=== PATIENT | female | born 1950 | race Caucasian/White ===

== ENCOUNTER 2016-10-13 14:03 | Inpatient (IN) | payer OTHER ==
[~2016-10-13] VITALS: Ht 162.6 cm; Wt 68.5 kg
[~2016-10-13 14:03] MED LIST: CLOP1TAB15 PO
[2016-10-13 15:00] VITALS: BP 175/75; PULSE 68; TEMP 36.5; O2SAT 98; Ht 162.6 cm; Wt 68.5 kg
[2016-10-13] MEDS ORDERED: ACETAMINOPHEN 325 MG TAB PO PRN (15:30)
[2016-10-13] MEDS ORDERED: MAGNESIUM HYDROXIDE SUSP 30 ML UDC PO PRN (15:30)
[2016-10-13] MEDS ORDERED: ONDANSETRON INJ 2 MG/ML 2 ML VIAL IV PRN (15:30)
[2016-10-13] MEDS ORDERED: POLYETHYLENE (MIRALAX) 17 GM PACK PO PRN (15:30)
[2016-10-13] MEDS ORDERED: ALUMINUM/MAGNESIUM/SIMETH (MAALOX MAX) 30 ML UDC PO PRN (15:30)
--- NOTE | 2016-10-13 16:20 | History and Physical ---
History & Physical Date & Time of Service: Oct 13, 2016 at 16:00 Chief Complaint: Cellulitis Of Left Heel Primary Care Physician: Rico Jeffery D.OKarina History of Present Illness Source: patient, clinic records, hospital records Patient seen and examined. 66 year old female with PMHx of PAD, HTN, HLD, and nonhealing surgical wound/skin graft site presents from wound care and infectious disease as a direct admission for wound infection. Patient has had a complicated course following a tendon transfer for dropped foot in September 2015 since then she has had a nonhealing wound with osteomyelitis as well. In July 2016 she had a skin graft placed to the area by Dr. Anderson. Since then she has been doing fairly well how ever over the last several days she has developed erythema and edema and notes a foul smelling odor. She was seen by wound care this morning and part of her skin graft is not taking well and the area appears to be possibly infected. The wound was debrided and dressed and she was instructed to return to the wound clinic in the afternoon when ID would be there. This afternoon she was seen by Dr. Timmons who suggested admission for IV antibiotics. Patient reports she has minimal feeling in her LLE. She reports feeling generally at baseline denying fevers, chills, URI symptoms, chest pain, SOB, nausea, vomiting, diarrhea, dysuria, calf pain. She will be admitted for further workup and treatment. 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 Surgical Problems: (1) S/P section Status: Chronic (2) S/p left ankle surgery Permanent Comment: 09/2015- Left Ankle Open Achilles Tendon Lengthening, Open Flexor Hallucis Longus and Flexor Digitorum Longus Lengthening, Posterior Tibial Tendon Transfer to cuboid, Posterior Ankle Capsulotomy Status: Chronic (3) S/p left hip surgery Status: Chronic (4) S/P lumbar spinal fusion Status: Chronic (5) s/p resection sarcoma left thigh Permanent Comment: [facility] 1990 Status: Chronic (6) S/P tonsillectomy and adenoidectomy Status: Chronic Family History DVT FATHER FH: CAD (coronary artery disease) MOTHER (AL age 70) FH: pulmonary embolism SISTER Social History Smoking Status: Former Smoker Alcohol Use: none Drug Use: none Marital Status: Housing status: lives with family Occupational Status: retired Immunizations History of Influenza Vaccine: Yes Influenza Vaccine Date: Apr 19, 2013 History of Tetanus Vaccine?: Unknown History of Pneumococcal: No History of Hepatitis B Vaccine: Unknown Multi-Drug Resistant Organisms History of MDRO: Yes Type of MDRO: MRSA Allergies Coded Allergies: Vancomycin (Verified Adverse Reaction, Severe, WORSENING RENAL FUNCTION, 09/01/16) Patient prescribed both vancomycin and pip/tazo therapy. Patient's vancomycin trough level for the 800mg IV q12h dosing came back subtherapeutic at 9.7mcg/ml. Vancomycin dose was changed to 1400mg IV q12h to provide an increase in trough and get a therapeutic level. However, trough level returned back on this newer dose as 19.9mcg/ml. Deemed dose to having caused a higher goal trough and determined that a lower dose of 1000mg IV q12h was needed to lower trough into goal range. However, patient's renal function had worsened on 08/02 from 0.46mg/dl for SCr on 08/01 to a SCr of 1.8mcg/ml. This could have been due to the vancomycin dosing or the combination of the patient being on vancomycin and pip/zosyn. At this point ID recommended to switch patient to daptomycin and continue on the piperacillin/tazobactam. Dr. Bagley was made aware of the situation. Renal function was to continue to be monitored as well as the vancomycin levels. Cetirizine (Verified Adverse Reaction, Unknown, BOWEL CRAMPS, 08/26/16) Home Medications Scheduled Amitriptyline Hcl (Elavil), 3 TAB PO HS Aspirin (Aspirin Ec), 81 MG PO QAM Atorvastatin (Lipitor), 20 MG PO QPM Calcium Carbonate (Calcium 600), 600 MG PO DAILY Carvedilol (Coreg), 1 TAB PO BID Citalopram Hydrobromide (Citalopram Hydrobromide), 20 MG PO DAILY Ferrous Sulfate (Ferrous Sulfate), 325 MG PO BID Fish Oil (Rome-3), 4 CAP PO DAILY Oxycodone Hcl (Oxycontin), 60 MG PO Q12 Trazodone Hcl (Trazodone), 50 MG PO HS Scheduled PRN Alprazolam (Xanax), 0.5 MG PO TID PRN for ANXIETY Oxycodone Ir (Roxicodone Ir), 5 MG PO Q4H PRN for Pain Review of Systems See above for pertinent positives & negatives. A total of 10 systems reviewed and were otherwise negative. Physical Exam Vital Signs Date Time Temp Pulse Resp B/P Pulse Ox O2 Delivery O2 Flow Rate FiO2 10/13/16 15:00 36.5 68 18 175/75 98 Room Air General Appearance: + pertinent finding (Very pleasant WD/WN 66 year old female sitting on edge of bed in NAD ) Head: normocephalic, atraumatic Eyes: PERRL, EOMI, sclerae normal ENT: hearing grossly normal, pharynx normal Neck: supple, no JVD, trachea midline Respiratory/Chest: chest non-tender, lungs clear, normal breath sounds, no respiratory distress, no accessory muscle use Cardiovascular: regular rate, rhythm, no gallop, no JVD, no murmur, normal peripheral pulses Abdomen/GI: normal bowel sounds, non tender, soft Back: normal inspection, no muscle spasm Extremities/Musculoskelatal: + pertinent finding (Left foot with dressing I/C/D , difficult to appreciate pulses, +1-2 pitting edema left foot, erythema extending up to the calf ) Neurologic/Psych: alert, oriented x 3, + pertinent finding (decreased motor and sensation LLE ) Skin: normal color, warm/dry, no rash, + pertinent finding (erythema edema to LLE with dressing I/C/D, Right thigh skin graft site well healing ) Lymphatic: no adenopathy Diagnostics Laboratory Results Results Past 24 Hours Test 10/13/16 15:34 10/13/16 15:36 Range/Units Microbiology Results 10/13/16 Blood Culture, Kathia Batch Pending 10/13/16 Blood Culture, Kathia Batch Pending Impression Assessment and Plan 66 year old female sent as direct admission from wound care for likely infection to recent skin graft NONHEALING LEFT LOWER EXTREMITY WOUND S/P SKIN GRAFT WITH SURROUNDING CELLULITIS - H/O MRSA -Admit to med/surg -Nontoxic in appears, afebrile, VS stable -CBC, PRP pending -Wound cultures, blood cultures obtain -Empirically treat with Daptomycin and Zosyn per ID -Infectious disease consult placed for further input -Wound care nurse and physician consult placed for further input -Doppler US to r/o DVT -BELINDA to obtain pedal pulses -CBC, PRP, Mg daily -contact precautions HTN -175/75 on arrival -repeat once patient has settle in -continue Coreg BID HLD -hold statin while on daptomycin PAD -continue Aspirin -Ankle brachial index pending DEPRESSION -continue Amitriptyline, Trazodone, Xanax, Celexa H/O LYMPHOSARCOMA -stable per patient CHRONIC PAIN SYNDROME -continue home pain regimen -bowel regimen ordered DVT PROPHYLAXIS: Sq Lovenox CODE STATUS: FULL CODE DISPO:In my clinical judgment this beneficiary meets acute admission criteria, established by [facility], that includes being hospitalized through two midnights. Patient seen in collaboration with Dr. Martínez Attending Note: Patient is a 66 yr old female with PMH of PAD, HTN, HLD,and left LE nonhealing surgical wound S/P skin graft, h/o osteomyelitis presents with history of redness, swelling, drainage from the wound since last few days. Patient is a direct admit on recommendations from for IV antibiotics. Physical Exam: Vital signs as noted above General; Moderately built and nourished HEENT: NC/AT, EOMI, PERRLA Neck: Supple, No JVD CVS: S1, S2, no murmur Resp: NVBS, CTA Abd: soft, non tender, BS present UI SOFTWARE DEVELOPER: AAO X3, Left LE numbness (chronic), no other gross deficits EXT: Left LE in bandage, +erythema, swelling, wound Skin: Warm Assessment and Plan: Left LE non healing wound/Cellulitis: H/O LLE dropped foot S/P fall Labs pending currently Start on IV Dapto and Zosyn per recommendations from ID Blood/Wound cultures Consult ID Check arterial and venous duplex Wound consult Agrre with assessment and plan of Megan Black PA-C as above VTE Prophylaxis VTE Risk Assessment Done? Y/N: Yes Risk Level: Moderate
[2016-10-13] MEDS ORDERED: DAPTOMYCIN CONSULT ACTIVE SCH ×2 (16:26)
[2016-10-13] MEDS ORDERED: PIPERACILL/TAZOBAC CONSULT ACTIVE PRN (16:30)
[2016-10-13] MEDS ORDERED: PATIENT'S HEIGHT AND/OR WEIGHT NEEDED SCH (16:30)
[2016-10-13 17:05] LABS: BASO % 0.6 %; BASO ABS # 0.03 K/uL (0-0.2); COMPLETE YES; EOS % 5.7 %; IG% 0.2 %; LYMPH % 41.9 %; LYMPH ABS # 2.13 K/uL (1.2-3.4); MEAN CELL VOLUME 90.2 fL (80-100); MEAN CORPUSCULAR HEMOGLOBIN 30.1 pg (25-34); MEAN CORPUSCULAR HGB CONC 33.3 g/dl (32-36); MEAN PLATELET VOLUME 9.7 fL (7.4-10.4); MONO % 6.7 %; NEUT % 44.9 %; PLATELET COUNT 182 K/uL (130-400); RED BLOOD COUNT 3.66 M/uL (4.2-5.4); WHITE BLOOD COUNT 5.08 K/uL (4.8-10.8)
[2016-10-13 17:23] LABS: INR 0.9 (0.9-1.1); PROTHROMBIN TIME (PATIENT) 10.1 SECONDS (9.0-12.0)
[2016-10-13] MEDS: DAPTOmycin IV 275 MG in SODIUM CHLORIDE 0.9% 50ML 50 ML IV SCH (17:34)
[2016-10-13 17:38] LABS: CREATININE 0.74 mg/dl (0.60-1.20)
[2016-10-13 17:39] LABS: ALB/GLOB RATIO 0.8 (0.9-2); BUN/CREATININE RATIO 23.1 (10-20); CALCIUM 9.1 mg/dl (8.5-10.1); MAGNESIUM 2.1 mg/dl (1.8-2.4); POTASSIUM 4.4 mmol/L (3.5-5.1)
[2016-10-13] MEDS ORDERED: PIPERACILL/TAZOBAC IV 3.375 GM in DEXTROSE 5% 100ML IV ONE (18:00)
[2016-10-13 18:28] VITALS: BP 157/77; PULSE 68; TEMP 36.7; O2SAT 97
--- NOTE | 2016-10-13 20:16 | DIAGNOSTIC IMAGING REPORT ---
LEFT LOWER EXTREMITY VENOUS DOPPLER CLINICAL HISTORY: Left heel cellulitis. Redness and swelling within the left lower extremity. COMPARISON STUDY: No previous studies for comparison. TECHNIQUE: Sonography of the deep venous system of the left lower extremity was performed. Compression and augmentation were evaluated. FINDINGS: The left common femoral, superficial femoral and popliteal veins were compressible. Augmentation was normal. Flow was shown within the deep calf vessels. IMPRESSION: No evidence of deep venous thrombus within the left lower extremity. Electronically signed by: Moe Mooney M.D. 10/13/2016 8:14 PM Dictated Date/Time: 10/13/2016 8:13 PM
--- NOTE | 2016-10-13 20:17 | DIAGNOSTIC IMAGING REPORT ---
BILATERAL ANKLE TO BRACHIAL INDICES CLINICAL HISTORY: Left heel cellulitis. COMPARISON STUDY: No previous studies for comparison. FINDINGS: The right ankle to brachial index measured 0.87 when using the posterior tibial artery and 0.85 when using the dorsalis pedis. The left ankle to brachial index measured 0.55 when using posterior tibial artery and dorsalis pedis. IMPRESSION: 1. Diminished left ankle to brachial index of 0.55. 2. Minimally diminished right ankle to brachial index of 0.87. Electronically signed by: Moe Mooney M.D. 10/13/2016 8:15 PM Dictated Date/Time: 10/13/2016 8:14 PM
[2016-10-13] MEDS: ENOXAPARIN 40 MG/0.4 ML SYR SQ SCH (20:33)
[2016-10-13] MEDS: FERROUS SULFATE 325 MG TAB PO SCH (20:34)
[2016-10-13] MEDS: OXYCODONE HCL 20 MG TABCR (OXYCONTIN) PO SCH (20:34)
[2016-10-13] MEDS: CARVEDILOL 6.25 MG TAB PO SCH (20:34)
[2016-10-13] MEDS: AMITRIPTYLINE HCL 25 MG TAB PO SCH (20:34)
[2016-10-13] MEDS: ALPRAZOLAM 0.5 MG TAB PO PRN (22:50)
[2016-10-13] MEDS: TRAZODONE HCL 50 MG TAB PO SCH (22:50)
[2016-10-13 23:33] VITALS: BP_SYST 174; BP_SYST 179; BP_DIAS 80; BP_DIAS 83; PULSE 75; TEMP 36.7; O2SAT 95
[2016-10-14] MEDS: PIPERACILL/TAZOBAC IV 3.375 GM in DEXTROSE 5% 100ML IV SCH ×3 (01:58→18:11)
[2016-10-14 06:09] LABS: MEAN CELL VOLUME 89.5 fL (80-100); MEAN CORPUSCULAR HEMOGLOBIN 29.2 pg (25-34); MEAN CORPUSCULAR HGB CONC 32.6 g/dl (32-36); MEAN PLATELET VOLUME 9.4 fL (7.4-10.4); PLATELET COUNT 176 K/uL (130-400); WHITE BLOOD COUNT 4.73 K/uL (4.8-10.8)
[2016-10-14 06:45] LABS: BUN/CREATININE RATIO 22.2 (10-20); CALCIUM 8.7 mg/dl (8.5-10.1); CREATININE 0.78 mg/dl (0.60-1.20); MAGNESIUM 1.9 mg/dl (1.8-2.4); POTASSIUM 4.1 mmol/L (3.5-5.1)
[2016-10-14 07:49] VITALS: BP 110/70; PULSE 65; TEMP 36.5; O2SAT 93
[2016-10-14] MEDS: ASPIRIN 81 MG ECTAB PO SCH (08:22)
[2016-10-14] MEDS: FERROUS SULFATE 325 MG TAB PO SCH ×2 (08:22→20:56)
[2016-10-14] MEDS: CITALOPRAM 20 MG TAB PO SCH (08:22)
[2016-10-14] MEDS: CARVEDILOL 6.25 MG TAB PO SCH ×2 (08:23→20:56)
[2016-10-14] MEDS: CALCIUM CARBONATE 1250MG TAB PO SCH (08:23)
[2016-10-14] MEDS: OXYCODONE HCL 20 MG TABCR (OXYCONTIN) PO SCH ×2 (08:23→20:57)
[2016-10-14] MEDS: OMEGA-3 (PURIFIED FISH OIL) 1 GM CAP PO SCH (08:23)
--- NOTE | 2016-10-14 10:19 | Medical Consult ---
Consultation Date of Consultation: Oct 14, 2016. Attending Physician: Elpidio White MD Reason for Consultation: Nonhealing wound/skin graft History of Present Illness Patient is a 66 yo female well known to myself and the ID service for nonhealing wound of the left lower extremity. She had previously required skin grafting of the left lower extremity due to nonhealing, large wound along with IV antibiotic therapy and extended PO antibiotic therapy. She has been following up at the wound care center. She states that approximately 1 week ago , she was told to start putting Santyl on her wounds which made her left medial foot wounds bleed, so she stopped putting this on. She had been continuing this on her heel wound. During her last admission, the patient also had C. Diff colitis along with her nonhealing wound. Her previous records were reviewed in detail by myself today. Patient had previous cultures growing MRSA, Enterococcus, Enterobacter, and Group B Strep. Cultures from the wound care center on 10/13 are growing Gram negative bacilli with identification and sensitivities pending. WBC count on admission was 5.08. Creatinine was 0.74. Her Hep C screen was negative. Gram stain from left foot is showing gram positive cocci and few gram negative bacilli. The patient was placed empirically on IV Zosyn and Daptomycin. Lower extremity U/S of the LLE showed no DVT. BELINDA showed diminished left BELINDA and minimally diminished right BELINDA. Past Medical/Surgical History Medical Problems: (1) Acute kidney injury Status: Acute (2) Gangrene of lower extremity Status: Acute (3) Sepsis Status: Acute Medical Problems: (1) Anxiety (2) Benign hypertension (3) Cellulitis of left lower extremity (4) Closed fracture of femur (5) Depression (6) Dyslipidemia (7) Nonhealing surgical wound (8) PAD (peripheral artery disease) (9) PFO (patent foramen ovale) (10) Sarcoma Surgical Problems: (1) S/P section (2) S/p left ankle surgery (3) S/p left hip surgery (4) S/P lumbar spinal fusion (5) s/p resection sarcoma left thigh (6) S/P tonsillectomy and adenoidectomy Family History DVT FATHER FH: CAD (coronary artery disease) MOTHER (DE age 70) FH: pulmonary embolism SISTER Noncontributory Social History Smoking Status: Former Smoker Alcohol Use: none Drug Use: none Marital Status: Housing Status: lives with family Occupation Status: retired Allergies Coded Allergies: Vancomycin (Verified Adverse Reaction, Severe, WORSENING RENAL FUNCTION, 09/01/16) Patient prescribed both vancomycin and pip/tazo therapy. Patient's vancomycin trough level for the 800mg IV q12h dosing came back subtherapeutic at 9.7mcg/ml. Vancomycin dose was changed to 1400mg IV q12h to provide an increase in trough and get a therapeutic level. However, trough level returned back on this newer dose as 19.9mcg/ml. Deemed dose to having caused a higher goal trough and determined that a lower dose of 1000mg IV q12h was needed to lower trough into goal range. However, patient's renal function had worsened on 08/02 from 0.46mg/dl for SCr on 08/01 to a SCr of 1.8mcg/ml. This could have been due to the vancomycin dosing or the combination of the patient being on vancomycin and pip/zosyn. At this point ID recommended to switch patient to daptomycin and continue on the piperacillin/tazobactam. Dr. Bagley was made aware of the situation. Renal function was to continue to be monitored as well as the vancomycin levels. Cetirizine (Verified Adverse Reaction, Unknown, BOWEL CRAMPS, 08/26/16) Home Medications Reported Home Medications Medications Dose Route/Sig Max Daily Dose Days Date Category Elavil (Amitriptyline Hcl) 25 Mg Tab 3 Tab PO HS 30 10/13/16 Reported Oxycontin (Oxycodone Hcl) 60 Mg Tab 60 Mg PO Q12 09/08/16 Reported Coreg (Carvedilol) 6.25 Mg Tab 1 Tab PO BID 90 08/20/16 Reported Roxicodone Ir (Oxycodone HCl) 5 Mg Tab 5 Mg PO Q4H PRN 07/28/16 Reported Trazodone (Trazodone HCl) 50 Mg Tab 50 Mg PO HS 05/19/16 Reported Calcium 600 (Calcium Carbonate) 600 Mg Tab 600 Mg PO DAILY 05/19/16 Reported Citalopram Hydrobromide 20 Mg Tab 20 Mg PO DAILY 03/13/15 Reported Jefferson-3 (Fish Oil) 1 Ea Cap 4 Cap PO DAILY 02/25/15 Reported Aspirin Ec (Aspirin) 81 Mg Tab 81 Mg PO QAM 02/25/15 Reported Ferrous Sulfate 325 Mg Tab 325 Mg PO BID 12/27/13 Reported Lipitor (Atorvastatin) 20 Mg Tab 20 Mg PO QPM 12/27/13 Reported Xanax (Alprazolam) 0.5 Mg Tab 0.5 Mg PO TID PRN 03/27/13 Reported Current Inpatient Medications Current Inpatient Medications Medications (Trade) Dose Ordered Sig/Ocnnor Route Start Time Stop Time Status Last Admin Dose Admin Enoxaparin Sodium (Lovenox Inj) 40 mg Q24H SQ 10/13/16 20:00 11/12/16 19:59 10/13/16 20:33 40 MG Acetaminophen (Tylenol Tab) 650 mg Q4H PRN PO 10/13/16 15:30 11/12/16 15:29 Al Hydrox/Mg Hydrox/Simethicone (Maalox Max Susp) 15 ml Q4H PRN PO 10/13/16 15:30 11/12/16 15:29 Magnesium Hydroxide (Milk Of Magnesia Susp) 30 ml Q6H PRN PO 10/13/16 15:30 11/12/16 15:29 Polyethylene (Miralax Powder Packet) 17 gm DAILY PRN PO 10/13/16 15:30 11/12/16 15:29 Ondansetron HCl (Zofran Inj) 4 mg Q6H PRN IV 10/13/16 15:30 11/12/16 15:29 Alprazolam (Xanax Tab) 0.5 mg TID PRN PO 10/13/16 15:45 11/12/16 15:44 10/13/16 22:50 0.5 MG Amitriptyline HCl (Elavil Tab) 75 mg HS PO 10/13/16 21:00 11/12/16 20:59 10/13/16 20:34 75 MG Aspirin (Ecotrin Tab) 81 mg QAM PO 10/14/16 08:00 11/13/16 07:59 10/14/16 08:22 81 MG Carvedilol (Coreg Tab) 6.25 mg BID PO 10/13/16 20:00 11/12/16 19:59 10/14/16 08:23 6.25 MG Citalopram Hydrobromide (celeXA TAB) 20 mg DAILY PO 10/14/16 08:00 11/13/16 07:59 10/14/16 08:22 20 MG Ferrous Sulfate (Feosol Tab) 325 mg BID PO 10/13/16 20:00 11/12/16 19:59 10/14/16 08:22 325 MG Fish Oil (Jefferson-3 (Purified Fish Oil) Cap) 4 gm DAILY PO 10/14/16 08:00 11/13/16 07:59 10/14/16 08:23 4 GM Oxycodone HCl (Oxycontin Tab) 60 mg Q12 PO 10/13/16 21:00 10/27/16 20:59 10/14/16 08:23 60 MG Oxycodone HCl (Roxicodone Immediate Rel Tab) 5 mg Q4H PRN PO 10/13/16 15:45 10/27/16 15:44 Trazodone HCl (Desyrel Tab) 50 mg HS PO 10/13/16 21:00 11/12/16 20:59 10/13/16 22:50 50 MG Calcium Carbonate (oS-Zi 500 TAB) 1,250 mg DAILY PO 10/14/16 08:00 11/13/16 07:59 10/14/16 08:23 1,250 MG Daptomycin (Consult) 1 ea UD N/A 10/13/16 16:26 11/12/16 16:25 Piperacillin Sod/ Tazobactam Sod 1 ea 1 ea UD PRN N/A 10/13/16 16:30 11/12/16 16:29 Daptomycin 275 mg/ Sodium Chloride 55.5 ml @ 120 mls/hr DAILY@1700 IV 10/13/16 17:00 10/23/16 16:59 10/13/16 17:34 120 MLS/HR Piperacillin Sod/ Tazobactam Sod/ Dextrose (Zosyn Iv/D5 100ml) 115 ml @ 28.75 mls/ hr Q8@0200,1000,1800 IV 10/14/16 02:00 10/23/16 13:59 10/14/16 01:58 28.75 MLS/HR Review of Systems Constitutional: No chills, No fever, No sweats Eyes: No worsening of vision ENT: No hearing loss Respiratory: No cough, No shortness of breath Cardiovascular: No chest pain, No palpitations Abdomen: No diarrhea, No nausea, No pain, No vomiting Musculoskeletal: + problem reported (left lower extremity with weeping/ bleeding wounds recently due to Santyl use) Genitourinary - Female: No dysuria, No urinary frequency Neurologic: + numbness/tingling (left lower extremity, decreased sensation) Integumentary: + new/changing skin lesions (weeping/bleeding from left lower extremity wounds), No rash Physical Exam Date Time Temp Pulse Resp B/P Pulse Ox O2 Delivery O2 Flow Rate FiO2 10/14/16 07:49 36.5 65 16 110/70 93 Room Air 10/14/16 00:20 Room Air 10/13/16 23:33 36.7 75 17 179/80 95 Room Air 174/83 10/13/16 20:15 Room Air 10/13/16 18:28 36.7 68 18 157/77 97 Room Air 10/13/16 15:00 36.5 68 18 175/75 98 Room Air General Appearance: WD/WN, no apparent distress Head: normocephalic, atraumatic Eyes: normal inspection, sclerae normal ENT: hearing grossly normal Neck: supple, trachea midline Respiratory/Chest: chest non-tender, lungs clear, normal breath sounds, no respiratory distress, no accessory muscle use Cardiovascular: regular rate, rhythm Abdomen/GI: normal bowel sounds, non tender, soft Extremities/Musculoskelatal: + pertinent finding (left lower extremity with dressing in place. c/d/i. Waffle boots on) Neurologic/Psych: alert, normal mood/affect Skin: normal color, warm/dry, no rash Laboratory Results LEFT LOWER EXTREMITY VENOUS DOPPLER CLINICAL HISTORY: Left heel cellulitis. Redness and swelling within the left lower extremity. COMPARISON STUDY: No previous studies for comparison. TECHNIQUE: Sonography of the deep venous system of the left lower extremity was performed. Compression and augmentation were evaluated. FINDINGS: The left common femoral, superficial femoral and popliteal veins were compressible. Augmentation was normal. Flow was shown within the deep calf vessels. IMPRESSION: No evidence of deep venous thrombus within the left lower extremity. BILATERAL ANKLE TO BRACHIAL INDICES CLINICAL HISTORY: Left heel cellulitis. COMPARISON STUDY: No previous studies for comparison. FINDINGS: The right ankle to brachial index measured 0.87 when using the posterior tibial artery and 0.85 when using the dorsalis pedis. The left ankle to brachial index measured 0.55 when using posterior tibial artery and dorsalis pedis. IMPRESSION: 1. Diminished left ankle to brachial index of 0.55. 2. Minimally diminished right ankle to brachial index of 0.87. RUN DATE: 10/14/16 [facility] LAB PAGE 1 RUN TIME: 09 Specimen Inquiry PATIENT: ROXANNE LOYD LOC: [facility] U # : [id number] AGE/SX: 66/F ROOM: E4 REG : 10/13/[address]: Elpidio White MD : 1950 BED: 1 DIS : STATUS: ADM IN TLOC: SPEC #: [id number] JANE: 10/13/16-JAGJITK STATUS: RES REQ #: [id number] RECD: 10/13/[address]: Megan Black PA-C SOURCE: [facility] ENTR: 10/13/16 [facility] DR: Shubham Timmons MD [facility]: FOOT LEFT Christopher, Elpidio Pena , Nando Peguero, Rico Rae D.OKarina ORDERED: SURF [facility] COMMENTS: Specimen Comment left heel Has Specimen Been Obtained/Collected? Y Procedure Result Verified Site GRAM STAIN Final 10/14/16-899 RESULT NO WBCs SEEN MODERATE GRAM POSITIVE COCCI FEW GRAM NEGATIVE BACILLI SURFACE WOUND CULTURE PENDING Item Value Date Time Blood Culture Received 10/13/16 1540 Blood Pending Blood Culture Received 10/13/16 1530 Blood Pending Gram Stain - Final Resulted 10/13/16 0000 Ulcer Foot Left Gram Stain - Final Resulted 10/13/16 0000 Ulcer Leg Lower Left Gram Stain - Final Resulted 10/13/16 0000 Skin Ankle Left Last 24 Hours Test 10/13/16 15:40 10/14/16 05:11 White Blood Count 5.08 K/uL 4.73 K/uL Red Blood Count 3.66 M/uL 3.80 M/uL Hemoglobin 11.0 g/dL 11.1 g/dL Hematocrit 33.0 % 34.0 % Mean Corpuscular Volume 90.2 fL 89.5 fL Mean Corpuscular Hemoglobin 30.1 pg 29.2 pg Mean Corpuscular Hemoglobin Concent 33.3 g/dl 32.6 g/dl Platelet Count 182 K/uL 176 K/uL Mean Platelet Volume 9.7 fL 9.4 fL Neutrophils (%) (Auto) 44.9 % Lymphocytes (%) (Auto) 41.9 % Monocytes (%) (Auto) 6.7 % Eosinophils (%) (Auto) 5.7 % Basophils (%) (Auto) 0.6 % Neutrophils # (Auto) 2.28 K/uL Lymphocytes # (Auto) 2.13 K/uL Monocytes # (Auto) 0.34 K/uL Eosinophils # (Auto) 0.29 K/uL Basophils # (Auto) 0.03 K/uL RDW Standard Deviation 47.2 fL 46.7 fL RDW Coefficient of Variation 14.3 % 14.3 % Immature Granulocyte % (Auto) 0.2 % Immature Granulocyte # (Auto) 0.01 K/uL Prothrombin Time 10.1 SECONDS Prothromb Time International Ratio 0.9 Activated Partial Thromboplast Time 26.3 SECONDS Partial Thromboplastin Ratio 1.0 Sodium Level 142 mmol/L 141 mmol/L Potassium Level 4.4 mmol/L 4.1 mmol/L Chloride Level 106 mmol/L 105 mmol/L Carbon Dioxide Level 29 mmol/L 27 mmol/L Anion Gap 7.0 mmol/L 9.0 mmol/L Blood Urea Nitrogen 17 mg/dl 17 mg/dl Creatinine 0.74 mg/dl 0.78 mg/dl Est Creatinine Clear Calc Drug Dose 65.5 ml/min 62.1 ml/min Estimated GFR () 98.5 92.5 Estimated GFR (Non- 85.0 79.8 BUN/Creatinine Ratio 23.1 22.2 Random Glucose 84 mg/dl 112 mg/dl Calcium Level 9.1 mg/dl 8.7 mg/dl Magnesium Level 2.1 mg/dl 1.9 mg/dl Total Bilirubin 0.2 mg/dl Aspartate Amino Transf (AST/SGOT) 21 U/L Alanine Aminotransferase (ALT/SGPT) 33 U/L Alkaline Phosphatase 125 U/L Total Protein 7.1 gm/dl Albumin 3.1 gm/dl Globulin 4.0 gm/dl Albumin/Globulin Ratio 0.8 Chemistry Specimen Hemolysis Hepatitis C Antibody Screen NEG Assessment & Plan Patient with infected left lower extremity nonhealing wound. She is currently on IV Daptomycin and Zosyn. Recommend continuation of broad spectrum IV antibiotic therapy pending most recent culture results. She likely will need multiple days of IV abx, and final length will be determined by improvement. We will follow. Case reviewed and agree with above assessment.
[2016-10-14] MEDS: DAPTOmycin IV 275 MG in SODIUM CHLORIDE 0.9% 50ML 50 ML IV SCH (17:02)
--- NOTE | 2016-10-14 18:03 | Progress Note ---
Internal Med Progress Note Date of Service: Oct 14, 2016. Provider Documentation: SUBJECTIVE: resting comfortable afebrile hemodynamics stable appetite ok no nausea or diarrhea OBJECTIVE: Vital Signs-as noted below Exam: General-alert and oriented ENT-normal hearing Neck-no neck masses Lungs-cta b/l no wheezing or crackles Heart-s1 and s2 heard regular rate and rhythm no murmurs Abdomen-soft bowel sounds present non tender no distension Extremities-no erythema left foot in dressing Neuro-alert and awake moves extremities Lab data as noted below. ASSESSMENT & PLAN: 66 year old female sent as direct admission from wound care for likely infection to recent skin graft NONHEALING LEFT LOWER EXTREMITY WOUND S/P SKIN GRAFT WITH SURROUNDING CELLULITIS - H/O MRSA Empirically treat with Daptomycin and Zosyn per ID appreciate ID input Wound care nurse and physician consult placed for further input -Doppler US no DVT ankle brachial index has pvd consider vascular surgery consult HTN on Coreg BID will monitor HLD holding statin while on daptomycin PAD on Aspirin DEPRESSION on Amitriptyline, Trazodone, Xanax, Celexa H/O LYMPHOSARCOMA stable per patient CHRONIC PAIN SYNDROME on home pain regimen bowel regimen ordered DVT PROPHYLAXIS: Sq Lovenox CODE STATUS: FULL CODE DISPOSITION to be determined Vital Signs: Date Time Temp Pulse Resp B/P Pulse Ox O2 Delivery O2 Flow Rate FiO2 10/14/16 08:00 Room Air 10/14/16 07:49 36.5 65 16 110/70 93 Room Air 10/14/16 00:20 Room Air 10/13/16 23:33 36.7 75 17 179/80 95 Room Air 174/83 10/13/16 20:15 Room Air 10/13/16 18:28 36.7 68 18 157/77 97 Room Air Lab Results: Results Past 24 Hours Test 10/14/16 05:11 Range/Units White Blood Count 4.73 4.8-10.8 K/uL Red Blood Count 3.80 4.2-5.4 M/uL Hemoglobin 11.1 12.0-16.0 g/dL Hematocrit 34.0 37-47 % Mean Corpuscular Volume 89.5 80-100 fL Mean Corpuscular Hemoglobin 29.2 25-34 pg Mean Corpuscular Hemoglobin Concent 32.6 32-36 g/dl RDW Standard Deviation 46.7 36.4-46.3 fL RDW Coefficient of Variation 14.3 11.5-14.5 % Platelet Count 176 130-400 K/uL Mean Platelet Volume 9.4 7.4-10.4 fL Sodium Level 141 136-145 mmol/L Potassium Level 4.1 3.5-5.1 mmol/L Chloride Level 105 98-107 mmol/L Carbon Dioxide Level 27 21-32 mmol/L Anion Gap 9.0 3-11 mmol/L Blood Urea Nitrogen 17 7-18 mg/dl Creatinine 0.78 0.60-1.20 mg/dl Est Creatinine Clear Calc Drug Dose 62.1 ml/min Estimated GFR () 92.5 Estimated GFR (Non- 79.8 BUN/Creatinine Ratio 22.2 10-20 Random Glucose 112 70-99 mg/dl Calcium Level 8.7 8.5-10.1 mg/dl Magnesium Level 1.9 1.8-2.4 mg/dl
[2016-10-14 20:55] VITALS: BP 156/72; PULSE 82
[2016-10-14] MEDS: TRAZODONE HCL 50 MG TAB PO SCH (20:58)
[2016-10-14] MEDS: ALPRAZOLAM 0.5 MG TAB PO PRN (20:59)
[2016-10-14] MEDS: AMITRIPTYLINE HCL 25 MG TAB PO SCH (20:59)
[2016-10-14] MEDS: ENOXAPARIN 40 MG/0.4 ML SYR SQ SCH (21:01)
[2016-10-15 00:13] VITALS: BP 124/71; PULSE 72; TEMP 36.9; O2SAT 92
[2016-10-15] MEDS: PIPERACILL/TAZOBAC IV 3.375 GM in DEXTROSE 5% 100ML IV SCH ×3 (02:16→18:55)
[2016-10-15] MEDS: OXYCODONE HCL IR 5 MG TAB (IMMEDIATE RELEASE) PO PRN (06:40)
[2016-10-15 07:45] VITALS: BP 147/73; PULSE 64; TEMP 36.6; O2SAT 94
[2016-10-15] MEDS: COLLAGENASE OINT 30 GM TUBE EXT SCH (09:43)
[2016-10-15] MEDS: CARVEDILOL 6.25 MG TAB PO SCH ×2 (09:47→20:10)
[2016-10-15] MEDS: CITALOPRAM 20 MG TAB PO SCH (09:47)
[2016-10-15] MEDS: ASPIRIN 81 MG ECTAB PO SCH (09:47)
[2016-10-15] MEDS: FERROUS SULFATE 325 MG TAB PO SCH ×2 (09:48→20:10)
[2016-10-15] MEDS: OMEGA-3 (PURIFIED FISH OIL) 1 GM CAP PO SCH (09:48)
[2016-10-15] MEDS: CALCIUM CARBONATE 1250MG TAB PO SCH (09:49)
[2016-10-15] MEDS: OXYCODONE HCL 20 MG TABCR (OXYCONTIN) PO SCH ×2 (09:50→21:28)
--- NOTE | 2016-10-15 15:12 | Progress Note ---
Internal Med Progress Note Date of Service: Oct 15, 2016. Provider Documentation: SUBJECTIVE: The patient was seen and examined Denies any symptoms wants to participate in Physical therapy OBJECTIVE: Vital Signs-as noted below Exam: General-No distress Eyes-Normal ENT-Normal Neck-Supple Lungs-Clear to auscultate bilaterally Heart-Regular Abdomen-Benifn,no masses,bowel sound present Extremities-No edema Neuro-AAOx3 Lab data as noted below. ASSESSMENT & PLAN: NONHEALING LEFT LOWER EXTREMITY WOUND S/P SKIN GRAFT WITH SURROUNDING CELLULITIS - H/O MRSA Wound culture is growing MRSA as well Empirically treat with Daptomycin and Zosyn per ID Appreciate ID input Wound care nurse and physician consult placed for further input Doppler US no DVT Ankle brachial index has pvd Initiate PT/OT HTN On Coreg BID Monitor HLD holding statin while on daptomycin PAD on Aspirin DEPRESSION on Amitriptyline, Trazodone, Xanax, Celexa No acue issue H/O LYMPHOSARCOMA stable per patient CHRONIC PAIN SYNDROME On home pain regimen Bowel regimen ordered DVT PROPHYLAXIS: Sq Lovenox CODE STATUS: FULL CODE DISPOSITION to be determined Vital Signs: Date Time Temp Pulse Resp B/P Pulse Ox O2 Delivery O2 Flow Rate FiO2 10/15/16 07:45 36.6 64 16 147/73 94 Room Air 10/15/16 00:13 36.9 72 20 124/71 92 Room Air 10/15/16 00:05 Room Air 10/14/16 20:55 82 156/72 10/14/16 20:00 Room Air 10/14/16 16:00 Room Air
[2016-10-15 15:50] VITALS: BP 147/78; PULSE 74; TEMP 37; O2SAT 92
[2016-10-15] MEDS: DAPTOmycin IV 275 MG in SODIUM CHLORIDE 0.9% 50ML 50 ML IV SCH (18:03)
[2016-10-15] MEDS: ENOXAPARIN 40 MG/0.4 ML SYR SQ SCH (20:08)
[2016-10-15 20:10] VITALS: BP 146/66; PULSE 76
[2016-10-15] MEDS: AMITRIPTYLINE HCL 25 MG TAB PO SCH (21:27)
[2016-10-15] MEDS: TRAZODONE HCL 50 MG TAB PO SCH (21:27)
[2016-10-15] MEDS: ALPRAZOLAM 0.5 MG TAB PO PRN (21:28)
[2016-10-15 23:58] VITALS: BP 157/77; PULSE 76; TEMP 37.2; O2SAT 94
[2016-10-16] MEDS: PIPERACILL/TAZOBAC IV 3.375 GM in DEXTROSE 5% 100ML IV SCH ×3 (02:28→19:05)
[2016-10-16 06:15] LABS: HEMATOCRIT 31.8 % (37-47); MEAN CELL VOLUME 91.1 fL (80-100); MEAN CORPUSCULAR HEMOGLOBIN 30.4 pg (25-34); MEAN CORPUSCULAR HGB CONC 33.3 g/dl (32-36); MEAN PLATELET VOLUME 9.5 fL (7.4-10.4); PLATELET COUNT 197 K/uL (130-400); RED BLOOD COUNT 3.49 M/uL (4.2-5.4); WHITE BLOOD COUNT 4.52 K/uL (4.8-10.8)
[2016-10-16 06:49] LABS: CREATININE 0.74 mg/dl (0.60-1.20)
[2016-10-16 07:31] VITALS: BP 126/75; PULSE 65; TEMP 36.6; O2SAT 91
[2016-10-16] MEDS: CARVEDILOL 6.25 MG TAB PO SCH ×2 (09:02→21:01)
[2016-10-16] MEDS: ASPIRIN 81 MG ECTAB PO SCH (09:02)
[2016-10-16] MEDS: CITALOPRAM 20 MG TAB PO SCH (09:02)
[2016-10-16] MEDS: OMEGA-3 (PURIFIED FISH OIL) 1 GM CAP PO SCH (09:03)
[2016-10-16] MEDS: OXYCODONE HCL 20 MG TABCR (OXYCONTIN) PO SCH ×2 (09:03→20:59)
[2016-10-16] MEDS: CALCIUM CARBONATE 1250MG TAB PO SCH (09:03)
[2016-10-16] MEDS: FERROUS SULFATE 325 MG TAB PO SCH ×2 (09:03→21:01)
[2016-10-16] MEDS: COLLAGENASE OINT 30 GM TUBE EXT SCH (09:51)
[2016-10-16 15:41] VITALS: BP 115/68; PULSE 71; TEMP 36.8; O2SAT 92
[2016-10-16 15:45] VITALS: O2SAT 92
--- NOTE | 2016-10-16 15:51 | Progress Note ---
Internal Med Progress Note Date of Service: Oct 16, 2016. Provider Documentation: SUBJECTIVE: The patient was seen and examined Denies any symptoms Brighter today Waiting for PT OBJECTIVE: Vital Signs-as noted below Exam: General-No distress at rets Eyes-Normal ENT-Normal Neck-Supple Lungs-Clear to auscultate bilaterally Heart-Regular Abdomen-Benign,no masses,bowel sound present Extremities-No edema Neuro-AAOx3 Lab data as noted below. ASSESSMENT & PLAN: NONHEALING LEFT LOWER EXTREMITY WOUND S/P SKIN GRAFT WITH SURROUNDING CELLULITIS - H/O MRSA Wound culture is growing MRSA as well Empirically treat with Daptomycin and Zosyn per ID Appreciate ID input Wound care nurse and physician consult placed for further input Doppler US no DVT Ankle brachial index has pvd Initiate PT/OT HTN On Coreg BID Well controlled HLD Holding statin while on daptomycin PAD On Aspirin DEPRESSION On Amitriptyline, Trazodone, Xanax, Celexa No acue issue H/O LYMPHOSARCOMA Stable per patient CHRONIC PAIN SYNDROME On home pain regimen Bowel regimen ordered DVT PROPHYLAXIS: Sq Lovenox CODE STATUS: FULL CODE DISPOSITION To be determined Vital Signs: Date Time Temp Pulse Resp B/P Pulse Ox O2 Delivery O2 Flow Rate FiO2 10/16/16 15:41 36.8 71 18 115/68 92 Room Air 10/16/16 09:24 Room Air 10/16/16 07:31 36.6 65 18 126/75 91 Room Air 10/16/16 00:30 Room Air 10/15/16 23:58 37.2 76 20 157/77 94 Room Air 10/15/16 20:10 76 146/66 10/15/16 20:00 Room Air 10/15/16 16:00 Room Air 10/15/16 15:50 37.0 74 18 147/78 92 Room Air Lab Results: Results Past 24 Hours Test 10/16/16 05:13 Range/Units White Blood Count 4.52 4.8-10.8 K/uL Red Blood Count 3.49 4.2-5.4 M/uL Hemoglobin 10.6 12.0-16.0 g/dL Hematocrit 31.8 37-47 % Mean Corpuscular Volume 91.1 80-100 fL Mean Corpuscular Hemoglobin 30.4 25-34 pg Mean Corpuscular Hemoglobin Concent 33.3 32-36 g/dl RDW Standard Deviation 46.3 36.4-46.3 fL RDW Coefficient of Variation 14.1 11.5-14.5 % Platelet Count 197 130-400 K/uL Mean Platelet Volume 9.5 7.4-10.4 fL Creatinine 0.74 0.60-1.20 mg/dl Est Creatinine Clear Calc Drug Dose 65.5 ml/min Estimated GFR () 98.5 Estimated GFR (Non- 85.0
[2016-10-16] MEDS: DAPTOmycin IV 275 MG in SODIUM CHLORIDE 0.9% 50ML 50 ML IV SCH (16:56)
[2016-10-16] MEDS: ALPRAZOLAM 0.5 MG TAB PO PRN (20:58)
[2016-10-16 21:00] VITALS: BP 174/91; PULSE 75
[2016-10-16] MEDS: TRAZODONE HCL 50 MG TAB PO SCH (21:02)
[2016-10-16] MEDS: AMITRIPTYLINE HCL 25 MG TAB PO SCH (21:02)
[2016-10-16] MEDS: ENOXAPARIN 40 MG/0.4 ML SYR SQ SCH (21:02)
[2016-10-17] VITALS (7 sets, daily range): BP systolic 110–171; BP diastolic 63–78; PULSE 68–78; TEMP 36.5–36.7; O2SAT 92–94
[2016-10-17] MEDS: PIPERACILL/TAZOBAC IV 3.375 GM in DEXTROSE 5% 100ML IV SCH ×2 (01:44→10:33)
[2016-10-17] MEDS: CITALOPRAM 20 MG TAB PO SCH (08:52)
[2016-10-17] MEDS: CALCIUM CARBONATE 1250MG TAB PO SCH (08:53)
[2016-10-17] MEDS: CARVEDILOL 6.25 MG TAB PO SCH ×2 (08:53→19:44)
[2016-10-17] MEDS: FERROUS SULFATE 325 MG TAB PO SCH ×2 (08:53→19:44)
[2016-10-17] MEDS: OMEGA-3 (PURIFIED FISH OIL) 1 GM CAP PO SCH (08:54)
[2016-10-17] MEDS: OXYCODONE HCL 20 MG TABCR (OXYCONTIN) PO SCH ×2 (08:54→21:12)
[2016-10-17] MEDS: ASPIRIN 81 MG ECTAB PO SCH (08:54)
[2016-10-17] MEDS: COLLAGENASE OINT 30 GM TUBE EXT SCH (08:54)
--- NOTE | 2016-10-17 12:43 | Infectious Disease Progress Nt ---
Progress Note Date of Service Oct 17, 2016. Subjective Pt evaluation today including: conversation w/ patient, physical exam, chart review, lab review, review of studies, conversation w/ community health consultant (Pharmacy), review of inpatient medication list WBC count yesterday was 4.52. Creatinine is stable at 0.74. She continued on IV Daptomycin and Zosyn. I spoke with pharmacy- recommended deescalation since the patient's cultures are back. Her wound cultures are growing MRSA and Pasteurella Multocida. Blood cultures have shown no growth to date. She is feeling better. She states that she does not have pain in the left lower extremity currently. She has not had as much drainage either. She denies nausea , diarrhea, or abdominal pain. All Other Systems: Reviewed and Negative Medications Current Inpatient Medications Medications (Trade) Dose Ordered Sig/Connor Route Start Time Stop Time Status Last Admin Dose Admin Enoxaparin Sodium (Lovenox Inj) 40 mg Q24H SQ 10/13/16 20:00 11/12/16 19:59 10/16/16 21:02 40 MG Acetaminophen (Tylenol Tab) 650 mg Q4H PRN PO 10/13/16 15:30 11/12/16 15:29 Al Hydrox/Mg Hydrox/Simethicone (Maalox Max Susp) 15 ml Q4H PRN PO 10/13/16 15:30 11/12/16 15:29 Magnesium Hydroxide (Milk Of Magnesia Susp) 30 ml Q6H PRN PO 10/13/16 15:30 11/12/16 15:29 Polyethylene (Miralax Powder Packet) 17 gm DAILY PRN PO 10/13/16 15:30 11/12/16 15:29 Ondansetron HCl (Zofran Inj) 4 mg Q6H PRN IV 10/13/16 15:30 11/12/16 15:29 Alprazolam (Xanax Tab) 0.5 mg TID PRN PO 10/13/16 15:45 11/12/16 15:44 10/16/16 20:58 0.5 MG Amitriptyline HCl (Elavil Tab) 75 mg HS PO 10/13/16 21:00 11/12/16 20:59 10/16/16 21:02 75 MG Aspirin (Ecotrin Tab) 81 mg QAM PO 10/14/16 08:00 11/13/16 07:59 10/17/16 08:54 81 MG Carvedilol (Coreg Tab) 6.25 mg BID PO 10/13/16 20:00 11/12/16 19:59 10/17/16 08:53 6.25 MG Citalopram Hydrobromide (celeXA TAB) 20 mg DAILY PO 10/14/16 08:00 11/13/16 07:59 10/17/16 08:52 20 MG Ferrous Sulfate (Feosol Tab) 325 mg BID PO 10/13/16 20:00 11/12/16 19:59 10/17/16 08:53 325 MG Fish Oil ([place]-3 (Purified Fish Oil) Cap) 4 gm DAILY PO 10/14/16 08:00 11/13/16 07:59 10/17/16 08:54 4 GM Oxycodone HCl (Oxycontin Tab) 60 mg Q12 PO 10/13/16 21:00 10/27/16 20:59 10/17/16 08:54 60 MG Oxycodone HCl (Roxicodone Immediate Rel Tab) 5 mg Q4H PRN PO 10/13/16 15:45 10/27/16 15:44 10/15/16 06:40 5 MG Trazodone HCl (Desyrel Tab) 50 mg HS PO 10/13/16 21:00 11/12/16 20:59 10/16/16 21:02 50 MG Calcium Carbonate (oS-Zi 500 TAB) 1,250 mg DAILY PO 10/14/16 08:00 11/13/16 07:59 10/17/16 08:53 1,250 MG Daptomycin 1 ea 1 ea UD N/A 10/13/16 16:26 11/12/16 16:25 Daptomycin/Sodium Chloride (Cubicin IV/Nss 50ml) 55.5 ml @ 120 mls/hr DAILY@1700 IV 10/13/16 17:00 10/23/16 16:59 10/16/16 16:56 120 MLS/HR Collagenase 1 appln 1 appln DAILY EXT 10/15/16 08:00 11/14/16 07:59 Ampicillin Sodium/ Sulbactam Sodium/ Sodium Chloride (Unasyn Inj/Nss 100ml) 104 ml @ 200 mls/hr Q6H IV 10/17/16 16:00 10/27/16 15:59 Objective Vital Signs Date Time Temp Pulse Resp B/P Pulse Ox O2 Delivery O2 Flow Rate FiO2 10/17/16 11:00 Room Air 10/17/16 07:51 36.7 68 18 110/71 92 Room Air 10/17/16 04:00 70 127/66 10/17/16 00:30 Room Air 10/16/16 21:00 75 174/91 10/16/16 15:45 92 Room Air 10/16/16 15:41 36.8 71 18 115/68 92 Room Air Physical Exam General Appearance: WD/WN, no apparent distress Eyes: normal inspection, sclerae normal ENT: hearing grossly normal Neck: supple, trachea midline Respiratory/Chest: chest non-tender, lungs clear, normal breath sounds, no respiratory distress, no accessory muscle use Cardiovascular: regular rate, rhythm Abdomen: normal bowel sounds, non tender, soft Extremities: + pertinent finding (left lower extremity with wound on the left heel and also 2 small wounds on the medial left lower extremity. Minimal drainage today. Mild erythema of the mid-anterior tibial surface of the LLE) Neurologic/Psychiatric: alert, normal mood/affect Skin: warm/dry, no rash Laboratory Results RUN DATE: 10/15/16 [facility] PAGE 1 RUN TIME: 5095 Specimen Inquiry PATIENT: ROXANNE LOYD LOC: Jerry Tripp # : [id number] AGE/SX: 66/F ROOM: E404 REG : 10/13/[address]: Berna Gloria M.D. : 1950 BED: 1 DIS : STATUS: ADM IN TLOC: SPEC #: [id number] JANE: 10/13/16-UNK STATUS: COMP REQ #: [id number] RECD: 10/13/[address]: Megan Black PA-C SOURCE: ULCER ENTR: 10/13/[address]: Shubham Timmons MD SPDESC: LEG Elpidio Argueta , Nando Peguero, Rico Rae, D.OKarina ORDERED: SURF WND CU/SMR COMMENTS: Has Specimen Been Obtained/Collected? Y Procedure Result Verified Site GRAM STAIN Final 10/14/16-906 RESULT NO WBCs SEEN FEW GRAM POSITIVE COCCI SURFACE WOUND CULTURE Final 10/15/16-1334 Organism 1 STAPHYLOCOCCUS AUREUS QUANITY MODERATE SENS SENSITIVITY TO FOLLOW Organism 2 PASTEURELLA MULTOCIDA QUANITY MODERATE SENS NO SENSITIVITY TO FOLLOW SENSITIVITY RESULT INDICATES A METHICILLIN RESISTANT STAPH. AUREUS. PHONED TO ENRRIQUE RAMEZ ON 10/15/16 AT 1150 BY Valentin Jim. Results were verbalized back to AUSTEN. RESULTS WERE ALSO CALLED TO [facility] INFECTION CONTROL ANSWERING MACHINE ON 10/15/16 BY AUSTEN. 1. STAPHYLOCOCCUS AUREUS Target Route Dose RX AB Cost M.I.C. IQ ------ ----- ------ -- ------ -------- - ------ TRIMET/SULFA S <=0.5/ 9.5 * OXACILLIN R * >2 VANCOMYCIN S 2 ERYTHROMYCIN R >4 TETRACYCLINE S <=4 CLINDAMYCIN R >4 DAPTOMYCIN S <=0.5 RIFAMPIN S <=1 S = SENSITIVE I = INTERMEDIATE R = RESISTANT Item Value Date Time Blood Culture - Preliminary Resulted 10/13/16 1540 Blood NO GROWTH TO DATE. Blood Culture - Preliminary Resulted 10/13/16 1530 Blood NO GROWTH TO DATE. Gram Stain - Final Complete 10/13/16 0000 Ulcer Foot Left Gram Stain - Final Complete 10/13/16 0000 Ulcer Leg Lower Left Gram Stain - Final Complete 10/13/16 0000 Skin Ankle Left Assessment and Plan Patient with infected left lower extremity nonhealing wound. She is currently on IV Daptomycin and Zosyn. Will change to IV Unasyn and continue IV Daptomycin for now. Pending further improvement, the patient will continue IV abx therapy. Likely will attempt transition to PO therapy if she continues to improve. We will follow. Plan: 1. Continue IV Daptomycin 2. D/C Zosyn- change to IV Unasyn Case reviewed and agree with above assessment
[2016-10-17] MEDS: AMPICILLIN/SULBACTAM SOD INJ 1,500 MG in SODIUM CHLORIDE 0.9% 100ML 100 ML IV SCH ×2 (15:58→21:51)
[2016-10-17] MEDS: DAPTOmycin IV 275 MG in SODIUM CHLORIDE 0.9% 50ML 50 ML IV SCH (17:00)
--- NOTE | 2016-10-17 17:21 | Progress Note ---
Internal Med Progress Note Date of Service: Oct 17, 2016. Provider Documentation: SUBJECTIVE: The patient was seen and examined Denies any symptoms Brighter today Waiting for PT Leg wound is getting better OBJECTIVE: Vital Signs-as noted below Exam: General-No distress at rest Eyes-Normal ENT-Normal Neck-Supple Lungs-Clear to auscultate bilaterally Heart-Regular Abdomen-Benign,no masses,bowel sound present Extremities-No edema Left heel wound is seen today About 4-5 cm sq and 1 cm deep Nice granulation tissue No Pus Neuro-AAOx3 Lab data as noted below. ASSESSMENT & PLAN: NONHEALING LEFT LOWER EXTREMITY WOUND S/P SKIN GRAFT WITH SURROUNDING CELLULITIS - H/O MRSA Wound culture is growing MRSA as well Empirically treat with Daptomycin and Zosyn per ID Appreciate ID input Wound care nurse and physician consult placed for further input Doppler US no DVT Ankle brachial index has pvd Left heel wound is seen today About 4-5 cm sq and 1 cm deep Nice granulation tissue No drainage Initiate PT/OT-tolerating well Continue IV Dapto and IV Unasyn for now May be transition to oral on discharge HTN On Coreg BID Well controlled HLD Holding statin while on daptomycin PAD On Aspirin DEPRESSION On Amitriptyline, Trazodone, Xanax, Celexa No acue issue H/O LYMPHOSARCOMA Stable per patient CHRONIC PAIN SYNDROME On home pain regimen Bowel regimen ordered DVT PROPHYLAXIS: Sq Lovenox CODE STATUS: FULL CODE DISPOSITION To be determined Vital Signs: Date Time Temp Pulse Resp B/P Pulse Ox O2 Delivery O2 Flow Rate FiO2 10/17/16 17:04 68 134/63 10/17/16 16:00 94 Room Air 10/17/16 15:18 36.7 74 22 171/78 94 Room Air 10/17/16 11:00 Room Air 10/17/16 07:51 36.7 68 18 110/71 92 Room Air 10/17/16 04:00 70 127/66 10/17/16 00:30 Room Air 10/16/16 21:00 75 174/91
[2016-10-17] MEDS: ENOXAPARIN 40 MG/0.4 ML SYR SQ SCH (19:44)
[2016-10-17] MEDS: AMITRIPTYLINE HCL 25 MG TAB PO SCH (21:11)
[2016-10-17] MEDS: TRAZODONE HCL 50 MG TAB PO SCH (21:11)
[2016-10-17] MEDS: ALPRAZOLAM 0.5 MG TAB PO PRN (21:12)
[2016-10-18] MEDS: AMPICILLIN/SULBACTAM SOD INJ 1,500 MG in SODIUM CHLORIDE 0.9% 100ML 100 ML IV SCH ×4 (03:52→22:07)
[2016-10-18 07:34] VITALS: BP 153/81; PULSE 70; TEMP 36.6; O2SAT 95
[2016-10-18] MEDS: COLLAGENASE OINT 30 GM TUBE EXT SCH (08:45)
[2016-10-18] MEDS: CALCIUM CARBONATE 1250MG TAB PO SCH (08:46)
[2016-10-18] MEDS: CARVEDILOL 6.25 MG TAB PO SCH ×2 (08:46→20:40)
[2016-10-18] MEDS: OXYCODONE HCL 20 MG TABCR (OXYCONTIN) PO SCH ×2 (08:46→20:42)
[2016-10-18] MEDS: FERROUS SULFATE 325 MG TAB PO SCH ×2 (08:46→20:41)
[2016-10-18] MEDS: ASPIRIN 81 MG ECTAB PO SCH (08:46)
[2016-10-18] MEDS: OMEGA-3 (PURIFIED FISH OIL) 1 GM CAP PO SCH (08:46)
[2016-10-18] MEDS: CITALOPRAM 20 MG TAB PO SCH (08:47)
--- NOTE | 2016-10-18 09:31 | PROGRESS NOTE ---
DATE: 10/14/2016 SUBJECTIVE: The patient is seen today for followup following admission to [facility] yesterday for the management of cellulitis to the left lower extremity in the face of a recent split thickness grafting. The patient denies any specific systemic complaints today. OBJECTIVE: The patient's vital signs were reviewed and found to be unremarkable. The patient is afebrile. The patient is currently receiving intravenous antibiotic therapy. Review of the patient's wound sites are essentially unchanged from yesterday's visit in the outpatient wound clinic. There is no increased erythema or active drainage from either the postoperative ulcerations or from the stage II pressure ulcer of the left heel. Odor that was present yesterday seems to have dissipated. ASSESSMENT: 1. Stage II pressure ulcer left heel, stable. 2. Postoperative ulcerations of the incision site left lower extremity. PLAN: At this time, the left heel will be managed with any irrigating wound VAC, 2 hours off and 10 minutes on, irrigation with normal saline. It is anticipated upon discharge that this may be converted to an outpatient wound VAC. The incision ulcerations will be managed with Silvercel and gauze, changed daily. The patient will continue to be monitored on the inpatient side and be followed up upon discharge.
--- NOTE | 2016-10-18 13:41 | Infectious Disease Progress Nt ---
Progress Note Date of Service Oct 18, 2016. Subjective Pt evaluation today including: conversation w/ patient, physical exam, chart review, lab review, review of studies, review of inpatient medication list Patient is emotional this morning because she states that her is in the ED after passing out at home. She states that otherwise she is feeling well. She is tolerating he abx well. She continue to have an irrigating wound vac in place. No new labs or imaging studies. Blood cultures continue show no growth. All Other Systems: Reviewed and Negative Medications Current Inpatient Medications Medications (Trade) Dose Ordered Sig/Connor Route Start Time Stop Time Status Last Admin Dose Admin Enoxaparin Sodium (Lovenox Inj) 40 mg Q24H SQ 10/13/16 20:00 11/12/16 19:59 10/17/16 19:44 40 MG Acetaminophen (Tylenol Tab) 650 mg Q4H PRN PO 10/13/16 15:30 11/12/16 15:29 Al Hydrox/Mg Hydrox/Simethicone (Maalox Max Susp) 15 ml Q4H PRN PO 10/13/16 15:30 11/12/16 15:29 Magnesium Hydroxide (Milk Of Magnesia Susp) 30 ml Q6H PRN PO 10/13/16 15:30 11/12/16 15:29 Polyethylene (Miralax Powder Packet) 17 gm DAILY PRN PO 10/13/16 15:30 11/12/16 15:29 Ondansetron HCl (Zofran Inj) 4 mg Q6H PRN IV 10/13/16 15:30 11/12/16 15:29 Alprazolam (Xanax Tab) 0.5 mg TID PRN PO 10/13/16 15:45 11/12/16 15:44 10/17/16 21:12 0.5 MG Amitriptyline HCl (Elavil Tab) 75 mg HS PO 10/13/16 21:00 11/12/16 20:59 10/17/16 21:11 75 MG Aspirin (Ecotrin Tab) 81 mg QAM PO 10/14/16 08:00 11/13/16 07:59 10/18/16 08:46 81 MG Carvedilol (Coreg Tab) 6.25 mg BID PO 10/13/16 20:00 11/12/16 19:59 10/18/16 08:46 6.25 MG Citalopram Hydrobromide (celeXA TAB) 20 mg DAILY PO 10/14/16 08:00 11/13/16 07:59 10/18/16 08:47 20 MG Ferrous Sulfate (Feosol Tab) 325 mg BID PO 10/13/16 20:00 11/12/16 19:59 10/18/16 08:46 325 MG Fish Oil ([place]-3 (Purified Fish Oil) Cap) 4 gm DAILY PO 10/14/16 08:00 11/13/16 07:59 10/18/16 08:46 4 GM Oxycodone HCl (Oxycontin Tab) 60 mg Q12 PO 10/13/16 21:00 10/27/16 20:59 10/18/16 08:46 60 MG Oxycodone HCl (Roxicodone Immediate Rel Tab) 5 mg Q4H PRN PO 10/13/16 15:45 10/27/16 15:44 10/15/16 06:40 5 MG Trazodone HCl (Desyrel Tab) 50 mg HS PO 10/13/16 21:00 11/12/16 20:59 10/17/16 21:11 50 MG Calcium Carbonate (oS-Zi 500 TAB) 1,250 mg DAILY PO 10/14/16 08:00 11/13/16 07:59 10/18/16 08:46 1,250 MG Daptomycin 1 ea 1 ea UD N/A 10/13/16 16:26 11/12/16 16:25 Daptomycin/Sodium Chloride (Cubicin IV/Nss 50ml) 55.5 ml @ 120 mls/hr DAILY@1700 IV 10/13/16 17:00 10/23/16 16:59 10/17/16 17:00 120 MLS/HR Collagenase 1 appln 1 appln DAILY EXT 10/15/16 08:00 11/14/16 07:59 Ampicillin Sodium/ Sulbactam Sodium/ Sodium Chloride (Unasyn Inj/Nss 100ml) 104 ml @ 200 mls/hr Q6H IV 10/17/16 16:00 10/27/16 15:59 10/18/16 10:24 200 MLS/HR Objective Vital Signs Date Time Temp Pulse Resp B/P Pulse Ox O2 Delivery O2 Flow Rate FiO2 10/18/16 08:00 Room Air 10/18/16 07:34 36.6 70 20 153/81 95 Room Air 10/18/16 00:00 Room Air 10/17/16 23:46 36.5 70 16 147/76 93 Room Air 10/17/16 20:02 78 147/78 10/17/16 17:04 68 134/63 10/17/16 16:00 94 Room Air 10/17/16 15:18 36.7 74 22 171/78 94 Room Air Physical Exam General Appearance: WD/WN, + mild distress (emotional) Eyes: normal inspection, sclerae normal ENT: hearing grossly normal Neck: supple, trachea midline Respiratory/Chest: no respiratory distress, no accessory muscle use Cardiovascular: regular rate, rhythm Extremities: + pertinent finding (dressing intact left LE. Irrigating wound vac in place on heel) Neurologic/Psychiatric: alert, + depressed affect Skin: warm/dry, no rash, + pertinent finding (very mild erythema of the upper left lower extremity.) Laboratory Results Item Value Date Time Blood Culture - Preliminary Resulted 10/13/16 1540 Blood NO GROWTH TO DATE. Blood Culture - Preliminary Resulted 10/13/16 1530 Blood NO GROWTH TO DATE. Gram Stain - Final Complete 10/13/16 0000 Ulcer Foot Left Gram Stain - Final Complete 10/13/16 0000 Ulcer Leg Lower Left Gram Stain - Final Complete 10/13/16 0000 Skin Ankle Left Assessment and Plan Patient with infected left lower extremity nonhealing wound. She is currently on IV Daptomycin and Unasyn. Pending further improvement, the patient will continue IV abx therapy. Likely will attempt transition to PO therapy in 1-2 days if she continues to improve. We will follow. Plan: 1. Continue IV Daptomycin and IV Unasyn
[2016-10-18 15:27] VITALS: BP 154/75; PULSE 75; TEMP 36.8; O2SAT 93
--- NOTE | 2016-10-18 15:39 | Progress Note ---
Internal Med Progress Note Date of Service: Oct 18, 2016. Provider Documentation: SUBJECTIVE: The patient was seen and examined Denies any symptoms Sad as her is in ER with syncope Denies any complaints OBJECTIVE: Vital Signs-as noted below Exam: General-No distress at rest Eyes-Normal ENT-Normal Neck-Supple Lungs-Clear to auscultate bilaterally Heart-Regular Abdomen-Benign,no masses,bowel sound present Extremities-No edema Left heel wound is seen today About 4-5 cm sq and 1 cm deep Nice granulation tissue No Pus Neuro-AAOx3 Lab data as noted below. ASSESSMENT & PLAN: NONHEALING LEFT LOWER EXTREMITY WOUND S/P SKIN GRAFT WITH SURROUNDING CELLULITIS - H/O MRSA Wound culture is growing MRSA as well Empirically treat with Daptomycin and Zosyn per ID Appreciate ID input Wound care nurse and physician consult placed for further input Doppler US no DVT Ankle brachial index has pvd Left heel wound is seen today About 4-5 cm sq and 1 cm deep Nice granulation tissue No drainage Initiate PT/OT-tolerating well Continue IV Dapto and IV Unasyn for now May be transition to oral on discharge Appreciate Wound care provider input HTN On Coreg BID Slightly on the upper side today HLD Holding statin while on daptomycin PAD On Aspirin DEPRESSION On Amitriptyline, Trazodone, Xanax, Celexa No acute issue H/O LYMPHOSARCOMA Stable per patient CHRONIC PAIN SYNDROME On home pain regimen Bowel regimen ordered DVT PROPHYLAXIS: Sq Lovenox CODE STATUS: FULL CODE DISPOSITION To be determined Vital Signs: Date Time Temp Pulse Resp B/P Pulse Ox O2 Delivery O2 Flow Rate FiO2 10/18/16 15:27 36.8 75 16 154/75 93 Room Air 10/18/16 08:00 Room Air 10/18/16 07:34 36.6 70 20 153/81 95 Room Air 10/18/16 00:00 Room Air 10/17/16 23:46 36.5 70 16 147/76 93 Room Air 10/17/16 20:02 78 147/78 10/17/16 17:04 68 134/63 10/17/16 16:00 94 Room Air
[2016-10-18] MEDS: DAPTOmycin IV 275 MG in SODIUM CHLORIDE 0.9% 50ML 50 ML IV SCH (16:37)
[2016-10-18 20:00] VITALS: BP 165/79; PULSE 73; TEMP 36.7; O2SAT 93
[2016-10-18] MEDS: ENOXAPARIN 40 MG/0.4 ML SYR SQ SCH (20:00)
[2016-10-18] MEDS: TRAZODONE HCL 50 MG TAB PO SCH (20:38)
[2016-10-18] MEDS: AMITRIPTYLINE HCL 25 MG TAB PO SCH (20:39)
[2016-10-18] MEDS: OXYCODONE HCL IR 5 MG TAB (IMMEDIATE RELEASE) PO PRN (22:07)
[2016-10-18 23:39] VITALS: BP 150/74; PULSE 69; TEMP 37; O2SAT 93
[2016-10-19] MEDS: AMPICILLIN/SULBACTAM SOD INJ 1,500 MG in SODIUM CHLORIDE 0.9% 100ML 100 ML IV SCH ×4 (04:10→21:46)
[2016-10-19 06:23] LABS: HEMATOCRIT 33.9 % (37-47); MEAN CELL VOLUME 90.9 fL (80-100); MEAN PLATELET VOLUME 9.5 fL (7.4-10.4); PLATELET COUNT 192 K/uL (130-400); RED BLOOD COUNT 3.73 M/uL (4.2-5.4)
[2016-10-19 06:49] LABS: CREATININE 0.69 mg/dl (0.60-1.20)
[2016-10-19 07:49] VITALS: BP 158/80; PULSE 66; TEMP 36.6; O2SAT 93
[2016-10-19] MEDS: COLLAGENASE OINT 30 GM TUBE EXT SCH (08:00)
[2016-10-19] MEDS: CARVEDILOL 6.25 MG TAB PO SCH ×2 (08:26→21:50)
[2016-10-19] MEDS: ASPIRIN 81 MG ECTAB PO SCH (08:26)
[2016-10-19] MEDS: OMEGA-3 (PURIFIED FISH OIL) 1 GM CAP PO SCH (08:26)
[2016-10-19] MEDS: FERROUS SULFATE 325 MG TAB PO SCH ×2 (08:26→21:45)
[2016-10-19] MEDS: CITALOPRAM 20 MG TAB PO SCH (08:26)
[2016-10-19] MEDS: CALCIUM CARBONATE 1250MG TAB PO SCH (08:27)
[2016-10-19 08:30] VITALS: O2SAT 93
[2016-10-19] MEDS: OXYCODONE HCL 20 MG TABCR (OXYCONTIN) PO SCH ×2 (08:32→21:46)
[2016-10-19 15:57] VITALS: BP 145/77; PULSE 68; TEMP 36.9; O2SAT 95
[2016-10-19] MEDS: OXYCODONE HCL IR 5 MG TAB (IMMEDIATE RELEASE) PO PRN (16:13)
--- NOTE | 2016-10-19 16:19 | Infectious Disease Progress Nt ---
Progress Note Date of Service Oct 19, 2016. Subjective Pt evaluation today including: conversation w/ patient, physical exam, chart review, lab review, review of studies, review of inpatient medication list WBC count this morning was 4.90. Her creatinine remained stable at 0.69. Her blood cultures were finalized with no growth. Patient is feeling well today. She is experiencing some pain in the left lower extremity especially on the medial side today. I spoke to Tatiana with wound care and she will be changing the patient's irrigating vac tomorrow. All Other Systems: Reviewed and Negative Medications Current Inpatient Medications Medications (Trade) Dose Ordered Sig/Connor Route Start Time Stop Time Status Last Admin Dose Admin Enoxaparin Sodium (Lovenox Inj) 40 mg Q24H SQ 10/13/16 20:00 11/12/16 19:59 10/18/16 20:00 40 MG Acetaminophen (Tylenol Tab) 650 mg Q4H PRN PO 10/13/16 15:30 11/12/16 15:29 Al Hydrox/Mg Hydrox/Simethicone (Maalox Max Susp) 15 ml Q4H PRN PO 10/13/16 15:30 11/12/16 15:29 Magnesium Hydroxide (Milk Of Magnesia Susp) 30 ml Q6H PRN PO 10/13/16 15:30 11/12/16 15:29 Polyethylene (Miralax Powder Packet) 17 gm DAILY PRN PO 10/13/16 15:30 11/12/16 15:29 Ondansetron HCl (Zofran Inj) 4 mg Q6H PRN IV 10/13/16 15:30 11/12/16 15:29 Alprazolam (Xanax Tab) 0.5 mg TID PRN PO 10/13/16 15:45 11/12/16 15:44 10/17/16 21:12 0.5 MG Amitriptyline HCl (Elavil Tab) 75 mg HS PO 10/13/16 21:00 11/12/16 20:59 10/18/16 20:39 75 MG Aspirin (Ecotrin Tab) 81 mg QAM PO 10/14/16 08:00 11/13/16 07:59 10/19/16 08:26 81 MG Carvedilol (Coreg Tab) 6.25 mg BID PO 10/13/16 20:00 11/12/16 19:59 10/19/16 08:26 6.25 MG Citalopram Hydrobromide (celeXA TAB) 20 mg DAILY PO 10/14/16 08:00 11/13/16 07:59 10/19/16 08:26 20 MG Ferrous Sulfate (Feosol Tab) 325 mg BID PO 10/13/16 20:00 11/12/16 19:59 10/19/16 08:26 325 MG Fish Oil ([place]-3 (Purified Fish Oil) Cap) 4 gm DAILY PO 10/14/16 08:00 11/13/16 07:59 10/19/16 08:26 4 GM Oxycodone HCl (Oxycontin Tab) 60 mg Q12 PO 10/13/16 21:00 10/27/16 20:59 10/19/16 08:32 60 MG Oxycodone HCl (Roxicodone Immediate Rel Tab) 5 mg Q4H PRN PO 10/13/16 15:45 10/27/16 15:44 10/18/16 22:07 5 MG Trazodone HCl (Desyrel Tab) 50 mg HS PO 10/13/16 21:00 11/12/16 20:59 10/18/16 20:38 50 MG Calcium Carbonate (oS-Zi 500 TAB) 1,250 mg DAILY PO 10/14/16 08:00 11/13/16 07:59 10/19/16 08:27 1,250 MG Daptomycin 1 ea 1 ea UD N/A 10/13/16 16:26 11/12/16 16:25 Daptomycin/Sodium Chloride (Cubicin IV/Nss 50ml) 55.5 ml @ 120 mls/hr DAILY@1700 IV 10/13/16 17:00 10/23/16 16:59 10/18/16 16:37 120 MLS/HR Collagenase 1 appln 1 appln DAILY EXT 10/15/16 08:00 11/14/16 07:59 Ampicillin Sodium/ Sulbactam Sodium/ Sodium Chloride (Unasyn Inj/Nss 100ml) 104 ml @ 200 mls/hr Q6H IV 10/17/16 16:00 10/27/16 15:59 10/19/16 10:38 200 MLS/HR Objective Vital Signs Date Time Temp Pulse Resp B/P Pulse Ox O2 Delivery O2 Flow Rate FiO2 10/19/16 08:30 93 Room Air 10/19/16 07:49 36.6 66 16 158/80 93 Room Air 10/19/16 00:00 Room Air 10/18/16 23:39 37.0 69 16 150/74 93 Room Air 10/18/16 20:00 Room Air 10/18/16 20:00 36.7 73 19 165/79 93 Room Air 10/18/16 16:00 Room Air 10/18/16 15:27 36.8 75 16 154/75 93 Room Air Physical Exam General Appearance: WD/WN, no apparent distress Eyes: normal inspection, sclerae normal ENT: hearing grossly normal Neck: supple, trachea midline Respiratory/Chest: no respiratory distress, no accessory muscle use Cardiovascular: regular rate, rhythm Extremities: + pertinent finding (irrigating wound vac on left heel) Neurologic/Psychiatric: alert, normal mood/affect Skin: warm/dry, no rash, + pertinent finding (mild drainage from the medial proximal left lower extremity ) Laboratory Results Item Value Date Time Blood Culture - Final Complete 10/13/16 1540 Blood NO GROWTH Blood Culture - Final Complete 10/13/16 1530 Blood NO GROWTH Gram Stain - Final Complete 10/13/16 0000 Ulcer Foot Left Gram Stain - Final Complete 10/13/16 0000 Ulcer Leg Lower Left Gram Stain - Final Complete 10/13/16 0000 Skin Ankle Left Last 24 Hours Test 10/19/16 05:21 White Blood Count 4.90 K/uL Red Blood Count 3.73 M/uL Hemoglobin 11.2 g/dL Hematocrit 33.9 % Mean Corpuscular Volume 90.9 fL Mean Corpuscular Hemoglobin 30.0 pg Mean Corpuscular Hemoglobin Concent 33.0 g/dl RDW Standard Deviation 46.9 fL RDW Coefficient of Variation 14.3 % Platelet Count 192 K/uL Mean Platelet Volume 9.5 fL Creatinine 0.69 mg/dl Est Creatinine Clear Calc Drug Dose 77.3 ml/min Estimated GFR () 105.9 Estimated GFR (Non- 91.4 Total Creatine Kinase 38 U/L Assessment and Plan Patient with infected left lower extremity nonhealing wound. She is currently on IV Daptomycin and Unasyn. Pending further improvement, the patient will continue IV abx therapy. Will re-evaluate the patient's wound tomorrow when the irrigating wound vac is taken off and replaced. Likely will consider transition to PO abx if much improvement is seen. Plan: 1. Continue IV Daptomycin and IV Unasyn Case reviewed and agree with above assessment.
--- NOTE | 2016-10-19 17:19 | Progress Note ---
Internal Med Progress Note Date of Service: Oct 19, 2016. Provider Documentation: SUBJECTIVE: The patient was seen and examined Sad as her is in ER with syncope Denies any complaints Getting PHYSICAL THERAPY OBJECTIVE: Vital Signs-as noted below Exam: General-No distress at rest Eyes-Normal ENT-Normal Neck-Supple Lungs-Clear to auscultate bilaterally Heart-Regular Abdomen-Benign,no masses,bowel sound present Extremities-No edema Left heel wound is seen today About 4-5 cm sq and 1 cm deep Nice granulation tissue No Pus Neuro-AAOx3 Lab data as noted below. ASSESSMENT & PLAN: NONHEALING LEFT LOWER EXTREMITY WOUND S/P SKIN GRAFT WITH SURROUNDING CELLULITIS - H/O MRSA Wound culture is growing MRSA as well Empirically treat with Daptomycin and Zosyn per ID Appreciate ID input Wound care nurse and physician consult placed for further input Doppler US no DVT Ankle brachial index has pvd Left heel wound is seen today About 4-5 cm sq and 1 cm deep Nice granulation tissue Likely to satrt Oral antibiotic from tomorrow and discharge HTN On Coreg BID Slightly on the upper side today HLD Holding statin while on daptomycin PAD On Aspirin DEPRESSION On Amitriptyline, Trazodone, Xanax, Celexa No acute issue H/O LYMPHOSARCOMA Stable per patient CHRONIC PAIN SYNDROME On home pain regimen Bowel regimen ordered DVT PROPHYLAXIS: Sq Lovenox CODE STATUS: FULL CODE DISPOSITION To be determined Vital Signs: Date Time Temp Pulse Resp B/P Pulse Ox O2 Delivery O2 Flow Rate FiO2 10/19/16 15:57 36.9 68 18 145/77 95 Room Air 10/19/16 15:28 Room Air 10/19/16 08:30 93 Room Air 10/19/16 07:49 36.6 66 16 158/80 93 Room Air 10/19/16 00:00 Room Air 10/18/16 23:39 37.0 69 16 150/74 93 Room Air 10/18/16 20:00 Room Air 10/18/16 20:00 36.7 73 19 165/79 93 Room Air Lab Results: Results Past 24 Hours Test 10/19/16 05:21 Range/Units White Blood Count 4.90 4.8-10.8 K/uL Red Blood Count 3.73 4.2-5.4 M/uL Hemoglobin 11.2 12.0-16.0 g/dL Hematocrit 33.9 37-47 % Mean Corpuscular Volume 90.9 80-100 fL Mean Corpuscular Hemoglobin 30.0 25-34 pg Mean Corpuscular Hemoglobin Concent 33.0 32-36 g/dl RDW Standard Deviation 46.9 36.4-46.3 fL RDW Coefficient of Variation 14.3 11.5-14.5 % Platelet Count 192 130-400 K/uL Mean Platelet Volume 9.5 7.4-10.4 fL Creatinine 0.69 0.60-1.20 mg/dl Est Creatinine Clear Calc Drug Dose 77.3 ml/min Estimated GFR () 105.9 Estimated GFR (Non- 91.4 Total Creatine Kinase 38 26-192 U/L
[2016-10-19] MEDS: DAPTOmycin IV 275 MG in SODIUM CHLORIDE 0.9% 50ML 50 ML IV SCH (17:20)
[2016-10-19] MEDS: TRAZODONE HCL 50 MG TAB PO SCH (21:45)
[2016-10-19] MEDS: AMITRIPTYLINE HCL 25 MG TAB PO SCH (21:46)
[2016-10-19] MEDS: ENOXAPARIN 40 MG/0.4 ML SYR SQ SCH (21:46)
[2016-10-19] MEDS: ALPRAZOLAM 0.5 MG TAB PO PRN (21:47)
[2016-10-20 00:32] VITALS: BP 158/82; PULSE 71; TEMP 36.9; O2SAT 93
[2016-10-20] MEDS: AMPICILLIN/SULBACTAM SOD INJ 1,500 MG in SODIUM CHLORIDE 0.9% 100ML 100 ML IV SCH ×2 (04:59→10:14)
[2016-10-20 07:24] VITALS: BP 159/76; PULSE 67; TEMP 36.6; O2SAT 92
[2016-10-20 07:45] VITALS: O2SAT 92
[2016-10-20] MEDS: COLLAGENASE OINT 30 GM TUBE EXT SCH (08:42)
[2016-10-20] MEDS: CITALOPRAM 20 MG TAB PO SCH (08:43)
[2016-10-20] MEDS: CARVEDILOL 6.25 MG TAB PO SCH (08:44)
[2016-10-20] MEDS: ASPIRIN 81 MG ECTAB PO SCH (08:45)
[2016-10-20] MEDS: FERROUS SULFATE 325 MG TAB PO SCH (08:46)
[2016-10-20] MEDS: CALCIUM CARBONATE 1250MG TAB PO SCH (08:47)
[2016-10-20] MEDS: OXYCODONE HCL 20 MG TABCR (OXYCONTIN) PO SCH (08:48)
[2016-10-20] MEDS: OMEGA-3 (PURIFIED FISH OIL) 1 GM CAP PO SCH (09:38)
[2016-10-20 11:04] VITALS: BP 164/79; PULSE 71; TEMP 36.5; O2SAT 94
--- NOTE | 2016-10-20 11:46 | Infectious Disease Progress Nt ---
Progress Note Date of Service Oct 20, 2016. Subjective Pt evaluation today including: conversation w/ patient, physical exam, chart review, lab review, review of studies, review of inpatient medication list No new labs this morning. No new micro or imaging. Patient is feeling well today. No N/V/D. She has not had continued pain in the left lower extremity today. I spoke to Tatiana, the wound care nurse and viewed the patient's wounds today with her. She stated that the patient may no longer require wound vac pending evaluation by Dr. Sutton this morning. She continues on IV Unasyn and Daptomycin. All Other Systems: Reviewed and Negative Medications Current Inpatient Medications Medications (Trade) Dose Ordered Sig/Connor Route Start Time Stop Time Status Last Admin Dose Admin Enoxaparin Sodium (Lovenox Inj) 40 mg Q24H SQ 10/13/16 20:00 11/12/16 19:59 10/19/16 21:46 40 MG Acetaminophen (Tylenol Tab) 650 mg Q4H PRN PO 10/13/16 15:30 11/12/16 15:29 Al Hydrox/Mg Hydrox/Simethicone (Maalox Max Susp) 15 ml Q4H PRN PO 10/13/16 15:30 11/12/16 15:29 Magnesium Hydroxide (Milk Of Magnesia Susp) 30 ml Q6H PRN PO 10/13/16 15:30 11/12/16 15:29 Polyethylene (Miralax Powder Packet) 17 gm DAILY PRN PO 10/13/16 15:30 11/12/16 15:29 Ondansetron HCl (Zofran Inj) 4 mg Q6H PRN IV 10/13/16 15:30 11/12/16 15:29 Alprazolam (Xanax Tab) 0.5 mg TID PRN PO 10/13/16 15:45 11/12/16 15:44 10/19/16 21:47 0.5 MG Amitriptyline HCl (Elavil Tab) 75 mg HS PO 10/13/16 21:00 11/12/16 20:59 10/19/16 21:46 75 MG Aspirin (Ecotrin Tab) 81 mg QAM PO 10/14/16 08:00 11/13/16 07:59 10/20/16 08:45 81 MG Carvedilol (Coreg Tab) 6.25 mg BID PO 10/13/16 20:00 11/12/16 19:59 10/20/16 08:44 6.25 MG Citalopram Hydrobromide (celeXA TAB) 20 mg DAILY PO 10/14/16 08:00 11/13/16 07:59 10/20/16 08:43 20 MG Ferrous Sulfate (Feosol Tab) 325 mg BID PO 10/13/16 20:00 11/12/16 19:59 10/20/16 08:46 325 MG Fish Oil ([place]-3 (Purified Fish Oil) Cap) 4 gm DAILY PO 10/14/16 08:00 11/13/16 07:59 10/20/16 09:38 4 GM Oxycodone HCl (Oxycontin Tab) 60 mg Q12 PO 10/13/16 21:00 10/27/16 20:59 10/20/16 08:48 60 MG Oxycodone HCl (Roxicodone Immediate Rel Tab) 5 mg Q4H PRN PO 10/13/16 15:45 10/27/16 15:44 10/19/16 16:13 5 MG Trazodone HCl (Desyrel Tab) 50 mg HS PO 10/13/16 21:00 11/12/16 20:59 10/19/16 21:45 50 MG Calcium Carbonate (oS-Zi 500 TAB) 1,250 mg DAILY PO 10/14/16 08:00 11/13/16 07:59 10/20/16 08:47 1,250 MG Daptomycin 1 ea 1 ea UD N/A 10/13/16 16:26 11/12/16 16:25 Daptomycin/Sodium Chloride (Cubicin IV/Nss 50ml) 55.5 ml @ 120 mls/hr DAILY@1700 IV 10/13/16 17:00 10/23/16 16:59 10/19/16 17:20 120 MLS/HR Collagenase 1 appln 1 appln DAILY EXT 10/15/16 08:00 11/14/16 07:59 Ampicillin Sodium/ Sulbactam Sodium/ Sodium Chloride (Unasyn Inj/Nss 100ml) 104 ml @ 200 mls/hr Q6H IV 10/17/16 16:00 10/27/16 15:59 10/20/16 10:14 200 MLS/HR Objective Vital Signs Date Time Temp Pulse Resp B/P Pulse Ox O2 Delivery O2 Flow Rate FiO2 10/20/16 11:04 36.5 71 16 164/79 94 Room Air 10/20/16 09:50 Room Air 10/20/16 07:45 92 Room Air 10/20/16 07:24 36.6 67 18 159/76 92 Room Air 10/20/16 00:32 36.9 71 16 158/82 93 10/20/16 00:18 Room Air 10/19/16 21:18 Room Air 10/19/16 15:57 36.9 68 18 145/77 95 Room Air 10/19/16 15:28 Room Air Physical Exam General Appearance: WD/WN, no apparent distress Eyes: normal inspection, sclerae normal ENT: hearing grossly normal Neck: supple, trachea midline Respiratory/Chest: no respiratory distress, no accessory muscle use Cardiovascular: regular rate, rhythm Extremities: + pertinent finding (Trace edema of the left lower extremity) Neurologic/Psychiatric: alert, normal mood/affect Skin: warm/dry, no rash, + pertinent finding (Very mild erythema of the left anterior tibial surface. Continued macerated appearance of the left heel, but much improved from admission. Mild drainage noted from wounds on left medial lower extremity.) Assessment and Plan Patient with infected left lower extremity nonhealing wound. She is currently on IV Daptomycin and Unasyn. Will transition to PO Bactrim and Augmentin. She likely will need at least 2 more weeks of antibiotic therapy, but with her history of slow heeling may need extension pending improvement. She will need wound care follow up and ID follow up, ideally during her wound care visits. Thank you. Plan: 1. D/C IV abx 2. Transition to PO Augmentin and Bactrim 3. Wound care follow up and ID follow up (ideally at [facility]) Case reviewed and agree with above assessment.
[2016-10-20 12:36] VITALS: BP 164/79; PULSE 71; TEMP 36.5; O2SAT 94
[2016-10-20] MEDS ORDERED: SULFAMETHOXAZOLE/TRIMETHOPRIM DS 800/160MG TAB PO SCH (13:00)
--- NOTE | 2016-10-20 14:11 | Progress Note ---
Internal Med Progress Note Date of Service: Oct 20, 2016. Provider Documentation: SUBJECTIVE: The patient was seen and examined Denies any complaints Getting PHYSICAL THERAPY Wants to go home today OBJECTIVE: Vital Signs-as noted below Exam: General-No distress at rest Eyes-Normal ENT-Normal Neck-Supple Lungs-Clear to auscultate bilaterally Heart-Regular Abdomen-Benign,no masses,bowel sound present Extremities-No edema Left heel wound is seen today About 4-5 cm sq and 1 cm deep Nice granulation tissue No Pus-much improved Neuro-AAOx3 Lab data as noted below. ASSESSMENT & PLAN: NONHEALING LEFT LOWER EXTREMITY WOUND S/P SKIN GRAFT WITH SURROUNDING CELLULITIS - H/O MRSA Wound culture is growing MRSA as well Empirically treat with Daptomycin and Zosyn per ID Appreciate ID input Wound care nurse and physician consult placed for further input Doppler US no DVT Ankle brachial index has pvd Left heel wound is seen today About 4-5 cm sq and 1 cm deep Nice granulation tissue Likely to start Oral antibiotic from tomorrow and discharge Final Wound Culture::SURFACE WOUND CULTURE Final 10/15/16-1243 Organism 1 STAPHYLOCOCCUS AUREUS QUANITY MODERATE SENS NO SENSITIVITY TO FOLLOW Organism 2 PASTEURELLA MULTOCIDA QUANITY MANY SENS NO SENSITIVITY TO FOLLOW Organism 3 COAG NEG STAPHYLOCOCCUS QUANITY MODERATE SENS NO SENSITIVITY TO FOLLOW Started on :: Oral Augmentin and Bactrim HTN On Coreg BID Slightly on the upper side today HLD Holding statin while on daptomycin PAD On Aspirin DEPRESSION On Amitriptyline, Trazodone, Xanax, Celexa No acute issue H/O LYMPHOSARCOMA Stable per patient CHRONIC PAIN SYNDROME On home pain regimen Bowel regimen ordered DVT PROPHYLAXIS: Sq Lovenox CODE STATUS: FULL CODE DISPOSITION Discharge home today Vital Signs: Date Time Temp Pulse Resp B/P Pulse Ox O2 Delivery O2 Flow Rate FiO2 10/20/16 12:36 36.5 71 16 94 Room Air 10/20/16 11:04 36.5 71 16 164/79 94 Room Air 10/20/16 09:50 Room Air 10/20/16 07:45 92 Room Air 10/20/16 07:24 36.6 67 18 159/76 92 Room Air 10/20/16 00:32 36.9 71 16 158/82 93 10/20/16 00:18 Room Air 10/19/16 21:18 Room Air
[2016-10-20] MEDS ORDERED: LCTX PO (14:14)
[2016-10-20] MEDS ORDERED: SULF-183 PO (14:14)
[2016-10-20] MEDS ORDERED: AMOX1TAB43 PO (14:14)
--- NOTE | 2016-10-20 14:16 | Discharge Instructions ---
Discharge Instructions Admission Reason for Admission: Cellulitis Of Left Heel Discharge Discharge Diagnosis / Problem: Left leg cellulitis/wound Discharge Goals Goal(s): Prevent Disease Progression Activity Recommendations Activity Limitations: resume your previous activity . Instructions / Follow-Up Instructions / Follow-Up Dr Jeffery on 10/28/2016 at 1:30PM Current Hospital Diet Patient's current hospital diet: Regular Diet Discharge Diet Recommended Diet: Regular Diet Pending Studies Studies pending at discharge: no Medical Emergencies . Who to Call and When: Medical Emergencies: If at any time you feel your situation is an emergency, please call 911 immediately. . Non-Emergent Contact Non-Emergency issues call your: Primary Care Provider . Past History Medical & Surgical History: (1) Sarcoma (2) Dyslipidemia (3) Depression (4) Closed fracture of femur (5) infected leg ulcers (6) PAD (peripheral artery disease) (7) Cellulitis of left lower extremity (8) S/P lumbar spinal fusion (9) S/P tonsillectomy and adenoidectomy (10) S/P section (11) S/p left ankle surgery (12) S/p left hip surgery . "Provider Documentation" section prepared by Berna Gloria. VTE Core Measure Inpt VTE Proph given/why not?: Enoxaparin (Lovenox)SQ
[2016-10-20] MEDS ORDERED: AMOXICILLIN/CLAVULANATE TAB 875 MG TAB PO SCH (17:00)
--- NOTE | 2016-10-21 11:40 | Discharge Summary ---
Discharge Summary Admission Date: Oct 13, 2016 at 14:50 Discharge Date: Oct 20, 2016 Discharge Disposition: Home with services Principal Diagnosis: Left foot wound Secondary Diagnoses/Problems: Please see H&P Consultations: ID and Wound care provider Medication Reconciliation New Medications: Lactobacillus Acidophilus (Lactinex) Tab 2 TAB PO BID, #40 TAB Amoxicillin & Pot Clavulanate (Amoxicillin/Clavulanate P) 1 Tab Tab 875 MG PO BIDM for 10 Days, #20 TAB Sulfamethoxazole-Trimethoprim (Smz-Tmp Ds) 1 Tab Tab 1 TAB PO Q12 for 10 Days, #20 TAB Continued Medications: Alprazolam (Xanax) 0.5 Mg Tab 0.5 MG PO TID PRN for ANXIETY, TAB Amitriptyline Hcl (Elavil) 25 Mg Tab 3 TAB PO HS for 30 Days, #30 TAB 5 Refills Aspirin (Aspirin Ec) 81 Mg Tab 81 MG PO QAM Atorvastatin (Lipitor) 20 Mg Tab 20 MG PO QPM, TAB Calcium Carbonate (Calcium 600) 600 Mg Tab 600 MG PO DAILY Carvedilol (Coreg) 6.25 Mg Tab 1 TAB PO BID for 90 Days, #180 TAB 1 Refill Citalopram Hydrobromide (Citalopram Hydrobromide) 20 Mg Tab 20 MG PO DAILY Ferrous Sulfate (Ferrous Sulfate) 325 Mg Tab 325 MG PO BID Fish Oil ([place]-3) 1 Ea Cap 4 CAP PO DAILY, CAP Oxycodone Hcl (Oxycontin) 60 Mg Tab 60 MG PO Q12, TAB Oxycodone Ir (Roxicodone Ir) 5 Mg Tab 5 MG PO Q4H PRN for Pain, TAB Trazodone Hcl (Trazodone) 50 Mg Tab 50 MG PO HS, TAB Admission Information HPI (per Admitting provider): Patient seen and examined. 66 year old female with PMHx of PAD, HTN, HLD, and nonhealing surgical wound/skin graft site presents from wound care and infectious disease as a direct admission for wound infection. Patient has had a complicated course following a tendon transfer for dropped foot in September 2015 since then she has had a nonhealing wound with osteomyelitis as well. In July 2016 she had a skin graft placed to the area by Dr. Anderson. Since then she has been doing fairly well how ever over the last several days she has developed erythema and edema and notes a foul smelling odor. She was seen by wound care this morning and part of her skin graft is not taking well and the area appears to be possibly infected. The wound was debrided and dressed and she was instructed to return to the wound clinic in the afternoon when ID would be there. This afternoon she was seen by Dr. Timmons who suggested admission for IV antibiotics. Patient reports she has minimal feeling in her LLE. She reports feeling generally at baseline denying fevers, chills, URI symptoms, chest pain, SOB, nausea, vomiting, diarrhea, dysuria, calf pain. She will be admitted for further workup and treatment. 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 Surgical Problems: (1) S/P section Status: Chronic (2) S/p left ankle surgery Permanent Comment: 09/2015- Left Ankle Open Achilles Tendon Lengthening, Open Flexor Hallucis Longus and Flexor Digitorum Longus Lengthening, Posterior Tibial Tendon Transfer to cuboid, Posterior Ankle Capsulotomy Status: Chronic (3) S/p left hip surgery Status: Chronic (4) S/P lumbar spinal fusion Status: Chronic (5) s/p resection sarcoma left thigh Permanent Comment: [facility] 1990 Status: Chronic (6) S/P tonsillectomy and adenoidectomy Status: Chronic Family History DVT FATHER FH: CAD (coronary artery disease) MOTHER ([place] age 70) FH: pulmonary embolism SISTER Social History Smoking Status: Former Smoker Alcohol Use: none Drug Use: none Marital Status: Housing status: lives with family Occupational Status: retired Immunizations History of Influenza Vaccine: Yes Influenza Vaccine Date: Apr 19, 2013 History of Tetanus Vaccine?: Unknown History of Pneumococcal: No History of Hepatitis B Vaccine: Unknown Multi-Drug Resistant Organisms History of MDRO: Yes Type of MDRO: MRSA Allergies Coded Allergies: Vancomycin (Verified Adverse Reaction, Severe, WORSENING RENAL FUNCTION, 09/01/16) Patient prescribed both vancomycin and pip/tazo therapy. Patient's vancomycin trough level for the 800mg IV q12h dosing came back subtherapeutic at 9.7mcg/ml. Vancomycin dose was changed to 1400mg IV q12h to provide an increase in trough and get a therapeutic level. However, trough level returned back on this newer dose as 19.9mcg/ml. Deemed dose to having caused a higher goal trough and determined that a lower dose of 1000mg IV q12h was needed to lower trough into goal range. However, patient's renal function had worsened on 08/02 from 0.46mg/dl for SCr on 08/01 to a SCr of 1.8mcg/ml. This could have been due to the vancomycin dosing or the combination of the patient being on vancomycin and pip/zosyn. At this point ID recommended to switch patient to daptomycin and continue on the piperacillin/tazobactam. Dr. Bagley was made aware of the situation. Renal function was to continue to be monitored as well as the vancomycin levels. Cetirizine (Verified Adverse Reaction, Unknown, BOWEL CRAMPS, 08/26/16) Home Medications Scheduled Amitriptyline Hcl (Elavil), 3 TAB PO HS Aspirin (Aspirin Ec), 81 MG PO QAM Atorvastatin (Lipitor), 20 MG PO QPM Calcium Carbonate (Calcium 600), 600 MG PO DAILY Carvedilol (Coreg), 1 TAB PO BID Citalopram Hydrobromide (Citalopram Hydrobromide), 20 MG PO DAILY Ferrous Sulfate (Ferrous Sulfate), 325 MG PO BID Fish Oil ([place]-3), 4 CAP PO DAILY Oxycodone Hcl (Oxycontin), 60 MG PO Q12 Trazodone Hcl (Trazodone), 50 MG PO HS Scheduled PRN Alprazolam (Xanax), 0.5 MG PO TID PRN for ANXIETY Oxycodone Ir (Roxicodone Ir), 5 MG PO Q4H PRN for Pain Review of Systems See above for pertinent positives & negatives. A total of 10 systems reviewed and were otherwise negative. Physical Ex - H&P Physical Exam Vital Signs Date Time Temp Pulse Resp B/P Pulse Ox O2 Delivery O2 Flow Rate FiO2 10/13/16 15:00 36.5 68 18 175/75 98 Room Air General Appearance: + pertinent finding (Very pleasant WD/WN 66 year old female sitting on edge of bed in NAD ) Head: normocephalic, atraumatic Eyes: PERRL, EOMI, sclerae normal ENT: hearing grossly normal, pharynx normal Neck: supple, no JVD, trachea midline Respiratory/Chest: chest non-tender, lungs clear, normal breath sounds, no respiratory distress, no accessory muscle use Cardiovascular: regular rate, rhythm, no gallop, no JVD, no murmur, normal peripheral pulses Abdomen/GI: normal bowel sounds, non tender, soft Back: normal inspection, no muscle spasm Extremities/Musculoskelatal: + pertinent finding (Left foot with dressing I/C/D , difficult to appreciate pulses, +1-2 pitting edema left foot, erythema extending up to the calf ) Neurologic/Psych: alert, oriented x 3, + pertinent finding (decreased motor and sensation LLE ) Skin: normal color, warm/dry, no rash, + pertinent finding (erythema edema to LLE with dressing I/C/D, Right thigh skin graft site well healing ) Lymphatic: no adenopathy Diagnostics - H&P Diagnostics Laboratory Results Results Past 24 Hours Test 10/13/16 15:34 10/13/16 15:36 Range/Units Microbiology Results 10/13/16 Blood Culture, Kathia Batch Pending 10/13/16 Blood Culture, Kathia Batch Pending Impression - H&P Impression Assessment and Plan 66 year old female sent as direct admission from wound care for likely infection to recent skin graft NONHEALING LEFT LOWER EXTREMITY WOUND S/P SKIN GRAFT WITH SURROUNDING CELLULITIS - H/O MRSA -Admit to med/surg -Nontoxic in appears, afebrile, VS stable -CBC, PRP pending -Wound cultures, blood cultures obtain -Empirically treat with Daptomycin and Zosyn per ID -Infectious disease consult placed for further input -Wound care nurse and physician consult placed for further input -Doppler US to r/o DVT -BELINDA to obtain pedal pulses -CBC, PRP, Mg daily -contact precautions HTN -175/75 on arrival -repeat once patient has settle in -continue Coreg BID HLD -hold statin while on daptomycin PAD -continue Aspirin -Ankle brachial index pending DEPRESSION -continue Amitriptyline, Trazodone, Xanax, Celexa H/O LYMPHOSARCOMA -stable per patient CHRONIC PAIN SYNDROME -continue home pain regimen -bowel regimen ordered DVT PROPHYLAXIS: Sq Lovenox CODE STATUS: FULL CODE DISPO:In my clinical judgment this beneficiary meets acute admission criteria, established by [facility], that includes being hospitalized through two midnights. Patient seen in collaboration with Dr. Martínez Attending Note: Patient is a 66 yr old female with PMH of PAD, HTN, HLD,and left LE nonhealing surgical wound S/P skin graft, h/o osteomyelitis presents with history of redness, swelling, drainage from the wound since last few days. Patient is a direct admit on recommendations from for IV antibiotics. Physical Exam: Vital signs as noted above General; Moderately built and nourished HEENT: NC/AT, EOMI, PERRLA Neck: Supple, No JVD CVS: S1, S2, no murmur Resp: NVBS, CTA Abd: soft, non tender, BS present DIRECTOR OF ARCHITECTURE: AAO X3, Left LE numbness (chronic), no other gross deficits EXT: Left LE in bandage, +erythema, swelling, wound Skin: Warm Assessment and Plan: Left LE non healing wound/Cellulitis: H/O LLE dropped foot S/P fall Labs pending currently Start on IV Dapto and Zosyn per recommendations from ID Blood/Wound cultures Consult ID Check arterial and venous duplex Wound consult Agrre with assessment and plan of Megan Black PA-C as above VTE Prophylaxis VTE Risk Assessment Done? Y/N: Yes Risk Level: Moderate Physical Exam (per Admitting): General Appearance: + pertinent finding (Very pleasant WD/WN 66 year old female sitting on edge of bed in NAD ) Head: normocephalic, atraumatic Eyes: PERRL, EOMI, sclerae normal ENT: hearing grossly normal, pharynx normal Neck: supple, no JVD, trachea midline Respiratory/Chest: chest non-tender, lungs clear, normal breath sounds, no respiratory distress, no accessory muscle use Cardiovascular: regular rate, rhythm, no gallop, no JVD, no murmur, normal peripheral pulses Abdomen/GI: normal bowel sounds, non tender, soft Back: normal inspection, no muscle spasm Extremities/Musculoskelatal: + pertinent finding (Left foot with dressing I/ C/D, difficult to appreciate pulses, +1-2 pitting edema left foot, erythema extending up to the calf ) Neurologic/Psych: alert, oriented x 3, + pertinent finding (decreased motor and sensation LLE ) Skin: normal color, warm/dry, no rash, + pertinent finding (erythema edema to LLE with dressing I/C/D, Right thigh skin graft site well healing ) Lymphatic: no adenopathy Hospital Course NONHEALING LEFT LOWER EXTREMITY WOUND S/P SKIN GRAFT WITH SURROUNDING CELLULITIS - H/O MRSA Wound culture is growing MRSA as well Empirically treat with Daptomycin and Zosyn per ID Appreciate ID input Wound care nurse and physician consult placed for further input Doppler US no DVT Ankle brachial index has pvd Left heel wound is seen today About 4-5 cm sq and 1 cm deep Nice granulation tissue Likely to start Oral antibiotic from tomorrow and discharge Final Wound Culture::SURFACE WOUND CULTURE Final 10/15/16-1243 Organism 1 STAPHYLOCOCCUS AUREUS QUANITY MODERATE SENS NO SENSITIVITY TO FOLLOW Organism 2 PASTEURELLA MULTOCIDA QUANITY MANY SENS NO SENSITIVITY TO FOLLOW Organism 3 COAG NEG STAPHYLOCOCCUS QUANITY MODERATE SENS NO SENSITIVITY TO FOLLOW Started on :: Oral Augmentin and Bactrim HTN On Coreg BID Slightly on the upper side today HLD Holding statin while on daptomycin PAD On Aspirin DEPRESSION On Amitriptyline, Trazodone, Xanax, Celexa No acute issue H/O LYMPHOSARCOMA Stable per patient CHRONIC PAIN SYNDROME On home pain regimen Bowel regimen ordered DVT PROPHYLAXIS: Sq Lovenox CODE STATUS: FULL CODE DISPOSITION Discharge home today Total time spent on discharge = 35 minutes This includes examination of the patient, discharge planning, medication reconciliation, and communication with other providers. Discharge Instructions Admission Reason for Admission: Cellulitis Of Left Heel Discharge Discharge Diagnosis / Problem: Left leg cellulitis/wound Discharge Goals Goal(s): Prevent Disease Progression Activity Recommendations Activity Limitations: resume your previous activity . Instructions / Follow-Up Instructions / Follow-Up Dr Jeffery on 10/28/2016 at 1:30PM Current Hospital Diet Patient's current hospital diet: Regular Diet Discharge Diet Recommended Diet: Regular Diet Pending Studies Studies pending at discharge: no Medical Emergencies . Who to Call and When: Medical Emergencies: If at any time you feel your situation is an emergency, please call 911 immediately. . Non-Emergent Contact Non-Emergency issues call your: Primary Care Provider . Past History Medical & Surgical History: (1) Sarcoma (2) Dyslipidemia (3) Depression (4) Closed fracture of femur (5) infected leg ulcers (6) PAD (peripheral artery disease) (7) Cellulitis of left lower extremity (8) S/P lumbar spinal fusion (9) S/P tonsillectomy and adenoidectomy (10) S/P section (11) S/p left ankle surgery (12) S/p left hip surgery . "Provider Documentation" section prepared by Berna Gloria. VTE Core Measure Inpt VTE Proph given/why not?: Enoxaparin (Lovenox)SQ <Electronically signed by Berna Gloria M.D.> Additional Copies To Rico Jeffery D.O.
[2016-11-10] MEDS ORDERED: AMOX875T PO (14:17)
[2016-11-10] MEDS ORDERED: SULF800T23 PO (14:17)
[2017-01-23] MEDS ORDERED: CARV6.252 PO (08:52)
[2017-01-23] MEDS ORDERED: OXYC60TA8 PO (10:52)
[2017-01-23] MEDS ORDERED: CITA20TA4 PO (11:44)
[2017-01-23] MEDS ORDERED: OMEG10007 PO (13:54)
[2017-01-23] MEDS ORDERED: ASPI81TA28 PO (13:54)
[2017-01-23] MEDS ORDERED: ATOR-54 PO (14:05)
[2017-01-23] MEDS ORDERED: FRRS300 PO (14:05)
[2017-01-23] MEDS ORDERED: AMIT25TA9 PO (15:44)
[2017-01-23] MEDS ORDERED: ALPR-411 PO (16:37)
[2017-01-23] MEDS ORDERED: OXYC1TAB3 PO (16:59)
[2017-01-23] MEDS ORDERED: CALC600T PO (18:37)
[2017-01-23] MEDS ORDERED: TRAZ50TA35 PO (18:37)
[2017-02-09] MEDS ORDERED: SULF-183 PO (10:24)
[2017-02-09] MEDS ORDERED: OXYC1TAB3 PO (11:16)
[2017-02-09] MEDS ORDERED: OXYC60TA8 PO (11:16)
[2017-02-09] MEDS ORDERED: ALPR-411 PO (11:16)
[2017-02-09] MEDS ORDERED: TOBRAMYCIN IV (14:05)
[2017-02-13] MEDS ORDERED: MULT-506 PO (18:34)
[2017-02-13] MEDS ORDERED: zinc (18:34)
== END 2016-10-20 15:53 | disposition home health service (06) | DRG 580 ==
LOC: C.4E 14:50
PROVIDERS: ADMIT Internal Medicine; ATTEND Internal Medicine
PROC: 0JBP3ZZ Excision of Left Lower Leg Subcutaneous Tissue and Fascia, Percutaneous Approach (ICD-10-PCS; principal; 2016-10-13)
PROC: 0JBR3ZZ Excision of Left Foot Subcutaneous Tissue and Fascia, Percutaneous Approach (ICD-10-PCS; 2016-10-13)
DX: L03.116 Cellulitis of left lower limb (principal); L89.622 Pressure ulcer of left heel, stage 2; L97.929 Non-pressure chronic ulcer of unspecified part of left lower leg with unspecified severity; B95.62 Methicillin resistant Staphylococcus aureus infection as the cause of diseases classified elsewhere; I10 Essential (primary) hypertension; E78.5 Hyperlipidemia, unspecified; F32.9 Major depressive disorder, single episode, unspecified; G89.4 Chronic pain syndrome; I73.9 Peripheral vascular disease, unspecified; Z82.49 Family history of ischemic heart disease and other diseases of the circulatory system; Z84.89 Family history of other specified conditions; Z87.891 Personal history of nicotine dependence; Z79.82 Long term (current) use of aspirin; Z79.899 Other long term (current) drug therapy; S81.802A Unspecified open wound, left lower leg, initial encounter; X58.XXXA Exposure to other specified factors, initial encounter

== ENCOUNTER 2016-12-16 21:00 | Emergency (ER) | payer OTHER ==
[~2016-12-16] VITALS: Ht 162.6 cm; Wt 67.0 kg
[~2016-12-16 21:00] MED LIST changes: -CLOP1TAB15 PO; +LCTX PO
[2016-12-16 21:11] VITALS: Ht 162.6 cm; Wt 67.0 kg
[2016-12-16 22:15] LABS: BASO % 0.5 %; BASO ABS # 0.04 K/uL (0-0.2); COMPLETE YES; EOS % 5.4 %; HEMATOCRIT 36.6 % (37-47); IG% 0.3 %; LYMPH % 35.1 %; LYMPH ABS # 2.75 K/uL (1.2-3.4); MEAN CELL VOLUME 89.5 fL (80-100); MEAN CORPUSCULAR HEMOGLOBIN 30.3 pg (25-34); MEAN CORPUSCULAR HGB CONC 33.9 g/dl (32-36); MEAN PLATELET VOLUME 9.7 fL (7.4-10.4); MONO % 8.5 %; NEUT % 50.2 %; PLATELET COUNT 217 K/uL (130-400); RED BLOOD COUNT 4.09 M/uL (4.2-5.4); WHITE BLOOD COUNT 7.84 K/uL (4.8-10.8)
[2016-12-16 22:18] LABS: MANUAL MICROSCOPIC REQUIRED? NO; REVIEW REQ? NO; URINE APPEARANCE CLOUDY (CLEAR); URINE BILIRUBIN NEG (NEG); URINE COLOR DK YELLOW; URINE NITRITE NEG (NEG); URINE PH 5.5 (4.5-7.5); URINE SPECIFIC GRAVITY 1.019 (1.000-1.030); UROBILINOGEN NEG (NEG); ZZUR CULT IF INDIC CLEAN CATCH NO
[2016-12-16 22:25] LABS: PARTIAL THROMBOPLASTIN RATIO 1.1; PROTHROMBIN TIME (PATIENT) 10.2 SECONDS (9.0-12.0)
[2016-12-16 22:33] LABS: ALT/SGPT 23 U/L (12-78); BLOOD UREA NITROGEN 34 mg/dl (7-18); BUN/CREATININE RATIO 33.8 (10-20); CALCIUM 9.2 mg/dl (8.5-10.1); CARBON DIOXIDE 31 mmol/L (21-32); CHLORIDE 100 mmol/L (98-107); GLUCOSE 87 mg/dl (70-99); POTASSIUM 4.4 mmol/L (3.5-5.1); SODIUM 136 mmol/L (136-145)
[2016-12-16 22:36] LABS: ALKALINE PHOSPHATASE 123 U/L (45-117); AST/SGOT 19 U/L (15-37)
[2016-12-16] MEDS ORDERED: BACITRACIN OINT 15 GM TUBE EXT ONE (23:15)
[2016-12-17 00:37] VITALS: BP 130/52; PULSE 94; TEMP 37.3; O2SAT 95
--- NOTE | 2016-12-17 02:35 | EMERGENCY ROOM VISIT NOTE ---
History First contact with patient: 21:40 Chief Complaint: HEMATURIA Stated Complaint: BLEEDING FROM BLADDER Nursing Triage Summary: Patient had prolapsed bladder and noted blood blisters on outside of bladder. Unsure if urine bloody or just blood from little blood blisters on bladder History of Present Illness The patient is a 66 year old female who presents to the Emergency Room with complaints of blisters and bleeding from her bladder prolapse. No associated symptoms. This started today and is staying the same. The patient has found no relieving factors. She has not been seen for the prolapse yet. Appt is pending with Dr. Agarwal on 12/22. Pt denies LOC, headache, fevers, chills, diaphoresis, visual changes, neck pain, chest pain, breathing difficulties, nausea, vomiting, abdominal pain, back pain, melena, hematochezia, urinary symptoms, numbness, weakness, lymphadenopathy, rash, or other complaints. Review of Systems See HPI for pertinent positives and negatives. A total of ten systems were reviewed and were otherwise negative. Past Medical/Surgical History Medical Problems: (1) Anxiety (2) Benign hypertension (3) Cellulitis of left lower extremity (4) Closed fracture of femur (5) Depression (6) Dyslipidemia (7) Nonhealing surgical wound (8) PAD (peripheral artery disease) (9) PFO (patent foramen ovale) (10) Sarcoma Surgical Problems: (1) S/P section (2) S/p left ankle surgery (3) S/p left hip surgery (4) S/P lumbar spinal fusion (5) s/p resection sarcoma left thigh (6) S/P tonsillectomy and adenoidectomy Family History DVT FATHER FH: CAD (coronary artery disease) MOTHER ([place] age 70) FH: pulmonary embolism SISTER Social History Smoking Status: Former Smoker Alcohol Use: none Drug Use: none Marital Status: Housing Status: lives with family Occupation Status: retired Current/Historical Medications Scheduled Amitriptyline Hcl (Elavil), 3 TAB PO HS Amoxicillin & Pot Clavulanate (Augmentin 875-125 mg), 1 TAB PO BID Aspirin (Aspirin Ec), 81 MG PO QAM Atorvastatin (Lipitor), 20 MG PO QPM Calcium Carbonate (Calcium 600), 600 MG PO DAILY Carvedilol (Coreg), 1 TAB PO BID Citalopram Hydrobromide (Citalopram Hydrobromide), 20 MG PO DAILY Ferrous Sulfate (Ferrous Sulfate), 325 MG PO BID Fish Oil ([place]-3), 4 CAP PO DAILY Oxycodone Hcl (Oxycontin), 60 MG PO Q12 Sulfa/Trimethoprim (Bactrim Ds 800MG/160MG), 1 TAB PO BID Trazodone Hcl (Trazodone), 50 MG PO HS Scheduled PRN Alprazolam (Xanax), 0.5 MG PO TID PRN for ANXIETY Oxycodone Ir (Roxicodone Ir), 5 MG PO Q4H PRN for Pain Allergies Coded Allergies: Vancomycin (Verified Adverse Reaction, Severe, WORSENING RENAL FUNCTION, 09/01/16) Patient prescribed both vancomycin and pip/tazo therapy. Patient's vancomycin trough level for the 800mg IV q12h dosing came back subtherapeutic at 9.7mcg/ml. Vancomycin dose was changed to 1400mg IV q12h to provide an increase in trough and get a therapeutic level. However, trough level returned back on this newer dose as 19.9mcg/ml. Deemed dose to having caused a higher goal trough and determined that a lower dose of 1000mg IV q12h was needed to lower trough into goal range. However, patient's renal function had worsened on 08/02 from 0.46mg/dl for SCr on 08/01 to a SCr of 1.8mcg/ml. This could have been due to the vancomycin dosing or the combination of the patient being on vancomycin and pip/zosyn. At this point ID recommended to switch patient to daptomycin and continue on the piperacillin/tazobactam. Dr. Bagley was made aware of the situation. Renal function was to continue to be monitored as well as the vancomycin levels. Cetirizine (Verified Adverse Reaction, Unknown, BOWEL CRAMPS, 08/26/16) Physical Exam Vital Signs Date Time Temp Pulse Resp B/P Pulse Ox O2 Delivery O2 Flow Rate FiO2 12/17/16 00:37 37.3 94 16 130/52 95 12/17/16 00:20 94 16 130/52 95 Room Air 12/16/16 22:42 87 16 125/64 95 Room Air 12/16/16 22:28 85 12/16/16 21:11 37.3 92 18 128/75 92 Room Air Physical Exam GENERAL: Awake, alert, tired appearing, in no distress HENT: Normocephalic, atraumatic. Oropharynx unremarkable. EYES: Normal conjunctiva. Sclera non-icteric. NECK: Supple. No nuchal rigidity. FROM. No JVD. RESPIRATORY: Clear to auscultation. CARDIAC: Regular rate, normal rhythm. Extremities warm and well perfused. Pulses equal. ABDOMEN: Soft, non-distended. No tenderness to palpation. No rebound or guarding. No masses. : Normal labia. There is a moderate bladder prolapse with mucosal irritation and sloughing. Easily reducible. Non-tender. MUSCULOSKELETAL: Chest examination reveals no tenderness. The back is symmetrical on inspection without obvious abnormality. There is no CVA tenderness to palpation. No joint edema. LOWER EXTREMITIES: Calves are equal size bilaterally and non-tender. No edema. No discoloration. NEURO: Normal sensorium. No sensory or motor deficits noted. SKIN: No rash or jaundice noted. Medical Decision & Procedures Laboratory Results 12/16/16 22:00 Red Blood Count 4.09, Mean Corpuscular Volume 89.5, Mean Corpuscular Hemoglobin 30.3, Mean Corpuscular Hemoglobin Concent 33.9, Mean Platelet Volume 9.7, Neutrophils (%) (Auto) 50.2, Lymphocytes (%) (Auto) 35.1, Monocytes (%) (Auto) 8.5, Eosinophils (%) (Auto) 5.4, Basophils (%) (Auto) 0.5, Neutrophils # (Auto) 3.94, Lymphocytes # (Auto) 2.75, Monocytes # (Auto) 0.67, Eosinophils # (Auto) 0.42, Basophils # (Auto) 0.04 12/16/16 22:00 Test 12/16/16 22:00 White Blood Count 7.84 K/uL (4.8-10.8) Red Blood Count 4.09 M/uL (4.2-5.4) Hemoglobin 12.4 g/dL (12.0-16.0) Hematocrit 36.6 % (37-47) Mean Corpuscular Volume 89.5 fL (80-100) Mean Corpuscular Hemoglobin 30.3 pg (25-34) Mean Corpuscular Hemoglobin Concent 33.9 g/dl (32-36) Platelet Count 217 K/uL (130-400) Mean Platelet Volume 9.7 fL (7.4-10.4) Neutrophils (%) (Auto) 50.2 % Lymphocytes (%) (Auto) 35.1 % Monocytes (%) (Auto) 8.5 % Eosinophils (%) (Auto) 5.4 % Basophils (%) (Auto) 0.5 % Neutrophils # (Auto) 3.94 K/uL (1.4-6.5) Lymphocytes # (Auto) 2.75 K/uL (1.2-3.4) Monocytes # (Auto) 0.67 K/uL (0.11-0.59) Eosinophils # (Auto) 0.42 K/uL (0-0.5) Basophils # (Auto) 0.04 K/uL (0-0.2) RDW Standard Deviation 43.0 fL (36.4-46.3) RDW Coefficient of Variation 13.3 % (11.5-14.5) Immature Granulocyte % (Auto) 0.3 % Immature Granulocyte # (Auto) 0.02 K/uL (0.00-0.02) Prothrombin Time 10.2 SECONDS (9.0-12.0) Prothromb Time International Ratio 1.0 (0.9-1.1) Activated Partial Thromboplast Time 28.7 SECONDS (21.0-31.0) Partial Thromboplastin Ratio 1.1 Urine Color DK YELLOW Urine Appearance CLOUDY (CLEAR) Urine pH 5.5 (4.5-7.5) Urine Specific [place] 1.019 (1.000-1.030) Urine Protein TRACE (NEG) Urine Glucose (UA) NEG (NEG) Urine Ketones NEG (NEG) Urine Occult Blood 3+ (NEG) Urine Nitrite NEG (NEG) Urine Bilirubin NEG (NEG) Urine Urobilinogen NEG (NEG) Urine Leukocyte Esterase SMALL (NEG) Urine WBC (Auto) 1-5 /hpf (0-5) Urine RBC (Auto) >30 /hpf (0-4) Urine Hyaline Casts (Auto) 1-5 /lpf (0-5) Urine Epithelial Cells (Auto) 5-10 /lpf (0-5) Urine Bacteria (Auto) NEG (NEG) Anion Gap 5.0 mmol/L (3-11) Est Creatinine Clear Calc Drug Dose 52.8 ml/min Estimated GFR () 68.5 Estimated GFR (Non- 59.1 BUN/Creatinine Ratio 33.8 (10-20) Calcium Level 9.2 mg/dl (8.5-10.1) Total Bilirubin 0.2 mg/dl (0.2-1) Direct Bilirubin < 0.1 mg/dl (0-0.2) Aspartate Amino Transf (AST/SGOT) 19 U/L (15-37) Alanine Aminotransferase (ALT/SGPT) 23 U/L (12-78) Alkaline Phosphatase 123 U/L (45-117) Total Protein 8.1 gm/dl (6.4-8.2) Albumin 3.6 gm/dl (3.4-5.0) Lipase 108 U/L (73-393) Medications Administered Medications (Trade) Dose Ordered Sig/Connor Route Start Time Stop Time Status Last Admin Dose Admin Bacitracin (Bacitracin Oint) 1 appln NOW ONCE EXT 12/16/16 23:15 12/16/16 23:16 DC 12/16/16 23:44 1 APPLN Medical Decision Triage Nursing notes reviewed. The patient's presentation and history were concerning for bladder prolapse issues. Etiologies such as excoriation, cellulitis, abscess, dermatitis, as well as others were entertained. The patient was evaluated. She has a prolapse of the anterior wall of the vagina . I believe that the glucose had dried somewhat, cracked, and blood. This also was sticking to her undergarments and cause some excoriation. Her urinalysis was unremarkable. Blood work was unremarkable. I did consult with Dr. Squires of [facility]. She recommended Vaseline-based ointment or estrogen cream to assist in healing and moisturizing the area. As she has ulcerations a pessary would not be an option at the moment. The patient has a pending appointment in [address] Agarwal. The patient had her prolapse easily reduced. She was able to urinate here without difficulty. Bacitracin was applied to the area. The patient was instructed on care. She will maintain a Vaseline or bacitracin ointment to this area and will follow-up. If she has any urinary issues, signs of infection, or other problems she will come back to the emergency department. By the evaluation outlined above other emergent etiologies such as those listed in the differential, as well as others, were deemed relatively unlikely. The patient and were informed about the findings as listed above. All questions were answered and they were pleased with the treatment. Return instructions were outlined and the patient was discharged in stable condition. The patient was referred to [facility] for follow-up this week for a recheck of the current condition. The chart was completed utilizing [employer] Speech voice recognition software. Grammatical errors, random word insertions, pronoun errors, and incomplete sentences are an occasional consequence of this system due to software limitations, ambient noise, and hardware issues. Any formal questions or concerns about the content, text, or information contained within the body of this dictation should be directly addressed to the physician for clarification. Impression Primary Impression: Prolapse of vaginal wall with midline cystocele Departure Information Dispostion Home / Self-Care Referrals iRco Jeffery D.O. (PCP) Patient Instructions [facility]
[2017-01-23] MEDS ORDERED: CARV6.252 PO (08:52)
[2017-01-23] MEDS ORDERED: OXYC60TA8 PO (10:52)
[2017-01-23] MEDS ORDERED: CITA20TA4 PO (11:44)
[2017-01-23] MEDS ORDERED: ASPI81TA28 PO (13:54)
[2017-01-23] MEDS ORDERED: OMEG10007 PO (13:54)
[2017-01-23] MEDS ORDERED: ATOR-54 PO (14:05)
[2017-01-23] MEDS ORDERED: FRRS300 PO (14:05)
[2017-01-23] MEDS ORDERED: AMIT25TA9 PO (15:44)
[2017-01-23] MEDS ORDERED: ALPR-411 PO (16:37)
[2017-01-23] MEDS ORDERED: OXYC1TAB3 PO (16:59)
[2017-01-23] MEDS ORDERED: CALC600T PO (18:37)
[2017-01-23] MEDS ORDERED: TRAZ50TA35 PO (18:37)
[2017-02-09] MEDS ORDERED: SULF-183 PO (10:24)
[2017-02-09] MEDS ORDERED: OXYC1TAB3 PO (11:16)
[2017-02-09] MEDS ORDERED: OXYC60TA8 PO (11:16)
[2017-02-09] MEDS ORDERED: ALPR-411 PO (11:16)
[2017-02-09] MEDS ORDERED: TOBRAMYCIN IV (14:05)
[2017-02-13] MEDS ORDERED: zinc (18:34)
[2017-02-13] MEDS ORDERED: MULT-506 PO (18:34)
== END 2016-12-17 00:39 | disposition home or self-care (01) ==
LOC: C.EDB 21:02 → C.EDC 12-17 00:39
DX: N81.11 Cystocele, midline (principal); I10 Essential (primary) hypertension; F41.9 Anxiety disorder, unspecified; F32.9 Major depressive disorder, single episode, unspecified; E78.5 Hyperlipidemia, unspecified; Z87.891 Personal history of nicotine dependence; Z79.82 Long term (current) use of aspirin

== ENCOUNTER 2017-01-23 18:49 | Inpatient (IN) | payer OTHER ==
[~2017-01-23] VITALS: Ht 162.6 cm; Wt 67.4 kg
[~2017-01-23 18:49] MED LIST changes: +ALPR-411 PO; +AMIT25TA9 PO; +ASPI81TA28 PO; +ATOR-54 PO; +CALC600T PO; +CARV6.252 PO; +CITA20TA4 PO; +FRRS300 PO; -LCTX PO; +OMEG10007 PO; +OXYC1TAB3 PO; +OXYC60TA8 PO; +TRAZ50TA35 PO
[2017-01-23] MEDS ORDERED: ONDANSETRON INJ 2 MG/ML 2 ML VIAL IV STA (19:57)
[2017-01-23] MEDS ORDERED: HYDROmorphone INJ 2 MG/ML SYR/VIAL IV PRN (20:00)
--- NOTE | 2017-01-23 20:13 | EMERGENCY ROOM VISIT NOTE ---
History Report prepared by Jaguar: Aorldo Hilliard Under the Supervision of: Dr. Elian Sampson M.D. First contact with patient: 19:48 Chief Complaint: LEG PAIN,LEG INJURY Stated Complaint: PAIN IN LEG -LEFT History of Present Illness The patient is a 67 year old female who presents to the Emergency Room with complaints of sudden blockage in her artery of the left lower leg beginning one week prior to arrival. She currently rates her discomfort as a 9/10 in severity. The patient states she has an open wound that has been trying to heal since her surgery for drop foot in September 2015. She notes she was referred to the ED after receiving results from a Doppler scan that found her artery was 95 % blocked. The patient states she had the artery unblocked in July [address] Leal. She notes she had some improvement for a while following the procedure, but the pain has worsened. The patient states she has a history of MRSA in the wound. She notes she is currently on Augmentin and Bactrim. She notes the infection has not cleared since the surgery in September 2015. The patient associates a fever and left lower leg pain with today's symptoms. She states she has been seen multiple times for similar symptoms. 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 Review of Systems See HPI for pertinent positives & negatives. A total of 10 systems reviewed and were otherwise negative. Past Medical & Surgical Medical Problems: (1) Anxiety (2) Benign hypertension (3) Cellulitis of left lower extremity (4) Closed fracture of femur (5) Depression (6) Dyslipidemia (7) MRSA (methicillin resistant Staphylococcus aureus) (8) Nonhealing surgical wound (9) PAD (peripheral artery disease) (10) PFO (patent foramen ovale) (11) [place] Surgical Problems: (1) S/P section (2) S/p left ankle surgery (3) S/p left hip surgery (4) S/P lumbar spinal fusion (5) s/p resection sarcoma left thigh (6) S/P tonsillectomy and adenoidectomy Family History DVT FATHER FH: CAD (coronary artery disease) MOTHER (SD age 70) FH: pulmonary embolism SISTER Social History Smoking Status: Never Smoker Alcohol Use: none Drug Use: none Marital Status: Housing Status: lives with family Occupation Status: retired Current/Historical Medications Scheduled Amitriptyline Hcl (Elavil), 3 TAB PO HS Amoxicillin & Pot Clavulanate (Augmentin 875-125 mg), 1 TAB PO BID Aspirin (Aspirin Ec), 81 MG PO QAM Atorvastatin (Lipitor), 20 MG PO QPM Calcium Carbonate (Calcium 600), 600 MG PO DAILY Carvedilol (Coreg), 1 TAB PO BID Citalopram Hydrobromide (Citalopram Hydrobromide), 20 MG PO DAILY Ferrous Sulfate (Ferrous Sulfate), 325 MG PO BID Fish Oil ([place]-3), 4 CAP PO DAILY Lactobacillus Acidophilus (Lactinex), 2 TAB PO BID Oxycodone Hcl (Oxycontin), 60 MG PO Q12 Sulfa/Trimethoprim (Bactrim Ds 800MG/160MG), 1 TAB PO BID Trazodone Hcl (Trazodone), 50 MG PO HS Scheduled PRN Alprazolam (Xanax), 0.5 MG PO TID PRN for ANXIETY Oxycodone Ir (Roxicodone Ir), 5 MG PO Q4H PRN for Pain Allergies Coded Allergies: Vancomycin (Verified Adverse Reaction, Severe, WORSENING RENAL FUNCTION, ) Patient prescribed both vancomycin and pip/tazo therapy. Patient's vancomycin trough level for the 800mg IV q12h dosing came back subtherapeutic at 9.7mcg/ml. Vancomycin dose was changed to 1400mg IV q12h to provide an increase in trough and get a therapeutic level. However, trough level returned back on this newer dose as 19.9mcg/ml. Deemed dose to having caused a higher goal trough and determined that a lower dose of 1000mg IV q12h was needed to lower trough into goal range. However, patient's renal function had worsened on 08/02 from 0.46mg/dl for SCr on 08/01 to a SCr of 1.8mcg/ml. This could have been due to the vancomycin dosing or the combination of the patient being on vancomycin and pip/zosyn. At this point ID recommended to switch patient to daptomycin and continue on the piperacillin/tazobactam. Dr. Bagley was made aware of the situation. Renal function was to continue to be monitored as well as the vancomycin levels. Cetirizine (Verified Adverse Reaction, Unknown, BOWEL CRAMPS, 12/20/16) Physical Exam Vital Signs Date Time Temp Pulse Resp B/P Pulse Ox O2 Delivery O2 Flow Rate FiO2 01/23/17 22:24 67 18 90/46 94 Room Air 01/23/17 19:31 36.3 85 18 124/60 96 Room Air Physical Exam GENERAL: Patient is in no acute distress. HEENT: No acute trauma, normocephalic atraumatic, mucous membranes moist, no nasal congestion, no scleral icterus. NECK: No stridor, no adenopathy, no meningismus, trachea is midline. LUNGS: Clear to auscultation bilaterally, no wheeze, no rhonchi, breath sounds equal. HEART: Without murmurs gallops or rubs, regular rate and rhythm. ABDOMEN: Soft, nontender, bowel sounds positive, no hernias, no peritonitis. RECTAL: Brown stool. Heme negative EXTREMITIES: Left lower extremity has a healing open area to the distal leg and ankle on the medial and posterior aspect. Some swelling of the left leg in relation to the right. Capillary refill in the left foot and toes is extremely poor. NEUROLOGIC: Oriented x 3, no acute motor or sensory deficits, no focal weakness. SKIN: No rash, no jaundice, no diaphoresis. Medical Decision & Procedures ER Provider Diagnostic Interpretation: CT results as stated below per my review and radiologist interpretation: ULTRASOUND LEFT LOWER EXTREMITY ARTERIAL CLINICAL HISTORY: Left leg pain. COMPARISON STUDY: No priors. TECHNIQUE: Real-time, grayscale, and color Doppler sonography of the arteries of the left lower extremity is performed from the inguinal crease to the foot. Ankle-brachial indices were not assessed due to a lower extremity wound. FINDINGS: There is moderate echogenic shadowing atherosclerotic plaque and irregularity seen throughout the arteries of the left lower extremity. There are biphasic arterial waveforms in the common femoral artery with velocities measuring up to 73 cm/s. The left profunda femoris artery is patent with velocities measuring up to 26 cm/s. There are biphasic waveforms seen throughout the left superficial femoral artery with velocities measuring up to 120 cm/s. There are monophasic to biphasic waveforms in the left popliteal artery with velocities measuring up to 60 cm/s. There is three-vessel runoff to the left foot. Monophasic waveforms are seen in the calf, and velocities within the calf arteries measure up to 22 cm/s. The dorsalis pedis artery is patent with velocities measuring up to 27 cm/s. IMPRESSION: 1. Peripheral vascular disease, atherosclerotic plaque, and abnormal arterial waveforms as above. 2. There is no sonographic evidence of high-grade stenosis or focal vessel cut off seen throughout the arteries of the left lower extremity. Electronically signed by: Elian Barber M.D. 01/23/2017 11:07 PM ULTRASOUND LEFT LOWER EXTREMITY VENOUS CLINICAL HISTORY: Left leg swelling. COMPARISON STUDY: Left lower extremity venous ultrasound dated 10/13/2016. TECHNIQUE: Real-time, grayscale, and color Doppler sonography of the deep veins of the left lower extremity was performed from the inguinal crease to the calf. Compression and augmentation were utilized. FINDINGS: There is no sonographic evidence of deep venous thrombosis identified in the left lower extremity. The common femoral, superficial femoral, and popliteal veins are patent and normally compressible. The greater saphenous vein and the profunda femoris vein at the junction with the common femoral vein are clear. The visualized calf veins are patent. Prominent benign-appearing left inguinal lymph nodes are incidentally noted and likely on a reactive basis. IMPRESSION: There is no sonographic evidence of deep venous thrombosis identified in the left lower extremity. Electronically signed by: Elian Barber M.D. 01/23/2017 10:02 PM Laboratory Results 01/23/17 20:31 Red Blood Count 3.14, Mean Corpuscular Volume 88.5, Mean Corpuscular Hemoglobin 28.0, Mean Corpuscular Hemoglobin Concent 31.7, Mean Platelet Volume 8.4, Neutrophils (%) (Auto) 63.3, Lymphocytes (%) (Auto) 25.9, Monocytes (%) (Auto) 8.0, Eosinophils (%) (Auto) 2.3, Basophils (%) (Auto) 0.1, Neutrophils # (Auto) 5.26, Lymphocytes # (Auto) 2.15, Monocytes # (Auto) 0.66, Eosinophils # (Auto) 0.19, Basophils # (Auto) 0.01 01/23/17 20:31 Test 01/23/17 20:31 White Blood Count 8.30 K/uL (4.8-10.8) Red Blood Count 3.14 M/uL (4.2-5.4) Hemoglobin 8.8 g/dL (12.0-16.0) Hematocrit 27.8 % (37-47) Mean Corpuscular Volume 88.5 fL (80-100) Mean Corpuscular Hemoglobin 28.0 pg (25-34) Mean Corpuscular Hemoglobin Concent 31.7 g/dl (32-36) Platelet Count 346 K/uL (130-400) Mean Platelet Volume 8.4 fL (7.4-10.4) Neutrophils (%) (Auto) 63.3 % Lymphocytes (%) (Auto) 25.9 % Monocytes (%) (Auto) 8.0 % Eosinophils (%) (Auto) 2.3 % Basophils (%) (Auto) 0.1 % Neutrophils # (Auto) 5.26 K/uL (1.4-6.5) Lymphocytes # (Auto) 2.15 K/uL (1.2-3.4) Monocytes # (Auto) 0.66 K/uL (0.11-0.59) Eosinophils # (Auto) 0.19 K/uL (0-0.5) Basophils # (Auto) 0.01 K/uL (0-0.2) RDW Standard Deviation 46.2 fL (36.4-46.3) RDW Coefficient of Variation 14.2 % (11.5-14.5) Immature Granulocyte % (Auto) 0.4 % Immature Granulocyte # (Auto) 0.03 K/uL (0.00-0.02) Red Blood Cell Morphology Unremarkable Prothrombin Time 11.8 SECONDS (9.0-12.0) Prothromb Time International Ratio 1.1 (0.9-1.1) Activated Partial Thromboplast Time 33.1 SECONDS (21.0-31.0) Partial Thromboplastin Ratio 1.3 Anion Gap 9.0 mmol/L (3-11) Est Creatinine Clear Calc Drug Dose 47.0 ml/min Estimated GFR () 60.6 Estimated GFR (Non- 52.3 BUN/Creatinine Ratio 14.7 (10-20) Calcium Level 9.4 mg/dl (8.5-10.1) Total Bilirubin 0.3 mg/dl (0.2-1) Aspartate Amino Transf (AST/SGOT) 30 U/L (15-37) Alanine Aminotransferase (ALT/SGPT) 35 U/L (12-78) Alkaline Phosphatase 180 U/L (45-117) Total Protein 7.4 gm/dl (6.4-8.2) Albumin 2.4 gm/dl (3.4-5.0) Globulin 5.0 gm/dl (2.5-4.0) Albumin/Globulin Ratio 0.5 (0.9-2) Laboratory results reviewed by me. Medications Administered Medications (Trade) Dose Ordered Sig/Connor Route Start Time Stop Time Status Last Admin Dose Admin Hydromorphone HCl (Dilaudid Inj) 1 mg Q30M PRN IV 01/23/17 20:00 01/24/17 01:15 DC 01/23/17 20:52 1 MG Ondansetron HCl 4 mg 4 mg NOW STAT IV 01/23/17 19:57 01/23/17 20:02 DC 01/23/17 20:52 4 MG Sodium Chloride 500 ml @ 999 mls/hr Q31M STAT IV 01/23/17 23:11 01/23/17 23:41 DC 01/23/17 23:25 999 MLS/HR Sodium Chloride (Nss 1000ml) 1,000 ml @ 125 mls/hr Q8H STAT IV 01/23/17 23:11 01/24/17 01:15 DC 01/23/17 23:25 125 MLS/HR Heparin Sodium/ Dextrose (Heparin 25,000 Unit/500ml D5W) 25,000 unit STK-MED ONCE .ROUTE 01/23/17 23:41 01/23/17 23:42 DC 01/23/17 23:50 25,000 UNIT ED Course 1951: The patient was evaluated in room A2. A complete history and physical exam was performed. 1956: Ordered Zofran Inj 4 mg IV. 1999: Ordered Dilaudid Inj 1 mg IV. 0: Reevaluated and updated the patient at this time. 2310: Ordered Sodium Chloride 1,000 ml @ 125 mls/hr IV, Sodium Chloride 500 ml @ 999 mls/hr IV. 0: I spoke to Gely Dickerson (Hospitalist) about the patient's case, and he will follow the patient for further evaluation. He would like the patient started on Heparin. 2330: Ordered Heparin Sodium/ Dextrose 1 ea N/A. Medical Decision The differential diagnoses include but are not limited to: arterial occlusion, venous occlusion, cellulitis, failed outpatient treatment. There is no leukocytosis. The patient is anemic. Of note, stool is brown and heme testing is negative. There was no significant electrolyte abnormality, kidney failure or hepatitis. There was no coagulopathy. Venous left leg ultrasound does not show DVT. Arterial left leg ultrasound shows a lower flow state but there was no acute arterial occlusion. The patient received IV Dilaudid for pain, IV Zofran for nausea, she received IV saline. She is failing outpatient treatment for this leg wound. She has uncontrolled pain despite medications at home. She likely is having difficulty healing because of poor arterial circulation. At this point, admission/ observation is warranted. I did speak to case management, I talked to the patient. The on-call hospitalist was consulted. IV Heparin was started at the request of the on- call hospitalist. Consults Time Called: 2318 Consulting Physician: Gely Dickerson (Hospitalist) Returned Call: 2320 I spoke to Gely Dickerson (Hospitalist) about the patient's case, and he will follow the patient for further evaluation. He would like the patient started on Heparin. Impression Primary Impression: Leg pain, left Additional Impressions: Left leg cellulitis Occlusion of artery of leg Failure of outpatient treatment Anemia Scribe Attestation The scribe's documentation has been prepared under my direction and personally reviewed by me in its entirety. I confirm that the note above accurately reflects all work, treatment, procedures, and medical decision making performed by me. Departure Information Dispostion Being Evaluated By Hospitalist Referrals Shubham Timmons MD (PCP) Problem Qualifiers
[2017-01-23 20:43] LABS: BASO % 0.1 %; BASO ABS # 0.01 K/uL (0-0.2); EOS % 2.3 %; HEMATOCRIT 27.8 % (37-47); IG% 0.4 %; LYMPH % 25.9 %; LYMPH ABS # 2.15 K/uL (1.2-3.4); MEAN CELL VOLUME 88.5 fL (80-100); MEAN CORPUSCULAR HGB CONC 31.7 g/dl (32-36); MEAN PLATELET VOLUME 8.4 fL (7.4-10.4); NEUT % 63.3 %; PLATELET COUNT 346 K/uL (130-400); RED BLOOD COUNT 3.14 M/uL (4.2-5.4)
[2017-01-23 20:54] LABS: INR 1.1 (0.9-1.1); PARTIAL THROMBOPLASTIN RATIO 1.3; PROTHROMBIN TIME (PATIENT) 11.8 SECONDS (9.0-12.0)
[2017-01-23 21:03] LABS: BUN/CREATININE RATIO 14.7 (10-20); CALCIUM 9.4 mg/dl (8.5-10.1); CREATININE 1.1 mg/dl (0.60-1.20); POTASSIUM 4.2 mmol/L (3.5-5.1)
[2017-01-23 21:06] LABS: ALB/GLOB RATIO 0.5 (0.9-2)
[2017-01-23] MEDS ORDERED: LCTX PO (21:27)
[2017-01-23] MEDS ORDERED: AMOX875T PO (21:35)
[2017-01-23] MEDS ORDERED: SULF800T23 PO (21:35)
[2017-01-23 21:51] LABS: COMPLETE YES
--- NOTE | 2017-01-23 22:03 | DIAGNOSTIC IMAGING REPORT ---
ULTRASOUND LEFT LOWER EXTREMITY VENOUS CLINICAL HISTORY: Left leg swelling. COMPARISON STUDY: Left lower extremity venous ultrasound dated 10/13/2016. TECHNIQUE: Real-time, grayscale, and color Doppler sonography of the deep veins of the left lower extremity was performed from the inguinal crease to the calf. Compression and augmentation were utilized. FINDINGS: There is no sonographic evidence of deep venous thrombosis identified in the left lower extremity. The common femoral, superficial femoral, and popliteal veins are patent and normally compressible. The greater saphenous vein and the profunda femoris vein at the junction with the common femoral vein are clear. The visualized calf veins are patent. Prominent benign-appearing left inguinal lymph nodes are incidentally noted and likely on a reactive basis. IMPRESSION: There is no sonographic evidence of deep venous thrombosis identified in the left lower extremity. Electronically signed by: Elian Barber M.D. 01/23/2017 10:02 PM Dictated Date/Time: 01/23/2017 10:01 PM
--- NOTE | 2017-01-23 23:08 | DIAGNOSTIC IMAGING REPORT ---
ULTRASOUND LEFT LOWER EXTREMITY ARTERIAL CLINICAL HISTORY: Left leg pain. COMPARISON STUDY: No priors. TECHNIQUE: Real-time, grayscale, and color Doppler sonography of the arteries of the left lower extremity is performed from the inguinal crease to the foot. Ankle-brachial indices were not assessed due to a lower extremity wound. FINDINGS: There is moderate echogenic shadowing atherosclerotic plaque and irregularity seen throughout the arteries of the left lower extremity. There are biphasic arterial waveforms in the common femoral artery with velocities measuring up to 73 cm/s. The left profunda femoris artery is patent with velocities measuring up to 26 cm/s. There are biphasic waveforms seen throughout the left superficial femoral artery with velocities measuring up to 120 cm/s. There are monophasic to biphasic waveforms in the left popliteal artery with velocities measuring up to 60 cm/s. There is three-vessel runoff to the left foot. Monophasic waveforms are seen in the calf, and velocities within the calf arteries measure up to 22 cm/s. The dorsalis pedis artery is patent with velocities measuring up to 27 cm/s. IMPRESSION: 1. Peripheral vascular disease, atherosclerotic plaque, and abnormal arterial waveforms as above. 2. There is no sonographic evidence of high-grade stenosis or focal vessel cut off seen throughout the arteries of the left lower extremity. Electronically signed by: Elian Barber M.D. 01/23/2017 11:07 PM Dictated Date/Time: 01/23/2017 10:03 PM
[2017-01-23] MEDS ORDERED: SODIUM CHLORIDE 0.9% 500ML 500 ML IV STA (23:11)
[2017-01-23] MEDS ORDERED: SODIUM CHLORIDE 0.9% 1000ML 1,000 ML IV STA (23:11)
--- NOTE | 2017-01-23 23:24 | History and Physical ---
History & Physical Date & Time of Service: January 23, 2017 at 23:24 Chief Complaint: Pain In Leg -Left Primary Care Physician: Shubham Timmons MD History of Present Illness Source: patient, family Patient is a 66 year old female with PMHx of PAD, HTN, HLD, and nonhealing surgical wound and skin graft site of left leg presents with history of worsening left leg pain and non healing wound. Patient had a complicated course following a tendon transfer for dropped foot in September 2015 and since then had nonhealing wound with osteomyelitis and has H/O MRSA as well. She had multiple admissions for similar complaints. She states she has been on Oral antibiotics ( Augmentin and Bactrim) since 2 months and also has been following with Dr. Timmons. She complains of worsening leg pain even at rest and reports the left leg wound is draining and increased left leg erythema and more swollen. " I leg looks like raw meat". Her home health nurse recommended her to go to hospital today. She denies any fevers, chills, chest pain, SOB, nausea, vomiting, diarrhea, dysuria, calf pain. 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 Status: Resolved Surgical Problems: (1) S/P section Status: Chronic (2) S/p left ankle surgery Permanent Comment: 09/2015- Left Ankle Open Achilles Tendon Lengthening, Open Flexor Hallucis Longus and Flexor Digitorum Longus Lengthening, Posterior Tibial Tendon Transfer to cuboid, Posterior Ankle Capsulotomy Status: Chronic (3) S/p left hip surgery Status: Chronic (4) S/P lumbar spinal fusion Status: Chronic (5) s/p resection sarcoma left thigh Permanent Comment: [facility] 1990 Status: Chronic (6) S/P tonsillectomy and adenoidectomy Status: Chronic Family History DVT FATHER FH: CAD (coronary artery disease) MOTHER (DE age 70) FH: pulmonary embolism SISTER Social History Smoking Status: Former Smoker Alcohol Use: none Drug Use: none Marital Status: Housing status: lives with family Occupational Status: retired Immunizations History of Influenza Vaccine: Yes Influenza Vaccine Date: Apr 19, 2013 History of Tetanus Vaccine?: Unknown History of Pneumococcal: No History of Hepatitis B Vaccine: Unknown Multi-Drug Resistant Organisms History of MDRO: Yes Type of MDRO: MRSA Allergies Coded Allergies: Vancomycin (Verified Adverse Reaction, Severe, WORSENING RENAL FUNCTION, ) Patient prescribed both vancomycin and pip/tazo therapy. Patient's vancomycin trough level for the 800mg IV q12h dosing came back subtherapeutic at 9.7mcg/ml. Vancomycin dose was changed to 1400mg IV q12h to provide an increase in trough and get a therapeutic level. However, trough level returned back on this newer dose as 19.9mcg/ml. Deemed dose to having caused a higher goal trough and determined that a lower dose of 1000mg IV q12h was needed to lower trough into goal range. However, patient's renal function had worsened on 08/02 from 0.46mg/dl for SCr on 08/01 to a SCr of 1.8mcg/ml. This could have been due to the vancomycin dosing or the combination of the patient being on vancomycin and pip/zosyn. At this point ID recommended to switch patient to daptomycin and continue on the piperacillin/tazobactam. Dr. Bagley was made aware of the situation. Renal function was to continue to be monitored as well as the vancomycin levels. Cetirizine (Verified Adverse Reaction, Unknown, BOWEL CRAMPS, 12/20/16) Home Medications Scheduled Amitriptyline Hcl (Elavil), 3 TAB PO HS Amoxicillin & Pot Clavulanate (Augmentin 875-125 mg), 1 TAB PO BID Aspirin (Aspirin Ec), 81 MG PO QAM Atorvastatin (Lipitor), 20 MG PO QPM Calcium Carbonate (Calcium 600), 600 MG PO DAILY Carvedilol (Coreg), 1 TAB PO BID Citalopram Hydrobromide (Citalopram Hydrobromide), 20 MG PO DAILY Ferrous Sulfate (Ferrous Sulfate), 325 MG PO BID Fish Oil ([place]-3), 4 CAP PO DAILY Lactobacillus Acidophilus (Lactinex), 2 TAB PO BID Oxycodone Hcl (Oxycontin), 60 MG PO Q12 Sulfa/Trimethoprim (Bactrim Ds 800MG/160MG), 1 TAB PO BID Trazodone Hcl (Trazodone), 50 MG PO HS Scheduled PRN Alprazolam (Xanax), 0.5 MG PO TID PRN for ANXIETY Oxycodone Ir (Roxicodone Ir), 5 MG PO Q4H PRN for Pain Review of Systems See HPI for pertinent positives & negatives. A total of 10 systems reviewed and were otherwise negative. Physical Exam Vital Signs Date Time Temp Pulse Resp B/P Pulse Ox O2 Delivery O2 Flow Rate FiO2 01/23/17 22:24 67 18 90/46 94 Room Air 01/23/17 19:31 36.3 85 18 124/60 96 Room Air General Appearance: WD/WN, no apparent distress Head: normocephalic, atraumatic Eyes: normal inspection, PERRL, EOMI, sclerae normal ENT: normal ENT inspection, hearing grossly normal Neck: supple, trachea midline Respiratory/Chest: chest non-tender, lungs clear, normal breath sounds, no respiratory distress, no accessory muscle use Cardiovascular: regular rate, rhythm, no murmur, + pertinent finding (Left leg edema) Abdomen/GI: normal bowel sounds, non tender, soft Back: normal inspection Extremities/Musculoskelatal: no calf tenderness, + swelling, + pertinent finding (Left leg erythematous, swollen. 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, no motor/sensory deficits, alert, normal mood/affect, oriented x 3 Skin: normal color, warm/dry Diagnostics Laboratory Results Results Past 24 Hours Test 01/23/17 20:31 Range/Units White Blood Count 8.30 4.8-10.8 K/uL Red Blood Count 3.14 4.2-5.4 M/uL Hemoglobin 8.8 12.0-16.0 g/dL Hematocrit 27.8 37-47 % Mean Corpuscular Volume 88.5 80-100 fL Mean Corpuscular Hemoglobin 28.0 25-34 pg Mean Corpuscular Hemoglobin Concent 31.7 32-36 g/dl Platelet Count 346 130-400 K/uL Mean Platelet Volume 8.4 7.4-10.4 fL Neutrophils (%) (Auto) 63.3 % Lymphocytes (%) (Auto) 25.9 % Monocytes (%) (Auto) 8.0 % Eosinophils (%) (Auto) 2.3 % Basophils (%) (Auto) 0.1 % Neutrophils # (Auto) 5.26 1.4-6.5 K/uL Lymphocytes # (Auto) 2.15 1.2-3.4 K/uL Monocytes # (Auto) 0.66 0.11-0.59 K/uL Eosinophils # (Auto) 0.19 0-0.5 K/uL Basophils # (Auto) 0.01 0-0.2 K/uL RDW Standard Deviation 46.2 36.4-46.3 fL RDW Coefficient of Variation 14.2 11.5-14.5 % Immature Granulocyte % (Auto) 0.4 % Immature Granulocyte # (Auto) 0.03 0.00-0.02 K/uL Red Blood Cell Morphology Unremarkable Prothrombin Time 11.8 9.0-12.0 SECONDS Prothromb Time International Ratio 1.1 0.9-1.1 Activated Partial Thromboplast Time 33.1 21.0-31.0 SECONDS Partial Thromboplastin Ratio 1.3 Sodium Level 134 136-145 mmol/L Potassium Level 4.2 3.5-5.1 mmol/L Chloride Level 97 98-107 mmol/L Carbon Dioxide Level 28 21-32 mmol/L Anion Gap 9.0 3-11 mmol/L Blood Urea Nitrogen 16 7-18 mg/dl Creatinine 1.10 0.60-1.20 mg/dl Est Creatinine Clear Calc Drug Dose 47.0 ml/min Estimated GFR () 60.6 Estimated GFR (Non- 52.3 BUN/Creatinine Ratio 14.7 10-20 Random Glucose 104 70-99 mg/dl Calcium Level 9.4 8.5-10.1 mg/dl Total Bilirubin 0.3 0.2-1 mg/dl Aspartate Amino Transf (AST/SGOT) 30 15-37 U/L Alanine Aminotransferase (ALT/SGPT) 35 12-78 U/L Alkaline Phosphatase 180 45-117 U/L Total Protein 7.4 6.4-8.2 gm/dl Albumin 2.4 3.4-5.0 gm/dl Globulin 5.0 2.5-4.0 gm/dl Albumin/Globulin Ratio 0.5 0.9-2 Diagnostic Radiology Left Lower Ext arterial Doppler: 1. Peripheral vascular disease, atherosclerotic plaque, and abnormal arterial waveforms as above. 2. There is no sonographic evidence of high-grade stenosis or focal vessel cut off seen throughout the arteries of the left lower extremity. Left LE venous Doppler: There is no sonographic evidence of deep venous thrombosis identified in the left lower extremity. Impression Assessment and Plan LEFT LOWER EXTREMITY CELLULITIS - H/O MRSA No signs of sepsis Blood/Wound cultures Empirically start Daptomycin and Zosyn Consult ID Wound care Doppler US: No DVT PAD Presented with rest pain continue Aspirin Arterial Doppler:no sonographic evidence of high-grade stenosis or focal vessel cut off Start IV Heparin ggt Consult Vascular surgery NPO after midnight Pain control HTN Stable continue Coreg BID HLD hold statin while on daptomycin DEPRESSION Stable Continue home meds H/O LYMPHOSARCOMA stable DVT PX: On Heparin CODE STATUS: FULL CODE
[2017-01-23] MEDS ORDERED: ACETAMINOPHEN 325 MG TAB PO PRN (23:30)
[2017-01-23] MEDS ORDERED: ONDANSETRON INJ 2 MG/ML 2 ML VIAL IV PRN (23:30)
[2017-01-23] MEDS ORDERED: HEPARIN 25000 UNIT/500 ML D5W ONE (23:41)
[2017-01-24] VITALS (12 sets, daily range): BP systolic 105–125; BP diastolic 45–67; PULSE 68–99; TEMP 36.6–37.9; O2SAT 94–100; Ht 162.6 cm; Wt 67.4 kg
[2017-01-24] MEDS ORDERED: DAPTOMYCIN CONSULT ACTIVE PRN ×2 (00:08)
[2017-01-24] MEDS ORDERED: PIPERACILL/TAZOBAC IV 3.375 GM in DEXTROSE 5% 100ML IV STA (00:15)
[2017-01-24] MEDS ORDERED: SODIUM CHLORIDE 0.9% 1000ML 1,000 ML IV SCH ×2 (01:15→16:06)
[2017-01-24] MEDS ORDERED: PIPERACILL/TAZOBAC CONSULT ACTIVE PRN (01:30)
[2017-01-24] MEDS ORDERED: OXYCODONE HCL 20 MG TABCR (OXYCONTIN) PO STA (01:59)
[2017-01-24] MEDS: AMITRIPTYLINE HCL 25 MG TAB PO SCH ×2 (02:21→20:41)
[2017-01-24] MEDS: TRAZODONE HCL 50 MG TAB PO SCH ×2 (02:21→20:40)
[2017-01-24] MEDS: DAPTOmycin IV 275 MG in SODIUM CHLORIDE 0.9% 50ML 50 ML IV SCH (02:22)
[2017-01-24] MEDS: HEPARIN 25,000 UNIT/500ML D5W 500 ML IV PRN ×3 (02:36→10:50)
[2017-01-24] MEDS: PIPERACILL/TAZOBAC IV 3.375 GM in DEXTROSE 5% 100ML IV SCH ×2 (05:55→18:14)
[2017-01-24] MEDS: OXYCODONE HCL 20 MG TABCR (OXYCONTIN) PO SCH ×2 (08:47→20:40)
[2017-01-24] MEDS: LACTOBACILLUS ACIDOPHILUS (FLORANEX) TAB PO SCH ×2 (08:47→20:39)
[2017-01-24] MEDS: FERROUS SULFATE 325 MG TAB PO SCH ×2 (08:47→20:40)
[2017-01-24] MEDS: CARVEDILOL 6.25 MG TAB PO SCH ×2 (09:07→20:41)
[2017-01-24] MEDS: ASPIRIN 81 MG ECTAB PO SCH (09:07)
[2017-01-24] MEDS: CITALOPRAM 20 MG TAB PO SCH (09:07)
[2017-01-24 09:33] LABS: PARTIAL THROMBOPLASTIN RATIO 1.5
[2017-01-24] MEDS ORDERED: HEPARIN IV BOLUS 5,000 UNIT in SYRINGE 0 ML IV SCH (10:30)
--- NOTE | 2017-01-24 10:30 | Medical Consult ---
Consultation Date of Consultation: January 24, 2017. Attending Physician: Berna Gloria M.D. Reason for Consultation: Left leg cellulitis History of Present Illness Patient is a 67-year-old female well known to the Infectious Disease service for prior left lower extremity wounds with infection who presented to the emergency department with complaints of severe pain the lower extremity. The patient overall has had problems with healing her left lower extremity following skin grafting, PAD and multiple infections which were polymicrobial in nature. The patient has been following [facility], and these records were reviewed today. Her wound images were reviewed from her most recent visits. The patient does have history of MRSA, pasteurella, coag- negative staph, Enterobacter, and stenotrophomonas maltophilia from her wound. She is currently on IV Zosyn and daptomycin since admission. Her white blood cell count on admission was 8.30, and her creatinine was 1.10. She did have a venous Doppler of the left lower extremity which showed no evidence of DVT, and an arterial Doppler showed peripheral vascular disease, atherosclerotic plaque, and abnormal arterial waveforms, but no sonographic evidence of high-grade stenosis. Past Medical/Surgical History Medical Problems: (1) Acute kidney injury Status: Acute (2) Anemia Status: Acute (3) Failure of outpatient treatment Status: Acute (4) Gangrene of lower extremity Status: Acute (5) Left leg cellulitis Status: Acute (6) Leg pain, left Status: Acute (7) Occlusion of artery of leg Status: Acute (8) Sepsis Status: Acute Medical Problems: (1) Anxiety (2) Benign hypertension (3) Cellulitis of left lower extremity (4) Closed fracture of femur (5) Depression (6) Dyslipidemia (7) History of methicillin resistant staphylococcus aureus (MRSA) (8) History of osteomyelitis (9) MRSA (methicillin resistant Staphylococcus aureus) (10) Nonhealing surgical wound (11) PAD (peripheral artery disease) (12) PFO (patent foramen ovale) (13) Sarcoma Surgical Problems: (1) S/P section (2) S/p left ankle surgery (3) S/p left hip surgery (4) S/P lumbar spinal fusion (5) s/p resection sarcoma left thigh (6) S/P tonsillectomy and adenoidectomy Family History DVT FATHER FH: CAD (coronary artery disease) MOTHER ([place] age 70) FH: pulmonary embolism SISTER Noncontributory Social History Smoking Status: Former Smoker Alcohol Use: none Drug Use: none Marital Status: Housing Status: lives with family Occupation Status: retired Allergies Coded Allergies: Vancomycin (Verified Adverse Reaction, Severe, WORSENING RENAL FUNCTION, ) Patient prescribed both vancomycin and pip/tazo therapy. Patient's vancomycin trough level for the 800mg IV q12h dosing came back subtherapeutic at 9.7mcg/ml. Vancomycin dose was changed to 1400mg IV q12h to provide an increase in trough and get a therapeutic level. However, trough level returned back on this newer dose as 19.9mcg/ml. Deemed dose to having caused a higher goal trough and determined that a lower dose of 1000mg IV q12h was needed to lower trough into goal range. However, patient's renal function had worsened on 08/02 from 0.46mg/dl for SCr on 08/01 to a SCr of 1.8mcg/ml. This could have been due to the vancomycin dosing or the combination of the patient being on vancomycin and pip/zosyn. At this point ID recommended to switch patient to daptomycin and continue on the piperacillin/tazobactam. Dr. Bagley was made aware of the situation. Renal function was to continue to be monitored as well as the vancomycin levels. Cetirizine (Verified Adverse Reaction, Unknown, BOWEL CRAMPS, 12/20/16) Home Medications Reported Home Medications Medications Dose Route/Sig Max Daily Dose Days Date Category Lactinex (Lactobacillus Acidophilus) Tab 2 Tab PO BID 01/23/17 Reported Augmentin 875-125 mg (Amoxicillin & Pot Clavulanate) Unknown Strength Tab 1 Tab PO BID 12/16/16 Reported Bactrim Ds 800MG/160MG (Trimethoprim/Sulfamethoxazole) Tab 1 Tab PO BID 12/16/16 Reported Elavil (Amitriptyline Hcl) 25 Mg Tab 3 Tab PO HS 30 10/13/16 Reported Oxycontin (Oxycodone Hcl) 60 Mg Tab 60 Mg PO Q12 09/08/16 Reported Coreg (Carvedilol) 6.25 Mg Tab 1 Tab PO BID 90 08/20/16 Reported Roxicodone Ir (Oxycodone HCl) 5 Mg Tab 5 Mg PO Q4H PRN 07/28/16 Reported Trazodone (Trazodone HCl) 50 Mg Tab 50 Mg PO HS 05/19/16 Reported Calcium 600 (Calcium Carbonate) 600 Mg Tab 600 Mg PO DAILY 05/19/16 Reported Citalopram Hydrobromide 20 Mg Tab 20 Mg PO DAILY 03/13/15 Reported [place]-3 (Fish Oil) 1 Ea Cap 4 Cap PO DAILY 02/25/15 Reported Aspirin Ec (Aspirin) 81 Mg Tab 81 Mg PO QAM 02/25/15 Reported Ferrous Sulfate 325 Mg Tab 325 Mg PO BID 12/27/13 Reported Lipitor (Atorvastatin) 20 Mg Tab 20 Mg PO QPM 12/27/13 Reported Xanax (Alprazolam) 0.5 Mg Tab 0.5 Mg PO TID PRN 03/27/13 Reported Current Inpatient Medications Current Inpatient Medications Medications (Trade) Dose Ordered Sig/Connor Route Start Time Stop Time Status Last Admin Dose Admin Acetaminophen (Tylenol Tab) 650 mg Q4H PRN PO 01/23/17 23:30 02/22/17 23:29 Ondansetron HCl 4 mg 4 mg Q6H PRN IV 01/23/17 23:30 02/22/17 23:29 Sodium Chloride (Nss 1000ml) 1,000 ml @ 80 mls/hr [id number] IV 01/24/17 01:15 02/23/17 01:14 01/24/17 02:22 80 MLS/HR Daptomycin (Consult) 1 ea DAILY PRN N/A 01/24/17 00:08 02/23/17 00:07 Alprazolam (Xanax Tab) 0.5 mg TID PRN PO 01/24/17 00:15 02/23/17 00:14 Amitriptyline HCl (Elavil Tab) 75 mg HS PO 01/24/17 21:00 02/23/17 20:59 01/24/17 02:21 75 MG Aspirin (Ecotrin Tab) 81 mg QAM PO 01/24/17 09:00 02/23/17 08:59 01/24/17 09:07 81 MG Carvedilol (Coreg Tab) 6.25 mg BID PO 01/24/17 09:00 02/23/17 08:59 01/24/17 09:07 6.25 MG Citalopram Hydrobromide (celeXA TAB) 20 mg DAILY PO 01/24/17 09:00 02/23/17 08:59 01/24/17 09:07 20 MG Ferrous Sulfate (Feosol Tab) 325 mg BID PO 01/24/17 09:00 02/23/17 08:59 Lactobacillus Acidophilus (Floranex Tab) 2 tab BID PO 01/24/17 09:00 02/23/17 08:59 Oxycodone HCl (Oxycontin Tab) 60 mg Q12 PO 01/24/17 09:00 02/07/17 08:59 Oxycodone HCl (Roxicodone Immediate Rel Tab) 5 mg Q4H PRN PO 01/24/17 00:15 02/07/17 00:14 Trazodone HCl 50 mg 50 mg HS PO 01/24/17 21:00 02/23/17 20:59 01/24/17 02:21 50 MG Daptomycin 275 mg/ Sodium Chloride 55.5 ml @ 120 mls/hr DAILY@0200 IV 01/24/17 02:00 02/03/17 01:59 01/24/17 02:22 120 MLS/HR Piperacillin Sod/ Tazobactam Sod/ Dextrose (Zosyn Iv/D5 100ml) 115 ml @ 28.75 mls/ hr Q8H IV 01/24/17 06:00 02/03/17 05:59 01/24/17 05:55 28.75 MLS/HR Piperacillin Sod/ Tazobactam Sod 1 ea 1 ea UD PRN N/A 01/24/17 01:30 02/23/17 01:29 Heparin Sodium/ Dextrose (Heparin 25,000 Unit/500ml D5W) 500 ml @ 21 mls/hr [id number] PRN IV 01/24/17 02:30 02/23/17 02:29 01/24/17 07:25 21 MLS/HR Miscellaneous Information (Nursing Heparin Iv Rate Change) 1 ea ONE ONCE N/A 01/24/17 10:00 01/24/17 10:01 UNV Review of Systems Constitutional: + fever (low grade at home (via home nurse)) Eyes: No worsening of vision ENT: No hearing loss, No sore throat Respiratory: No cough, No shortness of breath Cardiovascular: No chest pain Abdomen: No diarrhea, No pain, No vomiting Musculoskeletal: + problem reported (left lower leg with increasing pain and "raw meat" appearance), + swelling Genitourinary - Female: No dysuria, No urinary frequency Integumentary: + new/changing skin lesions (leg ulceration with increasing erythema/drainage), No rash Physical Exam Date Time Temp Pulse Resp B/P Pulse Ox O2 Delivery O2 Flow Rate FiO2 01/24/17 07:08 36.8 70 16 116/66 94 Room Air 01/24/17 01:20 Room Air 01/24/17 01:20 36.6 68 16 110/67 97 Room Air 01/24/17 01:09 36.6 68 16 110/67 97 Room Air 01/24/17 00:18 68 16 112/55 93 Room Air 01/23/17 22:24 67 18 90/46 94 Room Air 01/23/17 19:31 36.3 85 18 124/60 96 Room Air General Appearance: WD/WN, no apparent distress Head: normocephalic, atraumatic Eyes: normal inspection, sclerae normal ENT: hearing grossly normal Neck: supple, trachea midline Respiratory/Chest: chest non-tender, lungs clear, normal breath sounds, no respiratory distress, no accessory muscle use Cardiovascular: regular rate, rhythm Abdomen/GI: normal bowel sounds, non tender, soft Extremities/Musculoskelatal: + pertinent finding (left leg noted to have edema and dressing in place. ) Neurologic/Psych: + pertinent finding (lethargic) Skin: + pertinent finding (Note macerated left lower extremity wound with dark/ black areas, serous appearing drainage, and surrounding erythema) Laboratory Results ULTRASOUND LEFT LOWER EXTREMITY VENOUS CLINICAL HISTORY: Left leg swelling. COMPARISON STUDY: Left lower extremity venous ultrasound dated 10/13/2016. TECHNIQUE: Real-time, grayscale, and color Doppler sonography of the deep veins of the left lower extremity was performed from the inguinal crease to the calf. Compression and augmentation were utilized. FINDINGS: There is no sonographic evidence of deep venous thrombosis identified in the left lower extremity. The common femoral, superficial femoral, and popliteal veins are patent and normally compressible. The greater saphenous vein and the profunda femoris vein at the junction with the common femoral vein are clear. The visualized calf veins are patent. Prominent benign-appearing left inguinal lymph nodes are incidentally noted and likely on a reactive basis. IMPRESSION: There is no sonographic evidence of deep venous thrombosis identified in the left lower extremity. Item Value Date Time Gram Stain - Final Resulted 01/24/17 0135 Ulcer Leg Lower Left Blood Culture Received 01/24/1733 Blood Pending Blood Culture Received 01/24/1729 Blood Pending Last 24 Hours Test 01/23/17 20:31 01/24/17 09:01 White Blood Count 8.30 K/uL Red Blood Count 3.14 M/uL Hemoglobin 8.8 g/dL Hematocrit 27.8 % Mean Corpuscular Volume 88.5 fL Mean Corpuscular Hemoglobin 28.0 pg Mean Corpuscular Hemoglobin Concent 31.7 g/dl Platelet Count 346 K/uL Mean Platelet Volume 8.4 fL Neutrophils (%) (Auto) 63.3 % Lymphocytes (%) (Auto) 25.9 % Monocytes (%) (Auto) 8.0 % Eosinophils (%) (Auto) 2.3 % Basophils (%) (Auto) 0.1 % Neutrophils # (Auto) 5.26 K/uL Lymphocytes # (Auto) 2.15 K/uL Monocytes # (Auto) 0.66 K/uL Eosinophils # (Auto) 0.19 K/uL Basophils # (Auto) 0.01 K/uL RDW Standard Deviation 46.2 fL RDW Coefficient of Variation 14.2 % Immature Granulocyte % (Auto) 0.4 % Immature Granulocyte # (Auto) 0.03 K/uL Red Blood Cell Morphology Unremarkable Prothrombin Time 11.8 SECONDS Prothromb Time International Ratio 1.1 Activated Partial Thromboplast Time 33.1 SECONDS 38.0 SECONDS Partial Thromboplastin Ratio 1.3 1.5 Sodium Level 134 mmol/L Potassium Level 4.2 mmol/L Chloride Level 97 mmol/L Carbon Dioxide Level 28 mmol/L Anion Gap 9.0 mmol/L Blood Urea Nitrogen 16 mg/dl Creatinine 1.10 mg/dl Est Creatinine Clear Calc Drug Dose 47.0 ml/min Estimated GFR () 60.6 Estimated GFR (Non- 52.3 BUN/Creatinine Ratio 14.7 Random Glucose 104 mg/dl Calcium Level 9.4 mg/dl Total Bilirubin 0.3 mg/dl Aspartate Amino Transf (AST/SGOT) 30 U/L Alanine Aminotransferase (ALT/SGPT) 35 U/L Alkaline Phosphatase 180 U/L Total Protein 7.4 gm/dl Albumin 2.4 gm/dl Globulin 5.0 gm/dl Albumin/Globulin Ratio 0.5 Assessment & Plan Patient with worsening of chronic left lower extremity ulceration in the setting of PAD and history of polymicrobial infection of the wound. Venous Doppler showed no DVT of the LLE. She is currently on IV Zosyn and Daptomycin which is appropriate pending further workup. She likely will need multiple days or more of IV therapy and wound debridement. Wound culture and blood cultures currently pending. We will follow. PROVIDER ADDENDUM: Pt. examined and reviewed with Ms. Arndt. Agree with above assessment.
[2017-01-24] MEDS ORDERED: NURSING VERBAL MED ORDER ONE ×2 (11:30→14:00)
--- NOTE | 2017-01-24 12:55 | Procedure Note ---
Pre-Mod Sedation Assessment General Date of Moderate Sedation: January 24, 2017. Vital Signs: Vital Signs Past 12 Hours Date Time Temp Pulse Resp B/P Pulse Ox O2 Delivery O2 Flow Rate FiO2 01/24/17 07:31 Room Air 01/24/17 07:08 36.8 70 16 116/66 94 Room Air 01/24/17 01:20 Room Air 01/24/17 01:20 36.6 68 16 110/67 97 Room Air 01/24/17 01:09 36.6 68 16 110/67 97 Room Air Review Cardiovascular: regular rate, rhythm, no edema Abdomen: normal bowel sounds, non tender Lungs: chest non-tender, lungs clear Airway Class: II Pre-Sedation Airway Assessment Oral Cavity: Dentures Able to Visualize Vocal Cords: No Short Thick Neck: No Hx of Sleep Apnea: No Smoking Status: Former Smoker Mallampati Classification: Class III ASA Classification: Class II Procedure Planning Contraindications-for Mod Sed: None Yes Notes The planned sedation has been discussed with the patient and consent obtained. I have identified the patient, determined the appropriateness of sedation and have assessed the patient immediately prior to the procedure. All medicine(s) and interventions are by my order.
[2017-01-24] MEDS ORDERED: MIDAZOLAM HCL 1 MG/ML 2ML VIAL ONE ×3 (13:17→14:56)
[2017-01-24] MEDS ORDERED: FENTANYL CITRATE INJ 50 MCG/1 ML 2 ML VIAL ONE ×2 (13:17→14:49)
[2017-01-24] MEDS ORDERED: MIDAZOLAM HCL 1 MG/ML 2ML VIAL IV ONE ×5 (13:40→15:05)
[2017-01-24] MEDS ORDERED: FENTANYL CITRATE INJ 50 MCG/1 ML 2 ML VIAL IV ONE ×6 (13:40→15:43)
[2017-01-24] MEDS ORDERED: LIDOCAINE HCL 1% 20 ML VIAL INFIL ONE ×2 (13:44→15:35)
--- NOTE | 2017-01-24 13:52 | Progress Note ---
Internal Med Progress Note Date of Service: January 24, 2017. Provider Documentation: SUBJECTIVE: The patient was seen and examined A little drowsy today Complains of some pain in left leg No CP,Palpitation,SOB OBJECTIVE: Vital Signs-as noted below Exam: General-No distress at rest Eyes-normal ENT-normal Neck-supple Lungs-clear to ausucltate bilaterally Heart-Regular,no murmur Abdomen-Benign,no masses,bowel sound present Extremities-Right leg -minimal edema Left Leg is bandaged,no sensation and no movement of the left foot/leg Neuro-AAOx3 Lab data as noted below. ASSESSMENT & PLAN: Chronic Wound Left Lower Extremity with Cellulitis H/O MRSA and chronic use of antibiotic No signs of sepsis Blood/Wound cultures-pending Empirically started on Daptomycin and Zosyn Consult ID-appreciate input Wound care consulted Plastic Surgery consulted Doppler US: No DVT PAD Presented with rest pain Arterial Doppler:no sonographic evidence of high-grade stenosis or focal vessel cut off Start IV Heparin ggt Consult Vascular surgery -appreciate input Will go for arterial procedure today Continue Aspirin Plastic surgery consulted for possible debridement and graft HTN Stable continue Coreg BID HLD Hold statin while on daptomycin DEPRESSION Stable Continue home meds H/O LYMPHOSARCOMA stable DVT PX: On Heparin CODE STATUS: FULL CODE DISPOSITION Awaited Vital Signs: Date Time Temp Pulse Resp B/P Pulse Ox O2 Delivery O2 Flow Rate FiO2 01/24/17 07:31 Room Air 01/24/17 07:08 36.8 70 16 116/66 94 Room Air 01/24/17 01:20 Room Air 01/24/17 01:20 36.6 68 16 110/67 97 Room Air 01/24/17 01:09 36.6 68 16 110/67 97 Room Air 01/24/17 00:18 68 16 112/55 93 Room Air 01/23/17 22:24 67 18 90/46 94 Room Air 01/23/17 19:31 36.3 85 18 124/60 96 Room Air Lab Results: Results Past 24 Hours Test 01/23/17 20:31 01/24/17 09:01 Range/Units White Blood Count 8.30 4.8-10.8 K/uL Red Blood Count 3.14 4.2-5.4 M/uL Hemoglobin 8.8 12.0-16.0 g/dL Hematocrit 27.8 37-47 % Mean Corpuscular Volume 88.5 80-100 fL Mean Corpuscular Hemoglobin 28.0 25-34 pg Mean Corpuscular Hemoglobin Concent 31.7 32-36 g/dl Platelet Count 346 130-400 K/uL Mean Platelet Volume 8.4 7.4-10.4 fL Neutrophils (%) (Auto) 63.3 % Lymphocytes (%) (Auto) 25.9 % Monocytes (%) (Auto) 8.0 % Eosinophils (%) (Auto) 2.3 % Basophils (%) (Auto) 0.1 % Neutrophils # (Auto) 5.26 1.4-6.5 K/uL Lymphocytes # (Auto) 2.15 1.2-3.4 K/uL Monocytes # (Auto) 0.66 0.11-0.59 K/uL Eosinophils # (Auto) 0.19 0-0.5 K/uL Basophils # (Auto) 0.01 0-0.2 K/uL RDW Standard Deviation 46.2 36.4-46.3 fL RDW Coefficient of Variation 14.2 11.5-14.5 % Immature Granulocyte % (Auto) 0.4 % Immature Granulocyte # (Auto) 0.03 0.00-0.02 K/uL Red Blood Cell Morphology Unremarkable Prothrombin Time 11.8 9.0-12.0 SECONDS Prothromb Time International Ratio 1.1 0.9-1.1 Activated Partial Thromboplast Time 33.1 38.0 21.0-31.0 SECONDS Partial Thromboplastin Ratio 1.3 1.5 Sodium Level 134 136-145 mmol/L Potassium Level 4.2 3.5-5.1 mmol/L Chloride Level 97 98-107 mmol/L Carbon Dioxide Level 28 21-32 mmol/L Anion Gap 9.0 3-11 mmol/L Blood Urea Nitrogen 16 7-18 mg/dl Creatinine 1.10 0.60-1.20 mg/dl Est Creatinine Clear Calc Drug Dose 47.0 ml/min Estimated GFR () 60.6 Estimated GFR (Non- 52.3 BUN/Creatinine Ratio 14.7 10-20 Random Glucose 104 70-99 mg/dl Calcium Level 9.4 8.5-10.1 mg/dl Total Bilirubin 0.3 0.2-1 mg/dl Aspartate Amino Transf (AST/SGOT) 30 15-37 U/L Alanine Aminotransferase (ALT/SGPT) 35 12-78 U/L Alkaline Phosphatase 180 45-117 U/L Total Protein 7.4 6.4-8.2 gm/dl Albumin 2.4 3.4-5.0 gm/dl Globulin 5.0 2.5-4.0 gm/dl Albumin/Globulin Ratio 0.5 0.9-2 Microbiology Results 01/24/17 Blood Culture, Received Pending 01/24/17 Blood Culture, Received Pending 01/24/17 Gram Stain - Final, Resulted 01/24/17 Wound Culture, Resulted Pending
[2017-01-24] MEDS ORDERED: HEPARIN SOD (PORCINE) 1000 UNIT/ML 10 ML VIAL ONE (13:57)
[2017-01-24] MEDS ORDERED: HEPARIN SOD (PORCINE) 1000 UNIT/ML 10 ML VIAL IV ONE ×3 (14:04→14:30)
[2017-01-24] MEDS ORDERED: NITROGLYCERIN/D5W 100MCG/ML 20ML SYR ONE (14:44)
[2017-01-24] MEDS ORDERED: NITROGLYCERIN 5 MG/ML 10 ML VIAL IART ONE ×4 (14:58→15:24)
--- NOTE | 2017-01-24 15:00 | CARDIOLOGY CONSULTATION ---
DATE OF CONSULTATION: 01/23/2017 REASON FOR CONSULTATION: Peripheral artery disease. PRIMARY SONAR TECHNICIAN: Dr. Do HISTORY OF PRESENT ILLNESS: Mrs. 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 Left lower extremity wound initially began following a traumatic injury which required Achilles tendon reconstruction and tendon transfer in September 2015. Postprocedure course was complicated by wound infection and poor healing for which he has been followed by wound care team intermittently. She has also been followed by Dr. Anderson and underwent surgical skin grafting back in July. Prior to skin grafting patient underwent endovascular intervention to her left SFA in April of 2016. At that time underwent atherectomy with a jet stream device followed by balloon angioplasty with good angiographic result. Initially post skin grafting patient was doing well but more recently has had wound irrigation with infection, questionable osteomyelitis, and has been on p.o. intermittent IV antibiotics . More recently, she underwent a repeat vascular ultrasound as an outpatient which showed 75-99% stenosis in the left proximal PFA, 75-99% stenosis in the left mid SFA and 50-74% stenosis in the left distal SFA. Tibials were monophasic and diminished in both legs, left worse than the right. Yesterday, the patient noted that the wound seemed to be progressing and was noting more pain and so presented to the Emergency Department. PAST MEDICAL HISTORY: 1. 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 2. Chronic non-healing left lower extremity ulceration status post skin grafting, extended wound care. 3. Liposarcoma of the left hip status post radiation. 4. Hypertension. 5. Hyperlipidemia. 6. PFO without stroke. 7. Depression. ALLERGIES: CETIRIZINE AND VANCOMYCIN. SOCIAL HISTORY: Negative for tobacco, alcohol or drug use. She has a remote smoking history. HOME MEDICATIONS: Include; Xanax, amitriptyline, Augmentin, aspirin, atorvastatin, calcium carbonate, carvedilol 6.25 b.i.d., citalopram, ferrous sulfate, fish oil, lactobacillus, oxycodone, Bactrim and trazodone. REVIEW OF SYSTEMS: Ten point review of systems completed and otherwise negative as listed in HPI. There were no fevers, chills, or constitutional symptoms. PHYSICAL EXAMINATION: VITAL SIGNS: Temperature 36.8, pulse 70, blood pressure 116/66 and satting 94% on room air. GENERAL: The patient appears sleepy, comfortable and in no acute distress. HEENT: Her sclerae are anicteric. Oropharynx is clear. Mucous membranes are moist. NECK: Supple with no lymphadenopathy, no jugular venous distention. LUNGS: Clear to auscultation bilaterally. CARDIAC: She has a regular rate and rhythm with no appreciable murmurs, rubs or gallops. ABDOMEN: Soft, nontender, nondistended with positive bowel sounds. EXTREMITIES: She has a dressing in place over a large ulceration involving the posterior aspect of her leg. She has a large pressure heel ulceration with black eschar centrally and surrounding pink tissue. No significant surrounding induration or warmth. Nonpalpable DP pulse. She has mildly reduced capillary refill distally. Otherwise has diminished DP, PT pulses on the right and has intact radial pulses bilaterally. DATA: White blood cell count 8.3, hemoglobin 8.8, platelets of 346. INR 1.1. Sodium 134, potassium 4.2, BUN 16, creatinine of 1.1. LFTs were within normal limits. Therefore, a mildly elevated alkaline phosphatase at 180 and albumin of 2.4. Blood cultures and wound culture are pending. Lower extremity arterial duplex from yesterday showed bilateral atherosclerotic plaque and abnormal arterial waveforms. No clear high-grade stenosis was noted on that study. Lower extremity venous ultrasound showed no evidence of DVT in the left lower extremity. IMPRESSION AND PLAN: 1. Nonhealing left lower extremity ulceration. 2. Severe peripheral artery disease. 3. Hypertension. 4. Hyperlipidemia. 5. Anemia. Mrs. Estrada is here with progressive left lower extremity ulceration in the setting of likely recurrent superficial femoral artery disease as suggested by a recent lower extremity arterial duplex. Ulceration is significant and am concerned about potential for limb salvage. Recommend further involvement by Dr. Anderson who knows the patient well. For wound healing of possible future surgical procedures current tissue perfusion is likely in inadequate and recommend proceeding with repeat left lower extremity angiogram with likely revascularization. We discussed risks, benefits, alternatives to procedure and she is willing to proceed. We will plan on doing procedure later today via the right common femoral artery. In the short term, can hold heparin. Please keep n.p.o. No other changes to her cardiac regimen at this time. Further recommendations pending findings of angiography and possible intervention. Thank you for allowing us to participate in the care of this patient. Please contact with any questions. CHERI
--- NOTE | 2017-01-24 15:18 | Progress Note ---
Progress Note Date of Service January 24, 2017. Progress Note Received consult this afternoon re lower extremity wound. Patient is known to me from prior grafting, which initially was successful, broke down due to multiple factors. Presently managed by [facility]. Patient currently having angiogram. I will be away tomorrow but will try to see the wound on . Continue Santyl per wound center.
[2017-01-24] MEDS ORDERED: IODIXANOL (VISIPAQUE) 270 MG/ML 150ML IV ONE (15:35)
--- NOTE | 2017-01-24 16:06 | Procedure Note ---
Post-Mod Sedation Assessment General Date of Moderate Sedation January 24, 2017. Vital Signs: Vital Signs Past 12 Hours Date Time Temp Pulse Resp B/P Pulse Ox O2 Delivery O2 Flow Rate FiO2 01/24/17 16:02 77 18 105/45 98 Room Air 01/24/17 07:31 Room Air 01/24/17 07:08 36.8 70 16 116/66 94 Room Air Review - Discharge Criteria Vital Signs Stable: Yes Alert/Oriented/Conversant: Yes Returned to Baseline Mental St: Yes Nausea Absent/Minimal: Yes Pain/Discomfort/Absent/Minimal: Yes Normal/Baseline Respirations: Yes Active Bleeding?: No Pt Received D/C Instructions: N/A Prescriptions Given: None Specific Proced. D/C Criteria Distal Pulses Present (Cardiac: No Groin site assessed-Card Cath: Yes Voided Prior To Discharge: N/A Discharged Patients Adult Escort/Transportation: Yes
--- NOTE | 2017-01-24 16:33 | [facility] Operative Report ---
Operative Report Operative Date January 24, 2017. Pre-Operative Diagnosis Peripheral Artery Disease Non Healing Ulcer Post-Operative Diagnosis Peripheral Artery Disease Procedure(s) Performed - Bilateral lower extremity angiogram. - BALL POINT SPLITTER left SFA - Jetstream Atherectomy left SFA - BALL POINT SPLITTER with drug-coated (Lutonix) balloon. - Manual closure Right ASSEMBLER MOLDED FRAMES Surgeon Elvis Director Of Occupational Therapy Surgeon(s) Cook Estimated Blood Loss 22 Findings Angiography Findings: - left common iliac - luminal irregularities - left internal iliac artery - 70% proximal stenosis - left external iliac - luminal irregularities - left ASSEMBLER MOLDED FRAMES - luminal irregularities - left profunda femoris - 95% ostial stenosis - left SFA - tortuous proximally, calcified, diffuse disease with sequential lesions up to 95% stenosis - left popliteal - 40% proximal disease - left AT - minimal disease - left TP trunk - minimal disease - left peroneal - mild diffuse disease - left PT - occluded proximally. - right common iliac, external, internal iliac and ASSEMBLER MOLDED FRAMES without significant disease - right SFA with 60% mid segment stenosis Specimens None Drains None Anesthesia Moderate Complication(s) None Disposition PCU Indications Recurrent SFA disease. Non-healing lower extremity ulcer Description of Procedure Procedure: - Heparin to ACT > 200 - 7Fr 45cm Destination Sheath placed up and over to L ASSEMBLER MOLDED FRAMES - 0.35 glideadvantage placed in peroneal artery - BALL POINT SPLITTER of Left SFA with 4.0 x 80 mm balloon - 0.14 BareWire exchanged for glideadvantage - NAV6 embolic protection device placed in popliteal artery - Atherectomy of mid-distal SFA with 2.1 mm Jetstream XC. 2 passes with blades down, 1 pass with blades up. Post atherectomy nitroglycerin administered for spasm. - BALL POINT SPLITTER of SFA with 5.0 x 150 mm Lutonix balloon. - Post BALL POINT SPLITTER of SFA good angiographic result with brisk flow and minimal residual dissection - Filter removed with distal 2 vessel run-off. Summary: - Severe 95% restenosis of left SFA disease - Patent distal 2 vessel run-off (occluded posterior tibial) - Successful Jetstream Atherectomy and BALL POINT SPLITTER of left SFA with drug-eluting balloon (Lutonix) Recomendations: - Transfer to PCU for continued monitoring - DAPT with aspirin/plavix for 1 month - Continued wound management with wound care/plastic surgery - Non-invasive surveillance imaging/ABIs in 1 month I attest to the content of the Intraoperative Record and any orders documented therein. Any exceptions are noted below.
[2017-01-24] MEDS: OXYCODONE HCL IR 5 MG TAB (IMMEDIATE RELEASE) PO PRN (18:24)
[2017-01-24] MEDS: COLLAGENASE OINT 30 GM TUBE EXT SCH (19:09)
[2017-01-24] MEDS: CLOPIDOGREL BISULFATE 75 MG TAB PO SCH (19:24)
[2017-01-24] MEDS ORDERED: ATORVASTATIN 20 MG TAB PO SCH (21:00)
[2017-01-25] VITALS (8 sets, daily range): BP systolic 90–105; BP diastolic 51–65; PULSE 62–75; TEMP 36.7–37.5; O2SAT 96–98
[2017-01-25] MEDS: DAPTOmycin IV 275 MG in SODIUM CHLORIDE 0.9% 50ML 50 ML IV SCH (01:36)
[2017-01-25] MEDS: PIPERACILL/TAZOBAC IV 3.375 GM in DEXTROSE 5% 100ML IV SCH ×3 (02:16→17:46)
[2017-01-25] MEDS: CARVEDILOL 6.25 MG TAB PO SCH ×2 (07:54→20:56)
[2017-01-25] MEDS: LACTOBACILLUS ACIDOPHILUS (FLORANEX) TAB PO SCH ×2 (07:54→20:56)
[2017-01-25] MEDS: CITALOPRAM 20 MG TAB PO SCH (07:55)
[2017-01-25] MEDS: ASPIRIN 81 MG ECTAB PO SCH (07:55)
[2017-01-25] MEDS: FERROUS SULFATE 325 MG TAB PO SCH ×2 (07:55→20:56)
[2017-01-25 08:05] LABS: PARTIAL THROMBOPLASTIN RATIO 1.2
[2017-01-25] MEDS: OXYCODONE HCL 20 MG TABCR (OXYCONTIN) PO SCH ×2 (08:27→20:55)
[2017-01-25] MEDS: CLOPIDOGREL BISULFATE 75 MG TAB PO SCH (08:27)
[2017-01-25 08:44] LABS: HEMATOCRIT 24.2 % (37-47); MEAN CELL VOLUME 90.3 fL (80-100); MEAN CORPUSCULAR HEMOGLOBIN 28.7 pg (25-34); MEAN CORPUSCULAR HGB CONC 31.8 g/dl (32-36); MEAN PLATELET VOLUME 8.8 fL (7.4-10.4); PLATELET COUNT 278 K/uL (130-400); RED BLOOD COUNT 2.68 M/uL (4.2-5.4); WHITE BLOOD COUNT 5.98 K/uL (4.8-10.8)
[2017-01-25 09:14] LABS: BASO % 0.2 %; BASO ABS # 0.01 K/uL (0-0.2); COMPLETE YES; EOS % 2.8 %; IG% 0.7 %; LYMPH % 16.1 %; LYMPH ABS # 0.96 K/uL (1.2-3.4); MONO % 8.2 %
[2017-01-25 09:28] LABS: BUN/CREATININE RATIO 15.6 (10-20); CALCIUM 8.3 mg/dl (8.5-10.1); CREATININE 0.46 mg/dl (0.60-1.20); POTASSIUM 3.9 mmol/L (3.5-5.1)
--- NOTE | 2017-01-25 11:30 | Infectious Disease Progress Nt ---
Progress Note Date of Service January 25, 2017. Subjective Pt evaluation today including: conversation w/ patient, physical exam, chart review, lab review, review of studies, review of inpatient medication list Patients WBC count this morning was 5.98. Hgb was 7.7. Creatinine was 0.46. Wound culture now growing Probable Pseudomonas species. Blood cultures showing no growth. She is very lethargic this morning. She continues on Daptomycin and Zosyn and is tolerating these well. She continues to complain of pain in the left lower extremity. No N/V/D. All Other Systems: Reviewed and Negative Medications Current Inpatient Medications Medications (Trade) Dose Ordered Sig/Connor Route Start Time Stop Time Status Last Admin Dose Admin Acetaminophen (Tylenol Tab) 650 mg Q4H PRN PO 01/23/17 23:30 02/22/17 23:29 Ondansetron HCl (Zofran Inj) 4 mg Q6H PRN IV 01/23/17 23:30 02/22/17 23:29 Daptomycin (Consult) 1 ea DAILY PRN N/A 01/24/17 00:08 02/23/17 00:07 Alprazolam (Xanax Tab) 0.5 mg TID PRN PO 01/24/17 00:15 02/23/17 00:14 Amitriptyline HCl (Elavil Tab) 75 mg HS PO 01/24/17 21:00 02/23/17 20:59 01/24/17 20:41 75 MG Aspirin (Ecotrin Tab) 81 mg QAM PO 01/24/17 09:00 02/23/17 08:59 01/25/17 07:55 81 MG Carvedilol (Coreg Tab) 6.25 mg BID PO 01/24/17 09:00 02/23/17 08:59 01/25/17 07:54 6.25 MG Citalopram Hydrobromide (celeXA TAB) 20 mg DAILY PO 01/24/17 09:00 02/23/17 08:59 01/25/17 07:55 20 MG Ferrous Sulfate (Feosol Tab) 325 mg BID PO 01/24/17 09:00 02/23/17 08:59 01/25/17 07:55 325 MG Lactobacillus Acidophilus (Floranex Tab) 2 tab BID PO 01/24/17 09:00 02/23/17 08:59 01/25/17 07:54 2 TAB Oxycodone HCl (Oxycontin Tab) 60 mg Q12 PO 01/24/17 09:00 02/07/17 08:59 01/25/17 08:27 60 MG Oxycodone HCl (Roxicodone Immediate Rel Tab) 5 mg Q4H PRN PO 01/24/17 00:15 02/07/17 00:14 01/24/17 18:24 5 MG Trazodone HCl 50 mg 50 mg HS PO 01/24/17 21:00 02/23/17 20:59 01/24/17 20:40 50 MG Daptomycin 275 mg/ Sodium Chloride 55.5 ml @ 120 mls/hr DAILY@0200 IV 01/24/17 02:00 02/03/17 01:59 01/25/17 01:36 120 MLS/HR Piperacillin Sod/ Tazobactam Sod/ Dextrose (Zosyn Iv/D5 100ml) 115 ml @ 28.75 mls/ hr Q8H IV 01/24/17 06:00 02/03/17 05:59 01/25/17 09:35 28.75 MLS/HR Piperacillin Sod/ Tazobactam Sod (Consult) 1 ea UD PRN N/A 01/24/17 01:30 02/23/17 01:29 Collagenase (Santyl Oint) 1 appln DAILY EXT 01/25/17 09:00 02/24/17 08:59 01/24/17 19:09 1 APPLN Clopidogrel Bisulfate (plAVix TAB) 75 mg QAM PO 01/24/17 16:30 02/23/17 16:29 01/25/17 08:27 75 MG Objective Vital Signs Date Time Temp Pulse Resp B/P Pulse Ox O2 Delivery O2 Flow Rate FiO2 01/25/17 08:00 Nasal Cannula 2.0 01/25/17 07:52 37.0 65 16 100/63 97 Room Air 01/25/17 04:26 36.7 70 15 95/58 97 Nasal Cannula 2.0 01/25/17 04:02 Nasal Cannula 2.0 01/25/17 00:02 Nasal Cannula 2.0 01/24/17 23:51 37.1 75 16 106/55 96 Nasal Cannula 2.0 01/24/17 20:38 37.9 84 125/61 01/24/17 20:00 98 Nasal Cannula 2.0 01/24/17 19:02 81 18 117/66 100 Nasal Cannula 2.0 01/24/17 18:57 37.7 82 18 115/53 98 Room Air 01/24/17 18:02 86 16 117/65 98 Nasal Cannula 2.0 01/24/17 17:02 88 18 109/64 99 Nasal Cannula 2.0 01/24/17 16:50 36.8 77 18 98 01/24/17 16:32 37.3 99 18 112/62 96 Nasal Cannula 2.0 01/24/17 16:02 77 18 105/45 98 Room Air Physical Exam General Appearance: WD/WN, no apparent distress Eyes: normal inspection, sclerae normal ENT: hearing grossly normal Neck: supple, trachea midline Respiratory/Chest: no respiratory distress, no accessory muscle use Cardiovascular: + pertinent finding (regular rate) Abdomen: non tender, soft Extremities: + pertinent finding (left lower extremity with dressing in place. ) Neurologic/Psychiatric: + disoriented Skin: warm/dry, no rash, + pertinent finding (Large left lower extremity wound with surround erythema and drainage) Laboratory Results RUN DATE: 01/25/17 [facility] LAB PAGE 1 RUN TIME: 0835 Specimen Inquiry PATIENT: CLINTASHISHROXANNE Sousa LOC: [place] # : [id number] AGE/SX: 67/F ROOM: [facility] REG : 01/23/[address]: Berna Gloria M.D. : 1950 BED: 1 DIS : STATUS: ADM IN TLOC: SPEC #: [id number] JANE: 01/24/17 STATUS: RES REQ #: [id number] RECD: 01/24/[address]: Braden Martínez MD SOURCE: ULCER ENTR: 01/24/[address]: Shubham Timmons MD SPDC: LEG LL Berna Gloria M.D. Jones, Christopher R., MD ORDERED: SURF WNChris CU/SMR COMMENTS: Has Specimen Been Obtained/Collected? Y Procedure Result Verified Site GRAM STAIN Final 01/24/17 RESULT MODERATE GRAM NEGATIVE BACILLI RARE GRAM POSITIVE COCCI FEW EPITHELIAL CELLS NO WBCs SEEN SURFACE WOUND CULTURE Preliminary 01/25/17 Organism 1 PROBABLE PSEUDOMONAS SPECIES QUANITY MANY SENS SENSITIVITY TO FOLLOW Item Value Date Time Gram Stain - Final Resulted 01/24/17 0135 Ulcer Leg Lower Left Blood Culture - Preliminary Resulted 01/24/17 0034 Blood NO GROWTH TO DATE. Blood Culture - Preliminary Resulted 01/24/17 003 Blood NO GROWTH TO DATE. Last 24 Hours Test 01/24/17 14:23 01/25/17 07:45 Kaolin Activated Coagulation Time 188 SECONDS White Blood Count 5.98 K/uL Red Blood Count 2.68 M/uL Hemoglobin 7.7 g/dL Hematocrit 24.2 % Mean Corpuscular Volume 90.3 fL Mean Corpuscular Hemoglobin 28.7 pg Mean Corpuscular Hemoglobin Concent 31.8 g/dl Platelet Count 278 K/uL Mean Platelet Volume 8.8 fL Neutrophils (%) (Auto) 72.0 % Lymphocytes (%) (Auto) 16.1 % Monocytes (%) (Auto) 8.2 % Eosinophils (%) (Auto) 2.8 % Basophils (%) (Auto) 0.2 % Neutrophils # (Auto) 4.31 K/uL Lymphocytes # (Auto) 0.96 K/uL Monocytes # (Auto) 0.49 K/uL Eosinophils # (Auto) 0.17 K/uL Basophils # (Auto) 0.01 K/uL RDW Standard Deviation 47.9 fL RDW Coefficient of Variation 14.3 % Immature Granulocyte % (Auto) 0.7 % Immature Granulocyte # (Auto) 0.04 K/uL Activated Partial Thromboplast Time 31.9 SECONDS Partial Thromboplastin Ratio 1.2 Sodium Level 138 mmol/L Potassium Level 3.9 mmol/L Chloride Level 105 mmol/L Carbon Dioxide Level 25 mmol/L Anion Gap 8.0 mmol/L Blood Urea Nitrogen 7 mg/dl Creatinine 0.46 mg/dl Est Creatinine Clear Calc Drug Dose 114.3 ml/min Estimated GFR () 120.1 Estimated GFR (Non- 103.7 BUN/Creatinine Ratio 15.6 Random Glucose 84 mg/dl Calcium Level 8.3 mg/dl Assessment and Plan Patient with worsening of chronic left lower extremity ulceration in the setting of PAD and history of polymicrobial infection of the wound now growing Pseudomonas species from wound culture. She is currently on IV Zosyn and Daptomycin which is appropriate pending final cultures and with history of polymicrobial infection. She likely will need multiple days or more of IV therapy and wound debridement. We will continue to follow. PROVIDER ADDENDUM: Pt. reviewed with Ms. Arndt. Agree with above assessment.
--- NOTE | 2017-01-25 11:47 | Progress Note ---
Internal Med Progress Note Date of Service: January 25, 2017. Provider Documentation: SUBJECTIVE: The patient was seen and examined A little drowsy today Complains of some pain in left leg No CP,Palpitation,SOB S/P::Successful Jetstream Atherectomy and RISK CONTROL SPECIALIST of left SFA with drug-eluting balloon (Lutonix) OBJECTIVE: Vital Signs-as noted below Exam: General-No distress at rest Eyes-normal ENT-normal Neck-supple Lungs-clear to ausucltate bilaterally Heart-Regular,no murmur Abdomen-Benign,no masses,bowel sound present Extremities-Right leg -minimal edema Left Leg is bandaged,no sensation and no movement of the left foot/leg Neuro-AAOx3 Lab data as noted below. ASSESSMENT & PLAN: Chronic Wound Left Lower Extremity with Cellulitis H/O MRSA and chronic use of antibiotic No signs of sepsis Blood/Wound cultures-pending Empirically started on Daptomycin and Zosyn Consult ID-appreciate input Wound care consulted -appreciate Input.Continue Santyl dressing Plastic Surgery consulted Doppler US: No DVT Continue current antibiotics PAD Presented with rest pain Arterial Doppler:no sonographic evidence of high-grade stenosis or focal vessel cut off Start IV Heparin ggt Consult Vascular surgery -appreciate input Will go for arterial procedure today Continue Aspirin S/P Successful Jetstream Atherectomy and RISK CONTROL SPECIALIST of left SFA with drug-eluting balloon (Lutonix) Continue Aspirin and Plavix for 1 month HTN Stable continue Coreg BID HLD Hold statin while on daptomycin DEPRESSION Stable Continue home meds H/O LYMPHOSARCOMA stable DVT PX: On Heparin CODE STATUS: FULL CODE DISPOSITION Awaited Vital Signs: Date Time Temp Pulse Resp B/P Pulse Ox O2 Delivery O2 Flow Rate FiO2 01/25/17 08:00 Nasal Cannula 2.0 01/25/17 07:52 37.0 65 16 100/63 97 Room Air 01/25/17 04:26 36.7 70 15 95/58 97 Nasal Cannula 2.0 01/25/17 04:02 Nasal Cannula 2.0 01/25/17 00:02 Nasal Cannula 2.0 01/24/17 23:51 37.1 75 16 106/55 96 Nasal Cannula 2.0 01/24/17 20:38 37.9 84 125/61 01/24/17 20:00 98 Nasal Cannula 2.0 01/24/17 19:02 81 18 117/66 100 Nasal Cannula 2.0 01/24/17 18:57 37.7 82 18 115/53 98 Room Air 01/24/17 18:02 86 16 117/65 98 Nasal Cannula 2.0 01/24/17 17:02 88 18 109/64 99 Nasal Cannula 2.0 01/24/17 16:50 36.8 77 18 98 01/24/17 16:32 37.3 99 18 112/62 96 Nasal Cannula 2.0 01/24/17 16:02 77 18 105/45 98 Room Air Lab Results: Results Past 24 Hours Test 01/24/17 14:23 01/25/17 07:45 Range/Units Kaolin Activated Coagulation Time 188 94-140 SECONDS White Blood Count 5.98 4.8-10.8 K/uL Red Blood Count 2.68 4.2-5.4 M/uL Hemoglobin 7.7 12.0-16.0 g/dL Hematocrit 24.2 37-47 % Mean Corpuscular Volume 90.3 80-100 fL Mean Corpuscular Hemoglobin 28.7 25-34 pg Mean Corpuscular Hemoglobin Concent 31.8 32-36 g/dl Platelet Count 278 130-400 K/uL Mean Platelet Volume 8.8 7.4-10.4 fL Neutrophils (%) (Auto) 72.0 % Lymphocytes (%) (Auto) 16.1 % Monocytes (%) (Auto) 8.2 % Eosinophils (%) (Auto) 2.8 % Basophils (%) (Auto) 0.2 % Neutrophils # (Auto) 4.31 1.4-6.5 K/uL Lymphocytes # (Auto) 0.96 1.2-3.4 K/uL Monocytes # (Auto) 0.49 0.11-0.59 K/uL Eosinophils # (Auto) 0.17 0-0.5 K/uL Basophils # (Auto) 0.01 0-0.2 K/uL RDW Standard Deviation 47.9 36.4-46.3 fL RDW Coefficient of Variation 14.3 11.5-14.5 % Immature Granulocyte % (Auto) 0.7 % Immature Granulocyte # (Auto) 0.04 0.00-0.02 K/uL Activated Partial Thromboplast Time 31.9 21.0-31.0 SECONDS Partial Thromboplastin Ratio 1.2 Sodium Level 138 136-145 mmol/L Potassium Level 3.9 3.5-5.1 mmol/L Chloride Level 105 98-107 mmol/L Carbon Dioxide Level 25 21-32 mmol/L Anion Gap 8.0 3-11 mmol/L Blood Urea Nitrogen 7 7-18 mg/dl Creatinine 0.46 0.60-1.20 mg/dl Est Creatinine Clear Calc Drug Dose 114.3 ml/min Estimated GFR () 120.1 Estimated GFR (Non- 103.7 BUN/Creatinine Ratio 15.6 10-20 Random Glucose 84 70-99 mg/dl Calcium Level 8.3 8.5-10.1 mg/dl
[2017-01-25] MEDS: TRAZODONE HCL 50 MG TAB PO SCH (22:27)
[2017-01-25] MEDS: AMITRIPTYLINE HCL 25 MG TAB PO SCH (22:29)
[2017-01-26] VITALS (11 sets, daily range): BP systolic 90–108; BP diastolic 47–61; PULSE 66–80; TEMP 36.6–37.4; O2SAT 92–98
[2017-01-26] MEDS: DAPTOmycin IV 275 MG in SODIUM CHLORIDE 0.9% 50ML 50 ML IV SCH (01:36)
[2017-01-26] MEDS: PIPERACILL/TAZOBAC IV 3.375 GM in DEXTROSE 5% 100ML IV SCH ×3 (02:10→17:58)
[2017-01-26 06:45] LABS: PARTIAL THROMBOPLASTIN RATIO 1.3
[2017-01-26 07:10] LABS: CREATININE 0.44 mg/dl (0.60-1.20)
[2017-01-26] MEDS: COLLAGENASE OINT 30 GM TUBE EXT SCH ×2 (09:00→09:09)
[2017-01-26] MEDS ORDERED: NURSING VERBAL MED ORDER ONE (09:00)
[2017-01-26] MEDS: ASPIRIN 81 MG ECTAB PO SCH (09:05)
[2017-01-26] MEDS: CLOPIDOGREL BISULFATE 75 MG TAB PO SCH (09:05)
[2017-01-26] MEDS: CARVEDILOL 6.25 MG TAB PO SCH ×2 (09:05→21:34)
[2017-01-26] MEDS: LACTOBACILLUS ACIDOPHILUS (FLORANEX) TAB PO SCH ×2 (09:06→21:34)
[2017-01-26] MEDS: CITALOPRAM 20 MG TAB PO SCH (09:06)
[2017-01-26] MEDS: FERROUS SULFATE 325 MG TAB PO SCH ×2 (09:06→21:35)
[2017-01-26] MEDS: OXYCODONE HCL 20 MG TABCR (OXYCONTIN) PO SCH ×2 (09:19→21:33)
--- NOTE | 2017-01-26 10:03 | Cardiology Follow-Up ---
Subjective Subjective Date of Service: January 26, 2017. Pt evaluation today including: conversation w/ patient, physical exam, chart review, lab review, review of studies, review of inpatient medication list Additional Details: Report improved pain in left lower extremity and right groin. Still very tired. No chest pain, palpitations. Tele reviewed - there was concern for possible AF but appears to sinus with PACs Problem List Medical Problems: (1) Acute kidney injury Status: Acute (2) Anemia Status: Acute (3) Failure of outpatient treatment Status: Acute (4) Gangrene of lower extremity Status: Acute (5) Left leg cellulitis Status: Acute (6) Leg pain, left Status: Acute (7) Occlusion of artery of leg Status: Acute (8) Sepsis Status: Acute Review of Systems Constitutional: + fatigue ENT: No hearing loss Respiratory: No cough, No sputum Cardiac: No chest pain Abdomen: No nausea, No pain Neurologic: + problem reported Heme: No abnormal bleeding/bruising Endo: + fatigue Skin: + color change, + new/changing skin lesions Objective Vital Signs Last Vital Signs Documentation Date Time Temp Pulse Resp B/P Pulse Ox O2 Delivery O2 Flow Rate FiO2 01/26/17 04:00 Nasal Cannula 2.0 01/26/17 03:32 37.1 72 21 108/59 97 Physical Exam: General Appearance: no apparent distress ENT: hearing grossly normal Neck: supple, trachea midline Respiratory/Chest: no respiratory distress, no accessory muscle use Cardiovascular: + systolic murmur, + pertinent finding (right groin access site , minimally tender, no ecchymosis/hematoma or bruit) Abdomen: non tender, soft Extremities: + pertinent finding (left lower extremity with dressing in place. ) Skin: warm/dry, no rash, + pertinent finding (Large left lower extremity wound with surround erythema and drainage) Lymphatic: no adenopathy Assessment and Plan 1. Nonhealing lower extremity wound 2. PAD with severe recurrent SFA disease s/p atherectomy and MARKETING SENIOR RECRUITER with YANI 5/2 3. Wound infection on IV antibiotics 4. Anemia 5. Frequent PACs -- no evidence of AF Stable post procedure. No access site complications. Renal function stable. -- continue ASA/Plavix for 1 month as blood counts allow -- continue current antihypertensives. -- resume statin when able -- Repeat surveillance LE arterial imaging in 1 month. Medications: Current Inpatient Medications Medications (Trade) Dose Ordered Sig/Connor Route Start Time Stop Time Status Last Admin Dose Admin Acetaminophen (Tylenol Tab) 650 mg Q4H PRN PO 01/23/17 23:30 02/22/17 23:29 Ondansetron HCl (Zofran Inj) 4 mg Q6H PRN IV 01/23/17 23:30 02/22/17 23:29 Daptomycin (Consult) 1 ea DAILY PRN N/A 01/24/17 00:08 02/23/17 00:07 Alprazolam (Xanax Tab) 0.5 mg TID PRN PO 01/24/17 00:15 02/23/17 00:14 Amitriptyline HCl (Elavil Tab) 75 mg HS PO 01/24/17 21:00 02/23/17 20:59 01/25/17 22:29 75 MG Aspirin (Ecotrin Tab) 81 mg QAM PO 01/24/17 09:00 02/23/17 08:59 01/26/17 09:05 81 MG Carvedilol (Coreg Tab) 6.25 mg BID PO 01/24/17 09:00 02/23/17 08:59 01/26/17 09:05 6.25 MG Citalopram Hydrobromide (celeXA TAB) 20 mg DAILY PO 01/24/17 09:00 02/23/17 08:59 01/26/17 09:06 20 MG Ferrous Sulfate (Feosol Tab) 325 mg BID PO 01/24/17 09:00 02/23/17 08:59 01/26/17 09:06 325 MG Lactobacillus Acidophilus (Floranex Tab) 2 tab BID PO 01/24/17 09:00 02/23/17 08:59 01/26/17 09:06 2 TAB Oxycodone HCl (Oxycontin Tab) 60 mg Q12 PO 01/24/17 09:00 02/07/17 08:59 01/26/17 09:19 60 MG Oxycodone HCl (Roxicodone Immediate Rel Tab) 5 mg Q4H PRN PO 01/24/17 00:15 02/07/17 00:14 01/24/17 18:24 5 MG Trazodone HCl 50 mg 50 mg HS PO 01/24/17 21:00 02/23/17 20:59 01/25/17 22:27 50 MG Daptomycin 275 mg/ Sodium Chloride 55.5 ml @ 120 mls/hr DAILY@0200 IV 01/24/17 02:00 02/03/17 01:59 01/26/17 01:36 120 MLS/HR Piperacillin Sod/ Tazobactam Sod/ Dextrose (Zosyn Iv/D5 100ml) 115 ml @ 28.75 mls/ hr Q8H IV 01/24/17 06:00 02/03/17 05:59 01/26/17 09:19 28.75 MLS/HR Piperacillin Sod/ Tazobactam Sod (Consult) 1 ea UD PRN N/A 01/24/17 01:30 02/23/17 01:29 Collagenase (Santyl Oint) 1 appln DAILY EXT 01/25/17 09:00 02/24/17 08:59 01/26/17 09:09 1 APPLN Clopidogrel Bisulfate (plAVix TAB) 75 mg QAM PO 01/24/17 16:30 02/23/17 16:29 01/26/17 09:05 75 MG Acetic Acid (Acetic Acid 0.25% Irrig Soln) 1 appln Q8 IR 01/26/17 14:00 02/25/17 13:59 Lab Results: 01/26/17 06:28 Test 01/26/17 06:28 Activated Partial Thromboplast Time 33.5 SECONDS (21.0-31.0) Partial Thromboplastin Ratio 1.3 Est Creatinine Clear Calc Drug Dose 119.8 ml/min Estimated GFR () 121.9 Estimated GFR (Non- 105.2
--- NOTE | 2017-01-26 12:48 | Pre-Operative Consultation ---
History General Date of Service: January 26, 2017. (Andreina Gilbert PA-C) HPI HPI: The patient is a 67 year old female being seen in consultation for non-healing wound left lower extremity. She is known to our service since April 2016 when she was first seen for this problem. 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 She developed foot drop as a consequence and later had trauma causing rupture of her Achilles tendon. In Sep she underwent Achilles tendon reconstruction with tendon transfer. She developed post-operative pressure ulcer and wound in her medial and posterior LLE. She was treated with wound care for 7 months and then had revascularization in April [address] Leal. She was inpatient with a veroflo vac which gave great response. In May of 2016, she was treated as an outpatient with HBO and wound vac. We were seeing the patient regularly for consideration of skin graft. Due to patient's chronic anemia, she underwent transfusion. In July her wound was looking worse and culture taken revealed staph and corynebacterium. She was admitted to [facility] and treated with IV antibiotics and irrigating wound vac. She was found to have MRSA, so continued to stay inpatient for treatment with IV antibiotics and irrigating wound vac in preparation for skin graft. On 08/11/16 she underwent irrigation and debridement of LLE wound with placement of split thickness skin graft with Dr. Anderson. The surgery went well and there was evidence of the graft taking. In September, we saw her again for left heel ulcer and new medial LLE wound. She was admitted again for IV antibiotics. She has been following with wound care and infectious disease. She returned to [facility] on 01/23 with concerns of her wound. She underwent another revascularization procedure with Dr. Leal on 01/24. She is also now found to have pseudomonas growing in her wound. (Andreina Gilbert PA-C) Risk Assessment Daily beta wendi use?: No (Andreina Gilbert PA-C) Problem List Medical Problems: (1) Acute kidney injury Status: Acute (2) Anemia Status: Acute (3) Failure of outpatient treatment Status: Acute (4) Gangrene of lower extremity Status: Acute (5) Left leg cellulitis Status: Acute (6) Leg pain, left Status: Acute (7) Occlusion of artery of leg Status: Acute (8) Sepsis Status: Acute (Andreina Gilbert PA-C) Medical & Surgical History Past Medical History: anxiety, depression, high cholesterol, hypertension, other Past Surgical History: , orthopedic surgery (achilles tendon reconstruction with tendon transder- Sep 2015), tonsillectomy (Andreina Gilbert PA-C) Family History Family History: heart disease, PE (Andreina Gilbert PA-C) Social History Hx Tobacco Use In Past Year?: No Smoking Status: Former Smoker Alcohol: none Drug Use: none Marital status: Housing status: lives with family Occupation status: retired (Andreina Gilbert PA-C) Immunizations Have You Had Influenza Vaccine: Yes Date Of Influenza Vaccine: Apr 19, 2013 Have You Had Tetanus Vaccine: Unknown History of Pneumococcal: No History Hepatitis B Vaccine: Unknown (Andreina Gilbert PA-C) History of MDRO History of MDRO?: MRSA (Andreina Gilbert PA-C) Allergies Allergies: Coded Allergies: Vancomycin (Verified Adverse Reaction, Severe, WORSENING RENAL FUNCTION, ) Patient prescribed both vancomycin and pip/tazo therapy. Patient's vancomycin trough level for the 800mg IV q12h dosing came back subtherapeutic at 9.7mcg/ml. Vancomycin dose was changed to 1400mg IV q12h to provide an increase in trough and get a therapeutic level. However, trough level returned back on this newer dose as 19.9mcg/ml. Deemed dose to having caused a higher goal trough and determined that a lower dose of 1000mg IV q12h was needed to lower trough into goal range. However, patient's renal function had worsened on 08/02 from 0.46mg/dl for SCr on 08/01 to a SCr of 1.8mcg/ml. This could have been due to the vancomycin dosing or the combination of the patient being on vancomycin and pip/zosyn. At this point ID recommended to switch patient to daptomycin and continue on the piperacillin/tazobactam. Dr. Bagley was made aware of the situation. Renal function was to continue to be monitored as well as the vancomycin levels. Cetirizine (Verified Adverse Reaction, Unknown, BOWEL CRAMPS, 12/20/16) Medications Current Inpatient Medications Current Inpatient Medications Medications (Trade) Dose Ordered Sig/Connor Route Start Time Stop Time Status Last Admin Dose Admin Acetaminophen (Tylenol Tab) 650 mg Q4H PRN PO 01/23/17 23:30 02/22/17 23:29 Ondansetron HCl (Zofran Inj) 4 mg Q6H PRN IV 01/23/17 23:30 02/22/17 23:29 Daptomycin (Consult) 1 ea DAILY PRN N/A 01/24/17 00:08 02/23/17 00:07 Alprazolam (Xanax Tab) 0.5 mg TID PRN PO 01/24/17 00:15 02/23/17 00:14 Amitriptyline HCl (Elavil Tab) 75 mg HS PO 01/24/17 21:00 02/23/17 20:59 01/25/17 22:29 75 MG Aspirin (Ecotrin Tab) 81 mg QAM PO 01/24/17 09:00 02/23/17 08:59 01/26/17 09:05 81 MG Carvedilol (Coreg Tab) 6.25 mg BID PO 01/24/17 09:00 02/23/17 08:59 01/26/17 09:05 6.25 MG Citalopram Hydrobromide (celeXA TAB) 20 mg DAILY PO 01/24/17 09:00 02/23/17 08:59 01/26/17 09:06 20 MG Ferrous Sulfate (Feosol Tab) 325 mg BID PO 01/24/17 09:00 02/23/17 08:59 01/26/17 09:06 325 MG Lactobacillus Acidophilus (Floranex Tab) 2 tab BID PO 01/24/17 09:00 02/23/17 08:59 01/26/17 09:06 2 TAB Oxycodone HCl (Oxycontin Tab) 60 mg Q12 PO 01/24/17 09:00 02/07/17 08:59 01/26/17 09:19 60 MG Oxycodone HCl (Roxicodone Immediate Rel Tab) 5 mg Q4H PRN PO 01/24/17 00:15 02/07/17 00:14 01/24/17 18:24 5 MG Trazodone HCl 50 mg 50 mg HS PO 01/24/17 21:00 6/1/17 20:59 01/25/17 22:27 50 MG Daptomycin 275 mg/ Sodium Chloride 55.5 ml @ 120 mls/hr DAILY@0200 IV 01/24/17 02:00 02/03/17 01:59 01/26/17 01:36 120 MLS/HR Piperacillin Sod/ Tazobactam Sod/ Dextrose (Zosyn Iv/D5 100ml) 115 ml @ 28.75 mls/ hr Q8H IV 01/24/17 06:00 02/03/17 05:59 01/26/17 09:19 28.75 MLS/HR Piperacillin Sod/ Tazobactam Sod (Consult) 1 ea UD PRN N/A 01/24/17 01:30 02/23/17 01:29 Collagenase (Santyl Oint) 1 appln DAILY EXT 01/25/17 09:00 02/24/17 08:59 01/26/17 09:09 1 APPLN Clopidogrel Bisulfate (plAVix TAB) 75 mg QAM PO 01/24/17 16:30 02/23/17 16:29 01/26/17 09:05 75 MG Acetic Acid (Acetic Acid 0.25% Irrig Soln) 1 appln Q8 IR 01/26/17 14:00 02/25/17 13:59 (Andreina Gilbert PA-C) Review of Systems Review of Systems Constitutional: no symptoms reported Eyes: reports: no symptoms ENT: reports: no symptoms reported Cardiovascular: reports: no symptoms reported Respiratory: reports: no symptoms reported Gastrointestinal: no symptoms reported Integumentary: see HPI (Andreina Gilbert PA-C) Physical Exam Physical Exam General Appearance: + WD/WN, No distress Respiratory: No accessory muscle use, No respiratory distress Extremities: + other (LLE wound with sweet-smelling odor consistent with pseudomonas, mutliple areas of black, necrotic tissue) (Andreina Gilbert PA-C) Diagnostics Labs Labs Results Past 24 Hours Test 01/26/17 06:28 Range/Units Activated Partial Thromboplast Time 33.5 21.0-31.0 SECONDS Partial Thromboplastin Ratio 1.3 Creatinine 0.44 0.60-1.20 mg/dl Est Creatinine Clear Calc Drug Dose 119.8 ml/min Estimated GFR () 121.9 Estimated GFR (Non- 105.2 (Andreina Gilbert PA-C) Lab Interpretation Lab Interpretation: labs were reviewed (Andreina Gilbert PA-C) Impression Assessment and Plan Assessment and Plan Non-healing LLE wound, chronic anemia 1. Split-thickness skin graft placed Jul 2016 now with diffuse non-healed and infected areas. 2. chronic anemia Patient was seen and examined with Dr. Anderson, and she will make recommendations for further wound care. Due to recent diagnosis of pseudomonas infection, will start with acetic acid wet-dry dressings for at least 72 hours. May consider irrigating wound vac after this. (Andreina Gilbert PA-C) Assessment and Plan I personally saw and examined this patient with Ms. Gilbert; agree with exam, assessment and plan. I first became involved with this patient in 04/2016, but wound had been present for several months prior. Wound was treated with irrigating VAC and local wound care. She was admitted prior to undergoing LLE STSG in September, which had near complete take immediately following surgery. Unfortunately, when she is at home she seems to repeatedly break down the area due to pressure, neuropathy, and PAD. Today she has LLE with large posterior calf wound, with odor associated with pseudomonas, peripheral erythema, most of the graft has been lost. No role for operative debridement or grafting at this point in time due to active pseudomonal infection. Recommend acetic acid dressings and IV abx for now. When discharged, she may follow up at the wound care center with Dr. Sutton. (Norma Anderson MD)
[2017-01-26] MEDS: ACETIC ACID 0.25% IRRIG SOLN 1000 ML PLCT IR SCH ×2 (14:54→22:15)
--- NOTE | 2017-01-26 14:55 | Progress Note ---
Internal Med Progress Note Date of Service: January 26, 2017. Provider Documentation: SUBJECTIVE: The patient was seen and examined Remains drowsy but no distress Complains of some pain in left leg No CP,Palpitation,SOB S/P::Successful Jetstream Atherectomy and MEDICAL OFFICE REPRESENTATIVE of left SFA with drug-eluting balloon (Lutonix) on 01/24/17 OBJECTIVE: Vital Signs-as noted below Exam: General-No distress at rest Eyes-normal ENT-normal Neck-supple Lungs-clear to ausucltate bilaterally Heart-Regular,no murmur Abdomen-Benign,no masses,bowel sound present Extremities-Right leg -minimal edema Left Leg is bandaged,no sensation and no movement of the left foot/leg Neuro-[id number] Lab data as noted below. ASSESSMENT & PLAN: Chronic Wound Left Lower Extremity with Cellulitis H/O MRSA and chronic use of antibiotic No signs of sepsis Blood/Wound cultures-pending Empirically started on Daptomycin and Zosyn Consult ID-appreciate input Wound care consulted -appreciate Input.Continue Santyl dressing Plastic Surgery consulted -appreciate input.No surgery planned Doppler US: No DVT Continue current antibiotics and dressing PAD Presented with rest pain Arterial Doppler:no sonographic evidence of high-grade stenosis or focal vessel cut off Start IV Heparin ggt Consult Vascular surgery -appreciate input Will go for arterial procedure today Continue Aspirin S/P Successful Jetstream Atherectomy and MEDICAL OFFICE REPRESENTATIVE of left SFA with drug-eluting balloon (Lutonix) on 01/24/17 Continue Aspirin and Plavix for 1 month Clinically better Denies any increase in pain HTN Stable continue Coreg BID HLD Hold statin while on daptomycin DEPRESSION Stable Continue home meds H/O LYMPHOSARCOMA stable DVT PX: On Heparin CODE STATUS: FULL CODE DISPOSITION Awaited Vital Signs: Date Time Temp Pulse Resp B/P Pulse Ox O2 Delivery O2 Flow Rate FiO2 01/26/17 12:00 98 Nasal Cannula 3.0 01/26/17 11:36 36.9 69 20 92/50 96 Nasal Cannula 3.0 01/26/17 08:00 98 Nasal Cannula 3.0 01/26/17 07:07 36.6 66 22 91/50 97 Nasal Cannula 2.0 01/26/17 04:00 Nasal Cannula 2.0 01/26/17 03:32 37.1 72 21 108/59 97 Nasal Cannula 2.0 01/26/17 00:00 97 Nasal Cannula 2.0 01/25/17 23:42 37.5 75 17 101/56 96 Nasal Cannula 2.0 01/25/17 20:00 97 Nasal Cannula 2.0 01/25/17 19:46 36.8 70 16 105/65 97 Nasal Cannula 01/25/17 16:00 98 Nasal Cannula 2.0 01/25/17 15:19 37.0 66 16 90/54 98 Nasal Cannula 2.0 Lab Results: Results Past 24 Hours Test 01/26/17 06:28 Range/Units Activated Partial Thromboplast Time 33.5 21.0-31.0 SECONDS Partial Thromboplastin Ratio 1.3 Creatinine 0.44 0.60-1.20 mg/dl Est Creatinine Clear Calc Drug Dose 119.8 ml/min Estimated GFR () 121.9 Estimated GFR (Non- 105.2
[2017-01-26] MEDS: OXYCODONE HCL IR 5 MG TAB (IMMEDIATE RELEASE) PO PRN (14:58)
--- NOTE | 2017-01-26 15:32 | Infectious Disease Progress Nt ---
Progress Note Date of Service January 26, 2017. Subjective Pt evaluation today including: conversation w/ patient, physical exam, chart review, lab review, review of studies, review of inpatient medication list Patient is feeling slightly improved today. Her white blood cell count yesterday was 5.98. Hemoglobin was 7.7, and this was not repeated this morning. Her creatinine today was stable at 0.44. Her wound culture is growing Pseudomonas which is intermediately resistant to aztreonam and imipenem but is otherwise sensitive. She is currently on IV Zosyn and daptomycin and tolerating these medications well. She denies nausea, vomiting, or diarrhea. Dr. Anderson and the wound care nurse did evaluate this patient yesterday, and are doing ascetic acid wet-to-dry dressings due to the presence of infection. Wound images were reviewed by me today. Patient is also more alert today. All Other Systems: Reviewed and Negative Medications Current Inpatient Medications Medications (Trade) Dose Ordered Sig/Connor Route Start Time Stop Time Status Last Admin Dose Admin Acetaminophen (Tylenol Tab) 650 mg Q4H PRN PO 01/23/17 23:30 02/22/17 23:29 Ondansetron HCl (Zofran Inj) 4 mg Q6H PRN IV 01/23/17 23:30 02/22/17 23:29 Daptomycin (Consult) 1 ea DAILY PRN N/A 01/24/17 00:08 02/23/17 00:07 Alprazolam (Xanax Tab) 0.5 mg TID PRN PO 01/24/17 00:15 02/23/17 00:14 Amitriptyline HCl (Elavil Tab) 75 mg HS PO 01/24/17 21:00 02/23/17 20:59 01/25/17 22:29 75 MG Aspirin (Ecotrin Tab) 81 mg QAM PO 01/24/17 09:00 02/23/17 08:59 01/26/17 09:05 81 MG Carvedilol (Coreg Tab) 6.25 mg BID PO 01/24/17 09:00 02/23/17 08:59 01/26/17 09:05 6.25 MG Citalopram Hydrobromide (celeXA TAB) 20 mg DAILY PO 01/24/17 09:00 02/23/17 08:59 01/26/17 09:06 20 MG Ferrous Sulfate (Feosol Tab) 325 mg BID PO 01/24/17 09:00 02/23/17 08:59 01/26/17 09:06 325 MG Lactobacillus Acidophilus (Floranex Tab) 2 tab BID PO 01/24/17 09:00 02/23/17 08:59 01/26/17 09:06 2 TAB Oxycodone HCl (Oxycontin Tab) 60 mg Q12 PO 01/24/17 09:00 02/07/17 08:59 01/26/17 09:19 60 MG Oxycodone HCl (Roxicodone Immediate Rel Tab) 5 mg Q4H PRN PO 01/24/17 00:15 02/07/17 00:14 01/26/17 14:58 5 MG Trazodone HCl 50 mg 50 mg HS PO 01/24/17 21:00 02/23/17 20:59 01/25/17 22:27 50 MG Daptomycin 275 mg/ Sodium Chloride 55.5 ml @ 120 mls/hr DAILY@0200 IV 01/24/17 02:00 02/03/17 01:59 01/26/17 01:36 120 MLS/HR Piperacillin Sod/ Tazobactam Sod/ Dextrose (Zosyn Iv/D5 100ml) 115 ml @ 28.75 mls/ hr Q8H IV 01/24/17 06:00 02/03/17 05:59 01/26/17 09:19 28.75 MLS/HR Piperacillin Sod/ Tazobactam Sod (Consult) 1 ea UD PRN N/A 01/24/17 01:30 02/23/17 01:29 Collagenase (Santyl Oint) 1 appln DAILY EXT 01/25/17 09:00 02/24/17 08:59 01/26/17 09:09 1 APPLN Clopidogrel Bisulfate (plAVix TAB) 75 mg QAM PO 01/24/17 16:30 02/23/17 16:29 01/26/17 09:05 75 MG Acetic Acid (Acetic Acid 0.25% Irrig Soln) 1 appln Q8 IR 01/26/17 14:00 02/25/17 13:59 01/26/17 14:54 1 APPLN Objective Vital Signs Date Time Temp Pulse Resp B/P Pulse Ox O2 Delivery O2 Flow Rate FiO2 5/4/17 15:20 37.4 66 18 95/59 97 3.0 94/47 01/26/17 12:00 98 Nasal Cannula 3.0 01/26/17 11:36 36.9 69 20 92/50 96 Nasal Cannula 3.0 01/26/17 08:00 98 Nasal Cannula 3.0 01/26/17 07:07 36.6 66 22 91/50 97 Nasal Cannula 2.0 01/26/17 04:00 Nasal Cannula 2.0 01/26/17 03:32 37.1 72 21 108/59 97 Nasal Cannula 2.0 01/26/17 00:00 97 Nasal Cannula 2.0 01/25/17 23:42 37.5 75 17 101/56 96 Nasal Cannula 2.0 01/25/17 20:00 97 Nasal Cannula 2.0 01/25/17 19:46 36.8 70 16 105/65 97 Nasal Cannula 01/25/17 16:00 98 Nasal Cannula 2.0 Physical Exam General Appearance: WD/WN, no apparent distress Eyes: normal inspection, sclerae normal ENT: hearing grossly normal Neck: supple, trachea midline Respiratory/Chest: chest non-tender, lungs clear, normal breath sounds, no respiratory distress, no accessory muscle use Cardiovascular: regular rate, rhythm Abdomen: normal bowel sounds, non tender, soft Extremities: + pertinent finding (Dressing on left lower extremity which is C/D /I) Neurologic/Psychiatric: alert, normal mood/affect Skin: normal color, warm/dry, no rash Laboratory Results RUN DATE: 01/26/17 [facility] LAB PAGE 1 RUN TIME: 818 Specimen Inquiry PATIENT: ROXANNE LOYD LOC: [facility] U # : [id number] AGE/SX: 67/F ROOM: [facility] REG : 01/23/[address]: Berna Gloria M.D. : 1950 BED: 1 DIS : STATUS: ADM IN TLOC: SPEC #: [id number] JANE: 01/24/17 STATUS: COMP REQ #: [id number] RECD: 01/24/[address]: Braden Martínez MD SOURCE: ULCER ENTR: 01/24/[address]: Shubham Timmons MD SPDESC: LEG Berna Qiu M.D. Jones, Christopher R., MD ORDERED: SURF MADELYN CU/PACHECO COMMENTS: Has Specimen Been Obtained/Collected? Y Procedure Result Verified Site GRAM STAIN Final 01/24/17 RESULT MODERATE GRAM NEGATIVE BACILLI RARE GRAM POSITIVE COCCI FEW EPITHELIAL CELLS NO WBCs SEEN SURFACE WOUND CULTURE Final 01/26/17 Organism 1 PSEUDOMONAS AERUGINOSA QUANITY MANY SENS SENSITIVITY TO FOLLOW 1. PSEUDOMONAS AERUGINOSA Target Route Dose RX AB Cost M.I.C. IQ ------ ----- ------ -- ------ -------- - ------ CEFTAZIDIME S 4 CEFEPIME S <=4 IMIPENEM I 4 AZTREONAM I 16 GENTAMICIN S <=4 TOBRAMYCIN S <=4 AMIKACIN S <=16 CIPROFLOXACIN S <=1 LEVOFLOXACIN S <=2 PIP/TAZO S <=16 S = SENSITIVE I = INTERMEDIATE R = RESISTANT Item Value Date Time Gram Stain - Final Complete 01/24/17134 Ulcer Leg Lower Left Blood Culture - Preliminary Resulted 01/24/1733 Blood NO GROWTH TO DATE. Blood Culture - Preliminary Resulted 01/24/1729 Blood NO GROWTH TO DATE. Last 24 Hours Test 01/26/17 06:28 Activated Partial Thromboplast Time 33.5 SECONDS Partial Thromboplastin Ratio 1.3 Creatinine 0.44 mg/dl Est Creatinine Clear Calc Drug Dose 119.8 ml/min Estimated GFR () 121.9 Estimated GFR (Non- 105.2 Assessment and Plan Patient with worsening of chronic left lower extremity ulceration in the setting of PAD and history of polymicrobial infection of the wound now growing Pseudomonas from wound culture. She is currently on IV Zosyn and Daptomycin. Recommend continuation of broad-spectrum antibiotic therapy for now due to the patient's recent history of polymicrobial infection with MRSA among other pathogens. We will continue to follow this patient and her response to treatment. PROVIDER ADDENDUM: Patient reviewed with Ms. Arndt. Agree with above assessment.
[2017-01-26] MEDS: TRAZODONE HCL 50 MG TAB PO SCH (21:34)
[2017-01-26] MEDS: AMITRIPTYLINE HCL 25 MG TAB PO SCH (21:35)
[2017-01-27] VITALS (13 sets, daily range): BP systolic 99–130; BP diastolic 58–73; PULSE 65–73; TEMP 36.8–37.9; O2SAT 89–97
[2017-01-27] MEDS: DAPTOmycin IV 275 MG in SODIUM CHLORIDE 0.9% 50ML 50 ML IV SCH (01:30)
[2017-01-27] MEDS: PIPERACILL/TAZOBAC IV 3.375 GM in DEXTROSE 5% 100ML IV SCH ×3 (01:31→18:36)
[2017-01-27] MEDS: ACETIC ACID 0.25% IRRIG SOLN 1000 ML PLCT IR SCH ×3 (05:30→22:01)
[2017-01-27 05:46] LABS: HEMATOCRIT 22.4 % (37-47); MEAN CELL VOLUME 90.3 fL (80-100); MEAN CORPUSCULAR HEMOGLOBIN 28.2 pg (25-34); MEAN CORPUSCULAR HGB CONC 31.3 g/dl (32-36); MEAN PLATELET VOLUME 8.3 fL (7.4-10.4); PLATELET COUNT 292 K/uL (130-400); RED BLOOD COUNT 2.48 M/uL (4.2-5.4); WHITE BLOOD COUNT 5.35 K/uL (4.8-10.8)
[2017-01-27 05:58] LABS: PARTIAL THROMBOPLASTIN RATIO 1.3
[2017-01-27 06:13] LABS: CREATININE 0.41 mg/dl (0.60-1.20)
[2017-01-27] MEDS: CARVEDILOL 6.25 MG TAB PO SCH ×2 (08:39→22:00)
[2017-01-27] MEDS: ASPIRIN 81 MG ECTAB PO SCH (08:39)
[2017-01-27] MEDS: CLOPIDOGREL BISULFATE 75 MG TAB PO SCH (08:39)
[2017-01-27] MEDS: LACTOBACILLUS ACIDOPHILUS (FLORANEX) TAB PO SCH ×2 (08:39→21:59)
[2017-01-27] MEDS: CITALOPRAM 20 MG TAB PO SCH (08:39)
[2017-01-27] MEDS: COLLAGENASE OINT 30 GM TUBE EXT SCH (08:39)
[2017-01-27] MEDS: FERROUS SULFATE 325 MG TAB PO SCH ×2 (08:39→22:00)
[2017-01-27] MEDS: OXYCODONE HCL 20 MG TABCR (OXYCONTIN) PO SCH ×2 (08:52→22:00)
--- NOTE | 2017-01-27 16:00 | Infectious Disease Progress Nt ---
Progress Note Date of Service January 27, 2017. Subjective Pt evaluation today including: conversation w/ patient, physical exam, chart review, lab review, review of studies, review of inpatient medication list Patient states that her pain in the left lower extremity is slightly improved today. Her hemoglobin however continued to trend down to 7. She is anticipating blood transfusion this morning/afternoon. Her creatinine is stable at 0.41. She continues to tolerate IV daptomycin and Zosyn well. Her culture was finalized with Pseudomonas aeruginosa, and her blood cultures continue to show no growth. All Other Systems: Reviewed and Negative Medications Current Inpatient Medications Medications (Trade) Dose Ordered Sig/Connor Route Start Time Stop Time Status Last Admin Dose Admin Acetaminophen (Tylenol Tab) 650 mg Q4H PRN PO 01/23/17 23:30 02/22/17 23:29 Ondansetron HCl (Zofran Inj) 4 mg Q6H PRN IV 01/23/17 23:30 02/22/17 23:29 Daptomycin (Consult) 1 ea DAILY PRN N/A 01/24/17 00:08 02/23/17 00:07 Alprazolam (Xanax Tab) 0.5 mg TID PRN PO 01/24/17 00:15 02/23/17 00:14 Amitriptyline HCl (Elavil Tab) 75 mg HS PO 01/24/17 21:00 02/23/17 20:59 01/26/17 21:35 75 MG Aspirin (Ecotrin Tab) 81 mg QAM PO 01/24/17 09:00 02/23/17 08:59 01/27/17 08:39 81 MG Carvedilol (Coreg Tab) 6.25 mg BID PO 01/24/17 09:00 02/23/17 08:59 01/27/17 08:39 6.25 MG Citalopram Hydrobromide (celeXA TAB) 20 mg DAILY PO 01/24/17 09:00 02/23/17 08:59 01/27/17 08:39 20 MG Ferrous Sulfate (Feosol Tab) 325 mg BID PO 01/24/17 09:00 02/23/17 08:59 01/27/17 08:39 325 MG Lactobacillus Acidophilus (Floranex Tab) 2 tab BID PO 01/24/17 09:00 02/23/17 08:59 01/27/17 08:39 2 TAB Oxycodone HCl (Oxycontin Tab) 60 mg Q12 PO 01/24/17 09:00 02/07/17 08:59 01/27/17 08:52 60 MG Oxycodone HCl (Roxicodone Immediate Rel Tab) 5 mg Q4H PRN PO 01/24/17 00:15 02/07/17 00:14 01/26/17 14:58 5 MG Trazodone HCl 50 mg 50 mg HS PO 01/24/17 21:00 02/23/17 20:59 01/26/17 21:34 50 MG Daptomycin 275 mg/ Sodium Chloride 55.5 ml @ 120 mls/hr DAILY@0200 IV 01/24/17 02:00 02/03/17 01:59 01/27/17 01:30 120 MLS/HR Piperacillin Sod/ Tazobactam Sod/ Dextrose (Zosyn Iv/D5 100ml) 115 ml @ 28.75 mls/ hr Q8H IV 01/24/17 06:00 02/03/17 05:59 01/27/17 11:13 28.75 MLS/HR Piperacillin Sod/ Tazobactam Sod (Consult) 1 ea UD PRN N/A 01/24/17 01:30 02/23/17 01:29 Collagenase (Santyl Oint) 1 appln DAILY EXT 01/25/17 09:00 02/24/17 08:59 01/24/17 19:09 1 APPLN Clopidogrel Bisulfate (plAVix TAB) 75 mg QAM PO 01/24/17 16:30 02/23/17 16:29 01/27/17 08:39 75 MG Acetic Acid (Acetic Acid 0.25% Irrig Soln) 1 appln Q8 IR 01/26/17 14:00 02/25/17 13:59 01/27/17 15:10 1 APPLN Objective Vital Signs Date Time Temp Pulse Resp B/P Pulse Ox O2 Delivery O2 Flow Rate FiO2 01/27/17 15:26 37.8 71 16 100/61 91 Room Air 01/27/17 12:00 Nasal Cannula 2.0 01/27/17 11:32 37.2 71 20 103/62 91 Room Air 01/27/17 08:00 Nasal Cannula 2.0 01/27/17 07:35 36.8 65 22 107/67 97 Ambu-Bag 2.0 01/27/17 04:28 37.0 70 18 99/65 96 Nasal Cannula 2.0 01/27/17 04:00 Nasal Cannula 2.0 01/27/17 00:00 96 Nasal Cannula 2.0 01/26/17 23:56 37.2 80 18 102/61 92 Room Air 01/26/17 20:00 98 Nasal Cannula 2.0 01/26/17 19:29 37.1 67 18 93/54 97 Room Air 90/50 Physical Exam General Appearance: WD/WN, no apparent distress Eyes: normal inspection, sclerae normal ENT: hearing grossly normal Neck: supple, trachea midline Respiratory/Chest: chest non-tender, lungs clear, no respiratory distress, no accessory muscle use Cardiovascular: regular rate, rhythm Abdomen: normal bowel sounds, non tender, soft Extremities: + pertinent finding (Left lower extremity with dressing in place.) Neurologic/Psychiatric: alert, normal mood/affect Skin: normal color, warm/dry, no rash Laboratory Results Item Value Date Time Gram Stain - Final Complete 01/24/17 0135 Ulcer Leg Lower Left Blood Culture - Preliminary Resulted 01/24/17 0034 Blood NO GROWTH TO DATE. Blood Culture - Preliminary Resulted 01/24/17 0030 Blood NO GROWTH TO DATE. Last 24 Hours Test 01/27/17 05:12 White Blood Count 5.35 K/uL Red Blood Count 2.48 M/uL Hemoglobin 7.0 g/dL Hematocrit 22.4 % Mean Corpuscular Volume 90.3 fL Mean Corpuscular Hemoglobin 28.2 pg Mean Corpuscular Hemoglobin Concent 31.3 g/dl RDW Standard Deviation 47.2 fL RDW Coefficient of Variation 14.3 % Platelet Count 292 K/uL Mean Platelet Volume 8.3 fL Activated Partial Thromboplast Time 33.4 SECONDS Partial Thromboplastin Ratio 1.3 Creatinine 0.41 mg/dl Est Creatinine Clear Calc Drug Dose 128.6 ml/min Estimated GFR () 124.8 Estimated GFR (Non- 107.7 Assessment and Plan Patient with worsening of chronic left lower extremity ulceration in the setting of PAD and history of polymicrobial infection of the wound now growing Pseudomonas from wound culture. She is currently on IV Zosyn and Daptomycin. Recommend continuation of current antibiotic therapy for now due to the patient' s recent history of polymicrobial infection with MRSA among other pathogens. We will continue to follow this patient and her response to treatment- she likely will need multiple days of IV therapy still. PROVIDER ADDENDUM: Patient reviewed with Ms. Arndt. Agree with above assessment.
--- NOTE | 2017-01-27 16:28 | Progress Note ---
Internal Med Progress Note Date of Service: January 27, 2017. Provider Documentation: SUBJECTIVE: The patient was seen and examined Remains drowsy but no distress S/P::Successful Jetstream Atherectomy and HANDBAG FRAMER of left SFA with drug-eluting balloon (Lutonix) on 01/24/17 Remains weak and lethargic Denies any complaints OBJECTIVE: Vital Signs-as noted below Exam: General-No distress at rest Eyes-normal ENT-normal Neck-supple Lungs-clear to ausucltate bilaterally with decreased breath sound Heart-Regular,no murmur Abdomen-Benign,no masses,bowel sound present Extremities-Right leg -minimal edema Left Leg is bandaged,no sensation and no movement of the left foot/leg Neuro-AAOx3 Lab data as noted below. ASSESSMENT & PLAN: Anemia Likely anemia of Chronic disease complicated by recurrent infection will check stool for occult blood Give 2 units of PRBC Chronic Wound Left Lower Extremity with Cellulitis H/O MRSA and chronic use of antibiotic No signs of sepsis Blood/Wound cultures-pending Empirically started on Daptomycin and Zosyn Consult ID-appreciate input Wound care consulted -appreciate Input.Continue Santyl dressing Plastic Surgery consulted -appreciate input.No surgery planned Doppler US: No DVT Continue current antibiotics and dressing as per ID and Wound care recommendation PAD Presented with rest pain Arterial Doppler:no sonographic evidence of high-grade stenosis or focal vessel cut off Start IV Heparin ggt Consult Vascular surgery -appreciate input Will go for arterial procedure today Continue Aspirin S/P Successful Jetstream Atherectomy and HANDBAG FRAMER of left SFA with drug-eluting balloon (Lutonix) on 01/24/17 Continue Aspirin and Plavix for 1 month Denies any increase in pain Remains stable HTN Stable continue Coreg BID HLD Hold statin while on daptomycin DEPRESSION Stable Continue home meds H/O LYMPHOSARCOMA stable DVT PX: On Heparin CODE STATUS: FULL CODE DISPOSITION Awaited Vital Signs: Date Time Temp Pulse Resp B/P Pulse Ox O2 Delivery O2 Flow Rate FiO2 01/27/17 16:00 Nasal Cannula 2.0 01/27/17 15:26 37.8 71 16 100/61 91 Room Air 01/27/17 12:00 Nasal Cannula 2.0 01/27/17 11:32 37.2 71 20 103/62 91 Room Air 01/27/17 08:00 Nasal Cannula 2.0 01/27/17 07:35 36.8 65 22 107/67 97 Ambu-Bag 2.0 01/27/17 04:28 37.0 70 18 99/65 96 Nasal Cannula 2.0 01/27/17 04:00 Nasal Cannula 2.0 01/27/17 00:00 96 Nasal Cannula 2.0 01/26/17 23:56 37.2 80 18 102/61 92 Room Air 01/26/17 20:00 98 Nasal Cannula 2.0 01/26/17 19:29 37.1 67 18 93/54 97 Room Air 90/50 Lab Results: Results Past 24 Hours Test 01/27/17 05:12 Range/Units White Blood Count 5.35 4.8-10.8 K/uL Red Blood Count 2.48 4.2-5.4 M/uL Hemoglobin 7.0 12.0-16.0 g/dL Hematocrit 22.4 37-47 % Mean Corpuscular Volume 90.3 80-100 fL Mean Corpuscular Hemoglobin 28.2 25-34 pg Mean Corpuscular Hemoglobin Concent 31.3 32-36 g/dl RDW Standard Deviation 47.2 36.4-46.3 fL RDW Coefficient of Variation 14.3 11.5-14.5 % Platelet Count 292 130-400 K/uL Mean Platelet Volume 8.3 7.4-10.4 fL Activated Partial Thromboplast Time 33.4 21.0-31.0 SECONDS Partial Thromboplastin Ratio 1.3 Creatinine 0.41 0.60-1.20 mg/dl Est Creatinine Clear Calc Drug Dose 128.6 ml/min Estimated GFR () 124.8 Estimated GFR (Non- 107.7
[2017-01-27] MEDS: TRAZODONE HCL 50 MG TAB PO SCH (22:00)
[2017-01-27] MEDS: AMITRIPTYLINE HCL 25 MG TAB PO SCH (22:00)
[2017-01-28] VITALS (7 sets, daily range): BP systolic 104–124; BP diastolic 56–68; PULSE 64–72; TEMP 36.9–37.2; O2SAT 90–96
[2017-01-28] MEDS: DAPTOmycin IV 275 MG in SODIUM CHLORIDE 0.9% 50ML 50 ML IV SCH (02:27)
[2017-01-28] MEDS: PIPERACILL/TAZOBAC IV 3.375 GM in DEXTROSE 5% 100ML IV SCH ×2 (02:52→09:50)
[2017-01-28] MEDS: ACETIC ACID 0.25% IRRIG SOLN 1000 ML PLCT IR SCH ×3 (06:07→23:56)
[2017-01-28 08:04] LABS: PARTIAL THROMBOPLASTIN RATIO 1.4
[2017-01-28] MEDS: COLLAGENASE OINT 30 GM TUBE EXT SCH (09:00)
[2017-01-28 09:05] LABS: HEMATOCRIT 29.5 % (37-47); MEAN CELL VOLUME 88.9 fL (80-100); MEAN CORPUSCULAR HEMOGLOBIN 28.6 pg (25-34); MEAN CORPUSCULAR HGB CONC 32.2 g/dl (32-36); MEAN PLATELET VOLUME 8.8 fL (7.4-10.4); PLATELET COUNT 308 K/uL (130-400); RED BLOOD COUNT 3.32 M/uL (4.2-5.4); WHITE BLOOD COUNT 4.81 K/uL (4.8-10.8)
[2017-01-28] MEDS: CARVEDILOL 6.25 MG TAB PO SCH ×2 (09:49→21:25)
[2017-01-28] MEDS: LACTOBACILLUS ACIDOPHILUS (FLORANEX) TAB PO SCH ×2 (09:49→21:26)
[2017-01-28] MEDS: FERROUS SULFATE 325 MG TAB PO SCH ×2 (09:49→21:26)
[2017-01-28] MEDS: ASPIRIN 81 MG ECTAB PO SCH (09:49)
[2017-01-28] MEDS: CLOPIDOGREL BISULFATE 75 MG TAB PO SCH (09:49)
[2017-01-28] MEDS: CITALOPRAM 20 MG TAB PO SCH (09:50)
[2017-01-28] MEDS: OXYCODONE HCL 20 MG TABCR (OXYCONTIN) PO SCH ×2 (09:54→21:26)
[2017-01-28 11:30] LABS: BUN/CREATININE RATIO 14.3 (10-20); CALCIUM 8.7 mg/dl (8.5-10.1); CREATININE 0.4 mg/dl (0.60-1.20); MAGNESIUM 1.8 mg/dl (1.8-2.4); POTASSIUM 3.8 mmol/L (3.5-5.1)
--- NOTE | 2017-01-28 14:32 | Progress Note ---
Internal Med Progress Note Date of Service: January 28, 2017. Provider Documentation: SUBJECTIVE: The patient was seen and examined S/P::Successful Jet-stream Atherectomy and FULL TIME of left SFA with drug-eluting balloon (Lutonix) on 01/24/17 Remains weak and lethargic Denies any complaints except weakness OBJECTIVE: Vital Signs-as noted below Exam: General-No distress at rest Eyes-normal ENT-normal Neck-supple Lungs-clear to ausucltate bilaterally with decreased breath sound Heart-Regular,no murmur Abdomen-Benign,no masses,bowel sound present Extremities-Right leg -minimal edema Left Leg is bandaged,no sensation and no movement of the left foot/leg Neuro-AAOx3 Lab data as noted below. ASSESSMENT & PLAN: Anemia Likely anemia of Chronic disease complicated by recurrent infection will check stool for occult blood Give 2 units of PRBC Hb went up to 9.5 Feels a little better Chronic Wound Left Lower Extremity with Cellulitis H/O MRSA and chronic use of antibiotic No signs of sepsis Blood/Wound cultures-Blood culture-negative ,Wound culture-Pseudomonas , sensitive to current Antibiotic Empirically started on Daptomycin and Zosyn Consult ID-appreciate input Wound care consulted -appreciate Input.Continue Santyl dressing Plastic Surgery consulted -appreciate input.No surgery planned Doppler US: No DVT Continue current antibiotics and dressing as per ID and Wound care recommendation PAD Presented with rest pain Arterial Doppler:no sonographic evidence of high-grade stenosis or focal vessel cut off Start IV Heparin ggt Consult Vascular surgery -appreciate input Will go for arterial procedure today Continue Aspirin S/P Successful Jetstream Atherectomy and FULL TIME of left SFA with drug-eluting balloon (Lutonix) on 01/24/17 Continue Aspirin and Plavix for 1 month Denies any increase in pain Remains stable HTN Stable continue Coreg BID HLD Hold statin while on daptomycin DEPRESSION Stable Continue home meds H/O LYMPHOSARCOMA stable DVT PX: On Heparin CODE STATUS: FULL CODE DISPOSITION Awaited Vital Signs: Date Time Temp Pulse Resp B/P Pulse Ox O2 Delivery O2 Flow Rate FiO2 01/28/17 12:00 Room Air 01/28/17 11:44 37.0 69 18 120/68 94 Room Air 01/28/17 08:07 36.9 68 18 105/62 92 Room Air 01/28/17 08:00 Room Air 01/28/17 04:00 Room Air 01/28/17 03:53 36.9 64 15 112/62 96 Nasal Cannula 2.0 01/28/17 00:32 37.0 67 16 123/63 96 Nasal Cannula 2.0 01/28/17 00:00 Room Air 01/27/17 20:00 Room Air 01/27/17 19:33 37.5 73 16 130/73 93 Room Air 01/27/17 17:05 37.7 68 18 112/68 91 01/27/17 17:04 37.7 68 18 112/68 91 01/27/17 16:15 71 18 112/65 91 01/27/17 16:00 Nasal Cannula 2.0 01/27/17 15:30 68 18 110/66 91 01/27/17 15:26 37.8 71 16 100/61 91 Room Air 01/27/17 15:15 37.7 67 18 101/63 90 01/27/17 15:00 37.7 70 109/63 89 01/27/17 14:48 37.9 68 18 103/58 93 Lab Results: Results Past 24 Hours Test 01/28/17 07:33 01/28/17 10:35 Range/Units White Blood Count 4.81 4.8-10.8 K/uL Red Blood Count 3.32 4.2-5.4 M/uL Hemoglobin 9.5 12.0-16.0 g/dL Hematocrit 29.5 37-47 % Mean Corpuscular Volume 88.9 80-100 fL Mean Corpuscular Hemoglobin 28.6 25-34 pg Mean Corpuscular Hemoglobin Concent 32.2 32-36 g/dl RDW Standard Deviation 48.4 36.4-46.3 fL RDW Coefficient of Variation 14.9 11.5-14.5 % Platelet Count 308 130-400 K/uL Mean Platelet Volume 8.8 7.4-10.4 fL Activated Partial Thromboplast Time 35.5 21.0-31.0 SECONDS Partial Thromboplastin Ratio 1.4 Sodium Level 140 136-145 mmol/L Potassium Level 3.8 3.5-5.1 mmol/L Chloride Level 103 98-107 mmol/L Carbon Dioxide Level 32 21-32 mmol/L Anion Gap 5.0 3-11 mmol/L Blood Urea Nitrogen 6 7-18 mg/dl Creatinine 0.40 0.60-1.20 mg/dl Est Creatinine Clear Calc Drug Dose 130.6 ml/min Estimated GFR () 125.8 Estimated GFR (Non- 108.5 BUN/Creatinine Ratio 14.3 10-20 Random Glucose 118 70-99 mg/dl Calcium Level 8.7 8.5-10.1 mg/dl Magnesium Level 1.8 1.8-2.4 mg/dl
[2017-01-28] MEDS: LEVOFLOXACIN 750MG / D5W IV SCH (17:47)
[2017-01-28] MEDS: TRAZODONE HCL 50 MG TAB PO SCH (21:25)
[2017-01-28] MEDS: AMITRIPTYLINE HCL 25 MG TAB PO SCH (21:26)
[2017-01-29] VITALS (14 sets, daily range): BP systolic 95–119; BP diastolic 52–70; PULSE 59–73; TEMP 36.3–37.6; O2SAT 91–98
[2017-01-29] MEDS: OXYCODONE HCL IR 5 MG TAB (IMMEDIATE RELEASE) PO PRN ×3 (00:01→15:38)
[2017-01-29] MEDS: DAPTOmycin IV 275 MG in SODIUM CHLORIDE 0.9% 50ML 50 ML IV SCH (02:03)
[2017-01-29] MEDS: ACETIC ACID 0.25% IRRIG SOLN 1000 ML PLCT IR SCH ×3 (06:00→21:42)
[2017-01-29 06:53] LABS: HEMATOCRIT 29.6 % (37-47); MEAN CELL VOLUME 88.9 fL (80-100); MEAN CORPUSCULAR HEMOGLOBIN 29.1 pg (25-34); MEAN CORPUSCULAR HGB CONC 32.8 g/dl (32-36); MEAN PLATELET VOLUME 8.5 fL (7.4-10.4); PLATELET COUNT 301 K/uL (130-400); RED BLOOD COUNT 3.33 M/uL (4.2-5.4)
[2017-01-29 07:18] LABS: PARTIAL THROMBOPLASTIN RATIO 1.4
[2017-01-29 07:24] LABS: CREATININE 0.43 mg/dl (0.60-1.20)
[2017-01-29] MEDS: COLLAGENASE OINT 30 GM TUBE EXT SCH (09:00)
[2017-01-29] MEDS: CITALOPRAM 20 MG TAB PO SCH (09:28)
[2017-01-29] MEDS: LACTOBACILLUS ACIDOPHILUS (FLORANEX) TAB PO SCH ×2 (09:29→21:23)
[2017-01-29] MEDS: FERROUS SULFATE 325 MG TAB PO SCH ×2 (09:29→21:23)
[2017-01-29] MEDS: ASPIRIN 81 MG ECTAB PO SCH (09:29)
[2017-01-29] MEDS: OXYCODONE HCL 20 MG TABCR (OXYCONTIN) PO SCH ×2 (09:30→21:23)
[2017-01-29] MEDS: CLOPIDOGREL BISULFATE 75 MG TAB PO SCH (09:30)
[2017-01-29] MEDS: CARVEDILOL 6.25 MG TAB PO SCH ×2 (09:33→21:23)
[2017-01-29 10:49] LABS: HEMATOCRIT 30.9 % (37-47); MEAN CELL VOLUME 89.6 fL (80-100); MEAN CORPUSCULAR HEMOGLOBIN 28.7 pg (25-34); MEAN PLATELET VOLUME 8.8 fL (7.4-10.4); PLATELET COUNT 358 K/uL (130-400); RED BLOOD COUNT 3.45 M/uL (4.2-5.4); WHITE BLOOD COUNT 4.92 K/uL (4.8-10.8)
--- NOTE | 2017-01-29 10:55 | Progress Note ---
Internal Med Progress Note Date of Service: January 29, 2017. Provider Documentation: SUBJECTIVE: The patient was seen and examined S/P::Successful Jet-stream Atherectomy and SCRAPER TENDER of left SFA with drug-eluting balloon (Lutonix) on 01/24/17 Saw her this morning -without any complaints Went to Bathroom and following that noted to have profuse bleeding from left leg bandaged area Code goodman was called OBJECTIVE: Vital Signs-as noted below Exam: General-Anxious but not in any pain /distress Eyes-normal ENT-normal Neck-supple Lungs-clear to ausucltate bilaterally with decreased breath sound Heart-Regular,no murmur Abdomen-Benign,no masses,bowel sound present Extremities-Right leg -minimal edema Huge clot noted under left foot with soaking of the bandage with blood Bandage was removed and the raw area of the wound noted with scab overlying No sprouting of blood Tourniquet applied and released afterwards-bleeding seems to be stopped Neuro-AAOx3 Lab data as noted below. ASSESSMENT & PLAN: Profuse Bleeding from the left leg wound S/P Successful Jetstream Atherectomy and SCRAPER TENDER of left SFA with drug-eluting balloon (Lutonix) on 01/24/17 On Aspirin and Plavix.Not been on Heparin since 01/24-due to the procedure and anemia Bleeding noted from the lower part of the wound-did not look like arterial bleeding Tourniquet applied and released afterwards-bleeding seems to be stopped IV fluid started and stat CBC ordered Discussed with Dr Lamb -advised to stop Aspirin Dr Hinojosa will evaluate and may need Vascular surgery in bleeds again Patient reassured Anemia Likely anemia of Chronic disease complicated by recurrent infection will check stool for occult blood Give 2 units of PRBC Hb went up to 9.5 Chronic Wound Left Lower Extremity with Cellulitis H/O MRSA and chronic use of antibiotic No signs of sepsis Blood/Wound cultures-Blood culture-negative ,Wound culture-Pseudomonas , sensitive to current Antibiotic Empirically started on Daptomycin and Zosyn Consult ID-appreciate input Wound care consulted -appreciate Input.Continue Santyl dressing Plastic Surgery consulted -appreciate input.No surgery planned Doppler US: No DVT Continue current antibiotics and dressing as per ID and Wound care recommendation Zosyn was stopped and Levaquin started PAD Presented with rest pain Arterial Doppler:no sonographic evidence of high-grade stenosis or focal vessel cut off Start IV Heparin ggt Consult Vascular surgery -appreciate input Will go for arterial procedure today Continue Aspirin S/P Successful Jetstream Atherectomy and SCRAPER TENDER of left SFA with drug-eluting balloon (Lutonix) on 01/24/17 Continue Aspirin and Plavix for 1 month Bleeding from the Left leg wound Will hold Aspirin Check CBC HTN Stable continue Coreg BID HLD Hold statin while on daptomycin DEPRESSION Stable Continue home meds H/O LYMPHOSARCOMA stable DVT PX: On Heparin CODE STATUS: FULL CODE DISPOSITION Awaited Vital Signs: Date Time Temp Pulse Resp B/P Pulse Ox O2 Delivery O2 Flow Rate FiO2 01/29/17 09:32 67 112/52 01/29/17 07:17 36.7 64 16 105/53 93 Room Air 01/29/17 00:05 Room Air 01/28/17 22:48 37.2 72 15 124/65 90 Room Air 01/28/17 16:34 37.2 67 16 104/56 94 Room Air 01/28/17 16:10 Room Air 01/28/17 15:42 37.0 69 18 94 2.0 01/28/17 12:00 Room Air 01/28/17 11:44 37.0 69 18 120/68 94 Room Air Lab Results: Results Past 24 Hours Test 01/29/17 06:26 01/29/17 10:14 Range/Units White Blood Count 4.70 4.8-10.8 K/uL Red Blood Count 3.33 4.2-5.4 M/uL Hemoglobin 9.7 12.0-16.0 g/dL Hematocrit 29.6 37-47 % Mean Corpuscular Volume 88.9 80-100 fL Mean Corpuscular Hemoglobin 29.1 25-34 pg Mean Corpuscular Hemoglobin Concent 32.8 32-36 g/dl RDW Standard Deviation 47.9 36.4-46.3 fL RDW Coefficient of Variation 14.6 11.5-14.5 % Platelet Count 301 130-400 K/uL Mean Platelet Volume 8.5 7.4-10.4 fL Activated Partial Thromboplast Time 35.5 21.0-31.0 SECONDS Partial Thromboplastin Ratio 1.4 Creatinine 0.43 0.60-1.20 mg/dl Est Creatinine Clear Calc Drug Dose 121.5 ml/min Estimated GFR () 122.8 Estimated GFR (Non- 106.0 Total Creatine Kinase 15 26-192 U/L
[2017-01-29] MEDS: NSS + 20MEQ KCL 1000ML 1,000 ML IV SCH (13:06)
[2017-01-29] MEDS: LEVOFLOXACIN 750MG / D5W IV SCH (16:40)
[2017-01-29] MEDS: AMITRIPTYLINE HCL 25 MG TAB PO SCH (21:23)
[2017-01-29] MEDS: TRAZODONE HCL 50 MG TAB PO SCH (21:24)
[2017-01-30] MEDS: DAPTOmycin IV 275 MG in SODIUM CHLORIDE 0.9% 50ML 50 ML IV SCH (01:58)
[2017-01-30] MEDS: NSS + 20MEQ KCL 1000ML 1,000 ML IV SCH ×2 (02:03→13:53)
[2017-01-30] MEDS: ACETIC ACID 0.25% IRRIG SOLN 1000 ML PLCT IR SCH ×3 (06:00→21:55)
[2017-01-30] MEDS: OXYCODONE HCL IR 5 MG TAB (IMMEDIATE RELEASE) PO PRN ×2 (06:17→19:45)
[2017-01-30 07:10] LABS: HEMATOCRIT 26.5 % (37-47); MEAN CELL VOLUME 89.8 fL (80-100); MEAN CORPUSCULAR HEMOGLOBIN 27.1 pg (25-34); MEAN CORPUSCULAR HGB CONC 30.2 g/dl (32-36); MEAN PLATELET VOLUME 8.4 fL (7.4-10.4); PLATELET COUNT 328 K/uL (130-400); RED BLOOD COUNT 2.95 M/uL (4.2-5.4)
[2017-01-30 07:21] LABS: PARTIAL THROMBOPLASTIN RATIO 1.4
[2017-01-30 07:23] VITALS: BP 98/60; PULSE 66; TEMP 36.7; O2SAT 92
[2017-01-30 07:36] LABS: BUN/CREATININE RATIO 17.7 (10-20); CALCIUM 8.5 mg/dl (8.5-10.1); CREATININE 0.46 mg/dl (0.60-1.20); POTASSIUM 4.2 mmol/L (3.5-5.1)
[2017-01-30 09:00] VITALS: BP 98/53; PULSE 66
[2017-01-30] MEDS: COLLAGENASE OINT 30 GM TUBE EXT SCH (09:00)
[2017-01-30] MEDS: CARVEDILOL 6.25 MG TAB PO SCH ×2 (09:00→21:52)
[2017-01-30] MEDS: ASPIRIN 81 MG ECTAB PO SCH (09:13)
[2017-01-30] MEDS: OXYCODONE HCL 20 MG TABCR (OXYCONTIN) PO SCH ×2 (09:13→21:52)
[2017-01-30] MEDS: LACTOBACILLUS ACIDOPHILUS (FLORANEX) TAB PO SCH ×2 (09:14→21:54)
[2017-01-30] MEDS: FERROUS SULFATE 325 MG TAB PO SCH ×2 (09:14→21:54)
[2017-01-30] MEDS: CLOPIDOGREL BISULFATE 75 MG TAB PO SCH (09:14)
[2017-01-30] MEDS: CITALOPRAM 20 MG TAB PO SCH (09:14)
--- NOTE | 2017-01-30 11:17 | Progress Note ---
Progress Note Date of Service January 30, 2017. Progress Note Eda is seen in follow up today with WOCNs. Weekend events noted. Acetic acid dressings were discontinued due to bleeding and adaptic initiated. afebrile VSS LLE with extensive posterior calf ulcer. No associated odor today, however there is extension of the pressure necrosis and ulceration since she was seen last week. Black eschar, yellow slough present with exposed tendon. Plan: Recommended initiating irrigating VAC for now. Dr. Sutton, managing wound care physician, is away but should evaluate when he returns. I do not plan to offer further grafting at this point-prior graft took initially but she has lost the graft due to persistent pressure and poor compliance, now with multiple prior infections and multiple attempts at revascularization. Will reassess at VAC change on Monday.
[2017-01-30 15:19] VITALS: BP 115/65; PULSE 77; TEMP 37.2; O2SAT 93
--- NOTE | 2017-01-30 15:21 | Progress Note ---
Internal Med Progress Note Date of Service: January 30, 2017. Provider Documentation: SUBJECTIVE: The patient was seen and examined S/P::Successful Jet-stream Atherectomy and BUSH HOG OPERATOR of left SFA with drug-eluting balloon (Lutonix) on 01/24/17 Saw her this morning -without any complaints Went to Bathroom and following that noted to have profuse bleeding from left leg bandaged area Code rex was called 01/29/17 Bleeding stopped and no recurrence OBJECTIVE: Vital Signs-as noted below Exam: General-Anxious but not in any pain /distress Eyes-normal ENT-normal Neck-supple Lungs-clear to ausucltate bilaterally with decreased breath sound Heart-Regular,no murmur Abdomen-Benign,no masses,bowel sound present Extremities-Right leg -minimal edema Huge clot noted under left foot with soaking of the bandage with blood Bandage was removed and the raw area of the wound noted with scab overlying No sprouting of blood Tourniquet applied and released afterwards-bleeding seems to be stopped Neuro-AAOx3 Lab data as noted below. ASSESSMENT & PLAN: Profuse Bleeding from the left leg wound S/P Successful Jetstream Atherectomy and BUSH HOG OPERATOR of left SFA with drug-eluting balloon (Lutonix) on 01/24/17 On Aspirin and Plavix.Not been on Heparin since 01/24-due to the procedure and anemia Bleeding noted from the lower part of the wound-did not look like arterial bleeding Tourniquet applied and released afterwards-bleeding seems to be stopped IV fluid started and stat CBC ordered Discussed with Dr Lamb -advised to stop Aspirin Dr Hinojosa will evaluate and may need Vascular surgery in bleeds again Patient reassured No more bleeding Plavix was on hold,Aspirin continued Discussed with Dr Leal -will try to continue Plavix for ~1 month if possible , can be stopped if rebleeding Anemia Likely anemia of Chronic disease complicated by recurrent infection will check stool for occult blood Give 2 units of PRBC Hb went up to 9.5 on 01/29/17 Hb dropped to 8.0 today 01/30/17 Monitor Chronic Wound Left Lower Extremity with Cellulitis H/O MRSA and chronic use of antibiotic No signs of sepsis Blood/Wound cultures-Blood culture-negative ,Wound culture-Pseudomonas , sensitive to current Antibiotic Empirically started on Daptomycin and Zosyn Consult ID-appreciate input Wound care consulted -appreciate Input.Continue Santyl dressing Plastic Surgery consulted -appreciate input.No surgery planned Doppler US: No DVT Continue current antibiotics and dressing as per ID and Wound care recommendation Zosyn was stopped and Levaquin started Wound Vac started PAD Presented with rest pain Arterial Doppler:no sonographic evidence of high-grade stenosis or focal vessel cut off Start IV Heparin ggt Consult Vascular surgery -joesph input Will go for arterial procedure today Continue Aspirin S/P Successful Jetstream Atherectomy and BUSH HOG OPERATOR of left SFA with drug-eluting balloon (Lutonix) on 01/24/17 Continue Aspirin and Plavix for 1 month Bleeding from the Left leg wound Will continue Plavix and Aspirin for ~1 month HTN Stable continue Coreg BID HLD Hold statin while on daptomycin DEPRESSION Stable Continue home meds H/O LYMPHOSARCOMA stable DVT PX: On Heparin CODE STATUS: FULL CODE DISPOSITION Awaited Vital Signs: Date Time Temp Pulse Resp B/P Pulse Ox O2 Delivery O2 Flow Rate FiO2 01/30/17 09:00 66 98/53 01/30/17 07:45 Room Air 01/30/17 07:23 36.7 66 16 98/60 92 Room Air 01/30/17 00:00 Room Air 01/29/17 23:15 37.6 73 16 112/57 94 Room Air 01/29/17 21:20 72 16 119/70 93 Room Air 01/29/17 16:15 94 Room Air 01/29/17 15:19 37.0 67 16 107/69 94 Room Air Lab Results: Results Past 24 Hours Test 01/30/17 06:27 Range/Units White Blood Count 4.90 4.8-10.8 K/uL Red Blood Count 2.95 4.2-5.4 M/uL Hemoglobin 8.0 12.0-16.0 g/dL Hematocrit 26.5 37-47 % Mean Corpuscular Volume 89.8 80-100 fL Mean Corpuscular Hemoglobin 27.1 25-34 pg Mean Corpuscular Hemoglobin Concent 30.2 32-36 g/dl RDW Standard Deviation 48.3 36.4-46.3 fL RDW Coefficient of Variation 14.6 11.5-14.5 % Platelet Count 328 130-400 K/uL Mean Platelet Volume 8.4 7.4-10.4 fL Activated Partial Thromboplast Time 36.8 21.0-31.0 SECONDS Partial Thromboplastin Ratio 1.4 Sodium Level 140 136-145 mmol/L Potassium Level 4.2 3.5-5.1 mmol/L Chloride Level 104 98-107 mmol/L Carbon Dioxide Level 30 21-32 mmol/L Anion Gap 6.0 3-11 mmol/L Blood Urea Nitrogen 8 7-18 mg/dl Creatinine 0.46 0.60-1.20 mg/dl Est Creatinine Clear Calc Drug Dose 113.6 ml/min Estimated GFR () 120.1 Estimated GFR (Non- 103.7 BUN/Creatinine Ratio 17.7 10-20 Random Glucose 83 70-99 mg/dl Calcium Level 8.5 8.5-10.1 mg/dl
[2017-01-30] MEDS: CIPROFLOXACIN 500 MG TAB PO SCH (15:53)
--- NOTE | 2017-01-30 16:42 | Infectious Disease Progress Nt ---
Progress Note Date of Service January 30, 2017. Subjective Pt evaluation today including: conversation w/ patient, physical exam, chart review, lab review, review of studies, conversation w/ assessment consultant (pharmacy), review of inpatient medication list Patient is feeling better this morning. She did have an irrigating wound vac placed on the LLE. She has been afebrile. WBC count this morning was 4.90. Hgb was 8. Creatinine stable at 0.46. Patient changed to IV Levaquin and continued on IV Daptomycin. She denies N/V/D or pain of the LLE. All Other Systems: Reviewed and Negative Medications Current Inpatient Medications Medications (Trade) Dose Ordered Sig/Connor Route Start Time Stop Time Status Last Admin Dose Admin Acetaminophen (Tylenol Tab) 650 mg Q4H PRN PO 01/23/17 23:30 02/22/17 23:29 Ondansetron HCl (Zofran Inj) 4 mg Q6H PRN IV 01/23/17 23:30 02/22/17 23:29 Daptomycin (Consult) 1 ea DAILY PRN N/A 01/24/17 00:08 02/23/17 00:07 Alprazolam (Xanax Tab) 0.5 mg TID PRN PO 01/24/17 00:15 02/23/17 00:14 Amitriptyline HCl (Elavil Tab) 75 mg HS PO 01/24/17 21:00 02/23/17 20:59 01/29/17 21:23 75 MG Aspirin (Ecotrin Tab) 81 mg QAM PO 01/24/17 09:00 02/23/17 08:59 01/30/17 09:13 81 MG Carvedilol (Coreg Tab) 6.25 mg BID PO 01/24/17 09:00 02/23/17 08:59 01/29/17 21:23 6.25 MG Citalopram Hydrobromide (celeXA TAB) 20 mg DAILY PO 01/24/17 09:00 02/23/17 08:59 01/30/17 09:14 20 MG Ferrous Sulfate (Feosol Tab) 325 mg BID PO 01/24/17 09:00 02/23/17 08:59 01/30/17 09:14 325 MG Lactobacillus Acidophilus (Floranex Tab) 2 tab BID PO 01/24/17 09:00 02/23/17 08:59 01/30/17 09:14 2 TAB Oxycodone HCl (Oxycontin Tab) 60 mg Q12 PO 01/24/17 09:00 02/07/17 08:59 01/30/17 09:13 60 MG Oxycodone HCl (Roxicodone Immediate Rel Tab) 5 mg Q4H PRN PO 01/24/17 00:15 02/07/17 00:14 01/30/17 06:17 5 MG Trazodone HCl 50 mg 50 mg HS PO 01/24/17 21:00 02/23/17 20:59 01/29/17 21:24 50 MG Daptomycin/Sodium Chloride (Cubicin IV/Nss 50ml) 55.5 ml @ 120 mls/hr DAILY@0200 IV 01/24/17 02:00 02/03/17 01:59 01/30/17 01:58 120 MLS/HR Collagenase (Santyl Oint) 1 appln DAILY EXT 01/25/17 09:00 02/24/17 08:59 01/24/17 19:09 1 APPLN Acetic Acid 1 appln 1 appln Q8 IR 01/26/17 14:00 02/25/17 13:59 01/29/17 06:00 1 APPLN Potassium Chloride/Sodium Chloride (Nss + 20meq KCl 1000ml) 1,000 ml @ 75 mls/hr [id number] IV 01/29/17 12:30 02/28/17 12:29 01/30/17 13:53 75 MLS/HR Ciprofloxacin (Cipro Tab) 500 mg BID PO 01/30/17 16:00 02/09/17 15:59 01/30/17 15:53 500 MG Objective Vital Signs Date Time Temp Pulse Resp B/P Pulse Ox O2 Delivery O2 Flow Rate FiO2 01/30/17 15:19 37.2 77 18 115/65 93 Room Air 01/30/17 09:00 66 98/53 01/30/17 07:45 Room Air 01/30/17 07:23 36.7 66 16 98/60 92 Room Air 01/30/17 00:00 Room Air 01/29/17 23:15 37.6 73 16 112/57 94 Room Air 01/29/17 21:20 72 16 119/70 93 Room Air Physical Exam General Appearance: WD/WN, no apparent distress Eyes: normal inspection, sclerae normal ENT: hearing grossly normal Neck: supple, trachea midline Respiratory/Chest: no respiratory distress, no accessory muscle use Cardiovascular: + pertinent finding (regular rate) Extremities: + pertinent finding (left lower extremity with irrigating wound vac in place. Moderate edema of the left lower extremity noted. ) Neurologic/Psychiatric: alert, normal mood/affect Skin: warm/dry, no rash, + pertinent finding (mild erythema of the left lower extremity surrounding wound vac) Laboratory Results Last 24 Hours Test 01/30/17 06:27 White Blood Count 4.90 K/uL Red Blood Count 2.95 M/uL Hemoglobin 8.0 g/dL Hematocrit 26.5 % Mean Corpuscular Volume 89.8 fL Mean Corpuscular Hemoglobin 27.1 pg Mean Corpuscular Hemoglobin Concent 30.2 g/dl RDW Standard Deviation 48.3 fL RDW Coefficient of Variation 14.6 % Platelet Count 328 K/uL Mean Platelet Volume 8.4 fL Activated Partial Thromboplast Time 36.8 SECONDS Partial Thromboplastin Ratio 1.4 Sodium Level 140 mmol/L Potassium Level 4.2 mmol/L Chloride Level 104 mmol/L Carbon Dioxide Level 30 mmol/L Anion Gap 6.0 mmol/L Blood Urea Nitrogen 8 mg/dl Creatinine 0.46 mg/dl Est Creatinine Clear Calc Drug Dose 113.6 ml/min Estimated GFR () 120.1 Estimated GFR (Non- 103.7 BUN/Creatinine Ratio 17.7 Random Glucose 83 mg/dl Calcium Level 8.5 mg/dl Assessment and Plan Patient with worsening of chronic left lower extremity ulceration in the setting of PAD and history of polymicrobial infection of the wound now growing Pseudomonas from wound culture. She is currently on IV Levaquin and Daptomycin. Will change to PO Cipro and continue IV Daptomycin pending further wound care/ plastics recommendations. She may be able to transition to PO Bactrim again in the near future along with PO Cipro. We will continue to follow. PROVIDER ADDENDUM: Patient reviewed with Ms. Arndt. Agree with above assessment.
[2017-01-30] MEDS: AMITRIPTYLINE HCL 25 MG TAB PO SCH (21:52)
[2017-01-30] MEDS: TRAZODONE HCL 50 MG TAB PO SCH (21:52)
[2017-01-30] MEDS: ALPRAZOLAM 0.5 MG TAB PO PRN (22:02)
[2017-01-30 23:10] VITALS: BP 107/62; PULSE 71; TEMP 36.9; O2SAT 93
[2017-01-31] VITALS (11 sets, daily range): BP systolic 110–159; BP diastolic 56–77; PULSE 64–75; TEMP 36.7–37.2; O2SAT 92–96
[2017-01-31] MEDS: DAPTOmycin IV 275 MG in SODIUM CHLORIDE 0.9% 50ML 50 ML IV SCH (02:08)
[2017-01-31] MEDS: NSS + 20MEQ KCL 1000ML 1,000 ML IV SCH (02:15)
[2017-01-31] MEDS: ACETIC ACID 0.25% IRRIG SOLN 1000 ML PLCT IR SCH ×3 (05:51→22:00)
[2017-01-31 07:59] LABS: HEMATOCRIT 24.7 % (37-47); MEAN CELL VOLUME 89.5 fL (80-100); MEAN CORPUSCULAR HEMOGLOBIN 27.9 pg (25-34); MEAN CORPUSCULAR HGB CONC 31.2 g/dl (32-36); MEAN PLATELET VOLUME 8.2 fL (7.4-10.4); PLATELET COUNT 271 K/uL (130-400); RED BLOOD COUNT 2.76 M/uL (4.2-5.4)
[2017-01-31 08:07] LABS: PARTIAL THROMBOPLASTIN RATIO 1.4
[2017-01-31] MEDS: OXYCODONE HCL 20 MG TABCR (OXYCONTIN) PO SCH ×2 (08:24→20:42)
[2017-01-31] MEDS: LACTOBACILLUS ACIDOPHILUS (FLORANEX) TAB PO SCH ×2 (08:24→20:41)
[2017-01-31 08:25] LABS: CREATININE 0.45 mg/dl (0.60-1.20)
[2017-01-31] MEDS: CITALOPRAM 20 MG TAB PO SCH (08:25)
[2017-01-31] MEDS: ASPIRIN 81 MG ECTAB PO SCH (08:25)
[2017-01-31] MEDS: CIPROFLOXACIN 500 MG TAB PO SCH ×2 (08:26→20:41)
[2017-01-31] MEDS: CARVEDILOL 6.25 MG TAB PO SCH ×2 (08:26→20:41)
[2017-01-31] MEDS: FERROUS SULFATE 325 MG TAB PO SCH ×2 (08:26→20:41)
[2017-01-31] MEDS: COLLAGENASE OINT 30 GM TUBE EXT SCH (09:00)
--- NOTE | 2017-01-31 13:18 | Progress Note ---
Medicine Progress Note Date & Time of Visit: January 31, 2017 at 13:04. Subjective patient seen resting in bed, comfortable no bleeding on the leg noted today denies dyspnea, chest pain, dizziness, nausea, palpitations no other symptoms Objective Last 8 Hrs Date Time Temp Pulse Resp B/P Pulse Ox O2 Delivery O2 Flow Rate FiO2 01/31/17 10:08 94 Room Air 01/31/17 09:00 Room Air 01/31/17 07:54 36.9 64 15 110/65 94 Room Air Physical Exam: General- oriented x 3, not in distress, speaks in sentences with no effort Head- atraumatic Eyes- EOMI, anicteric ENT- oropharynx clear Neck- supple, no JVD Lungs- clear breath sounds bilaterally, no rales/wheezes Heart- normal rate, regular rhythm; no murmur Abdomen- normal bowel sounds, soft, nontender Extremities- left lower leg with mild pedal edema, no bleeding/discharge no calf tenderness; peripheral pulses intact Neuro- alert, oriented x 3; no gross focal deficits except for decreased motor strength and sensation on the left leg Skin- warm & dry Laboratory Results: Last 24 Hours Test 01/31/17 07:39 White Blood Count 4.70 K/uL Red Blood Count 2.76 M/uL Hemoglobin 7.7 g/dL Hematocrit 24.7 % Mean Corpuscular Volume 89.5 fL Mean Corpuscular Hemoglobin 27.9 pg Mean Corpuscular Hemoglobin Concent 31.2 g/dl RDW Standard Deviation 47.8 fL RDW Coefficient of Variation 14.7 % Platelet Count 271 K/uL Mean Platelet Volume 8.2 fL Activated Partial Thromboplast Time 35.1 SECONDS Partial Thromboplastin Ratio 1.4 Creatinine 0.45 mg/dl Est Creatinine Clear Calc Drug Dose 116.1 ml/min Estimated GFR () 121.0 Estimated GFR (Non- 104.4 Assessment & Plan NON HEALING WOUND LEFT LOWER LEG PAD WITH SEVERE SFA DISEASE S/P ATHERECTOMY AND BASE REMOVER 01/24/17 - S/P Successful Jetstream Atherectomy and BASE REMOVER of left SFA with drug-eluting balloon (Lutonix) on 01/24/17 - bleeding noted 01/30/17 resolved Plavix on hold, continue ASA per Cardiology Hg 7.7 1 unit of pRBC ordered today - rpt Hg tomorrow Chronic Wound Left Lower Extremity with Cellulitis H/O MRSA and chronic use of antibiotic Blood/Wound cultures-Blood culture-negative Wound culture-Pseudomonas ,sensitive to current Antibiotic Doppler US: No DVT - ID on board currently on Dapto + Cipro possible transition to oral Abx on discharge - Wound Care SVC on board may need wound vac on discharge - Dr. Anderson also on board, no plans of repeating graft at this time Anemia Likely anemia of Chronic disease complicated by recurrent infection possible Acute blood loss secondary to wound side bleeding - given 2 units Hg 7.7 1 unit of pRBC ordered today PAD Presented with rest pain Arterial Doppler:no sonographic evidence of high-grade stenosis or focal vessel cut off - was placed on heparin drip - Consult Vascular surgery S/P Successful Jetstream Atherectomy and BASE REMOVER of left SFA with drug-eluting balloon (Lutonix) on 01/24/17 Continue Aspirin and Plavix for 1 month recommended Plavix on hold secondary to wound side bleeding on Aspirin HTN Stable continue Coreg BID HLD Hold statin while on daptomycin DEPRESSION Stable Continue home meds H/O LYMPHOSARCOMA stable DVT PX Heparin held due to bleeding 01/30/17 CODE STATUS: FULL CODE DISPOSITION management of anemia in progress will need to verify with ID re: IV abx and with wound care re: wound vac patient prefers to go home with home health, IV abx and wound vac if necessary Current Inpatient Medications: Current Inpatient Medications Medications (Trade) Dose Ordered Sig/Connor Route Start Time Stop Time Status Last Admin Dose Admin Acetaminophen (Tylenol Tab) 650 mg Q4H PRN PO 01/23/17 23:30 02/22/17 23:29 Ondansetron HCl (Zofran Inj) 4 mg Q6H PRN IV 01/23/17 23:30 02/22/17 23:29 Daptomycin (Consult) 1 ea DAILY PRN N/A 01/24/17 00:08 02/23/17 00:07 Alprazolam (Xanax Tab) 0.5 mg TID PRN PO 01/24/17 00:15 02/23/17 00:14 01/30/17 22:02 0.5 MG Amitriptyline HCl (Elavil Tab) 75 mg HS PO 01/24/17 21:00 02/23/17 20:59 01/30/17 21:52 75 MG Aspirin (Ecotrin Tab) 81 mg QAM PO 01/24/17 09:00 02/23/17 08:59 01/31/17 08:25 81 MG Carvedilol (Coreg Tab) 6.25 mg BID PO 01/24/17 09:00 02/23/17 08:59 01/31/17 08:26 6.25 MG Citalopram Hydrobromide (celeXA TAB) 20 mg DAILY PO 01/24/17 09:00 02/23/17 08:59 01/31/17 08:25 20 MG Ferrous Sulfate (Feosol Tab) 325 mg BID PO 01/24/17 09:00 02/23/17 08:59 01/31/17 08:26 325 MG Lactobacillus Acidophilus (Floranex Tab) 2 tab BID PO 01/24/17 09:00 02/23/17 08:59 01/31/17 08:24 2 TAB Oxycodone HCl (Oxycontin Tab) 60 mg Q12 PO 01/24/17 09:00 02/07/17 08:59 01/31/17 08:24 60 MG Oxycodone HCl (Roxicodone Immediate Rel Tab) 5 mg Q4H PRN PO 01/24/17 00:15 02/07/17 00:14 01/30/17 19:45 5 MG Trazodone HCl 50 mg 50 mg HS PO 01/24/17 21:00 02/23/17 20:59 01/30/17 21:52 50 MG Daptomycin/Sodium Chloride (Cubicin IV/Nss 50ml) 55.5 ml @ 120 mls/hr DAILY@0200 IV 01/24/17 02:00 02/03/17 01:59 01/31/17 02:08 120 MLS/HR Collagenase (Santyl Oint) 1 appln DAILY EXT 01/25/17 09:00 02/24/17 08:59 01/24/17 19:09 1 APPLN Acetic Acid 1 appln 1 appln Q8 IR 01/26/17 14:00 02/25/17 13:59 01/29/17 06:00 1 APPLN Potassium Chloride/Sodium Chloride (Nss + 20meq KCl 1000ml) 1,000 ml @ 75 mls/hr [id number] IV 01/29/17 12:30 02/28/17 12:29 01/31/17 02:15 75 MLS/HR Ciprofloxacin (Cipro Tab) 500 mg BID PO 01/30/17 16:00 02/09/17 15:59 01/31/17 08:26 500 MG
[2017-01-31] MEDS: OXYCODONE HCL IR 5 MG TAB (IMMEDIATE RELEASE) PO PRN (13:52)
--- NOTE | 2017-01-31 17:00 | Infectious Disease Progress Nt ---
Progress Note Date of Service January 31, 2017. Subjective Pt evaluation today including: conversation w/ patient, physical exam, chart review, lab review, review of studies, review of inpatient medication list Patient's white blood cell was 4.70 today. Hemoglobin slightly lower today at 7.7. Her creatinine was stable. She continues to tolerate her antibiotic therapy well. I discussed this patient's case with Dr. Beltran. All Other Systems: Reviewed and Negative Medications Current Inpatient Medications Medications (Trade) Dose Ordered Sig/Connor Route Start Time Stop Time Status Last Admin Dose Admin Acetaminophen (Tylenol Tab) 650 mg Q4H PRN PO 01/23/17 23:30 02/22/17 23:29 Ondansetron HCl (Zofran Inj) 4 mg Q6H PRN IV 01/23/17 23:30 02/22/17 23:29 Daptomycin (Consult) 1 ea DAILY PRN N/A 01/24/17 00:08 02/23/17 00:07 Alprazolam (Xanax Tab) 0.5 mg TID PRN PO 01/24/17 00:15 02/23/17 00:14 01/30/17 22:02 0.5 MG Amitriptyline HCl (Elavil Tab) 75 mg HS PO 01/24/17 21:00 02/23/17 20:59 01/30/17 21:52 75 MG Aspirin (Ecotrin Tab) 81 mg QAM PO 01/24/17 09:00 02/23/17 08:59 01/31/17 08:25 81 MG Carvedilol (Coreg Tab) 6.25 mg BID PO 01/24/17 09:00 02/23/17 08:59 01/31/17 08:26 6.25 MG Citalopram Hydrobromide (celeXA TAB) 20 mg DAILY PO 01/24/17 09:00 02/23/17 08:59 01/31/17 08:25 20 MG Ferrous Sulfate (Feosol Tab) 325 mg BID PO 01/24/17 09:00 02/23/17 08:59 01/31/17 08:26 325 MG Lactobacillus Acidophilus (Floranex Tab) 2 tab BID PO 01/24/17 09:00 02/23/17 08:59 01/31/17 08:24 2 TAB Oxycodone HCl (Oxycontin Tab) 60 mg Q12 PO 01/24/17 09:00 02/07/17 08:59 01/31/17 08:24 60 MG Oxycodone HCl (Roxicodone Immediate Rel Tab) 5 mg Q4H PRN PO 01/24/17 00:15 02/07/17 00:14 01/31/17 13:52 5 MG Trazodone HCl 50 mg 50 mg HS PO 01/24/17 21:00 02/23/17 20:59 01/30/17 21:52 50 MG Daptomycin/Sodium Chloride (Cubicin IV/Nss 50ml) 55.5 ml @ 120 mls/hr DAILY@0200 IV 01/24/17 02:00 02/03/17 01:59 01/31/17 02:08 120 MLS/HR Collagenase (Santyl Oint) 1 appln DAILY EXT 01/25/17 09:00 02/24/17 08:59 01/24/17 19:09 1 APPLN Acetic Acid (Acetic Acid 0.25% Irrig Soln) 1 appln Q8 IR 01/26/17 14:00 02/25/17 13:59 01/29/17 06:00 1 APPLN Ciprofloxacin (Cipro Tab) 500 mg BID PO 01/30/17 16:00 02/09/17 15:59 01/31/17 08:26 500 MG Objective Vital Signs Date Time Temp Pulse Resp B/P Pulse Ox O2 Delivery O2 Flow Rate FiO2 01/31/17 15:25 37.1 68 18 115/66 96 01/31/17 15:14 37.0 68 16 113/60 92 01/31/17 10:08 94 Room Air 01/31/17 09:00 Room Air 01/31/17 07:54 36.9 64 15 110/65 94 Room Air 01/31/17 00:00 Room Air 01/30/17 23:10 36.9 71 16 107/62 93 Room Air Physical Exam General Appearance: WD/WN, no apparent distress Eyes: normal inspection, sclerae normal ENT: hearing grossly normal Neck: supple, trachea midline Respiratory/Chest: chest non-tender, lungs clear, normal breath sounds, no respiratory distress, no accessory muscle use Cardiovascular: regular rate, rhythm, no murmur Abdomen: normal bowel sounds, non tender, soft Neurologic/Psychiatric: alert, normal mood/affect Skin: warm/dry, no rash, + pertinent finding (Bandage in place on LLE- saturated at the heel) Laboratory Results Last 24 Hours Test 01/31/17 07:39 White Blood Count 4.70 K/uL Red Blood Count 2.76 M/uL Hemoglobin 7.7 g/dL Hematocrit 24.7 % Mean Corpuscular Volume 89.5 fL Mean Corpuscular Hemoglobin 27.9 pg Mean Corpuscular Hemoglobin Concent 31.2 g/dl RDW Standard Deviation 47.8 fL RDW Coefficient of Variation 14.7 % Platelet Count 271 K/uL Mean Platelet Volume 8.2 fL Activated Partial Thromboplast Time 35.1 SECONDS Partial Thromboplastin Ratio 1.4 Creatinine 0.45 mg/dl Est Creatinine Clear Calc Drug Dose 116.1 ml/min Estimated GFR () 121.0 Estimated GFR (Non- 104.4 Assessment and Plan Patient with worsening of chronic left lower extremity ulceration in the setting of PAD and history of polymicrobial infection of the wound now growing Pseudomonas from wound culture. She is currently on PO Cipro and Daptomycin. She may be able to transition to PO Bactrim again in the next 1-2 days. We will continue to follow. PROVIDER ADDENDUM: Patient reviewed with Ms. Arndt. Agree with above assessment.
[2017-01-31] MEDS: AMITRIPTYLINE HCL 25 MG TAB PO SCH (20:41)
[2017-01-31] MEDS: TRAZODONE HCL 50 MG TAB PO SCH (20:41)
[2017-01-31] MEDS: ALPRAZOLAM 0.5 MG TAB PO PRN (20:41)
[2017-02-01] MEDS: DAPTOmycin IV 275 MG in SODIUM CHLORIDE 0.9% 50ML 50 ML IV SCH (01:55)
[2017-02-01] MEDS: ACETIC ACID 0.25% IRRIG SOLN 1000 ML PLCT IR SCH ×3 (06:00→21:17)
[2017-02-01 07:26] VITALS: BP 113/69; PULSE 65; TEMP 36.7; O2SAT 92
[2017-02-01] MEDS: CARVEDILOL 6.25 MG TAB PO SCH ×2 (08:13→21:14)
[2017-02-01] MEDS: FERROUS SULFATE 325 MG TAB PO SCH ×2 (08:13→21:14)
[2017-02-01] MEDS: CITALOPRAM 20 MG TAB PO SCH (08:13)
[2017-02-01] MEDS: OXYCODONE HCL 20 MG TABCR (OXYCONTIN) PO SCH ×2 (08:13→21:14)
[2017-02-01] MEDS: LACTOBACILLUS ACIDOPHILUS (FLORANEX) TAB PO SCH ×2 (08:13→21:14)
[2017-02-01] MEDS: ASPIRIN 81 MG ECTAB PO SCH (08:14)
[2017-02-01] MEDS: CIPROFLOXACIN 500 MG TAB PO SCH ×2 (08:14→21:14)
[2017-02-01 08:29] LABS: BUN/CREATININE RATIO 20.2 (10-20); CREATININE 0.43 mg/dl (0.60-1.20); POTASSIUM 3.9 mmol/L (3.5-5.1)
[2017-02-01 08:41] LABS: CALCIUM 9.1 mg/dl (8.5-10.1)
[2017-02-01 08:42] LABS: BASO % 0.2 %; BASO ABS # 0.01 K/uL (0-0.2); COMPLETE YES; IG% 0.5 %; LYMPH % 40.9 %; LYMPH ABS # 1.76 K/uL (1.2-3.4); MEAN CELL VOLUME 88.6 fL (80-100); MEAN CORPUSCULAR HEMOGLOBIN 28.8 pg (25-34); MEAN CORPUSCULAR HGB CONC 32.5 g/dl (32-36); MEAN PLATELET VOLUME 8.6 fL (7.4-10.4); MONO % 8.4 %; PLATELET COUNT 289 K/uL (130-400); RED BLOOD COUNT 3.16 M/uL (4.2-5.4)
[2017-02-01] MEDS ORDERED: NURSING VERBAL MED ORDER ONE (12:00)
--- NOTE | 2017-02-01 13:54 | DIAGNOSTIC IMAGING REPORT ---
LEFT LOWER EXTREMITY VENOUS DOPPLER HISTORY: Left calf pain COMPARISON STUDY: None. FINDINGS: There is normal compressibility, flow, and augmentation within the left lower extremity deep venous system. Mildly enlarged left inguinal lymph nodes. IMPRESSION: No DVT within the left lower extremity. Mild left inguinal lymphadenopathy. Electronically signed by: Akash Gross M.D. 02/01/2017 1:53 PM Dictated Date/Time: 02/01/2017 1:52 PM
--- NOTE | 2017-02-01 15:29 | Progress Note ---
Progress Note Date of Service February 01, 2017. Progress Note Seen at bedside with YINs. Patient complaining of left calf/LE pain where she is usually insensate. Irrigating VAC was discontinued due to bleeding afebrile VSS LLE with black, wet eschar, yellow slough, peripheral erythema, minimal pink tissue, heel completely necrotic A/P Chronic non healing LLE wound in the setting of PAD, peripheral neuropathy, poor compliance with offloading U/S ordered to eval for DVT Continue IV ABX Repeat culture obtained resume acetic acid dressings for now will ask Dr. Sutton (managing wound care MD) to see patient when he returns Due to above factors, limb salvage seems less likely over time
[2017-02-01 15:33] VITALS: BP 114/67; PULSE 60; TEMP 36.9; O2SAT 95
--- NOTE | 2017-02-01 17:46 | Progress Note ---
Medicine Progress Note Date & Time of Visit: February 01, 2017 at 17:43. Subjective patient seen resting in bed, comfortable denies leg pain no fever/chills no bleeding recurrence denies chest pain, dyspnea, palpitations, dizziness no other symptoms Objective Last 8 Hrs Date Time Temp Pulse Resp B/P Pulse Ox O2 Delivery O2 Flow Rate FiO2 02/01/17 15:33 36.9 60 16 114/67 95 Room Air Physical Exam: General- oriented x 3, not in distress, speaks in sentences with no effort Eyes- anicteric Neck- no JVD Lungs- clear breath sounds no rales/wheezes b/l Heart- normal rate, regular rhythm; no murmur Abdomen- normal bowel sounds, non distended, soft, nontender Extremities- left lower leg with mild pedal edema, no bleeding/discharge right leg essentially normal Neuro- alert, oriented x 3; no gross focal deficits except for decreased motor strength and sensation on the left leg Skin- warm & dry Laboratory Results: Last 24 Hours Test 02/01/17 07:30 02/01/17 08:25 Sodium Level 140 mmol/L Potassium Level 3.9 mmol/L Chloride Level 106 mmol/L Carbon Dioxide Level 25 mmol/L Anion Gap 9.0 mmol/L Blood Urea Nitrogen 9 mg/dl Creatinine 0.43 mg/dl Est Creatinine Clear Calc Drug Dose 121.5 ml/min Estimated GFR () 122.8 Estimated GFR (Non- 106.0 BUN/Creatinine Ratio 20.2 Random Glucose 76 mg/dl Calcium Level 9.1 mg/dl White Blood Count 4.30 K/uL Red Blood Count 3.16 M/uL Hemoglobin 9.1 g/dL Hematocrit 28.0 % Mean Corpuscular Volume 88.6 fL Mean Corpuscular Hemoglobin 28.8 pg Mean Corpuscular Hemoglobin Concent 32.5 g/dl Platelet Count 289 K/uL Mean Platelet Volume 8.6 fL Neutrophils (%) (Auto) 44.0 % Lymphocytes (%) (Auto) 40.9 % Monocytes (%) (Auto) 8.4 % Eosinophils (%) (Auto) 6.0 % Basophils (%) (Auto) 0.2 % Neutrophils # (Auto) 1.89 K/uL Lymphocytes # (Auto) 1.76 K/uL Monocytes # (Auto) 0.36 K/uL Eosinophils # (Auto) 0.26 K/uL Basophils # (Auto) 0.01 K/uL RDW Standard Deviation 48.6 fL RDW Coefficient of Variation 14.9 % Immature Granulocyte % (Auto) 0.5 % Immature Granulocyte # (Auto) 0.02 K/uL Date/Time Source Procedure Growth Status 02/01/17 11:30 Drainage-Deep Leg Lower Left Gram Stain - Final Resulted 02/01/17 11:30 Drainage-Deep Leg Lower Left Wound Culture Pending Resulted Assessment & Plan NON HEALING WOUND LEFT LOWER LEG PAD WITH SEVERE SFA DISEASE S/P ATHERECTOMY AND SUPERVISOR DECORATING 01/24/17 - S/P Successful Jetstream Atherectomy and SUPERVISOR DECORATING of left SFA with drug-eluting balloon (Lutonix) on 01/24/17 - bleeding noted 01/30/17 resolved Plavix on hold, continue ASA per Cardiology Hg 7.7 1 unit of pRBC ordered Hg improved to 9 - monitor Hg Chronic Wound Left Lower Extremity with Cellulitis H/O MRSA and chronic use of antibiotic Blood/Wound cultures-Blood culture-negative Wound culture-Pseudomonas ,sensitive to current Antibiotic Doppler US: No DVT - ID on board currently on Dapto + Cipro possible transition to oral Abx on discharge- Bactrim - Wound Care SVC on board may need wound vac on discharge - Dr. Anderson also on board, no plans of repeating graft at this time - awaiting evaluation by Dr. Sutton Anemia Likely anemia of Chronic disease complicated by recurrent infection possible Acute blood loss secondary to wound side bleeding - given 2 units Hg 7.7 1 unit of pRBC ordered Hg improved to 9 - monitor Hg PAD Presented with rest pain Arterial Doppler:no sonographic evidence of high-grade stenosis or focal vessel cut off - was placed on heparin drip - Consult Vascular surgery S/P Successful Jetstream Atherectomy and SUPERVISOR DECORATING of left SFA with drug-eluting balloon (Lutonix) on 01/24/17 Continue Aspirin and Plavix for 1 month recommended Plavix on hold secondary to wound side bleeding on Aspirin HTN Stable continue Coreg BID HLD Hold statin while on daptomycin DEPRESSION Stable Continue home meds H/O LYMPHOSARCOMA stable DVT PX Heparin held due to bleeding 01/30/17 ambulation encouraged SCDs avoided as patient has PAD CODE STATUS: FULL CODE DISPOSITION will need to verify with ID re: IV abx and with wound care re: wound vac patient prefers to go home with home health, IV abx and wound vac if necessary Current Inpatient Medications: Current Inpatient Medications Medications (Trade) Dose Ordered Sig/Connor Route Start Time Stop Time Status Last Admin Dose Admin Acetaminophen (Tylenol Tab) 650 mg Q4H PRN PO 01/23/17 23:30 02/22/17 23:29 Ondansetron HCl (Zofran Inj) 4 mg Q6H PRN IV 01/23/17 23:30 02/22/17 23:29 Daptomycin (Consult) 1 ea DAILY PRN N/A 01/24/17 00:08 02/23/17 00:07 Alprazolam (Xanax Tab) 0.5 mg TID PRN PO 01/24/17 00:15 02/23/17 00:14 01/31/17 20:41 0.5 MG Amitriptyline HCl (Elavil Tab) 75 mg HS PO 01/24/17 21:00 02/23/17 20:59 01/31/17 20:41 75 MG Aspirin (Ecotrin Tab) 81 mg QAM PO 01/24/17 09:00 02/23/17 08:59 02/01/17 08:14 81 MG Carvedilol (Coreg Tab) 6.25 mg BID PO 01/24/17 09:00 02/23/17 08:59 02/01/17 08:13 6.25 MG Citalopram Hydrobromide (celeXA TAB) 20 mg DAILY PO 01/24/17 09:00 02/23/17 08:59 02/01/17 08:13 20 MG Ferrous Sulfate (Feosol Tab) 325 mg BID PO 01/24/17 09:00 02/23/17 08:59 02/01/17 08:13 325 MG Lactobacillus Acidophilus (Floranex Tab) 2 tab BID PO 01/24/17 09:00 02/23/17 08:59 02/01/17 08:13 2 TAB Oxycodone HCl (Oxycontin Tab) 60 mg Q12 PO 01/24/17 09:00 02/07/17 08:59 02/01/17 08:13 60 MG Oxycodone HCl (Roxicodone Immediate Rel Tab) 5 mg Q4H PRN PO 01/24/17 00:15 02/07/17 00:14 01/31/17 13:52 5 MG Trazodone HCl 50 mg 50 mg HS PO 01/24/17 21:00 02/23/17 20:59 01/31/17 20:41 50 MG Daptomycin/Sodium Chloride (Cubicin IV/Nss 50ml) 55.5 ml @ 120 mls/hr DAILY@0200 IV 01/24/17 02:00 02/03/17 01:59 02/01/17 01:55 120 MLS/HR Acetic Acid (Acetic Acid 0.25% Irrig Soln) 1 appln Q8 IR 01/26/17 14:00 02/25/17 13:59 01/29/17 06:00 1 APPLN Ciprofloxacin (Cipro Tab) 500 mg BID PO 01/30/17 16:00 02/09/17 15:59 02/01/17 08:14 500 MG
[2017-02-01] MEDS: ALPRAZOLAM 0.5 MG TAB PO PRN (18:03)
[2017-02-01] MEDS: OXYCODONE HCL IR 5 MG TAB (IMMEDIATE RELEASE) PO PRN (18:03)
[2017-02-01 21:09] VITALS: BP 149/78; PULSE 71
[2017-02-01] MEDS: AMITRIPTYLINE HCL 25 MG TAB PO SCH (21:14)
[2017-02-01] MEDS: TRAZODONE HCL 50 MG TAB PO SCH (21:14)
[2017-02-01 23:05] VITALS: BP 157/75; PULSE 74; TEMP 37; O2SAT 94
[2017-02-02] MEDS: DAPTOmycin IV 275 MG in SODIUM CHLORIDE 0.9% 50ML 50 ML IV SCH (02:02)
[2017-02-02] MEDS: OXYCODONE HCL IR 5 MG TAB (IMMEDIATE RELEASE) PO PRN ×3 (03:03→17:15)
[2017-02-02] MEDS: ACETIC ACID 0.25% IRRIG SOLN 1000 ML PLCT IR SCH ×3 (05:50→21:39)
[2017-02-02 07:19] LABS: BASO % 0.6 %; BASO ABS # 0.03 K/uL (0-0.2); COMPLETE YES; EOS % 6.5 %; HEMATOCRIT 29.5 % (37-47); IG% 0.4 %; LYMPH % 40.4 %; LYMPH ABS # 1.99 K/uL (1.2-3.4); MEAN CELL VOLUME 88.3 fL (80-100); MEAN CORPUSCULAR HEMOGLOBIN 27.8 pg (25-34); MEAN CORPUSCULAR HGB CONC 31.5 g/dl (32-36); MEAN PLATELET VOLUME 8.7 fL (7.4-10.4); MONO % 8.9 %; NEUT % 43.2 %; PLATELET COUNT 321 K/uL (130-400); RED BLOOD COUNT 3.34 M/uL (4.2-5.4); WHITE BLOOD COUNT 4.92 K/uL (4.8-10.8)
[2017-02-02 07:47] LABS: BUN/CREATININE RATIO 21.7 (10-20); CALCIUM 8.6 mg/dl (8.5-10.1); CREATININE 0.51 mg/dl (0.60-1.20)
[2017-02-02 07:48] VITALS: BP 111/63; PULSE 62; TEMP 36.3; O2SAT 91
[2017-02-02 08:21] VITALS: O2SAT 91
[2017-02-02] MEDS: OXYCODONE HCL 20 MG TABCR (OXYCONTIN) PO SCH ×2 (09:19→21:08)
[2017-02-02] MEDS: ASPIRIN 81 MG ECTAB PO SCH (09:19)
[2017-02-02] MEDS: LACTOBACILLUS ACIDOPHILUS (FLORANEX) TAB PO SCH ×2 (09:20→21:08)
[2017-02-02] MEDS: CARVEDILOL 6.25 MG TAB PO SCH ×2 (09:21→21:07)
[2017-02-02] MEDS: CITALOPRAM 20 MG TAB PO SCH (09:21)
[2017-02-02] MEDS: CIPROFLOXACIN 500 MG TAB PO SCH (09:21)
[2017-02-02] MEDS: FERROUS SULFATE 325 MG TAB PO SCH ×2 (09:21→22:02)
[2017-02-02 15:05] VITALS: BP 117/74; PULSE 53; TEMP 36.9; O2SAT 93
--- NOTE | 2017-02-02 16:14 | Infectious Disease Progress Nt ---
Progress Note Date of Service February 02, 2017. Subjective Pt evaluation today including: conversation w/ patient, physical exam, chart review, lab review, review of studies, conversation w/ [facility] consultant (Dr. Beltran) , review of inpatient medication list Patient is feeling well today. She states that she is fatigued today. Awaiting opinion of wound care and plastics. She did have repeat wound culture taken which is growing gram-negative bacilli. She continues on p.o. Cipro and IV daptomycin. Her white blood cell count today was 4.92. Her hemoglobin was 9.3. Her creatinine was stable at 0.5. She did have repeat lower extremity ultrasound which showed no evidence of DVT, but did show mild left inguinal lymphadenopathy. The patient did have repeat inpatient wound images taken as well which were reviewed by me. All Other Systems: Reviewed and Negative Medications Current Inpatient Medications Medications (Trade) Dose Ordered Sig/Connor Route Start Time Stop Time Status Last Admin Dose Admin Acetaminophen (Tylenol Tab) 650 mg Q4H PRN PO 01/23/17 23:30 02/22/17 23:29 Ondansetron HCl (Zofran Inj) 4 mg Q6H PRN IV 01/23/17 23:30 02/22/17 23:29 Daptomycin (Consult) 1 ea DAILY PRN N/A 01/24/17 00:08 02/23/17 00:07 Alprazolam (Xanax Tab) 0.5 mg TID PRN PO 01/24/17 00:15 02/23/17 00:14 02/01/17 18:03 0.5 MG Amitriptyline HCl (Elavil Tab) 75 mg HS PO 01/24/17 21:00 02/23/17 20:59 02/01/17 21:14 75 MG Aspirin (Ecotrin Tab) 81 mg QAM PO 01/24/17 09:00 02/23/17 08:59 02/02/17 09:19 81 MG Carvedilol (Coreg Tab) 6.25 mg BID PO 01/24/17 09:00 02/23/17 08:59 02/02/17 09:21 6.25 MG Citalopram Hydrobromide (celeXA TAB) 20 mg DAILY PO 01/24/17 09:00 02/23/17 08:59 02/02/17 09:21 20 MG Ferrous Sulfate (Feosol Tab) 325 mg BID PO 01/24/17 09:00 02/23/17 08:59 02/02/17 09:21 325 MG Lactobacillus Acidophilus (Floranex Tab) 2 tab BID PO 01/24/17 09:00 02/23/17 08:59 02/02/17 09:20 2 TAB Oxycodone HCl (Oxycontin Tab) 60 mg Q12 PO 01/24/17 09:00 02/07/17 08:59 02/02/17 09:19 60 MG Oxycodone HCl (Roxicodone Immediate Rel Tab) 5 mg Q4H PRN PO 01/24/17 00:15 02/07/17 00:14 02/02/17 09:19 5 MG Trazodone HCl 50 mg 50 mg HS PO 01/24/17 21:00 02/23/17 20:59 02/01/17 21:14 50 MG Daptomycin/Sodium Chloride (Cubicin IV/Nss 50ml) 55.5 ml @ 120 mls/hr DAILY@0200 IV 01/24/17 02:00 02/06/17 01:59 02/02/17 02:02 120 MLS/HR Acetic Acid (Acetic Acid 0.25% Irrig Soln) 1 appln Q8 IR 01/26/17 14:00 02/25/17 13:59 02/02/17 14:00 1 APPLN Ciprofloxacin (Cipro Tab) 500 mg BID PO 01/30/17 16:00 02/09/17 15:59 02/02/17 09:21 500 MG Objective Vital Signs Date Time Temp Pulse Resp B/P Pulse Ox O2 Delivery O2 Flow Rate FiO2 02/02/17 15:05 36.9 53 16 117/74 93 Room Air 02/02/17 08:21 91 Room Air 02/02/17 07:48 36.3 62 16 111/63 91 Room Air 02/02/17 07:30 Room Air 02/01/17 23:05 37.0 74 16 157/75 94 Room Air 02/01/17 21:09 71 149/78 02/01/17 19:45 Room Air Physical Exam General Appearance: WD/WN, no apparent distress Eyes: normal inspection, sclerae normal ENT: hearing grossly normal Neck: supple, trachea midline Respiratory/Chest: no respiratory distress, no accessory muscle use Cardiovascular: regular rate, rhythm Extremities: + pertinent finding (Left lower extremity with dressing in place. Mild to moderate edema noted.) Neurologic/Psychiatric: alert, normal mood/affect Skin: normal color, warm/dry, no rash Laboratory Results RUN DATE: 02/02/17 [facility] LAB PAGE 1 RUN TIME: 1126 Specimen Inquiry PATIENT: ROXANNE LOYD LOC: [facility] U # : [id number] AGE/SX: 67/F ROOM: [facility] REG : 01/23/[address]: Garret Beltran MD : 1950 BED: 2 DIS : STATUS: ADM IN TLOC: SPEC #: [id number] JANE: 02/01/17-1130 STATUS: RES REQ #: [id number] RECD: 02/01/17-[address]: Norma Anderson MD SOURCE: DRAIN-DEEP ENTR: 02/01/17-[address]: Shubham Timmons MD [facility]: LEG MAGUE Leal, Zay Deleon, Garret Patel , Braden Melendez MD ORDERED: DEP AURELIA CUL/SMR COMMENTS: Has Specimen Been Obtained/Collected? Y Procedure Result Verified Site GRAM STAIN Final 02/01/17-1448 RESULT MANY POLYS NO ORGANISMS SEEN DEEP WOUND CULTURE Preliminary 02/02/17-1126 Organism 1 GRAM NEGATIVE BACILLI QUANITY RARE SENS SENSITIVITY TO FOLLOW Item Value Date Time Gram Stain - Final Resulted 02/01/17 1130 Drainage-Deep Leg Lower Left Gram Stain - Final Complete 01/24/17 0135 Ulcer Leg Lower Left Blood Culture - Final Complete 01/24/17 003 Blood NO GROWTH Blood Culture - Final Complete 01/24/1729 Blood NO GROWTH Last 24 Hours Test 02/02/17 06:43 White Blood Count 4.92 K/uL Red Blood Count 3.34 M/uL Hemoglobin 9.3 g/dL Hematocrit 29.5 % Mean Corpuscular Volume 88.3 fL Mean Corpuscular Hemoglobin 27.8 pg Mean Corpuscular Hemoglobin Concent 31.5 g/dl Platelet Count 321 K/uL Mean Platelet Volume 8.7 fL Neutrophils (%) (Auto) 43.2 % Lymphocytes (%) (Auto) 40.4 % Monocytes (%) (Auto) 8.9 % Eosinophils (%) (Auto) 6.5 % Basophils (%) (Auto) 0.6 % Neutrophils # (Auto) 2.12 K/uL Lymphocytes # (Auto) 1.99 K/uL Monocytes # (Auto) 0.44 K/uL Eosinophils # (Auto) 0.32 K/uL Basophils # (Auto) 0.03 K/uL RDW Standard Deviation 46.5 fL RDW Coefficient of Variation 14.4 % Immature Granulocyte % (Auto) 0.4 % Immature Granulocyte # (Auto) 0.02 K/uL Sodium Level 140 mmol/L Potassium Level 4.0 mmol/L Chloride Level 106 mmol/L Carbon Dioxide Level 30 mmol/L Anion Gap 4.0 mmol/L Blood Urea Nitrogen 11 mg/dl Creatinine 0.51 mg/dl Est Creatinine Clear Calc Drug Dose 102.4 ml/min Estimated GFR () 116.1 Estimated GFR (Non- 100.2 BUN/Creatinine Ratio 21.7 Random Glucose 75 mg/dl Calcium Level 8.6 mg/dl Assessment and Plan Patient with severe chronic left lower extremity ulceration in the setting of PAD and history of polymicrobial infection of the wound since admission growing Pseudomonas. She is currently on p.o. Cipro and daptomycin. Newest culture is growing Gram-negative bacilli, therefore will discontinue Cipro and start IV Zosyn pending culture results. Continue IV therapy pending wound care and plastics decisions on further intervention. Ultimately hope to transition this patient back to oral therapy, but will continue IV therapy pending further improvement. PROVIDER ADDENDUM: Patient reviewed with Ms. Arndt. Agree with above assessment.
[2017-02-02] MEDS ORDERED: PIPERACILL/TAZOBAC IV 3.375 GM in DEXTROSE 5% 100ML 100 ML IV ONE (16:30)
[2017-02-02] MEDS ORDERED: PIPERACILL/TAZOBAC CONSULT ACTIVE PRN (16:30)
--- NOTE | 2017-02-02 18:46 | Progress Note ---
Medicine Progress Note Date & Time of Visit: February 02, 2017 at 18:43. Subjective resting in bed, comfortable denies dyspnea, chest pain, dizziness not much leg pain no fever/chills no other symptoms Objective Last 8 Hrs Date Time Temp Pulse Resp B/P Pulse Ox O2 Delivery O2 Flow Rate FiO2 02/02/17 16:30 Room Air 02/02/17 15:05 36.9 53 16 117/74 93 Room Air Physical Exam: General- oriented x 3, not in distress, speaks in sentences with no effort Eyes- anicteric Neck- no JVD Lungs- clear BS BL, no rales/wheezes Heart- normal rate, regular rhythm; no murmur Abdomen- normal bowel sounds, non distended, soft, nontender Extremities- left lower leg with mild pedal edema, no bleeding/discharge, dressing clean right leg essentially normal Neuro- alert, oriented x 3;no gross focal deficits except for decreased motor strength and sensation on the left leg Skin- warm & dry Laboratory Results: Last 24 Hours Test 02/02/17 06:43 White Blood Count 4.92 K/uL Red Blood Count 3.34 M/uL Hemoglobin 9.3 g/dL Hematocrit 29.5 % Mean Corpuscular Volume 88.3 fL Mean Corpuscular Hemoglobin 27.8 pg Mean Corpuscular Hemoglobin Concent 31.5 g/dl Platelet Count 321 K/uL Mean Platelet Volume 8.7 fL Neutrophils (%) (Auto) 43.2 % Lymphocytes (%) (Auto) 40.4 % Monocytes (%) (Auto) 8.9 % Eosinophils (%) (Auto) 6.5 % Basophils (%) (Auto) 0.6 % Neutrophils # (Auto) 2.12 K/uL Lymphocytes # (Auto) 1.99 K/uL Monocytes # (Auto) 0.44 K/uL Eosinophils # (Auto) 0.32 K/uL Basophils # (Auto) 0.03 K/uL RDW Standard Deviation 46.5 fL RDW Coefficient of Variation 14.4 % Immature Granulocyte % (Auto) 0.4 % Immature Granulocyte # (Auto) 0.02 K/uL Sodium Level 140 mmol/L Potassium Level 4.0 mmol/L Chloride Level 106 mmol/L Carbon Dioxide Level 30 mmol/L Anion Gap 4.0 mmol/L Blood Urea Nitrogen 11 mg/dl Creatinine 0.51 mg/dl Est Creatinine Clear Calc Drug Dose 102.4 ml/min Estimated GFR () 116.1 Estimated GFR (Non- 100.2 BUN/Creatinine Ratio 21.7 Random Glucose 75 mg/dl Calcium Level 8.6 mg/dl Assessment & Plan NON HEALING WOUND LEFT LOWER LEG PAD WITH SEVERE SFA DISEASE S/P ATHERECTOMY AND BOARDER HAND 01/24/17 - S/P Successful Jetstream Atherectomy and BOARDER HAND of left SFA with drug-eluting balloon (Lutonix) on 01/24/17 - bleeding noted 01/30/17 resolved Plavix on hold, continue ASA per Cardiology Hg 7.7 1 unit of pRBC ordered Hg improved to 9 Hg stable so far - monitor Hg Chronic Wound Left Lower Extremity with Cellulitis H/O MRSA and chronic use of antibiotic Blood/Wound cultures-Blood culture-negative Wound culture-Pseudomonas ,sensitive to current Antibiotic Doppler US: No DVT - ID on board repeat wound culture: (+) gram neg bacilli Cipro changed to Zosyn IV day 1 on Dapto IV - Wound Care SVC on board may need wound vac on discharge - Dr. Anderson also on board, no plans of repeating graft at this time - awaiting evaluation by Dr. Sutton Anemia Likely anemia of Chronic disease complicated by recurrent infection possible Acute blood loss secondary to wound side bleeding - given 2 units Hg 7.7 1 unit of pRBC ordered Hg improved to 9 Hg stable - monitor Hg PAD Presented with rest pain Arterial Doppler:no sonographic evidence of high-grade stenosis or focal vessel cut off - was placed on heparin drip - Consult Vascular surgery S/P Successful Jetstream Atherectomy and BOARDER HAND of left SFA with drug-eluting balloon (Lutonix) on 01/24/17 Continue Aspirin and Plavix for 1 month recommended Plavix on hold secondary to wound side bleeding on Aspirin HTN Stable continue Coreg BID HLD Hold statin while on daptomycin DEPRESSION Stable Continue home meds H/O LYMPHOSARCOMA stable DVT PX Heparin held due to bleeding 01/30/17 ambulation encouraged SCDs avoided as patient has PAD CODE STATUS: FULL CODE DISPOSITION will need to verify with ID re: IV abx and with wound care re: wound vac patient prefers to go home with home health, IV abx and wound vac if necessary Current Inpatient Medications: Current Inpatient Medications Medications (Trade) Dose Ordered Sig/Connor Route Start Time Stop Time Status Last Admin Dose Admin Acetaminophen (Tylenol Tab) 650 mg Q4H PRN PO 01/23/17 23:30 02/22/17 23:29 Ondansetron HCl (Zofran Inj) 4 mg Q6H PRN IV 01/23/17 23:30 02/22/17 23:29 Daptomycin (Consult) 1 ea DAILY PRN N/A 01/24/17 00:08 02/23/17 00:07 Alprazolam (Xanax Tab) 0.5 mg TID PRN PO 01/24/17 00:15 02/23/17 00:14 02/01/17 18:03 0.5 MG Amitriptyline HCl (Elavil Tab) 75 mg HS PO 01/24/17 21:00 02/23/17 20:59 02/01/17 21:14 75 MG Aspirin (Ecotrin Tab) 81 mg QAM PO 01/24/17 09:00 02/23/17 08:59 02/02/17 09:19 81 MG Carvedilol (Coreg Tab) 6.25 mg BID PO 01/24/17 09:00 02/23/17 08:59 02/02/17 09:21 6.25 MG Citalopram Hydrobromide (celeXA TAB) 20 mg DAILY PO 01/24/17 09:00 02/23/17 08:59 02/02/17 09:21 20 MG Ferrous Sulfate (Feosol Tab) 325 mg BID PO 01/24/17 09:00 02/23/17 08:59 02/02/17 09:21 325 MG Lactobacillus Acidophilus (Floranex Tab) 2 tab BID PO 01/24/17 09:00 02/23/17 08:59 02/02/17 09:20 2 TAB Oxycodone HCl (Oxycontin Tab) 60 mg Q12 PO 01/24/17 09:00 02/07/17 08:59 02/02/17 09:19 60 MG Oxycodone HCl (Roxicodone Immediate Rel Tab) 5 mg Q4H PRN PO 01/24/17 00:15 02/07/17 00:14 02/02/17 17:15 5 MG Trazodone HCl 50 mg 50 mg HS PO 01/24/17 21:00 02/23/17 20:59 02/01/17 21:14 50 MG Daptomycin/Sodium Chloride (Cubicin IV/Nss 50ml) 55.5 ml @ 120 mls/hr DAILY@0200 IV 01/24/17 02:00 02/06/17 01:59 02/02/17 02:02 120 MLS/HR Acetic Acid (Acetic Acid 0.25% Irrig Soln) 1 appln Q8 IR 01/26/17 14:00 02/25/17 13:59 02/02/17 14:00 1 APPLN Piperacillin Sod/ Tazobactam Sod 1 ea 1 ea UD PRN N/A 02/02/17 16:30 03/04/17 16:29 Piperacillin Sod/ Tazobactam Sod/ Dextrose (Zosyn Iv/D5 100ml) 115 ml @ 28.75 mls/ hr Q8H IV 02/02/17 22:00 02/12/17 16:29
[2017-02-02 21:04] VITALS: BP 133/65; PULSE 63
[2017-02-02] MEDS: AMITRIPTYLINE HCL 25 MG TAB PO SCH (21:06)
[2017-02-02] MEDS: TRAZODONE HCL 50 MG TAB PO SCH (21:08)
[2017-02-02] MEDS: ALPRAZOLAM 0.5 MG TAB PO PRN (21:08)
[2017-02-02] MEDS: PIPERACILL/TAZOBAC IV 3.375 GM in DEXTROSE 5% 100ML IV SCH (21:39)
[2017-02-02 23:25] VITALS: BP 155/72; PULSE 65; TEMP 36.8; O2SAT 95
[2017-02-03] MEDS: OXYCODONE HCL IR 5 MG TAB (IMMEDIATE RELEASE) PO PRN ×3 (02:21→20:09)
[2017-02-03] MEDS: DAPTOmycin IV 275 MG in SODIUM CHLORIDE 0.9% 50ML 50 ML IV SCH (02:34)
[2017-02-03] MEDS: ACETIC ACID 0.25% IRRIG SOLN 1000 ML PLCT IR SCH ×3 (05:58→21:38)
[2017-02-03] MEDS: PIPERACILL/TAZOBAC IV 3.375 GM in DEXTROSE 5% 100ML IV SCH ×3 (05:58→21:37)
[2017-02-03 07:05] VITALS: BP 101/53; PULSE 59; TEMP 36.4; O2SAT 91
[2017-02-03 08:50] LABS: BASO % 0.5 %; BASO ABS # 0.02 K/uL (0-0.2); COMPLETE YES; HEMATOCRIT 28.6 % (37-47); IG% 0.7 %; LYMPH % 41.2 %; LYMPH ABS # 1.82 K/uL (1.2-3.4); MEAN CELL VOLUME 89.7 fL (80-100); MEAN CORPUSCULAR HEMOGLOBIN 28.8 pg (25-34); MEAN CORPUSCULAR HGB CONC 32.2 g/dl (32-36); MEAN PLATELET VOLUME 8.7 fL (7.4-10.4); MONO % 9.3 %; NEUT % 41.3 %; PLATELET COUNT 301 K/uL (130-400); RED BLOOD COUNT 3.19 M/uL (4.2-5.4); WHITE BLOOD COUNT 4.42 K/uL (4.8-10.8)
[2017-02-03 08:53] VITALS: BP 125/75; PULSE 57
[2017-02-03] MEDS: CARVEDILOL 6.25 MG TAB PO SCH ×2 (08:53→21:35)
[2017-02-03] MEDS: ASPIRIN 81 MG ECTAB PO SCH (08:55)
[2017-02-03] MEDS: LACTOBACILLUS ACIDOPHILUS (FLORANEX) TAB PO SCH ×2 (08:55→21:36)
[2017-02-03] MEDS: FERROUS SULFATE 325 MG TAB PO SCH ×2 (08:55→21:35)
[2017-02-03] MEDS: CITALOPRAM 20 MG TAB PO SCH (08:55)
[2017-02-03] MEDS: OXYCODONE HCL 20 MG TABCR (OXYCONTIN) PO SCH ×2 (08:56→21:34)
[2017-02-03 09:11] LABS: BUN/CREATININE RATIO 27.1 (10-20); CREATININE 0.49 mg/dl (0.60-1.20); POTASSIUM 3.9 mmol/L (3.5-5.1)
[2017-02-03 09:59] LABS: CALCIUM 8.6 mg/dl (8.5-10.1)
[2017-02-03 15:43] VITALS: BP 130/72; PULSE 66; TEMP 36.8; O2SAT 93
[2017-02-03] MEDS: ALPRAZOLAM 0.5 MG TAB PO PRN ×2 (16:51→21:33)
--- NOTE | 2017-02-03 21:02 | Progress Note ---
Medicine Progress Note Date & Time of Visit: February 03, 2017 at 21:01. Subjective delayed entry date of service as noted above patient comfortable but became emotional as she was informed she may need leg amputation patient reassured denies significant leg pain still notices bleeding with dressing of wound denies other symptoms Objective Last 8 Hrs Date Time Temp Pulse Resp B/P Pulse Ox O2 Delivery O2 Flow Rate FiO2 02/03/17 15:43 36.8 66 16 130/72 93 Room Air 02/03/17 13:45 Room Air Physical Exam: General- oriented x 3, not in distress, speaks in sentences with no effort Eyes- anicteric Neck- no JVD Lungs- clear breath sounds bilaterally Heart- normal rate, regular rhythm; no murmur Abdomen- normal bowel sounds, non distended, soft, nontender Extremities- left lower leg with mild pedal edema, no bleeding/discharge, dressing clean right leg essentially normal Neuro- alert, oriented x 3; no gross focal deficits except for decreased motor strength and sensation on the left leg s Skin- warm & dry Laboratory Results: Last 24 Hours Test 02/03/17 08:20 White Blood Count 4.42 K/uL Red Blood Count 3.19 M/uL Hemoglobin 9.2 g/dL Hematocrit 28.6 % Mean Corpuscular Volume 89.7 fL Mean Corpuscular Hemoglobin 28.8 pg Mean Corpuscular Hemoglobin Concent 32.2 g/dl Platelet Count 301 K/uL Mean Platelet Volume 8.7 fL Neutrophils (%) (Auto) 41.3 % Lymphocytes (%) (Auto) 41.2 % Monocytes (%) (Auto) 9.3 % Eosinophils (%) (Auto) 7.0 % Basophils (%) (Auto) 0.5 % Neutrophils # (Auto) 1.83 K/uL Lymphocytes # (Auto) 1.82 K/uL Monocytes # (Auto) 0.41 K/uL Eosinophils # (Auto) 0.31 K/uL Basophils # (Auto) 0.02 K/uL RDW Standard Deviation 47.8 fL RDW Coefficient of Variation 14.5 % Immature Granulocyte % (Auto) 0.7 % Immature Granulocyte # (Auto) 0.03 K/uL Sodium Level 141 mmol/L Potassium Level 3.9 mmol/L Chloride Level 105 mmol/L Carbon Dioxide Level 29 mmol/L Anion Gap 7.0 mmol/L Blood Urea Nitrogen 13 mg/dl Creatinine 0.49 mg/dl Est Creatinine Clear Calc Drug Dose 106.6 ml/min Estimated GFR () 117.7 Estimated GFR (Non- 101.5 BUN/Creatinine Ratio 27.1 Random Glucose 80 mg/dl Calcium Level 8.6 mg/dl Assessment & Plan NON HEALING WOUND LEFT LOWER LEG PAD WITH SEVERE SFA DISEASE S/P ATHERECTOMY AND ROLL OPERATOR 01/24/17 - S/P Successful Jetstream Atherectomy and ROLL OPERATOR of left SFA with drug-eluting balloon (Lutonix) on 01/24/17 - profuse bleeding noted 01/30/17 resolved Plavix on hold, continue ASA per Cardiology Hg dropped to 7.7, 1 unit of pRBC ordered Hg improved to 9, and remains stable Chronic Wound Left Lower Extremity with Cellulitis H/O MRSA and chronic use of antibiotic Blood/Wound cultures-Blood culture-negative Wound culture-Pseudomonas ,sensitive to current Antibiotic Doppler US: No DVT - ID on board repeat wound culture: (+) gram neg bacilli Cipro changed to Zosyn IV on Dapto IV - Wound Care SVC on board may need wound vac on discharge - Dr. Anderson also on board, no plans of repeating graft at this time - awaiting evaluation by Dr. Sutton Anemia Likely anemia of Chronic disease complicated by recurrent infection possible Acute blood loss secondary to wound side bleeding -management per #1 PAD Presented with rest pain Arterial Doppler:no sonographic evidence of high-grade stenosis or focal vessel cut off - was placed on heparin drip - Consult Vascular surgery S/P Successful Jetstream Atherectomy and ROLL OPERATOR of left SFA with drug-eluting balloon (Lutonix) on 01/24/17 Continue Aspirin and Plavix for 1 month recommended Plavix on hold secondary to wound side bleeding on Aspirin HTN Stable continue Coreg BID HLD Hold statin while on daptomycin DEPRESSION Stable Continue home meds H/O LYMPHOSARCOMA stable DVT PX Heparin held due to profuse bleeding 01/30/17 requiring pRBC transfusion ambulation encouraged, which she is doing SCDs avoided as patient has PAD CODE STATUS: FULL CODE DISPOSITION will need to verify with ID re: IV abx and with wound care re: wound vac patient prefers to go home with home health, IV abx and wound vac if necessary Current Inpatient Medications: Current Inpatient Medications Medications (Trade) Dose Ordered Sig/Connor Route Start Time Stop Time Status Last Admin Dose Admin Acetaminophen (Tylenol Tab) 650 mg Q4H PRN PO 01/23/17 23:30 02/22/17 23:29 Ondansetron HCl (Zofran Inj) 4 mg Q6H PRN IV 01/23/17 23:30 02/22/17 23:29 Daptomycin (Consult) 1 ea DAILY PRN N/A 01/24/17 00:08 02/23/17 00:07 Alprazolam (Xanax Tab) 0.5 mg TID PRN PO 01/24/17 00:15 02/23/17 00:14 02/03/17 16:51 0.5 MG Amitriptyline HCl (Elavil Tab) 75 mg HS PO 01/24/17 21:00 02/23/17 20:59 02/02/17 21:06 75 MG Aspirin (Ecotrin Tab) 81 mg QAM PO 01/24/17 09:00 02/23/17 08:59 02/03/17 08:55 81 MG Carvedilol (Coreg Tab) 6.25 mg BID PO 01/24/17 09:00 02/23/17 08:59 02/02/17 21:07 6.25 MG Citalopram Hydrobromide (celeXA TAB) 20 mg DAILY PO 01/24/17 09:00 02/23/17 08:59 02/03/17 08:55 20 MG Ferrous Sulfate (Feosol Tab) 325 mg BID PO 01/24/17 09:00 02/23/17 08:59 02/03/17 08:55 325 MG Lactobacillus Acidophilus (Floranex Tab) 2 tab BID PO 01/24/17 09:00 02/23/17 08:59 02/03/17 08:55 2 TAB Oxycodone HCl (Oxycontin Tab) 60 mg Q12 PO 01/24/17 09:00 02/07/17 08:59 02/03/17 08:56 60 MG Oxycodone HCl (Roxicodone Immediate Rel Tab) 5 mg Q4H PRN PO 01/24/17 00:15 02/07/17 00:14 02/03/17 20:09 5 MG Trazodone HCl 50 mg 50 mg HS PO 01/24/17 21:00 02/23/17 20:59 02/02/17 21:08 50 MG Daptomycin/Sodium Chloride (Cubicin IV/Nss 50ml) 55.5 ml @ 120 mls/hr DAILY@0200 IV 01/24/17 02:00 02/06/17 01:59 02/03/17 02:34 120 MLS/HR Acetic Acid (Acetic Acid 0.25% Irrig Soln) 1 appln Q8 IR 01/26/17 14:00 02/25/17 13:59 02/03/17 14:59 1 APPLN Piperacillin Sod/ Tazobactam Sod 1 ea 1 ea UD PRN N/A 02/02/17 16:30 03/04/17 16:29 Piperacillin Sod/ Tazobactam Sod/ Dextrose (Zosyn Iv/D5 100ml) 115 ml @ 28.75 mls/ hr Q8H IV 02/02/17 22:00 02/12/17 16:29 02/03/17 14:57 28.75 MLS/HR
[2017-02-03] MEDS: TRAZODONE HCL 50 MG TAB PO SCH (21:34)
[2017-02-03] MEDS: AMITRIPTYLINE HCL 25 MG TAB PO SCH (21:35)
[2017-02-03 23:33] VITALS: BP 152/72; PULSE 71; TEMP 36.9; O2SAT 92
[2017-02-04] MEDS: DAPTOmycin IV 275 MG in SODIUM CHLORIDE 0.9% 50ML 50 ML IV SCH (02:16)
[2017-02-04] MEDS: ACETIC ACID 0.25% IRRIG SOLN 1000 ML PLCT IR SCH ×3 (06:20→22:26)
[2017-02-04] MEDS: OXYCODONE HCL IR 5 MG TAB (IMMEDIATE RELEASE) PO PRN ×2 (06:20→14:10)
[2017-02-04] MEDS: PIPERACILL/TAZOBAC IV 3.375 GM in DEXTROSE 5% 100ML IV SCH ×3 (06:51→22:17)
[2017-02-04 07:25] VITALS: BP 130/70; PULSE 68; TEMP 37; O2SAT 92
[2017-02-04 08:30] VITALS: O2SAT 92
[2017-02-04 09:55] VITALS: BP 97/61; PULSE 70
[2017-02-04] MEDS: CARVEDILOL 6.25 MG TAB PO SCH ×2 (09:56→22:23)
[2017-02-04] MEDS: OXYCODONE HCL 20 MG TABCR (OXYCONTIN) PO SCH ×2 (09:57→20:19)
[2017-02-04] MEDS: LACTOBACILLUS ACIDOPHILUS (FLORANEX) TAB PO SCH ×2 (09:57→22:24)
[2017-02-04] MEDS: FERROUS SULFATE 325 MG TAB PO SCH ×2 (09:58→22:23)
[2017-02-04] MEDS: CITALOPRAM 20 MG TAB PO SCH (09:58)
[2017-02-04] MEDS: ASPIRIN 81 MG ECTAB PO SCH (09:58)
[2017-02-04 15:51] VITALS: BP 109/68; PULSE 71; TEMP 37.1; O2SAT 93
[2017-02-04 22:22] VITALS: BP 149/73; PULSE 71; TEMP 37.1
[2017-02-04] MEDS: ALPRAZOLAM 0.5 MG TAB PO PRN (22:22)
[2017-02-04] MEDS: AMITRIPTYLINE HCL 25 MG TAB PO SCH (22:23)
[2017-02-04] MEDS: TRAZODONE HCL 50 MG TAB PO SCH (22:24)
[2017-02-04 23:16] VITALS: BP 134/75; PULSE 72; TEMP 37.2; O2SAT 94
[2017-02-05] MEDS: DAPTOmycin IV 275 MG in SODIUM CHLORIDE 0.9% 50ML 50 ML IV SCH (02:23)
[2017-02-05] MEDS: PIPERACILL/TAZOBAC IV 3.375 GM in DEXTROSE 5% 100ML IV SCH ×3 (03:08→18:39)
[2017-02-05] MEDS: ACETIC ACID 0.25% IRRIG SOLN 1000 ML PLCT IR SCH ×3 (06:17→21:25)
[2017-02-05 07:29] VITALS: BP 103/65; PULSE 64; TEMP 36.9; O2SAT 92
[2017-02-05 08:30] VITALS: O2SAT 92
[2017-02-05 09:34] VITALS: BP 128/72; PULSE 70
[2017-02-05] MEDS: ASPIRIN 81 MG ECTAB PO SCH (09:36)
[2017-02-05] MEDS: FERROUS SULFATE 325 MG TAB PO SCH ×2 (09:36→21:24)
[2017-02-05] MEDS: LACTOBACILLUS ACIDOPHILUS (FLORANEX) TAB PO SCH ×2 (09:36→21:24)
[2017-02-05] MEDS: CARVEDILOL 6.25 MG TAB PO SCH ×2 (09:36→21:24)
[2017-02-05] MEDS: CITALOPRAM 20 MG TAB PO SCH (09:37)
[2017-02-05] MEDS: OXYCODONE HCL 20 MG TABCR (OXYCONTIN) PO SCH ×2 (09:37→21:25)
--- NOTE | 2017-02-05 10:05 | Progress Note ---
Medicine Progress Note Date & Time of Visit: February 05, 2017 at 10:01. Subjective delayed entry date of service 02/04/17 patient seen resting comfortably mood is better no leg pain states bleeding when wound is dressed seems to be decreasing denies chest pain, dyspnea, nausea no problems ambulating no other symptoms Objective Last 8 Hrs Date Time Temp Pulse Resp B/P Pulse Ox O2 Delivery O2 Flow Rate FiO2 02/05/17 09:34 70 128/72 02/05/17 07:29 36.9 64 16 103/65 92 Room Air Physical Exam: General- oriented x 3, not in distress, speaks in sentences with no effort Neck- no JVD Lungs- clear breath sounds bilaterally, no rales Heart- normal rate, regular rhythm; no murmur Abdomen- normal bowel sounds, non distended, soft, nontender Extremities- left lower leg with mild pedal edema, dressing clean right leg essentially normal Neuro- alert, oriented x 3; no gross focal deficits except for decreased motor strength and sensation on the left leg Skin- warm & dry Assessment & Plan 67 year old female with history of Severe PAD, Lymphosarcoma, HTN, Dyslipidemia presenting with non healing left lower leg wound. NON HEALING WOUND LEFT LOWER LEG PAD WITH SEVERE SFA DISEASE S/P ATHERECTOMY AND CARDIOLOGY MANAGER 01/24/17 - S/P Successful Jetstream Atherectomy and CARDIOLOGY MANAGER of left SFA with drug-eluting balloon (Lutonix) on 01/24/17 - profuse bleeding noted 01/30/17 Plavix on hold, continue ASA per Cardiology Hg dropped to 7.7, 1 unit of pRBC ordered Hg improved to 9, and remains stable Chronic Wound Left Lower Extremity with Cellulitis H/O MRSA and chronic use of antibiotic Blood/Wound cultures-Blood culture-negative Wound culture-Pseudomonas ,sensitive to current Antibiotic Doppler US: No DVT - ID on board repeat wound culture: (+) Pseudomonas Cipro changed to Zosyn IV on Dapto IV - for re-evaluation by Dr. Sutton tomorrow re: definite treatment - Wound Care SVC on board may need wound vac on discharge - Dr. Anderson also on board, no plans of repeating graft at this time Anemia Likely anemia of Chronic disease complicated by recurrent infection possible Acute blood loss secondary to wound side bleeding -management per #1 PAD Presented with rest pain Arterial Doppler:no sonographic evidence of high-grade stenosis or focal vessel cut off - was placed on heparin drip - Consult Vascular surgery S/P Successful Jetstream Atherectomy and CARDIOLOGY MANAGER of left SFA with drug-eluting balloon (Lutonix) on 01/24/17 - Continue Aspirin and Plavix for 1 month recommended Plavix on hold secondary to wound side bleeding on Aspirin HTN Stable continue Coreg BID HLD Hold statin while on daptomycin DEPRESSION Stable Continue home meds H/O LYMPHOSARCOMA stable DVT PX Heparin held due to profuse bleeding 01/30/17 requiring pRBC transfusion ambulation encouraged, which she is doing SCDs avoided as patient has PAD CODE STATUS: FULL CODE DISPOSITION will need to verify with ID re: IV abx and with wound care re: wound vac patient prefers to go home with home health, IV abx and wound vac if necessary Current Inpatient Medications: Current Inpatient Medications Medications (Trade) Dose Ordered Sig/Connor Route Start Time Stop Time Status Last Admin Dose Admin Acetaminophen (Tylenol Tab) 650 mg Q4H PRN PO 01/23/17 23:30 02/22/17 23:29 Ondansetron HCl (Zofran Inj) 4 mg Q6H PRN IV 01/23/17 23:30 02/22/17 23:29 Daptomycin (Consult) 1 ea DAILY PRN N/A 01/24/17 00:08 02/23/17 00:07 Alprazolam (Xanax Tab) 0.5 mg TID PRN PO 01/24/17 00:15 02/23/17 00:14 02/04/17 22:22 0.5 MG Amitriptyline HCl (Elavil Tab) 75 mg HS PO 01/24/17 21:00 02/23/17 20:59 02/04/17 22:23 75 MG Aspirin (Ecotrin Tab) 81 mg QAM PO 01/24/17 09:00 02/23/17 08:59 02/05/17 09:36 81 MG Carvedilol (Coreg Tab) 6.25 mg BID PO 01/24/17 09:00 02/23/17 08:59 02/05/17 09:36 6.25 MG Citalopram Hydrobromide (celeXA TAB) 20 mg DAILY PO 01/24/17 09:00 02/23/17 08:59 02/05/17 09:37 20 MG Ferrous Sulfate (Feosol Tab) 325 mg BID PO 01/24/17 09:00 02/23/17 08:59 02/05/17 09:36 325 MG Lactobacillus Acidophilus (Floranex Tab) 2 tab BID PO 01/24/17 09:00 02/23/17 08:59 02/05/17 09:36 2 TAB Oxycodone HCl (Oxycontin Tab) 60 mg Q12 PO 01/24/17 09:00 02/07/17 08:59 02/05/17 09:37 60 MG Oxycodone HCl (Roxicodone Immediate Rel Tab) 5 mg Q4H PRN PO 01/24/17 00:15 02/07/17 00:14 02/04/17 14:10 5 MG Trazodone HCl 50 mg 50 mg HS PO 01/24/17 21:00 02/23/17 20:59 02/04/17 22:24 50 MG Daptomycin/Sodium Chloride (Cubicin IV/Nss 50ml) 55.5 ml @ 120 mls/hr DAILY@0200 IV 01/24/17 02:00 02/06/17 01:59 02/05/17 02:23 120 MLS/HR Acetic Acid (Acetic Acid 0.25% Irrig Soln) 1 appln Q8 IR 01/26/17 14:00 02/25/17 13:59 02/05/17 06:17 1 APPLN Piperacillin Sod/ Tazobactam Sod 1 ea 1 ea UD PRN N/A 02/02/17 16:30 03/04/17 16:29 Piperacillin Sod/ Tazobactam Sod/ Dextrose (Zosyn Iv/D5 100ml) 115 ml @ 28.75 mls/ hr Q8H IV 02/02/17 22:00 02/12/17 16:29 02/05/17 03:08 28.75 MLS/HR
--- NOTE | 2017-02-05 10:23 | Progress Note ---
Medicine Progress Note Date & Time of Visit: February 05, 2017 at 10:16. Subjective patient states she feels ok today leg pain controlled adequately no dyspnea, chest pain, dizziness no other symptoms Objective Last 8 Hrs Date Time Temp Pulse Resp B/P Pulse Ox O2 Delivery O2 Flow Rate FiO2 02/05/17 09:34 70 128/72 02/05/17 07:29 36.9 64 16 103/65 92 Room Air Physical Exam: General- oriented x 3, not in distress, speaks in sentences with no effort Lungs- clear breath sounds bilaterally, no rales/wheezes bilaterally Heart- normal rate, regular rhythm; no murmur Abdomen- normal bowel sounds, non distended, soft, nontender Extremities- left lower leg with mild pedal edema, dressing clean right leg essentially normal Neuro- alert, oriented x 3; no gross focal deficits except for decreased motor strength and sensation on the left leg Skin- warm & dry Assessment & Plan 67 year old female with history of Severe PAD, Lymphosarcoma, HTN, Dyslipidemia presenting with non healing left lower leg wound. NON HEALING WOUND LEFT LOWER LEG PAD WITH SEVERE SFA DISEASE S/P ATHERECTOMY AND PARKING ATTENDANT 01/24/17 - S/P Successful Jetstream Atherectomy and PARKING ATTENDANT of left SFA with drug-eluting balloon (Lutonix) on 01/24/17 - profuse bleeding noted 01/30/17 Plavix on hold, continue ASA per Cardiology Hg dropped to 7.7, 1 unit of pRBC ordered Hg improved to 9, and remains stable - on Dapto and ZOsyn Wound care Chronic Wound Left Lower Extremity with Cellulitis H/O MRSA and chronic use of antibiotic Blood/Wound cultures-Blood culture-negative Wound culture-Pseudomonas ,sensitive to current Antibiotic Doppler US: No DVT - ID on board repeat wound culture: (+) Pseudomonas Cipro changed to Zosyn IV also on Dapto IV - for re-evaluation by Dr. Sutton tomorrow re: definite treatment - Wound Care SVC on board may need wound vac on discharge - Dr. Anderson also on board, no plans of repeating graft at this time Anemia Likely anemia of Chronic disease complicated by recurrent infection possible Acute blood loss secondary to wound side bleeding -management per #1 PAD Presented with rest pain Arterial Doppler:no sonographic evidence of high-grade stenosis or focal vessel cut off - was placed on heparin drip - Consult Vascular surgery S/P Successful Jetstream Atherectomy and PARKING ATTENDANT of left SFA with drug-eluting balloon (Lutonix) on 01/24/17 - Continue Aspirin and Plavix for 1 month recommended Plavix on hold secondary to wound side bleeding on Aspirin HTN Stable continue Coreg BID HLD Hold statin while on daptomycin DEPRESSION Stable Continue home meds H/O LYMPHOSARCOMA stable DVT PX Heparin held due to profuse bleeding 01/30/17 requiring pRBC transfusion ambulation encouraged, which she is doing SCDs avoided as patient has PAD CODE STATUS: FULL CODE DISPOSITION will need to verify with ID re: IV abx and with wound care re: wound vac patient prefers to go home with home health, IV abx and wound vac if necessary Current Inpatient Medications: Current Inpatient Medications Medications (Trade) Dose Ordered Sig/Connor Route Start Time Stop Time Status Last Admin Dose Admin Acetaminophen (Tylenol Tab) 650 mg Q4H PRN PO 01/23/17 23:30 02/22/17 23:29 Ondansetron HCl (Zofran Inj) 4 mg Q6H PRN IV 01/23/17 23:30 02/22/17 23:29 Daptomycin (Consult) 1 ea DAILY PRN N/A 01/24/17 00:08 02/23/17 00:07 Alprazolam (Xanax Tab) 0.5 mg TID PRN PO 01/24/17 00:15 02/23/17 00:14 02/04/17 22:22 0.5 MG Amitriptyline HCl (Elavil Tab) 75 mg HS PO 01/24/17 21:00 02/23/17 20:59 02/04/17 22:23 75 MG Aspirin (Ecotrin Tab) 81 mg QAM PO 01/24/17 09:00 02/23/17 08:59 02/05/17 09:36 81 MG Carvedilol (Coreg Tab) 6.25 mg BID PO 01/24/17 09:00 02/23/17 08:59 02/05/17 09:36 6.25 MG Citalopram Hydrobromide (celeXA TAB) 20 mg DAILY PO 01/24/17 09:00 02/23/17 08:59 02/05/17 09:37 20 MG Ferrous Sulfate (Feosol Tab) 325 mg BID PO 01/24/17 09:00 02/23/17 08:59 02/05/17 09:36 325 MG Lactobacillus Acidophilus (Floranex Tab) 2 tab BID PO 01/24/17 09:00 02/23/17 08:59 02/05/17 09:36 2 TAB Oxycodone HCl (Oxycontin Tab) 60 mg Q12 PO 01/24/17 09:00 02/07/17 08:59 02/05/17 09:37 60 MG Oxycodone HCl (Roxicodone Immediate Rel Tab) 5 mg Q4H PRN PO 01/24/17 00:15 02/07/17 00:14 02/04/17 14:10 5 MG Trazodone HCl 50 mg 50 mg HS PO 01/24/17 21:00 02/23/17 20:59 02/04/17 22:24 50 MG Daptomycin/Sodium Chloride (Cubicin IV/Nss 50ml) 55.5 ml @ 120 mls/hr DAILY@0200 IV 01/24/17 02:00 02/06/17 01:59 02/05/17 02:23 120 MLS/HR Acetic Acid (Acetic Acid 0.25% Irrig Soln) 1 appln Q8 IR 01/26/17 14:00 02/25/17 13:59 02/05/17 06:17 1 APPLN Piperacillin Sod/ Tazobactam Sod 1 ea 1 ea UD PRN N/A 02/02/17 16:30 03/04/17 16:29 Piperacillin Sod/ Tazobactam Sod/ Dextrose (Zosyn Iv/D5 100ml) 115 ml @ 28.75 mls/ hr Q8H IV 02/02/17 22:00 02/12/17 16:29 02/05/17 03:08 28.75 MLS/HR
[2017-02-05] MEDS: OXYCODONE HCL IR 5 MG TAB (IMMEDIATE RELEASE) PO PRN ×2 (12:39→19:38)
[2017-02-05 16:00] VITALS: BP 101/56; PULSE 69; TEMP 36.4; O2SAT 92
[2017-02-05 21:16] VITALS: BP 138/64; PULSE 69
[2017-02-05] MEDS: TRAZODONE HCL 50 MG TAB PO SCH (21:24)
[2017-02-05] MEDS: AMITRIPTYLINE HCL 25 MG TAB PO SCH (21:24)
[2017-02-05] MEDS: ALPRAZOLAM 0.5 MG TAB PO PRN (21:25)
[2017-02-05 23:00] VITALS: BP 108/56; PULSE 75; TEMP 37.1; O2SAT 92
[2017-02-06] MEDS: DAPTOmycin IV 275 MG in SODIUM CHLORIDE 0.9% 50ML 50 ML IV SCH (02:09)
[2017-02-06] MEDS: PIPERACILL/TAZOBAC IV 3.375 GM in DEXTROSE 5% 100ML IV SCH ×3 (03:01→19:10)
[2017-02-06] MEDS: ACETIC ACID 0.25% IRRIG SOLN 1000 ML PLCT IR SCH ×3 (06:18→22:21)
[2017-02-06] MEDS: ASPIRIN 81 MG ECTAB PO SCH (07:34)
[2017-02-06] MEDS: LACTOBACILLUS ACIDOPHILUS (FLORANEX) TAB PO SCH ×2 (07:34→22:20)
[2017-02-06] MEDS: FERROUS SULFATE 325 MG TAB PO SCH ×2 (07:34→22:21)
[2017-02-06] MEDS: OXYCODONE HCL 20 MG TABCR (OXYCONTIN) PO SCH ×2 (07:35→22:19)
[2017-02-06] MEDS: CITALOPRAM 20 MG TAB PO SCH (07:35)
[2017-02-06 07:36] VITALS: BP 92/49; PULSE 67
[2017-02-06] MEDS: CARVEDILOL 6.25 MG TAB PO SCH ×2 (07:36→22:20)
[2017-02-06 07:39] VITALS: BP 105/66; PULSE 67; TEMP 36.9; O2SAT 96
--- NOTE | 2017-02-06 15:07 | PROGRESS NOTE ---
DATE: 02/03/2017 INPATIENT PROGRESS NOTE SUBJECTIVE: The patient is seen today for reevaluation of a traumatic wound sustained to her left lower extremity with significant postoperative ulcerations as well as a stage II pressure ulcer to the left heel. The patient was recently admitted for ongoing care and antibiotic therapy. The patient at the current time denies any significant pain. The patient denies any fever, chills or night sweats. The patient denies any other systemic complaints. OBJECTIVE: The patient's vital signs were reviewed and found to be unremarkable. The patient is afebrile. The wounds present on the left lower extremity today are approximately the same size and dimension as prior visit 3 weeks ago. There is, however, significant increased necrosis and breakdown of the posterior element of the wound site. There is no active drainage present. There is scattered slough throughout the base of the bulk of the wound sites. The heel shows a significant deterioration of the ulcerative site with now complete exposure of the posterior calcaneus to be noted. ASSESSMENT: 1. Traumatic wound, left lower extremity with secondary postoperative ulcerations with significant deterioration. 2. Stage IV pressure ulcer of the left heel. PLAN: At this time, a lengthy discussion ensued with the patient regarding the need for probable BK amputation. Following aggressive and intermittent conservative therapy throughout the course of the past 18 months with periodic closure and then reopening with increased pressure to the wound sites have resulted in continued deterioration. The patient would like to have the weekend to talk this over with her family and I recommended that I will meet with her again on Monday to discuss further conclusion to her care. These sites will be dressed with Aquacel AG and gauze, changed on a daily basis or as needed.
[2017-02-06 15:15] VITALS: BP 107/55; PULSE 88; TEMP 37; O2SAT 93
--- NOTE | 2017-02-06 16:36 | Infectious Disease Progress Nt ---
Progress Note Date of Service February 06, 2017. Subjective Pt evaluation today including: conversation w/ patient, physical exam, chart review, lab review, review of studies, conversation w/ organizational consultant (Pharmacy), review of inpatient medication list Patient is feeling well this afternoon. She is anticipating left BKA in the near future. Dr. Sutton feels this is the best treatment course, and the patient agrees now as well. She is considering going to [facility] for her BKA, but she wants to discuss this with her family. Repeat wound culture growing Pseudomonas that is resistant to PO Cipro and Levaquin. Patient continues on IV Daptomycin and Zosyn. Anticipating possible D/C to home prior to BKA. All Other Systems: Reviewed and Negative Medications Current Inpatient Medications Medications (Trade) Dose Ordered Sig/Connor Route Start Time Stop Time Status Last Admin Dose Admin Acetaminophen (Tylenol Tab) 650 mg Q4H PRN PO 01/23/17 23:30 02/22/17 23:29 Ondansetron HCl (Zofran Inj) 4 mg Q6H PRN IV 01/23/17 23:30 02/22/17 23:29 Daptomycin (Consult) 1 ea DAILY PRN N/A 01/24/17 00:08 02/23/17 00:07 Alprazolam (Xanax Tab) 0.5 mg TID PRN PO 01/24/17 00:15 02/23/17 00:14 02/05/17 21:25 0.5 MG Amitriptyline HCl (Elavil Tab) 75 mg HS PO 01/24/17 21:00 02/23/17 20:59 02/05/17 21:24 75 MG Aspirin (Ecotrin Tab) 81 mg QAM PO 01/24/17 09:00 02/23/17 08:59 02/06/17 07:34 81 MG Carvedilol (Coreg Tab) 6.25 mg BID PO 01/24/17 09:00 02/23/17 08:59 02/05/17 21:24 6.25 MG Citalopram Hydrobromide (celeXA TAB) 20 mg DAILY PO 01/24/17 09:00 02/23/17 08:59 02/06/17 07:35 20 MG Ferrous Sulfate (Feosol Tab) 325 mg BID PO 01/24/17 09:00 02/23/17 08:59 02/06/17 07:34 325 MG Lactobacillus Acidophilus (Floranex Tab) 2 tab BID PO 01/24/17 09:00 02/23/17 08:59 02/06/17 07:34 2 TAB Oxycodone HCl (Oxycontin Tab) 60 mg Q12 PO 01/24/17 09:00 02/20/17 08:59 02/06/17 07:35 60 MG Oxycodone HCl (Roxicodone Immediate Rel Tab) 5 mg Q4H PRN PO 01/24/17 00:15 02/20/17 00:14 02/05/17 19:38 5 MG Trazodone HCl 50 mg 50 mg HS PO 01/24/17 21:00 02/23/17 20:59 02/05/17 21:24 50 MG Daptomycin/Sodium Chloride (Cubicin IV/Nss 50ml) 55.5 ml @ 120 mls/hr DAILY@0200 IV 01/24/17 02:00 02/06/17 23:59 02/06/17 02:09 120 MLS/HR Acetic Acid (Acetic Acid 0.25% Irrig Soln) 1 appln Q8 IR 01/26/17 14:00 02/25/17 13:59 02/06/17 13:46 1 APPLN Piperacillin Sod/ Tazobactam Sod 1 ea 1 ea UD PRN N/A 02/02/17 16:30 03/04/17 16:29 Piperacillin Sod/ Tazobactam Sod/ Dextrose (Zosyn Iv/D5 100ml) 115 ml @ 28.75 mls/ hr Q8H IV 02/02/17 22:00 02/12/17 16:29 02/06/17 11:44 28.75 MLS/HR Objective Vital Signs Date Time Temp Pulse Resp B/P Pulse Ox O2 Delivery O2 Flow Rate FiO2 02/06/17 15:15 37.0 88 18 107/55 93 Room Air 02/06/17 07:39 Room Air 02/06/17 07:39 36.9 67 16 105/66 96 Room Air 02/06/17 07:36 67 92/49 02/05/17 23:00 37.1 75 16 108/56 92 Room Air 02/05/17 21:16 69 138/64 02/05/17 19:40 Room Air Physical Exam General Appearance: WD/WN, no apparent distress Eyes: normal inspection, sclerae normal ENT: hearing grossly normal Neck: supple, trachea midline Respiratory/Chest: no respiratory distress, no accessory muscle use Cardiovascular: regular rate, rhythm Abdomen: normal bowel sounds Extremities: + pertinent finding (left leg with dressing in place- posterior portion saturated) Neurologic/Psychiatric: alert, normal mood/affect Skin: warm/dry, no rash Laboratory Results RUN DATE: 02/03/17 [facility] LAB PAGE 1 RUN TIME: 1503 Specimen Inquiry PATIENT: ROXANNE LOYD LOC: [facility] U # : [id number] AGE/SX: 67/F ROOM: N384 REG : 01/23/[address]: Garret Beltran MD : [id number] BED: 2 DIS : STATUS: ADM IN TLOC: SPEC #: [id number] JANE: 02/01/170 STATUS: COMP REQ #: [id number] RECD: 02/01/17-[address]: Norma Anderson MD SOURCE: DRAIN-DEEP ENTR: 02/01/17-[address]: Shubham Timmons MD [facility]: Zay Rojas, Garret Patel , Braden Melendez MD ORDERED: JOANNE MOSES CUL/SMR COMMENTS: Has Specimen Been Obtained/Collected? Y Procedure Result Verified Site GRAM STAIN Final 02/01/17-1448 RESULT MANY POLYS NO ORGANISMS SEEN DEEP WOUND CULTURE Final 02/03/17-1503 Organism 1 PSEUDOMONAS AERUGINOSA QUANITY RARE SENS SENSITIVITY TO FOLLOW 1. PSEUDOMONAS AERUGINOSA Target Route Dose RX AB Cost M.I.C. IQ ------ ----- ------ -- ------ -------- - ------ CEFTAZIDIME S 4 CEFEPIME S <=4 IMIPENEM I 4 AZTREONAM S <=4 GENTAMICIN S <=4 TOBRAMYCIN S <=4 AMIKACIN S <=16 CIPROFLOXACIN R >2 LEVOFLOXACIN R >4 PIP/TAZO S <=16 S = SENSITIVE I = INTERMEDIATE R = RESISTANT Assessment and Plan Patient with severe chronic left lower extremity ulceration in the setting of PAD and history of polymicrobial infection of the wound since admission growing Pseudomonas- now resistant to quinolones. She is currently on IV Daptomycin and Zosyn. Feel that this patient can transition back to PO Bactrim DS BID, but she will also need continued coverage for Pseudomonas. Pending plans for home, could continue IV Zosyn via continuous infusion at home if covered of IV Cefepime BID. Otherwise, if IV abx are not covered at home, would recommend IV Tobramycin once daily along with PO Bactrim until BKA is performed. Will discuss with involved and follow. PROVIDER ADDENDUM: patient reviewed with Ms. Arndt. Agree with above assessment.
[2017-02-06] MEDS: OXYCODONE HCL IR 5 MG TAB (IMMEDIATE RELEASE) PO PRN (16:52)
--- NOTE | 2017-02-06 17:23 | Medical Consult ---
Consultation Date of Consultation: February 06, 2017. Attending Physician: Garret Beltran MD Reason for Consultation: Left lower extremity traumatic wound/ulceration History of Present Illness 67 year old female with a prior history of femur fracture secondary to liposarcoma of the left lower extremity, ultimately caused a left foot drop. Subsequent Achilles lengthening performed 1 year ago resulting in delayed wound healing and significant ulceration. [facility] and Dr. Renner consulted accordingly. Patient reports no feeling from below the knee and an inability to perform any type of motor function of the toes, foot, or ankle. Reports a history of MRSA. Past Medical/Surgical History Medical Problems: (1) Acute kidney injury Status: Acute (2) Anemia Status: Acute (3) Failure of outpatient treatment Status: Acute (4) Gangrene of lower extremity Status: Acute (5) Left leg cellulitis Status: Acute (6) Leg pain, left Status: Acute (7) Occlusion of artery of leg Status: Acute (8) Sepsis Status: Acute (9) History of MRSA Family History DVT FATHER FH: CAD (coronary artery disease) MOTHER ([place] age 70) FH: pulmonary embolism SISTER Social History Smoking Status: Former Smoker Alcohol Use: none Drug Use: none Marital Status: Housing Status: lives with family Occupation Status: retired Allergies Coded Allergies: Vancomycin (Verified Adverse Reaction, Severe, WORSENING RENAL FUNCTION, ) Patient prescribed both vancomycin and pip/tazo therapy. Patient's vancomycin trough level for the 800mg IV q12h dosing came back subtherapeutic at 9.7mcg/ml. Vancomycin dose was changed to 1400mg IV q12h to provide an increase in trough and get a therapeutic level. However, trough level returned back on this newer dose as 19.9mcg/ml. Deemed dose to having caused a higher goal trough and determined that a lower dose of 1000mg IV q12h was needed to lower trough into goal range. However, patient's renal function had worsened on 08/02 from 0.46mg/dl for SCr on 08/01 to a SCr of 1.8mcg/ml. This could have been due to the vancomycin dosing or the combination of the patient being on vancomycin and pip/zosyn. At this point ID recommended to switch patient to daptomycin and continue on the piperacillin/tazobactam. Dr. Monona was made aware of the situation. Renal function was to continue to be monitored as well as the vancomycin levels. Cetirizine (Verified Adverse Reaction, Unknown, BOWEL CRAMPS, 12/20/16) Current Inpatient Medications Current Inpatient Medications Medications (Trade) Dose Ordered Sig/Connor Route Start Time Stop Time Status Last Admin Dose Admin Acetaminophen (Tylenol Tab) 650 mg Q4H PRN PO 01/23/17 23:30 02/22/17 23:29 Ondansetron HCl (Zofran Inj) 4 mg Q6H PRN IV 01/23/17 23:30 02/22/17 23:29 Daptomycin (Consult) 1 ea DAILY PRN N/A 01/24/17 00:08 02/23/17 00:07 Alprazolam (Xanax Tab) 0.5 mg TID PRN PO 01/24/17 00:15 02/23/17 00:14 02/05/17 21:25 0.5 MG Amitriptyline HCl (Elavil Tab) 75 mg HS PO 01/24/17 21:00 02/23/17 20:59 02/05/17 21:24 75 MG Aspirin (Ecotrin Tab) 81 mg QAM PO 01/24/17 09:00 02/23/17 08:59 02/06/17 07:34 81 MG Carvedilol (Coreg Tab) 6.25 mg BID PO 01/24/17 09:00 02/23/17 08:59 02/05/17 21:24 6.25 MG Citalopram Hydrobromide (celeXA TAB) 20 mg DAILY PO 01/24/17 09:00 02/23/17 08:59 02/06/17 07:35 20 MG Ferrous Sulfate (Feosol Tab) 325 mg BID PO 01/24/17 09:00 02/23/17 08:59 02/06/17 07:34 325 MG Lactobacillus Acidophilus (Floranex Tab) 2 tab BID PO 01/24/17 09:00 02/23/17 08:59 02/06/17 07:34 2 TAB Oxycodone HCl (Oxycontin Tab) 60 mg Q12 PO 01/24/17 09:00 02/20/17 08:59 02/06/17 07:35 60 MG Oxycodone HCl (Roxicodone Immediate Rel Tab) 5 mg Q4H PRN PO 01/24/17 00:15 02/20/17 00:14 02/06/17 16:52 5 MG Trazodone HCl 50 mg 50 mg HS PO 01/24/17 21:00 02/23/17 20:59 02/05/17 21:24 50 MG Daptomycin/Sodium Chloride (Cubicin IV/Nss 50ml) 55.5 ml @ 120 mls/hr DAILY@0200 IV 01/24/17 02:00 02/06/17 23:59 02/06/17 02:09 120 MLS/HR Acetic Acid (Acetic Acid 0.25% Irrig Soln) 1 appln Q8 IR 01/26/17 14:00 02/25/17 13:59 02/06/17 13:46 1 APPLN Piperacillin Sod/ Tazobactam Sod 1 ea 1 ea UD PRN N/A 02/02/17 16:30 03/04/17 16:29 Piperacillin Sod/ Tazobactam Sod/ Dextrose (Zosyn Iv/D5 100ml) 115 ml @ 28.75 mls/ hr Q8H IV 02/02/17 22:00 02/12/17 16:29 02/06/17 11:44 28.75 MLS/HR Review of Systems Constitutional: No chills, No fatigue, No fever, No problem reported, No sweats , No weakness, No weight loss Respiratory: No cough, No dyspnea at rest, No dyspnea on exertion, No hemoptysis, No problem reported, No shortness of breath, No sputum, No wheezing Cardiovascular: No PND, No chest pain, No claudication, No edema, No orthopnea , No palpitations, No problem reported Abdomen: No GI bleeding, No constipation, No diarrhea, No nausea, No pain, No problem reported, No vomiting Musculoskeletal: + problem reported (ulceration of the left lower extremity, starting at the area of the achilles initially and currently notable spreading through the posterior ankle and leg) Neurologic: + numbness/tingling (reports no feeling below the knee left lower extremity ) Integumentary: + problem reported (ulcerations of left lower extremity over the past year ) Physical Exam Date Time Temp Pulse Resp B/P Pulse Ox O2 Delivery O2 Flow Rate FiO2 02/06/17 16:30 Room Air 02/06/17 15:15 37.0 88 18 107/55 93 Room Air 02/06/17 07:39 Room Air 02/06/17 07:39 36.9 67 16 105/66 96 Room Air 02/06/17 07:36 67 92/49 02/05/17 23:00 37.1 75 16 108/56 92 Room Air 02/05/17 21:16 69 138/64 02/05/17 19:40 Room Air resting comfortably in bed General Appearance: no apparent distress Head: normocephalic, atraumatic Eyes: normal inspection ENT: hearing grossly normal Extremities/Musculoskelatal: + pertinent finding (posterior aspect of left calcaneous appears to be full thickness and bone palpable ) Neurologic/Psych: + motor weakness (inability to actively move left foot, ankle , toes), + sensory deficit (no sensation with touch throughout the left lower extremity below the knee) Skin: + pertinent finding (significant full thickness ulceration, eschar throughout the left calcaneous, achilles, and posterior leg/calf) Laboratory Results Labs and Microbiology reviewed, unable to list due to electronics. Assessment & Plan IMPRESSION: -Severe chronic left lower extremity ulceration PLAN: -After lengthy discussion with the patient, today's findings were discussed in detail. Dr. Sutton has reqeusted surgical intervention in the form of a BKA and the patient is accepting of this. Ultimately, Dr. Renner will need to agree if this is appropriate in order to proceed accordingly. If surgery is suggested , the patient is requesting a 1 week leave from the hospital to go home prior having any type of orthopedic procedure. I will discuss findings further with Dr. Renner and we will follow accordingly. After today's consultation, I re- wrapped the patient's left lower extremity with acidic acid soaked gauze wrap, covered with ABDs, and wrapped in Kerlix held in place with silk tape. This has been the recommended form of dressing. The patient had no other questions or concerns. If so, please notify [facility] at [phone], thank you.
--- NOTE | 2017-02-06 17:46 | Progress Note ---
Progress Note Date of Service February 06, 2017. Progress Note Patient seen at bedside with left leg dressed afebrile VSS dressings intact Spent 20 minutes at bedside with Eda discussing her course over the past year. She has decided to proceed with amputation, and I agree this is her best option given the multiple setbacks in the past year. She expressed concern over cost related to surgical procedure, prosthesis and rehab. Encouraged her to discuss this with case management. At this point, I will sign off but would be glad to see her again if the need should arise.
--- NOTE | 2017-02-06 20:04 | DIAGNOSTIC IMAGING REPORT ---
LEFT TIBIA AND FIBULA 2 VIEWS CLINICAL HISTORY: Left lower extremity wound/ulceration. FINDINGS: AP and lateral views of the left tibia and fibula are obtained. No prior studies are available for comparison at the time of dictation. The skeletal structures are osteopenic. There is deformity of the proximal tibial metaphysis, likely related to age indeterminant fracture. There is mild depression of the medial tibial plateau. Nonspecific periostitis is seen involving the distal tibial and fibular shafts, likely resent chronic venous stasis. No bony erosion/destruction is identified. The knee and ankle joints are grossly maintained. Diffuse soft tissue edema is present throughout the left lower extremity. A cutaneous defect is seen posteriorly just above the ankle, possible representing a wound/ulcer. A large plantar calcaneal enthesophyte is observed. IMPRESSION: 1. There is deformity from an age indeterminant tibial plateau fracture. Clinical correlation will be required. 2. There is nonspecific periostitis involving the distal tibial and fibular shafts. This is likely related to chronic venous stasis. There is no underlying bony destruction and no convincing radiographic evidence of osteomyelitis. 3. Diffuse soft tissue edema is present throughout the left lower extremity. A cutaneous defect posteriorly just above the ankle joint may represent a wound/ulcer. Clinical correlation will be required. Electronically signed by: Elian Barber M.D. 02/06/2017 8:03 PM Dictated Date/Time: 02/06/2017 7:59 PM
--- NOTE | 2017-02-06 20:35 | Progress Note ---
Medicine Progress Note Date & Time of Visit: February 06, 2017 at 20:36. Subjective delayed entry date of service as noted above states she feels fine overall denies leg pain no dyspnea, chest pain, palpitations, dizziness no other symptoms Objective Last 8 Hrs Date Time Temp Pulse Resp B/P Pulse Ox O2 Delivery O2 Flow Rate FiO2 02/06/17 16:30 Room Air 02/06/17 15:15 37.0 88 18 107/55 93 Room Air Physical Exam: General- oriented x 3, not in distress, speaks in sentences with no effort Lungs- clear breath sounds, no rales/wheezes bilaterally Heart- normal rate, regular rhythm; no murmur Abdomen- normal bowel sounds, non distended, soft, nontender Extremities- left lower leg with mild pedal edema, dressing clear right leg essentially normal Neuro- alert, oriented x 3; no gross focal deficits except for decreased motor strength and sensation on the left leg Skin- warm & dry Assessment & Plan 67 year old female with history of Severe PAD, Lymphosarcoma, HTN, Dyslipidemia presenting with non healing left lower leg wound. NON HEALING WOUND LEFT LOWER LEG PAD WITH SEVERE SFA DISEASE S/P ATHERECTOMY AND TOOL AND DIE SUPERVISOR 01/24/17 - S/P Successful Jetstream Atherectomy and TOOL AND DIE SUPERVISOR of left SFA with drug-eluting balloon (Lutonix) on 01/24/17 - profuse bleeding noted 01/30/17 Plavix on hold, continue ASA per Cardiology Hg dropped to 7.7, 1 unit of pRBC ordered Hg improved to 9, and remains stable - on Dapto and ZOsyn transition to PO and IV antibiotics per ID on discharge Wound care Chronic Wound Left Lower Extremity with Cellulitis H/O MRSA and chronic use of antibiotic Blood/Wound cultures-Blood culture-negative Wound culture-Pseudomonas ,sensitive to current Antibiotic Doppler US: No DVT - ID on board repeat wound culture: (+) Pseudomonas Cipro changed to Zosyn IV also on Dapto IV - Dr. Sutton recommending possible BKA awaiting Ortho eval - Wound Care SVC on board Dr. Anderson also on board, no plans of repeating graft at this time Anemia Likely anemia of Chronic disease complicated by recurrent infection possible Acute blood loss secondary to wound side bleeding -management per #1 PAD Presented with rest pain Arterial Doppler:no sonographic evidence of high-grade stenosis or focal vessel cut off - was placed on heparin drip - Consult Vascular surgery S/P Successful Jetstream Atherectomy and TOOL AND DIE SUPERVISOR of left SFA with drug-eluting balloon (Lutonix) on 01/24/17 - Continue Aspirin and Plavix for 1 month recommended Plavix on hold secondary to wound side bleeding on Aspirin HTN Stable continue Coreg BID HLD Hold statin while on daptomycin DEPRESSION Stable Continue home meds H/O LYMPHOSARCOMA stable DVT PX Heparin held due to profuse bleeding 01/30/17 requiring pRBC transfusion ambulation encouraged, which she is doing SCDs avoided as patient has PAD CODE STATUS: FULL CODE DISPOSITION will need to verify with ID re: IV abx and with wound care re: wound vac patient prefers to go home with home health, IV abx and wound vac if necessary Current Inpatient Medications: Current Inpatient Medications Medications (Trade) Dose Ordered Sig/Connor Route Start Time Stop Time Status Last Admin Dose Admin Acetaminophen (Tylenol Tab) 650 mg Q4H PRN PO 01/23/17 23:30 02/22/17 23:29 Ondansetron HCl (Zofran Inj) 4 mg Q6H PRN IV 01/23/17 23:30 02/22/17 23:29 Alprazolam (Xanax Tab) 0.5 mg TID PRN PO 01/24/17 00:15 02/23/17 00:14 02/05/17 21:25 0.5 MG Amitriptyline HCl (Elavil Tab) 75 mg HS PO 01/24/17 21:00 02/23/17 20:59 02/05/17 21:24 75 MG Aspirin (Ecotrin Tab) 81 mg QAM PO 01/24/17 09:00 02/23/17 08:59 02/06/17 07:34 81 MG Carvedilol (Coreg Tab) 6.25 mg BID PO 01/24/17 09:00 02/23/17 08:59 02/05/17 21:24 6.25 MG Citalopram Hydrobromide (celeXA TAB) 20 mg DAILY PO 01/24/17 09:00 02/23/17 08:59 02/06/17 07:35 20 MG Ferrous Sulfate (Feosol Tab) 325 mg BID PO 01/24/17 09:00 02/23/17 08:59 02/06/17 07:34 325 MG Lactobacillus Acidophilus (Floranex Tab) 2 tab BID PO 01/24/17 09:00 02/23/17 08:59 02/06/17 07:34 2 TAB Oxycodone HCl (Oxycontin Tab) 60 mg Q12 PO 01/24/17 09:00 02/20/17 08:59 02/06/17 07:35 60 MG Oxycodone HCl (Roxicodone Immediate Rel Tab) 5 mg Q4H PRN PO 01/24/17 00:15 02/20/17 00:14 02/06/17 16:52 5 MG Trazodone HCl (Desyrel Tab) 50 mg HS PO 01/24/17 21:00 02/23/17 20:59 02/05/17 21:24 50 MG Acetic Acid (Acetic Acid 0.25% Irrig Soln) 1 appln Q8 IR 01/26/17 14:00 02/25/17 13:59 02/06/17 13:46 1 APPLN Piperacillin Sod/ Tazobactam Sod 1 ea 1 ea UD PRN N/A 02/02/17 16:30 03/04/17 16:29 Piperacillin Sod/ Tazobactam Sod/ Dextrose (Zosyn Iv/D5 100ml) 115 ml @ 28.75 mls/ hr Q8H IV 02/02/17 22:00 02/12/17 16:29 02/06/17 19:10 28.75 MLS/HR Trimethoprim/ Sulfamethoxazole (Septra Ds 800/ 160MG Tab) 1 tab Q12 PO 02/06/17 21:00 02/16/17 20:59
[2017-02-06] MEDS: TRAZODONE HCL 50 MG TAB PO SCH (22:18)
[2017-02-06] MEDS: AMITRIPTYLINE HCL 25 MG TAB PO SCH (22:19)
[2017-02-06] MEDS: ALPRAZOLAM 0.5 MG TAB PO PRN (22:19)
[2017-02-06 22:20] VITALS: BP 182/81
[2017-02-06] MEDS: SULFAMETHOXAZOLE/TRIMETHOPRIM DS 800/160MG TAB PO SCH (22:21)
[2017-02-06 23:10] VITALS: BP 152/72; PULSE 75; TEMP 37.1; O2SAT 97
[2017-02-07] MEDS: PIPERACILL/TAZOBAC IV 3.375 GM in DEXTROSE 5% 100ML IV SCH ×2 (03:19→11:09)
[2017-02-07] MEDS: ACETIC ACID 0.25% IRRIG SOLN 1000 ML PLCT IR SCH ×3 (05:53→19:34)
[2017-02-07 07:24] VITALS: BP 103/60; PULSE 64; TEMP 36.7; O2SAT 92
[2017-02-07] MEDS: CARVEDILOL 6.25 MG TAB PO SCH (08:11)
[2017-02-07] MEDS: SULFAMETHOXAZOLE/TRIMETHOPRIM DS 800/160MG TAB PO SCH (08:12)
[2017-02-07] MEDS: OXYCODONE HCL 20 MG TABCR (OXYCONTIN) PO SCH (08:12)
[2017-02-07] MEDS: LACTOBACILLUS ACIDOPHILUS (FLORANEX) TAB PO SCH (08:12)
[2017-02-07] MEDS: CITALOPRAM 20 MG TAB PO SCH (08:13)
[2017-02-07] MEDS: ASPIRIN 81 MG ECTAB PO SCH (08:13)
[2017-02-07] MEDS: FERROUS SULFATE 325 MG TAB PO SCH (08:13)
[2017-02-07 14:58] VITALS: BP 115/62; PULSE 66; TEMP 36.9; O2SAT 94
[2017-02-07] MEDS: OXYCODONE HCL IR 5 MG TAB (IMMEDIATE RELEASE) PO PRN (15:50)
--- NOTE | 2017-02-07 18:55 | Progress Note ---
Medicine Progress Note Date & Time of Visit: February 07, 2017 at 18:53. Subjective patient seen resting in bed, comfortable denies dyspnea, chest pain, dizziness no leg pain no other symptoms Objective Last 8 Hrs Date Time Temp Pulse Resp B/P Pulse Ox O2 Delivery O2 Flow Rate FiO2 02/07/17 14:58 36.9 66 16 115/62 94 Room Air Physical Exam: General- oriented x 3, not in distress, speaks in sentences with no effort Lungs- clear breath sounds, no rales/wheezes bilaterally Heart- normal rate, regular rhythm; no murmur Abdomen- normal bowel sounds, non distended, soft, nontender Extremities- left lower leg with mild pedal edema dressing opened: wound with some areas of granulation tissue, some pinpoint bleeding right leg essentially normal Neuro- alert, oriented x 3; no gross focal deficits except for decreased motor strength and sensation on the left leg Skin- warm & dry Assessment & Plan 67 year old female with history of Severe PAD, Lymphosarcoma, HTN, Dyslipidemia presenting with non healing left lower leg wound. NON HEALING WOUND LEFT LOWER LEG PAD WITH SEVERE SFA DISEASE S/P ATHERECTOMY AND WELCOME DESK AGENT 01/24/17 - S/P Successful Jetstream Atherectomy and WELCOME DESK AGENT of left SFA with drug-eluting balloon (Lutonix) on 01/24/17 - profuse bleeding noted 01/30/17 Plavix on hold, continue ASA per Cardiology Hg dropped to 7.7, 1 unit of pRBC ordered Hg improved to 9, and remains stable - was on Dapto--> changed to Bactrim today continued on ZOsyn Chronic Wound Left Lower Extremity with Cellulitis H/O MRSA and chronic use of antibiotic Blood/Wound cultures-Blood culture-negative Wound culture-Pseudomonas ,sensitive to current Antibiotic Doppler US: No DVT - ID on board repeat wound culture: (+) Pseudomonas Cipro changed to Zosyn IV - was on Dapto--> changed to Bactrim today continued on ZOsyn - Dr. Sutton recommending possible BKA Dr. Renner evaluating patient, awaiting recommendations re: BKA - Wound Care SVC on board Dr. Anderson also on board, no plans of repeating graft at this time Anemia Likely anemia of Chronic disease complicated by recurrent infection possible Acute blood loss secondary to wound side bleeding -management per #1 PAD Presented with rest pain Arterial Doppler:no sonographic evidence of high-grade stenosis or focal vessel cut off - was placed on heparin drip - Consult Vascular surgery S/P Successful Jetstream Atherectomy and WELCOME DESK AGENT of left SFA with drug-eluting balloon (Lutonix) on 01/24/17 - Continue Aspirin and Plavix for 1 month recommended Plavix on hold secondary to wound side bleeding on Aspirin HTN Stable continue Coreg BID HLD Hold statin while on daptomycin DEPRESSION Stable Continue home meds H/O LYMPHOSARCOMA stable DVT PX Heparin held due to profuse bleeding 01/30/17 requiring pRBC transfusion ambulation encouraged, which she is doing SCDs avoided as patient has PAD CODE STATUS: FULL CODE DISPOSITION will need to verify with ID re: IV abx and with wound care re: wound vac patient prefers to go home with home health, IV abx and wound vac if necessary Current Inpatient Medications: Current Inpatient Medications Medications (Trade) Dose Ordered Sig/Connor Route Start Time Stop Time Status Last Admin Dose Admin Acetaminophen (Tylenol Tab) 650 mg Q4H PRN PO 01/23/17 23:30 02/22/17 23:29 Ondansetron HCl (Zofran Inj) 4 mg Q6H PRN IV 01/23/17 23:30 02/22/17 23:29 Alprazolam (Xanax Tab) 0.5 mg TID PRN PO 01/24/17 00:15 02/23/17 00:14 02/06/17 22:19 0.5 MG Amitriptyline HCl (Elavil Tab) 75 mg HS PO 01/24/17 21:00 02/23/17 20:59 02/06/17 22:19 75 MG Aspirin (Ecotrin Tab) 81 mg QAM PO 01/24/17 09:00 02/23/17 08:59 02/07/17 08:13 81 MG Carvedilol (Coreg Tab) 6.25 mg BID PO 01/24/17 09:00 02/23/17 08:59 02/06/17 22:20 6.25 MG Citalopram Hydrobromide (celeXA TAB) 20 mg DAILY PO 01/24/17 09:00 02/23/17 08:59 02/07/17 08:13 20 MG Ferrous Sulfate (Feosol Tab) 325 mg BID PO 01/24/17 09:00 02/23/17 08:59 02/07/17 08:13 325 MG Lactobacillus Acidophilus (Floranex Tab) 2 tab BID PO 01/24/17 09:00 02/23/17 08:59 02/07/17 08:12 2 TAB Oxycodone HCl (Oxycontin Tab) 60 mg Q12 PO 01/24/17 09:00 02/20/17 08:59 02/07/17 08:12 60 MG Oxycodone HCl (Roxicodone Immediate Rel Tab) 5 mg Q4H PRN PO 01/24/17 00:15 02/20/17 00:14 02/07/17 15:50 5 MG Trazodone HCl (Desyrel Tab) 50 mg HS PO 01/24/17 21:00 02/23/17 20:59 02/06/17 22:18 50 MG Acetic Acid (Acetic Acid 0.25% Irrig Soln) 1 appln Q8 IR 01/26/17 14:00 02/25/17 13:59 02/07/17 13:38 1 APPLN Piperacillin Sod/ Tazobactam Sod 1 ea 1 ea UD PRN N/A 02/02/17 16:30 03/04/17 16:29 Piperacillin Sod/ Tazobactam Sod/ Dextrose (Zosyn Iv/D5 100ml) 115 ml @ 28.75 mls/ hr Q8H IV 02/02/17 22:00 02/12/17 16:29 02/07/17 11:09 28.75 MLS/HR Trimethoprim/ Sulfamethoxazole (Septra Ds 800/ 160MG Tab) 1 tab Q12 PO 02/06/17 21:00 02/16/17 20:59 02/07/17 08:12 1 TAB
--- NOTE | 2017-02-07 20:13 | DIAGNOSTIC IMAGING REPORT ---
LEFT HIP UNILATERAL 2 VIEWS CLINICAL HISTORY: Left hip pain. COMPARISON: 03/13/2015 DISCUSSION: There is an intertrochanteric left hip fracture which has been internally fixated with a trochanteric nail and intramedullary adalid. There is nonunion of the fracture. There is an abnormal trabecular pattern of the bone within the left femur and iliac bone. Soft tissue calcifications are visualized within the lateral soft tissues superior to the intramedullary adalid. There are extensive vascular calcifications present. There is a lucency surrounding the intramedullary adalid raise the possibility of abnormal motion. IMPRESSION: 1. 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 Abnormal trabecular pattern of the left proximal femur and left iliac bone. Electronically signed by: Klaus Briscoe M.D. 02/07/2017 8:12 PM Dictated Date/Time: 02/07/2017 8:08 PM
--- NOTE | 2017-02-07 20:15 | DIAGNOSTIC IMAGING REPORT ---
LEFT FEMUR 2 VIEWS ROUTINE CLINICAL HISTORY: Left thigh pain COMPARISON: None. DISCUSSION: There is an internally fixated intertrochanteric left hip fracture. Trochanteric canal and interlocking intramedullary adalid. There is nonunion of the fracture. There is an abnormal trabecular pattern of the femur. There are extensive vascular calcifications. There is lucency surrounding the proximal aspect of the adalid raise the possibility of abnormal motion. 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 Abnormal trabecular pattern with cortical thickening and sclerosis involving the proximal femur. Electronically signed by: Klaus Briscoe M.D. 02/07/2017 8:13 PM Dictated Date/Time: 02/07/2017 8:12 PM
[2017-02-07 23:09] VITALS: BP 129/73; PULSE 77; TEMP 37.1; O2SAT 92
[2017-02-08] MEDS: OXYCODONE HCL IR 5 MG TAB (IMMEDIATE RELEASE) PO PRN ×2 (02:17→14:05)
[2017-02-08] MEDS: PIPERACILL/TAZOBAC IV 3.375 GM in DEXTROSE 5% 100ML IV SCH ×3 (02:33→19:22)
[2017-02-08] MEDS: ACETIC ACID 0.25% IRRIG SOLN 1000 ML PLCT IR SCH ×3 (06:08→21:28)
[2017-02-08 07:28] VITALS: BP 100/52; PULSE 72; TEMP 37.1; O2SAT 95
[2017-02-08 07:36] LABS: BASO % 0.9 %; BASO ABS # 0.05 K/uL (0-0.2); COMPLETE YES; EOS % 7.5 %; IG% 0.5 %; LYMPH % 30.6 %; LYMPH ABS # 1.71 K/uL (1.2-3.4); MEAN CELL VOLUME 89.6 fL (80-100); MEAN CORPUSCULAR HEMOGLOBIN 27.5 pg (25-34); MEAN CORPUSCULAR HGB CONC 30.7 g/dl (32-36); MONO % 10.4 %; NEUT % 50.1 %; PLATELET COUNT 311 K/uL (130-400); RED BLOOD COUNT 3.35 M/uL (4.2-5.4); WHITE BLOOD COUNT 5.59 K/uL (4.8-10.8)
[2017-02-08] MEDS: OXYCODONE HCL 20 MG TABCR (OXYCONTIN) PO SCH ×2 (07:54→21:23)
[2017-02-08] MEDS: ASPIRIN 81 MG ECTAB PO SCH (07:55)
[2017-02-08] MEDS: FERROUS SULFATE 325 MG TAB PO SCH ×2 (07:56→21:25)
[2017-02-08] MEDS: LACTOBACILLUS ACIDOPHILUS (FLORANEX) TAB PO SCH ×2 (07:56→21:26)
[2017-02-08] MEDS: SULFAMETHOXAZOLE/TRIMETHOPRIM DS 800/160MG TAB PO SCH ×2 (07:56→22:20)
[2017-02-08] MEDS: CITALOPRAM 20 MG TAB PO SCH (07:57)
[2017-02-08] MEDS: CARVEDILOL 6.25 MG TAB PO SCH ×2 (07:58→21:24)
[2017-02-08 07:59] VITALS: BP 96/55
[2017-02-08 08:04] LABS: BUN/CREATININE RATIO 21.4 (10-20); CREATININE 0.59 mg/dl (0.60-1.20); POTASSIUM 4.4 mmol/L (3.5-5.1)
[2017-02-08 08:29] LABS: CALCIUM 8.7 mg/dl (8.5-10.1)
--- NOTE | 2017-02-08 11:05 | Infectious Disease Progress Nt ---
Progress Note Date of Service February 08, 2017. Subjective Pt evaluation today including: conversation w/ patient, physical exam, chart review, lab review, review of studies, review of inpatient medication list Patient is very fatigued today. She states that she is now being evaluated for possible AKA, but is unsure of who will be making this decision. I have reviewed orthopedic evaluation and Dr. Beltran's notes. It is noted that the patient may transition to home and then have amputation as an outpatient. She continues on IV Zosyn and Bactrim. WBC count today was 5.59. Hgb stable at 9.2. Left hip X-Ray showed nonunion of an internally fixated intertrochanteric left hip fracture. All Other Systems: Reviewed and Negative Medications Current Inpatient Medications Medications (Trade) Dose Ordered Sig/Connor Route Start Time Stop Time Status Last Admin Dose Admin Acetaminophen (Tylenol Tab) 650 mg Q4H PRN PO 01/23/17 23:30 02/22/17 23:29 Ondansetron HCl (Zofran Inj) 4 mg Q6H PRN IV 01/23/17 23:30 02/22/17 23:29 Alprazolam (Xanax Tab) 0.5 mg TID PRN PO 01/24/17 00:15 02/23/17 00:14 02/06/17 22:19 0.5 MG Amitriptyline HCl (Elavil Tab) 75 mg HS PO 01/24/17 21:00 02/23/17 20:59 02/06/17 22:19 75 MG Aspirin (Ecotrin Tab) 81 mg QAM PO 01/24/17 09:00 02/23/17 08:59 02/08/17 07:55 81 MG Carvedilol (Coreg Tab) 6.25 mg BID PO 01/24/17 09:00 02/23/17 08:59 02/06/17 22:20 6.25 MG Citalopram Hydrobromide (celeXA TAB) 20 mg DAILY PO 01/24/17 09:00 02/23/17 08:59 02/08/17 07:57 20 MG Ferrous Sulfate (Feosol Tab) 325 mg BID PO 01/24/17 09:00 02/23/17 08:59 02/08/17 07:56 325 MG Lactobacillus Acidophilus (Floranex Tab) 2 tab BID PO 01/24/17 09:00 02/23/17 08:59 02/08/17 07:56 2 TAB Oxycodone HCl (Oxycontin Tab) 60 mg Q12 PO 01/24/17 09:00 02/20/17 08:59 02/08/17 07:54 60 MG Oxycodone HCl (Roxicodone Immediate Rel Tab) 5 mg Q4H PRN PO 01/24/17 00:15 02/20/17 00:14 02/08/17 02:17 5 MG Trazodone HCl (Desyrel Tab) 50 mg HS PO 01/24/17 21:00 02/23/17 20:59 02/06/17 22:18 50 MG Acetic Acid (Acetic Acid 0.25% Irrig Soln) 1 appln Q8 IR 01/26/17 14:00 02/25/17 13:59 02/08/17 06:08 1 APPLN Piperacillin Sod/ Tazobactam Sod 1 ea 1 ea UD PRN N/A 02/02/17 16:30 03/04/17 16:29 Piperacillin Sod/ Tazobactam Sod/ Dextrose (Zosyn Iv/D5 100ml) 115 ml @ 28.75 mls/ hr Q8H IV 02/02/17 22:00 02/12/17 16:29 02/08/17 10:42 28.75 MLS/HR Trimethoprim/ Sulfamethoxazole (Septra Ds 800/ 160MG Tab) 1 tab Q12 PO 02/06/17 21:00 02/16/17 20:59 02/08/17 07:56 1 TAB Objective Vital Signs Date Time Temp Pulse Resp B/P Pulse Ox O2 Delivery O2 Flow Rate FiO2 02/08/17 07:59 96/55 02/08/17 07:28 37.1 72 16 100/52 95 Room Air 02/07/17 23:45 Room Air 02/07/17 23:09 37.1 77 14 129/73 92 Room Air 02/07/17 15:30 Room Air 02/07/17 14:58 36.9 66 16 115/62 94 Room Air Physical Exam General Appearance: WD/WN, no apparent distress, + pertinent finding (lethargic , falls asleep on and off during exam) Eyes: normal inspection, sclerae normal ENT: hearing grossly normal Neck: supple, trachea midline Respiratory/Chest: no respiratory distress, no accessory muscle use Cardiovascular: regular rate, rhythm Extremities: + pertinent finding (left lower extremity with large dressing in place. C/D/I. Note moderate left lower extremity edema and mild left knee edema. ) Neurologic/Psychiatric: + pertinent finding (lethargic) Skin: warm/dry, no rash Laboratory Results LEFT HIP UNILATERAL 2 VIEWS CLINICAL HISTORY: Left hip pain. COMPARISON: 03/13/2015 DISCUSSION: There is an intertrochanteric left hip fracture which has been internally fixated with a trochanteric nail and intramedullary adalid. There is nonunion of the fracture. There is an abnormal trabecular pattern of the bone within the left femur and iliac bone. Soft tissue calcifications are visualized within the lateral soft tissues superior to the intramedullary adalid. There are extensive vascular calcifications present. There is a lucency surrounding the intramedullary adalid raise the possibility of abnormal motion. IMPRESSION: 1. 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 Abnormal trabecular pattern of the left proximal femur and left iliac bone. Last 24 Hours Test 02/08/17 07:11 White Blood Count 5.59 K/uL Red Blood Count 3.35 M/uL Hemoglobin 9.2 g/dL Hematocrit 30.0 % Mean Corpuscular Volume 89.6 fL Mean Corpuscular Hemoglobin 27.5 pg Mean Corpuscular Hemoglobin Concent 30.7 g/dl Platelet Count 311 K/uL Mean Platelet Volume 9.0 fL Neutrophils (%) (Auto) 50.1 % Lymphocytes (%) (Auto) 30.6 % Monocytes (%) (Auto) 10.4 % Eosinophils (%) (Auto) 7.5 % Basophils (%) (Auto) 0.9 % Neutrophils # (Auto) 2.80 K/uL Lymphocytes # (Auto) 1.71 K/uL Monocytes # (Auto) 0.58 K/uL Eosinophils # (Auto) 0.42 K/uL Basophils # (Auto) 0.05 K/uL RDW Standard Deviation 48.0 fL RDW Coefficient of Variation 14.8 % Immature Granulocyte % (Auto) 0.5 % Immature Granulocyte # (Auto) 0.03 K/uL Sodium Level 138 mmol/L Potassium Level 4.4 mmol/L Chloride Level 102 mmol/L Carbon Dioxide Level 29 mmol/L Anion Gap 7.0 mmol/L Blood Urea Nitrogen 13 mg/dl Creatinine 0.59 mg/dl Est Creatinine Clear Calc Drug Dose 88.5 ml/min Estimated GFR () 110.7 Estimated GFR (Non- 95.5 BUN/Creatinine Ratio 21.4 Random Glucose 84 mg/dl Calcium Level 8.7 mg/dl Assessment and Plan Patient with severe chronic left lower extremity ulceration in the setting of PAD and history of polymicrobial infection of the wound since admission growing Pseudomonas- now resistant to quinolones. She is currently on PO Bactrim and IV Zosyn. If patient is anticipating D/C to home prior to amputation, could continue IV Zosyn via continuous infusion at home if this is covered for the patient along with PO Bactrim. We will follow. PROVIDER ADDENDUM: Patient reviewed with Ms. Arndt. Agree with above assessment.
--- NOTE | 2017-02-08 11:44 | DIAGNOSTIC IMAGING REPORT ---
LEFT KNEE 4 OR MORE VIEWS CLINICAL HISTORY: Left knee pain COMPARISON: None. DISCUSSION: There is a lateral tibial plateau fracture. The bones are osteopenic. There are postsurgical changes of femoral rodding. There is a small joint effusion. There is no evidence for soft tissue swelling. IMPRESSION: Depressed lateral tibial plateau fracture. Osteopenia. Small joint effusion. Electronically signed by: Klaus Briscoe M.D. 02/08/2017 11:43 AM Dictated Date/Time: 02/08/2017 11:40 AM
--- NOTE | 2017-02-08 13:38 | ORTHOPEDIC CONSULTATION ---
DATE OF CONSULTATION: 02/07/2017 CHIEF COMPLAINT: Left leg wound. HISTORY OF PRESENT ILLNESS: Eda is an unfortunate 67-year-old female with a long and complicated history involving her left lower extremity. She is currently admitted to the hospital on intravenous antibiotics due to a large wound on the posterior aspect of her left leg, ankle and foot. 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 She developed a left femoral fracture in approximately 2011, treated with an intramedullary adalid by Dr. Wynne. She subsequently developed a nonunion and had a revision of this fixation in approximately 2012. Somewhere around that time while she was at [facility], it was noted that she had a drop foot. She does not recall having this previously. She was given an ankle brace, which sounds like an AFO. The AFO appears to have worked temporarily, but she developed some apparent skin breakdown because of it. She then subsequently underwent a procedure in approximately September 2015 for a lengthening of her Achilles tendon and a tendon transfer, again done by Dr. Wynne. Subsequent to that, she developed skin breakdown on her left leg area. This has progressed to varying degrees over the past year and a half. She has had 2 vascular interventions done, one in July and one approximately 2 weeks ago to improve her blood flow. She also had a skin graft done with Dr. Anderson. The circulation surgeries were initially done with Dr. Gutierrez and then with Dr. Leal. She reported having a bleeding episode recently, related to her most recent vascular procedure. She had to receive a blood transfusion. The skin graft with Dr. Anderson initially had some success, but she has subsequently developed further skin breakdown. Eda ambulates with a walker. She cannot walk without the walker. She has had episodes where her knee gives away. She notes the inability to move large portions of her left leg and she additionally has markedly diminished sensation in her left lower extremity. PAST MEDICAL HISTORY: Significant for anxiety, hypertension, femur fracture, and depression. She has had MRSA, peripheral artery disease, a patent foramen ovale, and liposarcoma. She has had the skin graft surgery, the ankle reconstructive surgery as well as 2 hip surgeries for the fracture and one surgery for the sarcoma. She has also had a spinal fusion, tonsillectomy and adenoidectomy. SOCIAL HISTORY: She does not currently smoke or drink. ALLERGIES: VANCOMYCIN AND CETIRIZINE. CURRENT MEDICATIONS: Include Bactrim, piperacillin tazobactam, acetic acid dressings, Elavil, trazodone, aspirin, Coreg, Celexa, iron, lactobacillus, oxycodone, Xanax, Tylenol, and Zofran. PHYSICAL EXAMINATION: EXTREMITIES: Examination of her left lower extremity reveals no sensation of the calf or foot. She has no ability to move the toes or ankle. Pedal pulses are not palpable. Her foot is warm with capillary refill less than 2 seconds. She has a small abrasion on the dorsal aspect of her 3rd toe. There is a resolving area of skin breakdown several centimeters in diameter over the dorsum of her foot. There is a large area of full thickness skin breakdown including down to the level of the calcaneus into the Achilles tendon and the posterior soft tissue musculature. This extends from the plantar aspect of the foot up to just above the mid portion of the posterior calf. It extends almost to the midline both medially and laterally. She does not have any anterior breakdown. She cannot move her toes or her ankle. She cannot do a straight leg raise. She does not have any ability to extend her left leg. Her knee flexor strength is graded 4/5. She can flex and extend, abduct and adduct her hip with strength, which is graded 4+ to 5-/5. She has full knee extension and flexion to about 120, but cannot lift her leg off the bed nor can she extend her left knee. The left knee is not swollen. She has at least a 1+ positive posterior drawer and she has 1+ varus and valgus laxity of the knee in mid position. The knee is stable in full extension. Her Nahun is intact. There is no knee effusion or tenderness. The skin around the knee appears to be normal. There were several scars about the left upper leg. There is marked induration of the proximal half of the thigh and hip soft tissues consistent with radiation fibrosis. There were no open wounds present. Her hip can easily be flexed to 90. She has minimal internal and external rotatory movements of her left hip. She does have some palpably enlarged left inguinal nodes. She did report approximately 3 or 4 weeks ago that her knee gave out on her and she fell and hit her knee. LABORATORY DATA: Her white count is normal. Hematocrit is 30 and platelet counts are 311. Her INR is 1.4. Her PTT is 35. PRP shows a low creatinine, otherwise within normal limits. DIAGNOSTIC IMAGING: Radiographs of the left hip, femur and tibia are obtained and reviewed. There is an incomplete healing of left subtrochanteric femur fracture. There is a long trochanteric femoral nail in place. There is increased radiodensity of the bony structures of the hip and hemipelvis, atherosclerotic vascular disease is noted. There is no hip arthritis. The spiral blade is located within the superior and anterior portion of the femoral head. There may be some lucency around the tip of the spiral blade. There are not very good prior films for comparison. Femoral films demonstrate the vascular calcification, patchy bony porosis and sclerosis in the proximal half of the femur, perhaps related to radiation changes. There are 2 screws distally. The adalid is intact. Her tib-fib films show an age indeterminate tibial plateau fracture of the medial tibial plateau. There is bony reaction over the lower quarter of the tib and fib. There is no evidence of osteomyelitis. There is evidence of soft tissue damage present. IMPRESSION: 1. History of liposarcoma, status post surgical excision and radiation involving the left hip. 2. 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 3. 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 4. Age indeterminate tibial plateau fracture with ligamentous laxity. 5. Left lower extremity neuropathy. 6. Weakness of the calf and foot muscles and absence of knee extension strength secondary to above. 7. Large posterior soft tissue wound involving the left lower leg and foot area with exposed bone and tendon with necrosis. PLAN: This is a very complicated situation involving this unfortunate patient's leg. I agree that the leg wound is not salvageable and that an amputation is likely necessary. The level of this amputation is uncertain at this point based upon some of the other issues. In particular, the deficient posterior soft tissue envelope I think would make a standard below-knee amputation with a residual tibial length of sufficient length to be functional a more challenging prospect. There may not be enough viable soft tissue to ensure coverage over a below-knee amputation. Additionally, she does not have the ability to extend her knee and therefore, the functionality of below-knee prosthesis would be in question. Her ability to heal because of her vascular problems, neuropathy as well as postradiation changes is concerning. It appears that she has a tibial plateau fracture, age indeterminate, but this may be recent due to her fall. She also has a potential nonunion of a left subtrochanteric femur fracture. There is a concern for hardware failure and in particular cut out due to the failure of healing as well as the positioning of the implants. At this time, I would continue with her present treatment. I think that a potential amputation is in order. I have asked one of my colleagues to help assess the patient. The complexity of her care may be such that she would be better off at a tertiary care center like [place].
[2017-02-08 15:03] VITALS: BP 108/56; PULSE 72; TEMP 37; O2SAT 95
--- NOTE | 2017-02-08 18:46 | PROGRESS NOTE ---
DATE: 02/08/2017 SUBJECTIVE: X-rays of the knee show an acute appearing medial tibial plateau fracture. The hip and femur x-rays show evidence of a postradiation changes likely necrosis involving the femur. The implants are intact. The subtrochanteric femur fracture does not appear to be united. The lag screw was positioned superior and anterior within the head. There are postradiation changes involving the hemipelvis as well. She cannot actively extend her knee. Her knee range of motion is from 0-90 degrees. She does have intact but slightly diminished sensation in the soft tissue around the knee and upper tibia. She has normal-appearing skin around the knee area. There is radiation changes beginning in the mid portion of the femur proximally. There is possibility that the femoral nonunion could cause further problems, the implant could fail, the implant may cut out. A weightbearing prosthesis may be an issue due to radiation fibrosis. The situation with her femoral fracture and neuropathy, perhaps affecting sensation of the residual limb stump. Given the lack of knee extension as well as the level of the skin disease posteriorly on the calf, I would recommend a through knee amputation and she is amenable to this. We discussed the treatment options, risks and benefits. She does not have any issues with metal sensitivity or bleeding, she has had MRSA. She may or may not be able to be fitted with a prosthesis for ambulation. Ambulation may or may not be possible after the procedure. She may need to use crutches or a walker. A mixer attendant will be helpful afterwards. She would also likely need to go to a halfway facility or rehab facility post-surgical. She would like to go home, which I think is fine. She has inquired about root and duration of antibiotics. I will leave this up to infectious diseases and her hospitalist. I think that continuing antibiotics in some form would be appropriate. We are tentatively planning on having her readmitted Monday or Monday of next week for through knee amputation. She can be discharged at any time. I will follow up with her Monday in my office to do further paperwork. DVT prophylaxis per the primary service; however, she would need to have her any anticoagulation stopped the day preceding her surgery. which we will arrange. I would not recommend Coumadin at this time but an injectable anticoagulant like Lovenox or heparin would be appropriate, if DVT prophylaxis is necessary. Risks of infection, bleeding, pain, scarring, nerve and blood vessel damage, blood clot, embolism, heart attack, stroke, discussed. There are risks of skin healing problems and breakdown problems related to neuropathy and radiation changes and amputation at a higher level may be necessary, use of a prosthesis in ambulation may or may not be a possibility.
[2017-02-08] MEDS: TRAZODONE HCL 50 MG TAB PO SCH ×2 (21:00→21:25)
[2017-02-08] MEDS: AMITRIPTYLINE HCL 25 MG TAB PO SCH ×2 (21:00→21:24)
--- NOTE | 2017-02-08 22:33 | Progress Note ---
Internal Med Progress Note Date of Service: February 08, 2017. Provider Documentation: SUBJECTIVE: no fever or chills , no complain of pain or discomfort hoping to go home for a week , prior to re admission for surgery -Above knee amputation of left lower ext OBJECTIVE: Vital Signs-as noted below Exam: General- no sign of distress, comfortable Lungs- clear breath sounds, no rales/wheezes bilaterally Heart- normal rate, regular rhythm; no murmur Abdomen- normal bowel sounds, non distended, soft, nontender Extremities- left lower leg with mild pedal edema dressing present, no bleeding or drainage noted , left knee mild swelling, non tender , no overlying erythema noted , limited movement /extension of left knee due to pain and discomfort right leg essentially normal Neuro- alert , awake , oriented X3 , no focal neurological deficit Lab data as noted below. ASSESSMENT & PLAN: 67 year old female with history of Severe PAD, Lymphosarcoma, HTN, Dyslipidemia presented with non healing left lower leg wound. NON HEALING WOUND LEFT LOWER LEG/CELLULITIS PERIPHERAL VASCULAR DISEASE WITH SEVERE SFA DISEASE S/P ATHERECTOMY AND PHARMACY DATA ANALYST 01/24/17 - S/P Successful Jet stream Atherectomy and PHARMACY DATA ANALYST of left SFA with drug-eluting balloon (Lutonix) on 01/24/17 - developed complication post procedure -profuse bleeding on left lower ext on 01/30/17 Plavix kept on hold, ASA continued as per Cardiology Wound culture-Pseudomonas , on Zosyn Doppler US: No DVT - ID on board-appreciate input - Dr. Sutton recommending possible BKA given extensive wound and non healing of ulcer orthopedics recommend AKA of left lower ext , pt is in agreement scheduled to have surgical procedure next week ACUTE BLOOD LOSS ANEMIA : due to surgery /post op state Hg dropped to 7.7, s/p total 3 units of PRBC transfusion ( 2 units on 01/27/17 ; 1 units on 01/31/17 ) Hg improved to 9, and remains stable PAD Presented with rest pain Arterial Doppler:no sonographic evidence of high-grade stenosis or focal vessel cut off - was placed on heparin drip - Consult Vascular surgery S/P Successful Jetstream Atherectomy and PHARMACY DATA ANALYST of left SFA with drug-eluting balloon (Lutonix) on 01/24/17 - Continue Aspirin and Plavix for 1 month recommended Plavix on hold secondary to wound side bleeding on Aspirin HTN Stable continue Coreg BID DEPRESSION Stable Continue home meds H/O LYMPHOSARCOMA stable DVT PX Heparin held due to profuse bleeding 01/30/17 requiring pRBC transfusion ambulation encouraged, which she is doing SCDs avoided as patient has PAD CODE STATUS: FULL CODE DISPOSITION pt wants to go home and return next week for Above knee amputation wants to come to [facility] for daily IV infusion will D/w ID for possible once daily IV abx regimen pt will continue with PO Bactrim Vital Signs: Date Time Temp Pulse Resp B/P Pulse Ox O2 Delivery O2 Flow Rate FiO2 02/09/17 08:01 Room Air 02/09/17 07:26 36.5 69 16 102/57 94 Room Air 02/08/17 23:45 Room Air 02/08/17 23:30 37.4 81 18 115/57 94 Room Air 02/08/17 16:00 Room Air 02/08/17 15:03 37.0 72 16 108/56 95 Room Air Lab Results:
[2017-02-08 23:30] VITALS: BP 115/57; PULSE 81; TEMP 37.4; O2SAT 94
[2017-02-09] MEDS: PIPERACILL/TAZOBAC IV 3.375 GM in DEXTROSE 5% 100ML IV SCH ×2 (03:25→10:42)
[2017-02-09] MEDS: OXYCODONE HCL IR 5 MG TAB (IMMEDIATE RELEASE) PO PRN ×2 (06:04→16:21)
[2017-02-09] MEDS: ACETIC ACID 0.25% IRRIG SOLN 1000 ML PLCT IR SCH ×2 (06:04→14:17)
[2017-02-09 07:26] VITALS: BP 102/57; PULSE 69; TEMP 36.5; O2SAT 94
[2017-02-09] MEDS: OXYCODONE HCL 20 MG TABCR (OXYCONTIN) PO SCH (07:46)
[2017-02-09] MEDS: CARVEDILOL 6.25 MG TAB PO SCH (07:47)
[2017-02-09] MEDS: FERROUS SULFATE 325 MG TAB PO SCH (07:47)
[2017-02-09] MEDS: ASPIRIN 81 MG ECTAB PO SCH (07:47)
[2017-02-09] MEDS: LACTOBACILLUS ACIDOPHILUS (FLORANEX) TAB PO SCH (07:48)
[2017-02-09] MEDS: SULFAMETHOXAZOLE/TRIMETHOPRIM DS 800/160MG TAB PO SCH (07:48)
[2017-02-09] MEDS: CITALOPRAM 20 MG TAB PO SCH (07:49)
--- NOTE | 2017-02-09 08:41 | PROGRESS NOTE ---
DATE: 02/06/2017 SUBJECTIVE: The patient was seen again this morning for further discussion on the potential for amputation of the left lower extremity. The patient states she has discussed this with her and at this time is in agreement with the process. The patient states that she has no particular preference in any orthopedic surgeon at this time. The patient denies any other systemic complaints. OBJECTIVE: The patient's vital signs were reviewed and found to be unremarkable. The patient is afebrile. There is no appreciable change in the appearance of the extremity at this time. No increased drainage or swelling. ASSESSMENT: Traumatic wound left lower extremity with secondary postoperative ulcerations and a stage IV pressure ulcer of the left heel. PLAN: At this time, it is recommended that the patient have an orthopedic consultation, I will contact Dr. Bolivar Renner for this and the patient is in agreement. The patient understands that amputation is an appropriate level of treatment for her current condition. She also requested that she be able to go home for a week prior to this and this will be discussed with infectious disease to continue to manage her current antibiotic therapy. The patient will continue to be monitored during her hospital course and following her amputation.
--- NOTE | 2017-02-09 09:32 | Progress Note ---
Orthopedic SOAP Note Subjective Date of Service: February 09, 2017. 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 Renner patient pleased with plan cardiac: RRR, S1 > S2, no murmurs rubs or gallops respiratory: lungs clear to auscultation, no wheezing rales or rhonchi GI: abdomen soft nontender nondistended, normoactive bowels sounds all 4 quadrants N/V and Musculoskeletal exam: see previous ortho note Date Time Temp Pulse Resp B/P Pulse Ox O2 Delivery O2 Flow Rate FiO2 02/09/17 08:01 Room Air 02/09/17 07:26 36.5 69 16 102/57 94 Room Air 02/08/17 23:45 Room Air 02/08/17 23:30 37.4 81 18 115/57 94 Room Air 02/08/17 16:00 Room Air 02/08/17 15:03 37.0 72 16 108/56 95 Room Air Assessment Severe chronic left lower extremity wound and ulceration Plan continue to monitor medications as ordered per medicine and I&D per Dr. Renner, patient can be discharged today medicine to place DC order and I&D to advise regarding home ABX surgery scheduled with Dr. Renner Monday at the [facility] for Through the knee amputation of left lower extremity will be NPO after Midnight on Monday will call the day before surgery to confirm arrival time consents completed and signed accordingly health questionnaire pre anesthesia form completed by patient any further questions or concerns please notify [facility] accordingly, thank you
[2017-02-09] MEDS ORDERED: SULF-183 PO (10:24)
[2017-02-09] MEDS ORDERED: TOBRAMYCIN CONSULT ACTIVE PRN (11:00)
[2017-02-09] MEDS ORDERED: GENTAMICIN CONSULT ACTIVE PRN (11:00)
--- NOTE | 2017-02-09 11:11 | Infectious Disease Progress Nt ---
Progress Note Date of Service February 09, 2017. Subjective Pt evaluation today including: conversation w/ patient, physical exam, chart review, lab review, review of studies, conversation w/ client care consultant, review of inpatient medication list Patient is feeling well today and is anxious to go home. She will be returning to the hospital on Monday morning for AKA. Her creatinine has been stable at 0.59. She has some pain in her left lower extremity on and off. I did discuss this patient in detail with Dr. Diaz as well and also spoke with pharmacy. All Other Systems: Reviewed and Negative Medications Current Inpatient Medications Medications (Trade) Dose Ordered Sig/Connor Route Start Time Stop Time Status Last Admin Dose Admin Acetaminophen (Tylenol Tab) 650 mg Q4H PRN PO 01/23/17 23:30 02/22/17 23:29 Ondansetron HCl (Zofran Inj) 4 mg Q6H PRN IV 01/23/17 23:30 02/22/17 23:29 Alprazolam (Xanax Tab) 0.5 mg TID PRN PO 01/24/17 00:15 02/23/17 00:14 02/06/17 22:19 0.5 MG Amitriptyline HCl (Elavil Tab) 75 mg HS PO 01/24/17 21:00 02/23/17 20:59 02/08/17 21:00 75 MG Aspirin (Ecotrin Tab) 81 mg QAM PO 01/24/17 09:00 02/23/17 08:59 02/09/17 07:47 81 MG Carvedilol (Coreg Tab) 6.25 mg BID PO 01/24/17 09:00 02/23/17 08:59 02/09/17 07:47 6.25 MG Citalopram Hydrobromide (celeXA TAB) 20 mg DAILY PO 01/24/17 09:00 02/23/17 08:59 02/09/17 07:49 20 MG Ferrous Sulfate (Feosol Tab) 325 mg BID PO 01/24/17 09:00 02/23/17 08:59 02/09/17 07:47 325 MG Lactobacillus Acidophilus (Floranex Tab) 2 tab BID PO 01/24/17 09:00 02/23/17 08:59 02/09/17 07:48 2 TAB Oxycodone HCl (Oxycontin Tab) 60 mg Q12 PO 01/24/17 09:00 02/20/17 08:59 02/09/17 07:46 60 MG Oxycodone HCl (Roxicodone Immediate Rel Tab) 5 mg Q4H PRN PO 01/24/17 00:15 02/20/17 00:14 02/09/17 06:04 5 MG Trazodone HCl (Desyrel Tab) 50 mg HS PO 01/24/17 21:00 02/23/17 20:59 02/08/17 21:00 50 MG Acetic Acid (Acetic Acid 0.25% Irrig Soln) 1 appln Q8 IR 01/26/17 14:00 02/25/17 13:59 02/09/17 06:04 1 APPLN Trimethoprim/ Sulfamethoxazole 1 tab 1 tab Q12 PO 02/06/17 21:00 02/16/17 20:59 02/09/17 07:48 1 TAB Tobramycin Sulfate/Dextrose (Nebcin Inj/D5 100ml) 111.25 ml @ 100 mls/ hr DAILY IV 02/10/17 09:00 02/20/17 08:59 UNV Tobramycin Sulfate (Consult) 1 ea UD PRN N/A 02/09/17 11:00 03/11/17 10:59 Objective Vital Signs Date Time Temp Pulse Resp B/P Pulse Ox O2 Delivery O2 Flow Rate FiO2 02/09/17 08:01 Room Air 02/09/17 07:26 36.5 69 16 102/57 94 Room Air 02/08/17 23:45 Room Air 02/08/17 23:30 37.4 81 18 115/57 94 Room Air 02/08/17 16:00 Room Air 02/08/17 15:03 37.0 72 16 108/56 95 Room Air Physical Exam General Appearance: WD/WN, no apparent distress Eyes: normal inspection, sclerae normal ENT: hearing grossly normal Neck: supple, trachea midline Respiratory/Chest: no respiratory distress, no accessory muscle use Cardiovascular: regular rate, rhythm Extremities: + pertinent finding (left lower extremity with large dressing in place) Neurologic/Psychiatric: alert, normal mood/affect Skin: normal color, warm/dry, no rash Assessment and Plan Patient with severe chronic left lower extremity ulceration in the setting of PAD and history of polymicrobial infection of the wound since admission growing Pseudomonas- now resistant to quinolones. She is currently on PO Bactrim and IV Zosyn. Will transition to IV Tobramycin for once daily dosing as an outpatient. Patient is very anxious to go home, so will send her home after her random level is drawn this evening. She will then need a dose adjustment for tomorrow's dose pending level. She will continue on PO Bactrim and IV Tobramycin until her AKA next week. We will follow her labs/IV abx therapy. Thanks PROVIDER ADDENDUM: Patient reviewed with Ms. Arndt. Agree with above assessment.
[2017-02-09] MEDS ORDERED: ALPR-411 PO (11:16)
[2017-02-09] MEDS ORDERED: OXYC60TA8 PO (11:16)
[2017-02-09] MEDS ORDERED: OXYC1TAB3 PO (11:16)
--- NOTE | 2017-02-09 11:17 | Discharge Instructions ---
Discharge Instructions Date of Service February 09, 2017. Admission Reason for Admission: Leg Pain, Left Discharge Discharge Diagnosis / Problem: LEFT LOWER EXTREMITY CELLULIITS Discharge Goals Goal(s): Decrease discomfort, Diagnostic testing, Therapeutic intervention Activity Recommendations Activity Limitations: resume your previous activity . Instructions / Follow-Up Instructions / Follow-Up HOSPITAL FOLLOW UP DR GRAY OFFICE WILL CALL WITH APPOINTMENT LAB WORK: TOBRAMYCIN LEVEL -TO BE DRAWN PRIOR TO NEXT DOSE ON Monday02/13/17 BASIC METABOLIC PANEL ON Monday02/13/17 YOU ARE SCHEDULED TO HAVE YOUR NEXT SURGERY -ABOVE KNEE AMPUTATION OF LEFT LEG ON Monday02/14/17 AT [facility] BY DR RED PLEASE CALL ORTHOPEDICS SERVICE ON Monday02/13/17 NOTHING BY MOUTH AFTER MIDNIGHT ON Monday02/13/17 DO NOT TAKE ASPIRIN ON MONDAY Current Hospital Diet Patient's current hospital diet: Regular Diet Discharge Diet Recommended Diet: Regular Diet Procedures Procedures Performed: Bilateral Lower Extremity Angiogram Percutaneous Transluminal Angioplasty Left Superficial Femoral Artery Atherectomy of Left Superficial Femoral Artery Moderate Sedation [id number] Pending Studies Studies pending at discharge: yes List of pending studies: LAB WORK: TOBRAMYCIN LEVEL -TO BE DRAWN PRIOR TO NEXT DOSE ON Monday02/13/17 BASIC METABOLIC PANEL ON Monday02/13/17 Medical Emergencies . Who to Call and When: Medical Emergencies: If at any time you feel your situation is an emergency, please call 911 immediately. . Non-Emergent Contact Non-Emergency issues call your: Primary Care Provider . . "Provider Documentation" section prepared by Radha Diaz. . VTE Core Measure Inpt VTE Proph given/why not?: Enoxaparin (Lovenox)SQ
[2017-02-09] MEDS ORDERED: TOBRAMYCIN SULF INJ 420 MG in DEXTROSE 5% 100ML 100 ML IV SCH (11:30)
[2017-02-09] MEDS ORDERED: TOBRAMYCIN IV (14:05)
--- NOTE | 2017-02-09 14:27 | Progress Note ---
Internal Med Progress Note Date of Service: February 09, 2017. Provider Documentation: SUBJECTIVE: feels fine , no fever or chills no bleeding form the left lower ext wound eager to be discharged home today -hoping to spend some time with family members before coming back to [facility] on next Monday02/14/17 for orthopedics surgery AKA of left lower ext OBJECTIVE: Vital Signs-as noted below Exam: General- no sign of distress, comfortable Lungs- clear breath sounds, no rales/wheezes bilaterally Heart- normal rate, regular rhythm; no murmur Abdomen- normal bowel sounds, non distended, soft, nontender Extremities- left lower leg with mild pedal edema dressing present, no bleeding or drainage noted , left knee mild swelling, non tender , no overlying erythema noted , limited movement /extension of left knee due to pain and discomfort right leg essentially normal Neuro- alert , awake , oriented X3 , no focal neurological deficit Lab data as noted below. ASSESSMENT & PLAN: 67 year old female with history of Severe PAD, Lymphosarcoma, HTN, Dyslipidemia presented with non healing left lower leg wound. NON HEALING WOUND LEFT LOWER LEG/CELLULITIS PERIPHERAL VASCULAR DISEASE WITH SEVERE SFA DISEASE S/P ATHERECTOMY AND DIRECTOR OF PHYSIOTHERAPY SERVICES 01/24/17 - S/P Successful Jet stream Atherectomy and DIRECTOR OF PHYSIOTHERAPY SERVICES of left SFA with drug-eluting balloon (Lutonix) on 01/24/17 - developed complication post procedure -profuse bleeding on left lower ext on 01/30/17 Plavix kept on hold, ASA continued as per Cardiology - severe chronic left lower extremity ulceration in the setting of PAD and history of polymicrobial infection of the wound wound culture growing Pseudomonas- resistant to quinolones. pt is currently on PO Bactrim and IV Zosyn. appreciate input and help for ID -Abx is transition to IV Tobramycin for once daily dosing as an outpatient. -pt started on 4 mg /kg /day -420 mg IV daily , ist dose given today @11: 30 am , random level will be drawn at approx 8 hrs later at 19: 30 -Patient is very anxious to go home, will be discharged home random level is drawn this evening. -pt is arranged for out pt IV Tobramycin daily infusion at [facility] She will then need a dose adjustment for tomorrow's dose pending level. -ID team -Gwen Serna PA-C will contract [facility] tomorrow for Tobramycin dose after lab reviewed in AM -pt continue on PO Bactrim and IV Tobramycin until her AKA next week on Monday02/14/17 .-repeat Tobramycin level , Basic metabolic panel level ordered on Monday , lab result will be faxed to ID office for Kristi Hills PA-C ( Fax no # [phone]) home health vising nurse arranged through [facility] for daily dressing change and Lab draw given extensive wound and non healing of ulcer orthopedics recommend AKA of left lower ext , pt is in agreement scheduled to have surgical procedure next week on Monday02/14/17 at [facility] ACUTE BLOOD LOSS ANEMIA : due to surgery /post op state Hg dropped to 7.7, s/p total 3 units of PRBC transfusion ( 2 units on 01/27/17 ; 1 units on 01/31/17 ) Hg improved to 9, and remains stable PAD Presented with rest pain Arterial Doppler:no sonographic evidence of high-grade stenosis or focal vessel cut off - was placed on heparin drip - Consulted Vascular surgery S/P Successful Jetstream Atherectomy and DIRECTOR OF PHYSIOTHERAPY SERVICES of left SFA with drug-eluting balloon (Lutonix) on 01/24/17 - Continue Aspirin and Plavix for 1 month recommended Plavix on hold secondary to wound side bleeding on Aspirin HTN Stable continue Coreg BID DEPRESSION Stable Continue home meds H/O LYMPHOSARCOMA stable DVT PX Heparin held due to profuse bleeding 01/30/17 requiring pRBC transfusion ambulation encouraged, which she is doing SCDs avoided as patient has PAD CODE STATUS: FULL CODE DISPOSITION pt is discharged home with home Health through [facility] continued daily IV antibiotic Tobramycin at [facility] pt is to return to [facility] on Monday02/14/17 for Above knee amputation of left lower ext by Dr Renner Vital Signs: Date Time Temp Pulse Resp B/P Pulse Ox O2 Delivery O2 Flow Rate FiO2 02/09/17 08:01 Room Air 02/09/17 07:26 36.5 69 16 102/57 94 Room Air 02/08/17 23:45 Room Air 02/08/17 23:30 37.4 81 18 115/57 94 Room Air 02/08/17 16:00 Room Air 5/17/17 15:03 37.0 72 16 108/56 95 Room Air
--- NOTE | 2017-02-09 14:49 | Discharge Summary ---
Discharge Summary Date of Service February 09, 2017. Discharge Summary Admission Date: January 23, 2017 at 23:59 Discharge Date: February 09, 2017 Discharge Disposition: Home with services Principal Diagnosis: LEFT LOWER EXTREMITY CELLULITIS/PERIPHERAL VASCULAR DISEASE Procedures: Procedure(s) Performed ON Jan [address] Leal - Bilateral lower extremity angiogram. - STEAM PLANT CONTROL ROOM OPERATOR left SFA - Jetstream Atherectomy left SFA - STEAM PLANT CONTROL ROOM OPERATOR with drug-coated (Lutonix) balloon. - Manual closure Right BAR WAITER/WAITRESS BILATERAL LOWER EXT USG : negative for DVT XRAY OF LEFT KNEE; IMPRESSION: Depressed lateral tibial plateau fracture. Osteopenia. Small joint effusion. XRAY LEFT FEMUR : IMPRESSION: Nonunion of an internally fixated intertrochanteric left hip fracture. Abnormal trabecular pattern with cortical thickening and sclerosis involving the proximal femur. Consultations: INFECTIOUS DISEASE ORTHOPEDICS VASCULAR SURGERY Medication Reconciliation New Medications: [Tobramycin] () 420 MG IV DAILY for 4 Days Sulfamethoxazole-Trimethoprim (Smz-Tmp Ds) 1 Tab Tab 1 TAB PO Q12 for 10 Days, #20 TAB Continued Medications: Alprazolam (Xanax) 0.5 Mg Tab 0.5 MG PO TID PRN for ANXIETY, #60 TAB (This prescription has been renewed) Amitriptyline Hcl (Elavil) 25 Mg Tab 3 TAB PO HS for 30 Days, #30 TAB 5 Refills Aspirin (Aspirin Ec) 81 Mg Tab 81 MG PO QAM Atorvastatin (Lipitor) 20 Mg Tab 20 MG PO QPM, TAB Calcium Carbonate (Calcium 600) 600 Mg Tab 600 MG PO DAILY Carvedilol (Coreg) 6.25 Mg Tab 1 TAB PO BID for 90 Days, #180 TAB 1 Refill Citalopram Hydrobromide (Citalopram Hydrobromide) 20 Mg Tab 20 MG PO DAILY Ferrous Sulfate (Ferrous Sulfate) 325 Mg Tab 325 MG PO BID Fish Oil (Jarrell-3) 1 Ea Cap 4 CAP PO DAILY, CAP Lactobacillus Acidophilus (Lactinex) Tab 2 TAB PO BID, TAB Oxycodone Hcl (Oxycontin) 60 Mg Tab 60 MG PO Q12, #60 TAB (This prescription has been renewed) Oxycodone Ir (Roxicodone Ir) 5 Mg Tab 5 MG PO Q4H PRN for Pain, #60 TAB (This prescription has been renewed) Trazodone Hcl (Trazodone) 50 Mg Tab 50 MG PO HS, TAB Discontinued Medications: Amoxicillin & Pot Clavulanate (Augmentin 875-125 mg) Unknown Strength Tab 1 TAB PO BID, #14 TAB Sulfa/Trimethoprim (Bactrim Ds 800MG/160MG) Tab 1 TAB PO BID, #6 TAB Referrals At Discharge Follow up Referrals: Orthopedics Referral - 02/14/17 with Bolivar Red M.D. Admission Information HPI (per Admitting provider): Patient is a 66 year old female with PMHx of PAD, HTN, HLD, and nonhealing surgical wound and skin graft site of left leg presents with history of worsening left leg pain and non healing wound. Patient had a complicated course following a tendon transfer for dropped foot in September 2015 and since then had nonhealing wound with osteomyelitis and has H/O MRSA as well. She had multiple admissions for similar complaints. She states she has been on Oral antibiotics ( Augmentin and Bactrim) since 2 months and also has been following with Dr. Timmons. She complains of worsening leg pain even at rest and reports the left leg wound is draining and increased left leg erythema and more swollen. " I leg looks like raw meat". Her home health nurse recommended her to go to hospital today. She denies any fevers, chills, chest pain, SOB, nausea, vomiting, diarrhea, dysuria, calf pain. Physical Exam (per Admitting): General Appearance: WD/WN, no apparent distress Head: normocephalic, atraumatic Eyes: normal inspection, PERRL, EOMI, sclerae normal ENT: normal ENT inspection, hearing grossly normal Neck: supple, trachea midline Respiratory/Chest: chest non-tender, lungs clear, normal breath sounds, no respiratory distress, no accessory muscle use Cardiovascular: regular rate, rhythm, no murmur, + pertinent finding (Left leg edema) Abdomen/GI: normal bowel sounds, non tender, soft Back: normal inspection Extremities/Musculoskelatal: no calf tenderness, + swelling, + pertinent finding (Left leg erythematous, swollen. Large open wound with bandage) Neurologic/Psych: pool coordinator II-XII nml as tested, no motor/sensory deficits, alert , normal mood/affect, oriented x 3 Skin: normal color, warm/dry Hospital Course 67 year old female with history of Severe PAD, Lymphosarcoma, HTN, Dyslipidemia presented with non healing left lower leg wound. NON HEALING WOUND LEFT LOWER LEG/CELLULITIS PERIPHERAL VASCULAR DISEASE WITH SEVERE SFA DISEASE S/P ATHERECTOMY AND STEAM PLANT CONTROL ROOM OPERATOR 01/24/17 - S/P Successful Jet stream Atherectomy and STEAM PLANT CONTROL ROOM OPERATOR of left SFA with drug-eluting balloon (Lutonix) on 01/24/17 - developed complication post procedure -profuse bleeding on left lower ext on 01/30/17 Plavix kept on hold, ASA continued as per Cardiology - severe chronic left lower extremity ulceration in the setting of PAD and history of polymicrobial infection of the wound wound culture growing Pseudomonas- resistant to quinolones. pt is currently on PO Bactrim and IV Zosyn. appreciate input and help for ID -Abx is transition to IV Tobramycin for once daily dosing as an outpatient. -pt started on 4 mg /kg /day -420 mg IV daily , ist dose given today @11: 30 am , random level will be drawn at approx 8 hrs later at 19: 30 -Patient is very anxious to go home, will be discharged home random level is drawn this evening. -pt is arranged for out pt IV Tobramycin daily infusion at [facility] She will then need a dose adjustment for tomorrow's dose pending level. -ID team -Gwen Serna PA-C will contract [facility] tomorrow for Tobramycin dose after lab reviewed in AM -pt continue on PO Bactrim and IV Tobramycin until her AKA next week on Monday02/14/17 .-repeat Tobramycin level , Basic metabolic panel level ordered on Monday , lab result will be faxed to ID office for Kristi Hills PA-C ( Fax no # [phone]) home health vising nurse arranged through [facility] for daily dressing change and Lab draw Xray of left knee shows : depressed tibial plateau fracture -chronic given extensive wound and non healing of ulcer orthopedics recommend AKA of left lower ext , pt is in agreement scheduled to have surgical procedure next week on Monday02/14/17 at [facility] ACUTE BLOOD LOSS ANEMIA : due to surgery /post op state Hg dropped to 7.7, s/p total 3 units of PRBC transfusion ( 2 units on 01/27/17 ; 1 units on 01/31/17 ) Hg improved to 9, and remains stable PAD Presented with rest pain Arterial Doppler:no sonographic evidence of high-grade stenosis or focal vessel cut off - was placed on heparin drip - Consulted Vascular surgery S/P Successful Jetstream Atherectomy and STEAM PLANT CONTROL ROOM OPERATOR of left SFA with drug-eluting balloon (Lutonix) on 01/24/17 - Continue Aspirin and Plavix for 1 month recommended Plavix on hold secondary to wound side bleeding on Aspirin HTN Stable continue Coreg BID DEPRESSION Stable Continue home meds H/O LYMPHOSARCOMA stable DVT PX Heparin held due to profuse bleeding 01/30/17 requiring pRBC transfusion ambulation encouraged, which she is doing SCDs avoided as patient has PAD CODE STATUS: FULL CODE DISPOSITION pt is discharged home with home Health through [facility] continued daily IV antibiotic Tobramycin at [facility] pt is to return to [facility] on Monday02/14/17 for Above knee amputation of left lower ext by Dr Red Total time spent on discharge = 55 mins This includes examination of the patient, discharge planning, medication reconciliation, and communication with other providers. Discharge Instructions Discharge Instructions Date of Service February 09, 2017. Admission Reason for Admission: Leg Pain, Left Discharge Discharge Diagnosis / Problem: LEFT LOWER EXTREMITY CELLULITIS Discharge Goals Goal(s): Decrease discomfort, Diagnostic testing, Therapeutic intervention Activity Recommendations Activity Limitations: resume your previous activity . Instructions / Follow-Up Instructions / Follow-Up HOSPITAL FOLLOW UP DR JEFFERY OFFICE WILL CALL WITH APPOINTMENT LAB WORK: TOBRAMYCIN LEVEL -TO BE DRAWN PRIOR TO NEXT DOSE ON Monday02/13/17 BASIC METABOLIC PANEL ON Monday02/13/17 YOU ARE SCHEDULED TO HAVE YOUR NEXT SURGERY -ABOVE KNEE AMPUTATION OF LEFT LEG ON Monday02/14/17 AT [facility] BY DR RED PLEASE CALL ORTHOPEDICS SERVICE ON Monday02/13/17 NOTHING BY MOUTH AFTER MIDNIGHT ON Monday02/13/17 DO NOT TAKE ASPIRIN ON MONDAY Current Hospital Diet Patient's current hospital diet: Regular Diet Discharge Diet Recommended Diet: Regular Diet Procedures Procedures Performed: Bilateral Lower Extremity Angiogram Percutaneous Transluminal Angioplasty Left Superficial Femoral Artery Atherectomy of Left Superficial Femoral Artery Moderate Sedation [id number] Pending Studies Studies pending at discharge: yes List of pending studies: LAB WORK: TOBRAMYCIN LEVEL -TO BE DRAWN PRIOR TO NEXT DOSE ON Monday02/13/17 BASIC METABOLIC PANEL ON Monday02/13/17 Medical Emergencies . Who to Call and When: Medical Emergencies: If at any time you feel your situation is an emergency, please call 911 immediately. . Non-Emergent Contact Non-Emergency issues call your: Primary Care Provider . . "Provider Documentation" section prepared by Radha Diaz. . VTE Core Measure Inpt VTE Proph given/why not?: Enoxaparin (Lovenox)SQ Additional Copies To Rico Jeffery D.O. Sherbondy, Paul S., M.D.
--- NOTE | 2017-02-09 14:51 | Pharmacy Progress Note ---
Pharmacy Abx Initial Consult Date of Service February 09, 2017. Pharmacy Dosing Scope Date of Consult: 01/24/17 Consultation requested by: Dr. Martínez Pharmacy is consulted to stop Zosyn and transition to Tobramycin IV dosing therapy, order appropriate labs and adjust drug dose/frequency. Subjective The patient is a 67 year old female admitted on January 23, 2017 at 23:59. Objective Height (Feet): 5 Height (Inches): 4.00 Weight (Kilograms): 67.400 Vital Signs (Past 12Hrs) Vital Signs Past 12 Hours Date Time Temp Pulse Resp B/P Pulse Ox O2 Delivery O2 Flow Rate FiO2 02/09/17 08:01 Room Air 02/09/17 07:26 36.5 69 16 102/57 94 Room Air Micro Results Date/Time Source Procedure Growth Status 01/24/17 00:34 Blood Blood Culture - Final NO GROWTH Complete 01/24/17 00:30 Blood Blood Culture - Final NO GROWTH Complete 02/01/17 11:30 Drainage-Deep Leg Lower Left Gram Stain - Final Complete 02/01/17 11:30 Wound Culture - Final Pseudomonas Aeruginosa Complete 01/24/17 01:35 Ulcer Leg Lower Left Gram Stain - Final Complete 01/24/17 01:35 Wound Culture - Final Pseudomonas Aeruginosa Complete Risk Factors for Resistance * Current hospitalization > 5 days * History of infection with a multidrug-resistant organism: MRSA * Antimicrobial use within the last 90 days: Zosyn 01/24/17-02/08/17 Assessment & Plan Assessment 67 year old female with recurrent, severe cellulitis with Pseudomonas as the causative organism. Plan Transition to Tobramycin for treatment of cellulitis for ease of outpatient dosing Tobramycin: * Patient meets criteria for extended-interval aminoglycoside dosing per the [place] nomogram * Dose: 420 mg (7 mg/kg) IV every 24 hours * Dosage based on adjusted body weight for patients weighing > 120% of ideal body weight * Random level ordered for 6-14 hours after the start of the infusion to ensure dosing interval is appropriate. Pharmacy will continue to follow and will adjust dose/frequency as necessary. Thank you.
[2017-02-09 15:46] VITALS: BP 124/64; PULSE 82; TEMP 36.4; O2SAT 94
[2017-02-09 20:12] VITALS: BP 124/64; PULSE 82; TEMP 36.4; O2SAT 94
[2017-02-10] MEDS ORDERED: TOBRAMYCIN SULF IV SCH (09:00)
[2017-02-10] MEDS ORDERED: DEXTROSE 5% IV SCH (09:00)
[2017-02-13] MEDS ORDERED: zinc (18:34)
[2017-02-13] MEDS ORDERED: MULT-506 PO (18:34)
[2017-06-12] MEDS ORDERED: OXYC-739 PO (17:30)
== END 2017-02-09 20:53 | disposition home health service (06) | DRG 270 ==
LOC: ENRESERVDT → ENRESERVTM → C.EDB 18:51 → C.MSW 23:59 → C.2T 01-24 17:59 → EDBEDREQ 01-28 14:44 → C.MSN 01-28 16:05
PROVIDERS: ADMIT Internal Medicine; ATTEND Hospitalist
PROC: 047L341 Dilation of Left Femoral Artery with Drug-eluting Intraluminal Device, using Drug-Coated Balloon, Percutaneous Approach (ICD-10-PCS; principal; 2017-01-24 12:30)
PROC: 04CL3ZZ Extirpation of Matter from Left Femoral Artery, Percutaneous Approach (ICD-10-PCS; principal; 2017-01-24 12:30)
DX: I77.1 Stricture of artery (principal); L89.624 Pressure ulcer of left heel, stage 4; L03.116 Cellulitis of left lower limb; D62 Acute posthemorrhagic anemia; I73.9 Peripheral vascular disease, unspecified; D63.8 Anemia in other chronic diseases classified elsewhere; I10 Essential (primary) hypertension; E78.5 Hyperlipidemia, unspecified; F32.9 Major depressive disorder, single episode, unspecified; B96.5 Pseudomonas (aeruginosa) (mallei) (pseudomallei) as the cause of diseases classified elsewhere; Z79.2 Long term (current) use of antibiotics; Z79.82 Long term (current) use of aspirin; Z79.899 Other long term (current) drug therapy; Z86.14 Personal history of Methicillin resistant Staphylococcus aureus infection; Z92.3 Personal history of irradiation; Z98.890 Other specified postprocedural states

== ENCOUNTER 2017-02-14 10:09 | Inpatient (IN) | payer OTHER ==
--- NOTE | 2017-02-09 13:58 | HISTORY & PHYSICAL EXAMINATION ---
DATE OF ADMISSION: 02/14/2017 CHIEF COMPLAINT: Left leg wound. HISTORY OF PRESENT ILLNESS: Eda is a 67-year-old female patient with a long complicated history involving her left lower extremity. She is dealing with a nonhealing surgical wound and skin graft site on the posterior aspect of her left leg, ankle and foot. These complications ultimately arose in the setting of PAD. 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 Ultimately, developed a femoral fracture in 2011, treated with an IM adalid by Dr. Wynne. Developed a nonunion and revision performed in 2012. She developed a foot drop, which required an Achilles lengthening and a tendon transfer in September of 2015, performed by Dr. Wynne. Eda then subsequently developed skin breakdown near the surgical sites. Progression of skin breakdown has progressed over the past year and a half. She has had 2 vascular interventions performed, most recent being 2 weeks ago to improve blood flow. Dr. Anderson performed a skin graft and Dr. Gutierrez and Dr. Leal performed the initial circulation surgeries to improve blood flow. The patient has had multiple admissions previously for similar complaints. She has been on oral antibiotics, Augmentin, and Bactrim over the past 2 months, being followed by Dr. Timmons. PAST MEDICAL HISTORY: 1. Anxiety. 2. Hypertension. 3. Peripheral artery disease. 4. History of MRSA, resolved. 5. Depression. 6. History of closed femur fracture. 7. Patent foramen ovale. 8. History of liposarcoma, left lower extremity, proximal. PAST SURGICAL HISTORY: Reveals, 1. . 2. Left ankle surgery, Achilles tendon lengthening and tendon transfer. 3. Left hip surgery x2. 4. Lumbar spinal fusion. 5. Tonsillectomy and adenoidectomy. FAMILY HISTORY: Positive for DVT, pulmonary embolism and coronary artery disease. SOCIAL HISTORY: The patient is a former smoker. Denies any alcohol or illegal drug use. She is and lives with her family. She is retired. She requires the use of a walker for ambulation purposes. ALLERGIES: INCLUDE VANCOMYCIN AND CETIRIZINE. HOME MEDICATIONS: 1. Amitriptyline 3 tabs p.o. at bedtime. 2. Augmentin 875/125 b.i.d. 3. Aspirin 81 mg daily. 4. Atorvastatin 20 mg at bedtime. 5. Calcium 600 daily. 6. Coreg 1 tablet b.i.d. 7. Citalopram 20 mg tab daily. 8. Ferrous sulfate 325 mg tab b.i.d. 9. Fish oil 4 caps daily. 10. Lactobacillus acidophilus 2 tabs b.i.d. 11. OxyContin 60 mg p.o. q. 12 hours. 12. Bactrim-DS 800/160 b.i.d. 13. Trazodone 50 mg tab at bedtime. 14. Xanax 0.5 mg tabs 3 times daily as needed for anxiety. 15. Roxicodone 5 mg p.o. q. 4 hours p.r.n. pain. REVIEW OF SYSTEMS: The patient currently denies any headache, chest pain, shortness of breath, fevers, chills or night sweats. Overall, did not have some neurologic sensation below the knee. Therefore, denies any current calf pain. She does admit to obviously having numbness again below the knee. Denies any current nausea, vomiting or diarrhea. PHYSICAL EXAMINATION: GENERAL: The patient is alert and oriented x3 female in no acute distress, pleasant, appears her currently stated age, in no acute distress. HEENT: Head is atraumatic and normocephalic. Eyes are equal and round. She is wearing prescription glasses. Oral and nasal cavities are patent and without exudates or erythema. The patient has an upper dental plate and we will remove accordingly. Trachea appears midline. CARDIAC: Regular rate and rhythm. S1 greater than S2. No murmurs, rubs or gallops appreciated. RESPIRATORY: Lungs are clear to auscultation bilaterally in all lung thorpe. No rales, rhonchi or wheezing. GASTROINTESTINAL: Abdomen is soft, nontender, and nondistended. Normoactive bowel sounds in all 4 quadrants. EXTREMITIES: Examination of the left lower extremity reveals no sensation of the calf or foot. She has no ability to move her toes or ankle. Pedal pulses are not palpable. Her foot is warm with capillary refill less than 2 seconds. There is a large area of full thickness skin breakdown including down to the level of the cutaneous into the Achilles tendon and posterior soft tissue musculature. This extends from the plantar aspect of the foot up to just above the mid portion of the posterior calf. It extends almost to midline both medially and laterally. She did not have any anterior skin breakdown. She cannot move her toes or ankle. She cannot do a straight leg raise. Does not have the ability to extend her left leg. Her knee flexor strength is graded at 4/5. She can flex, extend, abduct and adduct her hip with strength, which is 4-5/5. She has full knee extension and flexion to about 120 degrees, but cannot lift her leg off the bed nor can she extend her left knee. The left knee is not swollen. She has at least 1 positive posterior drawer and has a 1+ varus and valgus laxity of the knee in mid position. The knee is stable in full extension. Nahun is intact. There is no knee effusion or tenderness. The skin around the knee appears to be normal. Several scars are noted of the left upper leg secondary to her prior liposarcoma and subsequent surgical intervention. There is marked induration of proximal half of the thigh and hip soft tissues consistent with radiation fibrosis. There are no open wounds present in this area of the lower extremity. Her hips are to be easily flexed at 90 degrees. She has minimal internal and external rotation of the left hip. She does have some mild palpably enlarged left inguinal lymph nodes. IMPRESSION: Large posterior soft tissue wound involving the left lower leg and foot area with exposed bone and tendon with necrosis. PLAN: Eda will undergo a through knee amputation, left lower extremity on 02/14/[address] Bolivar Renner from [facility] at the [facility]. During the patient's most recent admission to [facility], Dr. Sutton from the wound clinic, Dr. Timmons from infectious disease, Dr. Gloria and Dr. Diaz along with Dr. Renner have all been involved with Eda's care. During her recent admission, her wound did grow pseudomonas that was noted to be resistant to quinolones. Upon recent discharge from [facility], the patient was transitioned regarding antibiotics, which at that time were p.o. Bactrim and IV Zosyn to outpatient IV tobramycin with p.o. Bactrim. Eda reports that her postoperative pain is best controlled with OxyContin, which she currently utilizes for pain control. The patient has signed her consent form. Relevant laboratory data has been obtained at the [facility] and will be relevant for her upcoming schedule surgery including EKG appropriate and hematologic lab work. The patient will be admitted postoperatively for continued observation and antibiotic application. We will require continued input from infectious disease and medicine. She will require a followup evaluation with Dr. Renner at [facility] for postoperative evaluation of the wound and ultimate staple and/or suture removal. The patient will be n.p.o. prior to surgery except a sip of water with meds with appropriate medications. At this point, the patient has no other questions or concerns, pleased with today's care. Please forward questions to [facility] at [phone].
[2017-02-13 18:09] VITALS: BMI 22.0; BMI 25.0
[~2017-02-14] VITALS: Ht 162.6 cm; Wt 67.2 kg
[~2017-02-14 10:09] MED LIST changes: +DAPTOmycin IV 275 MG in SODIUM CHLORIDE 0.9% 50ML 50 ML IV SCH; +LACTATED RINGER'S 1000ML 1,000 ML IV SCH; +LCTX PO; +MULT-506 PO; +PATIENT'S HEIGHT AND/OR WEIGHT NEEDED SCH; +SULF-183 PO; +TOBRAMYCIN IV; +TOBRAMYCIN SULF INJ 420 MG in DEXTROSE 5% 100ML 100 ML IV SCH; +zinc
[2017-02-14 10:48] VITALS: BP 160/77; PULSE 83; TEMP 36.7; O2SAT 98; Ht 162.6 cm; Wt 67.2 kg
[2017-02-14] MEDS ORDERED: BUPIVACAINE/EPINEPHRINE 0.25% 1:200,000 30 ML VIAL ONE (11:19)
[2017-02-14] MEDS ORDERED: ROPIVACAINE 0.5% 5 MG/ML 30 ML VIAL ONE (11:19)
[2017-02-14] MEDS ORDERED: DEXAMETHASONE SOD INJ 4 MG/ML VIAL ONE (12:33)
[2017-02-14] MEDS ORDERED: ONDANSETRON INJ 2 MG/ML 2 ML VIAL ONE (12:33)
[2017-02-14] MEDS ORDERED: LIDOCAINE HCL 2% 2 ML VIAL (20MG/ML) ONE (12:33)
[2017-02-14] MEDS ORDERED: PROPOFOL IV EMULSION 10 MG/ML 20 ML VIAL IV ONE (12:33)
[2017-02-14] MEDS ORDERED: FENTANYL CITRATE INJ 50 MCG/1 ML 2 ML VIAL ONE (12:34)
[2017-02-14] MEDS ORDERED: MIDAZOLAM HCL 1 MG/ML 2ML VIAL ONE (12:34)
[2017-02-14] MEDS ORDERED: HYDROmorphone INJ 1 MG/ML SYR IV PRN (13:00)
[2017-02-14] MEDS ORDERED: LABETALOL HCL IV 5 MG/ML 20ML IV PRN (13:00)
[2017-02-14] MEDS ORDERED: ATROPINE SULFATE 0.1 MG/ML 5ML SYR IV PRN (13:00)
[2017-02-14] MEDS ORDERED: MoRPHine SULFATE 10 MG/ML CARP/VIAL IV PRN (13:00)
[2017-02-14] MEDS ORDERED: ONDANSETRON INJ 2 MG/ML 2 ML VIAL IV PRN ×2 (13:00→16:45)
[2017-02-14] MEDS ORDERED: FLUMAZENIL 0.1 MG/1 ML 10 ML VIAL IV PRN (13:00)
[2017-02-14] MEDS ORDERED: MEPERIDINE HCL 25 MG/ML CARP IV PRN (13:00)
[2017-02-14] MEDS ORDERED: EpHEDrine SULFATE INJ 50 MG/ML AMP IV PRN (13:00)
[2017-02-14] MEDS ORDERED: PHENYLEPHRINE 100MCG/ML 5ML SYR IV PRN (13:00)
[2017-02-14] MEDS ORDERED: NALOXONE HCL 0.4 MG/1 ML VIAL/CARP IV PRN (13:00)
--- NOTE | 2017-02-14 13:34 | History & Physical Bridge Note ---
H&P Re-Evaluation Bridge Note: I have examined the patient, reviewed the History & Physical and in the interval since the performance of the History & Physical I have noted the following changes of clinical significance: No changes noted
[2017-02-14] MEDS ORDERED: KETAMINE HCL INJ 50 MG/ML 10 ML VIAL ONE (14:48)
[2017-02-14] MEDS ORDERED: POVIDONE-IODINE OP SOLN 30 ML BTL ONE (14:53)
[2017-02-14] MEDS ORDERED: PHENYLEPHRINE HCL INJ 10 MG/ML VIAL ONE (15:52)
--- NOTE | 2017-02-14 16:42 | [facility] Post Operative Brief Note ---
Immediate Operative Summary Operative Date February 14, 2017. Pre-Operative Diagnosis Large posterior soft tissue wound involving the left lower leg and foot area with exposed bone and tendon with necrosis. Post-Operative Diagnosis Large posterior soft tissue wound involving the left lower leg and foot area with exposed bone and tendon with necrosis. Procedure(s) Performed Left through the knee lower leg amputation Surgeon Dr. Renner Taxi Proprietor Surgeon(s) Mariama Henderson PA-C Estimated Blood Loss 450ml Findings nonhealing wound left leg Specimens A: left lower leg Drains 0 Anesthesia general/block Complication(s) None Disposition Recovery Room / PACU
[2017-02-14] MEDS ORDERED: MAGNESIUM HYDROXIDE SUSP 30 ML UDC PO PRN (16:45)
[2017-02-14] MEDS ORDERED: BISACODYL 10 MG SUPP PR PRN (16:45)
[2017-02-14] MEDS ORDERED: MoRPHine SULFATE 2 MG/ML CARP IV PRN (16:45)
[2017-02-14] MEDS ORDERED: SOD PHOSPHATE/SOD BIPHOSPHATE ENEMA 132 ML BTL PR PRN (16:45)
[2017-02-14] MEDS ORDERED: ACETAMINOPHEN 325 MG TAB PO PRN (16:45)
--- NOTE | 2017-02-14 16:51 | [facility] Operative Report ---
Operative Report Operative Date February 14, 2017. Pre-Operative Diagnosis Large posterior soft tissue wound involving the left lower leg and foot area with exposed bone and tendon with necrosis. Post-Operative Diagnosis Same as pre-op Procedure(s) Performed Left lower extremity through knee amputation Surgeon Dr. Bolivar Renner Tunnel Miner Surgeon(s) Mariama Henderson PA-C Estimated Blood Loss 450ml Findings left lower extremity nonhealing wound Specimens A: left lower leg Drains 0 Anesthesia general/block Complication(s) None Disposition Recovery Room / PACU (stable) Indications Patient was seen as an inpatient last week for nonhealing wound of her left leg. She is s/p sarcoma treated with excision and radiation and secondary to that has developed neuropathy and PAD. She has been seen [facility] with no improvements of her wound. She is s/p multiple surgeries of her left lower extremity with failure to heal. She has failed to improve with all conservative and invasive procedures. A through knee amputation was discussed and she agreed to proceed. Risks/complications discussed, informed consent obtained. Description of Procedure Patient was taken to the operating room, given IV tobramycin, IV daptomycin per ID recommendations preoperatively prior to incision. She was placed under general anesthesia. Time out performed, she was prepped and draped in routine sterile fashion. I was present the entire case, please see Dr. Renner's operative report for further detail. Patient was awakened and taken to the recovery room in stable condition. I attest to the content of the Intraoperative Record and any orders documented therein. Any exceptions are noted below.
--- NOTE | 2017-02-14 17:13 | Anesthesiology Progress Note ---
Anesthesia Post Op Note Date & Time February 14, 2017 at 17:10 Vital Signs Pain Intensity: 8 Vital Signs Past 12 Hours Date Time Temp Pulse Resp B/P Pulse Ox O2 Delivery O2 Flow Rate FiO2 02/14/17 10:48 36.7 83 18 160/77 98 Room Air Notes Mental Status: alert / awake / arousable, participated in evaluation Pt Amnestic to Procedure: Yes Nausea / Vomiting: adequately controlled Pain: adequately controlled Airway Patency, RR, SpO2: stable & adequate BP & HR: stable & adequate Hydration State: stable & adequate Anesthetic Complications: no major complications apparent Anesthetic Complications: Patient c/o L eye pain after surgery and foreign body sensation in eye. She says this happened after her last surgery as well and resolved in about a day. No difficulty was noted on induction or placement of LMA by the outgoing anesthesiologist, and the eyes were taped throughout. On exam, the eye had mild increase in tear production, but no conjunctival injection, and no visible abrasion. I offered to the patient that while this may be a mild corneal abrasion, definitive diagnosis would require expert consultation and a florescein stain, and would not likely change her management. She agrees to pain control measures and emycin ointment with observation.
[2017-02-14] MEDS: ERYTHROMYCIN OP OINT 5 MG/GM 3.5 GM TUBE OPL SCH (17:43)
[2017-02-14 17:55] VITALS: BP 136/75; TEMP 37.2; O2SAT 99
[2017-02-14 18:25] VITALS: BP 144/80; PULSE 78; TEMP 37; O2SAT 98
[2017-02-14] MEDS: D5W AND 1/2NSS + 20MEQ KCL 1,000 ML IV SCH (19:34)
[2017-02-14 19:39] VITALS: BP 136/69; PULSE 88; TEMP 37.3; O2SAT 99
--- NOTE | 2017-02-14 19:50 | Medical Consult ---
Consultation Date of Consultation: February 14, 2017.~ 19:45 . Attending Physician: Bolivar Renner M.D. Reason for Consultation: medical management . History of Present Illness 67 YO female with history of hypertension, peripheral vascular disease, leg ulcers with chronic / recurrent infections, and other problems noted below. Left through the knee amputation of LLE performed today by Dr. Renner under general anesthesia + regional block. EBL was 450 ml. Doing well postoperatively. No chest pain. No cough or dyspnea. No nausea or vomiting. She has some suprapubic discomfort and feels that she needs to void, but is unable to use bedpan. Postop pain well-controlled. . 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 Status: Chronic (15) 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 Family History DVT FATHER FH: CAD (coronary artery disease) MOTHER (AR age 70) FH: pulmonary embolism SISTER Social History Smoking Status: Former Smoker Alcohol Use: none Drug Use: none Marital Status: Housing Status: lives with family Occupation Status: retired Allergies Coded Allergies: Vancomycin (Verified Adverse Reaction, Severe, WORSENING RENAL FUNCTION, ) Patient prescribed both vancomycin and pip/tazo therapy. Patient's vancomycin trough level for the 800mg IV q12h dosing came back subtherapeutic at 9.7mcg/ml. Vancomycin dose was changed to 1400mg IV q12h to provide an increase in trough and get a therapeutic level. However, trough level returned back on this newer dose as 19.9mcg/ml. Deemed dose to having caused a higher goal trough and determined that a lower dose of 1000mg IV q12h was needed to lower trough into goal range. However, patient's renal function had worsened on 08/02 from 0.46mg/dl for SCr on 08/01 to a SCr of 1.8mcg/ml. This could have been due to the vancomycin dosing or the combination of the patient being on vancomycin and pip/zosyn. At this point ID recommended to switch patient to daptomycin and continue on the piperacillin/tazobactam. Dr. Bagley was made aware of the situation. Renal function was to continue to be monitored as well as the vancomycin levels. Cetirizine (Verified Adverse Reaction, Unknown, BOWEL CRAMPS, 02/14/17) Home Medications Reported Home Medications Medications Dose Route/Sig Max Daily Dose Days Date Category Multivitamin (Multivitamins) Tab 1 Tab PO DAILY 02/13/17 Reported [zinc] 50 DAILY 02/13/17 Reported [Tobramycin] 420 Mg IV DAILY 4 02/09/17 Rx Oxycontin (Oxycodone Hcl) 60 Mg Tab 60 Mg PO Q12 02/09/17 Rx Roxicodone Ir (Oxycodone HCl) 5 Mg Tab 5 Mg PO Q4H PRN 02/09/17 Rx Xanax (Alprazolam) 0.5 Mg Tab 0.5 Mg PO TID PRN 02/09/17 Rx Smz-Tmp Ds (Sulfamethoxazole-Trimethoprim) 1 Tab Tab 1 Tab PO Q12 10 02/09/17 Rx Lactinex (Lactobacillus Acidophilus) Tab 2 Tab PO BID 01/23/17 Reported Elavil (Amitriptyline Hcl) 25 Mg Tab 3 Tab PO HS 30 10/13/16 Reported Coreg (Carvedilol) 6.25 Mg Tab 1 Tab PO BID 90 08/20/16 Reported Trazodone (Trazodone HCl) 50 Mg Tab 50 Mg PO HS 05/19/16 Reported Calcium 600 (Calcium Carbonate) 600 Mg Tab 600 Mg PO DAILY 05/19/16 Reported Citalopram Hydrobromide 20 Mg Tab 20 Mg PO DAILY 03/13/15 Reported [place]-3 (Fish Oil) 1 Ea Cap 4 Cap PO DAILY 02/25/15 Reported Aspirin Ec (Aspirin) 81 Mg Tab 81 Mg PO QAM 02/25/15 Reported Ferrous Sulfate 325 Mg Tab 325 Mg PO BID 12/27/13 Reported Lipitor (Atorvastatin) 20 Mg Tab 20 Mg PO QPM 12/27/13 Reported Current Inpatient Medications Current Inpatient Medications Medications (Trade) Dose Ordered Sig/Connor Route Start Time Stop Time Status Last Admin Dose Admin Tobramycin Sulfate/Dextrose (Nebcin Inj/D5 100ml) 110.5 ml @ 100 mls/hr PREOP IV 02/14/17 06:00 02/15/17 05:59 02/14/17 11:32 100 MLS/HR Ondansetron HCl (Zofran Inj) 4 mg ONE PRN IV 02/14/17 13:00 Labetalol HCl 5 mg 5 mg Q5M PRN IV 02/14/17 13:00 Potassium Chloride/Dextrose/ Sod Cl (D5W And 1/2nss + 20meq KCl) 1,000 ml @ 100 mls/hr Q10H IV 02/14/17 18:45 03/16/17 16:33 02/14/17 19:34 100 MLS/HR Oxycodone HCl (Roxicodone Immediate Rel Tab) 1-2 TABS FOR PAIN 1 TABLET ... Q4H PRN PO 02/14/17 16:45 02/28/17 16:44 Morphine Sulfate (MoRPHine SULFATE INJ) If PO analgesic is order... Q2H PRN IV 02/14/17 16:45 02/28/17 16:44 Acetaminophen (Tylenol Tab) 650 mg Q6H PRN PO 02/14/17 16:45 03/16/17 16:44 Magnesium Hydroxide (Milk Of Magnesia Susp) 30 ml Q6H PRN PO 02/14/17 16:45 03/16/17 16:44 Bisacodyl (Dulcolax Supp) 10 mg DAILY PRN OK 02/14/17 16:45 03/16/17 16:44 Sodium Biphosphate/ Sodium Phosphate (Fleet Enema) 132 ml DAILY PRN OK 02/14/17 16:45 03/16/17 16:44 Docusate Sodium (coLACE CAP) 100 mg BID PO 02/14/17 21:00 03/16/17 20:59 Ondansetron HCl (Zofran Inj) 4 mg Q6H PRN IV 02/14/17 16:45 03/16/17 16:44 Enoxaparin Sodium (Lovenox Inj) 30 mg Q12H SQ 02/15/17 09:00 03/15/17 08:59 Alprazolam (Xanax Tab) 0.5 mg TID PRN PO 02/14/17 16:45 03/16/17 16:44 Amitriptyline HCl (Elavil Tab) 75 mg HS PO 02/14/17 21:00 03/16/17 20:59 Aspirin (Ecotrin Tab) 81 mg QAM PO 02/15/17 09:00 03/17/17 08:59 Atorvastatin Calcium (Lipitor Tab) 20 mg QPM PO 02/14/17 21:00 03/16/17 20:59 Carvedilol (Coreg Tab) 6.25 mg BID PO 02/14/17 21:00 03/16/17 20:59 Citalopram Hydrobromide (celeXA TAB) 20 mg DAILY PO 02/15/17 09:00 03/17/17 08:59 Ferrous Sulfate (Feosol Tab) 325 mg BID PO 02/14/17 21:00 03/16/17 20:59 Lactobacillus Acidophilus (Floranex Tab) 2 tab BID PO 02/14/17 21:00 03/16/17 20:59 Multivitamins (Multivitamin Tab) 1 tab DAILY PO 02/15/17 09:00 03/17/17 08:59 Oxycodone HCl (Oxycontin Tab) 60 mg Q12 PO 02/14/17 21:00 02/28/17 20:59 Trazodone HCl (Desyrel Tab) 50 mg HS PO 02/14/17 21:00 03/16/17 20:59 Calcium Carbonate (oS-Zi 500 TAB) 1,250 mg DAILY PO 02/15/17 09:00 03/17/17 08:59 Miscellaneous Information (Order Awaiting Action) 1 ea QS N/A 02/15/17 00:00 03/17/17 00:00 Erythromycin (Erythromycin Oph Oint) 1 appln BID OPL 02/14/17 21:00 02/16/17 20:59 02/14/17 17:43 1 APPLN Review of Systems Constitutional: No fever Respiratory: No cough, No shortness of breath Cardiovascular: No chest pain Abdomen: No GI bleeding, No diarrhea, No nausea, No pain, No vomiting Genitourinary - Female: + urinary retention Physical Exam Date Time Temp Pulse Resp B/P Pulse Ox O2 Delivery O2 Flow Rate FiO2 02/14/17 19:39 37.3 88 16 136/69 99 Nasal Cannula 2.0 02/14/17 18:25 37.0 78 18 144/80 98 Nasal Cannula 2.0 98 02/14/17 18:20 99 Nasal Cannula 02/14/17 17:55 37.2 18 136/75 99 Nasal Cannula 2.0 02/14/17 17:45 79 14 143/74 99 Nasal Cannula 2 02/14/17 17:30 78 12 149/73 99 Nasal Cannula 2 02/14/17 17:15 76 13 149/73 99 Nasal Cannula 2 02/14/17 17:05 36.6 74 14 143/69 99 Nasal Cannula 2 02/14/17 16:55 73 12 150/76 100 Mask 10 02/14/17 16:45 75 21 153/70 100 Mask 10 02/14/17 16:37 37.7 79 10 160/67 100 Mask 10 02/14/17 10:48 36.7 83 18 160/77 98 Room Air General Appearance: WD/WN, no apparent distress Head: normocephalic, atraumatic Eyes: normal inspection, PERRL, EOMI, sclerae normal ENT: hearing grossly normal, + pertinent finding (edentulous, upper dentures) Neck: supple, no adenopathy, thyroid normal, no JVD, trachea midline Respiratory/Chest: lungs clear, no respiratory distress, no accessory muscle use Cardiovascular: regular rate, rhythm, no edema (RLE), no gallop, no JVD, no murmur Abdomen/GI: normal bowel sounds, non tender, soft, no organomegaly Extremities/Musculoskelatal: + pertinent finding (s/p amputation LLE @ knee with surgical dressing applied; impulse boot applied to rigth foot) 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 URINARY RETENTION Straight cath PRN. HYPERTENSION BP 136/69 postop. Continue carvedilol. Follow and titrate Rx. DYSLIPIDEMIA Continue atorvastatin. ANEMIA Chronic, probably multifactorial. Follow H/H. VTE PROPHYLAXIS Impulse boot for RLE and enoxaparin ordered postop. Thank you for this consultation. We will follow the patient with you during their hospital stay. Dr. Galo will be rounding day shift starting 02/15. You can reach a member of the [facility] Hospitalist Team 17/04 via pager @ . You can reach me via cell @ [phone]. .
[2017-02-14 20:25] VITALS: BP 130/67; PULSE 86; TEMP 37.1; O2SAT 98
--- NOTE | 2017-02-14 20:54 | OPERATIVE REPORT ---
DATE OF OPERATION: 02/14/2017 PREOPERATIVE DIAGNOSES: 1. Chronic nonhealing wound of the left lower extremity status post revascularization and prior skin graft surgery. 2. Left lower extremity vascular disease status post revascularization. 3. 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 4. 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 PROCEDURE: Through knee amputation of the left lower extremity. SURGEON: Dr. Renner. COMMERCIAL REAL ESTATE UNDERWRITER: Mariama Henderson PA-C. No resident or fellow available. ANESTHESIA: General with block. 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 She was treated with excision and radiation. She has developed some chronic changes in her soft tissue and bone secondary to that. She likely also has developed some neuropathy. She has vascular disease. She had a fracture of her left hip which was revised x1 and at this point does not look like it is healed. She underwent an Achilles tendon lengthening and tendon transfer 1-1/2 years ago and developed a chronic nonhealing wound which has been refractory to skin grafting and other alternatives for wound healing. She has a large open wound on the left leg extending from about the mid posterior calf around the posterior half of the leg. There is exposed and necrotic Achilles tendon and exposed calcaneus. She does not have any motor or sensory function in her foot. She does not have the ability to extend her knee. Due to her absence of extensor function as well as the high level of posterior soft tissue compromise a through knee amputation has been discussed and accepted. She has also had a recent fall and has a medial tibial plateau fracture. This is likely secondary to her loss of sensation. OPERATION AND FINDINGS: PROCEDURE IN DETAIL: Informed consent was obtained. The patient identified as Eda Estrada. She identified the operative site as the left knee. I marked with my initials. A preop surgical time out was performed. A preop dose of IV antibiotics was given. She was taken to the operating room, positioned supine on the operating room table, tourniquet was applied to the left thigh but not inflated as she has had recent vascular surgery. The left leg was prescrubbed and then prepped and draped in usual sterile fashion using Betadine. The leg was prepped down to the ankle. An occlusive dressing was utilized to exclude the soft tissue breakdown on the leg from the operative field. She received a preop dose of IV antibiotics. A preop surgical time out was performed. The examination showed full extension of the knee, flexion to about 95. She had a mild flexion contracture of her hip. There was significant induration of the skin around the hip. She had minimal hip rotatory movements. The hip could not be fully extended to about -10. She had the aforementioned large wound on the posterior calf, ankle and foot with exposed calcaneus and exposed necrotic Achilles tendon. DVT prophylaxis intraoperatively with foot pumps, postoperatively with early mobility and Lovenox. The incisions were marked out. The diameter of the knee was 12 cm and generous skin flaps, 1 anterior which was 14 cm, and 1 posterior which was 10 cm were marked out. The posterior skin flap was marked out from the popliteal crease and the anterior skin flap from the distal pole of the patella. The skin was sharply incised in a fish mouth type fashion. Electrocautery was utilized to achieve hemostasis throughout. There was fairly brisk bleeding throughout the leg. The subcutaneous tissues were elevated in a full thickness fashion up off of the fascia anteriorly and the patellar tendon was transected at its insertion and this was all resected proximally. The capsule was entered anteriorly to the level of the joint line and the medial and meniscofemoral ligaments were resected and the menisci were sent with the tibia. There was a marginal fracture of the medial tibial plateau which appeared to be subacute in nature and a fragment of this was excised. The saphenous neurovascular structures were identified. The vein was doubly ligated. The nerve was transected proximally and allowed to retract. On the lateral side the IT band was divided followed by the lateral collateral ligament, the biceps femoris, the peroneal nerve was identified, pulled distally and cut and allowed to retract proximally. The posterior skin was incised down to the level of the fascia. The lesser saphenous vein was not distinctly identified. The cruciate ligaments were resected from the tibia and the posterior capsule was carefully released. At that time the tibial nerve was identified, pulled distally, cut and allowed to retract proximally. The tibial vein and artery were identified. Some of their branches were also identified and singly ligated with 2-0 silk ties. The main vein and artery were triply ligated and cut at the level of the amputation. The gastrocnemius was then resected at the level of the posterior skin flap and the amputation was completed. The amputated limb was sent for specimen. The field of operation and the remaining tissue appeared to be healthy. Meticulous hemostasis was performed using electrocautery, pressure and 2-0 silk ties as necessary. Irrigation with Betadine lavage and sterile saline was then performed. I then tied the patellar tendon down to the cruciate ligaments using a modified Lundberg stitch of #1 Vicryl. The gastrocnemius was then loosely approximated to the anterior joint capsule fascia in a loose fashion with #1 Vicryl. A drain was placed within the joint and brought out medially. This was a large Hemovac drain. The skin was then sized and trimmed as necessary. Some dog ears on the medial and lateral aspects the posterior flap were excised. About 30% of the anterior skin flap was resected as there was extra skin available. A closure was then performed with 2-0 Vicryls and then 2-0 nylon sutures using simple and [id number] type stitches. The residual limb was cleaned with wet and dry sponges and a soft sterile dressing was applied consisting of Xeroform, 4 x 4's, ABD and an Rajat wrap. The patient was then awakened from anesthesia without difficulty, taken to recovery room in stable condition. The resected bone was sent for specimen. There were no complications. Counts were correct at the end of case. Blood loss was approximately 450 mL. She did have an intraoperative H\T\H which showed that she was approximately hemoglobin of 9 and she was given 1 unit of blood in the operating room. She will have medicine and ID consult postoperatively and plan to transfer her to a snf facility or acute care to rehab when her condition allows. There are some pros and cons to fitting her with the prosthesis, which will need to be weight out during her period of recovery. At the conclusion of the operation, I spoke to patient's family and informed them of my findings. I attest to the content of the Intraoperative Record and any orders documented therein. Any exceptio ns are noted below.
[2017-02-14] MEDS: FERROUS SULFATE 325 MG TAB PO SCH (21:00)
[2017-02-14] MEDS: OXYCODONE HCL 20 MG TABCR (OXYCONTIN) PO SCH (21:02)
[2017-02-14] MEDS: ALPRAZOLAM 0.5 MG TAB PO PRN (21:02)
[2017-02-14] MEDS: TRAZODONE HCL 50 MG TAB PO SCH (21:04)
[2017-02-14] MEDS: AMITRIPTYLINE HCL 25 MG TAB PO SCH (21:04)
[2017-02-14] MEDS: CARVEDILOL 6.25 MG TAB PO SCH (21:05)
[2017-02-14] MEDS: DOCUSATE SODIUM 100 MG CAP PO SCH (21:05)
[2017-02-14] MEDS: ATORVASTATIN 20 MG TAB PO SCH (21:05)
[2017-02-14] MEDS: LACTOBACILLUS ACIDOPHILUS (FLORANEX) TAB PO SCH (21:05)
[2017-02-14 23:55] VITALS: BP 144/80; PULSE 72; TEMP 36.8; O2SAT 99
[2017-02-15] VITALS (8 sets, daily range): BP systolic 91–118; BP diastolic 49–70; PULSE 67–84; TEMP 36.4–37; O2SAT 93–96
[2017-02-15] MEDS: D5W AND 1/2NSS + 20MEQ KCL 1,000 ML IV SCH ×2 (05:21→14:30)
[2017-02-15] MEDS: OXYCODONE HCL IR 5 MG TAB (IMMEDIATE RELEASE) PO PRN ×3 (06:35→16:02)
[2017-02-15 07:00] LABS: HEMATOCRIT 25.1 % (37-47); MEAN CELL VOLUME 87.5 fL (80-100); MEAN CORPUSCULAR HEMOGLOBIN 27.2 pg (25-34); MEAN CORPUSCULAR HGB CONC 31.1 g/dl (32-36); MEAN PLATELET VOLUME 8.8 fL (7.4-10.4); PLATELET COUNT 337 K/uL (130-400); RED BLOOD COUNT 2.87 M/uL (4.2-5.4); WHITE BLOOD COUNT 7.07 K/uL (4.8-10.8)
[2017-02-15 07:43] LABS: BUN/CREATININE RATIO 20.6 (10-20); CALCIUM 7.6 mg/dl (8.5-10.1); CREATININE 0.59 mg/dl (0.60-1.20); POTASSIUM 4.3 mmol/L (3.5-5.1)
--- NOTE | 2017-02-15 07:54 | Anesthesiology Progress Note ---
Anesthesia Post Op Note Date & Time February 15, 2017 at 07:53 Vital Signs Pain Intensity: 5.0 Vital Signs Past 12 Hours Date Time Temp Pulse Resp B/P Pulse Ox O2 Delivery O2 Flow Rate FiO2 02/15/17 03:09 36.5 69 16 91/49 94 Room Air 02/15/17 02:00 95 Room Air 02/14/17 23:55 36.8 72 16 144/80 99 Nasal Cannula 2.0 02/14/17 23:53 Nasal Cannula 2.0 02/14/17 20:25 37.1 86 18 130/67 98 Nasal Cannula Notes Mental Status: alert / awake / arousable, participated in evaluation Pt Amnestic to Procedure: Yes Nausea / Vomiting: adequately controlled Pain: adequately controlled Airway Patency, RR, SpO2: stable & adequate BP & HR: stable & adequate Hydration State: stable & adequate Anesthetic Complications: no major complications apparent
--- NOTE | 2017-02-15 08:29 | Clinical Documentation Query ---
ZHEN Delgado : CLINICAL DOCUMENTATION QUERIES QUERY 1 OF 2 Patient is a 67-year-old female admitted to undergo left through the knee lower leg amputation in the setting of large posterior soft tissue wound involving the left lower leg and foot area with exposed bone and tendon with necrosis status post prior revascularization. To avoid uncertainty at time of discharge, please explicitly clarify the etiology of the wound so as to aid in assignment of the correct principal and procedural diagnosis and thus DRG. In your clinical opinion is this patient being managed for: ( ) Chronic nonhealing wound of the left lower extremity status post revascularization and prior skin graft surgery, a complication of care ( ) Chronic nonhealing wound of the left lower extremity status post revascularization and prior skin graft surgery in the setting of PAD ( ) Other explanation of clinical findings (Please Explain) ( ) Unable to determine (Please Define) ( ) Need to Discuss ( ) Not Agree The medical record reflects the following clinical findings, treatment, and risk factors. Clinical Indicators: As above Treatment:left through the knee lower leg amputation Risk Factors: PAD, prior left lower extremity procedures, former smoking history QUERY 2 OF 2 EMR documentation from wound clinic notes from 02/06/17 include "stage IV pressure ulcer of the left heel". As appropriate, please include this documentation in daily progress notes and discharge summary as this represents a major co-morbid condition and significantly impacts DRG assignment. In your clinical opinion is this patient being managed for: ( ) Pressure ulcer of left heel, stage 4, present on admission ( ) Other explanation of clinical findings (Please Explain) ( ) Unable to determine (Please Define) ( ) Need to Discuss ( ) Not Agree The medical record reflects the following clinical findings, treatment, and risk factors. Please clarify and document your clinical opinion in the progress notes and discharge summary. Terms such as "probable", "suspected", "likely", "questionable", "possible", or "still to be ruled out" are acceptable. IF IN AGREEMENT, YOU MUST DOCUMENT ABOVE DIAGNOSTIC STATEMENT IN DAILY PROGRESS NOTES AND DISCHARGE SUMMARY. This document is not part of the patient's record. Thank You, Srinivasa Sterling, ULISES [phone]
--- NOTE | 2017-02-15 08:32 | Progress Note ---
Orthopedic SOAP Note Subjective Date of Service: February 15, 2017. Post OP Day: 1 Reports: feeling well, pain controlled w PO medications (reports pain 2/10, tolerable and pleased with her care and results thus far), Denies: SOB, calf pain, chest pain, complaints, light headedness, nausea / vomiting, using HOG SCRAPER Problem List Medical Problems: (1) Acute kidney injury Status: Acute (2) Anemia Status: Acute (3) Failure of outpatient treatment Status: Acute (4) Gangrene of lower extremity Status: Acute (5) Left leg cellulitis Status: Acute (6) Leg pain, left Status: Acute (7) Occlusion of artery of leg Status: Acute (8) Sepsis Status: Acute Objective dressing C/D/I, A&O x3 Date Time Temp Pulse Resp B/P Pulse Ox O2 Delivery O2 Flow Rate FiO2 02/15/17 08:05 36.4 67 16 110/65 93 Room Air 02/15/17 03:09 36.5 69 16 91/49 94 Room Air 02/15/17 02:00 95 Room Air 02/14/17 23:55 36.8 72 16 144/80 99 Nasal Cannula 2.0 02/14/17 23:53 Nasal Cannula 2.0 02/14/17 20:25 37.1 86 18 130/67 98 Nasal Cannula 02/14/17 19:39 37.3 88 16 136/69 99 Nasal Cannula 2.0 02/14/17 18:25 37.0 78 18 144/80 98 Nasal Cannula 2.0 98 02/14/17 18:20 99 Nasal Cannula 02/14/17 18:15 Nasal Cannula 2.0 02/14/17 17:55 37.2 18 136/75 99 Nasal Cannula 2.0 02/14/17 17:45 79 14 143/74 99 Nasal Cannula 2 02/14/17 17:30 78 12 149/73 99 Nasal Cannula 2 02/14/17 17:15 76 13 149/73 99 Nasal Cannula 2 02/14/17 17:05 36.6 74 14 143/69 99 Nasal Cannula 2 02/14/17 16:55 73 12 150/76 100 Mask 10 02/14/17 16:45 75 21 153/70 100 Mask 10 02/14/17 16:37 37.7 79 10 160/67 100 Mask 10 02/14/17 10:48 36.7 83 18 160/77 98 Room Air Laboratory Results 24 Hours: Test 02/14/17 15:15 02/15/17 06:21 Hematocrit 28.0 % 25.1 % Hemoglobin 8.9 g/dL 7.8 g/dL Assessment Post op day 1 Through knee amputation Left lower extremity Plan Continue post op care Pain control with prescribed medications DVT prophylaxis with Lovenox 30mg BID Infectious disease and medicine consulted resume diet elevate accordingly Dressing change post op day 2 Will continue to monitor hemovac, appears 25ml output thus far, will leave in for now Will discuss further with Dr. Renner Any other questions or concerns notify our office accordingly, thank you
[2017-02-15] MEDS ORDERED: MULTIVITAMIN TAB PO SCH (09:00)
[2017-02-15] MEDS: CARVEDILOL 6.25 MG TAB PO SCH ×2 (09:15→21:12)
[2017-02-15] MEDS: DOCUSATE SODIUM 100 MG CAP PO SCH ×2 (09:15→21:12)
[2017-02-15] MEDS: ERYTHROMYCIN OP OINT 5 MG/GM 3.5 GM TUBE OPL SCH ×2 (09:15→21:00)
[2017-02-15] MEDS: FERROUS SULFATE 325 MG TAB PO SCH ×2 (09:16→21:12)
[2017-02-15] MEDS: CALCIUM CARBONATE 1250MG TAB PO SCH (09:16)
[2017-02-15] MEDS: LACTOBACILLUS ACIDOPHILUS (FLORANEX) TAB PO SCH ×2 (09:16→21:12)
[2017-02-15] MEDS: MULTIVITAMIN TAB PO SCH (09:17)
[2017-02-15] MEDS: ENOXAPARIN 30 MG/0.3 ML SYR SQ SCH ×2 (09:18→21:13)
[2017-02-15] MEDS: CITALOPRAM 20 MG TAB PO SCH (09:18)
[2017-02-15] MEDS: ASPIRIN 81 MG ECTAB PO SCH (09:18)
[2017-02-15] MEDS: OXYCODONE HCL 20 MG TABCR (OXYCONTIN) PO SCH ×2 (09:28→21:13)
--- NOTE | 2017-02-15 11:49 | Medical Consult ---
Consultation Date of Consultation: February 15, 2017. Attending Physician: Bolivar Renner M.D. Reason for Consultation: Post op antibiotic management History of Present Illness The patient is a 67-year-old female with history of left lower extremity chronic ulceration, probable osteomyelitis of the left lower extremity, and severe PAD. She is well known to the Infectious Disease service from previous consultation. She was admitted to the hospital last week with concerns of worsening left lower extremity ulceration, and it was ultimately decided that she would benefit from left AKA. Therefore, she was discharged home a with IV tobramycin and PO Bactrim pending her surgical date. The patient was readmitted on 02/14/2017 for left lower extremity amputation. The patient was given a dose of IV tobramycin and daptomycin prior to surgery. She then underwent through the knee amputation of the left lower extremity. Operative record was reviewed. Her white blood cell count was 7.07 on admission. Her creatinine has been stable, and was 0.59 on admission. She it was not placed on any postoperative antibiotic therapy at this time. The patient continues to have severe pain of the left amputation site. She states that her current pain medications are not controlling her pain well. She has not moved her bowels. She denies fever, sweats, chills, vomiting, diarrhea, or urinary symptoms. Past Medical/Surgical History Medical Problems: (1) Acute kidney injury Status: Acute (2) Anemia Status: Acute (3) Failure of outpatient treatment Status: Acute (4) Gangrene of lower extremity Status: Acute (5) Left leg cellulitis Status: Acute (6) Leg pain, left Status: Acute (7) Occlusion of artery of leg Status: Acute (8) Sepsis Status: Acute Family History DVT FATHER FH: CAD (coronary artery disease) MOTHER (GA age 70) FH: pulmonary embolism SISTER Noncontributory Social History Smoking Status: Former Smoker Alcohol Use: none Drug Use: none Marital Status: Housing Status: lives with family Occupation Status: retired Allergies Coded Allergies: Vancomycin (Verified Adverse Reaction, Severe, WORSENING RENAL FUNCTION, ) Patient prescribed both vancomycin and pip/tazo therapy. Patient's vancomycin trough level for the 800mg IV q12h dosing came back subtherapeutic at 9.7mcg/ml. Vancomycin dose was changed to 1400mg IV q12h to provide an increase in trough and get a therapeutic level. However, trough level returned back on this newer dose as 19.9mcg/ml. Deemed dose to having caused a higher goal trough and determined that a lower dose of 1000mg IV q12h was needed to lower trough into goal range. However, patient's renal function had worsened on 08/02 from 0.46mg/dl for SCr on 08/01 to a SCr of 1.8mcg/ml. This could have been due to the vancomycin dosing or the combination of the patient being on vancomycin and pip/zosyn. At this point ID recommended to switch patient to daptomycin and continue on the piperacillin/tazobactam. Dr. Bagley was made aware of the situation. Renal function was to continue to be monitored as well as the vancomycin levels. Cetirizine (Verified Adverse Reaction, Unknown, BOWEL CRAMPS, 02/14/17) Home Medications Reported Home Medications Medications Dose Route/Sig Max Daily Dose Days Date Category Multivitamin (Multivitamins) Tab 1 Tab PO DAILY 02/13/17 Reported [zinc] 50 DAILY 02/13/17 Reported [Tobramycin] 420 Mg IV DAILY 4 02/09/17 Rx Oxycontin (Oxycodone Hcl) 60 Mg Tab 60 Mg PO Q12 02/09/17 Rx Roxicodone Ir (Oxycodone HCl) 5 Mg Tab 5 Mg PO Q4H PRN 02/09/17 Rx Xanax (Alprazolam) 0.5 Mg Tab 0.5 Mg PO TID PRN 02/09/17 Rx Smz-Tmp Ds (Sulfamethoxazole-Trimethoprim) 1 Tab Tab 1 Tab PO Q12 10 02/09/17 Rx Lactinex (Lactobacillus Acidophilus) Tab 2 Tab PO BID 01/23/17 Reported Elavil (Amitriptyline Hcl) 25 Mg Tab 3 Tab PO HS 30 10/13/16 Reported Coreg (Carvedilol) 6.25 Mg Tab 1 Tab PO BID 90 08/20/16 Reported Trazodone (Trazodone HCl) 50 Mg Tab 50 Mg PO HS 05/19/16 Reported Calcium 600 (Calcium Carbonate) 600 Mg Tab 600 Mg PO DAILY 05/19/16 Reported Citalopram Hydrobromide 20 Mg Tab 20 Mg PO DAILY 03/13/15 Reported Greer-3 (Fish Oil) 1 Ea Cap 4 Cap PO DAILY 02/25/15 Reported Aspirin Ec (Aspirin) 81 Mg Tab 81 Mg PO QAM 02/25/15 Reported Ferrous Sulfate 325 Mg Tab 325 Mg PO BID 12/27/13 Reported Lipitor (Atorvastatin) 20 Mg Tab 20 Mg PO QPM 12/27/13 Reported Current Inpatient Medications Current Inpatient Medications Medications (Trade) Dose Ordered Sig/Connor Route Start Time Stop Time Status Last Admin Dose Admin Ondansetron HCl (Zofran Inj) 4 mg ONE PRN IV 02/14/17 13:00 Labetalol HCl 5 mg 5 mg Q5M PRN IV 02/14/17 13:00 Potassium Chloride/Dextrose/ Sod Cl (D5W And 1/2nss + 20meq KCl) 1,000 ml @ 100 mls/hr Q10H IV 02/14/17 18:45 03/16/17 16:33 02/15/17 05:21 100 MLS/HR Oxycodone HCl (Roxicodone Immediate Rel Tab) 1-2 TABS FOR PAIN 1 TABLET ... Q4H PRN PO 02/14/17 16:45 02/28/17 16:44 02/15/17 11:15 10 MG Morphine Sulfate (MoRPHine SULFATE INJ) If PO analgesic is order... Q2H PRN IV 02/14/17 16:45 02/28/17 16:44 Acetaminophen (Tylenol Tab) 650 mg Q6H PRN PO 02/14/17 16:45 03/16/17 16:44 Magnesium Hydroxide (Milk Of Magnesia Susp) 30 ml Q6H PRN PO 02/14/17 16:45 03/16/17 16:44 Bisacodyl (Dulcolax Supp) 10 mg DAILY PRN VT 02/14/17 16:45 03/16/17 16:44 Sodium Biphosphate/ Sodium Phosphate (Fleet Enema) 132 ml DAILY PRN VT 02/14/17 16:45 03/16/17 16:44 Docusate Sodium (coLACE CAP) 100 mg BID PO 02/14/17 21:00 03/16/17 20:59 02/15/17 09:15 100 MG Ondansetron HCl (Zofran Inj) 4 mg Q6H PRN IV 02/14/17 16:45 03/16/17 16:44 Enoxaparin Sodium (Lovenox Inj) 30 mg Q12H SQ 02/15/17 09:00 03/15/17 08:59 02/15/17 09:18 30 MG Alprazolam (Xanax Tab) 0.5 mg TID PRN PO 02/14/17 16:45 03/16/17 16:44 02/14/17 21:02 0.5 MG Amitriptyline HCl (Elavil Tab) 75 mg HS PO 02/14/17 21:00 03/16/17 20:59 02/14/17 21:04 75 MG Aspirin (Ecotrin Tab) 81 mg QAM PO 02/15/17 09:00 03/17/17 08:59 02/15/17 09:18 81 MG Atorvastatin Calcium (Lipitor Tab) 20 mg QPM PO 02/14/17 21:00 03/16/17 20:59 02/14/17 21:05 20 MG Carvedilol (Coreg Tab) 6.25 mg BID PO 02/14/17 21:00 03/16/17 20:59 02/15/17 09:15 6.25 MG Citalopram Hydrobromide (celeXA TAB) 20 mg DAILY PO 02/15/17 09:00 03/17/17 08:59 02/15/17 09:18 20 MG Ferrous Sulfate (Feosol Tab) 325 mg BID PO 02/14/17 21:00 03/16/17 20:59 02/15/17 09:16 325 MG Lactobacillus Acidophilus (Floranex Tab) 2 tab BID PO 02/14/17 21:00 03/16/17 20:59 02/15/17 09:16 2 TAB Multivitamins (Multivitamin Tab) 1 tab DAILY PO 02/15/17 09:00 03/17/17 08:59 02/15/17 09:17 1 TAB Oxycodone HCl (Oxycontin Tab) 60 mg Q12 PO 02/14/17 21:00 02/28/17 20:59 02/15/17 09:28 60 MG Trazodone HCl (Desyrel Tab) 50 mg HS PO 02/14/17 21:00 03/16/17 20:59 02/14/17 21:04 50 MG Calcium Carbonate (oS-Zi 500 TAB) 1,250 mg DAILY PO 02/15/17 09:00 03/17/17 08:59 02/15/17 09:16 1,250 MG Miscellaneous Information (Order Awaiting Action) 1 ea QS N/A 02/15/17 00:00 03/17/17 00:00 Erythromycin (Erythromycin Oph Oint) 1 appln BID OPL 02/14/17 21:00 02/16/17 20:59 02/15/17 09:15 1 APPLN Review of Systems Constitutional: No chills, No fever, No sweats Eyes: No worsening of vision ENT: No hearing loss Respiratory: No cough, No shortness of breath Cardiovascular: No chest pain Abdomen: No diarrhea, No nausea, No pain, No vomiting Musculoskeletal: + problem reported (left lower extremity ulceration/pain) Genitourinary - Female: No dysuria, No urinary frequency, No urinary urgency Integumentary: No itch, No rash Physical Exam Date Time Temp Pulse Resp B/P Pulse Ox O2 Delivery O2 Flow Rate FiO2 02/15/17 11:17 Room Air 02/15/17 08:05 36.4 67 16 110/65 93 Room Air 02/15/17 07:50 Room Air 02/15/17 03:09 36.5 69 16 91/49 94 Room Air 02/15/17 02:00 95 Room Air 02/14/17 23:55 36.8 72 16 144/80 99 Nasal Cannula 2.0 02/14/17 23:53 Nasal Cannula 2.0 02/14/17 20:25 37.1 86 18 130/67 98 Nasal Cannula 02/14/17 19:39 37.3 88 16 136/69 99 Nasal Cannula 2.0 02/14/17 18:25 37.0 78 18 144/80 98 Nasal Cannula 2.0 98 02/14/17 18:20 99 Nasal Cannula 02/14/17 18:15 Nasal Cannula 2.0 02/14/17 17:55 37.2 18 136/75 99 Nasal Cannula 2.0 02/14/17 17:45 79 14 143/74 99 Nasal Cannula 2 02/14/17 17:30 78 12 149/73 99 Nasal Cannula 2 02/14/17 17:15 76 13 149/73 99 Nasal Cannula 2 02/14/17 17:05 36.6 74 14 143/69 99 Nasal Cannula 2 02/14/17 16:55 73 12 150/76 100 Mask 10 02/14/17 16:45 75 21 153/70 100 Mask 10 02/14/17 16:37 37.7 79 10 160/67 100 Mask 10 General Appearance: WD/WN, no apparent distress Head: normocephalic, atraumatic Eyes: normal inspection, sclerae normal ENT: hearing grossly normal Neck: supple, trachea midline Respiratory/Chest: chest non-tender, lungs clear, normal breath sounds, no respiratory distress, no accessory muscle use Cardiovascular: regular rate, rhythm, no murmur Abdomen/GI: normal bowel sounds, non tender, soft Back: normal inspection Extremities/Musculoskelatal: + pertinent finding (left lower extremity amputation) Neurologic/Psych: alert, normal mood/affect Skin: normal color, warm/dry, no rash Laboratory Results Last 24 Hours Test 02/14/17 15:15 02/15/17 06:21 Hemoglobin 8.9 g/dL 7.8 g/dL Hematocrit 28.0 % 25.1 % Hepatitis C Antibody Screen NEG White Blood Count 7.07 K/uL Red Blood Count 2.87 M/uL Mean Corpuscular Volume 87.5 fL Mean Corpuscular Hemoglobin 27.2 pg Mean Corpuscular Hemoglobin Concent 31.1 g/dl RDW Standard Deviation 51.3 fL RDW Coefficient of Variation 15.9 % Platelet Count 337 K/uL Mean Platelet Volume 8.8 fL Sodium Level 141 mmol/L Potassium Level 4.3 mmol/L Chloride Level 107 mmol/L Carbon Dioxide Level 27 mmol/L Anion Gap 7.0 mmol/L Blood Urea Nitrogen 12 mg/dl Creatinine 0.59 mg/dl Est Creatinine Clear Calc Drug Dose 88.4 ml/min Estimated GFR () 110.7 Estimated GFR (Non- 95.5 BUN/Creatinine Ratio 20.6 Random Glucose 138 mg/dl Calcium Level 7.6 mg/dl Assessment & Plan Patient with left lower extremity chronic ulceration, Pseudomonas infection, and PAD now s/p left through knee amputation. She continues to have severe pain. Due to history of polymicrobial infection, will restart and continue IV Daptomycin and IV Zosyn for at least 2-3 days depending on healing. We will follow. PROVIDER ADDENDUM: Patient examined and reviewed with Ms. Arndt. Agree with above assessment.
[2017-02-15] MEDS ORDERED: PIPERACILL/TAZOBAC CONSULT ACTIVE PRN (12:45)
[2017-02-15] MEDS ORDERED: PIPERACILL/TAZOBAC IV 3.375 GM in DEXTROSE 5% 100ML IV ONE (12:45)
[2017-02-15] MEDS: DAPTOmycin IV 300 MG in SODIUM CHLORIDE 0.9% 50ML 50 ML IV SCH (14:04)
--- NOTE | 2017-02-15 16:30 | Progress Note ---
Subjective Date of Service: February 15, 2017. Subjective Pt evaluation today including: conversation w/ patient, physical exam, lab review, review of studies, review of inpatient medication list Saw/examined the patient in room 352 She is doing well today; no pain at the site of surgery Good PO intake no fevers/chills Problem List Medical Problems: (1) Acute kidney injury Status: Acute (2) Anemia Status: Acute (3) Failure of outpatient treatment Status: Acute (4) Gangrene of lower extremity Status: Acute (5) Left leg cellulitis Status: Acute (6) Leg pain, left Status: Acute (7) Occlusion of artery of leg Status: Acute (8) Sepsis Status: Acute Review of Systems Constitutional: No chills, No fever Respiratory: No shortness of breath Cardiac: No chest pain Abdomen: No diarrhea, No nausea, No pain, No vomiting Musculoskeletal: No joint pain Medications Current Inpatient Medications Medications (Trade) Dose Ordered Sig/Connor Route Start Time Stop Time Status Last Admin Dose Admin Ondansetron HCl (Zofran Inj) 4 mg ONE PRN IV 02/14/17 13:00 Labetalol HCl 5 mg 5 mg Q5M PRN IV 02/14/17 13:00 Potassium Chloride/Dextrose/ Sod Cl (D5W And 1/2nss + 20meq KCl) 1,000 ml @ 100 mls/hr Q10H IV 02/14/17 18:45 03/16/17 16:33 02/15/17 14:30 100 MLS/HR Oxycodone HCl (Roxicodone Immediate Rel Tab) 1-2 TABS FOR PAIN 1 TABLET ... Q4H PRN PO 02/14/17 16:45 02/28/17 16:44 02/15/17 16:02 10 MG Morphine Sulfate (MoRPHine SULFATE INJ) If PO analgesic is order... Q2H PRN IV 02/14/17 16:45 02/28/17 16:44 Acetaminophen (Tylenol Tab) 650 mg Q6H PRN PO 02/14/17 16:45 03/16/17 16:44 Magnesium Hydroxide (Milk Of Magnesia Susp) 30 ml Q6H PRN PO 02/14/17 16:45 03/16/17 16:44 Bisacodyl (Dulcolax Supp) 10 mg DAILY PRN LA 02/14/17 16:45 03/16/17 16:44 Sodium Biphosphate/ Sodium Phosphate (Fleet Enema) 132 ml DAILY PRN LA 02/14/17 16:45 03/16/17 16:44 Docusate Sodium (coLACE CAP) 100 mg BID PO 02/14/17 21:00 03/16/17 20:59 02/15/17 09:15 100 MG Ondansetron HCl (Zofran Inj) 4 mg Q6H PRN IV 02/14/17 16:45 03/16/17 16:44 Enoxaparin Sodium (Lovenox Inj) 30 mg Q12H SQ 02/15/17 09:00 03/15/17 08:59 02/15/17 09:18 30 MG Alprazolam (Xanax Tab) 0.5 mg TID PRN PO 02/14/17 16:45 03/16/17 16:44 02/14/17 21:02 0.5 MG Amitriptyline HCl (Elavil Tab) 75 mg HS PO 02/14/17 21:00 03/16/17 20:59 02/14/17 21:04 75 MG Aspirin (Ecotrin Tab) 81 mg QAM PO 02/15/17 09:00 03/17/17 08:59 02/15/17 09:18 81 MG Atorvastatin Calcium (Lipitor Tab) 20 mg QPM PO 02/14/17 21:00 03/16/17 20:59 02/14/17 21:05 20 MG Carvedilol (Coreg Tab) 6.25 mg BID PO 02/14/17 21:00 03/16/17 20:59 02/15/17 09:15 6.25 MG Citalopram Hydrobromide (celeXA TAB) 20 mg DAILY PO 02/15/17 09:00 03/17/17 08:59 02/15/17 09:18 20 MG Ferrous Sulfate (Feosol Tab) 325 mg BID PO 02/14/17 21:00 03/16/17 20:59 02/15/17 09:16 325 MG Lactobacillus Acidophilus (Floranex Tab) 2 tab BID PO 02/14/17 21:00 03/16/17 20:59 02/15/17 09:16 2 TAB Multivitamins (Multivitamin Tab) 1 tab DAILY PO 02/15/17 09:00 03/17/17 08:59 02/15/17 09:17 1 TAB Oxycodone HCl (Oxycontin Tab) 60 mg Q12 PO 02/14/17 21:00 02/28/17 20:59 02/15/17 09:28 60 MG Trazodone HCl (Desyrel Tab) 50 mg HS PO 02/14/17 21:00 03/16/17 20:59 02/14/17 21:04 50 MG Calcium Carbonate (oS-Zi 500 TAB) 1,250 mg DAILY PO 02/15/17 09:00 03/17/17 08:59 02/15/17 09:16 1,250 MG Miscellaneous Information (Order Awaiting Action) 1 ea QS N/A 02/15/17 00:00 03/17/17 00:00 Erythromycin 1 appln 1 appln BID OPL 02/14/17 21:00 02/16/17 20:59 02/15/17 09:15 1 APPLN Daptomycin 300 mg/ Sodium Chloride 56 ml @ 100 mls/hr DAILY@1200 IV 02/15/17 12:30 02/25/17 12:29 02/15/17 14:04 100 MLS/HR Piperacillin Sod/ Tazobactam Sod/ Dextrose (Zosyn Iv/D5 100ml) 115 ml @ 28.75 mls/ hr Q8H IV 02/15/17 18:00 02/25/17 17:59 Piperacillin Sod/ Tazobactam Sod (Consult) 1 ea UD PRN N/A 02/15/17 12:45 03/17/17 12:44 Objective Vital Signs Date Time Temp Pulse Resp B/P Pulse Ox O2 Delivery O2 Flow Rate FiO2 02/15/17 12:24 36.7 72 14 107/64 96 Room Air 02/15/17 11:17 Room Air 02/15/17 08:05 36.4 67 16 110/65 93 Room Air 02/15/17 07:50 Room Air 02/15/17 03:09 36.5 69 16 91/49 94 Room Air 02/15/17 02:00 95 Room Air 02/14/17 23:55 36.8 72 16 144/80 99 Nasal Cannula 2.0 02/14/17 23:53 Nasal Cannula 2.0 02/14/17 20:25 37.1 86 18 130/67 98 Nasal Cannula 02/14/17 19:39 37.3 88 16 136/69 99 Nasal Cannula 2.0 02/14/17 18:25 37.0 78 18 144/80 98 Nasal Cannula 2.0 98 02/14/17 18:20 99 Nasal Cannula 02/14/17 18:15 Nasal Cannula 2.0 02/14/17 17:55 37.2 18 136/75 99 Nasal Cannula 2.0 02/14/17 17:45 79 14 143/74 99 Nasal Cannula 2 02/14/17 17:30 78 12 149/73 99 Nasal Cannula 2 02/14/17 17:15 76 13 149/73 99 Nasal Cannula 2 02/14/17 17:05 36.6 74 14 143/69 99 Nasal Cannula 2 02/14/17 16:55 73 12 150/76 100 Mask 10 02/14/17 16:45 75 21 153/70 100 Mask 10 02/14/17 16:37 37.7 79 10 160/67 100 Mask 10 Physical Exam General Appearance: no apparent distress Eyes: normal inspection ENT: hearing grossly normal Respiratory/Chest: no respiratory distress, no accessory muscle use Extremities: + pertinent finding (L through knee amputation; dressed, wound vac in place) Neurologic/Psychiatric: no motor/sensory deficits, alert, normal mood/affect Laboratory Results Last 24 Hours Test 02/15/17 06:21 White Blood Count 7.07 K/uL Red Blood Count 2.87 M/uL Hemoglobin 7.8 g/dL Hematocrit 25.1 % Mean Corpuscular Volume 87.5 fL Mean Corpuscular Hemoglobin 27.2 pg Mean Corpuscular Hemoglobin Concent 31.1 g/dl RDW Standard Deviation 51.3 fL RDW Coefficient of Variation 15.9 % Platelet Count 337 K/uL Mean Platelet Volume 8.8 fL Sodium Level 141 mmol/L Potassium Level 4.3 mmol/L Chloride Level 107 mmol/L Carbon Dioxide Level 27 mmol/L Anion Gap 7.0 mmol/L Blood Urea Nitrogen 12 mg/dl Creatinine 0.59 mg/dl Est Creatinine Clear Calc Drug Dose 88.4 ml/min Estimated GFR () 110.7 Estimated GFR (Non- 95.5 BUN/Creatinine Ratio 20.6 Random Glucose 138 mg/dl Calcium Level 7.6 mg/dl Assessment and Plan This is a 67 year old female with a PMH of HTN, HLD, depression/anxiety, hx. of lymphosarcoma of the L leg; multiple infections of the L LE; presents for a L through knee amputation L Through Knee Amputation POD #1 doing well post-operatively pain controlled good PO intake further management as per ortho Anemia multifactorial: iron deficiency, acute blood loss, etc. Hgb dropped from 8.9 to 7.8, expected post-operatively no need for transfusion, keep Hgb > 7, will monitor HTN blood pressure stable continue Coreg HLD continue statin DVT ppx as per ortho FULL CODE d/c as per ortho
[2017-02-15] MEDS: PIPERACILL/TAZOBAC IV 3.375 GM in DEXTROSE 5% 100ML 100 ML IV SCH (17:34)
--- NOTE | 2017-02-15 19:32 | PROGRESS NOTE ---
DATE: 02/15/2017 SUBJECTIVE: She is resting comfortably in bed. She appears quite upbeat. Her pain is well-managed. She is afebrile. Her vital signs are stable. Her urine output is adequate. Labs show a hemoglobin of 8. PRP is noted. She received physical therapy today and was able to ambulate with a walker. Her Hemovac drainage was approximately 70 mL today. Her dressing is clean and dry without any drainage. IMPRESSION: Pressure ulcer of the left heel stage 4, present on admission and a chronic nonhealing wound of the left lower extremity status post revascularization and prior skin graft surgery in the setting of peripheral arterial disease and peripheral neuropathy. She is status post a through-knee amputation. PLAN: 1. She is doing well; medical and ID consults are appreciated. Her dressing will be changed in the morning and the drain will be pulled. She will continue with physical therapy and her antibiotics. 2. Disposition; to a intermediate or acute care rehab is pending. She will eventually need evaluation for prosthesis. 3. We will check a CBC in the morning.
[2017-02-15] MEDS: AMITRIPTYLINE HCL 25 MG TAB PO SCH (21:12)
[2017-02-15] MEDS: ATORVASTATIN 20 MG TAB PO SCH (21:12)
[2017-02-15] MEDS: TRAZODONE HCL 50 MG TAB PO SCH (21:12)
[2017-02-15] MEDS: ALPRAZOLAM 0.5 MG TAB PO PRN (21:15)
[2017-02-16] VITALS (7 sets, daily range): BP systolic 82–115; BP diastolic 45–68; PULSE 73–81; TEMP 36.5–37; O2SAT 92–95
[2017-02-16] MEDS: D5W AND 1/2NSS + 20MEQ KCL 1,000 ML IV SCH ×2 (00:53→10:46)
[2017-02-16] MEDS: PIPERACILL/TAZOBAC IV 3.375 GM in DEXTROSE 5% 100ML 100 ML IV SCH ×3 (01:55→17:34)
[2017-02-16] MEDS: OXYCODONE HCL IR 5 MG TAB (IMMEDIATE RELEASE) PO PRN ×2 (06:02→16:05)
[2017-02-16 07:22] LABS: HEMATOCRIT 24.4 % (37-47); MEAN CELL VOLUME 89.4 fL (80-100); MEAN CORPUSCULAR HEMOGLOBIN 27.1 pg (25-34); MEAN CORPUSCULAR HGB CONC 30.3 g/dl (32-36); MEAN PLATELET VOLUME 8.9 fL (7.4-10.4); PLATELET COUNT 292 K/uL (130-400); RED BLOOD COUNT 2.73 M/uL (4.2-5.4); WHITE BLOOD COUNT 6.16 K/uL (4.8-10.8)
[2017-02-16 07:49] LABS: CALCIUM 7.8 mg/dl (8.5-10.1); CREATININE 0.68 mg/dl (0.60-1.20); POTASSIUM 4.2 mmol/L (3.5-5.1)
--- NOTE | 2017-02-16 07:52 | Discharge Instructions ---
Discharge Instructions Date of Service February 16, 2017. Admission Reason for Admission: Non-Healing Left Lower Extremity Wound Discharge Discharge Diagnosis / Problem: Non healing left lower extremity wound - s/p LLE amputation Discharge Goals Goal(s): Decrease discomfort, Improve function, Increase independence Activity Recommendations Activity Level: OOB In Chair, Assistance Required Therapies: Physical Therapy, Weight Bearing Status (NWB LLE), Occupational Therapy Weightbearing Status: Left non-weightbearing, Right weightbearing (as tolerated ) Lifting Limitations: none Exercise/Sports Limitations: none Shower/Bathe: may shower/bathe in 3 days . Additional Information Patient informed of condition: Yes Advance Directives: No DNR: No Level of Care: Acute Rehab Communicable Disease: Yes (H/O MRSA) Prognosis: Stable Kevin Catheter: No Instructions / Follow-Up Instructions / Follow-Up DIET: * Resume previous diet. MEDICATIONS: * Please take your prescriptions as instructed at your pre-op appointment and/ or see medication discharge instructions listed above. * If concerns develop, call your physician's office at . SPECIAL CARE INSTRUCTIONS: * Ice to left lower extremity to relieve pain/swelling * Elevate left lower extremity above heart to relieve pain/swelling * Keep dressing clean, dry, intact. May change dressing daily. May start to shower on post operative day 4. Pat incision dry. Do not scrub or soak incision. Redress incision. * Okay to be out of bed to chair. No weight on left lower extremity * Your surgical extremity may be discolored due to prepping agents used on the skin. A bluish-green tint is a normal variant and should not cause alarm. Call your doctor at [phone] if: * Temperature above 101 degrees * Pain not relieved by pain medicine ordered * There is increased drainage or redness from any incision * You have any unanswered questions, problems or concerns. FOLLOW UP VISIT: * If not already scheduled, please call the office at to schedule a follow-up appointment. Please call with questions or concerns. * You have a follow up appointment with Dr. Renner on 03/03/17 at 9:00 a.m. * You have a follow up appointment at [facility] on 02/22/17 at 12: 15 p.m. Current Hospital Diet Patient's current hospital diet: Regular Diet Discharge Diet Recommended Diet: Regular Diet Procedures Procedures Performed: Left through the knee lower leg amputation Pending Studies Studies pending at discharge: no Physician Orders On Transfer Dressing Changes: Dressing changes daily and PRN to Left lower extremity. Keep compression wrap on left leg with ASHLYN bandages to help with swelling. Vital Signs: per routine Medical Emergencies . Who to Call and When: Medical Emergencies: If at any time you feel your situation is an emergency, please call 911 immediately. . Non-Emergent Contact Non-Emergency issues call your: Surgeon Call Non-Emergent contact if: temperature is above 101, your pain is not controlled, your pain is concerning you, wound has increased drainage, you have any medication questions . . "Provider Documentation" section prepared by Mariama Henderson. . Core Measure Problem Core Measures: VTE VTE Core Measures Date of VTE Diagnosis: February 14, 2017 Time of VTE Diagnosis: 07:53 Reason no anticoag overlap I/P: Treatment provided - N/A Reason no anticoag overlap @DC: Treatment provided - N/A
[2017-02-16 07:58] LABS: PARTIAL THROMBOPLASTIN RATIO 1.1
[2017-02-16] MEDS: OXYCODONE HCL 20 MG TABCR (OXYCONTIN) PO SCH ×2 (08:44→20:41)
[2017-02-16] MEDS: CALCIUM CARBONATE 1250MG TAB PO SCH (08:44)
[2017-02-16] MEDS: ERYTHROMYCIN OP OINT 5 MG/GM 3.5 GM TUBE OPL SCH (08:44)
[2017-02-16] MEDS: CITALOPRAM 20 MG TAB PO SCH (08:45)
[2017-02-16] MEDS: MULTIVITAMIN TAB PO SCH (08:45)
[2017-02-16] MEDS: DOCUSATE SODIUM 100 MG CAP PO SCH ×2 (08:45→20:44)
[2017-02-16] MEDS: ASPIRIN 81 MG ECTAB PO SCH (08:45)
[2017-02-16] MEDS: FERROUS SULFATE 325 MG TAB PO SCH ×2 (08:45→20:44)
[2017-02-16] MEDS: LACTOBACILLUS ACIDOPHILUS (FLORANEX) TAB PO SCH ×2 (08:45→20:46)
[2017-02-16] MEDS: ENOXAPARIN 30 MG/0.3 ML SYR SQ SCH ×2 (08:46→20:43)
[2017-02-16] MEDS: CARVEDILOL 6.25 MG TAB PO SCH ×2 (08:46→20:45)
--- NOTE | 2017-02-16 11:00 | Infectious Disease Progress Nt ---
Progress Note Date of Service February 16, 2017. Subjective Pt evaluation today including: conversation w/ patient, physical exam, chart review, lab review, review of studies, conversation w/ dairy feed sales consultant (Mike Stovall), review of inpatient medication list Patient's WBC count was 6.16 today. Hgb is slightly lower today at 7.4. She is feeling improved this morning. She states that her pain is about a 1-2 on a scale of 10 and is not radiating. She denies sweats, chills, nausea, vomiting, diarrhea. She continues on IV Zosyn and Daptomycin. She has been afebrile. She is requesting that she stay another day prior to transfer to [facility] All Other Systems: Reviewed and Negative Medications Current Inpatient Medications Medications (Trade) Dose Ordered Sig/Connor Route Start Time Stop Time Status Last Admin Dose Admin Ondansetron HCl (Zofran Inj) 4 mg ONE PRN IV 02/14/17 13:00 Labetalol HCl 5 mg 5 mg Q5M PRN IV 02/14/17 13:00 Potassium Chloride/Dextrose/ Sod Cl (D5W And 1/2nss + 20meq KCl) 1,000 ml @ 100 mls/hr Q10H IV 02/14/17 18:45 03/16/17 16:33 02/16/17 10:46 100 MLS/HR Oxycodone HCl (Roxicodone Immediate Rel Tab) 1-2 TABS FOR PAIN 1 TABLET ... Q4H PRN PO 02/14/17 16:45 02/28/17 16:44 02/16/17 06:02 10 MG Morphine Sulfate (MoRPHine SULFATE INJ) If PO analgesic is order... Q2H PRN IV 02/14/17 16:45 02/28/17 16:44 02/15/17 17:34 2 MG Acetaminophen (Tylenol Tab) 650 mg Q6H PRN PO 02/14/17 16:45 03/16/17 16:44 Magnesium Hydroxide (Milk Of Magnesia Susp) 30 ml Q6H PRN PO 02/14/17 16:45 03/16/17 16:44 Bisacodyl (Dulcolax Supp) 10 mg DAILY PRN MN 02/14/17 16:45 03/16/17 16:44 Sodium Biphosphate/ Sodium Phosphate (Fleet Enema) 132 ml DAILY PRN MN 02/14/17 16:45 03/16/17 16:44 Docusate Sodium (coLACE CAP) 100 mg BID PO 02/14/17 21:00 03/16/17 20:59 02/16/17 08:45 100 MG Ondansetron HCl (Zofran Inj) 4 mg Q6H PRN IV 02/14/17 16:45 03/16/17 16:44 Enoxaparin Sodium (Lovenox Inj) 30 mg Q12H SQ 02/15/17 09:00 03/15/17 08:59 02/16/17 08:46 30 MG Alprazolam (Xanax Tab) 0.5 mg TID PRN PO 02/14/17 16:45 03/16/17 16:44 02/15/17 21:15 0.5 MG Amitriptyline HCl (Elavil Tab) 75 mg HS PO 02/14/17 21:00 03/16/17 20:59 02/15/17 21:12 75 MG Aspirin (Ecotrin Tab) 81 mg QAM PO 02/15/17 09:00 03/17/17 08:59 02/16/17 08:45 81 MG Atorvastatin Calcium (Lipitor Tab) 20 mg QPM PO 02/14/17 21:00 03/16/17 20:59 02/15/17 21:12 20 MG Carvedilol (Coreg Tab) 6.25 mg BID PO 02/14/17 21:00 03/16/17 20:59 02/16/17 08:46 6.25 MG Citalopram Hydrobromide (celeXA TAB) 20 mg DAILY PO 02/15/17 09:00 03/17/17 08:59 02/16/17 08:45 20 MG Ferrous Sulfate (Feosol Tab) 325 mg BID PO 02/14/17 21:00 03/16/17 20:59 02/16/17 08:45 325 MG Lactobacillus Acidophilus (Floranex Tab) 2 tab BID PO 02/14/17 21:00 03/16/17 20:59 02/16/17 08:45 2 TAB Multivitamins (Multivitamin Tab) 1 tab DAILY PO 02/15/17 09:00 03/17/17 08:59 02/16/17 08:45 1 TAB Oxycodone HCl (Oxycontin Tab) 60 mg Q12 PO 02/14/17 21:00 02/28/17 20:59 02/16/17 08:44 60 MG Trazodone HCl (Desyrel Tab) 50 mg HS PO 02/14/17 21:00 03/16/17 20:59 02/15/17 21:12 50 MG Calcium Carbonate (oS-Zi 500 TAB) 1,250 mg DAILY PO 02/15/17 09:00 03/17/17 08:59 02/16/17 08:44 1,250 MG Miscellaneous Information (Order Awaiting Action) 1 ea QS N/A 02/15/17 00:00 03/17/17 00:00 Erythromycin 1 appln 1 appln BID OPL 02/14/17 21:00 02/16/17 20:59 02/15/17 09:15 1 APPLN Daptomycin 300 mg/ Sodium Chloride 56 ml @ 100 mls/hr DAILY@1200 IV 02/15/17 12:30 02/25/17 12:29 02/15/17 14:04 100 MLS/HR Piperacillin Sod/ Tazobactam Sod/ Dextrose (Zosyn Iv/D5 100ml) 115 ml @ 28.75 mls/ hr Q8H IV 02/15/17 18:00 02/25/17 17:59 02/16/17 09:49 28.75 MLS/HR Piperacillin Sod/ Tazobactam Sod (Consult) 1 ea UD PRN N/A 02/15/17 12:45 03/17/17 12:44 Objective Vital Signs Date Time Temp Pulse Resp B/P Pulse Ox O2 Delivery O2 Flow Rate FiO2 02/16/17 08:29 93 Room Air 02/16/17 08:11 36.7 80 16 104/64 93 Room Air 02/16/17 08:00 Room Air 02/16/17 00:45 Room Air 02/15/17 23:35 37.0 77 16 93/56 94 Room Air 02/15/17 21:07 84 112/65 02/15/17 19:44 37.0 76 16 118/70 94 Room Air 02/15/17 16:00 Room Air 02/15/17 15:40 37.0 72 18 114/68 94 Room Air 02/15/17 12:24 36.7 72 14 107/64 96 Room Air 02/15/17 11:17 Room Air Physical Exam General Appearance: WD/WN, no apparent distress Eyes: normal inspection, sclerae normal ENT: hearing grossly normal Neck: supple, trachea midline Respiratory/Chest: no respiratory distress, no accessory muscle use Cardiovascular: regular rate, rhythm Extremities: + pertinent finding (left Through the knee amputation- Clean dressing in place.) Neurologic/Psychiatric: alert, normal mood/affect Skin: normal color, warm/dry, no rash Laboratory Results Last 24 Hours Test 02/16/17 06:13 White Blood Count 6.16 K/uL Red Blood Count 2.73 M/uL Hemoglobin 7.4 g/dL Hematocrit 24.4 % Mean Corpuscular Volume 89.4 fL Mean Corpuscular Hemoglobin 27.1 pg Mean Corpuscular Hemoglobin Concent 30.3 g/dl RDW Standard Deviation 51.2 fL RDW Coefficient of Variation 15.9 % Platelet Count 292 K/uL Mean Platelet Volume 8.9 fL Activated Partial Thromboplast Time 28.2 SECONDS Partial Thromboplastin Ratio 1.1 Sodium Level 141 mmol/L Potassium Level 4.2 mmol/L Chloride Level 108 mmol/L Carbon Dioxide Level 27 mmol/L Anion Gap 6.0 mmol/L Blood Urea Nitrogen 13 mg/dl Creatinine 0.68 mg/dl Est Creatinine Clear Calc Drug Dose 76.7 ml/min Estimated GFR () 105.6 Estimated GFR (Non- 91.2 BUN/Creatinine Ratio 19.0 Random Glucose 97 mg/dl Calcium Level 7.8 mg/dl Total Creatine Kinase 36 U/L Assessment and Plan Patient with left lower extremity chronic ulceration, Pseudomonas infection, and PAD now s/p left through knee amputation. She is currently on IV Daptomycin and Zosyn. Feel that she can continue IV therapy while in house and then transition to PO Bactrim and Cipro to complete 7 more days. She likely can discontinue therapy after that time if her wound appears to be healing well. PROVIDER ADDENDUM: Patient reviewed with Ms. Arndt. Agree with above assessment.
--- NOTE | 2017-02-16 12:44 | Progress Note ---
Subjective Date of Service: February 16, 2017. Subjective Pt evaluation today including: conversation w/ patient, physical exam, lab review, review of studies, review of inpatient medication list Saw/examined the patient in room 352 Pain controlled +BM good PO intake no other issues to note Problem List Medical Problems: (1) Acute kidney injury Status: Acute (2) Anemia Status: Acute (3) Failure of outpatient treatment Status: Acute (4) Gangrene of lower extremity Status: Acute (5) Left leg cellulitis Status: Acute (6) Leg pain, left Status: Acute (7) Occlusion of artery of leg Status: Acute (8) Sepsis Status: Acute Review of Systems Respiratory: No shortness of breath Cardiac: No chest pain Abdomen: No diarrhea, No nausea, No pain, No vomiting Musculoskeletal: No joint pain Medications Current Inpatient Medications Medications (Trade) Dose Ordered Sig/Connor Route Start Time Stop Time Status Last Admin Dose Admin Ondansetron HCl (Zofran Inj) 4 mg ONE PRN IV 02/14/17 13:00 Labetalol HCl 5 mg 5 mg Q5M PRN IV 02/14/17 13:00 Potassium Chloride/Dextrose/ Sod Cl (D5W And 1/2nss + 20meq KCl) 1,000 ml @ 100 mls/hr Q10H IV 02/14/17 18:45 03/16/17 16:33 02/16/17 10:46 100 MLS/HR Oxycodone HCl (Roxicodone Immediate Rel Tab) 1-2 TABS FOR PAIN 1 TABLET ... Q4H PRN PO 02/14/17 16:45 02/28/17 16:44 02/16/17 06:02 10 MG Morphine Sulfate (MoRPHine SULFATE INJ) If PO analgesic is order... Q2H PRN IV 02/14/17 16:45 02/28/17 16:44 02/15/17 17:34 2 MG Acetaminophen (Tylenol Tab) 650 mg Q6H PRN PO 02/14/17 16:45 03/16/17 16:44 Magnesium Hydroxide (Milk Of Magnesia Susp) 30 ml Q6H PRN PO 02/14/17 16:45 03/16/17 16:44 Bisacodyl (Dulcolax Supp) 10 mg DAILY PRN HI 02/14/17 16:45 03/16/17 16:44 Sodium Biphosphate/ Sodium Phosphate (Fleet Enema) 132 ml DAILY PRN HI 02/14/17 16:45 03/16/17 16:44 Docusate Sodium (coLACE CAP) 100 mg BID PO 02/14/17 21:00 03/16/17 20:59 02/16/17 08:45 100 MG Ondansetron HCl (Zofran Inj) 4 mg Q6H PRN IV 02/14/17 16:45 03/16/17 16:44 Enoxaparin Sodium (Lovenox Inj) 30 mg Q12H SQ 02/15/17 09:00 03/15/17 08:59 02/16/17 08:46 30 MG Alprazolam (Xanax Tab) 0.5 mg TID PRN PO 02/14/17 16:45 03/16/17 16:44 02/15/17 21:15 0.5 MG Amitriptyline HCl (Elavil Tab) 75 mg HS PO 02/14/17 21:00 03/16/17 20:59 02/15/17 21:12 75 MG Aspirin (Ecotrin Tab) 81 mg QAM PO 02/15/17 09:00 03/17/17 08:59 02/16/17 08:45 81 MG Atorvastatin Calcium (Lipitor Tab) 20 mg QPM PO 02/14/17 21:00 03/16/17 20:59 02/15/17 21:12 20 MG Carvedilol (Coreg Tab) 6.25 mg BID PO 02/14/17 21:00 03/16/17 20:59 02/16/17 08:46 6.25 MG Citalopram Hydrobromide (celeXA TAB) 20 mg DAILY PO 02/15/17 09:00 03/17/17 08:59 02/16/17 08:45 20 MG Ferrous Sulfate (Feosol Tab) 325 mg BID PO 02/14/17 21:00 03/16/17 20:59 02/16/17 08:45 325 MG Lactobacillus Acidophilus (Floranex Tab) 2 tab BID PO 02/14/17 21:00 03/16/17 20:59 02/16/17 08:45 2 TAB Multivitamins (Multivitamin Tab) 1 tab DAILY PO 02/15/17 09:00 03/17/17 08:59 02/16/17 08:45 1 TAB Oxycodone HCl (Oxycontin Tab) 60 mg Q12 PO 02/14/17 21:00 02/28/17 20:59 02/16/17 08:44 60 MG Trazodone HCl (Desyrel Tab) 50 mg HS PO 02/14/17 21:00 03/16/17 20:59 02/15/17 21:12 50 MG Calcium Carbonate (oS-Zi 500 TAB) 1,250 mg DAILY PO 02/15/17 09:00 03/17/17 08:59 02/16/17 08:44 1,250 MG Miscellaneous Information (Order Awaiting Action) 1 ea QS N/A 02/15/17 00:00 03/17/17 00:00 Erythromycin 1 appln 1 appln BID OPL 02/14/17 21:00 02/16/17 20:59 02/15/17 09:15 1 APPLN Daptomycin 300 mg/ Sodium Chloride 56 ml @ 100 mls/hr DAILY@1200 IV 02/15/17 12:30 02/25/17 12:29 02/15/17 14:04 100 MLS/HR Piperacillin Sod/ Tazobactam Sod/ Dextrose (Zosyn Iv/D5 100ml) 115 ml @ 28.75 mls/ hr Q8H IV 02/15/17 18:00 02/25/17 17:59 02/16/17 09:49 28.75 MLS/HR Piperacillin Sod/ Tazobactam Sod (Consult) 1 ea UD PRN N/A 02/15/17 12:45 03/17/17 12:44 Objective Vital Signs Date Time Temp Pulse Resp B/P Pulse Ox O2 Delivery O2 Flow Rate FiO2 02/16/17 08:29 93 Room Air 02/16/17 08:11 36.7 80 16 104/64 93 Room Air 02/16/17 08:00 Room Air 02/16/17 00:45 Room Air 02/15/17 23:35 37.0 77 16 93/56 94 Room Air 02/15/17 21:07 84 112/65 02/15/17 19:44 37.0 76 16 118/70 94 Room Air 02/15/17 16:00 Room Air 02/15/17 15:40 37.0 72 18 114/68 94 Room Air Physical Exam General Appearance: no apparent distress Respiratory/Chest: no respiratory distress, no accessory muscle use Extremities: + pertinent finding (L through knee amputation; drain removed, dressing in place, changed) Laboratory Results Last 24 Hours Test 02/16/17 06:13 White Blood Count 6.16 K/uL Red Blood Count 2.73 M/uL Hemoglobin 7.4 g/dL Hematocrit 24.4 % Mean Corpuscular Volume 89.4 fL Mean Corpuscular Hemoglobin 27.1 pg Mean Corpuscular Hemoglobin Concent 30.3 g/dl RDW Standard Deviation 51.2 fL RDW Coefficient of Variation 15.9 % Platelet Count 292 K/uL Mean Platelet Volume 8.9 fL Activated Partial Thromboplast Time 28.2 SECONDS Partial Thromboplastin Ratio 1.1 Sodium Level 141 mmol/L Potassium Level 4.2 mmol/L Chloride Level 108 mmol/L Carbon Dioxide Level 27 mmol/L Anion Gap 6.0 mmol/L Blood Urea Nitrogen 13 mg/dl Creatinine 0.68 mg/dl Est Creatinine Clear Calc Drug Dose 76.7 ml/min Estimated GFR () 105.6 Estimated GFR (Non- 91.2 BUN/Creatinine Ratio 19.0 Random Glucose 97 mg/dl Calcium Level 7.8 mg/dl Total Creatine Kinase 36 U/L Assessment and Plan This is a 67 year old female with a PMH of HTN, HLD, depression/anxiety, hx. of lymphosarcoma of the L leg; multiple infections of the L LE; presents for a L through knee amputation L Through Knee Amputation 02/16 POD #2 doing well plan for discharge to rehab, she wants to stay one extra day and be discharged on 02/17; will leave it up to orthopedics 02/15 POD #1 doing well post-operatively pain controlled good PO intake further management as per ortho Anemia 02/16 Hgb drop to 7.4 will monitor, transfuse PRN for symptoms or < 7 02/15 multifactorial: iron deficiency, acute blood loss, etc. Hgb dropped from 8.9 to 7.8, expected post-operatively no need for transfusion, keep Hgb > 7, will monitor HTN blood pressure stable continue Coreg HLD continue statin DVT ppx as per ortho FULL CODE d/c as per ortho
[2017-02-16] MEDS: DAPTOmycin IV 300 MG in SODIUM CHLORIDE 0.9% 50ML 50 ML IV SCH (13:08)
--- NOTE | 2017-02-16 15:47 | Orthopedic Progress Note ---
Orthopedic Progress Note Date of Service February 16, 2017. Subjective Post OP Day: 2 Reports: feeling well, Denies: SOB, calf pain, chest pain, complaints, light headedness, nausea / vomiting Objective N/V intact, capillary refill less than 2 sec., dressing C/D/I, incision C/D/I, A &O x3 Pt is ambulatory using her walker, moving well. Drain is not putting out any drainage. Date Time Temp Pulse Resp B/P Pulse Ox O2 Delivery O2 Flow Rate FiO2 02/16/17 15:15 37.0 78 18 115/68 95 Room Air 02/16/17 12:54 36.5 81 16 106/62 93 02/16/17 08:29 93 Room Air 02/16/17 08:11 36.7 80 16 104/64 93 Room Air 02/16/17 08:00 Room Air 02/16/17 00:45 Room Air 02/15/17 23:35 37.0 77 16 93/56 94 Room Air 02/15/17 21:07 84 112/65 02/15/17 19:44 37.0 76 16 118/70 94 Room Air 02/15/17 16:00 Room Air Laboratory Results 24 Hours: Test 02/16/17 06:13 Hematocrit 24.4 % Hemoglobin 7.4 g/dL Assessment & Plan Assessment: Post op day 2 Through knee amputation Left lower extremity Plan: Continue post op care Pain control with prescribed medications DVT prophylaxis with Lovenox 30mg BID Infectious disease and medicine involved elevate accordingly Dressing changed today after removal of drain. Wound has minor oozing. Will discuss further with Dr. Renner Anticipate D/C to SNF or Critical access hospital tomorrow. Continue IV abx per ID Discharge Planning Discharge Planning: rehab hospital, prison facility
[2017-02-16] MEDS: ALPRAZOLAM 0.5 MG TAB PO PRN (20:39)
[2017-02-16] MEDS: AMITRIPTYLINE HCL 25 MG TAB PO SCH (20:43)
[2017-02-16] MEDS: ATORVASTATIN 20 MG TAB PO SCH (20:44)
[2017-02-16] MEDS: TRAZODONE HCL 50 MG TAB PO SCH (20:45)
--- NOTE | 2017-02-16 23:28 | PROGRESS NOTE ---
DATE: 02/16/2017 She is resting comfortably in bed. Her pain is well controlled, and overall she is very upbeat. She has been getting around well with her crutches. She is afebrile. Her vital signs are stable. Her labs are noted. Hematocrit 24, hemoglobin 7, platelet count 292. Her dressing is clean and dry. IMPRESSION: Through-knee amputation on the left side for a pressure ulcer of the left heel, stage IV, present on admission and a chronic nonhealing wound of the left lower extremity status post revascularization of prior skin graft surgery in the setting of peripheral arterial disease and peripheral neuropathy. PLAN: She will finish out a 72-hour course of IV antibiotics and will be switched over to oral antibiotics per ID. She will be transferred to acute care rehab when a bed is available. We discussed that given the problems with the remainder of her limb, specifically the probable nonunion of her subtrochanteric femoral fracture as well as the radiation changes of the bone and soft tissues, a full weightbearing in prosthesis may not be realistic. We will try to get her fitted for a prosthesis which may aid her for partial weightbearing using a walker. It is possible, although I think that it is going to be unlikely that she ambulates without any assisted device using a prosthesis. We will check CBC in the morning. Continue Lovenox. Continue PT.
[2017-02-17] MEDS: PIPERACILL/TAZOBAC IV 3.375 GM in DEXTROSE 5% 100ML 100 ML IV SCH ×2 (01:45→09:48)
[2017-02-17 07:00] VITALS: BP 104/57; PULSE 69; TEMP 36.7; O2SAT 93
[2017-02-17 07:21] LABS: MEAN CELL VOLUME 90.2 fL (80-100); MEAN CORPUSCULAR HEMOGLOBIN 28.2 pg (25-34); MEAN CORPUSCULAR HGB CONC 31.3 g/dl (32-36); MEAN PLATELET VOLUME 8.8 fL (7.4-10.4); PLATELET COUNT 226 K/uL (130-400); RED BLOOD COUNT 2.55 M/uL (4.2-5.4); WHITE BLOOD COUNT 5.22 K/uL (4.8-10.8)
[2017-02-17 07:53] LABS: BUN/CREATININE RATIO 15.3 (10-20); CALCIUM 8.3 mg/dl (8.5-10.1); CREATININE 0.64 mg/dl (0.60-1.20); POTASSIUM 4.1 mmol/L (3.5-5.1)
[2017-02-17] MEDS: FERROUS SULFATE 325 MG TAB PO SCH (08:45)
[2017-02-17] MEDS: ASPIRIN 81 MG ECTAB PO SCH (08:45)
[2017-02-17] MEDS: CALCIUM CARBONATE 1250MG TAB PO SCH (08:45)
[2017-02-17] MEDS: MULTIVITAMIN TAB PO SCH (08:45)
[2017-02-17] MEDS: DOCUSATE SODIUM 100 MG CAP PO SCH (08:45)
[2017-02-17] MEDS: CARVEDILOL 6.25 MG TAB PO SCH (08:45)
[2017-02-17] MEDS: LACTOBACILLUS ACIDOPHILUS (FLORANEX) TAB PO SCH (08:45)
[2017-02-17] MEDS: OXYCODONE HCL 20 MG TABCR (OXYCONTIN) PO SCH (08:45)
[2017-02-17] MEDS: CITALOPRAM 20 MG TAB PO SCH (08:46)
[2017-02-17] MEDS: ENOXAPARIN 30 MG/0.3 ML SYR SQ SCH (08:46)
[2017-02-17] MEDS ORDERED: CLC100 PO (08:49)
[2017-02-17] MEDS ORDERED: LVNIS30 SQ ×2 (08:49→16:30)
--- NOTE | 2017-02-17 08:53 | Orthopedic Progress Note ---
Orthopedic Progress Note Date of Service February 17, 2017. Subjective Post OP Day: 3 Reports: feeling well, pain controlled w PO medications, Denies: SOB, calf pain , chest pain, complaints, light headedness, nausea / vomiting Objective calves soft nontender (RLE), N/V intact, capillary refill less than 2 sec., dressing C/D/I, incision C/D/I, A&O x3, toes mobile Sutures retained, no active drainage. no erythema, minimal swelling left lower extremity Date Time Temp Pulse Resp B/P Pulse Ox O2 Delivery O2 Flow Rate FiO2 02/17/17 07:43 Room Air 02/17/17 07:00 36.7 69 16 104/57 93 Room Air 02/17/17 00:06 Room Air 02/16/17 23:53 73 93/54 02/16/17 23:35 36.7 73 18 82/45 92 Room Air 02/16/17 21:00 Room Air 02/16/17 20:38 81 113/66 02/16/17 15:15 37.0 78 18 115/68 95 Room Air 02/16/17 12:54 36.5 81 16 106/62 93 Laboratory Results 24 Hours: Test 02/17/17 06:54 Hematocrit 23.0 % Hemoglobin 7.2 g/dL Assessment & Plan Assessment: POD 3 Through knee amputation Left lower extremity by Dr. Renner Plan: Continue post op care Pain control with prescribed medications DVT prophylaxis with Lovenox 30mg BID x 4 weeks Appreciate medicine and ID assistance Elevate/ice to left leg as needed for pain/swelling Dressing changes daily and PRN Will discuss further with Dr. Renner Antibiotics as per ID. Most likely will switch to oral Bactrim or Cipro today. [facility] or [facility] Monday if no bed at [facility]. Follow up as outpatient as scheduled. Discharge Planning Discharge Planning: rehab hospital, snf facility
[2017-02-17] MEDS: DAPTOmycin IV 300 MG in SODIUM CHLORIDE 0.9% 50ML 50 ML IV SCH (11:51)
[2017-02-17 15:46] VITALS: BP 100/61; PULSE 73; TEMP 37.1; O2SAT 92
[2017-02-17 16:00] VITALS: BP 100/61; PULSE 73; TEMP 37.1; O2SAT 92
[2017-02-17] MEDS: OXYCODONE HCL IR 5 MG TAB (IMMEDIATE RELEASE) PO PRN (16:27)
[2017-02-17] MEDS ORDERED: CPR500 PO ×2 (16:28→16:57)
[2017-02-17] MEDS ORDERED: SULF800T23 PO ×2 (16:28→16:57)
--- NOTE | 2017-02-17 16:34 | Progress Note ---
Subjective Date of Service: February 17, 2017. Subjective Pt evaluation today including: conversation w/ patient, physical exam, lab review, review of studies, review of inpatient medication list Saw/examined the patient in room 352 No problems/issues, pain controlled, ready to get to [facility] Problem List Medical Problems: (1) Acute kidney injury Status: Acute (2) Anemia Status: Acute (3) Failure of outpatient treatment Status: Acute (4) Gangrene of lower extremity Status: Acute (5) Left leg cellulitis Status: Acute (6) Leg pain, left Status: Acute (7) Occlusion of artery of leg Status: Acute (8) Sepsis Status: Acute Review of Systems Constitutional: No chills, No fever Respiratory: No shortness of breath Cardiac: No chest pain Abdomen: No constipation, No diarrhea, No nausea, No pain, No vomiting Musculoskeletal: No joint pain Medications Current Inpatient Medications Medications (Trade) Dose Ordered Sig/Connor Route Start Time Stop Time Status Last Admin Dose Admin Ondansetron HCl (Zofran Inj) 4 mg ONE PRN IV 02/14/17 13:00 Labetalol HCl (Normodyne IV) 5 mg Q5M PRN IV 02/14/17 13:00 Oxycodone HCl (Roxicodone Immediate Rel Tab) 1-2 TABS FOR PAIN 1 TABLET ... Q4H PRN PO 02/14/17 16:45 02/28/17 16:44 02/17/17 16:27 10 MG Morphine Sulfate (MoRPHine SULFATE INJ) If PO analgesic is order... Q2H PRN IV 02/14/17 16:45 02/28/17 16:44 02/15/17 17:34 2 MG Acetaminophen (Tylenol Tab) 650 mg Q6H PRN PO 02/14/17 16:45 03/16/17 16:44 Magnesium Hydroxide (Milk Of Magnesia Susp) 30 ml Q6H PRN PO 02/14/17 16:45 03/16/17 16:44 Bisacodyl (Dulcolax Supp) 10 mg DAILY PRN IN 02/14/17 16:45 03/16/17 16:44 Sodium Biphosphate/ Sodium Phosphate (Fleet Enema) 132 ml DAILY PRN IN 02/14/17 16:45 03/16/17 16:44 Docusate Sodium (coLACE CAP) 100 mg BID PO 02/14/17 21:00 03/16/17 20:59 02/17/17 08:45 100 MG Ondansetron HCl (Zofran Inj) 4 mg Q6H PRN IV 02/14/17 16:45 03/16/17 16:44 Enoxaparin Sodium (Lovenox Inj) 30 mg Q12H SQ 02/15/17 09:00 03/15/17 08:59 02/17/17 08:46 30 MG Alprazolam (Xanax Tab) 0.5 mg TID PRN PO 02/14/17 16:45 03/16/17 16:44 02/16/17 20:39 0.5 MG Amitriptyline HCl (Elavil Tab) 75 mg HS PO 02/14/17 21:00 03/16/17 20:59 02/16/17 20:43 75 MG Aspirin (Ecotrin Tab) 81 mg QAM PO 02/15/17 09:00 03/17/17 08:59 02/17/17 08:45 81 MG Atorvastatin Calcium (Lipitor Tab) 20 mg QPM PO 02/14/17 21:00 03/16/17 20:59 02/16/17 20:44 20 MG Carvedilol (Coreg Tab) 6.25 mg BID PO 02/14/17 21:00 03/16/17 20:59 02/17/17 08:45 6.25 MG Citalopram Hydrobromide (celeXA TAB) 20 mg DAILY PO 02/15/17 09:00 03/17/17 08:59 02/17/17 08:46 20 MG Ferrous Sulfate (Feosol Tab) 325 mg BID PO 02/14/17 21:00 03/16/17 20:59 02/17/17 08:45 325 MG Lactobacillus Acidophilus (Floranex Tab) 2 tab BID PO 02/14/17 21:00 03/16/17 20:59 02/17/17 08:45 2 TAB Multivitamins (Multivitamin Tab) 1 tab DAILY PO 02/15/17 09:00 03/17/17 08:59 02/17/17 08:45 1 TAB Oxycodone HCl (Oxycontin Tab) 60 mg Q12 PO 02/14/17 21:00 02/28/17 20:59 02/17/17 08:45 60 MG Trazodone HCl (Desyrel Tab) 50 mg HS PO 02/14/17 21:00 03/16/17 20:59 02/16/17 20:45 50 MG Calcium Carbonate (oS-Zi 500 TAB) 1,250 mg DAILY PO 02/15/17 09:00 03/17/17 08:59 02/17/17 08:45 1,250 MG Miscellaneous Information 1 ea 1 ea QS N/A 02/15/17 00:00 03/17/17 00:00 Daptomycin 300 mg/ Sodium Chloride 56 ml @ 100 mls/hr DAILY@1200 IV 02/15/17 12:30 02/25/17 12:29 02/17/17 11:51 100 MLS/HR Piperacillin Sod/ Tazobactam Sod/ Dextrose (Zosyn Iv/D5 100ml) 115 ml @ 28.75 mls/ hr Q8H IV 02/15/17 18:00 02/25/17 17:59 02/17/17 09:48 28.75 MLS/HR Piperacillin Sod/ Tazobactam Sod (Consult) 1 ea UD PRN N/A 02/15/17 12:45 03/17/17 12:44 Objective Vital Signs Date Time Temp Pulse Resp B/P Pulse Ox O2 Delivery O2 Flow Rate FiO2 02/17/17 16:00 37.1 73 18 92 Room Air 02/17/17 15:46 37.1 73 18 100/61 92 Room Air 02/17/17 07:43 Room Air 02/17/17 07:00 36.7 69 16 104/57 93 Room Air 02/17/17 00:06 Room Air 02/16/17 23:53 73 93/54 02/16/17 23:35 36.7 73 18 82/45 92 Room Air 02/16/17 21:00 Room Air 02/16/17 20:38 81 113/66 Physical Exam General Appearance: no apparent distress Respiratory/Chest: no respiratory distress, no accessory muscle use Cardiovascular: regular rate, rhythm, no edema Extremities: + pertinent finding (L through knee amputation) Laboratory Results Last 24 Hours Test 02/17/17 06:54 02/17/17 13:53 White Blood Count 5.22 K/uL Red Blood Count 2.55 M/uL Hemoglobin 7.2 g/dL 8.1 g/dL Hematocrit 23.0 % 25.0 % Mean Corpuscular Volume 90.2 fL Mean Corpuscular Hemoglobin 28.2 pg Mean Corpuscular Hemoglobin Concent 31.3 g/dl RDW Standard Deviation 50.9 fL RDW Coefficient of Variation 15.4 % Platelet Count 226 K/uL Mean Platelet Volume 8.8 fL Sodium Level 141 mmol/L Potassium Level 4.1 mmol/L Chloride Level 106 mmol/L Carbon Dioxide Level 30 mmol/L Anion Gap 5.0 mmol/L Blood Urea Nitrogen 10 mg/dl Creatinine 0.64 mg/dl Est Creatinine Clear Calc Drug Dose 81.5 ml/min Estimated GFR () 107.8 Estimated GFR (Non- 93.0 BUN/Creatinine Ratio 15.3 Random Glucose 85 mg/dl Calcium Level 8.3 mg/dl Assessment and Plan This is a 67 year old female with a PMH of HTN, HLD, depression/anxiety, hx. of lymphosarcoma of the L leg; multiple infections of the L LE; presents for a L through knee amputation L Through Knee Amputation 02/17 POD #3 pain controlled Hgb up to 8.1 this afternoon no other issues to note plan for d/c to [facility] later today 02/16 POD #2 doing well plan for discharge to rehab, she wants to stay one extra day and be discharged on 02/17; will leave it up to orthopedics 02/15 POD #1 doing well post-operatively pain controlled good PO intake further management as per ortho Anemia 02/16 Hgb drop to 7.4 will monitor, transfuse PRN for symptoms or < 7 02/15 multifactorial: iron deficiency, acute blood loss, etc. Hgb dropped from 8.9 to 7.8, expected post-operatively no need for transfusion, keep Hgb > 7, will monitor HTN blood pressure stable continue Coreg HLD continue statin DVT ppx as per ortho FULL CODE d/c as per ortho
--- NOTE | 2017-02-17 18:34 | DISCHARGE SUMMARY ---
ADMISSION DIAGNOSES: 1. Nonhealing wound of her left lower extremity. 2. Pressure ulcer of the left heel, stage 4 present on admission and a chronic nonhealing wound to the left lower extremity, status post revascularization and prior skin graft surgery in the setting of peripheral artery disease and peripheral neuropathy. 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 ATTENDING PHYSICIAN: Dr. Bolivar Renner, orthopedic surgery. 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 HOSPITAL COURSE: The patient was admitted on 02/14/2017 after undergoing through knee amputation of the left lower extremity with Dr. Renner, assisted by Mariama Henderson PA-C. She was given IV tobramycin and daptomycin prior to surgery for antibiotic prophylaxis. Her surgery was performed with general anesthesia and peripheral nerve block. She tolerated that procedure well without any intraoperative complications. She did have 450 mL of blood loss intraoperatively and transfusion of 1 unit packed red blood cells was started in the operating room. She tolerated the transfusion without any complications. She was awakened and transferred to the recovery room without any difficulty. She was given IV morphine, Percocet, tramadol, and Tylenol as needed for pain. Instructions were provided for ice and elevation. She was allowed out of bed and nonweightbearing the left lower extremity with the assistance of a walker. She was provided a regular diet. Consults for medicine and infectious disease were placed. She was seen by medicine on postoperative day 0. Her current in-home medications were continued. She had some mild urinary retention on postoperative day 0 and a straight cath p.r.n. was ordered. She was placed on Lovenox 30 mg p.o. b.i.d. for postoperative DVT prophylaxis. She was also placed in a LOR stocking with AV foot pumps on her Right lower extremity. A consult was placed for physical therapy and occupational therapy. She did well out of bed. She was also followed by case management and social welfare research worker for disposition. It was determined that she would need inpatient rehab. She requested [facility] and insurance authorization and bed availability were obtained. On postoperative day #2, dressings were changed. Her incision was clean, dry and intact with minimal drainage. New dressings were applied. She tolerated the dressing change well. Her postoperative pain management was managed well on oral pain medication. She was pleased with how little pain she was having. She was also continued on IV tobramycin and daptomycin postoperatively for 3 days as per infectious disease. She did develop acute blood loss anemia, which was monitored and no further transfusions were needed during her hospital stay. Her dressings were also changed on postoperative day #3 with no drainage on the dressings. Her incision was clean, dry and intact. New dressings were applied. She was cleared for [facility]. There was a bed available for Monday. She was safe for discharge and her son transported her to [facility]. DISCHARGE CONDITION: Stable. DISPOSITION: Discharge to [facility]. DISCHARGE MEDICATIONS: Include, 1. Cipro 500 mg 1 tab p.o. b.i.d. x7 days. 2. Colace 100 mg p.o. b.i.d. 3. Lovenox 30 mg subQ b.i.d. x14 days. 4. Bactrim 1 tab p.o. b.i.d. x7 days. DISCHARGE INSTRUCTIONS: Discharge instructions were provided and they are in her electronic health record. Instructions included nonweightbearing, left lower extremity with the assistance of walker for ambulation. She can be out of bed as tolerated. Dressing changes daily and p.r.n. She can shower on postoperative day #4 and redress the incision. Recommended ice and elevation as needed for pain and swelling. Regular diet. Antibiotics as recommended by infectious disease and as ordered. Lovenox for DVT prophylaxis. Follow up with Dr. Renner and [facility] as scheduled. Otherwise, please see electronic health record for further instructions. FOLLOWUP APPOINTMENTS: Follow up on 02/22/2017 at 12:15 p.m. and follow up with Dr. Renner on 03/03/2017 at 09:00 a.m. [facility]Chris
[2017-06-12] MEDS ORDERED: OXYC-739 PO (17:30)
== END 2017-02-17 17:49 | DRG 579 ==
LOC: ENRESERVDT → ENRESERVTM → C.ACU 10:09 → C.MSW 13:00
PROVIDERS: ADMIT Physical Medicine & Rehabilitation Sports Medicine; ATTEND Physical Medicine & Rehabilitation Sports Medicine
PROC: 0Y6G0ZZ Detachment at Left Knee Region, Open Approach (ICD-10-PCS; principal; 2017-02-14 12:00)
DX: S81.802A Unspecified open wound, left lower leg, initial encounter (principal); L89.624 Pressure ulcer of left heel, stage 4; T86.828 Other complications of skin graft (allograft) (autograft); I73.9 Peripheral vascular disease, unspecified; I10 Essential (primary) hypertension; F41.9 Anxiety disorder, unspecified; F32.9 Major depressive disorder, single episode, unspecified; Z79.82 Long term (current) use of aspirin; Y83.8 Other surgical procedures as the cause of abnormal reaction of the patient, or of later complication, without mention of misadventure at the time of the procedure; X58.XXXA Exposure to other specified factors, initial encounter

== ENCOUNTER → 2017-04-12 | Outpatient (CLI) | payer OTHER ==
[~2017-04-12] MED LIST changes: +CLC100 PO; +CPR500 PO; -DAPTOmycin IV 275 MG in SODIUM CHLORIDE 0.9% 50ML 50 ML IV SCH; -LACTATED RINGER'S 1000ML 1,000 ML IV SCH; +LVNIS30 SQ; +MELO7.5T5 PO; +OXYC-653 PO; -PATIENT'S HEIGHT AND/OR WEIGHT NEEDED SCH; -SULF-183 PO; +SULF800T23 PO; -TOBRAMYCIN IV; -TOBRAMYCIN SULF INJ 420 MG in DEXTROSE 5% 100ML 100 ML IV SCH
== END | disposition home or self-care (01) ==
LOC: C.RDSM 14:27
PROVIDERS: ATTEND Physical Medicine & Rehabilitation Sports Medicine
DX: Z89.522 Acquired absence of left knee (principal)

== ENCOUNTER 2017-06-12 15:03 | Emergency (ER) | payer OTHER ==
[~2017-06-12] VITALS: Ht 162.6 cm; Wt 67.0 kg
[~2017-06-12 15:03] MED LIST changes: -MELO7.5T5 PO; -OXYC-653 PO
[2017-06-12 15:06] VITALS: TEMP 36.9; Ht 162.6 cm; Wt 67.0 kg
[2017-06-12] MEDS ORDERED: HYDROmorphone INJ 1 MG/ML SYR IM STA (15:29)
--- NOTE | 2017-06-12 16:04 | DIAGNOSTIC IMAGING REPORT ---
CERVICAL SPINE W/O CLINICAL HISTORY: 67 years-old Female presenting with neck pain, radiation into right arm. TECHNIQUE: Multidetector CT of the cervical spine was performed without the use of intravenous contrast. IV contrast: None. A dose lowering technique was used consistent with the principles of ALARA (as low as reasonably achievable). COMPARISON: None. CT DOSE (mGy.cm): The estimated cumulative dose is 275.39 mGy.cm. FINDINGS: [employer] topogram: Unremarkable. Normal cervical lordosis. No acute fracture or subluxation. Mild degenerative changes focally at C5-6 and C6-7 with small disc osteophyte complexes. Vertebral bodies maintain normal height and alignment. Mild intervertebral disc height loss at the C5-6 and C6-7 levels. Mild osseous neural foraminal narrowing also suggested at C5-6 and C6-7, primarily due to uncovertebral hypertrophy. Regional soft tissues within normal limits. Lung apices clear. IMPRESSION: 1. No acute osseous injury of the cervical spine. 2. Mild degenerative changes at C5-6 and C6-7 with mild osseous neural foraminal narrowing. Electronically signed by: Bolivar Correia M.D. 06/12/2017 4:02 PM Dictated Date/Time: 06/12/2017 4:00 PM
--- NOTE | 2017-06-12 17:09 | EMERGENCY ROOM VISIT NOTE ---
ED Visit Note First contact with patient: 15:14 Patient seen and examined at bedside. Repeat bedside blood pressure 185/83. Discussed with patient her elevated blood pressure as well as her increased neck and arm pain recently. Patient scheduled for outpatient MRI next week. Pt with chronic neck and back pain, worsening sx recently despite meds. Doubt cva, dissection, occult infectious etiology. Has previously seen pain management as well. Patient does take chronic narcotics daily.
[2017-06-12 17:16] VITALS: BP 183/85; PULSE 65; O2SAT 97
--- NOTE | 2017-06-12 17:27 | EMERGENCY ROOM VISIT NOTE ---
History First contact with patient: 15:14 Chief Complaint: NECK PAIN Stated Complaint: PAIN IN NECK, BACK AND RIGHT ARM History of Present Illness The patient is a 67 year old female who presents to the Emergency Room with complaints of right sided neck, shoulder and arm pain which has been ongoing for 3-4 weeks. The patient states that she has had similar symptoms in the past which resolved after a course of prednisone. She was seen by a PA in her orthopedist office on May 24 and prescribed prednisone. She states she has had no relief with this. She saw her primary care provider and was prescribed meloxicam and states this has also not helped her pain. The pain radiates from the right side of her neck into her right shoulder and arm. She states it is a constant pain. She has difficulty sleeping due to the pain. She rates the discomfort a 10/10. She states that the pain has not worsened since it started , but it has not improved. She denies any chest pain or shortness of breath. The patient denies any numbness or weakness in her right arm. Review of Systems A complete 10 point review of systems was reviewed with the patient with pertinent positives and negatives as per history of present illness. All else were negative. 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 Surgical Problems: (1) S/P section (2) S/p left ankle surgery (3) S/p left hip surgery (4) S/P lumbar spinal fusion (5) s/p resection sarcoma left thigh (6) S/P tonsillectomy and adenoidectomy Family History DVT FATHER FH: CAD (coronary artery disease) MOTHER ([place] age 70) FH: pulmonary embolism SISTER Social History Smoking Status: Former Smoker Alcohol Use: none Drug Use: none Marital Status: Housing Status: lives with family Occupation Status: retired Current/Historical Medications Scheduled Alprazolam (Alprazolam), 0.5 MG PO TID Amitriptyline Hcl (Elavil), 3 TAB PO HS Aspirin (Aspirin Ec), 81 MG PO QAM Atorvastatin (Lipitor), 20 MG PO QPM Calcium Carbonate (Calcium 600), 600 MG PO DAILY Carvedilol (Coreg), 1 TAB PO BID Citalopram Hydrobromide (Citalopram Hydrobromide), 20 MG PO DAILY Ferrous Sulfate (Ferrous Sulfate), 325 MG PO BID Fish Oil ([place]-3), 4 CAP PO DAILY Meloxicam (Mobic), 7.5 MG PO DAILY Multivitamin (Multivitamin), 1 TAB PO DAILY Oxycodone HCl (Oxycodone HCl ER), 20 MG PO BID Physical Exam Vital Signs Date Time Temp Pulse Resp B/P (MAP) Pulse Ox O2 Delivery O2 Flow Rate FiO2 06/12/17 17:16 65 16 183/85 97 Room Air 06/12/17 16:23 68 18 208/89 98 Room Air 06/12/17 15:06 36.9 76 16 211/97 97 Room Air Physical Exam VITALS: Vitals are noted on the nurse's note and reviewed by myself. Vital signs stable. GENERAL: This is a 67-year-old female, in no acute distress, nondiaphoretic, well-developed well-nourished. SKIN: The skin was without rashes, erythema, edema, or bruising. EARS: External auditory canals clear, tympanic membranes pearly goodman without erythema or effusion bilaterally. EYES: Pupils equal round and reactive to light and accommodation. NECK: Supple without nuchal rigidity. No lymphadenopathy. Cervical spine is nontender. HEART: Regular rate and rhythm without murmurs gallops or rubs. LUNGS: Clear to auscultation bilaterally without wheezes, rales or rhonchi. MUSCULOSKELETAL: There is no tenderness to palpation of the neck. There is mild tenderness over the trapezius muscle. Full range of motion of bilateral upper extremities. Strength 5/5 in upper extremities. Reflexes 2+. NEURO: Patient was alert and oriented to person place and time. Normal sensation to light and sharp touch. Deep tendon reflexes 2+ throughout. No focal neurological deficits. Medical Decision & Procedures ER Provider Diagnostic Interpretation: CERVICAL SPINE W/O CLINICAL HISTORY: 67 years-old Female presenting with neck pain, radiation into right arm. TECHNIQUE: Multidetector CT of the cervical spine was performed without the use of intravenous contrast. IV contrast: None. A dose lowering technique was used consistent with the principles of ALARA (as low as reasonably achievable). COMPARISON: None. CT DOSE (mGy.cm): The estimated cumulative dose is 275.39 mGy.cm. FINDINGS: Rn Perioperative topogram: Unremarkable. Normal cervical lordosis. No acute fracture or subluxation. Mild degenerative changes focally at C5-6 and C6-7 with small disc osteophyte complexes. Vertebral bodies maintain normal height and alignment. Mild intervertebral disc height loss at the C5-6 and C6-7 levels. Mild osseous neural foraminal narrowing also suggested at C5-6 and C6-7, primarily due to uncovertebral hypertrophy. Regional soft tissues within normal limits. Lung apices clear. IMPRESSION: 1. No acute osseous injury of the cervical spine. 2. Mild degenerative changes at C5-6 and C6-7 with mild osseous neural foraminal narrowing. Medications Administered Medications (Trade) Dose Ordered Sig/Connor Route Start Time Stop Time Status Last Admin Dose Admin Hydromorphone HCl (Dilaudid Inj) 1 mg NOW STAT IM 06/12/17 15:29 06/12/17 15:31 DC 06/12/17 15:44 1 MG ED Course The patient was evaluated as above. Patient was medicated with [address] of the cervical spine was performed and read by radiology as above. Patient was reevaluated and findings were discussed with the patient. She stated she felt better after receiving the Dilaudid. Discharge instructions were reviewed with the patient. The patient verbalized understanding of my assessment and treatment plan and was discharged home in good condition. Medical Decision Differential diagnosis includes herniated disc, discitis, osteomyelitis, ACS, aortic dissection, muscle strain, rotator cuff injury, among others. The patient is a 67-year-old female who presents today complaining of pain radiating from the right neck into the shoulder and arm. History and exam is most consistent with cervical radiculopathy. CT of the cervical spine shows some disc space narrowing, but no concerning findings. Patient was treated with Dilaudid with some relief. She has had similar symptoms in the past secondary to cervical disc disease. The patient's blood pressure was significantly elevated on her presentation. She does take medication for her blood pressure, but states that her blood pressure has been higher than usual recently. She is planning to follow up with her primary care provider regarding this. Patient's blood pressure did improve after pain control, but was still elevated and will require follow-up with her primary care provider. I do not suspect a cardiac source of the patient's pain, as her pain has been constant for several weeks and she has no chest pain or shortness of breath. There are no neurological findings to suggest CVA or vertebral artery dissection. I had a lengthy discussion with the patient, who was requesting that she would be admitted for urgent surgery. I explained to her that this was not indicated and did have case management speak with the patient. They will contact [facility] tomorrow to make the patient an appointment in the office to discuss her neck pain. Based on the patient's presentation and work up, I feel the patient is stable for outpatient treatment. The patient was educated to return to the emergency department for any worsening of their current condition or new/concerning symptoms. She will follow up with orthopedics. The patient was independently evaluated by Dr. Smith, ED attending physician , who agreed with my assessment and treatment plan. Medication Reconcilliation Current Medication List: was personally reviewed by me Blood Pressure Screening Patient's blood pressure: Elevated blood pressure Blood pressure disposition: Referred to PCP Impression Primary Impression: Cervical radiculopathy Departure Information Dispostion Home / Self-Care Condition GOOD Referrals Rico Jeffery D.O. (PCP) Patient Instructions [facility] Additional Instructions Case management will call [facility] to arrange a follow-up appointment tomorrow. They will contact you regarding this. Continue your medications at home. You may apply heating pad to the area, which may give you some soothing relief. Follow-up with your primary care provider this week.
[2017-06-12] MEDS ORDERED: MELO7.5T5 PO (17:30)
[2017-06-12] MEDS ORDERED: ALPR-411 PO (17:30)
[2017-06-12] MEDS ORDERED: OXYC-653 PO (17:30)
== END 2017-06-12 17:46 | disposition home or self-care (01) ==
LOC: C.EDB 15:04 → C.EDC 17:46
DX: M54.12 Radiculopathy, cervical region (principal); G89.29 Other chronic pain; I10 Essential (primary) hypertension; E78.5 Hyperlipidemia, unspecified; F41.9 Anxiety disorder, unspecified; I73.9 Peripheral vascular disease, unspecified; M81.0 Age-related osteoporosis without current pathological fracture; F32.9 Major depressive disorder, single episode, unspecified; Z87.81 Personal history of (healed) traumatic fracture; Z86.14 Personal history of Methicillin resistant Staphylococcus aureus infection; Z86.19 Personal history of other infectious and parasitic diseases; Z98.1 Arthrodesis status; Z98.890 Other specified postprocedural states; Z87.891 Personal history of nicotine dependence; Z79.82 Long term (current) use of aspirin; Z79.899 Other long term (current) drug therapy; Z82.49 Family history of ischemic heart disease and other diseases of the circulatory system

== ENCOUNTER 2021-12-31 13:26 | Observation (INO) ==
[2021-12-31] MEDS ORDERED: SODIUM CHLORIDE 0.9% 1000ML 1,000 ML IV ONE (14:11)
--- NOTE | 2021-12-31 14:16 | Emergency Department Note ---
History of Present Illness General Chief complaint: Dizziness Time Seen by Provider: 12/31/21 13:59 Source: patient, family, RN notes reviewed, old records reviewed and other (I talked to her colorectal surgeon) Mode of arrival: EMS Limitations: no limitations History of Present Illness This patient is a 71-year-old female who comes in complaining of an episode of dizziness and lightheadedness. She was at Dr. Ochoa's office who is her colorectal surgeon. She has been having trouble with her ostomy for the last week and a half where she had a large amount of intestine sticking out. Their plan to do surgery. She said she felt like there is gas in her stomach while she was at the office and she got lightheaded. She also got diaphoretic. She was pale looking so they sent her over here. This episode lasted about 1/2- hour. She feels better at present. She denies any shortness of breath or urinary symptoms. She felt weak all over at the time but nonfocal she is feeling better now. She has had normal ostomy output she has a large amount of colon within her ostomy bag which has been this way for multiple weeks and thus the reason he saw Dr. Ochoa today. I did talk to Dr. Ochoa and he said there is nothing to worry about from that standpoint there is no acute issues. He is going to operate on her in the future. The patient says she occasionally has some blood in her bag after she changes her ostomy site but otherwise no blood in her stool she had no spinning she no difficulty speaking or swallowing. She is on no blood thinners besides aspirin. No urinary symptoms. No focal numbness or weakness. No change in vision no headache neck pain or stiffness no trauma or injury. Denies chest pain or shortness of breath or cough. She is up-to-date on her Covid vaccine. Home Medications Medication Instructions Recorded Confirmed Type atorvastatin 20 mg tablet 20 mg PO HS tab 05/21/19 12/31/21 History oxycodone 20 mg tablet,crush 20 mg PO Q12H 06/25/19 12/31/21 History resistant,extended release 12 hr (OxyContin) aspirin 81 mg chewable tablet 81 mg PO BID 06/18/20 12/31/21 History hydrochlorothiazide 12.5 mg tablet 12.5 mg PO QAM 06/18/20 12/31/21 History hydrocodone 5 mg-acetaminophen 325 1 tab PO Q8H PRN 06/18/20 12/31/21 History mg tablet multivitamin 1 tab PO QAM 06/18/20 12/31/21 History amlodipine 10 mg tablet (Norvasc) 10 mg PO QAM 06/19/20 12/31/21 History buspirone 10 mg tablet 10 mg PO BID 06/19/20 12/31/21 History tizanidine 4 mg tablet (Zanaflex) 4 mg PO HS PRN 06/19/20 12/31/21 History valsartan 80 mg tablet 80 mg PO QAM 08/13/20 12/31/21 History acetaminophen 650 mg 650 mg PO Q8H PRN 12/31/21 12/31/21 History tablet,extended release (Tylenol 8 Hour) amitriptyline 25 mg tablet 75 mg PO HS 12/31/21 12/31/21 History docusate sodium 100 mg capsule 100 mg PO BID 12/31/21 12/31/21 History (Colace) omega 2-ljr-grp-fish oil 1,000 mg See Rx Instructions .ROUTE .COMPLEX 12/31/21 12/31/21 History (120 mg-180 mg) capsule (Fish Oil) polysaccharide iron complex 150 mg 150 mg PO 2XWK 12/31/21 12/31/21 History iron capsule 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[employer] Past Med/Surg History Medical History Bile duct stone Hearing deficit BL FABIAN History of anxiety Hx of sarcoma of bone LLE; h/o surgery, radiation treatment 1989 Hyperlipidemia Hypertension Osteoarthritis PAD (peripheral artery disease) PFO (patent foramen ovale) Presence of pessary Surgical History History of ankle surgery Left History of cancer surgery LLE History of carpal tunnel release Right History of section X 1 History of cholecystectomy lap [place]: 07/20/20: Grade view 3, MAC#3.0, ETT 7.0 at [facility] History of colonoscopy History of elbow surgery Left History of ERCP History of hip surgery x 2 - Left History of lumbar surgery x2 History of tonsillectomy and adenoidectomy 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) Family History Mother Anxiety Cardiac disorder Father Cardiac disorder Myocardial infarction Hypertension Grandmother (Maternal) Diabetes Other No family history of adverse response to anesthesia Social History Smoking Status: Former smoker Second Hand Exposure: No; Hx Alcohol Use: No Hx Substance Use: No Preferred Language: Swedish Communication Ability: Effective 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 Beliefs That Will Affect Care: None Current Living Situation: Spouse Feels Safe at Home: Yes Assistive Devices: Denture - Upper, Glasses and Hearing Aid - Bilateral Review of Systems A total of 10 systems reviewed and were otherwise negative Physical Exam Vital Signs Vital Signs - 24 hr 12/31/21 13:20 12/31/21 15:20 Temperature 36.8 C Temperature Source Oral Pulse Rate 80 Pulse Rate [Finger] 80 84 Respiratory Rate 20 16 Blood Pressure 117/68 Blood Pressure [Left Arm] 104/47 L Blood Pressure Mean 84 Blood Pressure Mean [Left Arm] 66 Pulse Oximetry 98 96 Oxygen Delivery Method Room Air Sepsis Recent Fever Within 48 Hours No Sepsis New/Unexplained Change in Mental Status No Sepsis Action Taken by Nursing No Action Required General: Well developed well nourished ill-appearing older female who in no acute distress, breathing comfortably on room air. Normal speech HEENT: Normal cephalic atraumatic. Pupils are equal round and reactive to light. Extraocular movements are intact. Oropharynx is pink with moist mucous membranes. No swelling of the mouth lips or tongue. Neck: Supple with a midline trachea. No meningeal signs or stiffness, no JVD or bruits. No Stridor. Chest: Clear to auscultation bilaterally. No wheezes or rhonchi. No increased work of breathing. Heart: Regular rate and rhythm without murmurs or gallops. Abdomen: Soft nontender, nondistended without rebound guarding or rigidity. There is an an ostomy bag in place that has a large amount of: Within it. No active bleedind Extremities: No cyanosis clubbing or edema. No calf tenderness or assymetry Spine/Back. Non tender to palpation. No CVA tenderness Skin: Good turgor without rashes. Neurologic exam: Cranial nerves two through 12 are intact. Motor and sensation are intact and symmetrical throughout. Course Administered Medications Discontinued Medications Sodium Chloride (Nss 1000ml) 1,000 mls @ 999 mls/hr IV .Q1H1M ONE Stop: 12/31/21 15:11 Last Infusion: 12/31/21 15:26 Dose: 0 mls/hr Documented by: [id number] Admin: 12/31/21 14:26 Dose: 999 mls/hr Documented by: [id number] Sodium Chloride (Nss 1000ml) 500 mls @ 999 mls/hr IV .Q31M ONE Stop: 12/31/21 16:24 Last Admin: 12/31/21 16:41 Dose: 999 mls/hr Documented by: [id number] Ioversol (Optiray 320 100ml) 91 ml IV ONCE ONE Stop: 12/31/21 15:02 Last Admin: 12/31/21 15:02 Dose: 91 ml Documented by: [id number] Medical Decision Making Differential Diagnosis Syncope, anemia, neurologic disease, arrhythmia, acute coronary syndrome, infection, electrolyte or metabolic abnormality, bowel obstruction, ostomy complication Medical Records Attestation: I reviewed the patient's medical records. Home Medications Current Medication List: was personally reviewed by me Laboratory Data Attestation: I reviewed the patient's lab results. Result diagrams: 12/31/21 14:09 12/31/21 14:09 Lab Results 12/31/21 12/31/21 12/31/21 Range/Units 14:09 14:09 16:13 WBC 8.30 (4.8-10.8) K/uL RBC 4.05 L (4.2-5.4) M/uL Hgb 11.7 L (12.0-16.0) g/dL Hct 34.8 L (37-47) % MCV 85.9 (80-100) fL MCH 28.9 (25-34) pg MCHC 33.6 (32-36) g/dL RDW Std Deviation 42.7 (36.4-46.3) fL RDW Coeff of Leslie 13.4 (11.5-14.5) % Plt Count 337 (130-400) K/uL MPV 10.0 (7.4-10.4) fL Immature Gran % (Auto) 0.2 % Neut % (Auto) 77.0 % Lymph % (Auto) 13.3 % [place] % (Auto) 6.7 % Eos % (Auto) 2.4 % Baso % (Auto) 0.4 % Neut # (Auto) 6.39 (1.4-6.5) K/uL Lymph # (Auto) 1.10 L (1.2-3.4) K/uL [place] # (Auto) 0.56 (0.11-0.59) K/uL Eos # (Auto) 0.20 (0-0.5) K/uL Baso # (Auto) 0.03 (0-0.2) K/uL Immature Gran # (Auto) 0.02 (0.00-0.02) K/uL Sodium 136 (136-145) mmol/L Potassium 3.8 (3.5-5.1) mmol/L Chloride 99 (98-107) mmol/L Carbon Dioxide 28 (21-32) mmol/L Anion Gap 9 (3-11) BUN 26 H (6-23) mg/dl Creatinine 0.81 (0.6-1.2) mg/dl Est Cr Clr Drug Dosing 55.8 ml/min Est GFR ( Amer) 85.3 ml/min Est GFR (Non-Af Amer) 73.6 ml/min BUN/Creatinine Ratio 32.1 H (10-20) Glucose 147 H (70-99(Fasting)) mg/dl Lactate 1.0 (0.4-2.0) mmol/L Calcium 9.2 (8.5-10.1) mg/dl Total Bilirubin 0.2 (0.2-1.0) mg/dl AST 14 (13-39) U/L ALT 13 (7-52) U/L Alkaline Phosphatase 95 (34-104) U/L Troponin I < 0.03 (0-0.04) ng/ml Total Protein 7.3 (6.0-8.3) gm/dl Albumin 3.7 (3.4-5.0) gm/dl Globulin 3.6 (2.5-4.0) gm/dl Albumin/Globulin Ratio 1.0 (0.9-2) Lipase 14 (11-82) U/L SARS-CoV-2, RNA, NAAT (NEGATIVE) 12/31/21 Range/Units 16:41 WBC (4.8-10.8) K/uL RBC (4.2-5.4) M/uL Hgb (12.0-16.0) g/dL Hct (37-47) % MCV (80-100) fL MCH (25-34) pg MCHC (32-36) g/dL RDW Std Deviation (36.4-46.3) fL RDW Coeff of Leslie (11.5-14.5) % Plt Count (130-400) K/uL MPV (7.4-10.4) fL Immature Gran % (Auto) % Neut % (Auto) % Lymph % (Auto) % [place] % (Auto) % Eos % (Auto) % Baso % (Auto) % Neut # (Auto) (1.4-6.5) K/uL Lymph # (Auto) (1.2-3.4) K/uL [place] # (Auto) (0.11-0.59) K/uL Eos # (Auto) (0-0.5) K/uL Baso # (Auto) (0-0.2) K/uL Immature Gran # (Auto) (0.00-0.02) K/uL Sodium (136-145) mmol/L Potassium (3.5-5.1) mmol/L Chloride (98-107) mmol/L Carbon Dioxide (21-32) mmol/L Anion Gap (3-11) BUN (6-23) mg/dl Creatinine (0.6-1.2) mg/dl Est Cr Clr Drug Dosing ml/min Est GFR ( Amer) ml/min Est GFR (Non-Af Amer) ml/min BUN/Creatinine Ratio (10-20) Glucose (70-99(Fasting)) mg/dl Lactate (0.4-2.0) mmol/L Calcium (8.5-10.1) mg/dl Total Bilirubin (0.2-1.0) mg/dl AST (13-39) U/L ALT (7-52) U/L Alkaline Phosphatase (34-104) U/L Troponin I (0-0.04) ng/ml Total Protein (6.0-8.3) gm/dl Albumin (3.4-5.0) gm/dl Globulin (2.5-4.0) gm/dl Albumin/Globulin Ratio (0.9-2) Lipase (11-82) U/L SARS-CoV-2, RNA, NAAT NEGATIVE (NEGATIVE) Imaging Data Attestation: I personally reviewed and interpreted this imaging study as follows: My Impression: Chest xray-no acute infiltrate, failure, pneumothorax seen Radiologist's Impression: Abdomen/Pelvis CT 12/31/21 14:11 CT SCAN OF THE ABDOMEN AND PELVIS WITH IV CONTRAST CLINICAL HISTORY: Generalized abdominal pain. COMPARISON STUDY: CT scan of the left hip dated 10/29/2020. Radiographs of the left hip dated 04/12/2017. TECHNIQUE: Following the IV administration of 91 cc of Optiray 320, CT scan of the abdomen and pelvis is performed from the lung bases to the proximal femora. Images are reviewed in the axial, sagittal, and coronal planes. IV contrast was administered without complication. A dose lowering technique was utilized adhering to the principles of ALARA. The Examination is degraded by streak artifact from extensive metallic spinal hardware. CT DOSE: 515.08 mGycm FINDINGS: Lung bases: The heart is normal in size and without pericardial effusion. There are coronary artery calcifications. Fibrotic change is noted at the lung bases. No airspace consolidation or pleural effusion is identified. Liver: The contrast-enhanced liver is normal in size, contour, and attenuation. There is mild to moderate intrahepatic biliary ductal dilatation. Pneumobilia is noted. The hepatic veins and portal veins are patent. Gallbladder: Surgically absent noting clips in the gallbladder fossa. Spleen: Normal in size and attenuation. Pancreas: Unremarkable. Adrenal glands: Unremarkable. Kidneys: The contrast enhanced kidneys are normal in size and without hydronephrosis. There is heterogeneous enhancement in the upper pole of the left kidney seen on axial image #110. There is a 1.0 cm calculus in the left renal pelvis. There are at least 4 nonobstructing right renal calculi which measure up to 1.0 cm. Foci of cortical scarring are noted in both kidneys. Abdominal vasculature: The abdominal aorta is normal in course and caliber noting advanced atherosclerotic calcification. 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 Bowel: There is postoperative change from left-sided colon resection and right lower quadrant colostomy. A rectosigmoid stump is noted in the pelvis. A large parastomal hernia contains mesenteric fat and a segment of colon. The ostomy appears externally prolapsed, with associated dermal thickening and infiltration. No bowel obstruction is identified. There is moderate to severe fecal retention seen in the right colon. There is laxity of the ventral abdominal wall with protrusion of bowel loops. The appendix is not identified and reported surgically absent. Peritoneum: There is no intraperitoneal free air or abdominal ascites. Lymphadenopathy: None. Pelvic viscera: The bladder is distended but otherwise normal in appearance. The uterus and adnexa are normal as visualized. A fat-containing hernia is noted in the left groin. There is asymmetric atrophy of the left gluteal musculature. Skeletal structures: The skeletal structures are osteopenic. There is chronic posttraumatic deformity of the left proximal femur with intertrochanteric and intramedullary nails in place. Lucency around the intramedullary nail suggests loosening. Arthritic change is noted in the hips. Chronic sclerotic change in the left iliac wing is similar to previous. Overlying soft tissue thickening is noted. There is lumbosacral spondylosis with evidence of L1-S1 spinal fusion. Spinal rods are in place. No lytic or blastic lesions are seen. IMPRESSION: 1. There is postoperative change from left-sided colon resection and right lower quadrant ostomy. 2. No bowel obstruction is identified. 3. The ostomy appears prolapsed, and a parastomal hernia contains mesenteric fat and colon there is also dermal thickening seen throughout the ostomy with mild infiltration. This is of indeterminant chronicity and significance and clinical correlation be required. 4. There is a perfusion defect in the upper pole of left kidney which could BC of infection or could represent a small cortical infarct. Correlation with clinical findings and urinalysis will be essential. 5. Moderate to severe fecal retention is noted in the right colon. 6. There is chronic posttraumatic deformity and postoperative change in the left proximal femur with evidence of hardware loosening. 7. Chronic sclerotic change of the left iliac wing with overlying soft tissue has been present on multiple prior radiographs. Correlated the patient's medical/surgical history. 8. Bilateral nephrolithiasis. 9. 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 10. 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 11. Additional findings as above. ACT 112: Negative or not required by law. Electronically signed by: Elian Barber M.D. 12/31/2021 3:36 PM Chest X-Ray 12/31/21 14:11 XR chest 1V portable CLINICAL HISTORY: Syncope. COMPARISON STUDY: Chest radiograph June 10, 2016. FINDINGS: Lung volumes are normal. Linear left basilar opacity favors atelectasis. There is no pneumothorax or pleural effusion. Cardiac size is normal. Mediastinal contours are normal. There is no evidence for pulmonary edema. IMPRESSION: No acute cardiopulmonary findings. ACT 112: Negative or not required by law. Electronically signed by: Moe Mooney M.D. 12/31/2021 2:37 PM ECG Data Attestation: I personally reviewed and interpreted this ECG as follows: Indication: + weakness Rate (beats per minute): 75 Rhythm: + normal sinus ECG Intervals/blocks: + Normal QRS, + Normal QT and + Normal AL ECG ST segments: + T-wave inversions (Lateral) ECG Findings: + PVCs; no PACs Comparison ECG Date: from (06/19/20) Change: no significant change MDM Narrative Patient comes in as described above. He was placed on a quality assurance monitor body and room a 12. She is here after having an episode where she became very weak. She looks well on exam she has a normal neurologic exam. she is asymptomatic at present she has stable vital signs. IV access was established and I did give her a 1 L IV normal saline bolus. I did order multiple blood testing as well as chest x-ray, EKG, and CAT scan of the abdomen and pelvis. I did call and talk to Dr. Anne, who is the colorectal surgeon she saw today. He said he was not worried about her colon and this could be fixed electively but he was concerned that she was hypotensive and diaphoretic and had a near syncopal episode. Her work-up here does not suggest cardiac disease thus far with a nonischemic EKG compared to old normal troponin and normal electrolytes. I did do a CAT scan there is no evidence of bowel obstruction there is a subtle abnormality of the kidney which she has no kidney or urinary symptoms her urinalysis does not suggest infection. She also has a lot of vascular changes within the mesenteric artery and other arteries so I added a lactic acid it was 1 which makes this unlikely ischemic bowel. I do think she needs to be admitted for observation and further work-up given her syncopal episode. [facility] for these measures. Continuous cardiac monitoring: Orders placed in EMR for continuous cart monitor. Upon my interpretation the patient was noted to be in normal sinus rhythm rate of 70 Impression & Plan Near syncope, Abdominal wall hernia at previous stoma site, Weakness, Lab test negative for COVID-19 virus Discharge Plan Visit Data Chief Complaint: Dizziness ED Provider: Srinivasa Centeno Discharge Problem: Near syncope, Abdominal wall hernia at previous stoma site, Weakness, Lab test negative for COVID-19 virus Patient Disposition: Admitted As Inpatient Discharge Instructions Interventions: ED Discharge Assessment Last Done: 12/31/21 19:31
[2021-12-31 14:24] LABS: Basophils # (auto) 0.03 K/uL (0-0.2); Basophils % (auto) 0.4 %; Eosinophils % (auto) 2.4 %; Hematocrit (blood only) 34.8 % (37-47); Hemoglobin 11.7 g/dL (12.0-16.0); Immature Granulocytes # (auto) 0.02 K/uL (0.00-0.02); Immature Granulocytes % (auto) 0.2 %; Lymphocytes % (auto) 13.3 %; Mean Corpuscular Hemoglobin 28.9 pg (25-34); Mean Corpuscular Hgb Conc 33.6 g/dL (32-36); Mean Corpuscular Volume 85.9 fL (80-100); Monocytes # (auto) 0.56 K/uL (0.11-0.59); Monocytes % (auto) 6.7 %; Neutrophils # (auto) 6.39 K/uL (1.4-6.5); Platelet Count 337 K/uL (130-400); RDW Coefficient of Variation 13.4 % (11.5-14.5); RDW Standard Deviation 42.7 fL (36.4-46.3); Red Blood Count 4.05 M/uL (4.2-5.4)
--- NOTE | 2021-12-31 14:39 | XRay Report ---
XR chest 1V portable CLINICAL HISTORY: Syncope. COMPARISON STUDY: Chest radiograph June 10, 2016. FINDINGS: Lung volumes are normal. Linear left basilar opacity favors atelectasis. There is no pneumo thorax or pleural effusion. Cardiac size is normal. Mediastinal contours are normal. There is no evid ence for pulmonary edema. IMPRESSION: No acute cardiopulmonary findings. ACT 112: Negative or not required by law. Electronically signed by: Moe Mooney M.D. 12/31/2021 2:37 PM
[2021-12-31 14:45] LABS: Troponin I < 0.03 ng/ml (0-0.04)
[2021-12-31 14:46] LABS: Alanine Aminotransferase 13 U/L (7-52); Albumin Level 3.7 gm/dl (3.4-5.0); Alkaline Phosphatase 95 U/L (34-104); Anion Gap 9 (3-11); Aspartate Aminotransferase 14 U/L (13-39); BUN Creatinine Ratio 32.1 (10-20); Bilirubin,Total 0.2 mg/dl (0.2-1.0); Blood Urea Nitrogen 26 mg/dl (6-23); Calcium 9.2 mg/dl (8.5-10.1); Carbon Dioxide 28 mmol/L (21-32); Chloride 99 mmol/L (98-107); Creatinine Clr Calc Pharmacy 55.8 ml/min; Est GFR (African American) 85.3 ml/min; Est GFR (Non-African American) 73.6 ml/min; Globulin 3.6 gm/dl (2.5-4.0); Glucose 147 mg/dl (70-99(Fasting)); Lipase 14 U/L (11-82); Potassium 3.8 mmol/L (3.5-5.1); Sodium 136 mmol/L (136-145); Total Protein 7.3 gm/dl (6.0-8.3)
[2021-12-31] MEDS ORDERED: OPTIRAY 320 100ml IV ONE (15:01)
--- NOTE | 2021-12-31 15:38 | CT Scan Report ---
CT SCAN OF THE ABDOMEN AND PELVIS WITH IV CONTRAST CLINICAL HISTORY: Generalized abdominal pain. COMPARISON STUDY: CT scan of the left hip dated 10/29/2020. Radiographs of the left hip dated 7. TECHNIQUE: Following the IV administration of 91 cc of Optiray 320, CT scan of the abdomen and pelvi s is performed from the lung bases to the proximal femora. Images are reviewed in the axial, sagittal , and coronal planes. IV contrast was administered without complication. A dose lowering technique wa s utilized adhering to the principles of ALARA. The Examination is degraded by streak artifact from e xtensive metallic spinal hardware. CT DOSE: 515.08 mGycm FINDINGS: Lung bases: The heart is normal in size and without pericardial effusion. There are coronary artery c alcifications. Fibrotic change is noted at the lung bases. No airspace consolidation or pleural effus ion is identified. Liver: The contrast-enhanced liver is normal in size, contour, and attenuation. There is mild to mode rate intrahepatic biliary ductal dilatation. Pneumobilia is noted. The hepatic veins and portal veins are patent. Gallbladder: Surgically absent noting clips in the gallbladder fossa. Spleen: Normal in size and attenuation. Pancreas: Unremarkable. Adrenal glands: Unremarkable. Kidneys: The contrast enhanced kidneys are normal in size and without hydronephrosis. There is hetero geneous enhancement in the upper pole of the left kidney seen on axial image #110. There is a 1.0 cm calculus in the left renal pelvis. There are at least 4 nonobstructing right renal calculi which kamryn ure up to 1.0 cm. Foci of cortical scarring are noted in both kidneys. Abdominal vasculature: The abdominal aorta is normal in course and caliber noting advanced atheroscle rotic calcification. 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 Bowel: There is postoperative change from left-sided colon resection and right lower quadrant colosto my. A rectosigmoid stump is noted in the pelvis. A large parastomal hernia contains mesenteric fat an d a segment of colon. The ostomy appears externally prolapsed, with associated dermal thickening and infiltration. No bowel obstruction is identified. There is moderate to severe fecal retention seen in the right colon. There is laxity of the ventral abdominal wall with protrusion of bowel loops. The a ppendix is not identified and reported surgically absent. Peritoneum: There is no intraperitoneal free air or abdominal ascites. Lymphadenopathy: None. Pelvic viscera: The bladder is distended but otherwise normal in appearance. The uterus and adnexa ar e normal as visualized. A fat-containing hernia is noted in the left groin. There is asymmetric atrop hy of the left gluteal musculature. Skeletal structures: The skeletal structures are osteopenic. There is chronic posttraumatic deformity of the left proximal femur with intertrochanteric and intramedullary nails in place. Lucency around the intramedullary nail suggests loosening. Arthritic change is noted in the hips. Chronic sclerotic change in the left iliac wing is similar to previous. Overlying soft tissue thickening is noted. Ther e is lumbosacral spondylosis with evidence of L1-S1 spinal fusion. Spinal rods are in place. No lytic or blastic lesions are seen. IMPRESSION: 1. There is postoperative change from left-sided colon resection and right lower quadrant ostomy. 2. No bowel obstruction is identified. 3. The ostomy appears prolapsed, and a parastomal hernia contains mesenteric fat and colon there is a lso dermal thickening seen throughout the ostomy with mild infiltration. This is of indeterminant chr onicity and significance and clinical correlation be required. 4. There is a perfusion defect in the upper pole of left kidney which could BC of infection or could represent a small cortical infarct. Correlation with clinical findings and urinalysis will be tamera hutchison. 5. Moderate to severe fecal retention is noted in the right colon. 6. There is chronic posttraumatic deformity and postoperative change in the left proximal femur with evidence of hardware loosening. 7. Chronic sclerotic change of the left iliac wing with overlying soft tissue has been present on mul tiple prior radiographs. Correlated the patient's medical/surgical history. 8. Bilateral nephrolithiasis. 9. 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 10. 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 11. Additional findings as above. ACT 112: Negative or not required by law. Electronically signed by: Elian Barber M.D. 12/31/2021 3:36 PM
[2021-12-31] MEDS ORDERED: SODIUM CHLORIDE 0.9% 1000ML 500 ML IV ONE (15:54)
--- NOTE | 2021-12-31 17:02 | History & Physical Report ---
Date of Service December 31, 2021 Assessment & Plan (1) Pre-syncope: (2) PAD (peripheral artery disease): (3) Hypertension: Plan: This is a 71-year-old female who has a significant past medical history of severe PAD with prior left [employer] and arthrectomy in 04/2016 and eventual left BKA in 01/2017, history of left colon resection secondary to bowel ischemia June 2021 with end right lower quadrant colostomy and current parastomal hernia, HTN, HLD, PFO, neuropathy, anxiety who presents to ED after sustaining a near syncopal episode at colorectal appointment today. Pt experienced abdominal "gas," and pain while in GI clinic today. She then developed diaphoresis, lightheaded and hypotension. Sx resolved after ~ 30 minutes. Pt was sent to ED for further eval. Pre Syncope EKG changes - t wave inversions inferolateral admit under obs to [employer] obtain echo, cycle trops she is w/o cp, first trop negative US carotid doppler orthostatics gentle IVF 80cc/hr x 2 L PAD hx of L Angioplasty and arthrectomy with eventual L BKA High grade superior mesenteric artery stenosis ? L renal cortical infarct on asa/statin will consult vascular for vascular abnormalities, she will need follow up as OP consult urology due to abd CT, UA ordered Hx of bowel ischemia 06/2021 s/p L colon resection and end colostomy Known parastomal hernia with protrusion Fecal retention Follows Dr. Ochoa of [facility] [place] [facility] - to have revision in near future add bowel regimen HTN given bp on softer side will hold home bp meds resume when able Hyperglycemia admitting glucose 147, no hx of dm check a1c DVT ppx: Sq Lovenox Dispo: [facility] tele PCP: Mariam wolf FULL CODE Pt was seen and examined in collaboration with Dr. White, please see addendum History of Present Illness Chief Complaint: Near syncope at colorectal appt today. Primary Care Provider: Sara Wolf MD This is a 71-year-old female who has a significant past medical history of severe PAD with prior left [employer] and arthrectomy in 04/2016 and eventual left BKA in 01/2017, history of left colon resection secondary to bowel ischemia June 2021 with end right lower quadrant colostomy and current parastomal hernia, HTN, HLD, PFO, neuropathy, anxiety who presents to ED after sustaining a near syncopal episode at colorectal appointment today. She was seen colorectal surgeon Dr. Ochoa today secondary to significant parastomal hernia. While in clinic patient developed abdominal pain, "gas," that was in the area of the epigastrium, was nonradiating, lasted about an hour and a half, described as a dull ache, 6 out of 10, nothing made better or worse. When pain came on she became diaphoretic, lightheaded and hypotensive. Due to this patient was sent to ER for further evaluation. She has experienced gas pain in the past, but denies further presyncopal symptoms. During symptom onset she denied any chest pain, shortness of breath, palpitations, change in vision or hearing, seizure-like activity, extremity weakness or mariam loss of consciousness. at bedside also denies any seizure-like activity or facial droop. She denies any recent illness. Due to her left BKA she is wheelchair-bound. She has right knee pain and arthritis which limits her mobility. She currently is in process of getting left lower extremity prosthesis. She denies any fever, chills, sweats, lightheadedness, dizziness, chest pain, shortness of breath, cough, nausea, vomiting, abdominal pain. She has normal stool output. She denies any melena or hematochezia. She denies any change in urinary symptoms including hematuria, dysuria, increased urgency or frequency with urination. She states she has to change her ostomy bag approximately 10 times a day secondary to hernia taking it most of the bag. In ED patient remained hemodynamically stable. She was normotensive for us here. Lab work significant for H&H 11.7 and 34.8, BUN 26, creatinine 0.81, glucose 147, lactic acid 1.0. CT abdomen pelvis reveals prolapsed ostomy and para stomal hernia containing mesenteric fat and colon, perfusion defect in upper pole of left kidney with questionable small cortical infarct, moderate to severe fecal retention in right colon, bilateral lithiasis, occlusion of left femoral arteries, high-grade stenosis of superior mesenteric artery. ED provider spoke with colorectal surgeon who states that personal hernia is currently not an acute issue and plan for revision is in place. 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[employer] Home Medications Medication Instructions Recorded Confirmed Type atorvastatin 20 mg tablet 20 mg PO HS tab 05/21/19 12/31/21 History oxycodone 20 mg tablet,crush 20 mg PO Q12H 06/25/19 12/31/21 History resistant,extended release 12 hr (OxyContin) aspirin 81 mg chewable tablet 81 mg PO BID 06/18/20 12/31/21 History hydrochlorothiazide 12.5 mg tablet 12.5 mg PO QAM 06/18/20 12/31/21 History hydrocodone 5 mg-acetaminophen 325 1 tab PO Q8H PRN 06/18/20 12/31/21 History mg tablet multivitamin 1 tab PO QAM 06/18/20 12/31/21 History amlodipine 10 mg tablet (Norvasc) 10 mg PO QAM 06/19/20 12/31/21 History buspirone 10 mg tablet 10 mg PO BID 06/19/20 12/31/21 History tizanidine 4 mg tablet (Zanaflex) 4 mg PO HS PRN 06/19/20 12/31/21 History valsartan 80 mg tablet 80 mg PO QAM 08/13/20 12/31/21 History acetaminophen 650 mg 650 mg PO Q8H PRN 12/31/21 12/31/21 History tablet,extended release (Tylenol 8 Hour) amitriptyline 25 mg tablet 75 mg PO HS 12/31/21 12/31/21 History docusate sodium 100 mg capsule 100 mg PO BID 12/31/21 12/31/21 History (Colace) omega 1-gho-rmc-fish oil 1,000 mg See Rx Instructions .ROUTE .COMPLEX 12/31/21 12/31/21 History (120 mg-180 mg) capsule (Fish Oil) polysaccharide iron complex 150 mg 150 mg PO 2XWK 12/31/21 12/31/21 History iron capsule Past Med/Surg History Medical History Bile duct stone Hearing deficit BL FABIAN History of anxiety Hx of sarcoma of bone LLE; h/o surgery, radiation treatment 1989 Hyperlipidemia Hypertension Osteoarthritis PAD (peripheral artery disease) PFO (patent foramen ovale) Presence of pessary Surgical History History of ankle surgery Left History of cancer surgery LLE History of carpal tunnel release Right History of section X 1 History of cholecystectomy lap [place]: 07/20/20: Grade view 3, MAC#3.0, ETT 7.0 at [facility] History of colonoscopy History of elbow surgery Left History of ERCP History of hip surgery x 2 - Left History of lumbar surgery x2 History of tonsillectomy and adenoidectomy 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) Family History Mother Anxiety Cardiac disorder Father Cardiac disorder Myocardial infarction Hypertension Grandmother (Maternal) Diabetes Other No family history of adverse response to anesthesia Social History Smoking Status: Former smoker Second Hand Exposure: No; Hx Alcohol Use: No Hx Substance Use: No Preferred Language: Belarusian Communication Ability: Effective Room Server Required: No Beliefs That Will Affect Care: None Current Living Situation: Spouse Feels Safe at Home: Yes Assistive Devices: Denture - Upper, Glasses and Hearing Aid - Bilateral Review of Systems Review of Systems: All systems reviewed & are unremarkable except as noted in HPI & below Physical Exam Physical Exam: Constitutional: WD/WN, chronically ill-appearing female, vitals as above, NAD, sitting up in bed, pleasant, conversing easily Head: Normocephalic, Atraumatic Eyes: PERRL, conjunctivae normal, anicteric sclerae ENMT: external ear and nose normal, oropharynx normal Neck: trachea midline, no thyromegaly normal visual inspection Respiratory: normal respiratory effort, lungs clear to auscultation, no wheeze, rales, rhonchi. Normal insp/exp effort, no accessory muscle use Cardiovascular: RRR, 1/6 KINA noted cardiac apex, left lower extremity BKA noted with scar, no surrounding erythema, edema Vessels: no JVD or carotid bruit Chest: normal inspection of chest Abdomen: normal bowel sounds, soft, ventral incision noted, right lower quadrant colostomy status noted with approximately 8 inch parastomal hernia prolapse, nontender, no hepatosplenomegaly Musculoskeletal: no cyanosis or clubbing, AROM x 4 Skin: no rashes, warm and dry normal turgor Neurologic: PERRL, EOMI, accommodation nl, no face palsy, no dysarthria CN's II-XI intact bilaterally and moves all extremities Psychiatric: A+Ox3, euthymic affect Lymphatic: no cervical or axillary lymphadenopathy : deferred Results & Data Results & Data ([facility]) Vital Signs (Past 12 Hours) Vital Signs Temp Pulse Pulse Resp BP BP Pulse Ox 12/31/21 15:20 84 16 104/47 L 96 12/31/21 13:20 36.8 C 80 80 20 117/68 98 Diagnostic Findings Abdomen/Pelvis CT 12/31/21 14:11 CT SCAN OF THE ABDOMEN AND PELVIS WITH IV CONTRAST CLINICAL HISTORY: Generalized abdominal pain. COMPARISON STUDY: CT scan of the left hip dated 10/29/2020. Radiographs of the left hip dated 04/12/2017. TECHNIQUE: Following the IV administration of 91 cc of Optiray 320, CT scan of the abdomen and pelvis is performed from the lung bases to the proximal femora. Images are reviewed in the axial, sagittal, and coronal planes. IV contrast was administered without complication. A dose lowering technique was utilized adhering to the principles of ALARA. The Examination is degraded by streak artifact from extensive metallic spinal hardware. CT DOSE: 515.08 mGycm FINDINGS: Lung bases: The heart is normal in size and without pericardial effusion. There are coronary artery calcifications. Fibrotic change is noted at the lung bases. No airspace consolidation or pleural effusion is identified. Liver: The contrast-enhanced liver is normal in size, contour, and attenuation. There is mild to moderate intrahepatic biliary ductal dilatation. Pneumobilia is noted. The hepatic veins and portal veins are patent. Gallbladder: Surgically absent noting clips in the gallbladder fossa. Spleen: Normal in size and attenuation. Pancreas: Unremarkable. Adrenal glands: Unremarkable. Kidneys: The contrast enhanced kidneys are normal in size and without hyd ronephrosis. There is heterogeneous enhancement in the upper pole of the left kidney seen on axial image #110. There is a 1.0 cm calculus in the left renal pelvis. There are at least 4 nonobstructing right renal calculi which measure up to 1.0 cm. Foci of cortical scarring are noted in both kidneys. Abdominal vasculature: The abdominal aorta is normal in course and caliber noting advanced atherosclerotic calcification. 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 Bowel: There is postoperative change from left-sided colon resection and right lower quadrant colostomy. A rectosigmoid stump is noted in the pelvis. A large parastomal hernia contains mesenteric fat and a segment of colon. The ostomy appears externally prolapsed, with associated dermal thickening and infiltration. No bowel obstruction is identified. There is moderate to severe fecal retention seen in the right colon. There is laxity of the ventral abdominal wall with protrusion of bowel loops. The appendix is not identified and reported surgically absent. Peritoneum: There is no intraperitoneal free air or abdominal ascites. Lymphadenopathy: None. Pelvic viscera: The bladder is distended but otherwise normal in appearance. The uterus and adnexa are normal as visualized. A fat-containing hernia is noted in the left groin. There is asymmetric atrophy of the left gluteal musculature. Skeletal structures: The skeletal structures are osteopenic. There is chronic posttraumatic deformity of the left proximal femur with intertrochanteric and intramedullary nails in place. Lucency around the intramedullary nail suggests loosening. Arthritic change is noted in the hips. Chronic sclerotic change in the left iliac wing is similar to previous. Overlying soft tissue thickening is noted. There is lumbosacral spondylosis with evidence of L1-S1 spinal fusion. Spinal rods are in place. No lytic or blastic lesions are seen. IMPRESSION: 1. There is postoperative change from left-sided colon resection and right lower quadrant ostomy. 2. No bowel obstruction is identified. 3. The ostomy appears prolapsed, and a parastomal hernia contains mesenteric fat and colon there is also dermal thickening seen throughout the ostomy with mild infiltration. This is of indeterminant chronicity and significance and clinical correlation be required. 4. There is a perfusion defect in the upper pole of left kidney which could BC of infection or could represent a small cortical infarct. Correlation with clinical findings and urinalysis will be essential. 5. Moderate to severe fecal retention is noted in the right colon. 6. There is chronic posttraumatic deformity and postoperative change in the left proximal femur with evidence of hardware loosening. 7. Chronic sclerotic change of the left iliac wing with overlying soft tissue has been present on multiple prior radiographs. Correlated the patient's medical /surgical history. 8. Bilateral nephrolithiasis. 9. 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 10. 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 11. Additional findings as above. ACT 112: Negative or not required by law. Electronically signed by: Elian Barber M.D. 12/31/2021 3:36 PM Chest X-Ray 12/31/21 14:11 XR chest 1V portable CLINICAL HISTORY: Syncope. COMPARISON STUDY: Chest radiograph June 10, 2016. FINDINGS: Lung volumes are normal. Linear left basilar opacity favors atelectasis. There is no pneumothorax or pleural effusion. Cardiac size is normal. Mediastinal contours are normal. There is no evidence for pulmonary edema. IMPRESSION: No acute cardiopulmonary findings. ACT 112: Negative or not required by law. Electronically signed by: Moe Mooney M.D. 12/31/2021 2:37 PM Medications Administered Medication List Discontinued Medications Sodium Chloride (Nss 1000ml) 1,000 mls @ 999 mls/hr IV .Q1H1M ONE Stop: 12/31/21 15:11 Last Infusion: 12/31/21 15:26 Dose: 0 mls/hr Documented by: [id number] Admin: 12/31/21 14:26 Dose: 999 mls/hr Documented by: [id number] Sodium Chloride (Nss 1000ml) 500 mls @ 999 mls/hr IV .Q31M ONE Stop: 12/31/21 16:24 Last Admin: 12/31/21 16:41 Dose: 999 mls/hr Documented by: [id number] Ioversol (Optiray 320 100ml) 91 ml IV ONCE ONE Stop: 12/31/21 15:02 Last Admin: 12/31/21 15:02 Dose: 91 ml Documented by: [id number] ECG Rate (beats per minute): 75 Rhythm: normal sinus Findings: + PVC and + T-wave inversion (inferior/lateral) COVID-19 Results Results COVID-19 Adm Lab Results: RBC 4.05 M/uL (4.2-5.4) L 12/31/21 WBC 8.30 K/uL (4.8-10.8) 12/31/21 Hgb 11.7 g/dL (12.0-16.0) L 12/31/21 Hct 34.8 % (37-47) L 12/31/21 Plt Count 337 K/uL (130-400) 12/31/21 Neutrophils (%) (Auto) 77.0 % 12/31/21 Lymphocytes (%) (Auto) 13.3 % 12/31/21 Monocytes # (Auto) 0.56 K/uL (0.11-0.59) 12/31/21 Eosinophils # (Auto) 0.20 K/uL (0-0.5) 12/31/21 Immature Granulocyte % (Auto) 0.2 % 12/31/21 Neutrophils # (Auto) 6.39 K/uL (1.4-6.5) 12/31/21 Lymphocytes # (Auto) 1.10 K/uL (1.2-3.4) L 12/31/21 Monocytes # (Auto) 0.56 K/uL (0.11-0.59) 12/31/21 Eosinophils # (Auto) 0.20 K/uL (0-0.5) 12/31/21 Basophils # (Auto) 0.03 K/uL (0-0.2) 12/31/21 Immature Granulocyte # (Auto) 0.02 K/uL (0.00-0.02) 12/31/21 Na 136 mmol/L (136-145) 12/31/21 K 3.8 mmol/L (3.5-5.1) 12/31/21 Cl 99 mmol/L (98-107) 12/31/21 CO2 28 mmol/L (21-32) 12/31/21 Anion Gap 9 (3-11) 12/31/21 BUN 26 mg/dl (6-23) H 12/31/21 Creatinine 0.81 mg/dl (0.6-1.2) 12/31/21 BUN/Creatinine Ratio 32.1 (10-20) H 12/31/21 Glucose Level 147 mg/dl (70-99(Fasting)) H 12/31/21 Ca 9.2 mg/dl (8.5-10.1) 12/31/21 Total Bilirubin 0.2 mg/dl (0.2-1.0) 12/31/21 AST/SGOT 14 U/L (13-39) 12/31/21 ALT/SGPT 13 U/L (7-52) 12/31/21 Alkaline Phosphatase 95 U/L (34-104) 12/31/21 Total Protein 7.3 gm/dl (6.0-8.3) 12/31/21 Albumin 3.7 gm/dl (3.4-5.0) 12/31/21 Globulin 3.6 gm/dl (2.5-4.0) 12/31/21 Albumin/Globulin Ratio 1.0 (0.9-2) 12/31/21 Troponin I < 0.03 ng/ml (0-0.04) 12/31/21 SARS-CoV-2, RNA, NAAT NEGATIVE (NEGATIVE) 12/31/21 Chest X-Ray 12/31/21 Code Status & VTE Plan Code Status FULL CODE VTE Prophylaxis Plan VTE Prophylaxis will be ordered: Yes Supervising Physician Co-Signing Physician Notes Care coordinated with Rebecca Larios PA-C. Agree with able note. Patient seen and examined. Please refer to her notes for full details. Vital signs reviewed. Physical exam: General exam: Alert and oriented. Not in acute distress. CVS: S1 and S2 heard, regular rate and rhythm, no murmurs. RS: Clear to auscultation, no wheezing or crackles. ABD: Soft, s/p colostomy ,bowel seen in colostomy bag. SAP TRAINER: Nonfocal. EXT: No edema, no erythema. Labs: Reviewed. Assessment and plan: 71YF with hx of severe PVD s/p left BKA in 01/2017, left colon resection secondary to bowel ischemia June 2021 with end right lower quadrant colostomy and current parastomal hernia who was at colorectal surgery office today when she was having constant burping of gas then felt diaphoretic, lightheaded and hypotensive and near syncope was sent to ER.Currently she is feeling fine.Denies any chest pain or ob, No nausea. No fevers. No cough. Says her ostomy draining lot. Near syncope hypotension questionable ekg changes -but seems same as old monitor in tele fluids'orthostatics carotid doppler CE echo if nay concern will consult cardiology. HIgh grade SMA stenosis Left renal cotical infarct consulted vascular and urology. Hx of Bowel ischemia s/p left colon resection 06/2021 end right lower quadrant colostomy and current parastomal hernia Plan for revision by colorectal surgery. Other diagnosis and plan of care as per Rebecca Larios PA-C. Elpidio calvo MD.
--- NOTE | 2021-12-31 19:47 | Ultrasound Report ---
ULTRASOUND OF THE CAROTID ARTERIES CLINICAL HISTORY: Syncope. COMPARISON STUDY: No priors. TECHNIQUE: Real-time, grayscale, and color Doppler sonography of the carotid arteries is performed. I mages are reviewed in the transverse and longitudinal planes. FINDINGS: The carotid arteries are patent bilaterally and demonstrate antegrade flow. There is mild atheroscler otic plaque seen in the left carotid bulb. Normal doppler arterial waveforms are seen throughout. Jay ocity measurements are listed below. Common carotid peak systolic velocity (cm/sec): RIGHT: 89 LEFT: 85 ICA proximal peak systolic velocity (cm/sec): RIGHT: 96 LEFT: 100 ICA mid peak systolic velocity (cm/sec): RIGHT: 94 LEFT: 96 ICA distal peak systolic velocity (cm/sec): RIGHT: 88 LEFT: 89 ICA/CC peak systolic ratio: RIGHT: 1.1 LEFT: 1.2 Antegrade flow was shown in the vertebral arteries. The external carotid arteries are patent. IMPRESSION: 1. There is no sonographic evidence of hemodynamically significant stenosis in the right or left garcia tid arterial system. 2. Antegrade flow is shown in the vertebral arteries. ACT 112: Negative or not required by law. Electronically signed by: Elian Barber M.D. 12/31/2021 7:46 PM
[2021-12-31] MEDS ORDERED: ALUMINUM/MAGNESIUM SUSP 30 ML UDC PO PRN (20:28)
[2021-12-31] MEDS ORDERED: ONDANSETRON INJ 2 MG/ML 2 ML VIAL IV PRN (20:28)
[2021-12-31] MEDS ORDERED: MAGNESIUM HYDROXIDE SUSP 30 ML UDC PO PRN (20:28)
[2021-12-31] MEDS ORDERED: ACETAMINOPHEN 325 MG TAB PO PRN (20:28)
[2021-12-31] MEDS ORDERED: HYDROCODONE/ACETAMOPHEN 5/325MG TAB PO PRN (20:28)
[2021-12-31] MEDS ORDERED: POLYETHYLENE (MIRALAX) 17 GM PACK PO PRN (20:28)
--- NOTE | 2021-12-31 21:14 | Urology Consultation ---
Date of Consultation December 31, 2021 Assessment & Plan (1) Renal infarct: Patient has been admitted by the hospitalist service for further evaluation of her presyncopal episode. Uncertain potential renal infarct we recommend proceeding as follows: Is uncertain if there is indeed a renal infarct or if this could be an infection. The patient does not have any infectious symptoms but a urinalysis has been ordered and is pending which will correlate with this finding. Patient is a known vasculopath. There is potential that she does have a renal infarct related to poor blood flow to this area of her kidney. As the patient is asymptomatic at this time no urgent urologic intervention is required this evening. 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 Will await their recommendations History of Present Illness Reason for Consultation: Renal infarct Attending Physician: Elpidio White MD History of Present Illness This is a 71-year-old female who presented to [facility] secondary to a near syncopal episode. The patient says that she was driving in a car to a doctor's appointment with her when she started to feel somewhat bloated. They stopped that she needs to get a beverage and the patient notes that after drinking some carbonated soda her bloating got worse and she developed nausea vomiting and lightheadedness. She denies any syncopal episode. She presented to the emergency department with labs and imaging that are delineated below. There is concern the patient had a renal infarct prompting urology consultation. The patient notes that she does not have any back or abdominal pain. She denies any dysuria or hematuria. She denies any urinary frequency. Thus far since her hospitalization the patient has had labs and imaging which I independently reviewed. She did have a carotid Doppler that showed no evidence of carotid stenosis bilaterally or in the vertebral arteries. A chest x-ray showed no evidence of pneumonia. A CT scan of the abdomen pelvis showed no evidence of bowel obstruction. A parastomal hernia was noted. Perfusion defect in the upper pole of left kidney was noted which could potentially represent a cortical infarct or an infection. The femoral arteries appeared occluded on the study. High-grade stenosis was noted at the superior mesenteric artery. Labs include a CBC her white blood cell count and platelet count were normal. Her hemoglobin and hematocrit were 11.7 and 34.8. Chemistry profile showed sodium, potassium, and creatinine were normal. There was a slight elevation of her BUN at 26. Lactic acid level was normal. A Covid test was noted to be negative. At the time of my interview the patient was resting comfortably in bed in no distress. 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IN Home Medications Medication Instructions Recorded Confirmed Type atorvastatin 20 mg tablet 20 mg PO HS tab 05/21/19 12/31/21 History oxycodone 20 mg tablet,crush 20 mg PO Q12H 06/25/19 12/31/21 History resistant,extended release 12 hr (OxyContin) aspirin 81 mg chewable tablet 81 mg PO BID 06/18/20 12/31/21 History hydrochlorothiazide 12.5 mg tablet 12.5 mg PO QAM 06/18/20 12/31/21 History hydrocodone 5 mg-acetaminophen 325 1 tab PO Q8H PRN 06/18/20 12/31/21 History mg tablet multivitamin 1 tab PO QAM 06/18/20 12/31/21 History amlodipine 10 mg tablet (Norvasc) 10 mg PO QAM 06/19/20 12/31/21 History buspirone 10 mg tablet 10 mg PO BID 06/19/20 12/31/21 History tizanidine 4 mg tablet (Zanaflex) 4 mg PO HS PRN 06/19/20 12/31/21 History valsartan 80 mg tablet 80 mg PO QAM 08/13/20 12/31/21 History acetaminophen 650 mg 650 mg PO Q8H PRN 12/31/21 12/31/21 History tablet,extended release (Tylenol 8 Hour) amitriptyline 25 mg tablet 75 mg PO HS 12/31/21 12/31/21 History docusate sodium 100 mg capsule 100 mg PO BID 12/31/21 12/31/21 History (Colace) omega 4-jha-bxk-fish oil 1,000 mg See Rx Instructions .ROUTE .COMPLEX 12/31/21 12/31/21 History (120 mg-180 mg) capsule (Fish Oil) polysaccharide iron complex 150 mg 150 mg PO 2XWK 12/31/21 12/31/21 History iron capsule Patient History Medical History Bile duct stone Hearing deficit BL FABIAN History of anxiety Hx of sarcoma of bone LLE; h/o surgery, radiation treatment 1990 Hyperlipidemia Hypertension Osteoarthritis PAD (peripheral artery disease) PFO (patent foramen ovale) Presence of pessary Surgical History History of ankle surgery Left History of cancer surgery LLE History of carpal tunnel release Right History of section X 1 History of cholecystectomy lap [place]: 07/20/20: Grade view 3, MAC#3.0, ETT 7.0 at [facility] History of colonoscopy History of elbow surgery Left History of ERCP History of hip surgery x 2 - Left History of lumbar surgery x2 History of tonsillectomy and adenoidectomy 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) Family History Mother Anxiety Cardiac disorder Father Cardiac disorder Myocardial infarction Hypertension Grandmother (Maternal) Diabetes Other No family history of adverse response to anesthesia Social History Smoking Status: Former smoker Second Hand Exposure: No; Hx Alcohol Use: No Hx Substance Use: No Preferred Language: Persian Communication Ability: Effective 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 Beliefs That Will Affect Care: None Current Living Situation: Spouse Feels Safe at Home: Yes Assistive Devices: Denture - Upper, Glasses and Hearing Aid - Bilateral Review of Systems Constitutional: no fever and no chills Eyes: no diplopia Ear, Nose, Mouth, Throat: no ear pain Respiratory: no cough and no dyspnea Cardiovascular: no chest pain Gastrointestinal: + nausea; no abdominal pain Genitourinary: no dysuria, no urinary frequency and no hematuria Musculoskeletal: no back pain Integumentary: no rash Neurologic: no localized weakness Physical Exam Constitutional: WD/WN, vitals as above Eyes: Wears glasses ENMT: Ears: no hearing impairment Mouth: no oropharynx abnormality Neck: trachea midline Respiratory: normal respiratory effort; no respiratory distress and no labored breathing Cardiovascular: Rate/Rhythm: regular rate and regular rhythm Gastrointestinal (Abdomen): Soft, nontender, nondistended Musculoskeletal: No calf tenderness Skin: no rashes Neurologic: moves all extremities Psychiatric: A+Ox3, euthymic affect Genitourinary: no CVA tenderness Results & Data ([facility]) Vital Signs (Past 12 Hours) Vital Signs Temp Pulse Pulse Resp BP BP Pulse Ox 12/31/21 19:19 73 18 105/51 L 97 12/31/21 15:20 84 16 104/47 L 96 12/31/21 13:20 36.8 C 80 80 20 117/68 98 PG Care Time/CCT Total # of Minutes Spent Total Time Spent with Patient: Total time spent is greater than 50% in coordination of care (as documented) at patient's floor/unit and/or counseling patient: Coding Level of Care Code 83973 Inpt Consult Level 5 Diagnoses Renal infarct N28.0
[2021-12-31 21:47] LABS: Appearance Urine Clear (Clear); Bacteria Urine Automated Negative (Negative); Bilirubin Urine Negative (Negative); Blood Urine 2+ (Negative); Color Urine Yellow; Epithelial Cell Urine Auto 20-30 /lpf (0-5); Glucose Urine UA Negative (Negative); Ketones Urine Negative (Negative); Leukocyte Esterase Urine Negative (Negative); Nitrite Urine Negative (Negative); Protein Urine Negative (Negative); Specific Gravity Urine 1.041 (1.000-1.030); Urobilinogen Urine Negative (Negative)
[2021-12-31] MEDS: POLYETHYLENE (MIRALAX) 17 GM PACK PO SCH (22:15)
[2021-12-31] MEDS: DOCUSATE SODIUM 100 MG CAP PO SCH (22:16)
[2021-12-31] MEDS: ENOXAPARIN INJ 40 MG/0.4 ML SYR SQ SCH (22:30)
[2021-12-31] MEDS: oxyCODONE HCL 20 MG TABCR (OxyCONTIN) PO SCH (22:30)
[2021-12-31] MEDS: busPIRone 5 MG TAB PO SCH (22:31)
[2021-12-31] MEDS: ASPIRIN 81 MG CHEW PO SCH (22:31)
[2021-12-31] MEDS: AMITRIPTYLINE HCL 25 MG TAB PO SCH (22:32)
[2021-12-31] MEDS: ATORVASTATIN 20 MG TAB PO SCH (22:32)
[2021-12-31] MEDS: SODIUM CHLORIDE 0.9% 1000ML 1,000 ML IV SCH (22:35)
[2022-01-01 01:57] LABS: Basophils # (auto) 0.04 K/uL (0-0.2); Basophils % (auto) 0.7 %; Eosinophils # (auto) 0.31 K/uL (0-0.5); Eosinophils % (auto) 5.6 %; Hematocrit (blood only) 28.7 % (37-47); Hemoglobin 9.8 g/dL (12.0-16.0); Immature Granulocytes # (auto) 0.01 K/uL (0.00-0.02); Immature Granulocytes % (auto) 0.2 %; Lymphocytes # (auto) 2.72 K/uL (1.2-3.4); Lymphocytes % (auto) 49.5 %; Mean Corpuscular Hemoglobin 29.4 pg (25-34); Mean Corpuscular Hgb Conc 34.1 g/dL (32-36); Mean Corpuscular Volume 86.2 fL (80-100); Mean Platelet Volume 9.6 fL (7.4-10.4); Monocytes # (auto) 0.37 K/uL (0.11-0.59); Monocytes % (auto) 6.7 %; Neutrophils # (auto) 2.05 K/uL (1.4-6.5); Neutrophils % (auto) 37.3 %; Platelet Count 274 K/uL (130-400); RDW Coefficient of Variation 13.4 % (11.5-14.5); RDW Standard Deviation 42.5 fL (36.4-46.3); Red Blood Count 3.33 M/uL (4.2-5.4)
[2022-01-01 02:15] LABS: BUN Creatinine Ratio 34.7 (10-20); Bilirubin,Total 0.2 mg/dl (0.2-1.0); Calcium 8.4 mg/dl (8.5-10.1); Chol HDL Ratio 3.5 (0-5); Creatinine Clr Calc Pharmacy 92.3 ml/min; Est GFR (African American) 114.4 ml/min; Est GFR (Non-African American) 98.7 ml/min; Globulin 2.9 gm/dl (2.5-4.0); Magnesium 1.6 mg/dl (1.7-2.4); Potassium 3.6 mmol/L (3.5-5.1); Total Protein 5.9 gm/dl (6.0-8.3)
[2022-01-01 07:43] LABS: Estimated Average Glucose 108 mg/dl; Hemoglobin A1C 5.4 % (4.5-5.6)
[2022-01-01] MEDS: ASPIRIN 81 MG CHEW PO SCH ×2 (08:37→20:35)
[2022-01-01] MEDS: busPIRone 5 MG TAB PO SCH ×2 (08:38→20:36)
[2022-01-01] MEDS: DOCUSATE SODIUM 100 MG CAP PO SCH ×2 (08:38→20:36)
[2022-01-01] MEDS: MULTIVITAMIN TAB PO SCH (08:39)
[2022-01-01] MEDS: POLYETHYLENE (MIRALAX) 17 GM PACK PO SCH ×2 (08:39→20:38)
[2022-01-01] MEDS ORDERED: MAGNESIUM SULFATE / D5W 1 GM/100 ML BAG IV ONE (08:43)
[2022-01-01] MEDS: oxyCODONE HCL 20 MG TABCR (OxyCONTIN) PO SCH ×2 (08:45→21:18)
[2022-01-01] MEDS: SODIUM CHLORIDE 0.9% 1000ML 1,000 ML IV SCH (09:36)
--- NOTE | 2022-01-01 12:58 | Electrocardiogram Report ---
Test Reason : Blood Pressure : / mmHG Vent. Rate : 075 BPM Atrial Rate : 075 BPM P-R Int : 140 ms QRS Dur : 106 ms QT Int : 356 ms P-R-T Axes : -12 001 191 degrees QTc Int : 397 ms Sinus rhythm with occasional Premature ventricular complexes T wave abnormality, consider inferior ischemia Abnormal ECG When compared with ECG of 19-JUN-2020 09:23, Premature ventricular complexes are now Present Confirmed by Gualberto Clay ([id number]) on 01/01/2022 12:58:23 PM Referred By: Calvin Ochoa Confirmed By:Gualberto Clay
--- NOTE | 2022-01-01 16:35 | Hospitalist Progress Note ---
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 Pt experienced abdominal "gas," and pain while in GI clinic. She then developed diaphoresis, lightheaded and hypotension. Sx resolved after ~ 30 minutes. Pt was sent to ED for further eval. Pre Syncope orthostatic VS ordered TTE pending PAD hx of L Angioplasty and arthrectomy with eventual L BKA High grade superior mesenteric artery stenosis Questionable L renal cortical infarct on asa/statin Incidental findings. Patient with no symptoms. Vascular surgery consult pending urology consulted, appreciate input Hx of bowel ischemia 06/2021 s/p L colon resection and end colostomy Known parastomal hernia with protrusion Fecal retention Follows Dr. Ochoa of [facility] Colorectal - to have revision in near future bowel regimen HTN home bp meds on hold Hyperglycemia admitting glucose 147, no hx of dm H a1c pending DVT ppx: Sq Lovenox Dispo: med tele PCP: Rui wolf FULL CODE Admission and Anticipated Discharge Date Admission Date: December 31, 2021 Subjective feels well denies light headedness or dizziness Physical Exam Physical Exam: no acute distress, pleasant and comfortable Respiratory: breathing comfortably on room air, no wheezing/rhochi/rales Cardiovascular: regular rate and rhythm, no murmurs/rubs/gallops Gastrointestinal (Abdomen): soft, non tender, non distended, stoma with pink herniated stoma Musculoskeletal: no edema Results & Data Results & Data ([facility]) Vital Signs (Past 12 Hours) Vital Signs Temp Pulse Pulse Resp BP BP Pulse Ox 01/01/22 15:33 36.9 C 73 20 101/61 93 01/01/22 10:42 36.6 C 85 20 109/67 95 01/01/22 08:14 36.6 C 77 20 115/74 99 01/01/22 07:23 71 Laboratory Results Short CBC 01/01/22 Range/Units 01:41 WBC 5.50 (4.8-10.8) K/uL Hgb 9.8 L (12.0-16.0) g/dL Hct 28.7 L (37-47) % Plt Count 274 (130-400) K/uL BMP 01/01/22 01:41 Sodium 135 L Potassium 3.6 Chloride 103 Carbon Dioxide 27 BUN 17 Creatinine 0.49 L D Glucose 98 Calcium 8.4 L Cardiac Enzymes 12/31/21 01/01/22 Range/Units 19:53 01:41 Troponin I < 0.03 < 0.03 (0-0.04) ng/ml Liver Function 01/01/22 Range/Units 01:41 Total Bilirubin 0.2 (0.2-1.0) mg/dl AST 12 L (13-39) U/L ALT 10 (7-52) U/L Alkaline Phosphatase 79 (34-104) U/L Albumin 3.0 L (3.4-5.0) gm/dl Urine 12/31/21 Range/Units Unknown Urine Color Yellow Urine Appearance Clear (Clear) Urine pH 5.0 (4.5-7.5) Ur Specific [place] 1.041 H (1.000-1.030) Urine Protein Negative (Negative) Urine Glucose (UA) Negative (Negative) Medications Administered Current Inpatient Medications Acetaminophen (Acetaminophen 325 Mg Tab) 650 mg PO Q4H PRN PRN Reason: Pain or Fever Stop: 01/30/22 20:27 Hydrocodone Bitart/Acetaminophen (Hydrocodone/Acetamophen 5/325mg Tab) 1 tab PO Q8H PRN PRN Reason: Pain Stop: 01/14/22 20:27 Al Hydrox/Mg Hydrox/Simethicone (Aluminum/Magnesium Susp 30 Ml Udc) 15 ml PO Q4H PRN PRN Reason: Dyspepsia Stop: 01/30/22 20:27 Amitriptyline HCl (Amitriptyline Hcl 25 Mg Tab) 75 mg PO HS ENRIQUE Stop: 01/30/22 20:59 Last Admin: 12/31/21 22:32 Dose: 75 mg Documented by: Aspirin (Aspirin 81 Mg Chew) 81 mg PO BID ENRIQUE Stop: 01/30/22 20:59 Last Admin: 01/01/22 08:37 Dose: 81 mg Documented by: Atorvastatin Calcium (Atorvastatin 20 Mg Tab) 20 mg PO HS [facility] Stop: 01/30/22 20:59 Last Admin: 12/31/21 22:32 Dose: 20 mg Documented by: Buspirone HCl (Buspirone 5 Mg Tab) 10 mg PO BID ENRIQUE Stop: 01/30/22 20:59 Last Admin: 01/01/22 08:38 Dose: 10 mg Documented by: Docusate Sodium (Docusate Sodium 100 Mg Cap) 100 mg PO BID ENRIQUE Stop: 01/30/22 20:59 Last Admin: 01/01/22 08:38 Dose: 100 mg Documented by: Enoxaparin Sodium (Enoxaparin Inj 40 Mg/0.4 Ml Syr) 40 mg SQ Q24H [facility] Stop: 01/30/22 20:59 Last Admin: 12/31/21 22:30 Dose: 40 mg Documented by: Sodium Chloride (Nss 1000ml) 1,000 mls @ 80 mls/hr IV .[id number] [facility] Stop: 01/01/22 21:27 Last Admin: 01/01/22 09:36 Dose: 80 mls/hr Documented by: Magnesium Hydroxide (Magnesium Hydroxide Susp 30 Ml Udc) 30 ml PO Q12H PRN PRN Reason: Constipation Stop: 01/30/22 20:27 Multivitamins (Multivitamin Tab) 1 tab PO QAM [facility] Stop: 01/31/22 08:59 Last Admin: 01/01/22 08:39 Dose: 1 tab Documented by: Ondansetron HCl (Ondansetron Inj 2 Mg/Ml 2 Ml Vial) 4 mg IV Q6H PRN PRN Reason: Nausea Stop: 01/30/22 20:27 Oxycodone HCl (Oxycodone Hcl 20 Mg Tabcr (Oxycontin)) 20 mg PO Q12H [facility] Stop: 01/14/22 20:59 Last Admin: 01/01/22 08:45 Dose: 20 mg Documented by: Polyethylene Glycol (Polyethylene (Miralax) 17 Gm Pack) 17 gm PO DAILY PRN PRN Reason: Constipation Stop: 01/30/22 20:27 Polyethylene Glycol (Polyethylene (Miralax) 17 Gm Pack) 17 gm PO BID ENRIQUE Stop: 01/30/22 20:59 Last Admin: 01/01/22 08:39 Dose: 17 gm Documented by:
[2022-01-01] MEDS: AMITRIPTYLINE HCL 25 MG TAB PO SCH (20:34)
[2022-01-01] MEDS: ATORVASTATIN 20 MG TAB PO SCH (20:35)
[2022-01-01] MEDS: ENOXAPARIN INJ 40 MG/0.4 ML SYR SQ SCH (20:37)
[2022-01-02] MEDS: MAGNESIUM SULFATE / D5W 1 GM/100 ML BAG IV SCH ×2 (09:47→13:13)
[2022-01-02] MEDS: ASPIRIN 81 MG CHEW PO SCH ×2 (09:50→20:54)
[2022-01-02] MEDS: busPIRone 5 MG TAB PO SCH ×2 (09:50→20:54)
[2022-01-02] MEDS: DOCUSATE SODIUM 100 MG CAP PO SCH ×2 (09:50→20:56)
[2022-01-02] MEDS: POLYETHYLENE (MIRALAX) 17 GM PACK PO SCH ×2 (09:51→20:53)
[2022-01-02] MEDS: MULTIVITAMIN TAB PO SCH (09:51)
[2022-01-02] MEDS: oxyCODONE HCL 20 MG TABCR (OxyCONTIN) PO SCH ×2 (10:06→21:02)
[2022-01-02] MEDS ORDERED: ONDANSETRON 8MG OD TAB PO PRN (13:42)
--- NOTE | 2022-01-02 16:54 | Hospitalist Progress Note ---
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 Pt experienced abdominal "gas," and pain while in GI clinic. She then developed diaphoresis, lightheaded and hypotension. Sx resolved after ~ 30 minutes. Pt was sent to ED for further eval. Pre Syncope orthostatic VS ordered TTE no change compared to prior. Mild grade 1 diastolic dysfunction, mild LVH, mod AV sclerosis but no stenosis, EF 55-60% PAD hx of L Angioplasty and arthrectomy with eventual L BKA High grade superior mesenteric artery stenosis Questionable L renal cortical infarct on asa/statin Incidental findings. Patient with no symptoms. Vascular surgery consult pending urology consulted, appreciate input Hx of bowel ischemia 06/2021 s/p L colon resection and end colostomy Known parastomal hernia with protrusion Fecal retention Follows Dr. Ochoa of [facility] Colorectal - to have revision in near future bowel regimen HTN home bp meds on hold Hyperglycemia admitting glucose 147, no hx of dm H a1c pending DVT ppx: Sq Lovenox Dispo: discharge home pending Vascular surgery evaluation. While here, will order PT/OT PCP: Rui wolf FULL CODE Admission and Anticipated Discharge Date Admission Date: December 31, 2021 Subjective Feels well Awaiting Vascular surgery eval No fever/chills No nausea/vomiting/abdominal pain Physical Exam Physical Exam: Pleasant, comfortable, no acute distress Respiratory: breathing comfortably on room air, no wheezing/rhonchi/rales Cardiovascular: regular rate and rhythm, no murmurs/rubs/gallops Gastrointestinal (Abdomen): soft, non tender, chronic stoma hernia Musculoskeletal: left AKA stump is well healed Neurologic: awake, alert, spontaneously moving extremities Results & Data Results & Data ([facility]) Vital Signs (Past 12 Hours) Vital Signs Temp Pulse Pulse Resp BP BP Pulse Ox 01/02/22 15:32 36.8 C 83 20 131/72 95 01/02/22 15:23 81 01/02/22 11:05 36.7 C 81 20 128/74 96 01/02/22 07:44 36.7 C 73 19 127/70 94 01/02/22 07:16 78 Medications Administered Current Inpatient Medications Acetaminophen (Acetaminophen 325 Mg Tab) 650 mg PO Q4H PRN PRN Reason: Pain or Fever Stop: 01/30/22 20:27 Hydrocodone Bitart/Acetaminophen (Hydrocodone/Acetamophen 5/325mg Tab) 1 tab PO Q8H PRN PRN Reason: Pain Stop: 01/14/22 20:27 Al Hydrox/Mg Hydrox/Simethicone (Aluminum/Magnesium Susp 30 Ml Udc) 15 ml PO Q4H PRN PRN Reason: Dyspepsia Stop: 01/30/22 20:27 Amitriptyline HCl (Amitriptyline Hcl 25 Mg Tab) 75 mg PO HS ENRIQUE Stop: 01/30/22 20:59 Last Admin: 01/01/22 20:34 Dose: 75 mg Documented by: Aspirin (Aspirin 81 Mg Chew) 81 mg PO BID ENRIQUE Stop: 01/30/22 20:59 Last Admin: 01/02/22 09:50 Dose: 81 mg Documented by: Atorvastatin Calcium (Atorvastatin 20 Mg Tab) 20 mg PO HS ENRIQUE Stop: 01/30/22 20:59 Last Admin: 01/01/22 20:35 Dose: 20 mg Documented by: Buspirone HCl (Buspirone 5 Mg Tab) 10 mg PO BID ENRIQUE Stop: 01/30/22 20:59 Last Admin: 01/02/22 09:50 Dose: 10 mg Documented by: Docusate Sodium (Docusate Sodium 100 Mg Cap) 100 mg PO BID ENRIQUE Stop: 01/30/22 20:59 Last Admin: 01/02/22 09:50 Dose: 100 mg Documented by: Enoxaparin Sodium (Enoxaparin Inj 40 Mg/0.4 Ml Syr) 40 mg SQ Q24H ENRIQUE Stop: 01/30/22 20:59 Last Admin: 01/01/22 20:37 Dose: 40 mg Documented by: Magnesium Hydroxide (Magnesium Hydroxide Susp 30 Ml Udc) 30 ml PO Q12H PRN PRN Reason: Constipation Stop: 01/30/22 20:27 Multivitamins (Multivitamin Tab) 1 tab PO QAM [facility] Stop: 01/31/22 08:59 Last Admin: 01/02/22 09:51 Dose: 1 tab Documented by: Ondansetron HCl (Ondansetron 8mg Od Tab) 8 mg PO Q6H PRN PRN Reason: Nausea Stop: 02/01/22 13:41 Oxycodone HCl (Oxycodone Hcl 20 Mg Tabcr (Oxycontin)) 20 mg PO Q12H [facility] Stop: 01/14/22 20:59 Last Admin: 01/02/22 10:06 Dose: 20 mg Documented by: Polyethylene Glycol (Polyethylene (Miralax) 17 Gm Pack) 17 gm PO DAILY PRN PRN Reason: Constipation Stop: 01/30/22 20:27 Polyethylene Glycol (Polyethylene (Miralax) 17 Gm Pack) 17 gm PO BID [facility] Stop: 01/30/22 20:59 Last Admin: 01/02/22 09:51 Dose: 17 gm Documented by:
[2022-01-02] MEDS: MAGNESIUM OXIDE 400 MG TAB PO SCH (20:53)
[2022-01-02] MEDS: ATORVASTATIN 20 MG TAB PO SCH (20:54)
[2022-01-02] MEDS: AMITRIPTYLINE HCL 25 MG TAB PO SCH (20:55)
[2022-01-02] MEDS: ENOXAPARIN INJ 40 MG/0.4 ML SYR SQ SCH (20:56)
[2022-01-03] MEDS ORDERED: MELATONIN 3 MG TAB PO PRN (00:47)
[2022-01-03] MEDS: POLYETHYLENE (MIRALAX) 17 GM PACK PO SCH (08:04)
[2022-01-03] MEDS: ASPIRIN 81 MG CHEW PO SCH (08:04)
[2022-01-03] MEDS: DOCUSATE SODIUM 100 MG CAP PO SCH (08:04)
[2022-01-03] MEDS: busPIRone 5 MG TAB PO SCH (08:04)
[2022-01-03] MEDS: MAGNESIUM OXIDE 400 MG TAB PO SCH (08:04)
[2022-01-03] MEDS: MULTIVITAMIN TAB PO SCH (08:04)
[2022-01-03] MEDS: oxyCODONE HCL 20 MG TABCR (OxyCONTIN) PO SCH (08:11)
[2022-01-03] MEDS ORDERED: MAGNESIUM SULFATE / D5W 1 GM/100 ML BAG IV SCH (10:00)
--- NOTE | 2022-01-03 11:43 | Consultation ---
Date of Consultation January 03, 2022 Assessment & Plan (1) Superior mesenteric artery stenosis: Pt with mild distal SMA stenosis and is asymtpomatic from this. No indications for vascular surgical intervention at this time. Small area of renal infarct does not appear to have affected renal function and may be chronic. No renal artery stenosis noted on CT scan. This was discussed with pt, she expresses understanding. Please call if needed. History of Present Illness Reason for Consultation: SMA stenosis Attending Physician: Sunil Wilson MD History of Present Illness 71 yo f with multiple medical problems, including HTN, hyperlipidemia, PFO, PAD with hx of angio of lower ext with stent placement, bowel perforation requiring partial colectomy and colostomy, and LLE amputation, admitted after a near syncopal episode, seen in consultation today for SMA stenosis and renal infarct noted on CT abd/pelvis. Pt without known hx of mesenteric stenosis in past per pt. Pt admits rare episodes of abd pain which are unpredictable. Denies post prandial pain, food fear, significant changes in eating habits, significant unintended weight loss. Denies flank pain or changes in urination. Review of labs indicate excellent renal function. Pt denies FABIAN, fever, chest pain, SOB, abd pain, N/V, rest pain, claudication, other complaints. Does not ambulate d/t LLE amputation. CT abd pelvis demonstrates mild SMA stenosis distally, and small area of renal infarct. 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IN Home Medications Medication Instructions Recorded Confirmed Type atorvastatin 20 mg tablet 20 mg PO HS tab 05/21/19 12/31/21 History oxycodone 20 mg tablet,crush 20 mg PO Q12H 06/25/19 12/31/21 History resistant,extended release 12 hr (OxyContin) aspirin 81 mg chewable tablet 81 mg PO BID 06/18/20 12/31/21 History hydrochlorothiazide 12.5 mg tablet 12.5 mg PO QAM 06/18/20 12/31/21 History hydrocodone 5 mg-acetaminophen 325 1 tab PO Q8H PRN 06/18/20 12/31/21 History mg tablet multivitamin 1 tab PO QAM 06/18/20 12/31/21 History amlodipine 10 mg tablet (Norvasc) 10 mg PO QAM 06/19/20 12/31/21 History buspirone 10 mg tablet 10 mg PO BID 06/19/20 12/31/21 History tizanidine 4 mg tablet (Zanaflex) 4 mg PO HS PRN 06/19/20 12/31/21 History valsartan 80 mg tablet 80 mg PO QAM 08/13/20 12/31/21 History acetaminophen 650 mg 650 mg PO Q8H PRN 12/31/21 12/31/21 History tablet,extended release (Tylenol 8 Hour) amitriptyline 25 mg tablet 75 mg PO HS 12/31/21 12/31/21 History docusate sodium 100 mg capsule 100 mg PO BID 12/31/21 12/31/21 History (Colace) omega 4-imh-cfd-fish oil 1,000 mg See Rx Instructions .ROUTE .COMPLEX 12/31/21 12/31/21 History (120 mg-180 mg) capsule (Fish Oil) polysaccharide iron complex 150 mg 150 mg PO 2XWK 12/31/21 12/31/21 History iron capsule Patient History Medical History (Updated 01/03/22 @ 11:40 by Lisa Bills PA-C) Bile duct stone Hearing deficit BL FABIAN History of anxiety Hx of sarcoma of bone LLE; h/o surgery, radiation treatment 1989 Hyperlipidemia Hypertension Osteoarthritis PAD (peripheral artery disease) PFO (patent foramen ovale) Presence of pessary Superior mesenteric artery stenosis Surgical History History of ankle surgery Left History of cancer surgery LLE History of carpal tunnel release Right History of section X 1 History of cholecystectomy lap [place]: 07/20/20: Grade view 3, MAC#3.0, ETT 7.0 at [facility] History of colonoscopy History of elbow surgery Left History of ERCP History of hip surgery x 2 - Left History of lumbar surgery x2 History of tonsillectomy and adenoidectomy 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) Family History Mother Anxiety Cardiac disorder Father Cardiac disorder Myocardial infarction Hypertension Grandmother (Maternal) Diabetes Other No family history of adverse response to anesthesia Social History Smoking Status: Former smoker Second Hand Exposure: No; Hx Alcohol Use: No Hx Substance Use: No Preferred Language: Frisian Communication Ability: Effective Aircraft Manager Required: No Beliefs That Will Affect Care: None Current Living Situation: Spouse and Family Current Living Situation Comment: Lives at home with , daughter, and son Feels Safe at Home: Yes Assistive Devices: Denture - Upper, Glasses, Hearing Aid - Bilateral and Wheelchair Review of Systems Review of Systems: All systems reviewed & are unremarkable except as noted in HPI & below Physical Exam Constitutional: WD/WN, vitals as above healthy appearing, cooperative and comfortable; not in distress ENMT: Ears: no hearing impairment Neck: trachea midline Respiratory: normal respiratory effort, lungs clear to auscultation Auscultation: + diminished lung sounds Cardiovascular: Rate/Rhythm: regular rate and regular rhythm Vessels: femoral pulses present and radial pulses present; + abnormal peripheral pulses Extremities: normal capillary refill; no edema Gastrointestinal (Abdomen): Inspection/Auscultation: abdomen not distended Percussion/Palpation: abdomen soft; abdomen nontender R sided ostomy notes Musculoskeletal: no cyanosis or clubbing, extremities motor strength 5/5 Extremities: + amputation noted (LLE) Skin: no rashes, warm and dry Neurologic: moves all extremities and awake; no focal motor deficits and not confused Psychiatric: A+Ox3, euthymic affect Results & Data ([facility]) Vital Signs (Past 12 Hours) Vital Signs Temp Pulse Pulse Resp BP BP Pulse Ox 01/03/22 11:21 37.0 C 75 16 118/71 95 01/03/22 09:45 82 01/03/22 07:37 36.8 C 73 16 116/71 94 01/03/22 04:25 36.8 C 73 114/66
--- NOTE | 2022-01-03 12:37 | Discharge Summary ---
Date of Service January 03, 2022 Admission HPI Per Admitting Provider This is a 71-year-old female who has a significant past medical history of severe PAD with prior left SFA [employer] and arthrectomy in 04/2016 and eventual left BKA in 01/2017, history of left colon resection secondary to bowel ischemia June 2021 with end right lower quadrant colostomy and current parastomal hernia, HTN, HLD, PFO, neuropathy, anxiety who presents to ED after sustaining a near syncopal episode at colorectal appointment today. She was seen colorectal surgeon Dr. Ochoa today secondary to significant parastomal hernia. While in clinic patient developed abdominal pain, "gas," that was in the area of the epigastrium, was nonradiating, lasted about an hour and a half, described as a dull ache, 6 out of 10, nothing made better or worse. When pain came on she became diaphoretic, lightheaded and hypotensive. Due to this patient was sent to ER for further evaluation. She has experienced gas pain in the past, but denies further presyncopal symptoms. During symptom onset she denied any chest pain, shortness of breath, palpitations, change in vision or hearing, seizure- like activity, extremity weakness or mariam loss of consciousness. at bedside also denies any seizure-like activity or facial droop. She denies any recent illness. Due to her left BKA she is wheelchair-bound. She has right knee pain and arthritis which limits her mobility. She currently is in process of getting left lower extremity prosthesis. She denies any fever, chills, sweats, lightheadedness, dizziness, chest pain, shortness of breath, cough, nausea, vomiting, abdominal pain. She has normal stool output. She denies any melena or hematochezia. She denies any change in urinary symptoms including hematuria, dysuria, increased urgency or frequency with urination. She states she has to change her ostomy bag approximately 10 times a day secondary to hernia taking it most of the bag. In ED patient remained hemodynamically stable. She was normotensive for us here. Lab work significant for H&H 11.7 and 34.8, BUN 26, creatinine 0.81, glucose 147, lactic acid 1.0. CT abdomen pelvis reveals prolapsed ostomy and para stomal hernia containing mesenteric fat and colon, perfusion defect in upper pole of left kidney with questionable small cortical infarct, moderate to severe fecal retention in right colon, bilateral lithiasis, occlusion of left femoral arteries, high-grade stenosis of superior mesenteric artery. ED provider spoke with colorectal surgeon who states that personal hernia is currently not an acute issue and plan for revision is in place. 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, likely chronic Presyncope due to hypotension At risk for polypharmacy Discharge Data 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IN Consultations 12/31/21 16:12 ED Decision to Admit Stat 12/31/21 16:51 Consult Urology Routine 12/31/21 17:07 Consult Vascular Surgery Routine Ordered Studies 12/31/21 14:11 CT abd pelvis IV con only Stat 12/31/21 16:48 US carotid doppler BI Stat Hospital Course (1) Pre-syncope: (2) PAD (peripheral artery disease): (3) Hypertension: This is a 71-year-old female who has a significant past medical history of severe PAD with prior left SFA [employer] and arthrectomy in 04/2016 and eventual left BKA in 01/2017, history of left colon resection secondary to bowel ischemia June 2021 with end right lower quadrant colostomy and current parastomal hernia, HTN, HLD, PFO, neuropathy, anxiety who presents to ED after sustaining a near syncopal episode at colorectal appointment. Pt experienced abdominal "gas," and pain while in GI clinic. She then developed diaphoresis, lightheaded and hypotension. Sx resolved after ~ 30 minutes. Pt was sent to ED for further eval. Pre Syncope Upon arrival, she was noted to have low BP (lowest 85/55). Her home antihypertensives (amlodipine, valsartan, HCTZ) were held and she received IVF. For the remainder of her hospitalization, her BP has remained normal off medications. It is likely she is receiving too much antihypertensive medications and may have suffered presyncope due to this. These medications were discontinued at discharge and she was advised to follow up with her PCP within the next 1-2 week for BP follow up. Secure message also sent to PCP's office. TTE no change compared to prior. Mild grade 1 diastolic dysfunction, mild LVH, mod AV sclerosis but no stenosis, EF 55-60% PAD hx of L Angioplasty and arthrectomy with eventual L BKA High grade superior mesenteric artery stenosis Small perfusion defect left renal cortex--abscess vs infarct Unlikely to be abscess with negative urinalysis. Most likely cortical infarct but with normal renal function, felt to be chronic. Vascular surgery consulted and evaluated imaging and felt that the SMA stenosis was mild. With no associated pain, or mesenteric ischemia symptoms, she does not need further evaluation. Already on aspirin and statin Hx of bowel ischemia 06/2021 s/p L colon resection and end colostomy Known parastomal hernia with protrusion Fecal retention Follows Dr. Ochoa of [facility] [place] Colorectal - to have revision in near future bowel regimen HTN home bp meds on hold Hyperglycemia admitting glucose 147, no hx of dm H a1c pending DVT ppx: Sq Lovenox Dispo: from home, CM contacted to arrange for home care services PCP: Mariam wolf FULL CODE Home Health Attestation I certify that this patient is under my care and that I, or a physicians hotel assistant general manager working with me, had a face to-face encounter that meets the home health [id number] encounter requirements with this patient. The encounter with the patient was in whole, or in part, for the following medical condition, which is the primary reason for home health care (list medical condition): PAD,Syncope I certify that, based on my findings, the following services are medically necessary home health services: My clinical findings support the need for the above services because: Skilled Nsg Assessment Skilled Nsg Assess Pt Illness, Disease and Sx Monitoring Vital Signs Further, I certify that my clinical findings support that this patient is homebound (i.e. absences from home require considerable and taxing effort and are for medical reasons or confucianist services or infrequently or of short duration when for other reasons) because: Supportive Aid - Wheelchair Transportation Assistance/Unable to Leave Home Unassisted Certification for Home Health Services: Based on the above findings, I certify that this patient is confined to the home and needs intermittent intermediate care, physical therapy and/or speech therapy or continues to need occupational therapy. The patient is under my care, and I have initiated the establishment of the plan of care. This patient will be followed by a physician who will periodically review the plan of care. Total Time Total Time Spent Total Time Spent (In Minutes): 35 Discharge Plan Discharge Items Patient Disposition: Home - Home Health Services Reason For Visit: NEAR SYNCOPE Discharge Diagnosis: Near syncope At risk for polypharmacy Mild distal SMA stenosis Condition on Discharge: Good Activity: Resume your previous activity Non-emergency contact: Primary Care Provider and Surgeon Call non-emergency contact if: you have any medication questions Follow-up/Referrals: Sara Schwarz MD [Primary Care Provider] - (Date & Time 01/06/2022 10:00 AM Provider Jimbo Torres MD Department Family Medicine [facility] ) Diet: Heart Healthy Addtl Attending Provider Instructions: You almost fainted at your doctor's office. Upon arrival here, your blood pressure was low. Your home blood pressure medications were held and your blood pressure has been normal Your amlodipine, hydrochlorothiazide and valsartan were discontinued here. Please follow up with your Primary care physician whether (or not) these medications should be resumed Pending Studies at Discharge: No Stand-Alone Forms: My [facility] AppMyDay, Smoking Cessation Medications and DC Order Prescriptions: Continued atorvastatin 20 mg tablet 20 mg PO HS RF: 0 oxycodone [OxyContin] 20 mg tablet,oral only,ext.rel.12 hr 20 mg PO Q12H RF: 0 multivitamin Tablet 1 tab PO QAM RF: 0 hydrocodone-acetaminophen 5-325 mg Tablet 1 tab PO Q8H PRN (Reason: Pain) RF: 0 aspirin 81 mg Tablet,Chewable 81 mg PO BID RF: 0 tizanidine [Zanaflex] 4 mg Tablet 4 mg PO HS PRN (Reason: Muscle Spasm) RF: 0 buspirone 10 mg Tablet 10 mg PO BID RF: 0 polysaccharide iron complex 150 mg iron Capsule 150 mg PO 2XWK RF: 0 acetaminophen [Tylenol 8 Hour] 650 mg Tablet Extended Release 650 mg PO Q8H PRN (Reason: Pain) RF: 0 amitriptyline 25 mg tablet 75 mg PO HS RF: 0 docusate sodium [Colace] 100 mg Capsule 100 mg PO BID RF: 0 omega 7-mff-fli-fish oil [Fish Oil] 1,000 mg (120 mg-180 mg) Capsule See Rx Instructions .ROUTE .COMPLEX RF: 0 Discontinued hydrochlorothiazide 12.5 mg Tablet 12.5 mg PO QAM RF: 0 amlodipine [Norvasc] 10 mg Tablet 10 mg PO QAM RF: 0 valsartan 80 mg Tablet 80 mg PO QAM RF: 0 Discharge Orders: Discharge Order (Routine); Ordered 01/03/22 Ordered By: Sunil Wilson Admission Data Admit Date/Time: 01/02/22 16:51 Attending Provider: Sunil Wilson Admit Provider: Elpidio White Primary Care Provider: Sara Schwarz Other Providers: Elpidio White ; Damian Pace ; Mundo Perrin ; Franklin Castrejon [facility]
== END 2022-01-03 15:48 | disposition home health service (06) ==
LOC: ED 13:26 → 2W 13:26 → SUATTDRO 16:48 → 2W 19:31

== ENCOUNTER 2023-07-20 17:06 | Inpatient (IN) ==
--- NOTE | 2023-07-20 17:55 | ED Triage Note ---
Date of Service July 20, 2023 History of Present Illness This patient was briefly evaluated while in triage. An abbreviated physical exam was performed. This patient is a 73-year-old Female who presents to the ED for evaluation of an infection of her left stump. She states she has had issues with it for a few weeks. She was started on Keflex a week ago. Physical Exam VITALS: Vitals are noted on the nurse's note and reviewed by myself. GENERAL: This is a 73-year-old female, in no acute distress, well-developed well-nourished. SKIN: Bandage over the left stump. HEART: Regular rate and rhythm without murmurs gallops or rubs. LUNGS: Clear to auscultation bilaterally without wheezes, rales or rhonchi. NEURO: Patient was alert and oriented to person place and time. Initial orders for labs and / or imaging were placed and patient was placed in the waiting area until a bed is available. Please see further documentation for the full ED course. MDM / Impression Impression Impression: Leg wound, left, History of methicillin resistant staphylococcus aureus (MRSA), History of osteomyelitis
[2023-07-20 19:29] LABS: Basophils # (auto) 0.07 K/uL (0.00-0.20); Basophils % (auto) 0.7 %; Eosinophils # (auto) 0.61 K/uL (0.00-0.50); Eosinophils % (auto) 6.2 %; Hematocrit (blood only) 37.5 % (37.0-47.0); Immature Granulocytes # (auto) 0.02 K/uL (0.01-0.20); Immature Granulocytes % (auto) 0.2 %; Lymphocytes # (auto) 2.65 K/uL (1.20-3.40); Lymphocytes % (auto) 26.8 %; Mean Corpuscular Hemoglobin 27.3 pg (25.0-34.0); Mean Corpuscular Volume 85.2 fL (80.0-100.0); Mean Platelet Volume 10.7 fL (9.4-12.4); Monocytes # (auto) 0.78 K/uL (0.11-0.59); Monocytes % (auto) 7.9 %; Neutrophils # (auto) 5.74 K/uL (1.40-6.50); Neutrophils % (auto) 58.2 %; Platelet Count 350 K/uL (130-400); RDW Coefficient of Variation 13.4 % (11.5-14.5); RDW Standard Deviation 41.9 fL (36.4-46.3); White Blood Count 9.87 K/ul (4.8-10.8)
[2023-07-20 19:41] LABS: Alanine Aminotransferase 13 U/L (7-52); Albumin Globulin Ratio 0.9 (0.9-2); Albumin Level 4.1 gm/dl (3.4-5.0); Alkaline Phosphatase 233 U/L (34-104); Anion Gap 9 (3-11); Aspartate Aminotransferase 20 U/L (13-39); BUN Creatinine Ratio 27.8 (10-20); Bilirubin,Total 0.2 mg/dl (0.2-1.0); Blood Urea Nitrogen 20 mg/dl (6-23); Carbon Dioxide 25 mmol/L (21-32); Chloride 105 mmol/L (98-107); Est GFR (Non-African American) 83.7 ml/min; Globulin 4.4 gm/dl (2.5-4.0); Glucose 110 mg/dl (70-99(Fasting)); Sodium 139 mmol/L (136-145); Total Protein 8.5 gm/dl (6.0-8.3)
--- NOTE | 2023-07-21 00:37 | Emergency Department Note ---
Impression & Plan Leg wound, left, History of methicillin resistant staphylococcus aureus (MRSA), History of osteomyelitis ED Provider Note CHIEF COMPLAINT: Left leg infection HISTORY OF PRESENT ILLNESS: This 73-year-old female patient presents to the emergency department Via private vehicle at the recommendation of sports medicine doctor for evaluation of left leg infection. The patient states she was seen by her PCP for routine follow-up a few weeks ago. She was told that there was concern for infection on her routine labs. The patient states that at this time, she noticed her left stump was red and there was some purulent drainage. She notified her PCP and they started her on Keflex and obtained a culture of the wound. They placed a referral for sports medicine and the patient was seen by the sports medicine doctor earlier today. The culture grew MRSA. The patient had a prescription for Bactrim sent to her pharmacy 2 days ago, but never picked up the prescription. An x-ray was completed and there was apparently concern for possible osteomyelitis and the patient was referred to the emergency department for IV antibiotics. Patient states she has not noticed any pain, noting the stump is generally numb. She denies any fever, chills, nausea, vomiting. Appetite has been normal. REVIEW OF SYSTEMS: A 10 system review of systems was performed with positives and pertinent negatives listed in the history of present illness. All other systems were reviewed and are negative. ALLERGIES: Vancomycin, cetirizine, gabapentin PHYSICAL EXAM: VITALS: Vitals are noted on the nurse's note and reviewed by myself. Vital signs stable. GENERAL: This is a 73-year-old female, in no acute distress, nondiaphoretic, well-developed well-nourished. SKIN: Left clsft-fkj-jtfw amputation. Erythema with purulent discharge of the left stump. The skin was otherwise without rashes, erythema, edema, or bruising. There is no tenting of the skin. Capillary refill less than 2 seconds. HEAD: Normocephalic atraumatic. EYES: Conjunctivae without injection, sclerae without icterus. NECK: Supple without nuchal rigidity. No lymphadenopathy. No JVD. HEART: Regular rate and rhythm without murmurs gallops or rubs. LUNGS: Clear to auscultation bilaterally without wheezes, rales or rhonchi. No retractions or accessory muscle use. MUSCULOSKELETAL: No muscle atrophy, erythema, or edema noted. Full range of motion without joint tenderness in all extremities. No tenderness to palpation. Normal gait. Strength 5/5 throughout. NEURO: Patient was alert and oriented to person place and time. No focal neurological deficits. EMERGENCY DEPARTMENT COURSE: The patient was seen and evaluated as above. The patient presents for cellulitis of the left lower extremity. This was known to have grown MRSA. She has been on Keflex without relief of the infection I did review outpatient medical records to include culture with sensitivities. The patient will be started on IV daptomycin while here in the emergency department. IV access was obtained, labs were drawn. Labs reviewed. No leukocytosis, anemia, thrombocytopenia. Renal, hepatic function and electrolytes without significant abnormality. C-reactive protein elevated at 6.92. [facility]. By her report, there was concern for possible osteomyelitis on outpatient x-ray completed by PCP. The patient was agreeable with the treatment plan. I discussed the case with Dr. Heather Veras. Please see hospitalist dictation regarding ongoing management care of this patient. Differential diagnosis includes Cellulitis, abscess, MRSA infection, DVT, necrotizing fasciitis, dermatitis, drug eruption, allergic reaction, as well as other pathologies. I attest that I have personally reviewed the patient's current medication list. Blood Pressure Screening: Patient was found to have a slightly elevated blood pressure due to circumstances. I do not believe that the patient requires hypertension monitoring. The chart was completed utilizing [employer] Speech voice recognition software. Grammatical errors, random word insertions, pronoun errors, and incomplete sentences are an occasional consequence of this system due to software limitations, ambient noise, and hardware issues. Any formal questions or concerns about the content, text, or information contained within the body of this dictation should be directly addressed to the provider for clarification. Past Med/Surg History Medical History Bile duct stone Hearing deficit BL FABIAN History of anxiety Hx of sarcoma of bone LLE; h/o surgery, radiation treatment 1989 Hyperlipidemia Hypertension Lab test negative for COVID-19 virus Near syncope Osteoarthritis PAD (peripheral artery disease) PFO (patent foramen ovale) Pre-syncope Presence of pessary Superior mesenteric artery stenosis Weakness Surgical History History of ankle surgery Left History of cancer surgery LLE History of carpal tunnel release Right History of section X 1 History of cholecystectomy lap [place]: 07/20/20: Grade view 3, MAC#3.0, ETT 7.0 at [facility] History of colonoscopy History of elbow surgery Left History of ERCP History of hip surgery x 2 - Left History of lumbar surgery x2 History of tonsillectomy and adenoidectomy 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) Family History Mother Anxiety Cardiac disorder Father Cardiac disorder Myocardial infarction Hypertension Grandmother (Maternal) Diabetes Other No family history of adverse response to anesthesia Social History Smoking Status: Never smoker Second Hand Exposure: No; Do You Dip or Chew Tobacco: No; Hx Alcohol Use: No Hx Substance Use: No Preferred Language: Mongolian Communication Ability: Effective Picker And Sorter Load And Unload Required: No Beliefs That Will Affect Care: None marital status: Current Living Situation: Spouse and Family Current Living Situation Comment: Lives at home with , daughter, and son Other Information That Helps Us Care for You: No Feels Safe at Home: Yes Safety Concerns: Feels Safe At This Time Assistive Devices: Denture - Upper, Denture - Lower, Glasses, Hearing Aid - Bilateral and Wheelchair Allergies Allergies Allergy/AdvReac Type Severity Reaction Status Date / Time vancomycin AdvReac Severe WORSENING Verified 07/21/23 01:03 RENAL FUNCTION cetirizine AdvReac Intermediate BOWEL Verified 07/21/23 01:03 CRAMPS gabapentin [From Neurontin] AdvReac Unknown DID NOT Verified 07/21/23 01:41 WORK FOR PAIN Home Meds Home Medications Medication Instructions Recorded Confirmed atorvastatin 20 mg tablet 20 mg PO HS 05/21/19 07/21/23 aspirin 81 mg chewable tablet 81 mg PO BID 06/18/20 07/21/23 multivitamin 1 tab PO QAM 06/18/20 07/21/23 buspirone 10 mg tablet 10 mg PO BID 06/19/20 07/21/23 tizanidine 4 mg tablet (Zanaflex) 2 mg PO HS PRN Muscle Spasm 06/19/20 07/21/23 acetaminophen 650 mg 650 mg PO Q8H PRN Pain 12/31/21 07/21/23 tablet,extended release (Tylenol 8 Hour) amitriptyline 25 mg tablet 75 mg PO HS 12/31/21 07/21/23 docusate sodium 100 mg capsule 100 mg PO BID 12/31/21 07/21/23 (Colace) omega 2-erc-hrn-fish oil 1,000 mg See Rx Instructions .Route .COMPLEX 12/31/21 07/21/23 (120 mg-180 mg) capsule (Fish Oil) polysaccharide iron complex 150 mg 150 mg PO DIRECTED 12/31/21 07/21/23 iron capsule alendronate 70 mg tablet 70 mg PO WK 07/21/23 07/21/23 amlodipine 10 mg tablet 10 mg PO QAM 07/21/23 07/21/23 cholecalciferol (vitamin D3) 25 1,000 unit PO DAILY 07/21/23 07/21/23 mcg (1,000 unit) tablet (Vitamin D3) hydrocodone 10 mg-acetaminophen 1 tab PO BID PRN .severe pain 07/21/23 07/21/23 325 mg tablet losartan 25 mg tablet 25 mg PO QAM 07/21/23 07/21/23 oxycodone 10 mg tablet,crush 10 mg PO QAM 07/21/23 07/21/23 resistant,extended release 12 hr (OxyContin) pregabalin 150 mg capsule 150 mg PO TID 07/21/23 07/21/23 sulfamethoxazole 800 1 tab PO AMHS 07/21/23 07/21/23 mg-trimethoprim 160 mg tablet (Bactrim DS) Results & Data (ED) Vital Signs Vital Signs - 24 hr 07/20/23 17:52 07/21/23 01:06 Temperature 36.9 C Temperature Source Temporal Artery Scan Pulse Rate 86 Pulse Rate [Apical] 66 Respiratory Rate 18 19 Respiratory Effort / Characteristics Non-Labored Spontaneous Respiratory Depth Normal Respiratory Pattern Regular Blood Pressure 155/79 H Blood Pressure [Left Arm] 129/61 Blood Pressure Mean 104 Blood Pressure Mean [Left Arm] 83 Blood Pressure Position Sitting Pulse Oximetry 95 96 Oxygen Delivery Method Room Air Sepsis Recent Fever Within 48 Hours No Sepsis New/Unexplained Change in Mental Status N/A Sepsis Action Taken by Nursing No Action Required Laboratory Data 07/20/23 18:27 07/20/23 18:27 Lab Results 07/20/23 07/20/23 07/20/23 Range/Units 18:27 18:27 18:27 WBC 9.87 (4.8-10.8) K/ul RBC 4.40 (4.20-5.40) M/uL Hgb 12.0 (12.0-16.0) g/dl Hct 37.5 (37.0-47.0) % MCV 85.2 (80.0-100.0) fL MCH 27.3 (25.0-34.0) pg MCHC 32.0 (32.0-36.0) g/dL RDW Std Deviation 41.9 (36.4-46.3) fL RDW Coeff of Leslie 13.4 (11.5-14.5) % Plt Count 350 (130-400) K/uL MPV 10.7 (9.4-12.4) fL Immature Gran % (Auto) 0.2 % Neut % (Auto) 58.2 % Lymph % (Auto) 26.8 % Schleicher % (Auto) 7.9 % Eos % (Auto) 6.2 % Baso % (Auto) 0.7 % Neut # (Auto) 5.74 (1.40-6.50) K/uL Lymph # (Auto) 2.65 (1.20-3.40) K/uL Schleicher # (Auto) 0.78 H (0.11-0.59) K/uL Eos # (Auto) 0.61 H (0.00-0.50) K/uL Baso # (Auto) 0.07 (0.00-0.20) K/uL Immature Gran # (Auto) 0.02 (0.01-0.20) K/uL Sodium 139 (136-145) mmol/L Potassium 4.0 (3.5-5.1) mmol/L Chloride 105 (98-107) mmol/L Carbon Dioxide 25 (21-32) mmol/L Anion Gap 9 (3-11) BUN 20 (6-23) mg/dl Creatinine 0.72 (0.6-1.2) mg/dl Est Cr Clr Drug Dosing Not Reportable Est GFR ( Amer) 97.0 ml/min Est GFR (Non-Af Amer) 83.7 ml/min BUN/Creatinine Ratio 27.8 H (10-20) Glucose 110 H (70-99(Fasting)) mg/dl Lactate 1.6 (0.4-2.0) mmol/L Calcium 10.0 (8.6-10.3) mg/dl Total Bilirubin 0.2 (0.2-1.0) mg/dl AST 20 (13-39) U/L ALT 13 (7-52) U/L Alkaline Phosphatase 233 H (34-104) U/L C-Reactive Protein 6.92 H (0-0.5) mg/dl Total Protein 8.5 H (6.0-8.3) gm/dl Albumin 4.1 (3.4-5.0) gm/dl Globulin 4.4 H (2.5-4.0) gm/dl Albumin/Globulin Ratio 0.9 (0.9-2) Administered Medications Sodium Chloride (Nss) 1,000 mls @ 80 mls/hr IV .[id number] ENRIQUE Stop: 07/22/23 07:04 Last Admin: 07/21/23 06:11 Dose: 80 mls/hr Documented By: CMK Discontinued Medications Daptomycin 300 mg/ Syringe 6 mls @ 3 mls/min IV NOW STA; Protocol Stop: 07/21/23 02:25 Last Admin: 07/21/23 03:13 Dose: 3 mls/min Documented By: DUANE Discharge Plan Visit Data Chief Complaint: Infection, Wound Stated Complaint: MERCA WOUND ON LT LEG ED Provider: Janay Koroma ED Midlevel Provider: Joanna Mckeon Discharge Problem: Leg wound, left, History of methicillin resistant staphylococcus aureus (MRSA), History of osteomyelitis Patient Disposition: Admitted As Inpatient Discharge Instructions Interventions: ED Discharge Assessment Last Done: 07/21/23 05:06
[2023-07-21 01:05] LABS: C Reactive Protein 6.92 mg/dl (0-0.5)
[2023-07-21] MEDS ORDERED: DAPTOmycin 300 MG in SYRINGE 0 ML IV STA (02:24)
--- NOTE | 2023-07-21 02:56 | History & Physical Report ---
Date of Service July 21, 2023 Assessment & Plan (1) Infection of amputation site of lower extremity: Plan: 71-year-old female with past medical history significant for dyslipidemia, superior mesenteric artery stenosis, hypertension, patent foramen ovale, history of peripheral vascular disease, rectocele, cystocele, polyneuropathy, iron deficiency anemia due to chronic blood loss, history of left above-knee amputation, colostomy status presents with infection of left above-knee amputation site. Infection of left above-knee amputation site Outpatient cultures growing MRSA X-rays done July 14, 2023 no osteomyelitis Started on IV Dapto Consult orthopedics in a.m. N.p.o. until seen by orthopedics Gentle fluids Monitor the response History of peripheral artery disease On aspirin and statin S/p colostomy Patient had history of severe abdominal pain and abdominal protrusion life flighted to [facility] and had bowel resection Was told she does not have Crohn's Hypertension On amlodipine, losartan We will monitor S/p left above-knee amputation in 2017 Continue home pain medications Hyperlipidemia On statin DVT prophylaxis SCDs. If no procedure planned can place on Lovenox Disposition Medr Full code History of Present Illness Chief Complaint: Left above-knee amputation site infection Primary Care Provider: Sara Santos MD 71-year-old female with past medical history significant for dyslipidemia, superior mesenteric artery stenosis, hypertension, patent foramen ovale, history of peripheral vascular disease, rectocele, cystocele, polyneuropathy, iron deficiency anemia due to chronic blood loss, history of left above-knee amputation, colostomy status presents with infection of left above-knee amputation site. Patient was prescribed Keflex she is currently on 7th-day of keflex but outpatient blood cultures were growing MRSA. Saw sports medicine and advised to come to the ER for any need of I&D. X-ray done as outpatient shows no osteomyelitis. Has a lot of pain in the infection site. Denies any fevers. Patient states she is wheelchair-bound. Currently resting comfortably and hemodynamic stable. Denies any headache. No blurred visions. No earache or runny nose or sore throat. No cough. Appetite is okay. No difficulty swallowing. No chest pain or shortness of breath. No nausea or vomiting. No abdominal pain. Normal bowel and bladder movements. Past medical history. As mentioned above. Past surgical history. Left above-knee amputation. Left SFA atherectomy. C- section. EGD. ERCP. Left foot surgery. Left thigh sarcoma x2 surgery. Laparoscopic cholecystectomy. Ligation of oviducts. Lumbar spine fusion surgery. Left hip bone mass removal. Radiation treatment. Left hip surgery revision. Left total hip replacement. Tonsillectomy. Social history. Former smoker quit smoking in 2013. Alcohol rarely. No drug use. Family history. Father had heart disorder. DVT. Hypertension. Mother has NE. Sister of PE. Allergies Allergy/AdvReac Type Severity Reaction Status Date / Time vancomycin AdvReac Severe WORSENING Verified 07/21/23 01:03 RENAL FUNCTION cetirizine AdvReac Intermediate BOWEL Verified 07/21/23 01:03 CRAMPS gabapentin [From Neurontin] AdvReac Unknown DID NOT Verified 07/21/23 01:41 WORK FOR PAIN Home Medications Medication Instructions Recorded Confirmed Type atorvastatin 20 mg tablet 20 mg PO HS 05/21/19 07/21/23 History aspirin 81 mg chewable tablet 81 mg PO BID 06/18/20 07/21/23 History multivitamin 1 tab PO QAM 06/18/20 07/21/23 History buspirone 10 mg tablet 10 mg PO BID 06/19/20 07/21/23 History tizanidine 4 mg tablet (Zanaflex) 2 mg PO HS PRN Muscle Spasm 06/19/20 07/21/23 History acetaminophen 650 mg 650 mg PO Q8H PRN Pain 12/31/21 07/21/23 History tablet,extended release (Tylenol 8 Hour) amitriptyline 25 mg tablet 75 mg PO HS 12/31/21 07/21/23 History docusate sodium 100 mg capsule 100 mg PO BID 12/31/21 07/21/23 History (Colace) omega 1-fbg-bmg-fish oil 1,000 mg See Rx Instructions .Route .COMPLEX 12/31/21 07/21/23 History (120 mg-180 mg) capsule (Fish Oil) polysaccharide iron complex 150 mg 150 mg PO DIRECTED 12/31/21 07/21/23 History iron capsule alendronate 70 mg tablet 70 mg PO WK 07/21/23 07/21/23 History amlodipine 10 mg tablet 10 mg PO QAM 07/21/23 07/21/23 History cholecalciferol (vitamin D3) 25 1,000 unit PO DAILY 07/21/23 07/21/23 History mcg (1,000 unit) tablet (Vitamin D3) hydrocodone 10 mg-acetaminophen 1 tab PO BID PRN .severe pain 07/21/23 07/21/23 History 325 mg tablet losartan 25 mg tablet 25 mg PO QAM 07/21/23 07/21/23 History oxycodone 10 mg tablet,crush 10 mg PO QAM 07/21/23 07/21/23 History resistant,extended release 12 hr (OxyContin) pregabalin 150 mg capsule 150 mg PO TID 07/21/23 07/21/23 History sulfamethoxazole 800 1 tab PO AMHS 07/21/23 07/21/23 History mg-trimethoprim 160 mg tablet (Bactrim DS) Past Med/Surg History Medical History Bile duct stone Hearing deficit BL FABIAN History of anxiety Hx of sarcoma of bone LLE; h/o surgery, radiation treatment 1989 Hyperlipidemia Hypertension Lab test negative for COVID-19 virus Near syncope Osteoarthritis PAD (peripheral artery disease) PFO (patent foramen ovale) Pre-syncope Presence of pessary Superior mesenteric artery stenosis Weakness Surgical History History of ankle surgery Left History of cancer surgery LLE History of carpal tunnel release Right History of section X 1 History of cholecystectomy lap [place]: 07/20/20: Grade view 3, MAC#3.0, ETT 7.0 at [facility] History of colonoscopy History of elbow surgery Left History of ERCP History of hip surgery x 2 - Left History of lumbar surgery x2 History of tonsillectomy and adenoidectomy 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) Family History Mother Anxiety Cardiac disorder Father Cardiac disorder Myocardial infarction Hypertension Grandmother (Maternal) Diabetes Other No family history of adverse response to anesthesia Social History Smoking Status: Never smoker Second Hand Exposure: No; Do You Dip or Chew Tobacco: No; Hx Alcohol Use: No Hx Substance Use: No Preferred Language: Kosovan Communication Ability: Effective Emt I/85 Required: No Beliefs That Will Affect Care: None marital status: Current Living Situation: Spouse and Family Current Living Situation Comment: Lives at home with , daughter, and son Other Information That Helps Us Care for You: No Feels Safe at Home: Yes Safety Concerns: Feels Safe At This Time Assistive Devices: Denture - Upper, Denture - Lower, Glasses, Hearing Aid - Bilateral and Wheelchair Review of Systems Review of Systems: All systems reviewed & are unremarkable except as noted in HPI & below Physical Exam Physical Exam: General- Not in distress. Head- atraumatic Eyes- PERRL. ENT- oropharynx clear Neck- supple, no JVD. Lungs- clear to auscultation , no wheezing or crackles. Heart- regular rate and rhythm; no murmur, no gallop. Abdomen- normal bowel sounds, soft, nontender, no distension Extremities- s/p left AKA. Amputation site erythematous with some drainage. Neuro- alert, oriented x 3; PERRL,; no facial palsy; no dysarthria; obeys commands Results & Data Results & Data Vital Signs (Past 12 Hours) Vital Signs Temp Pulse Pulse Resp BP BP Pulse Ox 07/21/23 01:06 66 19 129/61 96 07/20/23 17:52 36.9 C 86 18 155/79 H 95 O2 Del Method 07/21/23 01:06 07/20/23 17:52 Room Air Diagnostic Findings Laboratory Results WBC 9.87 K/ul (4.8-10.8) 07/20/23 18: RBC 4.40 M/uL (4.20-5.40) 07/20/23 18:27 Hgb 12.0 g/dl (12.0-16.0) 07/20/23 18:27 Hct 37.5 % (37.0-47.0) 07/20/23 18: MCV 85.2 fL (80.0-100.0) 07/20/23 18:27 MCH 27.3 pg (25.0-34.0) 07/20/23 18:27 MCHC 32.0 g/dL (32.0-36.0) 07/20/23 18:27 RDW Std Deviation 41.9 fL (36.4-46.3) 07/20/23 18:27 RDW Coeff of Leslie 13.4 % (11.5-14.5) 07/20/23 18: Plt Count 350 K/uL (130-400) 07/20/23 18: MPV 10.7 fL (9.4-12.4) 07/20/23 18: Immature Gran % (Auto) 0.2 % 07/20/23 18: Neut % (Auto) 58.2 % 07/20/23 18: Lymph % (Auto) 26.8 % 07/20/23 18: [place] % (Auto) 7.9 % 07/20/23 18: Eos % (Auto) 6.2 % 07/20/23 18: Baso % (Auto) 0.7 % 07/20/23 18: Neut # (Auto) 5.74 K/uL (1.40-6.50) 07/20/23 18: Lymph # (Auto) 2.65 K/uL (1.20-3.40) 07/20/23 18: [place] # (Auto) 0.78 K/uL (0.11-0.59) H 07/20/23 18: Eos # (Auto) 0.61 K/uL (0.00-0.50) H 07/20/23 18: Baso # (Auto) 0.07 K/uL (0.00-0.20) 07/20/23 18: Immature Gran # (Auto) 0.02 K/uL (0.01-0.20) 07/20/23 18: Sodium 139 mmol/L (136-145) 07/20/23 18: Potassium 4.0 mmol/L (3.5-5.1) 07/20/23 18: Chloride 105 mmol/L (98-107) 07/20/23 18: Carbon Dioxide 25 mmol/L (21-32) 07/20/23 18: Anion Gap 9 (3-11) 07/20/23 18: BUN 20 mg/dl (6-23) 07/20/23 18: Creatinine 0.72 mg/dl (0.6-1.2) 07/20/23 18: Est Cr Clr Drug Dosing Not Reportable 07/20/23 18 Est GFR ( Amer) 97.0 ml/min 07/20/23 18:27 Est GFR (Non-Af Amer) 83.7 ml/min 07/20/23 18: BUN/Creatinine Ratio 27.8 (10-20) H 07/20/23 18: Glucose 110 mg/dl (70-99(Fasting)) H 07/20/23 18: Lactate 1.6 mmol/L (0.4-2.0) 07/20/23 18: Calcium 10.0 mg/dl (8.6-10.3) 07/20/23 18: Total Bilirubin 0.2 mg/dl (0.2-1.0) 07/20/23 18: AST 20 U/L (13-39) 07/20/23 18:27 ALT 13 U/L (7-52) 07/20/23 18: Alkaline Phosphatase 233 U/L (34-104) H 07/20/23 18:27 C-Reactive Protein 6.92 mg/dl (0-0.5) H 07/20/23 18: Total Protein 8.5 gm/dl (6.0-8.3) H 07/20/23 18: Albumin 4.1 gm/dl (3.4-5.0) 07/20/23 18: Globulin 4.4 gm/dl (2.5-4.0) H 07/20/23 18:27 Albumin/Globulin Ratio 0.9 (0.9-2) 07/20/23 18:27 Code Status & VTE Plan VTE Prophylaxis Plan VTE Prophylaxis will be ordered: Yes
[2023-07-21] MEDS ORDERED: tiZANidine HCL 4 MG TABLET PO PRN (06:05)
[2023-07-21] MEDS ORDERED: POLYETHYLENE (MIRALAX) 17 GM PACK PO PRN (06:05)
[2023-07-21] MEDS: SODIUM CHLORIDE 0.9% 1,000 ML IV SCH ×3 (06:11→19:44)
[2023-07-21] MEDS: oxyCODONE HCL 10 MG TABCR (OxyCONTIN) PO SCH (09:15)
[2023-07-21] MEDS: busPIRone 5 MG TAB PO SCH ×2 (09:15→22:01)
[2023-07-21] MEDS: DOCUSATE SODIUM 100 MG CAP PO SCH ×2 (09:16→21:06)
[2023-07-21] MEDS: IRON POLYSACCHARIDE COMPLEX 150 MG CAPSULE PO SCH (09:16)
[2023-07-21] MEDS: MULTIVITAMIN TAB PO SCH (09:17)
[2023-07-21] MEDS: CHOLECALCIFEROL 1,000 UNITS 25 MCG TAB PO SCH (09:17)
[2023-07-21] MEDS: PREGABALIN 150 MG CAP PO SCH ×3 (09:22→21:06)
[2023-07-21] MEDS: amLODIPine BESYLATE 5 MG TAB PO SCH (10:05)
[2023-07-21] MEDS: ASPIRIN 81 MG CHEW PO SCH ×2 (10:05→21:06)
[2023-07-21] MEDS: LOSARTAN POTASSIUM 25 MG TAB PO SCH (10:05)
--- NOTE | 2023-07-21 11:16 | XRay Report ---
XR femur LT 2V routine CLINICAL HISTORY: history of AKA left knee MRSA TECHNIQUE: 2 radiographic views of the left femur were obtained. Comparison: Comparison is made to left femur radiographs 03/03/2021 FINDINGS: Left femoral nail is seen. No evidence of acute fracture or loosening. No evidence of erosions to sug gest osteomyelitis. The visualized portion of the hip and knee joints are unremarkable. Vascular calc ifications are noted. IMPRESSION: No erosions to suggest osteomyelitis. ACT 112: Negative or not required by law. Electronically signed by: Alvin Bach M.D. 07/21/2023 11:14 AM
--- NOTE | 2023-07-21 11:23 | Orthopedic Consultation ---
Date of Consultation July 21, 2023 Assessment & Plan (1) Infection of amputation site of lower extremity: Was seen and examined independently. Case will be discussed with Dr. Renner. Patient's records were reviewed that were accessible and [facility] as well as [facility]. She had a a culture obtained that grew out MRSA. She was started on daptomycin while in the ER. We will try to obtain culture results. Continue with IV antibiotics at this time. New imaging was completed per report that was interpreted by radiologist negative for osteomyelitis. Patient will remain n.p.o. until seen and evaluated further and case being discussed with Dr. Renner. Patient is nonambulatory. Recommend hospitalist continue to manage pain control and DVT prophylaxis. Present on Admission?: Yes History of Present Illness Requesting Physician: Dr. Avila Attending Physician: Berna Gloria MD History of Present Illness Patient is a 73-year-old female who is a known patient to Dr. Renner. Our services were asked to consult patient due to cellulitis with positive MRSA cultures of [id number] amputation. Patient explains that she had seen her primary care doctor approximately 2 weeks ago due to having 2 sores on her stump that started draining a yellowish fluid. She states she did not have much redness at that time and she was provided Keflex for an antibiotic and the primary care doctor did obtain a culture. She was also referred to see an orthopedist/sports medicine doctor in [place] that was from [facility]. She states there was concern because the culture came back MRSA that she could need surgical intervention so she was advised to go to [facility] yesterday. She states she arrived at the ER and was evaluated. After reviewing the ER note it is noted that they had access to an x-ray report that was done of the left stump and per the ER note there is no findings of osteomyelitis. She states the symptoms seem to get worse and she had more drainage as well as redness. It was noted that Bactrim was sent to her pharmacy approximately 2 days ago per the report and she did not pick it up. She was admited to the hospitalist service due to infection/cellulitis of the left AKA and started on IV antibiotics, Dapto. She states she does not typically have feeling there however she does have some discomfort especially if she bumps the stump area. States she is wheelchair-bound she has not had a prosthesis. She denies any fever, chills, night sweats, nausea or vomiting. She has been n.p.o. since at approximately 11 AM. She was previously seen by Dr. Renner and had a through the left knee amputation on 02/14/2017. She was last seen in our office as an outpatient at 03/03/2021 per the office note in [facility] orthopedics with Dr. 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 She also has a history of a hip fracture that was treated by Dr. Wynne. Allergies Allergy/AdvReac Type Severity Reaction Status Date / Time vancomycin AdvReac Severe WORSENING Verified 07/21/23 01:03 RENAL FUNCTION cetirizine AdvReac Intermediate BOWEL Verified 07/21/23 01:03 CRAMPS gabapentin [From Neurontin] AdvReac Unknown DID NOT Verified 07/21/23 01:41 WORK FOR PAIN Home Medications Medication Instructions Recorded Confirmed Type atorvastatin 20 mg tablet 20 mg PO HS 05/21/19 07/21/23 History aspirin 81 mg chewable tablet 81 mg PO BID 06/18/20 07/21/23 History multivitamin 1 tab PO QAM 06/18/20 07/21/23 History buspirone 10 mg tablet 10 mg PO BID 06/19/20 07/21/23 History tizanidine 4 mg tablet (Zanaflex) 2 mg PO HS PRN Muscle Spasm 06/19/20 07/21/23 History acetaminophen 650 mg 650 mg PO Q8H PRN Pain 12/31/21 07/21/23 History tablet,extended release (Tylenol 8 Hour) amitriptyline 25 mg tablet 75 mg PO HS 12/31/21 07/21/23 History docusate sodium 100 mg capsule 100 mg PO BID 12/31/21 07/21/23 History (Colace) omega 8-ykq-jyn-fish oil 1,000 mg See Rx Instructions .Route .COMPLEX 12/31/21 07/21/23 History (120 mg-180 mg) capsule (Fish Oil) polysaccharide iron complex 150 mg 150 mg PO DIRECTED 12/31/21 07/21/23 History iron capsule alendronate 70 mg tablet 70 mg PO WK 07/21/23 07/21/23 History amlodipine 10 mg tablet 10 mg PO QAM 07/21/23 07/21/23 History cholecalciferol (vitamin D3) 25 1,000 unit PO DAILY 07/21/23 07/21/23 History mcg (1,000 unit) tablet (Vitamin D3) hydrocodone 10 mg-acetaminophen 1 tab PO BID PRN .severe pain 07/21/23 07/21/23 History 325 mg tablet losartan 25 mg tablet 25 mg PO QAM 07/21/23 07/21/23 History oxycodone 10 mg tablet,crush 10 mg PO QAM 07/21/23 07/21/23 History resistant,extended release 12 hr (OxyContin) pregabalin 150 mg capsule 150 mg PO TID 07/21/23 07/21/23 History sulfamethoxazole 800 1 tab PO AMHS 07/21/23 07/21/23 History mg-trimethoprim 160 mg tablet (Bactrim DS) Patient History Medical History Bile duct stone Hearing deficit BL FABIAN History of anxiety Hx of sarcoma of bone LLE; h/o surgery, radiation treatment 1989 Hyperlipidemia Hypertension Lab test negative for COVID-19 virus Near syncope Osteoarthritis PAD (peripheral artery disease) PFO (patent foramen ovale) Pre-syncope Presence of pessary Superior mesenteric artery stenosis Weakness Surgical History History of ankle surgery Left History of cancer surgery LLE History of carpal tunnel release Right History of section X 1 History of cholecystectomy lap [place]: 07/20/20: Grade view 3, MAC#3.0, ETT 7.0 at [facility] History of colonoscopy History of elbow surgery Left History of ERCP History of hip surgery x 2 - Left History of lumbar surgery x2 History of tonsillectomy and adenoidectomy 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) Family History Mother Anxiety Cardiac disorder Father Cardiac disorder Myocardial infarction Hypertension Grandmother (Maternal) Diabetes Other No family history of adverse response to anesthesia Social History Smoking Status: Never smoker Second Hand Exposure: No; Do You Dip or Chew Tobacco: No; Hx Alcohol Use: No Hx Substance Use: No Preferred Language: Sami Communication Ability: Effective Alarm Mechanism Adjuster Required: No Beliefs That Will Affect Care: None marital status: Current Living Situation: Spouse and Family Current Living Situation Comment: Lives at home with , daughter, and son Other Information That Helps Us Care for You: No Feels Safe at Home: Yes Safety Concerns: Feels Safe At This Time Assistive Devices: Denture - Upper, Denture - Lower, Glasses, Hearing Aid - Bilateral and Wheelchair Review of Systems Review of Systems: please refer to HPI Physical Exam Physical Exam: General: patient is alert and oriented x3 answering questions appropriately no acute distress Musculoskeletal/Integumentary: Left lower extremity was examined. There is a dressing in place negative for any soiling. This was removed. There is erythematous area surrounding the distal stump. There is multiple open sores with drainage that is yellow/brownish in color. Negative for any odor. Reports mild tenderness at the distal stump with palpation. Dressing was reapplied that consisted of Telfa dressing, Kerlix and an Rajat wrap. Her left lower extremity is contracted and is unable to lay flat on the bed. She declined pillow. Results & Data Vital Signs (Past 12 Hours) Vital Signs Temp Pulse Pulse Resp BP Pulse Ox O2 Del Method 07/21/23 09:11 98 H 138/79 07/21/23 07:27 37 C 87 87 16 153/69 H 96 Room Air 07/21/23 06:05 36.9 C 98 H 18 133/62 98 Room Air 07/21/23 04:57 69 19 139/62 95 Room Air 07/21/23 01:06 66 19 129/61 96 Laboratory Results 07/20/23 07/20/23 07/20/23 Range/Units 18:27 18:27 18:27 WBC 9.87 (4.8-10.8) K/ul RBC 4.40 (4.20-5.40) M/uL Hgb 12.0 (12.0-16.0) g/dl Hct 37.5 (37.0-47.0) % MCV 85.2 (80.0-100.0) fL MCH 27.3 (25.0-34.0) pg MCHC 32.0 (32.0-36.0) g/dL RDW Std Deviation 41.9 (36.4-46.3) fL RDW Coeff of Leslie 13.4 (11.5-14.5) % Plt Count 350 (130-400) K/uL MPV 10.7 (9.4-12.4) fL Immature Gran % (Auto) 0.2 % Neut % (Auto) 58.2 % Lymph % (Auto) 26.8 % [place] % (Auto) 7.9 % Eos % (Auto) 6.2 % Baso % (Auto) 0.7 % Neut # (Auto) 5.74 (1.40-6.50) K/uL Lymph # (Auto) 2.65 (1.20-3.40) K/uL [place] # (Auto) 0.78 H (0.11-0.59) K/uL Eos # (Auto) 0.61 H (0.00-0.50) K/uL Baso # (Auto) 0.07 (0.00-0.20) K/uL Immature Gran # (Auto) 0.02 (0.01-0.20) K/uL Sodium 139 (136-145) mmol/L Potassium 4.0 (3.5-5.1) mmol/L Chloride 105 (98-107) mmol/L Carbon Dioxide 25 (21-32) mmol/L Anion Gap 9 (3-11) BUN 20 (6-23) mg/dl Creatinine 0.72 (0.6-1.2) mg/dl Est Cr Clr Drug Dosing Not Reportable Est GFR ( Amer) 97.0 ml/min Est GFR (Non-Af Amer) 83.7 ml/min BUN/Creatinine Ratio 27.8 H (10-20) Glucose 110 H (70-99(Fasting)) mg/dl Lactate 1.6 (0.4-2.0) mmol/L Calcium 10.0 (8.6-10.3) mg/dl Total Bilirubin 0.2 (0.2-1.0) mg/dl AST 20 (13-39) U/L ALT 13 (7-52) U/L Alkaline Phosphatase 233 H (34-104) U/L C-Reactive Protein 6.92 H (0-0.5) mg/dl Total Protein 8.5 H (6.0-8.3) gm/dl Albumin 4.1 (3.4-5.0) gm/dl Globulin 4.4 H (2.5-4.0) gm/dl Albumin/Globulin Ratio 0.9 (0.9-2) Diagnostic Findings Femur X-Ray 07/21/23 10:35 XR femur LT 2V routine CLINICAL HISTORY: history of AKA left knee MRSA TECHNIQUE: 2 radiographic views of the left femur were obtained. Comparison: Comparison is made to left femur radiographs 03/03/2021 FINDINGS: Left femoral nail is seen. No evidence of acute fracture or loosening. No evidence of erosions to suggest osteomyelitis. The visualized portion of the hip and knee joints are unremarkable. Vascular calcifications are noted. IMPRESSION: No erosions to suggest osteomyelitis. ACT 112: Negative or not required by law. Electronically signed by: Alvin Bach M.D. 07/21/2023 11:14 AM
[2023-07-21] MEDS: ACETAMINOPHEN 325 MG TAB PO PRN (11:42)
[2023-07-21] MEDS ORDERED: fentaNYL citrate PF 100 MCG/2 ML VIAL ONE (16:29)
[2023-07-21] MEDS ORDERED: ONDANSETRON INJ 2 MG/ML 2 ML VIAL ONE (16:31)
[2023-07-21] MEDS ORDERED: LIDOCAINE 2% 2 ML VIAL/AMP(20MG/ML) INFIL ONE (16:31)
[2023-07-21] MEDS ORDERED: PROPOFOL IV EMULSION 10 MG/ML 20 ML VIAL IV ONE (16:31)
[2023-07-21] MEDS ORDERED: ATROPINE SULFATE 0.1 MG/ML 10ML SYR IV PRN (16:33)
--- NOTE | 2023-07-21 16:33 | Anesthesiology Consultation ---
Date of Service July 21, 2023 Assessment & Plan Chart Review Chart Review: Acceptable Risk for Surgery Consults Requested none History Surgery Operation Date: 07/21/23 08:10 Proposed Procedures p Incision and Drainage Left Knee Amputation - Bolivar Renner MD Height/Weight Height: 5 ft 4 in Weight: 68.447 kg Allergies Allergy/AdvReac Type Severity Reaction Status Date / Time vancomycin AdvReac Severe WORSENING Verified 07/21/23 01:03 RENAL FUNCTION cetirizine AdvReac Intermediate BOWEL Verified 07/21/23 01:03 CRAMPS gabapentin [From Neurontin] AdvReac Unknown DID NOT Verified 07/21/23 01:41 WORK FOR PAIN Medications Home Medications Medication Instructions Recorded Confirmed Last Taken atorvastatin 20 mg tablet 20 mg PO HS 05/21/19 07/21/23 12/30/21 aspirin 81 mg chewable tablet 81 mg PO BID 06/18/20 07/21/23 12/31/21 multivitamin 1 tab PO QAM 06/18/20 07/21/23 12/31/21 buspirone 10 mg tablet 10 mg PO BID 06/19/20 07/21/23 12/31/21 tizanidine 4 mg tablet (Zanaflex) 2 mg PO HS PRN Muscle Spasm 06/19/20 07/21/23 10/13/20 21:30 acetaminophen 650 mg 650 mg PO Q8H PRN Pain 12/31/21 07/21/23 Unknown tablet,extended release (Tylenol 8 Hour) amitriptyline 25 mg tablet 75 mg PO HS 12/31/21 07/21/23 12/30/21 docusate sodium 100 mg capsule 100 mg PO BID 12/31/21 07/21/23 12/31/21 (Colace) omega 7-onk-shs-fish oil 1,000 mg See Rx Instructions .Route .COMPLEX 12/31/21 07/21/23 12/31/21 (120 mg-180 mg) capsule (Fish Oil) polysaccharide iron complex 150 mg 150 mg PO DIRECTED 12/31/21 07/21/23 12/31/21 iron capsule alendronate 70 mg tablet 70 mg PO WK 07/21/23 07/21/23 Unknown amlodipine 10 mg tablet 10 mg PO QAM 07/21/23 07/21/23 Unknown cholecalciferol (vitamin D3) 25 1,000 unit PO DAILY 07/21/23 07/21/23 Unknown mcg (1,000 unit) tablet (Vitamin D3) hydrocodone 10 mg-acetaminophen 1 tab PO BID PRN .severe pain 07/21/23 07/21/23 Unknown 325 mg tablet losartan 25 mg tablet 25 mg PO QAM 07/21/23 07/21/23 Unknown oxycodone 10 mg tablet,crush 10 mg PO QAM 07/21/23 07/21/23 Unknown resistant,extended release 12 hr (OxyContin) pregabalin 150 mg capsule 150 mg PO TID 07/21/23 07/21/23 Unknown sulfamethoxazole 800 1 tab PO AMHS 07/21/23 07/21/23 Unknown mg-trimethoprim 160 mg tablet (Bactrim DS) Active Medications Generic Name Dose Route Start Last Admin Trade Name Freq PRN Reason Stop Dose Admin Acetaminophen 650 mg 07/21/23 06:05 07/21/23 11:42 Acetaminophen 325 Mg Tab PO 08/20/23 06:04 650 mg Q4H PRN Administration pain/fever Amlodipine Besylate 10 mg 07/21/23 09:00 07/21/23 10:05 Amlodipine Besylate 5 Mg Tab PO 08/20/23 08:59 10 mg QAM ENRIQUE Administration Aspirin 81 mg 07/21/23 09:00 07/21/23 10:05 Aspirin 81 Mg Chew PO 08/20/23 08:59 81 mg BID ENRIQUE Administration Buspirone HCl 10 mg 07/21/23 09:00 07/21/23 09:15 Buspirone 5 Mg Tab PO 08/20/23 08:59 10 mg BID ENRIQUE Administration Docusate Sodium 100 mg 07/21/23 09:00 07/21/23 09:16 Docusate Sodium 100 Mg Cap PO 08/20/23 08:59 100 mg BID ENRIQUE Administration Sodium Chloride 1,000 mls @ 80 mls/hr 07/21/23 06:05 07/21/23 06:11 Nss IV 07/22/23 07:04 80 mls/hr .[id number] ENRIQUE Administration Losartan Potassium 25 mg 07/21/23 09:00 07/21/23 10:05 Losartan Potassium 25 Mg Tab PO 08/20/23 08:59 25 mg QAM ENRIQUE Administration Multivitamins 1 tab 07/21/23 09:00 07/21/23 09:17 Multivitamin Tab PO 08/20/23 08:59 1 tab QAM ENRIQUE Administration Oxycodone HCl 10 mg 07/21/23 09:00 07/21/23 09:15 Oxycodone Hcl 10 Mg Tabcr (Oxycontin) PO 08/04/23 08:59 10 mg QAM ENRIQUE Administration Polysaccharide Iron Complex 150 mg 07/21/23 09:00 07/21/23 09:16 Iron Polysaccharide Complex 150 Mg Capsule PO 08/20/23 08:59 150 mg [id number] ENRIQUE Administration Pregabalin 150 mg 07/21/23 09:00 07/21/23 13:31 Pregabalin 150 Mg Cap PO 08/20/23 08:59 150 mg TID ENRIQUE Administration Vitamin D 1,000 units 07/21/23 09:00 07/21/23 09:17 Cholecalciferol 1,000 Units 25 Mcg Tab PO 08/20/23 08:59 1,000 units DAILY ENRIQUE Administration Past Medical History Medical History Bile duct stone Hearing deficit BL FABIAN History of anxiety Hx of sarcoma of bone LLE; h/o surgery, radiation treatment 1989 Hyperlipidemia Hypertension Lab test negative for COVID-19 virus Near syncope Osteoarthritis PAD (peripheral artery disease) PFO (patent foramen ovale) Pre-syncope Presence of pessary Superior mesenteric artery stenosis Weakness Past Family History Family History Mother Anxiety Cardiac disorder Father Cardiac disorder Myocardial infarction Hypertension Grandmother (Maternal) Diabetes Other No family history of adverse response to anesthesia Past Surgical History Surgical History History of ankle surgery Left History of cancer surgery LLE History of carpal tunnel release Right History of section X 1 History of cholecystectomy lap [place]: 07/20/20: Grade view 3, MAC#3.0, ETT 7.0 at [facility] History of colonoscopy History of elbow surgery Left History of ERCP History of hip surgery x 2 - Left History of lumbar surgery x2 History of tonsillectomy and adenoidectomy 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) Social History Smoking Status: Never smoker tobacco type: cigarettes Do You Dip or Chew Tobacco: No Hx Alcohol Use: No Hx Substance Use: No substance use type: does not use Physical Exam Vital Signs Last Vital Signs Temp 36.7 C 07/21/23 14:36 Pulse 74 07/21/23 14:36 Resp 16 07/21/23 14:36 BP 130/69 07/21/23 14:36 Pulse Ox 93 07/21/23 14:36 O2 Del Method Room Air 07/21/23 14:36 Testing Laboratory Results 07/20/23 18:27 07/20/23 18:27
--- NOTE | 2023-07-21 16:52 | Hospitalist Progress Note ---
Date of Service July 21, 2023 Assessment & Plan (1) Infection of amputation site of lower extremity: Plan: 71-year-old female with past medical history significant for dyslipidemia, superior mesenteric artery stenosis, hypertension, patent foramen ovale, history of peripheral vascular disease, rectocele, cystocele, polyneuropathy, iron deficiency anemia due to chronic blood loss, history of left above-knee amputation, colostomy status presents with infection of left above-knee amputation site. Infection of left above-knee amputation site Outpatient cultures growing MRSA X-rays done July 14, 2023 no osteomyelitis Started on IV Dapto Appreciate orthopedic input and recommendation of I&D this afternoon We will continue the small dose of intravenous fluid Pain medications as needed We will continue with intravenous antibiotic with IV Dapto She may need further surgery as per Ortho evaluation History of peripheral artery disease On aspirin and statin S/p colostomy Patient had history of severe abdominal pain and abdominal protrusion life fli ghted to [facility] and had bowel resection Was told she does not have Crohn's Colostomy drainage is good Hypertension On amlodipine, losartan We will monitor Blood pressure remains normal S/p left above-knee amputation in 2017 Continue home pain medications Hyperlipidemia On statin DVT prophylaxis SCDs. If no procedure planned can place on Lovenox Disposition MedSur Full code Admission and Anticipated Discharge Date Admission Date: July 21, 2023 Subjective 07/21/2023 The patient was seen and examined in medical floor She was admitted with discharge and wounds from the left leg stump Denies any fever and or chills, no abdominal pain nausea and or vomiting, no chest pain and/or palpitation Review of Systems Review of Systems: All systems reviewed and are unremarkable except as noted below Physical Exam Physical Exam: Lying in bed comfortably Constitutional: well developed, well nourished, + ill appearing and + obese Eyes: PERRL, conjunctivae normal, anicteric sclerae ENMT: external ear and nose normal, oropharynx normal Neck: trachea midline, no thyromegaly Respiratory: no respiratory distress Auscultation: lungs clear to auscultation bilaterally Cardiovascular: Rate/Rhythm: regular rate and regular rhythm; not tachycardic Heart Sounds: normal S1 and normal S2; no murmur Extremities: no edema (Edema on the right side and she has left AKA) Gastrointestinal (Abdomen): Inspection/Auscultation: normal bowel sounds; abdomen not distended Percussion/Palpation: abdomen soft; abdomen nontender Musculoskeletal: Has right knee pain with movement due to osteoarthritis, left AKA stump is minimally painful Neurologic: no focal motor deficits Lymphatic: no cervical or axillary lymphadenopathy Results & Data Results & Data Vital Signs (Past 12 Hours) Vital Signs Temp Pulse Pulse Resp BP Pulse Ox O2 Del Method 07/21/23 14:36 36.7 C 74 16 130/69 93 Room Air 07/21/23 09:11 98 H 138/79 07/21/23 07:27 37 C 87 87 16 153/69 H 96 Room Air 07/21/23 06:05 36.9 C 98 H 18 133/62 98 Room Air 07/21/23 04:57 69 19 139/62 95 Room Air Laboratory Results Short CBC 07/20/23 Range/Units 18:27 WBC 9.87 (4.8-10.8) K/ul Hgb 12.0 (12.0-16.0) g/dl Hct 37.5 (37.0-47.0) % Plt Count 350 (130-400) K/uL BMP 07/20/23 18:27 Sodium 139 Potassium 4.0 Chloride 105 Carbon Dioxide 25 BUN 20 Creatinine 0.72 Glucose 110 H Calcium 10.0 Liver Function 07/20/23 Range/Units 18:27 Total Bilirubin 0.2 (0.2-1.0) mg/dl AST 20 (13-39) U/L ALT 13 (7-52) U/L Alkaline Phosphatase 233 H (34-104) U/L Albumin 4.1 (3.4-5.0) gm/dl Medications Administered Current Inpatient Medications Acetaminophen (Acetaminophen 325 Mg Tab) 650 mg PO Q4H PRN PRN Reason: pain/fever Stop: 08/20/23 06:04 Last Admin: 07/21/23 11:42 Dose: 650 mg Hydrocodone Bitart/Acetaminophen (Hydrocodone/Acetaminophen 10/325 Tab) 1 tab PO BID PRN PRN Reason: .severe pain Stop: 08/04/23 06:04 Amitriptyline HCl (Amitriptyline Hcl 25 Mg Tab) 75 mg PO HS ENRIQUE Stop: 08/20/23 20:59 Amlodipine Besylate (Amlodipine Besylate 5 Mg Tab) 10 mg PO QAM ENRIQUE Stop: 08/20/23 08:59 Last Admin: 07/21/23 10:05 Dose: 10 mg Aspirin (Aspirin 81 Mg Chew) 81 mg PO BID [facility] Stop: 08/20/23 08:59 Last Admin: 07/21/23 10:05 Dose: 81 mg Atorvastatin Calcium (Atorvastatin 20 Mg Tab) 20 mg PO HS [facility] Stop: 08/20/23 20:59 Atropine Sulfate (Atropine Sulfate 0.1 Mg/Ml 10ml Syr) 0.5 mg IV Q1M PRN PRN Reason: PACU Use-HR<40 &/or Bradycardi Stop: 07/22/23 00:33 Buspirone HCl (Buspirone 5 Mg Tab) 10 mg PO BID [facility] Stop: 08/20/23 08:59 Last Admin: 07/21/23 09:15 Dose: 10 mg Docusate Sodium (Docusate Sodium 100 Mg Cap) 100 mg PO BID [facility] Stop: 08/20/23 08:59 Last Admin: 07/21/23 09:16 Dose: 100 mg Daptomycin 300 mg/ Syringe 6 mls @ 3 mls/min IV DAILY [facility]; Protocol Stop: 07/29/23 08:59 Sodium Chloride (Nss) 1,000 mls @ 80 mls/hr IV .[id number] [facility] Stop: 07/22/23 07:04 Last Infusion: 07/21/23 16:34 Dose: 0 mls/hr Losartan Potassium (Losartan Potassium 25 Mg Tab) 25 mg PO QAM [facility] Stop: 08/20/23 08:59 Last Admin: 07/21/23 10:05 Dose: 25 mg Multivitamins (Multivitamin Tab) 1 tab PO QAM [facility] Stop: 08/20/23 08:59 Last Admin: 07/21/23 09:17 Dose: 1 tab Oxycodone HCl (Oxycodone Hcl 10 Mg Tabcr (Oxycontin)) 10 mg PO QAM [facility] Stop: 08/04/23 08:59 Last Admin: 07/21/23 09:15 Dose: 10 mg Polyethylene Glycol (Polyethylene (Miralax) 17 Gm Pack) 17 gm PO DAILY PRN PRN Reason: Constipation Stop: 08/20/23 06:04 Polysaccharide Iron Complex (Iron Polysaccharide Complex 150 Mg Capsule) 150 mg PO [id number] [facility] Stop: 08/20/23 08:59 Last Admin: 07/21/23 09:16 Dose: 150 mg Pregabalin (Pregabalin 150 Mg Cap) 150 mg PO TID [facility] Stop: 08/20/23 08:59 Last Admin: 07/21/23 13:31 Dose: 150 mg Tizanidine HCl (Tizanidine Hcl 4 Mg Tablet) 2 mg PO HS PRN PRN Reason: Muscle Spasm Stop: 08/20/23 06:04 Vitamin D (Cholecalciferol 1,000 Units 25 Mcg Tab) 1,000 units PO DAILY [facility] Stop: 08/20/23 08:59 Last Admin: 07/21/23 09:17 Dose: 1,000 units
[2023-07-21] MEDS ORDERED: PHENYLEPHRINE HCL 10 MG/ML VIAL ONE (17:31)
[2023-07-21] MEDS ORDERED: ePHEDrine sulfate 50 MG/5 ML SYR ONE (17:31)
[2023-07-21] MEDS ORDERED: ROCURONIUM BROMIDE 10 MG/ML 5 ML VIAL IV ONE (17:31)
[2023-07-21] MEDS ORDERED: GLYCOPYRROLATE 0.2 MG/ML VIAL ONE (17:44)
[2023-07-21] MEDS ORDERED: SUGAMMADEX SODIUM 200 MG/2 ML VIAL IV ONE (17:49)
--- NOTE | 2023-07-21 18:08 | Operative Report ---
Post Operative Report Pre & Post Diagnosis Operation Date: 07/21/23 08:10 Pre-Op Diagnosis: Wound infection left through knee amputation Post-Op Diagnosis: Superficial wound infection status post left through knee amputation I identified the patient and participated in the time-out.: Yes Procedure Operation Date: 07/21/23 08:10 Actual Procedures p Incision and Drainage Left Knee Amputation(Left) - Bolivar Renner MD Surgeon Bolivar Renner MD Collar Sewer Mariama MORELOS no resident or fellow available Estimated Blood Loss 2 Findings Consistent with Post-Op Diagnosis Specimens Cultures x2 left knee Drains None Anesthesia Type General Complications none Disposition Accompanied Patient To Recovery: No Disposition: Recovery Room Indications Eda is status post radiation to her left hip area for a sarcoma. Subsequently she developed a hip fracture which was treated with surgery x2. She had a chronic wound on her left leg which necessitated a through knee amputation about 7 years ago. She did well until about 3 weeks ago when she started to have some drainage from the terminal end of her residual left limb. This may have come from minor trauma. She was admitted to the hospital. Outpatient culture showed MRSA. Examination showed what appeared to be multiple abscesses involving the distal stump. I recommended I&D and she agreed to proceed. Description of Procedure Informed consent. Patient identified. She identified the operative site as the left knee area. I marked with my initials. A preop surgical timeout performed. A preop dose of IV antibiotics was given. She was taken to the OR positioned supine on the operating room table. Anesthetic administered. No tourniquet utilized. The leg was prescrubbed and then prepped and draped in usual sterile fashion. Of note she had about a 45 degree hip flexion contracture and 10 to 15 degree abduction contracture. There was woody fibrosis of the hip area. The terminal end of the residual limb had an area of softening and fluctuance posteriorly about 3 cm in diameter consistent with a subcutaneous abscess. There were multiple punctate areas along the previous transverse surgical incision distally where there was granulation tissue and drainage. There were multiple areas in total of about 10-15 of varying size where there were openings and drainage of pus. At the previous surgery of the anterior and posterior tissues were likely wrapped around the end of the distal femur. The patella was preserved. There was not any evidence of osteomyelitis and nothing that showed evidence of swelling within the residual knee joint. DVT prophylaxis will be done with mechanical devices and chemoprophylaxis postop. I made a transverse incision about two thirds across from lateral to medial involving the old incision. Immediately upon opening the incision was noted to be purulent material. This appeared to be a superficial. Subcutaneous. Culture obtained. With blunt dissection a plane was developed between the joint area and subcutaneous tissues. There was some granulation tissue and purulence in this area and culture #1 was additionally placed into this area as well. There were multiple breaks in the skin where the infection had broken through. These were curettaged with a curette and debrided with a rongeur. Where these were close together and nonviable I coalesced them together into a larger area. Blunt dissection did reveal that they did communicate mainly with the subcutaneous tissues but also went deeper down into that layer between the subcu and knee joint. They were thoroughly debrided with curette and rongeur as well as sharp excision with the scalpel. Posteriorly there was a 3 cm area where I made a longitudinal incision and creamy pus came out of that culture #2 was obtained there. This was also debrided with rongeur. Everything was then irrigated with 3 L of normal saline sterile. Nothing coursed deep to the knee. There is no knee effusion and I do not think that aspiration or anything into that region was necessary. The subcutaneous abscesses did track medially but they were probed as best as possible and found not to extend any further. All of the areas mentioned above posterior distal in the main transverse incision were packed with quarter inch iodoform gauze. The wound was then loosely approximated with near far far near stitches using 3-0 nylon. The leg was cleaned with wet and dry sponges and a soft sterile dressing was applied Xeroform 4 x 4's ABD soft wrap Rajat wrap. Patient awakened from anesthesia without difficulty. Taken to recovery in stable condition. Specimens were as mentioned above counts correct blood loss estimated to be 2 cc. There was minimal bleeding. We will continue postop antibiotics and do wound care. Consider wound care consult as indicated. I attest to the content of the Intraoperative Record and any orders documented therein. Any exceptions are noted below.
--- NOTE | 2023-07-21 18:20 | Operative Report ---
Post Operative Report Pre & Post Diagnosis Operation Date: 07/21/23 08:10 Pre-Op Diagnosis: LEFT LEG INFECTION Post-Op Diagnosis: LEFT LEG INFECTION I identified the patient and participated in the time-out.: Yes Procedure Operation Date: 07/21/23 08:10 Actual Procedures p Incision and Drainage Left Knee Amputation(Left) - Bolivar Renner MD Surgeon Bolivar Renner M.D. Lead Material Handler Mariama MORELOS no resident or fellow available Estimated Blood Loss 2 Findings Consistent with Post-Op Diagnosis Specimens Intra-op cultures Anesthesia Type General Description of Procedure Patient was taken to the operating room, placed under general anesthesia. Time out performed, given 2 gm IV Ancef for surgical prophylaxis. I was present during the entire case and assisted with irrigation, debridement and closure. Patient was awakened and taken to the recovery room in stable condition. Please see Dr. Renner's operative report for further detail regarding today's procedure. I attest to the content of the Intraoperative Record and any orders documented therein. Any exceptions are noted below.
--- NOTE | 2023-07-21 18:26 | Anesthesiology Progress Note ---
Date of Service July 21, 2023 Anesthesia Post Procedure Vital Signs Vital Signs: Temp Pulse Pulse Resp BP Pulse Ox O2 Del Method 07/21/23 16:46 36.9 C 90 18 143/64 H 94 Room Air 07/21/23 14:36 36.7 C 74 16 130/69 93 Room Air 07/21/23 09:11 98 H 138/79 07/21/23 07:27 37 C 87 87 16 153/69 H 96 Room Air 07/21/23 06:05 36.9 C 98 H 18 133/62 98 Room Air 07/21/23 04:57 69 19 139/62 95 Room Air 07/21/23 01:06 66 19 129/61 96 Pain Intensity Left Leg: Pain Intensity: 4 Transfer of Care Handoff Completed per policy Notes Mental Status: alert / awake / arousable Patient Amnestic to Procedure: Yes Nausea / Vomiting: adequately controlled Pain: adequately controlled Airway Patency, RR, SpO2: stable & adequate BP & HR: stable & adequate Hydration State: stable & adequate Anesthetic Complications: no major complications apparent and Pt Satisfied with anesthetic care
[2023-07-21] MEDS ORDERED: ONDANSETRON INJ 2 MG/ML 2 ML VIAL IV PRN (19:06)
[2023-07-21] MEDS ORDERED: HYDROmorphone INJ 0.5 MG/0.5 ML SYR IV PRN (19:06)
[2023-07-21] MEDS ORDERED: METOCLOPRAMIDE HCL INJ 5 MG/ML 2 ML VIAL IV PRN (19:06)
[2023-07-21] MEDS ORDERED: NALOXONE HCL 0.4 MG/1 ML VIAL/CARP IV PRN (19:06)
[2023-07-21] MEDS: HYDROcodone/ACETAMINOPHEN 10/325 TAB PO PRN (19:39)
[2023-07-21] MEDS: HYDROmorphone INJ 1 MG/ML SYRINGE IV PRN (21:05)
[2023-07-21] MEDS: AMITRIPTYLINE HCL 25 MG TAB PO SCH (22:01)
[2023-07-21] MEDS: ATORVASTATIN 20 MG TAB PO SCH (22:02)
[2023-07-22] MEDS: SODIUM CHLORIDE 0.9% 1,000 ML IV SCH (03:00)
[2023-07-22 06:54] LABS: Basophils # (auto) 0.01 K/uL (0.00-0.20); Basophils % (auto) 0.1 %; Hematocrit (blood only) 29.7 % (37.0-47.0); Hemoglobin 9.6 g/dl (12.0-16.0); Immature Granulocytes # (auto) 0.03 K/uL (0.01-0.20); Immature Granulocytes % (auto) 0.4 %; Lymphocytes # (auto) 1.13 K/uL (1.20-3.40); Lymphocytes % (auto) 15.8 %; Mean Corpuscular Hemoglobin 27.2 pg (25.0-34.0); Mean Corpuscular Hgb Conc 32.3 g/dL (32.0-36.0); Mean Corpuscular Volume 84.1 fL (80.0-100.0); Mean Platelet Volume 10.5 fL (9.4-12.4); Monocytes # (auto) 0.35 K/uL (0.11-0.59); Monocytes % (auto) 4.9 %; Neutrophils # (auto) 5.61 K/uL (1.40-6.50); Neutrophils % (auto) 78.8 %; Platelet Count 272 K/uL (130-400); RDW Coefficient of Variation 13.2 % (11.5-14.5); RDW Standard Deviation 40.4 fL (36.4-46.3); Red Blood Count 3.53 M/uL (4.20-5.40); White Blood Count 7.13 K/ul (4.8-10.8)
[2023-07-22 07:18] LABS: BUN Creatinine Ratio 29.3 (10-20); Calcium 8.4 mg/dl (8.6-10.3); Creatinine Clr Calc Pharmacy 83.3 ml/min; Est GFR (African American) 106.7 ml/min; Est GFR (Non-African American) 92.1 ml/min; Potassium 4.1 mmol/L (3.5-5.1)
[2023-07-22] MEDS: PREGABALIN 150 MG CAP PO SCH ×3 (09:14→19:48)
[2023-07-22] MEDS: oxyCODONE HCL 10 MG TABCR (OxyCONTIN) PO SCH (09:14)
[2023-07-22] MEDS: DAPTOmycin 300 MG in SYRINGE 0 ML IV SCH (09:15)
[2023-07-22] MEDS: LOSARTAN POTASSIUM 25 MG TAB PO SCH (09:46)
[2023-07-22] MEDS: amLODIPine BESYLATE 5 MG TAB PO SCH (09:46)
[2023-07-22] MEDS: busPIRone 5 MG TAB PO SCH ×2 (09:57→19:49)
[2023-07-22] MEDS: CHOLECALCIFEROL 1,000 UNITS 25 MCG TAB PO SCH (09:57)
[2023-07-22] MEDS: MULTIVITAMIN TAB PO SCH (09:57)
[2023-07-22] MEDS: ASPIRIN 81 MG CHEW PO SCH ×2 (09:58→19:48)
[2023-07-22] MEDS: DOCUSATE SODIUM 100 MG CAP PO SCH ×2 (10:03→19:48)
--- NOTE | 2023-07-22 10:08 | Orthopedic Progress Note ---
Date of Service July 22, 2023 Assessment & Plan (1) Infection of amputation site of lower extremity: Plan: Postop day 1-status post incision and drainage left amputation site wounds. May be out of bed as tolerated to chair or wheelchair. Ice and elevation as needed for pain and swelling. Continue IV antibiotics-daptomycin. We will continue to follow cultures taken intraoperatively. Postoperative dressings kept in place today. We will plan for dressing change tomorrow. She has multiple open wounds packed with iodoform. Continue regular diet. Call with any questions or concerns. Patient understands and agrees with the plan. Findings will be discussed with Dr. Renner. Will reeval and plan for dressing change tomorrow. Admission and Anticipated Discharge Date Admission Date: July 21, 2023 Subjective Patient is sleeping in bed. Resting comfortably. States she has no significant pain. Left leg is elevated on a pillow. She denies any chest pain or shortness of breath. She states she had a good breakfast and denies any postoperative nausea. Has not been out of bed since surgery. Physical Exam Musculoskeletal: Exam of her left lower extremity: Postoperative dressings are clean, dry and intact. Not removed today. Flexion contracture of her left hip is present. Pillow was adjusted under her left leg for comfort. Results & Data Vital Signs (Past 12 Hours) Vital Signs Temp Pulse Resp BP BP Pulse Ox O2 Del Method 07/22/23 09:12 74 108/56 L 97 Nasal Cannula 07/22/23 06:07 36.4 C L 77 15 103/61 90 Nasal Cannula 07/22/23 02:00 36.5 C 72 18 104/64 90 Nasal Cannula O2 Flow Rate 07/22/23 09:12 2 07/22/23 06:07 2 07/22/23 02:00 2 Laboratory Results 07/22/23 07/22/23 Range/Units 06:36 06:36 WBC 7.13 (4.8-10.8) K/ul RBC 3.53 L (4.20-5.40) M/uL Hgb 9.6 L (12.0-16.0) g/dl Hct 29.7 L (37.0-47.0) % MCV 84.1 (80.0-100.0) fL MCH 27.2 (25.0-34.0) pg MCHC 32.3 (32.0-36.0) g/dL RDW Std Deviation 40.4 (36.4-46.3) fL RDW Coeff of Leslie 13.2 (11.5-14.5) % Plt Count 272 (130-400) K/uL MPV 10.5 (9.4-12.4) fL Immature Gran % (Auto) 0.4 % Neut % (Auto) 78.8 % Lymph % (Auto) 15.8 % [place] % (Auto) 4.9 % Eos % (Auto) 0.0 % Baso % (Auto) 0.1 % Neut # (Auto) 5.61 (1.40-6.50) K/uL Lymph # (Auto) 1.13 L (1.20-3.40) K/uL [place] # (Auto) 0.35 (0.11-0.59) K/uL Eos # (Auto) 0.00 (0.00-0.50) K/uL Baso # (Auto) 0.01 (0.00-0.20) K/uL Immature Gran # (Auto) 0.03 (0.01-0.20) K/uL Sodium 140 (136-145) mmol/L Potassium 4.1 (3.5-5.1) mmol/L Chloride 108 H (98-107) mmol/L Carbon Dioxide 24 (21-32) mmol/L Anion Gap 8 (3-11) BUN 17 (6-23) mg/dl Creatinine 0.58 L (0.6-1.2) mg/dl Est Cr Clr Drug Dosing 83.3 ml/min Est GFR ( Amer) 106.7 ml/min Est GFR (Non-Af Amer) 92.1 ml/min BUN/Creatinine Ratio 29.3 H (10-20) Glucose 113 H (70-99(Fasting)) mg/dl Calcium 8.4 L (8.6-10.3) mg/dl Microbiology 07/21/23 00:53 Aerobic Blood Culture - Preliminary Blood No growth in Aerobic bottle after 24 hours. Anaerobic Blood Culture - Final 07/20/23 18:27 Aerobic Blood Culture - Preliminary Blood No growth in Aerobic bottle after 24 hours. Anaerobic Blood Culture - Final 07/21/23 Unknown Gram Stain - Final Knee,Left 07/21/23 Unknown Gram Stain - Final Knee,Left intraoperative cultures obtained yesterday and showed no organisms. Pending.
--- NOTE | 2023-07-22 14:06 | Hospitalist Progress Note ---
Date of Service July 22, 2023 Assessment & Plan (1) Infection of amputation site of lower extremity: Plan: 71-year-old female with past medical history significant for dyslipidemia, superior mesenteric artery stenosis, hypertension, patent foramen ovale, history of peripheral vascular disease, rectocele, cystocele, polyneuropathy, iron deficiency anemia due to chronic blood loss, history of left above-knee amputation, colostomy status presents with infection of left above-knee amputation site. Infection of left above-knee amputation site Outpatient cultures growing MRSA X-rays done July 14, 2023 no osteomyelitis Started on IV Dapto Appreciate orthopedic input and recommendation for I&D -I & D done on 07/21 intravenous fluids, Pain medications as needed Continue IV Dapto History of peripheral artery disease On aspirin and statin S/p colostomy Patient had history of severe abdominal pain and abdominal protrusion [facility] Was told she does not have Crohn's Colostomy drainage stable Hypertension On amlodipine, losartan Blood pressure remains normal S/p left above-knee amputation in 2017 Continue home pain medications Hyperlipidemia On statin DVT prophylaxis:SCDs. Started on Lovenox Full code Disposition:pt/ot ordered Admission and Anticipated Discharge Date Admission Date: July 21, 2023 Subjective Pt was sleeping during my exam. Easily arousable but falls right back to sleep. Per nursing, she got IV Dilaudid over night and was more sleepy than usual. Review of Systems Review of Systems: Unobtainable due to reduced consciousness Physical Exam Physical Exam: General: Somnolent. No acute distress Skin: No noted rashes or bruises Psych: Mood could not be determined Neuro: Somnolent HEENT: NC/AT Chest: Nontender to palpation. CV: RRR, Normal s1, s2. No murmurs appreciated Resp: no increased effort of breathing. Abdomen: Soft, nontender, nondistended. Extremities: LLE bandaged stump Results & Data Results & Data Vital Signs (Past 12 Hours) Vital Signs Temp Pulse Resp BP BP Pulse Ox O2 Del Method 07/22/23 09:12 74 108/56 L 97 Nasal Cannula 07/22/23 06:07 36.4 C L 77 15 103/61 90 Nasal Cannula O2 Flow Rate 07/22/23 09:12 2 07/22/23 06:07 2
[2023-07-22] MEDS: AMITRIPTYLINE HCL 25 MG TAB PO SCH (19:49)
[2023-07-22] MEDS: ATORVASTATIN 20 MG TAB PO SCH (19:49)
[2023-07-22] MEDS: HYDROmorphone INJ 1 MG/ML SYRINGE IV PRN (19:53)
[2023-07-23] MEDS: ENOXAPARIN INJ 40 MG/0.4 ML SYR SQ SCH ×2 (00:05→20:36)
[2023-07-23] MEDS: oxyCODONE HCL 10 MG TABCR (OxyCONTIN) PO SCH (07:54)
[2023-07-23] MEDS: PREGABALIN 150 MG CAP PO SCH ×3 (07:55→20:35)
[2023-07-23] MEDS: ASPIRIN 81 MG CHEW PO SCH ×2 (07:55→20:36)
[2023-07-23] MEDS: DOCUSATE SODIUM 100 MG CAP PO SCH ×2 (07:55→20:35)
[2023-07-23] MEDS: busPIRone 5 MG TAB PO SCH ×2 (07:55→20:36)
[2023-07-23] MEDS: MULTIVITAMIN TAB PO SCH (07:55)
[2023-07-23] MEDS: DAPTOmycin 300 MG in SYRINGE 0 ML IV SCH (07:55)
[2023-07-23] MEDS: CHOLECALCIFEROL 1,000 UNITS 25 MCG TAB PO SCH (07:55)
--- NOTE | 2023-07-23 10:28 | Hospitalist Progress Note ---
Date of Service July 23, 2023 Assessment & Plan (1) Infection of amputation site of lower extremity: Plan: 71-year-old female with past medical history significant for dyslipidemia, superior mesenteric artery stenosis, hypertension, patent foramen ovale, history of peripheral vascular disease, rectocele, cystocele, polyneuropathy, iron deficiency anemia due to chronic blood loss, history of left above-knee amputation, colostomy status presents with infection of left above-knee amputation site. Infection of left above-knee amputation site Outpatient cultures growing MRSA X-rays done July 14, 2023 no osteomyelitis Started on IV Dapto Appreciate orthopedic recs -I & D done on 07/21 Intraop Cultures with NGTD at this time, blood Cx x2 with NGTD Continue IV Dapto Intravenous fluids, Pain medications as needed PT/OT History of peripheral artery disease On aspirin and statin S/p colostomy Patient had history of severe abdominal pain and abdominal protrusion life flighted to [facility] and had bowel resection Was told she does not have Crohn's Colostomy drainage stable Hypertension On amlodipine, losartan Blood pressure remains controlled S/p left above-knee amputation in 2016 Continue home pain medications Hyperlipidemia On statin Diet: Regular DVT prophylaxis:SCDs. Started on Lovenox Full code Disposition:pt/ot ordered Admission and Anticipated Discharge Date Admission Date: July 21, 2023 Subjective Was more alert today. States that she is eating well, putting out stool into her colostomy bag. Pain controlled. Denied other acute concerns. Review of Systems Review of Systems: All systems reviewed & are unremarkable except as noted in Subjective Physical Exam Physical Exam: General: No acute distress Skin: No noted rashes or bruises Psych: Appropriate mood and affect Neuro: AAOx3 HEENT: NC/AT Chest: Nontender to palpation. CV: RRR, Normal s1, s2. No murmurs appreciated Resp: no increased effort of breathing. Abdomen: Soft, nontender, nondistended. Extremities: LLE bandaged stump, no edema in RLE Results & Data Results & Data Vital Signs (Past 12 Hours) Vital Signs Temp Pulse Resp BP Pulse Ox O2 Del Method 07/23/23 07:15 36.5 C 80 16 138/71 92 Room Air
--- NOTE | 2023-07-23 11:20 | Orthopedic Progress Note ---
Date of Service July 23, 2023 Assessment & Plan (1) Infection of amputation site of lower extremity: Plan: Postop day 2-status post incision and drainage left amputation site wounds. May be out of bed as tolerated to chair or wheelchair. Ice and elevation as needed for pain and swelling. Continue IV antibiotics-daptomycin or as per medicine. We will continue to follow cultures taken intraoperatively. Dressing changed today. Removed the iodoform packing but did pack some gauze into each of the open areas. Continue regular diet. We will consult wound care nurse for further recommendations on wound care. Call with any questions or concerns. Patient understands and agrees with the plan. PT and OT evals. No need for further surgical intervention at this time. Dr. Renner present for today's visit. Patient understands and agrees with the plan. Will re-eval tomorrow. Admission and Anticipated Discharge Date Admission Date: July 21, 2023 Subjective Doing well, minimal pain. Tolerating food. On IV Daptomycin. Has been out of bed to chair. Physical Exam Musculoskeletal: Exam of her left lower extremity: Postoperative dressings were removed. There was some dried bloody drainage on the dressings. No active bleeding from any of the open wounds or incision. No reaccumulation of fluctuance or abscess. No purulent drainage when expressed. Mildly tender with palpation. Iodoform packing removed and new dressings applied. No significant edema. Capillary refill to the skin is brisk. No necrosis present. Results & Data Vital Signs (Past 12 Hours) Vital Signs Temp Pulse Resp BP Pulse Ox O2 Del Method 07/23/23 07:15 36.5 C 80 16 138/71 92 Room Air Laboratory Results Microbiology 07/21/23 00:53 Aerobic Blood Culture - Preliminary Blood No growth in Aerobic bottle after 48 hours. Anaerobic Blood Culture - Final 07/20/23 18:27 Aerobic Blood Culture - Preliminary Blood No growth in Aerobic bottle after 48 hours. Anaerobic Blood Culture - Final 07/21/23 Unknown Gram Stain - Final Knee,Left Aerobic and Anaerobic Culture - Preliminary No growth to date. 07/21/23 Unknown Gram Stain - Final Knee,Left Aerobic and Anaerobic Culture - Preliminary No growth to date.
[2023-07-23 11:52] LABS: Basophils # (auto) 0.03 K/uL (0.00-0.20); Basophils % (auto) 0.4 %; Eosinophils # (auto) 0.46 K/uL (0.00-0.50); Eosinophils % (auto) 6.3 %; Hematocrit (blood only) 32.2 % (37.0-47.0); Hemoglobin 10.2 g/dl (12.0-16.0); Immature Granulocytes # (auto) 0.03 K/uL (0.01-0.20); Immature Granulocytes % (auto) 0.4 %; Lymphocytes # (auto) 1.97 K/uL (1.20-3.40); Lymphocytes % (auto) 26.9 %; Mean Corpuscular Hemoglobin 27.2 pg (25.0-34.0); Mean Corpuscular Hgb Conc 31.7 g/dL (32.0-36.0); Mean Corpuscular Volume 85.9 fL (80.0-100.0); Mean Platelet Volume 10.3 fL (9.4-12.4); Monocytes # (auto) 0.61 K/uL (0.11-0.59); Monocytes % (auto) 8.3 %; Neutrophils # (auto) 4.23 K/uL (1.40-6.50); Neutrophils % (auto) 57.7 %; Platelet Count 261 K/uL (130-400); RDW Coefficient of Variation 13.4 % (11.5-14.5); RDW Standard Deviation 42.1 fL (36.4-46.3); Red Blood Count 3.75 M/uL (4.20-5.40); White Blood Count 7.33 K/ul (4.8-10.8)
[2023-07-23 12:09] LABS: Albumin Level 3.4 gm/dl (3.4-5.0); BUN Creatinine Ratio 36.2 (10-20); Bilirubin,Total 0.2 mg/dl (0.2-1.0); Calcium 8.7 mg/dl (8.6-10.3); Creatinine Clr Calc Pharmacy 102.8 ml/min; Est GFR (African American) 114.4 ml/min; Est GFR (Non-African American) 98.7 ml/min; Globulin 3.5 gm/dl (2.5-4.0); Magnesium 1.7 mg/dl (1.7-2.4); Phosphorus 1.9 mg/dl (2.5-4.9); Total Protein 6.9 gm/dl (6.0-8.3)
[2023-07-23] MEDS ORDERED: POTASSIUM PHOS 3 MMOL/1 ML INFUSION IV STA (12:35)
[2023-07-23] MEDS ORDERED: POTASSIUM PHOSPHATE 24 MMOL in SODIUM CHLORIDE 0.9% 500 ML IV ONE (12:45)
[2023-07-23] MEDS: HYDROcodone/ACETAMINOPHEN 10/325 TAB PO PRN (12:58)
[2023-07-23] MEDS: AMITRIPTYLINE HCL 25 MG TAB PO SCH (20:35)
[2023-07-23] MEDS: ATORVASTATIN 20 MG TAB PO SCH (20:35)
[2023-07-23] MEDS: HYDROmorphone INJ 1 MG/ML SYRINGE IV PRN (20:40)
[2023-07-24 08:11] LABS: Basophils # (auto) 0.05 K/uL (0.00-0.20); Basophils % (auto) 0.8 %; Eosinophils # (auto) 0.52 K/uL (0.00-0.50); Eosinophils % (auto) 7.9 %; Hematocrit (blood only) 32.8 % (37.0-47.0); Hemoglobin 10.5 g/dl (12.0-16.0); Immature Granulocytes # (auto) 0.02 K/uL (0.01-0.20); Immature Granulocytes % (auto) 0.3 %; Lymphocytes # (auto) 2.08 K/uL (1.20-3.40); Lymphocytes % (auto) 31.8 %; Mean Corpuscular Hemoglobin 26.9 pg (25.0-34.0); Mean Corpuscular Volume 84.1 fL (80.0-100.0); Mean Platelet Volume 10.2 fL (9.4-12.4); Monocytes # (auto) 0.56 K/uL (0.11-0.59); Monocytes % (auto) 8.5 %; Neutrophils # (auto) 3.32 K/uL (1.40-6.50); Neutrophils % (auto) 50.7 %; Platelet Count 292 K/uL (130-400); RDW Coefficient of Variation 13.5 % (11.5-14.5); RDW Standard Deviation 41.2 fL (36.4-46.3); White Blood Count 6.55 K/ul (4.8-10.8)
[2023-07-24 08:25] LABS: Albumin Globulin Ratio 0.9 (0.9-2); Albumin Level 3.5 gm/dl (3.4-5.0); BUN Creatinine Ratio 30.2 (10-20); Bilirubin,Total 0.2 mg/dl (0.2-1.0); Calcium 8.9 mg/dl (8.6-10.3); Creatinine Clr Calc Pharmacy 91.2 ml/min; Est GFR (African American) 109.9 ml/min; Est GFR (Non-African American) 94.9 ml/min; Globulin 3.7 gm/dl (2.5-4.0); Magnesium 1.8 mg/dl (1.7-2.4); Phosphorus 2.8 mg/dl (2.5-4.9); Total Protein 7.2 gm/dl (6.0-8.3)
[2023-07-24] MEDS: MULTIVITAMIN TAB PO SCH (08:59)
[2023-07-24] MEDS: IRON POLYSACCHARIDE COMPLEX 150 MG CAPSULE PO SCH (08:59)
[2023-07-24] MEDS: busPIRone 5 MG TAB PO SCH ×2 (08:59→21:12)
[2023-07-24] MEDS: DAPTOmycin 300 MG in SYRINGE 0 ML IV SCH (08:59)
[2023-07-24] MEDS: CHOLECALCIFEROL 1,000 UNITS 25 MCG TAB PO SCH (08:59)
[2023-07-24] MEDS: oxyCODONE HCL 10 MG TABCR (OxyCONTIN) PO SCH (08:59)
[2023-07-24] MEDS: PREGABALIN 150 MG CAP PO SCH ×3 (08:59→21:11)
[2023-07-24] MEDS: ASPIRIN 81 MG CHEW PO SCH ×2 (09:00→21:12)
[2023-07-24] MEDS: DOCUSATE SODIUM 100 MG CAP PO SCH ×2 (09:01→21:13)
--- NOTE | 2023-07-24 09:25 | Orthopedic Progress Note ---
Date of Service July 24, 2023 Assessment & Plan (1) Infection of amputation site of lower extremity: Plan: Postop day 3-status post incision and drainage left amputation site wounds. May be out of bed as tolerated to chair or wheelchair. Ice and elevation as needed for pain and swelling. Continue IV antibiotics-daptomycin or as per medicine. We will continue to follow cultures taken intraoperatively. Dressing changed 07/23. Removed the iodoform packing but did pack some gauze into each of the open areas. Continue regular diet. Wound care consult pending. Continue pain regiment Call with any questions or concerns. Patient understands and agrees with the plan. PT and OT evals. No need for further surgical intervention at this time. Plan discussed with Dr Renner. Patient understands and agrees with the plan. Admission and Anticipated Discharge Date Admission Date: July 21, 2023 Subjective Pt seen and examined bedside. She says she has some achiness but overall okay. She is eating okay. She denies F/C, CP, SOB, N/V. She has no further questions or concerns. Physical Exam Physical Exam: Dressing in-tact an not saturated. Patient is elevated with a pillow. Results & Data Vital Signs (Past 12 Hours) Vital Signs Temp Pulse Resp BP BP Pulse Ox O2 Del Method 07/24/23 07:13 36.8 C 74 18 145/74 H 93 Room Air 07/23/23 21:21 36.6 C 72 16 123/69 96 Room Air
[2023-07-24] MEDS: HYDROcodone/ACETAMINOPHEN 10/325 TAB PO PRN (11:36)
--- NOTE | 2023-07-24 16:02 | Hospitalist Progress Note ---
Date of Service July 24, 2023 Assessment & Plan (1) Infection of amputation site of lower extremity: Plan: 71-year-old female with past medical history significant for dyslipidemia, superior mesenteric artery stenosis, hypertension, patent foramen ovale, history of peripheral vascular disease, rectocele, cystocele, polyneuropathy, iron deficiency anemia due to chronic blood loss, history of left above-knee amputation, colostomy status presents with infection of left above-knee amputation site. Infection of left above-knee amputation site S/p left above-knee amputation in 2017 Outpatient cultures growing MRSA X-ray negative for osteomyelitis Ortho consulted 07/21 s/p I&D left AKA stump site On IV Dapto (day 4) Intraop Cultures with NGTD at this time, blood Cx x2 with NGTD Will discuss with Ortho antibiotic recommendations History of peripheral artery disease On aspirin and statin S/p colostomy Patient had history of severe abdominal pain and abdominal protrusion life flighted to [facility] and had bowel resection Was told she does not have Crohn's Colostomy drainage stable Hypertension Amlodipine and losartan on hold due to borderline hypotension BP remained stable DVT PROPHYLAXIS SQ Lovenox Dispo -likely DC home tomorrow Patient seen in collaboration with Dr. Gloria. Admission and Anticipated Discharge Date Admission Date: July 21, 2023 Supervising Physician Co-Signing Physician Notes 07/24/2023 Attending addendum The patient was seen and examined in the medical floor She is a status post debridement of left stamp Has been feeling better without any significant pain Is getting PT and OT evaluation Denies any other symptoms On examination Lying in bed without any acute distress Hemodynamically stable and afebrile So far the wound culture and blood culture have been negative Her medications, labs and imaging studies reviewed Has infection involving the left stamp status post debridement Cultures so far negative but outpatient culture came back positive for MRSA We will continue current management and await further recommendation from Ortho Agree with assessment and plan as outlined above by Ro Gloria Subjective Follow-up for infection of left AKA stump site. Patient seen and examined. Offers no complaints, reports she is doing well. Remains afebrile. No chest pain or shortness of breath. Denies abdominal pain and nausea. Physical Exam Constitutional: WD/WN, vitals as above no acute distress Respiratory: normal respiratory effort, lungs clear to auscultation Cardiovascular: Rate/Rhythm: regular rate and regular rhythm Vessels: normal peripheral pulses Extremities: no edema Gastrointestinal (Abdomen): Percussion/Palpation: abdomen soft; abdomen nontender Musculoskeletal: history of left AKA, dressing in place, CDI Skin: no rashes, warm and dry Neurologic: no focal motor deficits Psychiatric: A+Ox3, euthymic affect Results & Data Results & Data Vital Signs (Past 12 Hours) Vital Signs Temp Pulse Resp BP Pulse Ox O2 Del Method 07/24/23 15:13 36.7 C 72 17 114/71 94 Room Air 07/24/23 07:13 36.8 C 74 18 145/74 H 93 Room Air Laboratory Results Short CBC 07/24/23 Range/Units 07:35 WBC 6.55 (4.8-10.8) K/ul Hgb 10.5 L (12.0-16.0) g/dl Hct 32.8 L (37.0-47.0) % Plt Count 292 (130-400) K/uL BMP 07/24/23 07:35 Sodium 137 Potassium 4.0 Chloride 104 Carbon Dioxide 28 BUN 16 Creatinine 0.53 L Glucose 88 Calcium 8.9 Liver Function 07/24/23 Range/Units 07:35 Total Bilirubin 0.2 (0.2-1.0) mg/dl AST 15 (13-39) U/L ALT 10 (7-52) U/L Alkaline Phosphatase 195 H (34-104) U/L Albumin 3.5 (3.4-5.0) gm/dl
[2023-07-24] MEDS: HYDROmorphone INJ 1 MG/ML SYRINGE IV PRN (21:07)
[2023-07-24] MEDS: AMITRIPTYLINE HCL 25 MG TAB PO SCH (21:11)
[2023-07-24] MEDS: ATORVASTATIN 20 MG TAB PO SCH (21:12)
[2023-07-24] MEDS: ENOXAPARIN INJ 40 MG/0.4 ML SYR SQ SCH (21:14)
[2023-07-25 08:31] LABS: Basophils # (auto) 0.03 K/uL (0.00-0.20); Basophils % (auto) 0.4 %; Eosinophils # (auto) 0.62 K/uL (0.00-0.50); Eosinophils % (auto) 8.8 %; Hematocrit (blood only) 32.7 % (37.0-47.0); Hemoglobin 10.4 g/dl (12.0-16.0); Immature Granulocytes # (auto) 0.02 K/uL (0.01-0.20); Immature Granulocytes % (auto) 0.3 %; Lymphocytes # (auto) 1.97 K/uL (1.20-3.40); Mean Corpuscular Hgb Conc 31.8 g/dL (32.0-36.0); Mean Corpuscular Volume 84.9 fL (80.0-100.0); Mean Platelet Volume 10.3 fL (9.4-12.4); Monocytes # (auto) 0.54 K/uL (0.11-0.59); Monocytes % (auto) 7.7 %; Neutrophils # (auto) 3.86 K/uL (1.40-6.50); Neutrophils % (auto) 54.8 %; Platelet Count 285 K/uL (130-400); RDW Coefficient of Variation 13.6 % (11.5-14.5); RDW Standard Deviation 42.1 fL (36.4-46.3); Red Blood Count 3.85 M/uL (4.20-5.40); White Blood Count 7.04 K/ul (4.8-10.8)
[2023-07-25] MEDS: DAPTOmycin 300 MG in SYRINGE 0 ML IV SCH (08:36)
[2023-07-25] MEDS: ASPIRIN 81 MG CHEW PO SCH ×2 (08:36→20:22)
[2023-07-25] MEDS: PREGABALIN 150 MG CAP PO SCH ×3 (08:36→20:28)
[2023-07-25] MEDS: oxyCODONE HCL 10 MG TABCR (OxyCONTIN) PO SCH (08:36)
[2023-07-25] MEDS: CHOLECALCIFEROL 1,000 UNITS 25 MCG TAB PO SCH (08:37)
[2023-07-25] MEDS: DOCUSATE SODIUM 100 MG CAP PO SCH ×2 (08:37→16:12)
[2023-07-25] MEDS: MULTIVITAMIN TAB PO SCH (08:37)
[2023-07-25] MEDS: busPIRone 5 MG TAB PO SCH ×2 (08:37→20:23)
[2023-07-25 08:57] LABS: Albumin Globulin Ratio 0.9 (0.9-2); Albumin Level 3.4 gm/dl (3.4-5.0); Bilirubin,Total 0.3 mg/dl (0.2-1.0); Calcium 8.9 mg/dl (8.6-10.3); Creatinine Clr Calc Pharmacy 96.7 ml/min; Est GFR (African American) 112.1 ml/min; Est GFR (Non-African American) 96.7 ml/min; Globulin 3.7 gm/dl (2.5-4.0); Magnesium 1.9 mg/dl (1.7-2.4); Phosphorus 3.3 mg/dl (2.5-4.9); Total Protein 7.1 gm/dl (6.0-8.3)
--- NOTE | 2023-07-25 09:27 | Orthopedic Progress Note ---
Date of Service July 25, 2023 Assessment & Plan (1) Infection of amputation site of lower extremity: Plan: Postop day 4-status post incision and drainage left amputation site wounds. May be out of bed as tolerated to chair or wheelchair. Ice and elevation as needed for pain and swelling. Continue IV antibiotics-daptomycin or as per medicine. We will continue to follow cultures taken intraoperatively. Dressing changed 07/23. Removed the iodoform packing but did pack some gauze into each of the open areas. Continue regular diet. Wound care consult placed on 07/23, Spoke to RN she is contacting wound nurse today to f/u with this PT/OT Continue pain regimen PT and OT evals. No need for further surgical intervention at this time. Call with any questions or concerns. Patient understands and agrees with the plan. Present on Admission?: Yes Admission and Anticipated Discharge Date Admission Date: July 21, 2023 Subjective Patient is POD #4 s/p I&D of left AKA stump. Pt was seen bedside this am. RN was present and NEUROSURGEON. She is sitting upright eating breakfast. She is in good spirits. She states she has some pain in the left stump and rated 5-6/10. She reports she just got her pain medication and this has helped manage her pain. She denies any redness or drainage, fever or chills. She offers no concerns. Review of Systems Review of Systems: Please refer to HPI Physical Exam Physical Exam: General: A&Ox3 sitting upright in bed. No acute distress Integumentary. Dressing in place no drainage or soiling. No edema over the left stump. She has no complaints of tenderness over the distal stump mild tenderness more proximally. This area is normal in color and temperature. Results & Data Vital Signs (Past 12 Hours) Vital Signs Height Weight Body Mass Index Blood Pressure Blood Pressure Position Temperature Temperature Source 5 ft 4 in 68.447 kg 25.9 139/76 Semi-fowlers 36.5 C Oral 07/21/23 16:57 07/21/23 16:57 07/21/23 06:21 07/24/23 21:00 07/24/23 21:00 07/24/23 21:00 07/24/23 21:00 Pulse Rate Respiratory Rate Pulse Oximetry Oxygen Flow Rate 82 16 94 2 07/24/23 21:00 07/24/23 21:00 07/24/23 21:00 07/22/23 15:50 Laboratory Results 07/25/23 07/25/23 07/25/23 Range/Units 07:53 07:53 07:53 WBC 7.04 (4.8-10.8) K/ul RBC 3.85 L (4.20-5.40) M/uL Hgb 10.4 L (12.0-16.0) g/dl Hct 32.7 L (37.0-47.0) % MCV 84.9 (80.0-100.0) fL MCH 27.0 (25.0-34.0) pg MCHC 31.8 L (32.0-36.0) g/dL RDW Std Deviation 42.1 (36.4-46.3) fL RDW Coeff of Leslie 13.6 (11.5-14.5) % Plt Count 285 (130-400) K/uL MPV 10.3 (9.4-12.4) fL Immature Gran % (Auto) 0.3 % Neut % (Auto) 54.8 % Lymph % (Auto) 28.0 % Atkinson % (Auto) 7.7 % Eos % (Auto) 8.8 % Baso % (Auto) 0.4 % Neut # (Auto) 3.86 (1.40-6.50) K/uL Lymph # (Auto) 1.97 (1.20-3.40) K/uL Atkinson # (Auto) 0.54 (0.11-0.59) K/uL Eos # (Auto) 0.62 H (0.00-0.50) K/uL Baso # (Auto) 0.03 (0.00-0.20) K/uL Immature Gran # (Auto) 0.02 (0.01-0.20) K/uL Sodium 138 (136-145) mmol/L Potassium 4.0 (3.5-5.1) mmol/L Chloride 105 (98-107) mmol/L Carbon Dioxide 26 (21-32) mmol/L Anion Gap 7 (3-11) BUN 20 (6-23) mg/dl Creatinine 0.50 L (0.6-1.2) mg/dl Est Cr Clr Drug Dosing 96.7 ml/min Est GFR ( Amer) 112.1 ml/min Est GFR (Non-Af Amer) 96.7 ml/min BUN/Creatinine Ratio 40.0 H (10-20) Glucose 91 (70-99(Fasting)) mg/dl Calcium 8.9 (8.6-10.3) mg/dl Ionized Calcium 1.17 (1.12-1.32) mmol/L Phosphorus 3.3 (2.5-4.9) mg/dl Magnesium 1.9 (1.7-2.4) mg/dl Total Bilirubin 0.3 (0.2-1.0) mg/dl AST 13 (13-39) U/L ALT 9 (7-52) U/L Alkaline Phosphatase 210 H (34-104) U/L Total Protein 7.1 (6.0-8.3) gm/dl Albumin 3.4 (3.4-5.0) gm/dl Globulin 3.7 (2.5-4.0) gm/dl Albumin/Globulin Ratio 0.9 (0.9-2)
[2023-07-25] MEDS: HYDROcodone/ACETAMINOPHEN 10/325 TAB PO PRN (11:31)
[2023-07-25] MEDS ORDERED: Nursing to Pharmacy Communication SCH (13:45)
[2023-07-25] MEDS: DOXYCYCLINE HYCLATE 100 MG CAP PO SCH ×2 (14:15→20:23)
[2023-07-25] MEDS: ACETAMINOPHEN 325 MG TAB PO PRN (16:11)
--- NOTE | 2023-07-25 17:56 | Hospitalist Progress Note ---
Date of Service July 25, 2023 Assessment & Plan (1) Infection of amputation site of lower extremity: Plan: 71-year-old female with past medical history significant for dyslipidemia, superior mesenteric artery stenosis, hypertension, patent foramen ovale, history of peripheral vascular disease, rectocele, cystocele, polyneuropathy, iron deficiency anemia due to chronic blood loss, history of left above-knee amputation, colostomy status presents with infection of left above-knee amputation site. Infection of left above-knee amputation site S/p left above-knee amputation in 2017 Outpatient cultures growing MRSA X-ray negative for osteomyelitis Ortho consulted 07/21 s/p I&D left AKA stump site On IV Dapto (day 5) Intraop Cultures with NGTD at this time, blood Cx x2 with NGTD Discussed with orthopedics, no concern for osteomyelitis, infection only involved the superficial soft tissue. Will transition to p.o. doxycycline today and monitor response. Wound care nurse following. May need rehab for assistance with wound care and dressing changes. CM following. History of peripheral artery disease On aspirin and statin S/p colostomy Patient had history of severe abdominal pain and abdominal protrusion life flighted to [facility] and had bowel resection Was told she does not have Crohn's Colostomy drainage stable Hypertension Amlodipine and losartan on hold due to borderline hypotension BP remained stable DVT PROPHYLAXIS SQ Lovenox Dispo -likely DC tomorrow, rehab vs. home with Patient seen in collaboration with Dr. Gloria. Admission and Anticipated Discharge Date Admission Date: July 21, 2023 Supervising Physician Co-Signing Physician Notes Attending addendum: The patient was seen and examined in medical floor She has been feeling a lot better Denies any fever and or chills Does not have any pain in the left leg stump She was advised to go to rehab On examination No apparent distress at rest Hemodynamically stable Chestclear to auscultate bilaterally Abdomenbenign HeartS1-S2, regular The woundplease look at the picture Her labs, medications and imaging studies reviewed Has left leg stamp wound status post I&D Remains medically stable Agree with assessment and plan as outlined above by Ro Gloria Subjective Follow-up for infection of left AKA stump site. Patient seen and examined. Reports she is doing well. Eager to be discharged. Remains afebrile. Physical Exam Constitutional: WD/WN, vitals as above no acute distress Respiratory: normal respiratory effort, lungs clear to auscultation Cardiovascular: Rate/Rhythm: regular rate and regular rhythm Vessels: normal peripheral pulses Extremities: no edema Gastrointestinal (Abdomen): Percussion/Palpation: abdomen soft; abdomen nontender Musculoskeletal: S/p previous left AKA, dressing CDI Skin: no rashes, warm and dry Neurologic: no focal motor deficits Psychiatric: A+Ox3, euthymic affect Results & Data Results & Data Vital Signs (Past 12 Hours) Vital Signs Temp Pulse Resp BP BP Pulse Ox O2 Del Method 07/25/23 17:38 36.5 C 87 12 126/76 93 Room Air 07/25/23 15:53 Room Air 07/25/23 13:27 36.8 C 81 10 L 122/75 93 Room Air 07/25/23 11:47 36.7 C 83 16 117/71 93 Room Air 07/25/23 08:00 36.6 C 83 16 147/79 H 93 Room Air Laboratory Results Short CBC 07/25/23 Range/Units 07:53 WBC 7.04 (4.8-10.8) K/ul Hgb 10.4 L (12.0-16.0) g/dl Hct 32.7 L (37.0-47.0) % Plt Count 285 (130-400) K/uL BMP 07/25/23 07:53 Sodium 138 Potassium 4.0 Chloride 105 Carbon Dioxide 26 BUN 20 Creatinine 0.50 L Glucose 91 Calcium 8.9 Liver Function 07/25/23 Range/Units 07:53 Total Bilirubin 0.3 (0.2-1.0) mg/dl AST 13 (13-39) U/L ALT 9 (7-52) U/L Alkaline Phosphatase 210 H (34-104) U/L Albumin 3.4 (3.4-5.0) gm/dl
[2023-07-25] MEDS: AMITRIPTYLINE HCL 25 MG TAB PO SCH (20:24)
[2023-07-25] MEDS: ATORVASTATIN 20 MG TAB PO SCH (20:24)
[2023-07-25] MEDS: HYDROmorphone INJ 1 MG/ML SYRINGE IV PRN (20:25)
[2023-07-25] MEDS: ENOXAPARIN INJ 40 MG/0.4 ML SYR SQ SCH (20:25)
[2023-07-26] MEDS: DOCUSATE SODIUM 100 MG CAP PO SCH (07:48)
[2023-07-26] MEDS: MULTIVITAMIN TAB PO SCH (07:48)
[2023-07-26] MEDS: ASPIRIN 81 MG CHEW PO SCH (07:49)
[2023-07-26] MEDS: IRON POLYSACCHARIDE COMPLEX 150 MG CAPSULE PO SCH (07:49)
[2023-07-26] MEDS: CHOLECALCIFEROL 1,000 UNITS 25 MCG TAB PO SCH (07:49)
[2023-07-26] MEDS: DOXYCYCLINE HYCLATE 100 MG CAP PO SCH (07:49)
[2023-07-26] MEDS: PREGABALIN 150 MG CAP PO SCH ×2 (08:07→13:02)
[2023-07-26] MEDS: oxyCODONE HCL 10 MG TABCR (OxyCONTIN) PO SCH (08:07)
[2023-07-26 08:34] LABS: Hematocrit (blood only) 33.9 % (37.0-47.0); Hemoglobin 10.7 g/dl (12.0-16.0); Mean Corpuscular Hgb Conc 31.6 g/dL (32.0-36.0); Mean Corpuscular Volume 85.4 fL (80.0-100.0); Mean Platelet Volume 10.3 fL (9.4-12.4); Platelet Count 301 K/uL (130-400); RDW Coefficient of Variation 13.5 % (11.5-14.5); Red Blood Count 3.97 M/uL (4.20-5.40); White Blood Count 7.02 K/ul (4.8-10.8)
[2023-07-26] MEDS: LOSARTAN POTASSIUM 25 MG TAB PO SCH (09:41)
[2023-07-26] MEDS: busPIRone 5 MG TAB PO SCH (09:41)
[2023-07-26] MEDS: HYDROcodone/ACETAMINOPHEN 10/325 TAB PO PRN (11:11)
--- NOTE | 2023-07-26 17:16 | Discharge Summary ---
Date of Service July 26, 2023 Admission HPI Per Admitting Provider 71-year-old female with past medical history significant for dyslipidemia, superior mesenteric artery stenosis, hypertension, patent foramen ovale, history of peripheral vascular disease, rectocele, cystocele, polyneuropathy, iron deficiency anemia due to chronic blood loss, history of left above-knee amputation, colostomy status presents with infection of left above-knee amputation site. Patient was prescribed Keflex she is currently on 7th-day of keflex but outpatient blood cultures were growing MRSA. Saw sports medicine and advised to come to the ER for any need of I&D. X-ray done as outpatient shows no osteomyelitis. Has a lot of pain in the infection site. Denies any fevers. Patient states she is wheelchair-bound. Currently resting comfortably and hemodynamic stable. Denies any headache. No blurred visions. No earache or runny nose or sore throat. No cough. Appetite is okay. No difficulty swallowing. No chest pain or shortness of breath. No nausea or vomiting. No abdominal pain. Normal bowel and bladder movements. Past medical history. As mentioned above. Past surgical history. Left above-knee amputation. Left SFA atherectomy. C- section. EGD. ERCP. Left foot surgery. Left thigh sarcoma x2 surgery. Laparoscopic cholecystectomy. Ligation of oviducts. Lumbar spine fusion surgery. Left hip bone mass removal. Radiation treatment. Left hip surgery revision. Left total hip replacement. Tonsillectomy. Social history. Former smoker quit smoking in 2013. Alcohol rarely. No drug use. Family history. Father had heart disorder. DVT. Hypertension. Mother has NV. Sister of PE. Admission Exam Per Admitting Provider General- Not in distress. Head- atraumatic Eyes- PERRL. ENT- oropharynx clear Neck- supple, no JVD. Lungs- clear to auscultation , no wheezing or crackles. Heart- regular rate and rhythm; no murmur, no gallop. Abdomen- normal bowel sounds, soft, nontender, no distension Extremities- s/p left AKA. Amputation site erythematous with some drainage. Neuro- alert, oriented x 3; PERRL,; no facial palsy; no dysarthria; obeys commands Principal Diagnosis Infection of amputation site of left lower extremity Discharge Exam Constitutional WD/WN, vitals as above no acute distress Respiratory normal respiratory effort, lungs clear to auscultation Cardiovascular Rate/Rhythm: regular rate and regular rhythm Vessels: normal peripheral pulses Extremities: no edema Gastrointestinal (Abdomen) Percussion/Palpation: abdomen soft; abdomen nontender Colostomy in place Musculoskeletal S/p previous left AKA, dressing CDI Skin no rashes, warm and dry Neurologic no focal motor deficits Psychiatric A+Ox3, euthymic affect Discharge Data Allergies Allergy/AdvReac Type Severity Reaction Status Date / Time vancomycin AdvReac Severe WORSENING Verified 07/21/23 01:03 RENAL FUNCTION cetirizine AdvReac Intermediate BOWEL Verified 07/21/23 01:03 CRAMPS gabapentin [From Neurontin] AdvReac Unknown DID NOT Verified 07/21/23 01:41 WORK FOR PAIN Consultations 07/21/23 08:00 Consult Orthopedic Surgery Routine Procedures Performed Operation Date: 07/21/23 08:10 Actual Procedures p Incision and Drainage Left Knee Amputation(Left) - Bolivar Renner MD Ordered Studies Laboratory Results WBC 7.02 K/ul (4.8-10.8) 07/26/23 07:33 RBC 3.97 M/uL (4.20-5.40) L 07/26/23 07:33 Hgb 10.7 g/dl (12.0-16.0) L 07/26/23 07:33 Hct 33.9 % (37.0-47.0) L 07/26/23 07:33 MCV 85.4 fL (80.0-100.0) 07/26/23 07:33 MCH 27.0 pg (25.0-34.0) 07/26/23 07:33 MCHC 31.6 g/dL (32.0-36.0) L 07/26/23 07:33 RDW Std Deviation 42.0 fL (36.4-46.3) 07/26/23 07:33 RDW Coeff of Leslie 13.5 % (11.5-14.5) 07/26/23 07:33 Plt Count 301 K/uL (130-400) 07/26/23 07:33 MPV 10.3 fL (9.4-12.4) 07/26/23 07:33 Immature Gran % (Auto) 0.3 % 07/25/23 07:53 Neut % (Auto) 54.8 % 07/25/23 07:53 Lymph % (Auto) 28.0 % 07/25/23 07:53 [place]itt % (Auto) 7.7 % 07/25/23 07:53 Eos % (Auto) 8.8 % 07/25/23 07:53 Baso % (Auto) 0.4 % 07/25/23 07:53 Neut # (Auto) 3.86 K/uL (1.40-6.50) 07/25/23 07:53 Lymph # (Auto) 1.97 K/uL (1.20-3.40) 07/25/23 07:53 [place]itt # (Auto) 0.54 K/uL (0.11-0.59) 07/25/23 07:53 Eos # (Auto) 0.62 K/uL (0.00-0.50) H 07/25/23 07:53 Baso # (Auto) 0.03 K/uL (0.00-0.20) 07/25/23 07:53 Immature Gran # (Auto) 0.02 K/uL (0.01-0.20) 07/25/23 07:53 Sodium 138 mmol/L (136-145) 07/25/23 07:53 Potassium 4.0 mmol/L (3.5-5.1) 07/25/23 07:53 Chloride 105 mmol/L (98-107) 07/25/23 07:53 Carbon Dioxide 26 mmol/L (21-32) 07/25/23 07:53 Anion Gap 7 (3-11) 07/25/23 07:53 BUN 20 mg/dl (6-23) 07/25/23 07:53 Creatinine 0.50 mg/dl (0.6-1.2) L 07/25/23 07:53 Est Cr Clr Drug Dosing 96.7 ml/min 07/25/23 07:53 Est GFR ( Amer) 112.1 ml/min 07/25/23 07:53 Est GFR (Non-Af Amer) 96.7 ml/min 07/25/23 07:53 BUN/Creatinine Ratio 40.0 (10-20) H 07/25/23 07:53 Glucose 91 mg/dl (70-99(Fasting)) 07/25/23 07:53 Lactate 1.6 mmol/L (0.4-2.0) 07/20/23 18:27 Calcium 8.9 mg/dl (8.6-10.3) 07/25/23 07:53 Ionized Calcium 1.17 mmol/L (1.12-1.32) 07/25/23 07:53 Phosphorus 3.3 mg/dl (2.5-4.9) 07/25/23 07:53 Magnesium 1.9 mg/dl (1.7-2.4) 07/25/23 07:53 Total Bilirubin 0.3 mg/dl (0.2-1.0) 07/25/23 07:53 AST 13 U/L (13-39) 07/25/23 07:53 ALT 9 U/L (7-52) 07/25/23 07:53 Alkaline Phosphatase 210 U/L (34-104) H 07/25/23 07:53 C-Reactive Protein 6.92 mg/dl (0-0.5) H 07/20/23 18:27 Total Protein 7.1 gm/dl (6.0-8.3) 07/25/23 07:53 Albumin 3.4 gm/dl (3.4-5.0) 07/25/23 07:53 Globulin 3.7 gm/dl (2.5-4.0) 07/25/23 07:53 Albumin/Globulin Ratio 0.9 (0.9-2) 07/25/23 07:53 Impressions Femur X-Ray 07/21/23 10:35 XR femur LT 2V routine CLINICAL HISTORY: history of AKA left knee MRSA TECHNIQUE: 2 radiographic views of the left femur were obtained. Comparison: Comparison is made to left femur radiographs 03/03/2021 FINDINGS: Left femoral nail is seen. No evidence of acute fracture or loosening. No evidence of erosions to suggest osteomyelitis. The visualized portion of the hip and knee joints are unremarkable. Vascular calcifications are noted. IMPRESSION: No erosions to suggest osteomyelitis. ACT 112: Negative or not required by law. Electronically signed by: Alvin Bach M.D. 07/21/2023 11:14 AM Hospital Course (1) Infection of amputation site of lower extremity: 71-year-old female with past medical history significant for dyslipidemia, superior mesenteric artery stenosis, hypertension, patent foramen ovale, history of peripheral vascular disease, rectocele, cystocele, polyneuropathy, iron deficiency anemia due to chronic blood loss, history of left above-knee amputation, colostomy status presents with infection of left above-knee amputation site. Infection of left above-knee amputation site S/p left above-knee amputation in 2017 Outpatient cultures growing MRSA X-ray negative for osteomyelitis Ortho consulted 07/21 s/p I&D left AKA stump site Received IV daptomycin Intraoperative and blood cultures with no growth Discussed with orthopedics, no concern for osteomyelitis, infection only involved the superficial soft tissue. Transition to p.o. doxycycline on 07/25. Will discharge on an additional 10-day course. Wound care nurse following. Home health arranged for dressing changes. History of peripheral artery disease On aspirin and statin S/p colostomy Patient had history of severe abdominal pain and abdominal protrusion life flighted to [facility] and had bowel resection Was told she does not have Crohn's Colostomy drainage stable Hypertension Amlodipine and losartan on hold due to borderline hypotension BP improved by discharge, amlodipine and losartan both resumed Total Time Total Time Spent Total Time Spent (In Minutes): 40 Discharge Plan Discharge Items Patient Disposition: Home - Home Health Services Reason For Visit: LEFT LEG INFECTION Discharge Diagnosis: Left leg infection Activity: Resume your previous activity Non-emergency contact: Primary Care Provider and Surgeon Call non-emergency contact if: you have any medication questions, your symptoms worsen and your pain is not controlled Follow-up/Referrals: Mariama Henderson PA-C [Physician Plant Director] - 07/31/23 1:00 pm Sara Santos MD [Primary Care Provider] - 08/01/23 3:40 pm (Date & Time 08/01/2023 3:40 PM Provider Sara Schwarz MD Department Family Medicine [facility] ) Diet: Regular Addtl Attending Provider Instructions: You came to the hospital for an infection on your left leg. Dr. Renner did surgery to clean the infection. Please see his discharge instructions below. You were treated with IV antibiotics while in the hospital. You will be discharged on oral antibiotics, take doxycycline 100 mg twice daily for the next 10 days. A probiotic will also be prescribed while antibiotics. Home health is being arranged to help you with wound care. Dressing change instructions: To open areas on left stump: Irrigate with saline using 35 cc syringe and 18- gauge blunt needle. Gently filled with strips of Aquacel Ag, cover with Aquacel Ag, ABD, and secure with Kerlix. Change every other day and as needed for drainage. It was a pleasure taking care of you. If you need to reach a member of the [facility] hospitalist team at [facility], please call [phone]. Addtl Repossession Agent Provider Instructions: Orthopedic instructions: - Non weight bearing left leg - Allowed out of bed to chair/wheelchair as tolerated - Ice to left leg as needed for pain/swelling - Elevate left leg as needed for pain/swelling - Keep wounds and incisions covered at all times. - Wound care instructions as per wound care nurse/clinic. Follow up with them as recommended. - Call Dr. Renner's office with any increased pain, swelling, fevers, chills, drainage or other concerns. Follow up with Dr. Renner as scheduled. Call [phone] with any concerns or need to reschedule appointments. Pending Studies at Discharge: No Stand-Alone Forms: My [facility], Smoking Cessation Medications and DC Order Prescriptions: New doxycycline hyclate 100 mg Capsule 100 mg PO BID Qty: 20 0RF Probiotic 3 billion cell capsule 3,000 mmu cells PO DAILY Qty: 10 0RF Rx Instructions: administer with a meal Continued atorvastatin 20 mg tablet 20 mg PO HS multivitamin Tablet 1 tab PO QAM aspirin 81 mg Tablet,Chewable 81 mg PO BID tizanidine [Zanaflex] 4 mg Tablet 2 mg PO HS PRN (Reason: Muscle Spasm) buspirone 10 mg Tablet 10 mg PO BID hydrocodone-acetaminophen 10-325 mg tablet 1 tab PO BID PRN (Reason: .severe pain) pregabalin 150 mg capsule 150 mg PO TID oxycodone [OxyContin] 10 mg tablet,oral only,ext.rel.12 hr 10 mg PO QAM alendronate 70 mg tablet 70 mg PO WK amlodipine 10 mg tablet 10 mg PO QAM losartan 25 mg tablet 25 mg PO QAM cholecalciferol (vitamin D3) [Vitamin D3] 25 mcg (1,000 unit) Tablet 1,000 unit PO DAILY polysaccharide iron complex 150 mg iron Capsule 150 mg PO DIRECTED Rx Instructions: mowefr acetaminophen [Tylenol 8 Hour] 650 mg Tablet Extended Release 650 mg PO Q8H PRN (Reason: Pain) amitriptyline 25 mg tablet 75 mg PO HS docusate sodium [Colace] 100 mg Capsule 100 mg PO BID omega 6-bhc-mix-fish oil [Fish Oil] 1,000 mg (120 mg-180 mg) Capsule See Rx Instructions .ROUTE .COMPLEX Rx Instructions: Take 2 capsule in the morning, 1 capsule at supper and 1 capsule at bedtime Discontinued sulfamethoxazole-trimethoprim [Bactrim DS] 800-160 mg Tablet 1 tab PO [facility] Rx Instructions: this was [facility] , ordered 07/18/23, end 07/28/23. Rocío does not remember this Discharge Orders: Discharge Order (Routine); Ordered 07/26/23 Ordered By: Ro Vallejo Admission Data Admit Date/Time: 07/21/23 02:39 Attending Provider: Garret Beltran Admit Provider: Elpidio White Primary Care Provider: Sara Santos Other Providers: Elpidio White; Bolivar Renner; Berna Gloria; [facility]; [facility]; [facility] Other Interventions: Discharge Summary Assessment (RN) Last Done: 07/26/23 12:38 Supervising Physician Co-Signing Physician Notes delayed entry date of service noted above Attending Addendum: care coordinated with TUSHAR Vallejo please refer to her notes for full details, I agree with her notes patient seen and examined, records reviewed by myself as well diagnoses and plan of care as per TUSHAR Vallejo's notes Garret Beltran MD Home Health Attestation I certify that this patient is under my care and that I, or a physicians research program assistant working with me, had a face to-face encounter that meets the [id number] encounter requirements with this patient. The encounter with the patient was in whole, or in part, for the following medical condition, which is the primary reason for home health care (list medical condition): Left AKA stump wound requiring dressing changes I certify that, based on my findings, the following services are medically necessary home health services: Dressing changes My clinical findings support the need for the above services because: Patient is s/p I&D of left AKA stump wound requiring complex dressing changes Further, I certify that my clinical findings support that this patient is homebound (i.e. absences from home require considerable and taxing effort and are for medical reasons or [employer] services or infrequently or of short duration when for other reasons) because: Ambulatory dysfunction due to left AKA Certification for Home Health Services: Based on the above findings, I certify that this patient is confined to the home and needs intermittent group home care, physical therapy and/or speech therapy or continues to need occupational therapy. The patient is under my care, and I have initiated the establishment of the plan of care. This patient will be followed by a physician who will periodically review the plan of care.
--- NOTE | 2023-08-03 08:28 | Coding Query ---
CODING QUERY To promote full compliance with coding requirements relating to patient care, provider participation is requested in all cases of computer operations supervisor uncertainty. Please assist us with the question(s) below: Coding Question(s): There is documentation of Infection of amputation stump of lower extremity of the left AKA. The Orthopedic Consultation on 07/21 has an Addendum that documents, "Patient known to me from previous surgery on her left leg. She reports that sometime in the recent past she bumped her stump against the dryer. About 3 weeks ago she bumped her stump against her wheelchair and noticed some discharge". Please specify below, in your clinical opinion, regarding the Infection of the amputation stump of the left lower extremity: ( ) this was likely a postoperative infection complication (XX ) this was likely caused by the patient bumping into the wheelchair and the dryer ( ) this was likely both caused by the patient bumping into the wheelchair and a complication of postoperative infection ( ) other: Please Specify Physician's Response(s): Thank you Angelina Jason Principal Diagnosis: "that condition established after study, to be chiefly responsible for occasioning the admission of the patient to the hospital for care." Co-Existing Principal Diagnosis: "when two or more diagnoses equally meet the criteria for principal diagnosis as determined by the circumstances of admission, diagnostic work up, and/or therapy provided, and the Alphabetic Index, Tabular List, or another coding guideline does not provide sequencing direction, any one of the diagnoses may be sequenced first." "When the physician has documented what appears to be a current diagnosis in the body of the record, but has not included the diagnosis in the final diagnostic statement, the physician should be asked whether the diagnosis should be added." (Source Coding [facility] 2 QTR90. p3-4) CHERI
== END 2023-07-26 13:24 | disposition home health service (06) | DRG 464 ==
LOC: ED 17:06 → 3W 07-21 02:39 → SUATTDRO 07-21 02:39 → 3W 07-21 05:06

== ENCOUNTER 2023-09-05 15:28 | Inpatient (IN) ==
--- NOTE | 2023-09-05 15:40 | ED Triage Note ---
Date of Service September 05, 2023 Provider in Triage Author: Joanna Mckeon History of Present Illness This patient was briefly evaluated while in triage. An abbreviated physical exam was performed. This patient is a 73-year-old Female who presents to the ED for evaluation of abnormal outpatient ultrasound. Pt. states "the hospital called me and told me to come to the Emergency Department for further evaluation." Pt. states she did not clarify why she needed to come to the ED. States Dr. Barba who had ordered the ultrasound was not the one to call. Physical Exam VITALS: Vitals are noted on the nurse's note and reviewed by myself. GENERAL: This is a 73 year old female, in no acute distress, nondiaphoretic, well-developed well-nourished. SKIN: No obvious rashes, edema, erythema HEAD: Normocephalic atraumatic. EYES: Conjunctivae without injection, sclerae without icterus. NECK: No JVD. LUNGS: No retractions or accessory muscle use. MUSCULOSKELETAL: LLE amputation. NEURO: Patient was alert and oriented to person place and time. No focal neurological deficits. Initial orders for labs and / or imaging were placed and patient was placed in the waiting area until a bed is available. Please see further documentation for the full ED course.
[2023-09-05 16:57] LABS: Basophils # (auto) 0.05 K/uL (0.00-0.20); Basophils % (auto) 0.7 %; Eosinophils # (auto) 0.62 K/uL (0.00-0.50); Eosinophils % (auto) 8.2 %; Hematocrit (blood only) 39.9 % (37.0-47.0); Hemoglobin 12.2 g/dl (12.0-16.0); Immature Granulocytes # (auto) 0.02 K/uL (0.01-0.20); Immature Granulocytes % (auto) 0.3 %; Lymphocytes # (auto) 2.22 K/uL (1.20-3.40); Lymphocytes % (auto) 29.4 %; Mean Corpuscular Hemoglobin 25.8 pg (25.0-34.0); Mean Corpuscular Hgb Conc 30.6 g/dL (32.0-36.0); Mean Corpuscular Volume 84.4 fL (80.0-100.0); Mean Platelet Volume 10.4 fL (9.4-12.4); Monocytes # (auto) 0.46 K/uL (0.11-0.59); Monocytes % (auto) 6.1 %; Neutrophils # (auto) 4.17 K/uL (1.40-6.50); Neutrophils % (auto) 55.3 %; Platelet Count 298 K/uL (130-400); RDW Coefficient of Variation 15.8 % (11.5-14.5); RDW Standard Deviation 47.6 fL (36.4-46.3); Red Blood Count 4.73 M/uL (4.20-5.40); White Blood Count 7.54 K/ul (4.8-10.8)
[2023-09-05 17:06] LABS: BUN Creatinine Ratio 23.4 (10-20); Bilirubin,Total 0.3 mg/dl (0.2-1.0); Creatinine Clr Calc Pharmacy 75.8 ml/min; Est GFR (African American) 103.3 ml/min; Est GFR (Non-African American) 89.2 ml/min
[2023-09-05 17:17] LABS: Partial Thromboplastin Time 28 Seconds (21-31); Prothrombin Time 10.6 Seconds (9.0-12.0)
--- NOTE | 2023-09-05 17:25 | Emergency Department Note ---
Impression & Plan DVT (deep venous thrombosis), PAD (peripheral artery disease), Leg wound, left, Pulmonary nodule ED Provider Note NAME: ROXANNE LOYD AGE: 73 SEX: F : 1950 ARRIVES VIA: Walk-In INFORMANT: Patient ED PROVIDER(S): Teryr De La O DO CHIEF COMPLAINT: left leg pain HPI: Patient is a 73-year-old female who presents to the ER with a past medical history of left leg amputation for pain in the stump and erythema being treated with IV antibiotics. She notes the pain has gotten worse. She has been following with wound care clinic. She was referred in following an ultrasound which showed stenosis as well as DVT age-indeterminate. Patient denies any headache or change in vision. No chest pain but unaware of any shortness of breath. No belly pain, nausea, vomiting, or diarrhea. No dysuria, urgency, or frequency. No new redness or drainage or discharge from the stump. ADDITIONAL HISTORY OBTAINED: Per HPI Chronic Medical/Social Conditions Affecting Care: Per HPI PAST MEDICAL HISTORY:See Below PAST SURGICAL HISTORY:See Below FAMILY HISTORY:See Below SOCIAL HISTORY:See Below HOME MEDICATIONS:See Below ALLERGIES:See Below VITALS:See Below PHYSICAL EXAMINATION: GENERAL: Sitting up in bed, alert, well appearing, well nourished, no distress, non-toxic EYE EXAM: normal conjunctiva. OROPHARYNX: no exudate, no erythema, lips, buccal mucosa, and tongue normal and mucous membranes are moist NECK: supple, no nuchal rigidity, no adenopathy, non-tender LUNGS: Clear to auscultation. Normal chest wall mechanics HEART: no murmurs, S1 normal and S2 normal ABDOMEN: abdomen soft, non-tender, normo-active bowel sounds, no masses, no rebound or guarding. UPPER EXTREMITIES: upper extremities are grossly normal. LOWER EXTREMITIES: Left lower extremity stump is slightly erythematous with several open wounds. No obvious drainage. NEURO EXAM: Normal sensorium, cranial nerves II-XII grossly intact, normal speech, no gross weakness of arms, no weakness of legs. MEDICAL DECISION MAKING: Patient is a 73-year-old female who presents to the ER the above-stated complaint. IV was established blood work was obtained. She was referred in for left leg pain showing a DVT as well as arterial stenosis. IV was established blood work was obtained. Laboratory shows no significant leukocytosis or anemia. INR was unremarkable. Troponin negative. CT angio of the chest was negative. Ultrasound was reviewed which showed arterial stenosis and occlusions in commendation with a DVT. This was discussed with Dr. Pace. He favors that this is likely secondary to DVT. Did discuss with the hospitalist for observation overnight for evaluation morning by vascular. Patient was agreeable. Patient was slightly hypoxic as well with a pulse ox of 88%. Patient was given a small dose of morphine 2 mg. External Records Reviewed: Ultrasound performed today as an outpatient shows the DVT and arterial stenosis Consults/Care Managements Discussions: Per MDM Triage Nursing notes reviewed. Limited review of prior medical records performed Vital Signs: reviewed and remarkable for hypoxic Differential diagnosis: DVT, musculoskeletal, infection, joint effusion, trauma, lymphedema, idiopathic, CHF, as well as other pathologies. ER treatment provided: See below Diagnostics interpreted by me include EKG and cardiac monitoring as listed below: -Cardiac Monitoring: An order was placed for continuous cardiac monitoring. The monitor shows a rate of 80 with sinus rhythm. -ECG: Sinus rhythm rate 83 Normal axis No PVCs QTc 423 -Laboratory studies:Interpreted by me as stated above in MDM and shown below. Imaging studies: Xrays: As interpreted by me:none CTs show: CT angio of the chest per my preliminary read showed no proximal PE CT angio of the chest was negative per radiology Procedures:none Critical Care: None Past Med/Surg History Medical History Superior mesenteric artery stenosis Lab test negative for COVID-19 virus Weakness Near syncope Pre-syncope Osteoarthritis Presence of pessary Hearing deficit BL FABIAN Hyperlipidemia Bile duct stone Hx of sarcoma of bone LLE; h/o surgery, radiation treatment 1989 History of anxiety Hypertension PAD (peripheral artery disease) PFO (patent foramen ovale) Surgical History History of cholecystectomy lap [place]: 07/20/20: Grade view 3, MAC#3.0, ETT 7.0 at [facility] History of ERCP History of elbow surgery Left History of carpal tunnel release Right 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) History of lumbar surgery x2 History of cancer surgery LLE History of colonoscopy History of ankle surgery Left History of section X 1 History of tonsillectomy and adenoidectomy History of hip surgery x 2 - Left Family History Mother Anxiety Cardiac disorder Father Cardiac disorder Myocardial infarction Hypertension Grandmother (Maternal) Diabetes Other No family history of adverse response to anesthesia Social History Smoking Status: Former smoker Second Hand Exposure: No; Do You Dip or Chew Tobacco: No; Hx Alcohol Use: No Hx Substance Use: No Preferred Language: Icelandic Communication Ability: Effective Uniform Designer Required: No Beliefs That Will Affect Care: None marital status: Current Living Situation: Spouse and Family Current Living Situation Comment: Lives at home with , daughter, and son Feels Safe at Home: Yes Assistive Devices: Hospital Bed and Wheelchair Allergies Allergies Allergy/AdvReac Type Severity Reaction Status Date / Time vancomycin AdvReac Severe WORSENING Verified 09/05/23 18:35 RENAL FUNCTION cetirizine AdvReac Intermediate BOWEL Verified 09/05/23 18:35 CRAMPS gabapentin [From Neurontin] AdvReac Unknown DID NOT Verified 09/05/23 18:35 WORK FOR PAIN Home Meds Home Medications Medication Instructions Recorded Confirmed atorvastatin 20 mg tablet 20 mg PO HS 05/21/19 09/05/23 aspirin 81 mg chewable tablet 81 mg PO BID 06/18/20 09/05/23 multivitamin 1 tab PO QAM 06/18/20 09/05/23 buspirone 10 mg tablet 10 mg PO BID 06/19/20 09/05/23 tizanidine 4 mg tablet (Zanaflex) 2 mg PO HS PRN Muscle Spasm 06/19/20 09/05/23 acetaminophen 650 mg 650 mg PO Q8H PRN Pain 12/31/21 09/05/23 tablet,extended release (Tylenol 8 Hour) amitriptyline 25 mg tablet 75 mg PO HS 12/31/21 09/05/23 docusate sodium 100 mg capsule 100 mg PO BID 12/31/21 09/05/23 (Colace) omega 7-kbj-mgc-fish oil 1,000 mg See Rx Instructions .Route .COMPLEX 12/31/21 09/05/23 (120 mg-180 mg) capsule (Fish Oil) polysaccharide iron complex 150 mg 150 mg PO 3XWK 12/31/21 09/05/23 iron capsule alendronate 70 mg tablet 70 mg PO WK 07/21/23 09/05/23 amlodipine 10 mg tablet 10 mg PO QAM 07/21/23 09/05/23 cholecalciferol (vitamin D3) 25 1,000 unit PO DAILY 07/21/23 09/05/23 mcg (1,000 unit) tablet (Vitamin D3) hydrocodone 10 mg-acetaminophen 1 tab PO BID PRN .severe pain 07/21/23 09/05/23 325 mg tablet losartan 25 mg tablet 25 mg PO QAM 07/21/23 09/05/23 oxycodone 10 mg tablet,crush 10 mg PO QAM 07/21/23 09/05/23 resistant,extended release 12 hr (OxyContin) pregabalin 150 mg capsule 150 mg PO TID 07/21/23 09/05/23 Previous Rx's Medication Instructions Recorded lactobacillus combination no.4 3 3,000 mmu cells PO DAILY #10 caps 07/26/23 billion cell capsule (Probiotic) Results & Data (ED) Vital Signs Vital Signs - 24 hr 09/05/23 15:33 09/05/23 16:57 09/05/23 18:33 Temperature 36.7 C Temperature Source Temporal Artery Scan Pulse Rate 89 92 H Pulse Rate [Apical] 86 Pulse Rhythm [Apical] Pulse Strength [Apical] Respiratory Rate 19 18 Respiratory Effort / Characteristics Non-Labored Non-Labored Respiratory Depth Normal Normal Respiratory Pattern Blood Pressure 160/66 H Blood Pressure [Right Arm] 136/59 L Blood Pressure Mean 97 Blood Pressure Mean [Right Arm] 84 Pulse Oximetry 97 95 Oxygen Delivery Method Room Air Room Air Oxygen Flow Rate Sepsis Recent Fever Within 48 Hours No Sepsis New/Unexplained Change in Mental Status No Sepsis Action Taken by Nursing No Action Required Oxygen Flow Rate - Titration Pulse Oximetry Post Tiitration 09/05/23 19:03 09/05/23 19:44 09/05/23 19:50 Temperature Temperature Source Pulse Rate Pulse Rate [Apical] 83 89 Pulse Rhythm [Apical] Regular Regular Pulse Strength [Apical] Normal Normal Respiratory Rate 18 18 Respiratory Effort / Characteristics Non-Labored Spontaneous Non-Labored Respiratory Depth Normal Normal Respiratory Pattern Regular Regular Blood Pressure Blood Pressure [Right Arm] 143/75 H 143/75 H Blood Pressure Mean Blood Pressure Mean [Right Arm] 97 97 Pulse Oximetry 91 92 88 L Oxygen Delivery Method Room Air Nasal Cannula Room Air Oxygen Flow Rate 2 Sepsis Recent Fever Within 48 Hours Sepsis New/Unexplained Change in Mental Status Sepsis Action Taken by Nursing Oxygen Flow Rate - Titration 2 Pulse Oximetry Post Tiitration 96 Laboratory Data 09/05/23 16:19 09/05/23 16:19 Lab Results 09/05/23 Range/Units 16:19 WBC 7.54 (4.8-10.8) K/ul RBC 4.73 (4.20-5.40) M/uL Hgb 12.2 (12.0-16.0) g/dl Hct 39.9 (37.0-47.0) % MCV 84.4 (80.0-100.0) fL MCH 25.8 (25.0-34.0) pg MCHC 30.6 L (32.0-36.0) g/dL RDW Std Deviation 47.6 H (36.4-46.3) fL RDW Coeff of Leslie 15.8 H (11.5-14.5) % Plt Count 298 (130-400) K/uL MPV 10.4 (9.4-12.4) fL Immature Gran % (Auto) 0.3 % Neut % (Auto) 55.3 % Lymph % (Auto) 29.4 % [place] % (Auto) 6.1 % Eos % (Auto) 8.2 % Baso % (Auto) 0.7 % Neut # (Auto) 4.17 (1.40-6.50) K/uL Lymph # (Auto) 2.22 (1.20-3.40) K/uL [place] # (Auto) 0.46 (0.11-0.59) K/uL Eos # (Auto) 0.62 H (0.00-0.50) K/uL Baso # (Auto) 0.05 (0.00-0.20) K/uL Immature Gran # (Auto) 0.02 (0.01-0.20) K/uL PT 10.6 (9.0-12.0) Seconds INR 1.0 (0.9-1.1) APTT 28 (21-31) Seconds PTT Ratio 1.0 Sodium 138 (136-145) mmol/L Potassium 4.0 (3.5-5.1) mmol/L Chloride 102 (98-107) mmol/L Carbon Dioxide 28 (21-32) mmol/L Anion Gap 8 (3-11) BUN 15 (6-23) mg/dl Creatinine 0.64 (0.6-1.2) mg/dl Est Cr Clr Drug Dosing 75.8 ml/min Est GFR ( Amer) 103.3 ml/min Est GFR (Non-Af Amer) 89.2 ml/min BUN/Creatinine Ratio 23.4 H (10-20) Glucose 89 (70-99(Fasting)) mg/dl Calcium 10.0 (8.6-10.3) mg/dl Total Bilirubin 0.3 (0.2-1.0) mg/dl AST 22 (13-39) U/L ALT 12 (7-52) U/L Alkaline Phosphatase 352 H (34-104) U/L Troponin I High Sens 8.0 (0-14) pg/ml Total Protein 8.0 (6.0-8.3) gm/dl Albumin 4.0 (3.4-5.0) gm/dl Globulin 4.0 (2.5-4.0) gm/dl Albumin/Globulin Ratio 1.0 (0.9-2) Administered Medications Heparin Sodium/Dextrose (Heparin Sodium/Dextrose) 25,000 units in 500 mls @ 22 mls/hr IV .[id number] [facility]; Protocol Stop: 10/05/23 19:44 Last Admin: 09/05/23 20:02 Dose: 1,100 units/hr, 22 mls/hr Documented By: MARLEY Co-signed By: CRISTÓBAL Discontinued Medications Heparin Sodium (Porcine) (Heparin Sod (Porcine) 1000 Unit/Ml) 1 units IV NOW ONE Stop: 09/05/23 19:44 Last Admin: 09/05/23 20:04 Dose: Not Given Documented By: MARLEY Heparin Sodium (Porcine) (Heparin Sod (Porcine) 1000 Unit/Ml) 5,000 units IV NOW STA Stop: 09/05/23 19:59 Last Admin: 09/05/23 20:01 Dose: 5,000 units Documented By: MARLEY Co-signed By: CRISTÓBAL Heparin Sodium/Dextrose (Heparin Iv Adult Wt-Based Standard W/ Initial Bolus Protocol) 1 each IV NOW STA; Protocol Stop: 09/05/23 19:29 Last Admin: 09/05/23 20:04 Dose: Not Given Documented By: MARLEY Ioversol (Optiray 320 125ml) 114 ml IV ONCE ONE Stop: 09/05/23 18:09 Last Admin: 09/05/23 18:08 Dose: 114 ml Documented By: SAEID Morphine Sulfate (Morphine Sulfate 4 Mg/Ml 1 Ml Carp\Vial) 4 mg IV NOW STA Stop: 09/05/23 19:29 Last Admin: 09/05/23 19:38 Dose: 4 mg Documented By: MARLEY Imaging Data Radiologist's Impression: Chest CTA 09/05/23 17:23 CT ANGIOGRAPHY OF THE CHEST, PULMONARY EMBOLUS PROTOCOL CLINICAL HISTORY: DVT. COMPARISON STUDY: Chest radiograph December 31, 2021. TECHNIQUE: Following IV administration of 114 mL of Optiray, helical axial images of the chest were obtained utilizing the pulmonary embolus protocol. Maximal intensity projections and sagittal and coronal reformats were viewed on an independent 3D workstation. IV contrast was administered without complication. Automated exposure control was utilized for the study. A dose lowering technique was utilized adhering to the principles of ALARA. CT DOSE: 770.54 mGy.cm FINDINGS: No pulmonary emboli are identified. There is no thoracic aortic dissection. Cardiomegaly is noted. There is moderate coronary artery calcification. There is no pericardial effusion. No thoracic lymphadenopathy is present. Lungs are suboptimally assessed due to respiratory motion. Ground glass opacities within lungs are noted. Central airways are patent. Mild arterial wall thickening within the lower lobes is present. There is an 8 mm right upper lobe nodule on image 141 of 197. No acute fractures within the bony thorax are identified. Visualized portions of the upper abdomen are unremarkable. IMPRESSION: 1. No pulmonary emboli identified. 2. Cardiomegaly. Moderate coronary artery calcification. 3. 8 mm right upper lobe nodule. This is indeterminate. A follow-up chest CT in 6 months is recommended. 4. Ground glass opacities within lungs. Atelectasis is favored however mild pulmonary edema could appear similar. ACT 112: Negative or not required by law. Electronically signed by: Moe Mooney M.D. 09/05/2023 6:22 PM Discharge Plan Visit Data Chief Complaint: Leg Injury/Pain Stated Complaint: INFECTION IN LEFT LEG ED Provider: Terry De La O Discharge Problem: DVT (deep venous thrombosis), PAD (peripheral artery disease), Leg wound, left, Pulmonary nodule Forms Stand Alone Forms: My [facility] [employer] Prescriptions Prescriptions: No Action atorvastatin 20 mg tablet 20 mg PO HS multivitamin Tablet 1 tab PO QAM aspirin 81 mg Tablet,Chewable 81 mg PO BID tizanidine [Zanaflex] 4 mg Tablet 2 mg PO HS PRN (Reason: Muscle Spasm) buspirone 10 mg Tablet 10 mg PO BID hydrocodone-acetaminophen 10-325 mg tablet 1 tab PO BID PRN (Reason: .severe pain) pregabalin 150 mg capsule 150 mg PO TID oxycodone [OxyContin] 10 mg tablet,oral only,ext.rel.12 hr 10 mg PO QAM alendronate 70 mg tablet 70 mg PO WK Rx Instructions: SATURDAYS amlodipine 10 mg tablet 10 mg PO QAM losartan 25 mg tablet 25 mg PO QAM cholecalciferol (vitamin D3) [Vitamin D3] 25 mcg (1,000 unit) Tablet 1,000 unit PO DAILY Probiotic 3 billion cell capsule 3,000 mmu cells PO DAILY Qty: 10 0RF Rx Instructions: administer with a meal polysaccharide iron complex 150 mg iron Capsule 150 mg PO 3XWK Rx Instructions: MON, WED, & FRI. acetaminophen [Tylenol 8 Hour] 650 mg Tablet Extended Release 650 mg PO Q8H PRN (Reason: Pain) amitriptyline 25 mg tablet 75 mg PO HS docusate sodium [Colace] 100 mg Capsule 100 mg PO BID omega 7-[id number]-fish oil [Fish Oil] 1,000 mg (120 mg-180 mg) Capsule See Rx Instructions .ROUTE .COMPLEX Rx Instructions: Take 2 capsule in the morning, 1 capsule at supper and 1 capsule at bedtime Referrals Referrals: Sara Santos MD [Primary Care Provider] - Discharge Problem: DVT (deep venous thrombosis) Qualifiers: DVT location: lower extremity Affected thrombotic vein of extremity: u nspecified vein of extremity Chronicity: unspecified Laterality: unspecified laterality Qualified Code(s): I82.409 - Acute embolism and thrombosis of unspecified deep veins of unspecified lower extremity Leg wound, left Qualifiers: Encounter type: initial encounter Qualified Code(s): S81.802A - Unspecified open wound, left lower leg, initial encounter
[2023-09-05] MEDS ORDERED: OPTIRAY 320 125ml IV ONE (18:08)
--- NOTE | 2023-09-05 18:24 | CT Scan Report ---
CT ANGIOGRAPHY OF THE CHEST, PULMONARY EMBOLUS PROTOCOL CLINICAL HISTORY: DVT. COMPARISON STUDY: Chest radiograph December 31, 2021. TECHNIQUE: Following IV administration of 114 mL of Optiray, helical axial images of the chest were o btained utilizing the pulmonary embolus protocol. Maximal intensity projections and sagittal and cor onal reformats were viewed on an independent 3D workstation. IV contrast was administered without co mplication. Automated exposure control was utilized for the study. A dose lowering technique was ut ilized adhering to the principles of ALARA. CT DOSE: 770.54 mGy.cm FINDINGS: No pulmonary emboli are identified. There is no thoracic aortic dissection. Cardiomegaly i s noted. There is moderate coronary artery calcification. There is no pericardial effusion. No thorac ic lymphadenopathy is present. Lungs are suboptimally assessed due to respiratory motion. Ground glas s opacities within lungs are noted. Central airways are patent. Mild arterial wall thickening within the lower lobes is present. There is an 8 mm right upper lobe nodule on image 141 of 197. No acute fr actures within the bony thorax are identified. Visualized portions of the upper abdomen are unremarka ble. IMPRESSION: 1. No pulmonary emboli identified. 2. Cardiomegaly. Moderate coronary artery calcification. 3. 8 mm right upper lobe nodule. This is indeterminate. A follow-up chest CT in 6 months is recommend ed. 4. Ground glass opacities within lungs. Atelectasis is favored however mild pulmonary edema could pauline ear similar. ACT 112: Negative or not required by law. Electronically signed by: Moe Mooney M.D. 09/05/2023 6:22 PM
[2023-09-05] MEDS ORDERED: MoRPHine SULFATE 4 MG/ML 1 ML CARP\\VIAL IV STA (19:28)
[2023-09-05] MEDS ORDERED: Heparin IV Adult Wt-Based Standard w/ INITIAL Bolus Protocol IV STA (19:28)
[2023-09-05] MEDS ORDERED: HEPARIN SOD (PORCINE) 1000 UNIT/ML IV ONE (19:43)
[2023-09-05] MEDS ORDERED: HEPARIN SOD (PORCINE) 1000 UNIT/ML IV STA (19:58)
[2023-09-05] MEDS: HEPARIN SODIUM/DEXTROSE 25,000 UNITS/500 ML BAG IV SCH (20:02)
[2023-09-05] MEDS ORDERED: ACETAMINOPHEN 325 MG TAB PO PRN (23:55)
[2023-09-05] MEDS ORDERED: POLYETHYLENE (MIRALAX) 17 GM PACK PO PRN (23:55)
[2023-09-05] MEDS ORDERED: SODIUM CHLORIDE 0.9% 1,000 ML IV SCH (23:55)
[2023-09-05] MEDS ORDERED: NITROGLYCERIN SL 0.4 MG/TAB TAB SL PRN (23:55)
--- NOTE | 2023-09-06 00:56 | History & Physical Report ---
Date of Service September 05, 2023 Assessment & Plan (1) DVT (deep venous thrombosis): Plan: 73-year-old female with past med history significant for hyperlipidemia, superior mesenteric artery stenosis, hypertension, patent foramen ovale, peripheral vascular disease, rectocele, cystocele, degenerative arthritis, polyneuropathy, iron deficiency anemia, s/p colostomy, s/p left above-knee amputation and anxiety was sent in for left lower extremity arterial ultrasound for ongoing infection of left above-knee amputation site and found to have age- indeterminate left common femoral and superficial femoral veins DVT and also significant peripheral vascular disease. Left lower extremity DVT Age indeterminant Started on IV heparin Left lower extremity peripheral vascular disease significant stenosis seen possibly chronic ER notified vascular surgery Currently started on IV heparin which we will continue Also patient having ongoing infection in the left above-knee amputation site Await vascular surgery input Left above-knee amputation site infection s/p I&D on July 21 Currently following with wound care Recently started on antibiotic IV Dalvance Wound care Will consult Ortho while patient in the hospital S/p colostomy Patient had history of severe abdominal pain and abdominal protrusion life flighted to [facility] and had bowel resection Was told she does not have Crohn's Hypertension On amlodipine and losartan Will monitor Chronic pain S/p left left above-knee amputation 2016 Current home pain medications Hyperlipidemia On statin DVT prophylaxis On IV heparin Disposition med/tele Full code History of Present Illness Chief Complaint: Ongoing infection of left above-knee amputation site and found to have chronic DVT and peripheral vascular disease Primary Care Provider: Sara Santos MD 73-year-old female with past med history significant for hyperlipidemia, superior mesenteric artery stenosis, hypertension, patent foramen ovale, peripheral vascular disease, rectocele, cystocele, degenerative arthritis, polyneuropathy, iron deficiency anemia, s/p colostomy, s/p left above-knee amputation and anxiety was sent in for left lower extremity arterial ultrasound for ongoing infection of left above-knee amputation site and found to have age-indeterminate left common femoral and superficial femoral veins DVT and also significant peripheral vascular disease. Patient had I&D done of the left above knee amputation site infection on July 21 2023. Currently following with wound care. She is having left thigh pain for some time now. She is on antibiotic IV dalvance started on August 31 next dose is on September 14. Denies any fevers. Currently no headache. No runny nose. No cough. No chest pain or shortness of breath. No nausea. No abdominal pain. Normal bladder movements. Resting comfortably and hemodynamic stable. Patient is wheelchair- bound. Past medical history. As mentioned above Past surgical history. Left above-knee amputation. 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 Tonsillectomy and adenoidectomy Social history. . Quit smoking in 2013. Alcohol rare. No drug use. Family history. Father had DVT, heart disorder, hypertension. Mother had AK. Sister had PE. Allergies Allergy/AdvReac Type Severity Reaction Status Date / Time vancomycin AdvReac Severe WORSENING Verified 09/05/23 18:35 RENAL FUNCTION cetirizine AdvReac Intermediate BOWEL Verified 09/05/23 18:35 CRAMPS gabapentin [From Neurontin] AdvReac Unknown DID NOT Verified 09/05/23 18:35 WORK FOR PAIN Home Medications Medication Instructions Recorded Confirmed Type atorvastatin 20 mg tablet 20 mg PO HS 05/21/19 09/05/23 History aspirin 81 mg chewable tablet 81 mg PO BID 06/18/20 09/05/23 History multivitamin 1 tab PO QAM 06/18/20 09/05/23 History buspirone 10 mg tablet 10 mg PO BID 06/19/20 09/05/23 History tizanidine 4 mg tablet (Zanaflex) 2 mg PO HS PRN Muscle Spasm 06/19/20 09/05/23 History acetaminophen 650 mg 650 mg PO Q8H PRN Pain 12/31/21 09/05/23 History tablet,extended release (Tylenol 8 Hour) amitriptyline 25 mg tablet 75 mg PO HS 12/31/21 09/05/23 History docusate sodium 100 mg capsule 100 mg PO BID 12/31/21 09/05/23 History (Colace) omega 7-lbv-bzg-fish oil 1,000 mg See Rx Instructions .Route .COMPLEX 12/31/21 09/05/23 History (120 mg-180 mg) capsule (Fish Oil) polysaccharide iron complex 150 mg 150 mg PO 3XWK 12/31/21 09/05/23 History iron capsule alendronate 70 mg tablet 70 mg PO WK 07/21/23 09/05/23 History amlodipine 10 mg tablet 10 mg PO QAM 07/21/23 09/05/23 History cholecalciferol (vitamin D3) 25 1,000 unit PO DAILY 07/21/23 09/05/23 History mcg (1,000 unit) tablet (Vitamin D3) hydrocodone 10 mg-acetaminophen 1 tab PO BID PRN .severe pain 07/21/23 09/05/23 History 325 mg tablet losartan 25 mg tablet 25 mg PO QAM 07/21/23 09/05/23 History oxycodone 10 mg tablet,crush 10 mg PO QAM 07/21/23 09/05/23 History resistant,extended release 12 hr (OxyContin) pregabalin 150 mg capsule 150 mg PO TID 07/21/23 09/05/23 History lactobacillus combination no.4 3 3,000 mmu cells PO DAILY #10 caps 07/26/23 09/05/23 Rx billion cell capsule (Probiotic) Past Med/Surg History Medical History Superior mesenteric artery stenosis Lab test negative for COVID-19 virus Weakness Near syncope Pre-syncope Osteoarthritis Presence of pessary Hearing deficit BL FABIAN Hyperlipidemia Bile duct stone Hx of sarcoma of bone LLE; h/o surgery, radiation treatment 1989 History of anxiety Hypertension PAD (peripheral artery disease) PFO (patent foramen ovale) Surgical History History of cholecystectomy lap [place]: 07/20/20: Grade view 3, MAC#3.0, ETT 7.0 at [facility] History of ERCP History of elbow surgery Left History of carpal tunnel release Right 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) History of lumbar surgery x2 History of cancer surgery LLE History of colonoscopy History of ankle surgery Left History of section X 1 History of tonsillectomy and adenoidectomy History of hip surgery x 2 - Left Family History Mother Anxiety Cardiac disorder Father Cardiac disorder Myocardial infarction Hypertension Grandmother (Maternal) Diabetes Other No family history of adverse response to anesthesia Social History Smoking Status: Never smoker Second Hand Exposure: No; Do You Dip or Chew Tobacco: No; Hx Alcohol Use: No Hx Substance Use: No Preferred Language: Stateless Communication Ability: Effective Lead Caster Helper Required: No Beliefs That Will Affect Care: None marital status: Current Living Situation: Spouse and Family Current Living Situation Comment: family helps Feels Safe at Home: Yes Assistive Devices: Denture - Upper, Denture - Lower, Glasses, Hearing Aid - Bilateral and Wheelchair Review of Systems Review of Systems: All systems reviewed & are unremarkable except as noted in HPI & below Physical Exam Physical Exam: General- Not in distress. Head- atraumatic Eyes- PERRL. ENT- oropharynx clear Neck- supple, no JVD. Lungs- clear to auscultation no wheezing or crackles. Heart- regular rhythm; no murmur, no gallop. Abdomen- normal bowel sounds, soft, nontender, no distension. Extremities-s/p left aka. amputation site mild drainage seen. Neuro- alert, oriented x 3; PERRL no facial palsy; no dysarthria obeys commands Skin- warm & dry Results & Data Results & Data Vital Signs (Past 12 Hours) Vital Signs Temp Pulse Pulse Resp BP BP Pulse Ox 09/05/23 19:50 88 L 09/05/23 19:44 89 18 143/75 H 92 09/05/23 19:03 83 18 143/75 H 91 09/05/23 18:33 92 H 09/05/23 16:57 86 18 136/59 L 95 09/05/23 15:33 36.7 C 89 19 160/66 H 97 O2 Del Method O2 Flow Rate 09/05/23 19:50 Room Air 09/05/23 19:44 Nasal Cannula 2 09/05/23 19:03 Room Air 09/05/23 18:33 09/05/23 16:57 Room Air 09/05/23 15:33 Room Air Diagnostic Findings Laboratory Results WBC 7.54 K/ul (4.8-10.8) 09/05/23 16:19 RBC 4.73 M/uL (4.20-5.40) 09/05/23 16:19 Hgb 12.2 g/dl (12.0-16.0) 09/05/23 16:19 Hct 39.9 % (37.0-47.0) 09/05/23 16:19 MCV 84.4 fL (80.0-100.0) 09/05/23 16:19 MCH 25.8 pg (25.0-34.0) 09/05/23 16:19 MCHC 30.6 g/dL (32.0-36.0) L 09/05/23 16:19 RDW Std Deviation 47.6 fL (36.4-46.3) H 09/05/23 16:19 RDW Coeff of Leslie 15.8 % (11.5-14.5) H 09/05/23 16:19 Plt Count 298 K/uL (130-400) 09/05/23 16:19 MPV 10.4 fL (9.4-12.4) 09/05/23 16:19 Immature Gran % (Auto) 0.3 % 09/05/23 16:19 Neut % (Auto) 55.3 % 09/05/23 16:19 Lymph % (Auto) 29.4 % 09/05/23 16:19 [place] % (Auto) 6.1 % 09/05/23 16:19 Eos % (Auto) 8.2 % 09/05/23 16:19 Baso % (Auto) 0.7 % 09/05/23 16:19 Neut # (Auto) 4.17 K/uL (1.40-6.50) 09/05/23 16:19 Lymph # (Auto) 2.22 K/uL (1.20-3.40) 09/05/23 16:19 [place] # (Auto) 0.46 K/uL (0.11-0.59) 09/05/23 16:19 Eos # (Auto) 0.62 K/uL (0.00-0.50) H 09/05/23 16:19 Baso # (Auto) 0.05 K/uL (0.00-0.20) 09/05/23 16:19 Immature Gran # (Auto) 0.02 K/uL (0.01-0.20) 09/05/23 16:19 PT 10.6 Seconds (9.0-12.0) 09/05/23 16:19 INR 1.0 (0.9-1.1) 09/05/23 16:19 APTT 28 Seconds (21-31) 09/05/23 16:19 PTT Ratio 1.0 09/05/23 16:19 Sodium 138 mmol/L (136-145) 09/05/23 16:19 Potassium 4.0 mmol/L (3.5-5.1) 09/05/23 16:19 Chloride 102 mmol/L (98-107) 09/05/23 16:19 Carbon Dioxide 28 mmol/L (21-32) 09/05/23 16:19 Anion Gap 8 (3-11) 09/05/23 16:19 BUN 15 mg/dl (6-23) 09/05/23 16:19 Creatinine 0.64 mg/dl (0.6-1.2) 09/05/23 16:19 Est Cr Clr Drug Dosing 75.8 ml/min 09/05/23 16:19 Est GFR ( Amer) 103.3 ml/min 09/05/23 16:19 Est GFR (Non-Af Amer) 89.2 ml/min 09/05/23 16:19 BUN/Creatinine Ratio 23.4 (10-20) H 09/05/23 16:19 Glucose 89 mg/dl (70-99(Fasting)) 09/05/23 16:19 Calcium 10.0 mg/dl (8.6-10.3) 09/05/23 16:19 Total Bilirubin 0.3 mg/dl (0.2-1.0) 09/05/23 16:19 AST 22 U/L (13-39) 09/05/23 16:19 ALT 12 U/L (7-52) 09/05/23 16:19 Alkaline Phosphatase 352 U/L (34-104) H 09/05/23 16:19 Troponin I High Sens 8.0 pg/ml (0-14) 09/05/23 16:19 Total Protein 8.0 gm/dl (6.0-8.3) 09/05/23 16:19 Albumin 4.0 gm/dl (3.4-5.0) 09/05/23 16:19 Globulin 4.0 gm/dl (2.5-4.0) 09/05/23 16:19 Albumin/Globulin Ratio 1.0 (0.9-2) 09/05/23 16:19 Impressions Chest CTA 09/05/23 17:23 CT ANGIOGRAPHY OF THE CHEST, PULMONARY EMBOLUS PROTOCOL CLINICAL HISTORY: DVT. COMPARISON STUDY: Chest radiograph December 31, 2021. TECHNIQUE: Following IV administration of 114 mL of Optiray, helical axial images of the chest were obtained utilizing the pulmonary embolus protocol. Maximal intensity projections and sagittal and coronal reformats were viewed on an independent 3D workstation. IV contrast was administered without complication. Automated exposure control was utilized for the study. A dose lowering technique was utilized adhering to the principles of ALARA. CT DOSE: 770.54 mGy.cm FINDINGS: No pulmonary emboli are identified. There is no thoracic aortic dissection. Cardiomegaly is noted. There is moderate coronary artery calcification. There is no pericardial effusion. No thoracic lymphadenopathy is present. Lungs are suboptimally assessed due to respiratory motion. Ground glass opacities within lungs are noted. Central airways are patent. Mild arterial wall thickening within the lower lobes is present. There is an 8 mm right upper lobe nodule on image 141 of 197. No acute fractures within the bony thorax are identified. Visualized portions of the upper abdomen are unremarkable. IMPRESSION: 1. No pulmonary emboli identified. 2. Cardiomegaly. Moderate coronary artery calcification. 3. 8 mm right upper lobe nodule. This is indeterminate. A follow-up chest CT in 6 months is recommended. 4. Ground glass opacities within lungs. Atelectasis is favored however mild pulmonary edema could appear similar. ACT 112: Negative or not required by law. Electronically signed by: Moe Mooney M.D. 09/05/2023 6:22 PM ECG Additional Comments: ECG. Sinus rhythm with marked sinus arrhythmia rate of 83. Nonspecific ST abnormality . Code Status & VTE Plan VTE Prophylaxis Plan VTE Prophylaxis will be ordered: Yes
[2023-09-06] MEDS: MoRPHine SULFATE 4 MG/ML 1 ML CARP\\VIAL IV PRN ×5 (01:00→20:33)
[2023-09-06 02:22] LABS: Basophils # (auto) 0.05 K/uL (0.00-0.20); Basophils % (auto) 0.6 %; Eosinophils # (auto) 0.69 K/uL (0.00-0.50); Eosinophils % (auto) 8.8 %; Hematocrit (blood only) 31.5 % (37.0-47.0); Hemoglobin 9.9 g/dl (12.0-16.0); Immature Granulocytes # (auto) 0.03 K/uL (0.01-0.20); Immature Granulocytes % (auto) 0.4 %; Lymphocytes % (auto) 30.8 %; Mean Corpuscular Hemoglobin 26.3 pg (25.0-34.0); Mean Corpuscular Hgb Conc 31.4 g/dL (32.0-36.0); Mean Corpuscular Volume 83.8 fL (80.0-100.0); Mean Platelet Volume 10.4 fL (9.4-12.4); Monocytes # (auto) 0.58 K/uL (0.11-0.59); Monocytes % (auto) 7.4 %; Neutrophils # (auto) 4.05 K/uL (1.40-6.50); Platelet Count 263 K/uL (130-400); RDW Coefficient of Variation 15.9 % (11.5-14.5); RDW Standard Deviation 48.5 fL (36.4-46.3); Red Blood Count 3.76 M/uL (4.20-5.40)
[2023-09-06 02:27] LABS: BUN Creatinine Ratio 20.3 (10-20); Creatinine Clr Calc Pharmacy 75.8 ml/min; Est GFR (African American) 103.3 ml/min; Est GFR (Non-African American) 89.2 ml/min; Magnesium 1.6 mg/dl (1.7-2.4)
[2023-09-06 02:39] LABS: ANTI-Xa, UFH(UnfractionatedHep 0.37 IU/ml (0.3-0.7)
[2023-09-06 09:08] LABS: Hematocrit (blood only) 32.3 % (37.0-47.0)
[2023-09-06 09:14] LABS: ANTI-Xa, UFH(UnfractionatedHep 0.21 IU/ml (0.3-0.7)
[2023-09-06] MEDS: busPIRone 5 MG TAB PO SCH ×2 (10:12→21:17)
[2023-09-06] MEDS: ASPIRIN 81 MG ECTAB PO SCH ×2 (10:12→21:19)
[2023-09-06] MEDS: LOSARTAN POTASSIUM 25 MG TAB PO SCH (10:13)
[2023-09-06] MEDS: DOCUSATE SODIUM 100 MG CAP PO SCH ×2 (10:13→21:17)
[2023-09-06] MEDS: CHOLECALCIFEROL 1,000 UNITS 25 MCG TAB PO SCH (10:13)
[2023-09-06] MEDS: ADVANCED PROBIOTIC 1250 MG CAPSULE PO SCH (10:13)
[2023-09-06] MEDS: IRON POLYSACCHARIDE COMPLEX 150 MG CAPSULE PO SCH (10:13)
[2023-09-06] MEDS: oxyCODONE HCL 10 MG TABCR (OxyCONTIN) PO SCH (10:14)
[2023-09-06] MEDS: PREGABALIN 150 MG CAP PO SCH ×3 (10:14→21:19)
[2023-09-06] MEDS: MULTIVITAMIN TAB PO SCH (10:14)
[2023-09-06] MEDS: tiZANidine HCL 4 MG TABLET PO PRN (10:14)
[2023-09-06] MEDS: amLODIPine BESYLATE 5 MG TAB PO SCH (11:40)
--- NOTE | 2023-09-06 11:41 | Orthopedic Consultation ---
Date of Consultation September 06, 2023 Assessment & Plan (1) Open wound of left knee with complication: Multiple open wounds left leg stump. Status post AKA. Continue wound care as per the wound nurse. We evaluated patient today. Keep incisions covered. May cleanse with soap and water such as chlorhexidine. No plans for surgical intervention at this time. Continue IV antibiotics-the 2-week infusion, next dose is due on September 14 Treatment for DVT as per medicine service. Okay from orthopedic standpoint for a diet. Keep wounds dressed. Change dressings every other day or on an as-needed basis. Will continue to follow while inpatient. Continue her nutrition supplements-Ensure max, zinc, multivitamin. Patient understands and agrees with the plan. Will discuss findings with Dr. Renner. Thank you for this consultation. History of Present Illness Reason for Consultation: left stump wounds Attending Physician: Garret Beltran MD History of Present Illness Eda Estrada is a 73 year old Female who We were consulted to see in the emergency room. Patient presented to the emergency room yesterday with increa sed left thigh discomfort and diagnosis of an age-indeterminate DVT. We were consulted to reevaluate the left stump and her wounds. This has been something that we have been treating for the last 4 to 5 weeks. She recently saw Dr. Renner in the outpatient setting on September 04, 2023. She states that the wounds have not been more painful. She has not noticed any increased drainage, swelling, redness or warmth. They have actually gotten better since she has seen infectious disease. She is on an IV infusion every 2 weeks and her next dose of that is due on September 14, 2023. She has been changing the dressings on a daily basis. She has been cleaning them with chlorhexidine soap. She is being followed in the outpatient wound clinic for Christopher Bazzi. Wound nurse consult was also placed during this inpatient stay. She has had no new injury to the left leg. Allergies Allergy/AdvReac Type Severity Reaction Status Date / Time vancomycin AdvReac Severe WORSENING Verified 09/05/23 18:35 RENAL FUNCTION cetirizine AdvReac Intermediate BOWEL Verified 09/05/23 18:35 CRAMPS gabapentin [From Neurontin] AdvReac Unknown DID NOT Verified 09/05/23 18:35 WORK FOR PAIN Home Medications Medication Instructions Recorded Confirmed Type atorvastatin 20 mg tablet 20 mg PO HS 05/21/19 09/05/23 History aspirin 81 mg chewable tablet 81 mg PO BID 06/18/20 09/05/23 History multivitamin 1 tab PO QAM 06/18/20 09/05/23 History buspirone 10 mg tablet 10 mg PO BID 06/19/20 09/05/23 History tizanidine 4 mg tablet (Zanaflex) 2 mg PO HS PRN Muscle Spasm 06/19/20 09/05/23 History acetaminophen 650 mg 650 mg PO Q8H PRN Pain 12/31/21 09/05/23 History tablet,extended release (Tylenol 8 Hour) amitriptyline 25 mg tablet 75 mg PO HS 12/31/21 09/05/23 History docusate sodium 100 mg capsule 100 mg PO BID 12/31/21 09/05/23 History (Colace) omega 4-ovh-ylm-fish oil 1,000 mg See Rx Instructions .Route .COMPLEX 12/31/21 09/05/23 History (120 mg-180 mg) capsule (Fish Oil) polysaccharide iron complex 150 mg 150 mg PO 3XWK 12/31/21 09/05/23 History iron capsule alendronate 70 mg tablet 70 mg PO WK 07/21/23 09/05/23 History amlodipine 10 mg tablet 10 mg PO QAM 07/21/23 09/05/23 History cholecalciferol (vitamin D3) 25 1,000 unit PO DAILY 07/21/23 09/05/23 History mcg (1,000 unit) tablet (Vitamin D3) hydrocodone 10 mg-acetaminophen 1 tab PO BID PRN .severe pain 07/21/23 09/05/23 History 325 mg tablet losartan 25 mg tablet 25 mg PO QAM 07/21/23 09/05/23 History oxycodone 10 mg tablet,crush 10 mg PO QAM 07/21/23 09/05/23 History resistant,extended release 12 hr (OxyContin) pregabalin 150 mg capsule 150 mg PO TID 07/21/23 09/05/23 History lactobacillus combination no.4 3 3,000 mmu cells PO DAILY #10 caps 07/26/23 09/05/23 Rx billion cell capsule (Probiotic) Patient History Medical History Superior mesenteric artery stenosis Lab test negative for COVID-19 virus Weakness Near syncope Pre-syncope Osteoarthritis Presence of pessary Hearing deficit BL FABIAN Hyperlipidemia Bile duct stone Hx of sarcoma of bone LLE; h/o surgery, radiation treatment 1989 History of anxiety Hypertension PAD (peripheral artery disease) PFO (patent foramen ovale) Surgical History History of cholecystectomy lap [place]: 07/20/20: Grade view 3, MAC#3.0, ETT 7.0 at [facility] History of ERCP History of elbow surgery Left History of carpal tunnel release Right 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) History of lumbar surgery x2 History of cancer surgery LLE History of colonoscopy History of ankle surgery Left History of section X 1 History of tonsillectomy and adenoidectomy History of hip surgery x 2 - Left Family History Mother Anxiety Cardiac disorder Father Cardiac disorder Myocardial infarction Hypertension Grandmother (Maternal) Diabetes Other No family history of adverse response to anesthesia Social History Smoking Status: Never smoker Second Hand Exposure: No; Do You Dip or Chew Tobacco: No; Hx Alcohol Use: No Hx Substance Use: No Preferred Language: Chinese Communication Ability: Effective Appliance Adjuster Required: No Beliefs That Will Affect Care: None marital status: Current Living Situation: Spouse and Family Current Living Situation Comment: family helps Feels Safe at Home: Yes Assistive Devices: Bedside Commode, Glasses, Hearing Aid - Bilateral, Hospital Bed and Wheelchair Review of Systems Review of Systems: as per HPI. Physical Exam Musculoskeletal: Exam of her left leg stump: No intraarticular fluid Stump has mild erythema and is tender, especially medially. 2 New pustules at anterior aspect of incision, more redness in this area. No active drainage from open wounds/ulcers. Mild purulence from posterior open wound. Less painful here today after appt on Monday with purulent material expressed. previous surgical wounds healing, not completely healed. No new pustules present Results & Data Vital Signs (Past 12 Hours) Vital Signs Pulse Pulse Resp BP Pulse Ox Pulse Ox O2 Del Method 09/06/23 07:38 79 16 127/65 96 Nasal Cannula 09/06/23 07:08 84 09/06/23 02:18 78 16 124/59 L 90 Room Air 09/06/23 02:01 91 09/06/23 02:00 77 12 124/59 L 91 Room Air 09/06/23 01:00 79 16 136/68 92 Room Air 09/06/23 00:00 80 18 130/64 89 L Room Air O2 Del Method 09/06/23 07:38 09/06/23 07:08 09/06/23 02:18 09/06/23 02:01 Room Air 09/06/23 02:00 09/06/23 01:00 09/06/23 00:00 Previous cultures results grew out Corynebacterium species Laboratory Results 09/06/23 09/06/23 09/05/23 Range/Units 08:55 02:02 16:19 WBC 7.80 7.54 (4.8-10.8) K/ul RBC 3.76 L 4.73 (4.20-5.40) M/uL Hgb 10.0 L 9.9 L 12.2 (12.0-16.0) g/dl Hct 32.3 L 31.5 L 39.9 (37.0-47.0) % MCV 83.8 84.4 (80.0-100.0) fL MCH 26.3 25.8 (25.0-34.0) pg MCHC 31.4 L 30.6 L (32.0-36.0) g/dL RDW Std Deviation 48.5 H 47.6 H (36.4-46.3) fL RDW Coeff of Leslie 15.9 H 15.8 H (11.5-14.5) % Plt Count 263 298 (130-400) K/uL MPV 10.4 10.4 (9.4-12.4) fL Immature Gran % (Auto) 0.4 0.3 % Neut % (Auto) 52.0 55.3 % Lymph % (Auto) 30.8 29.4 % [place] % (Auto) 7.4 6.1 % Eos % (Auto) 8.8 8.2 % Baso % (Auto) 0.6 0.7 % Neut # (Auto) 4.05 4.17 (1.40-6.50) K/uL Lymph # (Auto) 2.40 2.22 (1.20-3.40) K/uL [place] # (Auto) 0.58 0.46 (0.11-0.59) K/uL Eos # (Auto) 0.69 H 0.62 H (0.00-0.50) K/uL Baso # (Auto) 0.05 0.05 (0.00-0.20) K/uL Immature Gran # (Auto) 0.03 0.02 (0.01-0.20) K/uL PT 10.6 (9.0-12.0) Seconds INR 1.0 (0.9-1.1) APTT 28 (21-31) Seconds PTT Ratio 1.0 Heparin Anti-Xa, Unfract 0.21 L 0.37 (0.3-0.7) IU/ml Sodium 138 138 (136-145) mmol/L Potassium 4.0 4.0 (3.5-5.1) mmol/L Chloride 104 102 (98-107) mmol/L Carbon Dioxide 27 28 (21-32) mmol/L Anion Gap 7 8 (3-11) BUN 13 15 (6-23) mg/dl Creatinine 0.64 0.64 (0.6-1.2) mg/dl Est Cr Clr Drug Dosing 75.8 75.8 ml/min Est GFR ( Amer) 103.3 103.3 ml/min Est GFR (Non-Af Amer) 89.2 89.2 ml/min BUN/Creatinine Ratio 20.3 H 23.4 H (10-20) Glucose 106 H 89 (70-99(Fasting)) mg/dl Calcium 9.0 10.0 (8.6-10.3) mg/dl Magnesium 1.6 L (1.7-2.4) mg/dl Total Bilirubin 0.3 (0.2-1.0) mg/dl AST 22 (13-39) U/L ALT 12 (7-52) U/L Alkaline Phosphatase 352 H (34-104) U/L Troponin I High Sens 8.0 (0-14) pg/ml Total Protein 8.0 (6.0-8.3) gm/dl Albumin 4.0 (3.4-5.0) gm/dl Globulin 4.0 (2.5-4.0) gm/dl Albumin/Globulin Ratio 1.0 (0.9-2) (1) Open wound of left knee with complication Encounter type: initial encounter Qualified Code(s): S81.002A - Unspecified open wound, left knee, initial encounter
--- NOTE | 2023-09-06 14:01 | Electrocardiogram Report ---
Test Reason : Blood Pressure : / mmHG Vent. Rate : 083 BPM Atrial Rate : 083 BPM P-R Int : 158 ms QRS Dur : 094 ms QT Int : 360 ms P-R-T Axes : 035 009 023 degrees QTc Int : 423 ms Sinus rhythm with marked sinus arrhythmia Nonspecific ST and T wave abnormality Abnormal ECG When compared with ECG of 31-DEC-2021 13:38, Premature ventricular complexes are no longer Present Confirmed by Gualberto Clay ([id number]) on 09/06/2023 2:01:05 PM Referred By: REFERRED SELF Confirmed By:Gualberto Clay
--- NOTE | 2023-09-06 14:19 | Electrocardiogram Report ---
Test Reason : Blood Pressure : / mmHG Vent. Rate : 096 BPM Atrial Rate : 096 BPM P-R Int : 162 ms QRS Dur : 094 ms QT Int : 346 ms P-R-T Axes : 043 016 054 degrees QTc Int : 437 ms Sinus rhythm with marked sinus arrhythmia Abnormal ECG When compared with ECG of 05-SEP-2023 17:33, (unconfirmed) Inverted T waves have replaced nonspecific T wave abnormality in Lateral leads Confirmed by Gualberto Clay ([id number]) on 09/06/2023 2:19:08 PM Referred By: REFERRED SELF Confirmed By:Gualberto Clay
[2023-09-06 14:29] LABS: Hematocrit (blood only) 30.5 % (37.0-47.0); Hemoglobin 9.6 g/dl (12.0-16.0)
--- NOTE | 2023-09-06 15:28 | Consultation ---
Date of Consultation September 06, 2023 Assessment & Plan (1) PAD (peripheral artery disease): Pt with PAD noted on US of RLE. She is asymtpomatic from this. Her R DP pulse remains palpable, toes warm and pink. No indications for intervention presently. Will see pt in office in 1 year to reeval for any new sx. She is agreeable. Please call if needed. History of Present Illness Reason for Consultation: PAD Attending Physician: Garret Beltran MD History of Present Illness 73 yo f with multiple medical problems, inclduing PAD, HTN, hyperlipidemia, PFO, hx of spinal fusion, LLE osteomyelitis s/p AKA, admitted with DVT and PE, seen in consultation for PAD noted in RLE. Pt states she does not ambulate since her LLE amputation in 2016. Denies pain in RLE except in her R knee area only. No ulcerations or rest pain or discoloration in RLE. Admits pain in LLE AKA stump. Denies FABIAN, fever, chest pain,SOB, abd pain, N/V, other complaints. Arterial US of RLE demonstrates diffuse disease. Allergies Allergy/AdvReac Type Severity Reaction Status Date / Time vancomycin AdvReac Severe WORSENING Verified 09/05/23 18:35 RENAL FUNCTION cetirizine AdvReac Intermediate BOWEL Verified 09/05/23 18:35 CRAMPS gabapentin [From Neurontin] AdvReac Unknown DID NOT Verified 09/05/23 18:35 WORK FOR PAIN Home Medications Medication Instructions Recorded Confirmed Type atorvastatin 20 mg tablet 20 mg PO HS 05/21/19 09/05/23 History aspirin 81 mg chewable tablet 81 mg PO BID 06/18/20 09/05/23 History multivitamin 1 tab PO QAM 06/18/20 09/05/23 History buspirone 10 mg tablet 10 mg PO BID 06/19/20 09/05/23 History tizanidine 4 mg tablet (Zanaflex) 2 mg PO HS PRN Muscle Spasm 06/19/20 09/05/23 History acetaminophen 650 mg 650 mg PO Q8H PRN Pain 12/31/21 09/05/23 History tablet,extended release (Tylenol 8 Hour) amitriptyline 25 mg tablet 75 mg PO HS 12/31/21 09/05/23 History docusate sodium 100 mg capsule 100 mg PO BID 12/31/21 09/05/23 History (Colace) omega 6-qhy-bjh-fish oil 1,000 mg See Rx Instructions .Route .COMPLEX 12/31/21 09/05/23 History (120 mg-180 mg) capsule (Fish Oil) polysaccharide iron complex 150 mg 150 mg PO 3XWK 12/31/21 09/05/23 History iron capsule alendronate 70 mg tablet 70 mg PO WK 07/21/23 09/05/23 History amlodipine 10 mg tablet 10 mg PO QAM 07/21/23 09/05/23 History cholecalciferol (vitamin D3) 25 1,000 unit PO DAILY 07/21/23 09/05/23 History mcg (1,000 unit) tablet (Vitamin D3) hydrocodone 10 mg-acetaminophen 1 tab PO BID PRN .severe pain 07/21/23 09/05/23 History 325 mg tablet losartan 25 mg tablet 25 mg PO QAM 07/21/23 09/05/23 History oxycodone 10 mg tablet,crush 10 mg PO QAM 07/21/23 09/05/23 History resistant,extended release 12 hr (OxyContin) pregabalin 150 mg capsule 150 mg PO TID 07/21/23 09/05/23 History lactobacillus combination no.4 3 3,000 mmu cells PO DAILY #10 caps 07/26/23 09/05/23 Rx billion cell capsule (Probiotic) Patient History Medical History Superior mesenteric artery stenosis Lab test negative for COVID-19 virus Weakness Near syncope Pre-syncope Osteoarthritis Presence of pessary Hearing deficit BL FABIAN Hyperlipidemia Bile duct stone Hx of sarcoma of bone LLE; h/o surgery, radiation treatment 1989 History of anxiety Hypertension PAD (peripheral artery disease) PFO (patent foramen ovale) Surgical History History of cholecystectomy lap [place]: 07/20/20: Grade view 3, MAC#3.0, ETT 7.0 at [facility] History of ERCP History of elbow surgery Left History of carpal tunnel release Right 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) History of lumbar surgery x2 History of cancer surgery LLE History of colonoscopy History of ankle surgery Left History of section X 1 History of tonsillectomy and adenoidectomy History of hip surgery x 2 - Left Family History Mother Anxiety Cardiac disorder Father Cardiac disorder Myocardial infarction Hypertension Grandmother (Maternal) Diabetes Other No family history of adverse response to anesthesia Social History Smoking Status: Never smoker Second Hand Exposure: No; Do You Dip or Chew Tobacco: No; Hx Alcohol Use: No Hx Substance Use: No Preferred Language: Maori Communication Ability: Effective Flight Test Mechanic Required: No Beliefs That Will Affect Care: Mandaeism Mandaeism Beliefs: Adventist marital status: Current Living Situation: Spouse and Family Current Living Situation Comment: family helps Feels Safe at Home: Yes Assistive Devices: Bedside Commode, Glasses, Hearing Aid - Bilateral, Hospital Bed and Wheelchair Review of Systems Review of Systems: All systems reviewed & are unremarkable except as noted in HPI & below Physical Exam Constitutional: WD/WN, vitals as above + obese; not in distress ENMT: Ears: + hearing impairment Neck: trachea midline Respiratory: normal respiratory effort, lungs clear to auscultation Auscultation: + diminished lung sounds Cardiovascular: Rate/Rhythm: regular rate and regular rhythm Vessels: posterior tibial pulses present (RLE nonpalpable, LLE AKA) and dorsalis pedis pulses present (RLE +1, LLE AKA); + abnormal peripheral pulses Extremities: normal capillary refill; no edema Gastrointestinal (Abdomen): Inspection/Auscultation: normal bowel sounds; + abdomen abnormal to inspection (colostomy) Percussion/Palpation: abdomen soft; abdomen nontender Musculoskeletal: no cyanosis or clubbing, extremities motor strength 5/5 Extremities: + amputation noted (LLE) Skin: no rashes, warm and dry Neurologic: moves all extremities and awake; no focal motor deficits and not confused Psychiatric: A+Ox3, euthymic affect Results & Data Vital Signs (Past 12 Hours) Vital Signs Pulse Pulse Resp BP Pulse Ox O2 Del Method O2 Flow Rate 09/06/23 15:18 81 09/06/23 14:20 85 16 108/95 98 Nasal Cannula 2 09/06/23 12:59 81 16 100/43 L 96 Nasal Cannula 2 09/06/23 07:38 79 16 127/65 96 Nasal Cannula 09/06/23 07:08 84
[2023-09-06 16:48] LABS: ANTI-Xa, UFH(UnfractionatedHep 0.12 IU/ml (0.3-0.7)
[2023-09-06] MEDS ORDERED: HEPARIN SOD (PORCINE) 1000 UNIT/ML ONE (16:56)
--- NOTE | 2023-09-06 17:20 | Hospitalist Progress Note ---
Date of Service September 06, 2023 Assessment & Plan (1) DVT (deep venous thrombosis): Plan: 73-year-old female with past med history significant for hyperlipidemia, superior mesenteric artery stenosis, hypertension, patent foramen ovale, peripheral vascular disease, rectocele, cystocele, degenerative arthritis, polyneuropathy, iron deficiency anemia, s/p colostomy, s/p left above-knee amputation and anxiety was sent in for left lower extremity arterial ultrasound for ongoing infection of left above-knee amputation site and found to have age- indeterminate left common femoral and superficial femoral veins DVT and also significant peripheral vascular disease. AGE-INDETERMINATE LEFT COMMON FEMORAL, SUPERFICIAL FEMORAL VEINS DVT Arterial Doppler: 1. Age indeterminate deep venous thrombus within the left common femoral and superficial femoral veins. This finding will be called/faxed to ordering provider at time of dictation. 2. Moderate to extensive atherosclerotic plaque within the right lower extremity. Findings suggestive of stenoses within the right common femoral and superficial femoral arteries. Patent right calf vessels however flow dampened and monophasic within these vessels. 3. 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 Status post left below-knee amputation. 4. Mildly diminished right ankle to brachial index of 0.75. Age indeterminant Started on IV heparin Patient reports her sister unfortunately of a pulmonary embolism Patient does not recall any history of PE or DVTs in the past Will consult hematology service for recommendation LEFT LOWER EXTREMITY PERIPHERAL VASCULAR DISEASE significant stenosis seen possibly chronic ER notified vascular surgery Currently started on IV heparin which we will continue Also patient having ongoing infection in the left above-knee amputation site Await vascular surgery input: No intervention at this point Continue aspirin Will need to increase Lipitor from 20 to 40 mg daily LEFT ABOVE-KNEE AMPUTATION SITE INFECTION s/p I&D on July 21 Currently following with wound care Recently started on antibiotic IV [facility] Wound care Will consult Ortho while patient in the hospital: No acute intervention at this point S/p colostomy Patient had history of severe abdominal pain and abdominal protrusion life flighted to [facility] and had bowel resection Was told she does not have Crohn's Hypertension On amlodipine and losartan Will monitor Chronic pain S/p left left above-knee amputation 2016 Current home pain medications Hyperlipidemia On statin DVT prophylaxis On IV heparin Disposition Lives at home Full code Admission and Anticipated Discharge Date Admission Date: September 05, 2023 Subjective Follow-up for femoral vein DVTs, etc. Seen resting in bed, watching TV, sitting up, not in distress, comfortable States she feels okay overall Reports pain on the left AKA site which is ongoing since surgery Relieved by as needed pain medications Denies chest pain, shortness of breath, palpitations, dizziness No other new symptoms Review of Systems Review of Systems: all noted and negative except for above Physical Exam Physical Exam: General- oriented x 3, not in distress, speaks in sentences with no effort or accessory muscle use Eyes- anicteric Neck- no JVD Lungs- clear breath sounds bilaterally, no rales/wheezes Heart- normal rate, regular rhythm; no murmurs Abdomen- normal bowel sounds, nondistended, soft, no tenderness Extremities- no pretibial edema, no calf tenderness Status post left AKA,-dressing in place No bleeding or discharge noted Neuro- alert, oriented x 3; no gross focal neurologic deficits Skin- warm & dry Results & Data Results & Data Vital Signs (Past 12 Hours) Vital Signs Pulse Pulse Resp BP Pulse Ox O2 Del Method O2 Flow Rate 09/06/23 16:23 84 16 118/58 L 96 Room Air 2 09/06/23 15:32 81 15 104/61 93 Nasal Cannula 2 09/06/23 15:18 81 09/06/23 14:20 85 16 108/95 98 Nasal Cannula 2 09/06/23 12:59 81 16 100/43 L 96 Nasal Cannula 2 09/06/23 07:38 79 16 127/65 96 Nasal Cannula 09/06/23 07:08 84 all noted and reviewed including below
[2023-09-06 20:20] LABS: Hemoglobin 9.5 g/dl (12.0-16.0)
[2023-09-06] MEDS: HEPARIN SODIUM/DEXTROSE 25,000 UNITS/500 ML BAG IV SCH (20:42)
[2023-09-06] MEDS: ATORVASTATIN 20 MG TAB PO SCH (21:17)
[2023-09-06] MEDS: AMITRIPTYLINE HCL 25 MG TAB PO SCH (21:18)
[2023-09-06 23:33] LABS: ANTI-Xa, UFH(UnfractionatedHep 0.22 IU/ml (0.3-0.7)
[2023-09-07 02:06] LABS: Hemoglobin 9.1 g/dl (12.0-16.0)
[2023-09-07] MEDS: MoRPHine SULFATE 4 MG/ML 1 ML CARP\\VIAL IV PRN ×3 (05:56→20:03)
--- NOTE | 2023-09-07 06:58 | Hospitalist Progress Note ---
Date of Service September 07, 2023 Assessment & Plan (1) DVT (deep venous thrombosis): Plan: DVT at the site of previous amputation may be a consequence of local factors. Appropriately on heparin and given the ongoing potential for bleeding from the wound and possible ongoing needed interventions, it may be important to have a flexible (more quickly reversible) ongoing anticoagulation plan. Heparin would certainly serve that purpose for now and she could transition to either subcutaneous enoxaparin or warfarin as an outpatient given the short half-life of the former and the easy reversibility of the latter should major bleeding occur. While DOACs are a more convenient form of long-term anticoagulation, they are not easily reversed and might be better avoided until the stump wound is completely stabilized. Will follow with more complete recommendations and full consultation this evening (2) Anemia: Plan: Likely multifactorial and without other signs on CBC of a more significant under lying hematologic disorder. Will be important to optimize her hemoglobin levels for wound healing and also as a preemptive hedge against any threat for major bleeding. Anemia workup has been requested (3) Pulmonary nodule: Plan: Small lung nodule probably not physiologically relevant nor contributing to the presentation of DVT but will need to be followed in time Plan See above recommendations, full consult to follow Admission and Anticipated Discharge Date Admission Date: September 05, 2023 Subjective This is a preliminary review and response to hematology consultation. Full consult will follow this evenin Results & Data Results & Data Vital Signs (Past 12 Hours) Vital Signs Temp Pulse Pulse Pulse Resp BP Pulse Ox 09/07/23 03:39 36.5 C 67 18 110/67 96 09/06/23 23:05 83 09/06/23 22:47 09/06/23 22:11 36.9 C 76 16 120/75 95 O2 Del Method O2 Flow Rate 09/07/23 03:39 Nasal Cannula 2 09/06/23 23:05 09/06/23 22:47 Nasal Cannula 2 09/06/23 22:11 Nasal Cannula 2 PG Care Time/CCT Total # of Minutes Spent Total Time Spent with Patient: Total time spent is greater than 50% in coordination of care (as documented) at patient's floor/unit and/or counseling patient: Coding Level of Care Code None Diagnoses DVT (deep venous thrombosis) I82.409 Anemia D64.9 Pulmonary nodule R91.1
[2023-09-07 07:40] LABS: Reticulocyte % 2.6 % (0.5-2.0); Reticulocytes # 0.09 10^6/uL (0.02-0.10)
[2023-09-07 07:54] LABS: ANTI-Xa, UFH(UnfractionatedHep 0.33 IU/ml (0.3-0.7)
[2023-09-07 08:16] LABS: Folate (Folic Acid),Ser orPlas > 22.30 ng/ml (>5.38)
[2023-09-07 08:17] LABS: Vitamin B12 545 pg/ml (180-914)
[2023-09-07] MEDS: amLODIPine BESYLATE 5 MG TAB PO SCH (08:31)
[2023-09-07] MEDS: ASPIRIN 81 MG ECTAB PO SCH ×2 (08:31→21:05)
[2023-09-07] MEDS: MULTIVITAMIN TAB PO SCH (08:31)
[2023-09-07] MEDS: DOCUSATE SODIUM 100 MG CAP PO SCH ×2 (08:31→21:05)
[2023-09-07] MEDS: PREGABALIN 150 MG CAP PO SCH ×3 (08:33→21:05)
[2023-09-07] MEDS: oxyCODONE HCL 10 MG TABCR (OxyCONTIN) PO SCH (08:33)
[2023-09-07 08:48] LABS: Ferritin 150.4 ng/ml (8-388)
--- NOTE | 2023-09-07 10:23 | Orthopedic Progress Note ---
Date of Service September 07, 2023 Assessment & Plan (1) Open wound of left knee with complication: Plan: The patient was evaluated in her room today. Conservative care measures were discussed. Her open wounds actually appear to be quite clean and overall look good. She has been seen by the wound care nurse and dressings have been applied. From an orthopedic standpoint, we will continue to observe. There is no change in treatment. She does not require surgical intervention at this time. Continue with wound care dressings. Discharge will be up to the hospitalist team based on her other medical comorbidities. Admission and Anticipated Discharge Date Admission Date: September 05, 2023 Subjective This 73-year-old female seen today in her room. She denies any pain at this time. She is wondering when she can go home. She states there is soreness on the undersurface of her left stump. She denies any fevers, chills, or sweats. No other complaints. Physical Exam Physical Exam: General: Well-developed, well-nourished, elderly female, in no acute distress. Laying in bed. Talking on her phone. Alert. Skin: Warm and dry with good turgor. No rashes. She has multiple small open wounds present around her left stump. There is some minor drainage on her dressings. No significant bleeding or oozing. There is less erythema around the wound edges compared to her picture from yesterday. Musculoskeletal: The patient has intact hip motion at this time. Neurologic: Gross sensation is intact across the end of her stump by soft touch. Results & Data Vital Signs (Past 12 Hours) Vital Signs Temp Pulse Pulse Resp BP Pulse Ox O2 Del Method 09/07/23 07:57 36.5 C 69 18 110/69 94 Nasal Cannula 09/07/23 03:39 36.5 C 67 18 110/67 96 Nasal Cannula 09/06/23 23:05 83 09/06/23 22:47 Nasal Cannula O2 Flow Rate 09/07/23 07:57 2 09/07/23 03:39 2 09/06/23 23:05 09/06/23 22:47 2 Laboratory Results CBC obtained today shows her H&H of 9.1 and 29.0. This has dropped since yesterday. Iron level is low at 15. TIBC is also low at 191. Vitamin B12 and folate are normal. (1) Open wound of left knee with complication Encounter type: initial encounter Qualified Code(s): S81.002A - Unspecified open wound, left knee, initial encounter
[2023-09-07] MEDS: ADVANCED PROBIOTIC 1250 MG CAPSULE PO SCH (12:40)
[2023-09-07] MEDS: busPIRone 5 MG TAB PO SCH ×2 (12:40→21:05)
[2023-09-07] MEDS: CHOLECALCIFEROL 1,000 UNITS 25 MCG TAB PO SCH (12:41)
[2023-09-07] MEDS: LOSARTAN POTASSIUM 25 MG TAB PO SCH (12:41)
--- NOTE | 2023-09-07 16:26 | Hospitalist Progress Note ---
Date of Service September 07, 2023 Assessment & Plan (1) DVT (deep venous thrombosis): Plan: 73-year-old female with past med history significant for hyperlipidemia, superior mesenteric artery stenosis, hypertension, patent foramen ovale, peripheral vascular disease, rectocele, cystocele, degenerative arthritis, polyneuropathy, iron deficiency anemia, s/p colostomy, s/p left above-knee amputation and anxiety was sent in for left lower extremity arterial ultrasound for ongoing infection of left above-knee amputation site and found to have age- indeterminate left common femoral and superficial femoral veins DVT and also significant peripheral vascular disease. AGE-INDETERMINATE LEFT COMMON FEMORAL, SUPERFICIAL FEMORAL VEINS DVT Arterial Doppler: 1. Age indeterminate deep venous thrombus within the left common femoral and superficial femoral veins. This finding will be called/faxed to ordering provider at time of dictation. 2. Moderate to extensive atherosclerotic plaque within the right lower extremity. Findings suggestive of stenoses within the right common femoral and superficial femoral arteries. Patent right calf vessels however flow dampened and monophasic within these vessels. 3. 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 Status post left below-knee amputation. 4. Mildly diminished right ankle to brachial index of 0.75. Age indeterminant Started on IV heparin Patient reports her sister unfortunately of a pulmonary embolism Patient does not recall any history of PE or DVTs in the past Will consult hematology service for recommendation 09/07 Continue IV heparin for now, plan to transition to Lovenox +/- Coumadin tomorrow Awaiting final recommendations from Dr. Palafox May need to have hypercoagulable workup as an outpatient given family history: Sister of acute pulmonary embolism LEFT LOWER EXTREMITY PERIPHERAL VASCULAR DISEASE significant stenosis seen possibly chronic ER notified vascular surgery Currently started on IV heparin which we will continue Also patient having ongoing infection in the left above-knee amputation site Await vascular surgery input: No intervention at this point Continue aspirin Will need to increase Lipitor from 20 to 40 mg daily LEFT ABOVE-KNEE AMPUTATION SITE INFECTION s/p I&D on July 21 Currently following with wound care Recently started on antibiotic IV [facility] Wound care Will consult Ortho while patient in the hospital: No acute intervention at this point No signs of worsening infection Continue daily wound care S/p colostomy Patient had history of severe abdominal pain and abdominal protrusion life flighted to [facility] and had bowel resection Was told she does not have Crohn's Hypertension On amlodipine and losartan BP on the lower side DC amlodipine Chronic pain S/p left left above-knee amputation 2017 Current home pain medications Hyperlipidemia On statin DVT prophylaxis On IV heparin Disposition Lives at home Full code Admission and Anticipated Discharge Date Admission Date: September 05, 2023 Subjective Follow-up for left femoral DVTs, etc. Seen resting in bed, comfortable, not in distress In good spirits States she is having intermittent severe pain over the left wound area, pain medications relieving No shortness of breath, chest pain No other new symptom Review of Systems Review of Systems: all noted and negative except for above Physical Exam Physical Exam: General- oriented x 3, not in distress, speaks in sentences with no effort or accessory muscle use Eyes- anicteric Neck- no JVD Lungs- clear breath sounds bilaterally, no rales/wheezes Heart- normal rate, regular rhythm; no murmurs Abdomen- normal bowel sounds, nondistended, soft, nontender Extremities- no pretibial edema, no calf tenderness Left lower extremity: Multiple small wounds over the stump area noted, minimal surrounding erythema, no warmth or discharge or tenderness Neuro- alert, oriented x 3; no gross focal neurologic deficits Skin- warm & dry Results & Data Results & Data Vital Signs (Past 12 Hours) Vital Signs Temp Pulse Pulse Resp BP Pulse Ox O2 Del Method 09/07/23 16:02 37.1 C 72 18 97/50 L 93 Nasal Cannula 09/07/23 11:22 36.7 C 68 18 100/56 L 92 Nasal Cannula 09/07/23 08:30 Nasal Cannula 09/07/23 08:00 65 09/07/23 07:57 36.5 C 69 18 110/69 94 Nasal Cannula O2 Flow Rate 09/07/23 16:02 2 09/07/23 11:22 2 09/07/23 08:30 2 09/07/23 08:00 09/07/23 07:57 2 all noted and reviewed including below
[2023-09-07] MEDS: HEPARIN SODIUM/DEXTROSE 25,000 UNITS/500 ML BAG IV SCH ×2 (17:40→17:45)
[2023-09-07] MEDS: AMITRIPTYLINE HCL 25 MG TAB PO SCH (21:05)
[2023-09-07] MEDS: ATORVASTATIN 20 MG TAB PO SCH (21:05)
[2023-09-08] MEDS: MoRPHine SULFATE 4 MG/ML 1 ML CARP\\VIAL IV PRN ×4 (00:04→20:15)
--- NOTE | 2023-09-08 06:42 | Consultation ---
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 B12 and folic acid levels good range. Although her ferritin is normal there may be some element of pseudonormalization and iron percent saturation is low. Ganzoni equation does indicate a Red cell iron deficit of approximately 600 mg even if she has adequate iron stores. On anticoagulation she will have some risk for bleeding so we will be important to optimize her hemoglobin levels. Would suggest Venofer 300 mg intravenously x 2 doses spaced by 4 to 5 days apart. There may be other elements to her anemia as well particularly anemia of chronic disease, can reassess hemoglobin levels when she is iron replete. Folic acid levels are stable but it is helpful to supplement folic acid empirically if she could quickly deplete that as she increases her erythropoiesis in response to the iron. 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 She also has active infection in that extremity in the wake of recent repetitive trauma. Patient has a family history both of DVT in her father and pulmonary embolism in her sister but she herself has no previous diagnosed VTE events despite a significant number of previous surgical procedures. The likelihood of a germline hypercoagulable mutation seems quite small and it is not likely that a "hypercoagulable" screen is going to be helpful. She gives no signs or symptoms of active malignancy other than noting the lung nodule which is discussed separately and warrants close follow-up. Overall the DVT probably represents a confluence of local factors including compromised vascular flow in the wake of her amputation and known peripheral vascular disease/radiation changes, inflammatory changes due to the infection, exacerbation by some relative immobility. Issues: 1. Immediate anticoagulation is certainly appropriate with IV heparin, question will be to what extent is she at risk for bleeding given the tissue breakdown that she has immediately and as well mightl she potentially need urgent intervention at some point that might require temporary cessation of anticoagulation. As we transition to an outpatient regimen, may be preferable to use enoxaparin or warfarin at least for the short run given the quicker offset of action that can be accomplished with both of those. As she stabilizes over time could transition to a DOAC at such time as we do not think that she has significant ongoing bleeding risk and will not need further immediate procedures 2. Duration of anticoagulation. Certainly would give a minimum of 3 months. We do think that this was potentially "provoked" in the context of the above factors but we will not be able to eliminate the vascular stasis or immobility issues going forward. There is also the interesting concern over the renal infarct and whether that represents a previous paradoxical embolism/VTE event given an apparent history of PFO. Would consider more formal venous duplex s tudies of both lower extremities to see if there is contralateral clot and also to establish a better comparative baseline for the left lower extremity and then readdress the questions of duration anticoagulation as we see how well she recovers from acute issues especially what further issues identified by workup with pulmonary nodule in the left lower extremity pain (3) Pulmonary nodule: Former history of smoking stopped less than 15 years ago and on that basis alone certainly follow-up would be important. Notably she also has a history of liposarcoma though that is quite remote. 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 That combined with the current presentation with lower extremity DVT suggests the possibility for previous paradoxical embolism, to the extent that that is at all consideration that could potentially impact on recommendations for duration of anticoagulation (5) PFO (patent foramen ovale): She reports a history of PFO though we cannot confirm that with available studies. It may be helpful to better establish the presence or absence of that as we consider the ultimate duration of anticoagulation (6) Liposarcoma of left lower extremity: Remote history of liposarcoma but as above, that could potentially recur as metastatic lesions in the lung. Short-term follow-up of chest CT may be worthwhile. (7) Leg pain, left: Describe leg pain seems somewhat out of proportion to her DVT. Exam does not suggest local recurrence of her sarcoma though that cannot be completely excluded. I would defer to orthopedics and vascular surgery as to whether we should consider additional structural imaging of the left leg. Plan 1. Acute heparinization is certainly appropriate anticoagulation and as above would transition to enoxaparin or warfarin at immediate discharge. Transition to outpatient management could be well accomplished through the Coumadin clinic. Over time as we are assured that she is not showing issues of bleeding and will not need urgent interventions, could consider an ultimate transition to a DOAC 2. Would anticoagulate for at least 3 months but during that time will need to be considering whether her ongoing immobility and tissue/vascular compromise perhaps combined with any suspicion of potential previous VTE events that resulted in paradoxical embolization to the kidney may suggest the need for longer-term anticoagulation 3. Standard bilateral lower extremity duplex studies might be important to identify any occult thrombosis on the contralateral side and as well to serve as a baseline for future comparison on the ipsilateral side which might be helpful both now and in the future for guiding anticoagulation choices 4. Would supplement her iron with a dose of Venofer 300 mg IV now repeated in 4 to 5 days and also empirically start folic acid 5. Repeat CT scan of her chest in 3 months, sooner if there is any evolution of pulmonary symptoms 6. Would review with orthopedics and vascular surgery as to whether they think the long-term infection/tissue damage/vascular compromise is sufficient to explain her pain in the left leg or if not whether it is worthwhile to do more comprehensive two-dimensional structural imaging of the bone and soft tissues there 7. PCP should review with her after discharge to what extent may need to consider colonoscopy or other GI studies given the iron deficiency though that may be explained simply on the basis of chronic oozing/blood loss at the site of her stump infections 8. Would seek further assessment for PFO perhaps available through historical cardiovascular studies that are not immediately accessible in the current database I will be happy to follow the patient while she is admitted. At discharge, it would be worthwhile to formally refer her to the warfarin clinic for specific management of her anticoagulation. I am sure that my colleagues in the [facility] would be available to follow-up with any hematology or oncology issues that persist or arise after discharge -please refer to them as needed History of Present Illness Reason for Consultation: Patient with a previous history of liposarcoma of the left leg now status post AKA amputation admitted with left lower extremity DVT incidentally discovered during workup for arterial disease in the context of a persistent stump infection Attending Physician: Garret Beltran MD History of Present Illness History apparently starts with 1990 diagnosis of liposarcoma of the left leg. This had presented as a leg mass felt to be a clot or infection that was resected by a community surgeon with liposarcoma diagnosed only after pathology specimen was reviewed. She was referred to [facility] where more extensive surgical resection was performed (though not amputation) followed by extended radiotherapy. She had recurrent infections thereafter ultimately attributed to a retained stitch but unfortunately that together with peripheral arterial compromise ultimately led to her 2017 amputation. 1 month prior to admission she apparently injured the stump at home on the door of her dryer with a number of subsequent injuries on car doors and the side of her wheelchair which is led to persistent infections. This has been followed by wound clinic and was being evaluated with arterial ultrasound studies when DVT was identified. She is now admitted and on heparin and tolerating it reasonably well though with some continued pain in the stump. She has no personal history of VTE despite multiple previous surgeries. She had a sister who of a pulmonary embolism at age 62 and is uncertain of the details but indicates her sister had uneventful pregnancies and younger life and no previous VTE to her knowledge. Her father also had a history of DVT and again she does not have extensive knowledge of the context of that. Patient is a smoker who stopped in 2013. She has no personal history of other significant malignancies. She does have a colostomy after presenting with a perforated bowel but this was apparently related to diverticulitis or some other nonmalignant condition She indicates that she has a history of patent foramen ovale. Cardiac studies available in our database only indicate that PFO testing was not done on the most recent echocardiogram and otherwise we do not have definitive data for the presence of that anomaly Allergies Allergy/AdvReac Type Severity Reaction Status Date / Time vancomycin AdvReac Severe WORSENING Verified 09/05/23 18:35 RENAL FUNCTION cetirizine AdvReac Intermediate BOWEL Verified 09/05/23 18:35 CRAMPS gabapentin [From Neurontin] AdvReac Unknown DID NOT Verified 09/05/23 18:35 WORK FOR PAIN Home Medications Medication Instructions Recorded Confirmed Type atorvastatin 20 mg tablet 20 mg PO HS 05/21/19 09/05/23 History aspirin 81 mg chewable tablet 81 mg PO BID 06/18/20 09/05/23 History multivitamin 1 tab PO QAM 06/18/20 09/05/23 History buspirone 10 mg tablet 10 mg PO BID 06/19/20 09/05/23 History tizanidine 4 mg tablet (Zanaflex) 2 mg PO HS PRN Muscle Spasm 06/19/20 09/05/23 History acetaminophen 650 mg 650 mg PO Q8H PRN Pain 12/31/21 09/05/23 History tablet,extended release (Tylenol 8 Hour) amitriptyline 25 mg tablet 75 mg PO HS 12/31/21 09/05/23 History docusate sodium 100 mg capsule 100 mg PO BID 12/31/21 09/05/23 History (Colace) omega 7-tvg-yho-fish oil 1,000 mg See Rx Instructions .Route .COMPLEX 12/31/21 09/05/23 History (120 mg-180 mg) capsule (Fish Oil) polysaccharide iron complex 150 mg 150 mg PO 3XWK 12/31/21 09/05/23 History iron capsule alendronate 70 mg tablet 70 mg PO WK 07/21/23 09/05/23 History amlodipine 10 mg tablet 10 mg PO QAM 07/21/23 09/05/23 History cholecalciferol (vitamin D3) 25 1,000 unit PO DAILY 07/21/23 09/05/23 History mcg (1,000 unit) tablet (Vitamin D3) hydrocodone 10 mg-acetaminophen 1 tab PO BID PRN .severe pain 07/21/23 09/05/23 History 325 mg tablet losartan 25 mg tablet 25 mg PO QAM 07/21/23 09/05/23 History oxycodone 10 mg tablet,crush 10 mg PO QAM 07/21/23 09/05/23 History resistant,extended release 12 hr (OxyContin) pregabalin 150 mg capsule 150 mg PO TID 07/21/23 09/05/23 History lactobacillus combination no.4 3 3,000 mmu cells PO DAILY #10 caps 07/26/23 09/05/23 Rx billion cell capsule (Probiotic) Patient History Medical History (Updated 09/08/23 @ 06:48 by Reji Palafox MD) Anemia Superior mesenteric artery stenosis Lab test negative for COVID-19 virus Weakness Near syncope Pre-syncope Osteoarthritis Presence of pessary Hearing deficit BL FABIAN Hyperlipidemia Bile duct stone Hx of sarcoma of bone LLE; h/o surgery, radiation treatment 1989 History of anxiety Hypertension PAD (peripheral artery disease) PFO (patent foramen ovale) Surgical History History of cholecystectomy lap [place]: 07/20/20: Grade view 3, MAC#3.0, ETT 7.0 at [facility] History of ERCP History of elbow surgery Left History of carpal tunnel release Right 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) History of lumbar surgery x2 History of cancer surgery LLE History of colonoscopy History of ankle surgery Left History of section X 1 History of tonsillectomy and adenoidectomy History of hip surgery x 2 - Left Family History Mother Anxiety Cardiac disorder Father Cardiac disorder Myocardial infarction Hypertension Grandmother (Maternal) Diabetes Other No family history of adverse response to anesthesia Social History Smoking Status: Never smoker Second Hand Exposure: No; Do You Dip or Chew Tobacco: No; Hx Alcohol Use: No Hx Substance Use: No Preferred Language: Slovak Communication Ability: Effective Packaging Manager Required: No Beliefs That Will Affect Care: Sikh Sikh Beliefs: Faith marital status: Current Living Situation: Spouse and Family Current Living Situation Comment: family helps Feels Safe at Home: Yes Assistive Devices: Bedside Commode, Glasses, Hearing Aid - Bilateral, Hospital Bed and Wheelchair Physical Exam Physical Exam: Patient is alert, cooperative, in no acute distress though she on multiple occasions refers to moderate pain that persists in her left leg stump. She has no pathologic adenopathy in the cervical, supraclavicular, axillary, or inguinal regions Her lungs are clear to percussion auscultation Cardiac rhythm is regular without pathological murmur The abdomen seems benign without mass or chemically Left lower extremity stump is consistent with an [id number]-[id number]-catt amputation. A number of dressings are applied distally and I did not remove them, other professionals have examined her during this hospitalization and describe the findings there in their notes. More proximally there does not seem to be specific suggestion of dramatic anatomic alteration of her remaining femur nor of a discrete subcutaneous/muscle mass though the tissues are certainly firm potentially consistent with postradiation changes. Neurologic exam seems nonfocal Results & Data Vital Signs (Past 12 Hours) Vital Signs Temp Pulse Pulse Resp BP Pulse Ox O2 Del Method 09/08/23 03:01 37.2 C 74 16 108/66 92 Room Air 09/07/23 23:04 37.1 C 75 14 122/53 L 90 Room Air 09/07/23 21:58 72 09/07/23 20:30 Room Air 09/07/23 19:37 36.6 C 73 16 103/66 90 Room Air Laboratory Results Laboratory Results - last 24 hr 09/07/23 09/08/23 06:41 05:12 Reticulocyte % (Auto) 2.6 H Reticulocyte # 0.09 Peripher Smr Path Cons Heparin Anti-Xa, Unfract 0.33 Pending Iron 15 L TIBC 191 L Unsaturated IBC 176 Transferrin % Sat 8 L Ferritin 150.4 Vitamin B12 545 Folate > 22.30 Diagnostic Findings 09/05/2023 BILATERAL LOWER EXTREMITY ARTERIAL DOPPLER ULTRASOUND CLINICAL HISTORY: Peripheral vascular disease, unspecified. Left below knee amputation. COMPARISON STUDY: CT of the abdomen and pelvis December 31, 2021. Left lower extremity arterial Doppler ultrasound January 23, 2017. Left lower extremity venous Doppler ultrasound February 01, 2017. TECHNIQUE: Ankle to brachial indices were obtained. Grayscale, color and duplex Doppler sonography of the arterial systems of both lower extreme is was then performed. FINDINGS: The right ankle to brachial index measured 0.75 when using the dorsalis pedis and 0.71 when using posterior tibial artery. Moderate to extensive atherosclerotic plaque within the right lower extremity is noted. Elevated peak systolic velocity of 272 cm/s within the right common femoral artery is noted. There is also an elevated peak systolic velocity of 214 cm/s within the distal right superficial femoral artery. There is biphasic flow within the right common femoral and superficial femoral artery. Right calf vessels are patent however, there is dampened, monophasic flow within the right calf vessels. There is occlusion of the left common femoral and superficial femoral arteries. Left below-knee amputation is noted. Note is made of deep venous thrombus within left common femoral and superficial femoral veins. This is age indeterminate. IMPRESSION: 1. Age indeterminate deep venous thrombus within the left common femoral and superficial femoral veins. This finding will be called/faxed to ordering provider at time of dictation. 2. Moderate to extensive atherosclerotic plaque within the right lower extremi ty. Findings suggestive of stenoses within the right common femoral and superficial femoral arteries. Patent right calf vessels however flow dampened and monophasic within these vessels. 3. 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 Status post left below-knee amputation. 4. Mildly diminished right ankle to brachial index of 0.75. Chest CTA 09/05/23 17:23 CT ANGIOGRAPHY OF THE CHEST, PULMONARY EMBOLUS PROTOCOL CLINICAL HISTORY: DVT. COMPARISON STUDY: Chest radiograph December 31, 2021. TECHNIQUE: Following IV administration of 114 mL of Optiray, helical axial images of the chest were obtained utilizing the pulmonary embolus protocol. Maximal intensity projections and sagittal and coronal reformats were viewed on an independent 3D workstation. IV contrast was administered without complication. Automated exposure control was utilized for the study. A dose lowering technique was utilized adhering to the principles of ALARA. CT DOSE: 770.54 mGy.cm FINDINGS: No pulmonary emboli are identified. There is no thoracic aortic dissection. Cardiomegaly is noted. There is moderate coronary artery calcifi cation. There is no pericardial effusion. No thoracic lymphadenopathy is present. Lungs are suboptimally assessed due to respiratory motion. Ground glass opacities within lungs are noted. Central airways are patent. Mild arterial wall thickening within the lower lobes is present. There is an 8 mm right upper lobe nodule on image 141 of 197. No acute fractures within the bony thorax are identified. Visualized portions of the upper abdomen are unremarkable. IMPRESSION: 1. No pulmonary emboli identified. 2. Cardiomegaly. Moderate coronary artery calcification. 3. 8 mm right upper lobe nodule. This is indeterminate. A follow-up chest CT in 6 months is recommended. 4. Ground glass opacities within lungs. Atelectasis is favored however mild pulmonary edema could appear similar. ACT 112: Negative or not required by law. Electronically signed by: Moe Mooney M.D. 09/05/2023 6:22 PM PG Care Time/CCT Total # of Minutes Spent Total Time Spent with Patient: Total time spent is greater than 50% in coordination of care (as documented) at patient's floor/unit and/or counseling patient: [place] [address] IN/OBS CONSULT LVL 4,60M Patient Type New History Expanded Problem Focused Exam Expanded Problem Focused Medical Decision Making High Complexity Diagnoses Anemia D64.9 DVT (deep venous thrombosis) I82.409 Pulmonary nodule R91.1 Renal infarct N28.0 PFO (patent foramen ovale) Q21.1 Liposarcoma of left lower extremity C49.22 Leg pain, left M79.298
[2023-09-08 07:27] LABS: ANTI-Xa, UFH(UnfractionatedHep 0.25 IU/ml (0.3-0.7)
[2023-09-08] MEDS: ASPIRIN 81 MG ECTAB PO SCH ×2 (08:21→20:16)
[2023-09-08] MEDS: oxyCODONE HCL 10 MG TABCR (OxyCONTIN) PO SCH (08:21)
[2023-09-08] MEDS: ADVANCED PROBIOTIC 1250 MG CAPSULE PO SCH (08:21)
[2023-09-08] MEDS: LOSARTAN POTASSIUM 25 MG TAB PO SCH (08:21)
[2023-09-08] MEDS: DOCUSATE SODIUM 100 MG CAP PO SCH ×2 (08:21→20:15)
[2023-09-08] MEDS: PREGABALIN 150 MG CAP PO SCH ×3 (08:21→20:15)
[2023-09-08] MEDS: IRON POLYSACCHARIDE COMPLEX 150 MG CAPSULE PO SCH (08:21)
[2023-09-08] MEDS: MULTIVITAMIN TAB PO SCH (08:21)
[2023-09-08] MEDS: CHOLECALCIFEROL 1,000 UNITS 25 MCG TAB PO SCH (08:21)
[2023-09-08] MEDS ORDERED: ENOXAPARIN 1 MG/KG SQ SCH (09:15)
[2023-09-08] MEDS ORDERED: IRON SUCROSE 300 MG in SODIUM CHLORIDE 0.9% 250 ML IV ONE (09:30)
[2023-09-08] MEDS: busPIRone 5 MG TAB PO SCH ×2 (11:06→20:16)
[2023-09-08] MEDS: ENOXAPARIN 80 MG/0.8 ML SYR SQ SCH ×2 (11:16→20:15)
--- NOTE | 2023-09-08 11:47 | Ultrasound Report ---
BILATERAL LOWER EXTREMITY VENOUS DOPPLER HISTORY: Acute pain and swelling of the right lower extremity . History of prior left common femoral thrombus EVALUATE FOR DVT COMPARISON STUDY: Arterial ultrasound 09/05/2023 FINDINGS: There is normal compressibility, flow, and augmentation within the right lower extremity de ep venous structures. Status post left [id number] amputation. Partially occlusive thrombus of the common femoral vein redemonstrated. There is suboptimal evaluation of the superficial femoral vein secondary to positioni ng of the patient. No additional DVT identified. IMPRESSION: 1. Partially occlusive thrombus within the left common femoral vein redemonstrated. The left superfic ial vein is suboptimally visualized on today's study. 2. No evidence of right lower extremity DVT. ACT 112: Negative or not required by law. Electronically signed by: Michael Kilpatrick M.D. 09/08/2023 11:44 AM
[2023-09-08 15:04] LABS: ANTI-Xa, UFH(UnfractionatedHep 0.36 IU/ml (0.3-0.7)
--- NOTE | 2023-09-08 15:14 | Hospitalist Progress Note ---
Date of Service September 08, 2023 Assessment & Plan (1) DVT (deep venous thrombosis): Plan: 73-year-old female with past med history significant for hyperlipidemia, superior mesenteric artery stenosis, hypertension, patent foramen ovale, peripheral vascular disease, rectocele, cystocele, degenerative arthritis, polyneuropathy, iron deficiency anemia, s/p colostomy, s/p left above-knee amputation and anxiety was sent in for left lower extremity arterial ultrasound for ongoing infection of left above-knee amputation site and found to have age- indeterminate left common femoral and superficial femoral veins DVT and also significant peripheral vascular disease. AGE-INDETERMINATE LEFT COMMON FEMORAL, SUPERFICIAL FEMORAL VEINS DVT Arterial Doppler: 1. Age indeterminate deep venous thrombus within the left common femoral and superficial femoral veins. This finding will be called/faxed to ordering provider at time of dictation. 2. Moderate to extensive atherosclerotic plaque within the right lower extremity. Findings suggestive of stenoses within the right common femoral and superficial femoral arteries. Patent right calf vessels however flow dampened and monophasic within these vessels. 3. 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 Status post left below-knee amputation. 4. Mildly diminished right ankle to brachial index of 0.75. Age indeterminant Started on IV heparin Patient reports her sister unfortunately of a pulmonary embolism Patient does not recall any history of PE or DVTs in the past Will consult hematology service for recommendation 09/07 Continue IV heparin for now, plan to transition to Lovenox +/- Coumadin tomorrow Awaiting final recommendations from Dr. Palafox May need to have hypercoagulable workup as an outpatient given family history: Sister of acute pulmonary embolism 09/08 Doppler ultrasound bilateral lower extremities: 1. Partially occlusive thrombus within the left common femoral vein redemonstrated. The left superficial vein is suboptimally visualized on today's study. 2. No evidence of right lower extremity DVT. Transition to Coumadin with Lovenox bridge Follow-up with Dr. Palafox in 1 week IRON DEFICIENCY ANEMIA Venofer ordered Will need close outpatient follow-up LEFT LOWER EXTREMITY PERIPHERAL VASCULAR DISEASE significant stenosis seen possibly chronicue Also patient having ongoing infection in the left above-knee amputation site vascular surgery input: No intervention at this point Continue aspirin Will need to increase Lipitor from 20 to 40 mg daily LEFT ABOVE-KNEE AMPUTATION SITE INFECTION s/p I&D on July 21 Currently following with wound care Recently started on antibiotic IV Dalvance Wound care consult Ortho while patient in the hospital: No acute intervention at this point No signs of worsening infection Continue daily wound care Next dose of IV Dalvance on September 14 S/P COLOSTOMY Patient had history of severe abdominal pain and abdominal protrusion life flighted to [facility] and had bowel resection Was told she does not have Crohn's HYPERTENSION On amlodipine and losartan BP on the lower side DC amlodipine CHRONIC PAIN S/p left left above-knee amputation 2016 Current home pain medications HYPERLIPIDEMIA On statin DVT prophylaxis Coumadin with Lovenox bridge Disposition Lives at home Anticipate discharge to home tomorrow Will need home health services including INR check at home Full code Admission and Anticipated Discharge Date Admission Date: September 05, 2023 Subjective Follow-up for left extremity DVT, etc. Seen resting in bed watching TV, comfortable States she feels okay overall Was having some pain in the leg a while ago, improving no chest pain, dyspnea, palpitations, dizziness No other new symptoms Review of Systems Review of Systems: all noted and negative except for above Physical Exam Physical Exam: General- oriented x 3, not in distress, speaks in sentences with no effort or accessory muscle use Eyes- anicteric Neck- no JVD Lungs- clear breath sounds bilaterally, no rales/wheezes Heart- normal rate, regular rhythm; no murmurs Abdomen- normal bowel sounds, nondistended, soft, nontender Extremities- no pretibial edema, no calf tenderness LLE: dressing in place Neuro- alert, oriented x 3; no gross focal neurologic deficits Skin- warm & dry Results & Data Results & Data Vital Signs (Past 12 Hours) Vital Signs Temp Pulse Pulse Resp BP Pulse Ox O2 Del Method 09/08/23 12:38 36.8 C 71 12 97/58 L 90 Room Air 09/08/23 11:30 36.9 C 62 12 99/63 L 90 Room Air 09/08/23 08:27 Room Air 09/08/23 08:04 37.0 C 72 10 L 120/70 90 Room Air 09/08/23 07:31 69 all noted and reviewed including below
[2023-09-08] MEDS: HYDROcodone/ACETAMINOPHEN 10/325 TAB PO PRN (15:41)
[2023-09-08] MEDS ORDERED: WARFARIN SOD 5 MG TAB PO SCH (16:00)
[2023-09-08] MEDS: SODIUM CHLORIDE 0.9% 1,000 ML IV SCH (16:16)
[2023-09-08] MEDS: AMITRIPTYLINE HCL 25 MG TAB PO SCH (20:16)
[2023-09-08] MEDS: tiZANidine HCL 4 MG TABLET PO PRN (20:16)
[2023-09-08] MEDS: ATORVASTATIN 20 MG TAB PO SCH (20:16)
[2023-09-09] MEDS: HYDROcodone/ACETAMINOPHEN 10/325 TAB PO PRN (04:05)
[2023-09-09] MEDS: SODIUM CHLORIDE 0.9% 1,000 ML IV SCH (04:05)
[2023-09-09] MEDS: PREGABALIN 150 MG CAP PO SCH (07:58)
[2023-09-09] MEDS: ADVANCED PROBIOTIC 1250 MG CAPSULE PO SCH (07:59)
[2023-09-09] MEDS: ASPIRIN 81 MG ECTAB PO SCH (07:59)
[2023-09-09] MEDS: busPIRone 5 MG TAB PO SCH (07:59)
[2023-09-09] MEDS: oxyCODONE HCL 10 MG TABCR (OxyCONTIN) PO SCH (07:59)
[2023-09-09] MEDS: CHOLECALCIFEROL 1,000 UNITS 25 MCG TAB PO SCH (07:59)
[2023-09-09] MEDS: MULTIVITAMIN TAB PO SCH (08:00)
[2023-09-09] MEDS: LOSARTAN POTASSIUM 25 MG TAB PO SCH (08:00)
[2023-09-09] MEDS: ENOXAPARIN 80 MG/0.8 ML SYR SQ SCH (08:00)
[2023-09-09 08:54] LABS: Basophils # (auto) 0.04 K/uL (0.00-0.20); Basophils % (auto) 0.7 %; Eosinophils # (auto) 0.52 K/uL (0.00-0.50); Eosinophils % (auto) 9.1 %; Hematocrit (blood only) 30.8 % (37.0-47.0); Hemoglobin 9.3 g/dl (12.0-16.0); Immature Granulocytes # (auto) 0.02 K/uL (0.01-0.20); Immature Granulocytes % (auto) 0.4 %; Lymphocytes # (auto) 1.72 K/uL (1.20-3.40); Lymphocytes % (auto) 30.1 %; Mean Corpuscular Hemoglobin 25.7 pg (25.0-34.0); Mean Corpuscular Hgb Conc 30.2 g/dL (32.0-36.0); Mean Corpuscular Volume 85.1 fL (80.0-100.0); Mean Platelet Volume 10.6 fL (9.4-12.4); Monocytes # (auto) 0.43 K/uL (0.11-0.59); Monocytes % (auto) 7.5 %; Neutrophils # (auto) 2.98 K/uL (1.40-6.50); Neutrophils % (auto) 52.2 %; Platelet Count 264 K/uL (130-400); RDW Coefficient of Variation 15.8 % (11.5-14.5); RDW Standard Deviation 48.6 fL (36.4-46.3); Red Blood Count 3.62 M/uL (4.20-5.40); White Blood Count 5.71 K/ul (4.8-10.8)
[2023-09-09 09:01] LABS: BUN Creatinine Ratio 25.4 (10-20); Creatinine Clr Calc Pharmacy 84.7 ml/min; Est GFR (African American) 106.1 ml/min; Est GFR (Non-African American) 91.6 ml/min; Potassium 4.3 mmol/L (3.5-5.1)
[2023-09-09] MEDS: DOCUSATE SODIUM 100 MG CAP PO SCH (11:14)
--- NOTE | 2023-09-09 11:28 | Hospitalist Progress Note ---
Date of Service September 09, 2023 Assessment & Plan (1) DVT (deep venous thrombosis): Plan: (1) DVT (deep venous thrombosis): Plan: 73-year-old female with past med history significant for hyperlipidemia, superior mesenteric artery stenosis, hypertension, patent foramen ovale, peripheral vascular disease, rectocele, cystocele, degenerative arthritis, polyneuropathy, iron deficiency anemia, s/p colostomy, s/p left above-knee am putation and anxiety was sent in for left lower extremity arterial ultrasound for ongoing infection of left above-knee amputation site and found to have age- indeterminate left common femoral and superficial femoral veins DVT and also significant peripheral vascular disease. AGE-INDETERMINATE LEFT COMMON FEMORAL, SUPERFICIAL FEMORAL VEINS DVT Arterial Doppler: 1. Age indeterminate deep venous thrombus within the left common femoral and superficial femoral veins. This finding will be called/faxed to ordering provider at time of dictation. 2. Moderate to extensive atherosclerotic plaque within the right lower extremity. Findings suggestive of stenoses within the right common femoral and superficial femoral arteries. Patent right calf vessels however flow dampened and monophasic within these vessels. 3. 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 Status post left below-knee amputation. 4. Mildly diminished right ankle to brachial index of 0.75. Age indeterminant Started on IV heparin Patient reports her sister unfortunately of a pulmonary embolism Patient does not recall any history of PE or DVTs in the past Will consult hematology service for recommendation 09/07 Continue IV heparin for now, plan to transition to Lovenox +/- Coumadin tomorrow Awaiting final recommendations from Dr. Palafox May need to have hypercoagulable workup as an outpatient given family history: Sister of acute pulmonary embolism 09/08 Doppler ultrasound bilateral lower extremities: 1. Partially occlusive thrombus within the left common femoral vein redemonstrated. The left superficial vein is suboptimally visualized on today's study. 2. No evidence of right lower extremity DVT. Transition to Coumadin with Lovenox bridge Follow-up with Dr. Palafox in 1 week 09/09 Tolerating Lovenox plus Coumadin INR 1.0 Discharge plan: Coumadin 3 mg daily with Lovenox bridge 70 mg twice daily until INR therapeutic Patient to be followed up by Coumadin clinic on Monday, will need INR check on Monday by home health service Will need to follow-up with cargo agent/oncologist Dr. Reji Palafox at [facility] outpatient clinic in 1 to 2 weeks. IRON DEFICIENCY ANEMIA Hemoglobin stable around 9 Iron level of 15 Venofer ordered Will need close outpatient follow-up LEFT LOWER EXTREMITY PERIPHERAL VASCULAR DISEASE significant stenosis seen possibly chronicue Also patient having ongoing infection in the left above-knee amputation site vascular surgery input: No intervention at this point Continue aspirin and Lipitor LEFT ABOVE-KNEE AMPUTATION SITE INFECTION s/p I&D on July 21 Currently following with wound care Recently started on antibiotic IV Dalvance Wound care consult Ortho while patient in the hospital: No acute intervention at this point No signs of worsening infection Continue daily wound care Next dose of IV Dalvance on September 14 S/P COLOSTOMY Patient had history of severe abdominal pain and abdominal protrusion life flighted to [facility] and had bowel resection Was told she does not have Crohn's HYPERTENSION On amlodipine and losartan Reduce amlodipine to 5 mg daily to prevent hypotension Follow-up as an outpatient CHRONIC PAIN S/p left left above-knee amputation 2016 Current home pain medications HYPERLIPIDEMIA On statin DVT prophylaxis Coumadin with Lovenox bridge Disposition Lives at home Discharge to home Will need home health services including INR check at home PCP in [address] Reji Palafox, [facility] in 1 to 2 weeks Admission and Anticipated Discharge Date Admission Date: September 05, 2023 Subjective Follow-up for DVT, etc. Seen resting in bedside chair, comfortable, good spirits States she feels fine overall No chest pain, shortness of breath, fevers or chills No other new symptoms States she is ready and ready to discharge today next Review of Systems Review of Systems: all noted and negative except for above Physical Exam Physical Exam: General- oriented x 3, not in distress, speaks in sentences with no effort or accessory muscle use Eyes- anicteric Neck- no JVD Lungs- clear breath sounds bilaterally, no rales/wheezes Heart- normal rate, regular rhythm; no murmurs Abdomen- normal bowel sounds, nondistended, soft, nontender Extremities- no pretibial edema, no calf tenderness Left lower extremity: Dressing in place Neuro- alert, oriented x 3; no gross focal neurologic deficits Skin- warm & dry Results & Data Results & Data Vital Signs (Past 12 Hours) Vital Signs Temp Pulse Pulse Resp BP Pulse Ox O2 Del Method 09/09/23 11:16 74 09/09/23 08:02 36.3 C L 71 16 137/75 96 Room Air 09/09/23 03:58 36.8 C 74 18 122/63 92 Room Air 09/09/23 02:00 O2 Del Method 09/09/23 11:16 09/09/23 08:02 09/09/23 03:58 09/09/23 02:00 Room Air all noted and reviewed including below
--- NOTE | 2023-09-09 11:47 | Discharge Summary ---
Discharge Summary Date of Service September 09, 2023 Notes For Next Care Provider Medication Changes From Visit New medications: Coumadin 3 mg p.o. daily Lovenox 70 mg SQ twice daily-bridging anticoagulation until INR is between 2-3 Reduce amlodipine from 10 mg to 5 mg daily. Admission HPI Per Admitting Provider 73-year-old female with past med history significant for hyperlipidemia, superior mesenteric artery stenosis, hypertension, patent foramen ovale, peripheral vascular disease, rectocele, cystocele, degenerative arthritis, polyneuropathy, iron deficiency anemia, s/p colostomy, s/p left above-knee amputation and anxiety was sent in for left lower extremity arterial ultrasound for ongoing infection of left above-knee amputation site and found to have age-indeterminate left common femoral and superficial femoral veins DVT and also significant peripheral vascular disease. Patient had I&D done of the left above knee amputation site infection on July 21 2023. Currently following with wound care. She is having left thigh pain for some time now. She is on antibiotic IV dalvance started on August 31 next dose is on September 14. Denies any fevers. Currently no headache. No runny nose. No cough. No chest pain or shortness of breath. No nausea. No abdominal pain. Normal bladder movements. Resting comfortably and hemodynamic stable. Patient is wheelchair- bound. Past medical history. As mentioned above Past surgical history. Left above-knee amputation. 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 Tonsillectomy and adenoidectomy Social history. . Quit smoking in 2013. Alcohol rare. No drug use. Family history. Father had DVT, heart disorder, hypertension. Mother had MO. Sister had PE. Admission Exam Per Admitting Provider General- Not in distress. Head- atraumatic Eyes- PERRL. ENT- oropharynx clear Neck- supple, no JVD. Lungs- clear to auscultation no wheezing or crackles. Heart- regular rhythm; no murmur, no gallop. Abdomen- normal bowel sounds, soft, nontender, no distension. Extremities-s/p left aka. amputation site mild drainage seen. Neuro- alert, oriented x 3; PERRL no facial palsy; no dysarthria obeys commands Skin- warm & dry Principal Dx & Hospital Course #1 = Principal Diagnosis (1) DVT (deep venous thrombosis): (1) DVT (deep venous thrombosis): Plan: 73-year-old female with past med history significant for hyperlipidemia, superior mesenteric artery stenosis, hypertension, patent foramen ovale, peripheral vascular disease, rectocele, cystocele, degenerative arthritis, polyneuropathy, iron deficiency anemia, s/p colostomy, s/p left above-knee amputation and anxiety was sent in for left lower extremity arterial ultrasound for ongoing infection of left above-knee amputation site and found to have age- indeterminate left common femoral and superficial femoral veins DVT and also significant peripheral vascular disease. AGE-INDETERMINATE LEFT COMMON FEMORAL, SUPERFICIAL FEMORAL VEINS DVT Arterial Doppler: 1. Age indeterminate deep venous thrombus within the left common femoral and superficial femoral veins. This finding will be called/faxed to ordering provider at time of dictation. 2. Moderate to extensive atherosclerotic plaque within the right lower extremity. Findings suggestive of stenoses within the right common femoral and superficial femoral arteries. Patent right calf vessels however flow dampened and monophasic within these vessels. 3. 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 Status post left below-knee amputation. 4. Mildly diminished right ankle to brachial index of 0.75. Age indeterminant Started on IV heparin Patient reports her sister unfortunately of a pulmonary embolism Patient does not recall any history of PE or DVTs Doppler ultrasound bilateral lower extremities: 1. Partially occlusive thrombus within the left common femoral vein redemonst rated. The left superficial vein is suboptimally visualized on today's study. 2. No evidence of right lower extremity DVT. Evaluated by plant electrician Dr. Reji Sanchez of [facility] Recommend to discharge on Coumadin with Lovenox bridge Transitioned to Coumadin with Lovenox bridge Follow-up with Dr. Sanchez in 1 week 09/09 Tolerating Lovenox plus Coumadin INR 1.0 Discharge plan: Coumadin 3 mg daily with Lovenox bridge 70 mg twice daily until INR therapeutic Patient to be followed up by Coumadin clinic on Monday, will need INR check on Monday by home health service Will need to follow-up with plant electrician/oncologist Dr. Reji Sanchez at [facility] outpatient clinic in 1 to 2 weeks. IRON DEFICIENCY ANEMIA Hemoglobin stable around 9 Iron level of 15 Venofer ordered Will need close outpatient follow-up PULMONARY NODULE CT chest: 8 mm right upper lobe nodule. This is indeterminate. A follow-up chest CT in 6 months is recommended. Please refer to full report in the Ordered Studies section Further work up, management, and ff up as outpatient LEFT LOWER EXTREMITY PERIPHERAL VASCULAR DISEASE significant stenosis seen possibly chronic Also patient having ongoing infection in the left above-knee amputation site vascular surgery input: No intervention at this point Continue aspirin and Lipitor LEFT ABOVE-KNEE AMPUTATION SITE INFECTION s/p I&D on July 21 Currently following with wound care Recently started on antibiotic IV Dalvance Wound care consult Ortho while patient in the hospital: No acute intervention at this point No signs of worsening infection Continue daily wound care Next dose of IV Dalvance on September 14 S/P COLOSTOMY Patient had history of severe abdominal pain and abdominal protrusion life flighted to [facility] and had bowel resection Was told she does not have Crohn's HYPERTENSION On amlodipine and losartan Reduce amlodipine to 5 mg daily to prevent hypotension Follow-up as an outpatient CHRONIC PAIN S/p left left above-knee amputation 2016 Current home pain medications HYPERLIPIDEMIA On statin DVT prophylaxis Coumadin with Lovenox bridge Disposition Lives at home Discharge to home Will need home health services including INR check at home PCP in [address] [address] Reji [facility] Discharge Exam General- oriented x 3, not in distress, speaks in sentences with no effort or accessory muscle use Eyes- anicteric Neck- no JVD Lungs- clear breath sounds bilaterally, no rales/wheezes Heart- normal rate, regular rhythm; no murmurs Abdomen- normal bowel sounds, nondistended, soft, nontender Extremities- no pretibial edema, no calf tenderness Left lower extremity: Dressing in place Neuro- alert, oriented x 3; no gross focal neurologic deficits Skin- warm & dry Updated Medication List Medication Instructions Recorded Confirmed Type atorvastatin 20 mg tablet 20 mg PO HS 05/21/19 09/05/23 History aspirin 81 mg chewable tablet 81 mg PO BID 06/18/20 09/05/23 History multivitamin 1 tab PO QAM 06/18/20 09/05/23 History buspirone 10 mg tablet 10 mg PO BID 06/19/20 09/05/23 History tizanidine 4 mg tablet (Zanaflex) 2 mg PO HS PRN Muscle Spasm 06/19/20 09/05/23 History acetaminophen 650 mg 650 mg PO Q8H PRN Pain 12/31/21 09/05/23 History tablet,extended release (Tylenol 8 Hour) amitriptyline 25 mg tablet 75 mg PO HS 12/31/21 09/05/23 History docusate sodium 100 mg capsule 100 mg PO BID 12/31/21 09/05/23 History (Colace) omega 1-sas-tks-fish oil 1,000 mg See Rx Instructions .Route .COMPLEX 12/31/21 09/05/23 History (120 mg-180 mg) capsule (Fish Oil) polysaccharide iron complex 150 mg 150 mg PO 3XWK 12/31/21 09/05/23 History iron capsule alendronate 70 mg tablet 70 mg PO WK 07/21/23 09/05/23 History amlodipine 10 mg tablet 10 mg PO QAM 07/21/23 09/05/23 History cholecalciferol (vitamin D3) 25 1,000 unit PO DAILY 07/21/23 09/05/23 History mcg (1,000 unit) tablet (Vitamin D3) hydrocodone 10 mg-acetaminophen 1 tab PO BID PRN .severe pain 07/21/23 09/05/23 History 325 mg tablet losartan 25 mg tablet 25 mg PO QAM 07/21/23 09/05/23 History oxycodone 10 mg tablet,crush 10 mg PO QAM 07/21/23 09/05/23 History resistant,extended release 12 hr (OxyContin) pregabalin 150 mg capsule 150 mg PO TID 07/21/23 09/05/23 History lactobacillus combination no.4 3 3,000 mmu cells PO DAILY #10 caps 07/26/23 09/05/23 Rx billion cell capsule (Probiotic) enoxaparin 80 mg/0.8 mL 70 mg (0.7 mL) subcut BID 14 days 09/09/23 Rx subcutaneous syringe (Lovenox) #19.6 mL warfarin 3 mg tablet 3 mg PO DAILY #30 tabs 09/09/23 Rx Hospital Stay Data Consultations 09/05/23 19:28 ED Decision to Admit Stat 09/06/23 08:00 Consult Orthopedic Surgery Routine Consult Vascular Surgery Routine 09/06/23 17:34 Consult Hematology Routine Diagnostic Imagining Performed Laboratory Results WBC 5.71 K/ul (4.8-10.8) 09/09/23 08: RBC 3.62 M/uL (4.20-5.40) L 09/09/23 08:23 Hgb 9.3 g/dl (12.0-16.0) L 09/09/23 08:23 Hct 30.8 % (37.0-47.0) L 09/09/23 08: MCV 85.1 fL (80.0-100.0) 09/09/23 08: MCH 25.7 pg (25.0-34.0) 09/09/23 08: MCHC 30.2 g/dL (32.0-36.0) L 09/09/23 08: RDW Std Deviation 48.6 fL (36.4-46.3) H 09/09/23 08: RDW Coeff of Leslie 15.8 % (11.5-14.5) H 09/09/23 08: Plt Count 264 K/uL (130-400) 09/09/23 08: MPV 10.6 fL (9.4-12.4) 09/09/23 08: Immature Gran % (Auto) 0.4 % 09/09/23 08:23 Neut % (Auto) 52.2 % 09/09/23 08:23 Lymph % (Auto) 30.1 % 09/09/23 08:23 [place] % (Auto) 7.5 % 09/09/23 08:23 Eos % (Auto) 9.1 % 09/09/23 08:23 Baso % (Auto) 0.7 % 09/09/23 08:23 Reticulocyte % (Auto) 2.6 % (0.5-2.0) H 09/07/23 06:41 Neut # (Auto) 2.98 K/uL (1.40-6.50) 09/09/23 08:23 Lymph # (Auto) 1.72 K/uL (1.20-3.40) 09/09/23 08:23 [place] # (Auto) 0.43 K/uL (0.11-0.59) 09/09/23 08:23 Eos # (Auto) 0.52 K/uL (0.00-0.50) H 09/09/23 08:23 Baso # (Auto) 0.04 K/uL (0.00-0.20) 09/09/23 08:23 Reticulocyte # 0.09 10^6/uL (0.02-0.10) 09/07/23 06:41 Immature Gran # (Auto) 0.02 K/uL (0.01-0.20) 09/09/23 08:23 Peripher Smr Path Cons 09/07/23 06:41 PT 11.0 Seconds (9.0-12.0) 09/09/23 04:38 INR 1.0 (0.9-1.1) 09/09/23 04:38 APTT 28 Seconds (21-31) 09/05/23 16:19 PTT Ratio 1.0 09/05/23 16:19 Heparin Anti-Xa, Unfract 0.36 IU/ml (0.3-0.7) 09/08/23 14:26 Sodium 138 mmol/L (136-145) 09/09/23 08:24 Potassium 4.3 mmol/L (3.5-5.1) 09/09/23 08:24 Chloride 105 mmol/L (98-107) 09/09/23 08:24 Carbon Dioxide 27 mmol/L (21-32) 09/09/23 08:24 Anion Gap 6 (3-11) 09/09/23 08:24 BUN 15 mg/dl (6-23) 09/09/23 08:24 Creatinine 0.59 mg/dl (0.6-1.2) L 09/09/23 08:24 Est Cr Clr Drug Dosing 84.7 ml/min 09/09/23 08:24 Est GFR ( Amer) 106.1 ml/min 09/09/23 08:24 Est GFR (Non-Af Amer) 91.6 ml/min 09/09/23 08:24 BUN/Creatinine Ratio 25.4 (10-20) H 09/09/23 08:24 Glucose 94 mg/dl (70-99(Fasting)) 09/09/23 08:24 Calcium 9.0 mg/dl (8.6-10.3) 09/09/23 08:24 Magnesium 1.6 mg/dl (1.7-2.4) L 09/06/23 02:02 Iron 15 mcg/dl (35-150) L 09/07/23 06:41 TIBC 191 mcg/dl (250-450) L 09/07/23 06:41 Unsaturated IBC 176 mcg/dl (155-355) 09/07/23 06:41 Transferrin % Sat 8 % (15-50) L 09/07/23 06:41 Ferritin 150.4 ng/ml (8-388) 09/07/23 06:41 Total Bilirubin 0.3 mg/dl (0.2-1.0) 09/05/23 16:19 AST 22 U/L (13-39) 09/05/23 16:19 ALT 12 U/L (7-52) 09/05/23 16:19 Alkaline Phosphatase 352 U/L (34-104) H 09/05/23 16:19 Troponin I High Sens 8.0 pg/ml (0-14) 09/05/23 16:19 Total Protein 8.0 gm/dl (6.0-8.3) 09/05/23 16:19 Albumin 4.0 gm/dl (3.4-5.0) 09/05/23 16:19 Globulin 4.0 gm/dl (2.5-4.0) 09/05/23 16:19 Albumin/Globulin Ratio 1.0 (0.9-2) 09/05/23 16:19 Vitamin B12 545 pg/ml (180-914) 09/07/23 06:41 Folate > 22.30 ng/ml (>5.38) 09/07/23 06:41 Impressions Chest CTA 09/05/23 17:23 CT ANGIOGRAPHY OF THE CHEST, PULMONARY EMBOLUS PROTOCOL CLINICAL HISTORY: DVT. COMPARISON STUDY: Chest radiograph December 31, 2021. TECHNIQUE: Following IV administration of 114 mL of Optiray, helical axial images of the chest were obtained utilizing the pulmonary embolus protocol. Maximal intensity projections and sagittal and coronal reformats were viewed on an independent 3D workstation. IV contrast was administered without complication. Automated exposure control was utilized for the study. A dose lowering technique was utilized adhering to the principles of ALARA. CT DOSE: 770.54 mGy.cm FINDINGS: No pulmonary emboli are identified. There is no thoracic aortic dissection. Cardiomegaly is noted. There is moderate coronary artery calcification. There is no pericardial effusion. No thoracic lymphadenopathy is present. Lungs are suboptimally assessed due to respiratory motion. Ground glass opacities within lungs are noted. Central airways are patent. Mild arterial wall thickening within the lower lobes is present. There is an 8 mm right upper lobe nodule on image 141 of 197. No acute fractures within the bony thorax are identified. Visualized portions of the upper abdomen are unremarkable. IMPRESSION: 1. No pulmonary emboli identified. 2. Cardiomegaly. Moderate coronary artery calcification. 3. 8 mm right upper lobe nodule. This is indeterminate. A follow-up chest CT in 6 months is recommended. 4. Ground glass opacities within lungs. Atelectasis is favored however mild pulmonary edema could appear similar. ACT 112: Negative or not required by law. Electronically signed by: Moe Mooney M.D. 09/05/2023 6:22 PM Venous Doppler Study 09/08/23 10:00 BILATERAL LOWER EXTREMITY VENOUS DOPPLER HISTORY: Acute pain and swelling of the right lower extremity . History of prior left common femoral thrombus EVALUATE FOR DVT COMPARISON STUDY: Arterial ultrasound 09/05/2023 FINDINGS: There is normal compressibility, flow, and augmentation within the right lower extremity deep venous structures. Status post left [id number] amputation. Partially occlusive thrombus of the common femoral vein redemonstrated. There is suboptimal evaluation of the superficial femoral vein secondary to positioning of the patient. No additional DVT identified. IMPRESSION: 1. Partially occlusive thrombus within the left common femoral vein redemonstrated. The left superficial vein is suboptimally visualized on today's study. 2. No evidence of right lower extremity DVT. ACT 112: Negative or not required by law. Electronically signed by: Michael Kilpatrick M.D. 09/08/2023 11:44 AM 09/05/23 17:23 CT angio chest PE protocol Stat 09/08/23 10:00 US venous doppler LE BI Routine Pending Results Patient Have Any Pending Studies at Discharge: Yes Discharge Instructions Given to Patient (Per Discharging Provider) PLEASE REFER TO YOUR NEW MEDICATION LIST AND FOLLOW INSTRUCTIONS CAREFULLY. YOUR NEW MEDICATIONS INCLUDE: Lovenox injection-blood thinner; to be used until INR is between 2-3 Coumadin-blood thinner Coumadin clinic will be contacting you on Monday for further instructions regarding Coumadin and Lovenox dosing. INR checked by home health services on Nick. Decreased amlodipine to 5 mg daily from 10 mg daily. PLEASE CALL YOUR PRIMARY CARE PHYSICIAN OR RETURN TO THE ER IF WITH WORSENING OF SYMPTOMS, INCLUDING Worsening leg pain, shortness of breath, chest pain, fevers or chills, etc. FOLLOW UP WITH PRIMARY CARE PHYSICIAN OUTLINED ABOVE. FOLLOW-UP WITH [facility] ON MONDAY, THE CLINIC WILL BE CALLING YOU FOR ADVICE. FOLLOW-UP WITH [facility] [employer] MACHINE DR. REJI ASNCHEZ OF [facility] IN 1 TO 2 WEEKS. CONTACT INFORMATION OUTLINED ABOVE. Total Time Total Time Spent Total Time Spent (In Minutes): >30 minutes
== END 2023-09-09 14:46 | disposition home health service (06) | DRG 300 ==
LOC: ED 15:28 → EDINP 21:25 → 2W 09-06 01:29

== ENCOUNTER 2024-01-01 13:44 | Inpatient (IN) ==
--- NOTE | 2024-01-01 14:11 | Emergency Department Note ---
Impression & Plan Acute UTI ADMIT ED Provider Note HPI: History obtained from patient. 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 Patient's son states that the patient has been home from rehab for the past several weeks after her surgery for "an infection drainage", this was performed in [place], he states that the patient has now been home for several weeks and has been declining from the standpoint of her generalized weakness. Last night he states the patient was able to have a conversation and since she woke up this morning she is seem altered and confused and cannot have a conversation with anyone. Patient's son states that they can no longer handle taking care of her at home and he would like her to be admitted for inpatient rehab. On my assessment here in the ED the patient is lethargic appearing, she is mildly tachypneic but stable on 2 L nasal cannula oxygen. Patient does respond to verbal stimuli. She does not have any obvious focal deficits on my initial assessment. Patient's blood pressure is stable on arrival. ROS: - Per HPI Differential Diagnosis: Stroke, intracranial hemorrhage, sepsis secondary to urinary tract infection, pneumonia, COVID-19 infection, influenza A infection, amongst other potential pathologies. *Outpatient medications and allergy history reviewed. PE: General: Lethargic appearing, responds to verbal stimuli HEENT: Normocephalic, trachea midline Eyes: Extraocular eye movement is intact, no scleral erythema Pulmonary: Clear to auscultation bilaterally, no wheezing Cardio: Regular rate and rhythm GI: Abdomen is soft to palpation, there is no distention : No suprapubic tenderness, Kevin catheter in place MSK: Status post left-sided AKA, no evidence of trauma or malformation of the extremities, no edema Skin: Excoriated superficial appearing wound to the left groin that appears subacute in nature, there is no purulent drainage, there is no crepitus to palpation of the surrounding soft tissues, no surrounding erythema, otherwise no evidence of rash Neuro: Lethargic appearing but responds to verbal stimuli, no focal deficits Psychiatric: N/A INDEPENDENT INTERPRETATIONS: traffic monitor specialist: (As interpreted by myself): - An order was placed for continuous cardiac monitoring - Patient was noted to be in sinus rhythm with a rate of 95 EKG: (As interpreted by myself): Rate: 111 Rhythm: Sinus tachycardia Intervals: Within normal limits ST changes: No ST elevation Time: 1357 Chest x-ray: (As interpreted by myself): No focal infiltrate Interventions provided in ED: -IV fluid bolus, IV ceftriaxone, IV vancomycin Medical Decision Making: IV was established and lab work obtained, patient was placed on nuclear monitoring technician. Lab work shows a leukocytosis at 11.78, hemoglobin is stable at 10.6, platelet count is slightly elevated at 522, INR is noted to be therapeutic at 2.9 (patient has history of DVT). Lab work otherwise shows hyponatremia 130, mild anion gap elevation at 15, no evidence of acute kidney injury, procalcitonin is noted to be elevated at 1.09. Lactic acid is normal at 1.5. Urinalysis obtained from Kevin catheter shows evidence of infection, 1+ ketones, 3+ blood, urine nitrite is positive as well as urine leukocyte esterase. There is significant pyuria as well. Will send for culture. CT imaging of the head does not show any evidence of any acute process. On my reassessment the patient remains hemodynamically stable but still remains lethargic appearing. Patient was treated with IV Rocephin and IV vancomycin over concern for urinary tract infection as a likely source of her altered mentation. Given the patient's multiple comorbidities, urinary tract infection, and altered mental status, she will be admitted to the hospitalist service. Case was discussed with the on-call [facility] hospitalist midlevel, Adriana Gallagher PA-C, and the patient was admitted to the service of Dr. Stevenson in stable condition. Of note the patient's blood pressure remained stable, she was without any significant tachycardia, patient was therefore only given 1.5 L of IV fluids secondary to hemodynamic stability and concern for potential fluid overload. Patient's son is in agreement for the patient to be admitted on my reassessment. Patient was admitted in stable condition. Consultants/Discussions held with other healthcare providers: -Hospitalist, Dr. Stevenson Disposition discussion held by myself with: -Patient's Son at bedside Diagnosis: 1. Encephalopathy, acute 2. Urinary tract infection, acute 3. Elevated procalcitonin 4. Leukocytosis, acute 5. Anemia, chronic 6. Ketonuria, acute 7. Superficial ulcerations/wound to the left groin, subacute 8. Hyponatremia, acute Disposition: Admission Nando Krueger DO Emergency Medicine Past Med/Surg History Medical History (Updated 01/01/24 @ 20:15 by Nando Krueger DO) Anemia Superior mesenteric artery stenosis Weakness Near syncope Pre-syncope Osteoarthritis Presence of pessary Hearing deficit BL FABIAN Hyperlipidemia Bile duct stone Hx of sarcoma of bone LLE; h/o surgery, radiation treatment 1989 History of anxiety Hypertension PAD (peripheral artery disease) PFO (patent foramen ovale) Surgical History History of cholecystectomy lap [place]: 07/20/20: Grade view 3, MAC#3.0, ETT 7.0 at [facility] History of ERCP History of elbow surgery Left History of carpal tunnel release Right 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) History of lumbar surgery x2 History of cancer surgery LLE History of colonoscopy History of ankle surgery Left History of section X 1 History of tonsillectomy and adenoidectomy History of hip surgery x 2 - Left Family History Mother Anxiety Cardiac disorder Father Cardiac disorder Myocardial infarction Hypertension Grandmother (Maternal) Diabetes Other No family history of adverse response to anesthesia Social History Smoking Status: Never smoker Second Hand Exposure: No; Do You Dip or Chew Tobacco: No; Hx Alcohol Use: No Hx Substance Use: No Preferred Language: Sami Communication Ability: Effective Event Marketing Manager Required: No Beliefs That Will Affect Care: None marital status: Current Living Situation: Family Current Living Situation Comment: Erik () and Taya (daughter) Other Information That Helps Us Care for You: No Feels Safe at Home: Yes Safety Concerns: Feels Safe At This Time Assistive Devices: Bedside Commode, Glasses, Hearing Aid - Bilateral, Hospital Bed and Wheelchair Allergies Allergies Allergy/AdvReac Type Severity Reaction Status Date / Time vancomycin AdvReac Severe WORSENING Verified 10/11/23 13:05 RENAL FUNCTION cetirizine AdvReac Intermediate BOWEL Verified 10/11/23 13:05 CRAMPS gabapentin [From Neurontin] AdvReac Unknown DID NOT Verified 10/11/23 13:05 WORK FOR PAIN Home Meds Home Medications Medication Instructions Recorded Confirmed atorvastatin 20 mg tablet 20 mg PO HS 05/21/19 01/01/24 buspirone 10 mg tablet 10 mg PO BID 06/19/20 01/01/24 tizanidine 4 mg tablet (Zanaflex) 2 - 4 mg PO HS PRN Muscle Spasm 06/19/20 01/01/24 docusate sodium 100 mg capsule 100 mg PO BID 12/31/21 01/01/24 (Colace) alendronate 70 mg tablet 70 mg PO WK 07/21/23 01/01/24 losartan 25 mg tablet 25 mg PO QAM 07/21/23 01/01/24 pregabalin 150 mg capsule 150 mg PO TID 07/21/23 01/01/24 amitriptyline 50 mg tablet 50 mg PO HS 01/01/24 01/01/24 amlodipine 10 mg tablet 10 mg PO QAM 01/01/24 01/01/24 fentanyl 50 mcg/hr transdermal 1 patch transdermal Q72H 01/01/24 01/01/24 patch hydrocodone 5 mg-acetaminophen 325 1 tab PO BID PRN Mild Pain (Scale 01/01/24 01/01/24 mg tablet Score 1-4) morphine 10 mg/5 mL oral solution See Rx Instructions .Route .COMPLEX 01/01/24 01/01/24 naloxone 4 mg/actuation nasal spray 1 spray intranasal UD PRN - 01/01/24 01/01/24 warfarin 1 mg tablet 1 mg PO DAILY 01/01/24 01/01/24 Results & Data (ED) Vital Signs Vital Signs - 24 hr 01/01/24 13:24 01/01/24 13:24 01/01/24 13:24 Temperature 36.7 C Temperature Source Axillary Pulse Rate 113 H Pulse Rate [Apical] Respiratory Rate 28 H Blood Pressure 154/95 H Blood Pressure [Right Arm] Blood Pressure Mean 114 Blood Pressure Mean [Right Arm] Pulse Oximetry 98 98 98 Oxygen Delivery Method Room Air Room Air Room Air Oxygen Flow Rate Sepsis Recent Fever Within 48 Hours No Sepsis New/Unexplained Change in Mental Status N/A Sepsis Action Taken by Nursing Physician Notified 01/01/24 13:45 01/01/24 13:46 01/01/24 14:00 Temperature Temperature Source Pulse Rate Pulse Rate [Apical] 113 H 108 H Respiratory Rate 20 20 Blood Pressure Blood Pressure [Right Arm] 154/95 H 155/101 H Blood Pressure Mean Blood Pressure Mean [Right Arm] 114 119 Pulse Oximetry 98 98 98 Oxygen Delivery Method Nasal Cannula Room Air Nasal Cannula Oxygen Flow Rate 2 2 Sepsis Recent Fever Within 48 Hours Sepsis New/Unexplained Change in Mental Status Sepsis Action Taken by Nursing 01/01/24 14:03 01/01/24 14:08 01/01/24 14:15 Temperature Temperature Source Pulse Rate 111 H Pulse Rate [Apical] 107 H Respiratory Rate 20 Blood Pressure Blood Pressure [Right Arm] 159/99 H Blood Pressure Mean Blood Pressure Mean [Right Arm] 119 Pulse Oximetry 98 98 Oxygen Delivery Method Room Air Nasal Cannula Oxygen Flow Rate 2 Sepsis Recent Fever Within 48 Hours Sepsis New/Unexplained Change in Mental Status Sepsis Action Taken by Nursing 01/01/24 14:30 01/01/24 14:45 01/01/24 15:00 Temperature Temperature Source Pulse Rate Pulse Rate [Apical] 109 H 106 H 105 H Respiratory Rate 18 18 18 Blood Pressure Blood Pressure [Right Arm] 159/99 H 158/98 H 155/94 H Blood Pressure Mean Blood Pressure Mean [Right Arm] 119 118 114 Pulse Oximetry 98 98 98 Oxygen Delivery Method Nasal Cannula Nasal Cannula Nasal Cannula Oxygen Flow Rate 2 2 2 Sepsis Recent Fever Within 48 Hours Sepsis New/Unexplained Change in Mental Status Sepsis Action Taken by Nursing 01/01/24 15:15 01/01/24 15:45 Temperature Temperature Source Pulse Rate Pulse Rate [Apical] 104 H 102 H Respiratory Rate 18 19 Blood Pressure Blood Pressure [Right Arm] 142/100 H 151/93 H Blood Pressure Mean Blood Pressure Mean [Right Arm] 114 112 Pulse Oximetry 94 96 Oxygen Delivery Method Room Air Room Air Oxygen Flow Rate Sepsis Recent Fever Within 48 Hours Sepsis New/Unexplained Change in Mental Status Sepsis Action Taken by Nursing Laboratory Data 01/01/24 13:59 01/01/24 13:59 Lab Results 01/01/24 01/01/24 Range/Units 13:54 13:59 WBC 11.78 H (4.8-10.8) K/ul RBC 4.57 (4.20-5.40) M/uL Hgb 10.6 L (12.0-16.0) g/dl Hct 34.5 L (37.0-47.0) % MCV 75.5 L (80.0-100.0) fL MCH 23.2 L (25.0-34.0) pg MCHC 30.7 L (32.0-36.0) g/dL RDW Std Deviation 47.6 H (36.4-46.3) fL RDW Coeff of Leslie 17.4 H (11.5-14.5) % Plt Count 522 H (130-400) K/uL MPV 9.2 L (9.4-12.4) fL Immature Gran % (Auto) 0.8 % Neut % (Auto) 89.3 % Lymph % (Auto) 4.8 % [place] % (Auto) 4.8 % Eos % (Auto) 0.1 % Baso % (Auto) 0.2 % Neut # (Auto) 10.51 H (1.40-6.50) K/uL Lymph # (Auto) 0.57 L (1.20-3.40) K/uL [place] # (Auto) 0.57 (0.11-0.59) K/uL Eos # (Auto) 0.01 (0.00-0.50) K/uL Baso # (Auto) 0.02 (0.00-0.20) K/uL Immature Gran # (Auto) 0.10 (0.01-0.20) K/uL PT 29.6 H (9.0-12.0) Seconds INR 2.9 H (0.9-1.1) Sodium 130 L (136-145) mmol/L Potassium 3.4 L (3.5-5.1) mmol/L Chloride 91 L (98-107) mmol/L Carbon Dioxide 24 (21-32) mmol/L Anion Gap 15 H (3-11) BUN 16 (6-23) mg/dl Creatinine 0.52 L (0.6-1.2) mg/dl Est Cr Clr Drug Dosing 93.2 ml/min Est GFR ( Amer) 110.6 ml/min Est GFR (Non-Af Amer) 95.5 ml/min BUN/Creatinine Ratio 30.8 H (10-20) Glucose 125 H (70-99(Fasting)) mg/dl Lactate 1.5 (0.4-2.0) mmol/L Calcium 8.6 (8.6-10.3) mg/dl Magnesium 1.7 (1.7-2.4) mg/dl Total Bilirubin 0.4 (0.2-1.0) mg/dl Direct Bilirubin 0.1 (0-0.2) mg/dl AST 26 (13-39) U/L ALT 14 (7-52) U/L Alkaline Phosphatase 297 H (34-104) U/L Troponin I High Sens 12.1 (0-14) pg/ml Total Protein 7.3 (6.0-8.3) gm/dl Albumin 3.1 L (3.4-5.0) gm/dl Procalcitonin 1.09 H (0-0.5) ng/ml Urine Color Brittnee Urine Appearance Cloudy A (Clear) Urine pH 7.5 (4.5-7.5) Ur Specific [place] 1.025 (1.000-1.030) Urine Protein 3+ H (Negative) Urine Glucose (UA) Negative (Negative) Urine Ketones 1+ H (Negative) Urine Blood 3+ H (Negative) Urine Nitrite Positive A (Negative) Urine Bilirubin Negative (Negative) Urine Urobilinogen Negative (Negative) Ur Leukocyte Esterase 3+ H (Negative) Urine RBC 6-10 H (0-2) /hpf Urine WBC >50 H (0-5) /hpf Ur Epithelial Cells 3-5 H (0-2) /hpf Urine Bacteria 1+ H (None Seen) Administered Medications Acetaminophen (Ofirmev) 1,000 mg in 100 mls @ 400 mls/hr IV Q8H ENRIQUE Stop: 01/04/24 16:59 Last Infusion: 01/01/24 17:36 Dose: Infused Documented By: Admin: 01/01/24 17:16 Dose: 400 mls/hr Documented By: DEEPIKA Discontinued Medications Ceftriaxone Sodium (Ceftriaxone Sodium 2000mg/50ml D5w) Confirm Administered Dose 2,000 mg IV .STK-MED ONE Stop: 01/01/24 16:08 Last Admin: 01/01/24 16:12 Dose: Not Given Documented By: DEEPIKA Sodium Chloride (Nss) 500 mls @ 999 mls/hr IV .Q31M ONE Stop: 01/01/24 15:26 Last Infusion: 01/01/24 16:11 Dose: Infused Documented By: Admin: 01/01/24 15:13 Dose: 999 mls/hr Documented By: DEEPIKA Ceftriaxone Sodium 2,000 mg/ (Dextrose) 50 mls @ 100 mls/hr IV NOW STA; Protocol Stop: 01/01/24 15:54 Last Infusion: 01/01/24 16:50 Dose: Infused Documented By: Admin: 01/01/24 16:13 Dose: 100 mls/hr Documented By: DEEPIKA Vancomycin HCl 1,500 mg/ (Sodium Chloride) 530 mls @ 200 mls/hr IV NOW ONE Stop: 01/01/24 18:04 Last Infusion: 01/01/24 19:35 Dose: Infused Documented By: Admin: 01/01/24 16:50 Dose: 200 mls/hr Documented By: DEEPIKA Sodium Chloride (Nss) 1,000 mls @ 999 mls/hr IV .Q1H1M ONE Stop: 01/01/24 16:48 Last Infusion: 01/01/24 17:58 Dose: Infused Documented By: Admin: 01/01/24 16:13 Dose: 999 mls/hr Documented By: DEEPIKA Ioversol (Optiray 320 100ml) 92 ml IV ONCE ONE Stop: 01/01/24 18:22 Last Admin: 01/01/24 18:22 Dose: 92 ml Documented By: PLW Imaging Data Radiologist's Impression: Chest X-Ray 01/01/24 14:08 XR chest 1V portable HISTORY: 73 years-old Female Sepsis COMPARISON: 01/10/2022 TECHNIQUE: AP view of the chest FINDINGS: Cardiomediastinal and hilar silhouettes are within normal limits. No pneumothorax, pleural effusion or airspace consolidation. No overt pulmonary edema. Cholecystectomy. Lumbar spinal fusion hardware. Degenerative changes of the shoulders and spine. IMPRESSION: No acute process. ACT 112: Negative or not required by law. The above report was generated using voice recognition software. It may contain grammatical, syntax or spelling errors. Electronically signed by: Michael Kilpatrick M.D. 01/01/2024 3:[address] 01/01/24 14:[address] DOSE: 625.8 mGy.cm HISTORY: Altered mental status. TECHNIQUE: Multiaxial CT images of the head were performed without the use of intravenous contrast. Automated exposure control was utilized for this study. A dose lowering technique was utilized adhering to the principles of ALARA. Comparison: None. Findings: The paranasal sinuses and mastoid air cells are clear. The calvarium and skull base are intact. There is no mass, hematoma, midline shift, acute infarct. White matter hypodensity is nonspecific but suggestive of microvascular ischemic change. The ventricles and sulci demonstrate mild age-related involutional changes. Impression: No acute intracranial abnormality. ACT 112: Negative or not required by law. Electronically signed by: Akash Gross M.D. 01/01/2024 2:57 PM Discharge Plan Visit Data Chief Complaint: Weakness Stated Complaint: WEAKNESS, LETHARGIC, AMS, ED Provider: Nando Krueger Discharge Problem: Acute UTI Patient Disposition: Admitted As Inpatient Discharge Instructions Interventions: ED Discharge Assessment Last Done: 01/01/24 16:25
[2024-01-01 14:42] LABS: Basophils # (auto) 0.02 K/uL (0.00-0.20); Basophils % (auto) 0.2 %; Eosinophils # (auto) 0.01 K/uL (0.00-0.50); Eosinophils % (auto) 0.1 %; Hematocrit (blood only) 34.5 % (37.0-47.0); Hemoglobin 10.6 g/dl (12.0-16.0); Immature Granulocytes % (auto) 0.8 %; Lymphocytes # (auto) 0.57 K/uL (1.20-3.40); Lymphocytes % (auto) 4.8 %; Mean Corpuscular Hemoglobin 23.2 pg (25.0-34.0); Mean Corpuscular Hgb Conc 30.7 g/dL (32.0-36.0); Mean Corpuscular Volume 75.5 fL (80.0-100.0); Mean Platelet Volume 9.2 fL (9.4-12.4); Monocytes # (auto) 0.57 K/uL (0.11-0.59); Monocytes % (auto) 4.8 %; Neutrophils # (auto) 10.51 K/uL (1.40-6.50); Neutrophils % (auto) 89.3 %; Platelet Count 522 K/uL (130-400); RDW Coefficient of Variation 17.4 % (11.5-14.5); RDW Standard Deviation 47.6 fL (36.4-46.3); Red Blood Count 4.57 M/uL (4.20-5.40); White Blood Count 11.78 K/ul (4.8-10.8)
[2024-01-01 14:55] LABS: Albumin Level 3.1 gm/dl (3.4-5.0); BUN Creatinine Ratio 30.8 (10-20); Bilirubin Direct 0.1 mg/dl (0-0.2); Bilirubin,Total 0.4 mg/dl (0.2-1.0); Calcium 8.6 mg/dl (8.6-10.3); Creatinine Clr Calc Pharmacy 93.2 ml/min; Est GFR (African American) 110.6 ml/min; Est GFR (Non-African American) 95.5 ml/min; Magnesium 1.7 mg/dl (1.7-2.4); Potassium 3.4 mmol/L (3.5-5.1); Total Protein 7.3 gm/dl (6.0-8.3)
--- NOTE | 2024-01-01 14:58 | CT Scan Report ---
HEAD CT NONCONTRAST CT DOSE: 625.8 mGy.cm HISTORY: Altered mental status. TECHNIQUE: Multiaxial CT images of the head were performed without the use of intravenous contrast. A utomated exposure control was utilized for this study. A dose lowering technique was utilized adheri ng to the principles of ALARA. Comparison: None. Findings: The paranasal sinuses and mastoid air cells are clear. The calvarium and skull base are int act. There is no mass, hematoma, midline shift, acute infarct. White matter hypodensity is nonspecifi c but suggestive of microvascular ischemic change. The ventricles and sulci demonstrate mild age-rela lexi involutional changes. Impression: No acute intracranial abnormality. ACT 112: Negative or not required by law. Electronically signed by: Akash Gross M.D. 01/01/2024 2:57 PM
[2024-01-01 15:01] LABS: Troponin I High Sensitivity 12.1 pg/ml (0-14)
[2024-01-01 15:09] LABS: INR 2.9 (0.9-1.1); Prothrombin Time 29.6 Seconds (9.0-12.0)
[2024-01-01] MEDS: SODIUM CHLORIDE 0.9% 500 ML IV ONE (15:13)
--- NOTE | 2024-01-01 15:14 | XRay Report ---
XR chest 1V portable HISTORY: 73 years-old Female Sepsis COMPARISON: 01/10/2022 TECHNIQUE: AP view of the chest FINDINGS: Cardiomediastinal and hilar silhouettes are within normal limits. No pneumothorax, pleural effusion o r airspace consolidation. No overt pulmonary edema. Cholecystectomy. Lumbar spinal fusion hardware. D egenerative changes of the shoulders and spine. IMPRESSION: No acute process. ACT 112: Negative or not required by law. The above report was generated using voice recognition software. It may contain grammatical, syntax o r spelling errors. Electronically signed by: Michael Kilpatrick M.D. 01/01/2024 3:13 PM
[2024-01-01 15:17] LABS: Appearance Urine Cloudy (Clear); Bilirubin Urine Negative (Negative); Blood Urine 3+ (Negative); Color Urine Amber; Glucose Urine UA Negative (Negative); Ketones Urine 1+ (Negative); Leukocyte Esterase Urine 3+ (Negative); Nitrite Urine Positive (Negative); Protein Urine 3+ (Negative); Specific Gravity Urine 1.025 (1.000-1.030); Urobilinogen Urine Negative (Negative); pH Urine 7.5 (4.5-7.5)
[2024-01-01] MEDS ORDERED: VANCOMYCIN CONSULT ACTIVE PRN (15:26)
[2024-01-01 15:39] LABS: Bacteria Urine 1+ (None Seen); WBC Urine >50 /hpf (0-5)
--- NOTE | 2024-01-01 15:58 | History & Physical Report ---
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 Pt has a chronic Kevin catheter for unclear reasons. Work-up in the ED appears consistent with UTI. Pt has apparently been diagnosed with new cancer of the bone in her left leg and possibly metastatic to lung but family is unclear on what the diagnosis specifically is or what the care plan/prognosis is. Will need to clarify. - Admit to PCU - Continue ceftriaxone - await urine culture - Change Kevin for now while awaiting records to help determine if this can be discontinued - Daily labs - Review of outpatient records shows an US from late November showing a complex LLQ anterior abd mass so will check CT abd/pel for better evaluation (2) Metabolic encephalopathy: Plan: Likely confusion is multifactorial due to infection and narcotics. Hold most of her narcotics and some of her sedating home medications to see if this helps with mental status. Since pt is hemodynamically stable and does have chronic pain, we will hold off on Narcan for now. Monitor mental status with treatment of infection. Will keep pt NPO until mental status improves as concern for aspiration if eating while this lethargic. For now, will use scheduled Tylenol for pt's chronic pain with low-dose oxycodone for breakthrough. (3) History of methicillin resistant staphylococcus aureus (MRSA): Plan: Family reports chronic wounds have been associated with MRSA infection Check wound culture, MRSA nasal swab Continue Vancomycin for now Wound care consult (4) Anemia: Plan: Chronic issue Appears to be around her baseline but no recent labs in Epic (5) PAD (peripheral artery disease): Plan: Was to see vascular surgery for a second opinion as outpatient but not clear that this was ever done Pt is on warfarin due to DVT in Aug 2023 - review of outpatient records shows that INR has been persistently elevated despite warfarin being on hold. Concern for liver dysfunction raised by cheyanne mercer. 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 outpatient oncology evaluation Plan Pt seen and reviewed with collaborating physician, Dr. Stevenson. Plan of care discussed and as outlined above. Will need to delineate goals and plan of care moving forward but limited information from family and Epic makes this difficult. Continue to try to get her records from [facility]. Code Status: Full code per pt's son DVT Prophylaxis: INR currently 2.9 - has been on chronic warfarin though currently on hold Time spent on H&P including extensive review of outpatient records, conversation with pt's son, and examination of the patient was 146 minutes. 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 History from the patient is unobtainable so her outpatient Epic records were extensively reviewed and her son at the bedside provides some additional information. Pt was admitted to [facility] 09/05/23- 09/09/23 when she was diagnosed with age-indeterminate left common femoral and superficial femoral vein DVTs as well as significant PVD for which she was started on Lovenox to bridge to warfarin. She also had an ongoing infection of the left AKA site, which was being treated with IV Dalvance. After discharge, she followed up with ID and wound care. At some point in October, it looks like she was diagnosed with osteomyelitis at [facility] and ultimately ended up with [facility] in [place] where she was treated although family was unclear on how she was treated. Records are not currently available to me but are being requested. During that admission, she was apparently diagnosed with "cancer in the bone" per her son and was recommended to have surgical removal with subsequent radiation and chemo, which patient initially refused. She was considering the surgical removal. She was discharged to [facility] but her family states she was unable to stay there for more than a couple of weeks due to insurance coverage. She was discharged from there to home where she lives with her and daughter and has been receiving home health services. Her family has been trying to get patient into the Cancer Center here as it sounds like she does not currently have a local oncologist. Since getting home from rehab, the family has noted progressive decline with increasing weakness. Pt typically uses a wheelchair and is active around the house, but she has been essentially lying in bed since coming home. Last night, she was interactive and alert, but this morning, her son and daughter noted she was more weak and confused so they called EMS who brought patient to the ED. Her son brings several pill bottles in with her to the ED including tizanidine, buspar, hydrocodone-acetaminophen, amitriptyline, and fentanyl pathches. He also reports that she has liquid morphine at home, which she has been taking for pain. He is unsure what other medications she is currently taking. She has a wound in her left groin, which he reports is chronic and has a history of MRSA infection. She has also had chronic issues with wounds on her AKA site. ABDOMINAL ULTRA LTD FINDINGS: Abdomen Ultrasound Limited: Real time images of the superficial soft tissues Left lower quadrant anterior abdomen in area of c linical concern in sagittal and transverse views were obtained. There is thick- walled complex collection and/or cystic lesion in the area of clinical concern. There are few scattered peripheral color Doppler registration may either represent flow within the wall of the lesion and/or in adjacent vessels. The lesion is measured approximate 3 x 1.1 x 1.9 cm. Finding possibly represent hematoma, abscess and/or complex cystic lesion of other origin. Further evaluation recommended which may include additional imaging modalities among other workup. CONCLUSION: 1. Left lower quadrant anterior abdomen complex lesion as described. Further evaluation recommended. ELECTRONICALLY SIGNED BY LEIA ZAPATA D.O. 12/22/2023 2:12:12 PM EDT. Allergies Allergy/AdvReac Type Severity Reaction Status Date / Time vancomycin AdvReac Severe WORSENING Verified 10/11/23 13:05 RENAL FUNCTION cetirizine AdvReac Intermediate BOWEL Verified 10/11/23 13:05 CRAMPS gabapentin [From Neurontin] AdvReac Unknown DID NOT Verified 10/11/23 13:05 WORK FOR PAIN Home Medications Medication Instructions Recorded Confirmed Type atorvastatin 20 mg tablet 20 mg PO HS 05/21/19 01/01/24 History buspirone 10 mg tablet 10 mg PO BID 06/19/20 01/01/24 History tizanidine 4 mg tablet (Zanaflex) 2 - 4 mg PO HS PRN Muscle Spasm 06/19/20 01/01/24 History docusate sodium 100 mg capsule 100 mg PO BID 12/31/21 01/01/24 History (Colace) alendronate 70 mg tablet 70 mg PO WK 07/21/23 01/01/24 History losartan 25 mg tablet 25 mg PO QAM 07/21/23 01/01/24 History pregabalin 150 mg capsule 150 mg PO TID 07/21/23 01/01/24 History amitriptyline 50 mg tablet 50 mg PO HS 01/01/24 01/01/24 History amlodipine 10 mg tablet 10 mg PO QAM 01/01/24 01/01/24 History fentanyl 50 mcg/hr transdermal 1 patch transdermal Q72H 01/01/24 01/01/24 History patch hydrocodone 5 mg-acetaminophen 325 1 tab PO BID PRN Mild Pain (Scale 01/01/24 01/01/24 History mg tablet Score 1-4) morphine 10 mg/5 mL oral solution See Rx Instructions .Route .COMPLEX 01/01/24 01/01/24 History naloxone 4 mg/actuation nasal spray 1 spray intranasal UD PRN - 01/01/24 01/01/24 History warfarin 1 mg tablet 1 mg PO DAILY 01/01/24 01/01/24 History Past Med/Surg History Medical History (Updated 01/01/24 @ 17:48 by Lona Gallagher PA-C) Anemia Superior mesenteric artery stenosis Weakness Near syncope Pre-syncope Osteoarthritis Presence of pessary Hearing deficit BL FABIAN Hyperlipidemia Bile duct stone Hx of sarcoma of bone LLE; h/o surgery, radiation treatment 1989 History of anxiety Hypertension PAD (peripheral artery disease) PFO (patent foramen ovale) Surgical History History of cholecystectomy lap [place]: 07/20/20: Grade view 3, MAC#3.0, ETT 7.0 at [facility] History of ERCP History of elbow surgery Left History of carpal tunnel release Right 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) History of lumbar surgery x2 History of cancer surgery LLE History of colonoscopy History of ankle surgery Left History of section X 1 History of tonsillectomy and adenoidectomy History of hip surgery x 2 - Left Family History Mother Anxiety Cardiac disorder Father Cardiac disorder Myocardial infarction Hypertension Grandmother (Maternal) Diabetes Other No family history of adverse response to anesthesia Social History Smoking Status: Never smoker Second Hand Exposure: No; Do You Dip or Chew Tobacco: No; Hx Alcohol Use: No Hx Substance Use: No Preferred Language: Ukrainian Communication Ability: Effective [employer] Required: No Beliefs That Will Affect Care: None marital status: Current Living Situation: Family Current Living Situation Comment: Erik () and Taya (daughter) Other Information That Helps Us Care for You: No Feels Safe at Home: Yes Safety Concerns: Feels Safe At This Time Assistive Devices: Bedside Commode, Glasses, Hearing Aid - Bilateral, Hospital Bed and Wheelchair Review of Systems Review of Systems: Unobtainable due to reduced consciousness (lethargic but arouses - does not answer questions) Physical Exam Physical Exam: General: lethargic but arouses to verbal stimuli, not answering questions coherently HEENT: no scleral icterus Neck: trachea midline Heart: tachycardic but regular Lungs: mildly diminished but clear Abdomen: soft, +BS, +colostomy bag in right abdomen with dark green stool Skin: +wound in left groin area - no purulent drainage, AKA with dressing C/D/I Kevin with dark cloudy urine Results & Data Results & Data Vital Signs (Past 12 Hours) Vital Signs Temp Pulse Pulse Resp BP BP Pulse Ox 01/01/24 15:15 104 H 18 142/100 H 94 01/01/24 15:00 105 H 18 155/94 H 98 01/01/24 14:45 106 H 18 158/98 H 98 01/01/24 14:30 109 H 18 159/99 H 98 01/01/24 14:15 107 H 20 159/99 H 98 01/01/24 14:08 98 01/01/24 14:03 111 H 01/01/24 14:00 108 H 20 155/101 H 98 01/01/24 13:46 98 01/01/24 13:45 113 H 20 154/95 H 98 01/01/24 13:24 98 01/01/24 13:24 98 01/01/24 13:24 36.7 C 113 H 28 H 154/95 H 98 O2 Del Method O2 Flow Rate 01/01/24 15:15 Room Air 01/01/24 15:00 Nasal Cannula 2 01/01/24 14:45 Nasal Cannula 2 01/01/24 14:30 Nasal Cannula 2 01/01/24 14:15 Nasal Cannula 2 01/01/24 14:08 Room Air 01/01/24 14:03 01/01/24 14:00 Nasal Cannula 2 01/01/24 13:46 Room Air 01/01/24 13:45 Nasal Cannula 2 01/01/24 13:24 Room Air 01/01/24 13:24 Room Air 01/01/24 13:24 Room Air Laboratory Results Laboratory Results - last 24 hr 01/01/24 01/01/24 13:54 13:59 WBC 11.78 H RBC 4.57 Hgb 10.6 L Hct 34.5 L MCV 75.5 L MCH 23.2 L MCHC 30.7 L RDW Std Deviation 47.6 H RDW Coeff of Leslie 17.4 H Plt Count 522 H MPV 9.2 L Immature Gran % (Auto) 0.8 Neut % (Auto) 89.3 Lymph % (Auto) 4.8 [place] % (Auto) 4.8 Eos % (Auto) 0.1 Baso % (Auto) 0.2 Neut # (Auto) 10.51 H Lymph # (Auto) 0.57 L [place] # (Auto) 0.57 Eos # (Auto) 0.01 Baso # (Auto) 0.02 Immature Gran # (Auto) 0.10 PT 29.6 H INR 2.9 H Sodium 130 L Potassium 3.4 L Chloride 91 L Carbon Dioxide 24 Anion Gap 15 H BUN 16 Creatinine 0.52 L Est Cr Clr Drug Dosing 93.2 Est GFR ( Amer) 110.6 Est GFR (Non-Af Amer) 95.5 BUN/Creatinine Ratio 30.8 H Glucose 125 H Lactate 1.5 Calcium 8.6 Magnesium 1.7 Total Bilirubin 0.4 Direct Bilirubin 0.1 AST 26 ALT 14 Alkaline Phosphatase 297 H Troponin I High Sens 12.1 Total Protein 7.3 Albumin 3.1 L Procalcitonin 1.09 H Urine Color Ernesto Urine Appearance Cloudy A Urine pH 7.5 Ur Specific [place] 1.025 Urine Protein 3+ H Urine Glucose (UA) Negative Urine Ketones 1+ H Urine Blood 3+ H Urine Nitrite Positive A Urine Bilirubin Negative Urine Urobilinogen Negative Ur Leukocyte Esterase 3+ H Urine RBC 6-10 H Urine WBC >50 H Ur Epithelial Cells 3-5 H Urine Bacteria 1+ H Diagnostic Findings Chest X-Ray 01/01/24 14:08 XR chest 1V portable HISTORY: 73 years-old Female Sepsis COMPARISON: 01/10/2022 TECHNIQUE: AP view of the chest FINDINGS: Cardiomediastinal and hilar silhouettes are within normal limits. No pneumothorax, pleural effusion or airspace consolidation. No overt pulmonary edema. Cholecystectomy. Lumbar spinal fusion hardware. Degenerative changes of the shoulders and spine. IMPRESSION: No acute process. ACT 112: Negative or not required by law. The above report was generated using voice recognition software. It may contain grammatical, syntax or spelling errors. Electronically signed by: Michael Kilpatrick M.D. 01/01/2024 3:[address] 01/01/24 14:[address] DOSE: 625.8 mGy.cm HISTORY: Altered mental status. TECHNIQUE: Multiaxial CT images of the head were performed without the use of intravenous contrast. Automated exposure control was utilized for this study. A dose lowering technique was utilized adhering to the principles of ALARA. Comparison: None. Findings: The paranasal sinuses and mastoid air cells are clear. The calvarium and skull base are intact. There is no mass, hematoma, midline shift, acute infarct. White matter hypodensity is nonspecific but suggestive of microvascular ischemic change. The ventricles and sulci demonstrate mild age-related involutional changes. Impression: No acute intracranial abnormality. ACT 112: Negative or not required by law. Electronically signed by: Akash Grsos M.D. 01/01/2024 2:57 PM Medications Administered Discontinued Medications Sodium Chloride (Nss) 500 mls @ 999 mls/hr IV .Q31M ONE Stop: 01/01/24 15:26 Last Admin: 01/01/24 15:13 Dose: 999 mls/hr Documented By: JAYMIEK Supervising Physician Co-Signing Physician Notes Patient was seen and examined independently at bedside. Chart reviewed. Case discussed with Lona SALMERON and agree with the documentation above. In summary, this is a 73 year old female with complicated medical history as above including prior liposarcoma left lower extremity status post left AKA, recently diagnosed ?Bone cancer who was recently discharged from [facility] 2 wks back after hospitalization at [facility] in [place] who was brought to the ED for AMS and lethargy since this morning. Son at bedside states that she has been awake alert conversive throughout the week and went to bed fine last night but has been lethargic, weak and confused since this morning and hence brought to the ED. son was at bedside. States she has upcoming appointment with PCP and they are planning to get all her cancer care in [place] and do not want to go back to [place]. During encounter, patient was lying in bed, comfortable, not in acute distress. Arousable to verbal stimuli and would answer basic questions. Awake alert oriented to self, thinks she is in [facility]. States she has 8/10 pain. He son says her pain and pain medicine has been an ongoing issue for her. No fever, chills, chest pain, shortness of breath, nausea or vomiting. Discussed labs, imaging and further plan of care. Will await medical records from [facility], [place], operated by [facility]. UA consistent with UTI. Kevin changed in ED. Continue empiric antibiotics pending urine culture results. Will get CT abdomen pelvis with contrast to elucidate the lesion seen in recent abdominal ultrasound. Will consult palliative to discuss goals of care and for pain management. Might need to involve oncology depending on the records and CT finding, and also to expedite outpatient care and follow-up. Discussed with son at bedside. On exam- General: Sick looking, lethargic, not in acute distress, on room air HEENT: LILIAN, MMM Chest: Fair breath sounds anteriorly, no wheezes or crackles CVS: Regular rate and rhythm, normal heart sounds, no murmur Abdomen: Soft, tenderness left lower quadrant, colostomy with stool, normal bowel sounds Neuro: Lethargic, arousable to verbal stimuli, answers basic questions, AAOx1 Extremities: Left AKA with stump wrapped Wound in left groin area-no purulent drainage Kevin with ernesto urine Rest as per the note above. (1) UTI (urinary tract infection) Encounter type: initial encounter Indwelling urinary catheter type: in dwelling urethral catheter Urinary tract infection type: catheter-associated UTI Qualified Code(s): T83.511A - Infection and inflammatory reaction due to indwelling urethral catheter, initial encounter; N39.0 - Urinary tract infection, site not specified (4) Anemia Anemia type: iron deficiency Iron deficiency anemia type: unspecified iron deficiency Qualified Code(s): D50.9 - Iron deficiency anemia, unspecified
[2024-01-01] MEDS: cefTRIAXone SODIUM 2000MG/50ML D5W IV ONE (16:12)
[2024-01-01] MEDS: SODIUM CHLORIDE 0.9% 1,000 ML IV ONE (16:13)
[2024-01-01] MEDS: cefTRIAXone SODIUM 2,000 MG in DEXTROSE 5 % MINI-B 50 ML IV STA (16:13)
[2024-01-01] MEDS: VANCOMYCIN HCL 1,500 MG in SODIUM CHLORIDE 0.9% 500 ML IV ONE (16:50)
[2024-01-01] MEDS: ACETAMINOPHEN 1,000 MG/100 ML VIAL IV SCH (17:16)
[2024-01-01] MEDS ORDERED: oxyCODONE HCL IR 5 MG TAB (IMMEDIATE RELEASE) PO PRN (17:34)
[2024-01-01] MEDS: OPTIRAY 320 100ml IV ONE (18:22)
--- NOTE | 2024-01-01 18:49 | CT Scan Report ---
ABDOMEN AND PELVIS CT WITH IV CONTRAST CT DOSE: 1180.16 mGy.cm HISTORY: Acute left lower quadrant abdominal pain . Prior left-sided colonic resection with right low er quadrant ostomy. LLQ anterior abd complex lesion US 12/21 TECHNIQUE: Multiaxial CT images of the abdomen and pelvis were performed following the IV administrat ion of 92 cc of Optiray, A dose lowering technique was utilized adhering to the principles of ALARA. COMPARISON STUDY: CT abdomen and pelvis 12/31/2021, femur radiographs 07/21/2023, 03/03/2021, CT left hip 10/29/2020 FINDINGS: Cardiomegaly with coronary arterial calcifications. Mild dependent subsegmental bibasilar a telectasis. Right hemidiaphragmatic elevation. No free air identified. Unremarkable spleen, pancreas and adrenal glands. Cholecystectomy with likely postsurgical pneumobilia. The liver is otherwise unre markable. There is patency of the hepatic and portal veins. Cortical scarring of the superior to mid pole right kidney. Bilateral nonobstructing renal calculi me asuring up to 12 mm on the right. 1.5 cm calculus in the dependent left renal pelvis. There is layeri ng debris versus calcifications within the dependent right renal pelvis. There is mild left-sided hyd roureteronephrosis with urothelial thickening, likely secondary to distal obstruction secondary to a large pelvic mass as below. Atherosclerosis of the aorta. Expansile thrombus is noted within the infr arenal IVC and also within the bilateral common iliac veins. There is also thrombus in the left inter nal and external iliac veins and also possibly within the left femoral vein. 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 No definite lymphadenopathy. Urinary bladder wall thickening with Kevin frandy ter. Air is also present within the urinary bladder lumen. Circumferential wall thickening of the rec tosigmoid. Additional wall thickening of the cecum. There is a large cystic mass centered within the left hemipelvis encasing the left iliac bone and sac rum with involvement of the left psoas, iliopsoas, iliacus, gluteal, obturator internus and proximal thigh musculature. The mass contains marginal calcifications and overall measures approximately 15 x 15 x 21 cm. 3.27 m subcutaneous nodules in the left anterior abdominal wall. Areas of loculated fluid versus hypodense mesenteric nodules noted within the abdominal flow or quadrant. The mass extends in to the left lateral abdominal wall. Lucent/osteolytic bony destruction is noted within portions of th e left sacrum and iliac bone. Heterogeneous sclerotic appearance of the left hemipelvis and left prox imal femur is a chronic finding. Chronic left proximal femoral fixated fracture deformity. Postoperat roberta changes of the lumbar spine. Prior left-sided colonic resection with right lower quadrant ostomy and bowel-containing parastomal h ernia redemonstrated. Additionally, there is a periumbilical hernia with diastases of 7.8 cm containi ng mesenteric fat and nonobstructed bowel. IMPRESSION: 1. There is a large mixed cystic and solid and partially calcified mass within the left hemipelvis as above encasing the left pelvic musculature and left hemipelvis with osseous lytic erosion of the sac rum and left iliac bone overall measuring up to approximately 21 cm. An indeterminate malignancy woul d be the differential of exclusion. Follow-up with oncology is needed. 2. Bilateral nephrolithiasis with calculi within the bilateral renal pelves. Mild left-sided hydroure teronephrosis with urothelial thickening is likely secondary to distal ureteral obstruction from the large pelvic mass. 3. No bowel obstruction. 4. Prior left-sided colonic resection with right lower quadrant ostomy and peristomal hernia redemons trated. 5. 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 6. Additional findings as above. ACT 112: Negative or not required by law. The above report was generated using voice recognition software. It may contain grammatical, syntax o r spelling errors. Electronically signed by: Michael Kilpatrick M.D. 01/01/2024 6:47 PM
[2024-01-01] MEDS: POTASSIUM CHLORIDE CRTAB 20 MEQ TABCR PO ONE (20:32)
[2024-01-01] MEDS: fentaNYL 50 MCG/HR TDSY TD SCH (20:32)
[2024-01-01] MEDS: POTASSIUM CHLORIDE / WTR 10 MEQ/100 ML PLCT IV ONE (20:37)
[2024-01-01] MEDS: DOCUSATE SODIUM 100 MG CAP PO SCH (20:43)
[2024-01-01] MEDS: busPIRone 5 MG TAB PO SCH (20:43)
[2024-01-01] MEDS: PREGABALIN 150 MG CAP PO SCH (20:43)
--- OUTSIDE RECORDS SUMMARY | 2024-01-01 23:17 | External Medical Summary | Summary of Care ---
Author Name Unknown Organization [facility] Address [address] [place] [address] Phone [phone] Care Team Providers Care Cabin Supervisor Name Role Phone Sara Schwarz MD Primary Care Prov ider Reason for Visit * Reason Comments Dosage Adjustment Via Phone (anticoag Cl inic) Encounter Details Date Type Department Care Team (Latest Contact Info) Description 12/29/2023 5:30 PM EDT Anticoagulation Pharmacy, [address] [place] [address] [place] [address] Acute deep vein thrombosis (DVT) of other vein of lower extremity, unspecified laterality (HCC)* Allergies Active Allergy Reactions Criticality Noted Date Comments Cetirizine & Related 10/13/2003 zyrtec-much gi distress Vancomycin High 07/20/2020 Other reaction(s): kidney issues, unknown, WORSENING RENAL FUNCTION documented as of this encounter (statuses as of 12/29/2023) Medications Medication Sig Dispensed Refills Start Date End Date Status Aspirin 81 MG Tablet Take 1 Tablet by mouth in the morning and 1 Tablet before bedtime. 0 Active Multiple Vitamin (MULTIVITAMINS) Capsule Take 1 Capsule by mouth in the morning. 0 Active Acetaminophen ER 650 MG Oral Tablet Extended Release Take 1 Tablet by mouth. 1 tab every 6 hours as needed 0 Active Docusate Sodium 100 MG Oral Capsule Take 1 Capsule by mouth in the morning and 1 Capsule before bedtime. 0 Active Zoster Vac Recomb Adjuvanted 50 MCG/0.5ML Intramuscular Suspension Reconstituted (Shingrix) Inject 0.5 mL into a large muscle now and repeat dose in 60 to 180 days 1 Each 1 2 Active Iron 325 (65 Fe) MG Oral Tablet Take by mouth. 0 Active Vitamin D 25 MCG (1000 UT) Oral Tablet Take by mouth. 0 Active Amitriptyline HCl 25 MG Oral Tablet (Elavil)Indications :Other osteoarthritis of spine, lumbar region,Polyneuropat hy in other diseases classified elsewhere ([facility]) Take 1 Tablet by mouth at bedtime. In addition to 50 mg tablet 90 Tablet 3 3 Active Svhmy-7-etvz Ethyl Esters 1 GM Oral CapsuleIndications: Dyslipidemia, goal LDL below 100 Take 4 capsules daily by mouth 360 Capsule 11 3 Active Amitriptyline HCl 50 MG Oral Tablet (Elavil) TAKE 1 TABLET BY MOUTH EVERYDAY AT BEDTIME 90 Tablet 3 3 Active Pregabalin 150 MG Oral Capsule (Lyrica) Take 1 Capsule by mouth in the morning and 1 Capsule at noon and 1 Capsule before bedtime. 90 Capsule 5 3 Active busPIRone HCl 10 MG Oral Tablet (Buspar)Indications :Anxiety TAKE 1 TABLET BY MOUTH IN THE MORNING AND BEFORE BEDTIME 180 Tablet 3 3 Active Probiotic Product Oral Capsule Take 1 Capsule by mouth in the morning. 3,000 mmu cells daily with meals . 0 3 Active HYDROcodone-Acetami nophen 10-325 MG Oral TabletIndications:H istory of amputation of left lower extremity through tibia and fibula ([facility]),Chronic bilateral back pain, unspecified back location Take 1 Tablet by mouth 2 times a day as needed for Pain, Severe. 60 Tablet 0 3 Active Alendronate Sodium 70 MG Oral Tablet (Fosamax)Indication s:Age-related osteoporosis without current pathological fracture TAKE 1 TABLET BY MOUTH ONCE A WEEK. WITH 8 OZ. WATER 30 MINUTES BEFORE FIRST MEAL OF THE DAY REMAIN UPRIGHT FOR 30 MIN AFTER TAKING 12 Tablet 1 3 Active Atorvastatin Calcium 20 MG Oral Tablet (Lipitor)Indication s:Dyslipidemia, goal LDL below 100 TAKE 1 TABLET BY MOUTH EVERY DAY IN THE EVENING 90 Tablet 3 3 Active Enoxaparin Sodium 80 MG/0.8ML Injection Solution Prefilled Syringe (Lovenox) Inject 80 mg under the skin in the morning and 80 mg before bedtime. Per hospital discharge [id number]. 0 3 Active Zinc 15 66 MG Oral Tablet (Zinc Sulfate) Take by mouth once. Patient unsure dosage 0 Active Losartan Potassium 25 MG Oral Tablet (Cozaar)Indications :HTN, goal below 140/90 TAKE 1 TABLET BY MOUTH EVERY DAY IN THE MORNING 90 Tablet 1 3 Active HYDROcodone-Acetami nophen 5-325 MG Oral TabletIndications:A mputation stump infection (HCC) Take 1 Tablet by mouth 2 times a day as needed for Pain, Mild or Pain, Breakthrough. 60 Tablet 0 4 Active Warfarin Sodium 3 MG Oral Tablet (Coumadin) Take 1-2 tablets by mouth daily as directed by anticoagulation clinic 180 Tablet 3 4 Active OxyCONTIN 10 MG Oral Tablet ER 12 Hour Abuse-DeterrentIndi cations:History of amputation of left lower extremity through tibia and fibula (HCC),Chronic bilateral back pain, unspecified back location Take 1 Tablet by mouth in the morning. Brand necessary. 30 Tablet 0 4 Active amLODIPine Besylate 10 MG Oral Tablet (Norvasc)Indication s:HTN, goal below 140/90 TAKE 1 TABLET BY MOUTH EVERY DAY IN THE MORNING 90 Tablet 1 4 Active tiZANidine HCl 4 MG Oral Tablet (Zanaflex)Indicatio ns:Cervicalgia,DDD (degenerative disc disease), cervical,Spasm of muscle TAKE 1/2-1 TABLET BY MOUTH DAILY NEEDED FOR SPAMS 90 Tablet 1 4 Active documented as of this encounter (statuses as of 12/29/2023) Active Problems Problem Noted Date Diagnosed Date Chronic deep vein thrombosis (DVT) of femoral vein of left lower extremity 09/19/2023 Acute deep vein thrombosis ( DVT) of other vein of lower extremity, unspecified laterality 09/11/2023 Superior mesenteric artery stenosis 2022 Colostomy status 11/25/2021 ADVANCE DIRECTIVE INFORMATION 05/07/2021 Overview: No, Advance Directive brochure given to patient at prior appointment. Rectocele 05/07/2021 Cystocele, midline 05/07/2021 PVD (peripheral vascular disease) 02/23/2021 Polyneuropathy in other diseases classified else where 05/25/2020 Anxiety 06/21/2018 History of amputation of lef t lower extremity through tibia and fibula 03/09/2017 Iron deficiency anemia due to chronic blood loss 07/19/2016 Controlled substance agreement signed 07/04/2016 Overview: Chronic back pain and left leg pain 2/2 cancer treatment and back surgery. Psychophysiological insomnia 10/23/2015 Dyslipidemia, goal LDL below 100 04/09/2013 Degenerative arthritis of lumbar spine 2 Patent foramen ovale 03/23/2012 HTN, GOAL BELOW 140/90 07/31/2009 Overview: Modified per HTN Taxonomy. 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 Mixed dyslipidemia 06/11/2004 9 Overview: Per Lipid Taxonomy. BACKACHE NOS 10/13/2003 08/01/2019 Overview: acute BENIGN HYPERTENSION 07/31/20 09 Overview: Modified per HTN Taxonomy. CARDIOMYOPATH IN OTH DIS 11/2016 Dyslipidemia, goal LDL below 100 03/23/2012 documented as of this encounter (statuses as of 12/29/2023) Immunizations Name Administration Dates Next Due COVID-19 mRNA, LNP-s, No Pre serve, 2-Dose Series (Whisk (formerly Zypsee)) 01/19/2021,11/28/2020 COVID-19, MRNA-LNP, 23-24, P F, 30 MCG/0.3 mL, 12 YRS AND ABOVE, IM ([employer]ir[employer]) 07/14/2023 Covid-19 Adenovirus, [place] 1 Vector, 2-dose Series, PF (EverTrue) 08/10/2021 Covid-19, Mrna, Lnp-s, Pf, B ivalent, 30 Mcg, IM, 12 yrs and above (Whisk (formerly Zypsee)) 09/06/2022 PPD 12/12/2023,12/02/2023,07/21/2021 Pneumococcal Conjugate Vacc, 13 Valent (Prevnar) 09/01/2016 Pneumococcal Polysaccharide PPV23 (Pneumovax) 05/25/2020,05/25/2019,07/31/2016,03/05 Seasonal Influenza Virus Vac cine, Unspecified Formulation 07/12/2019,06/21/2018,06/14/2017,06/09,06/25/2010,08/05/2009 Seasonal Influenza, PF, 6 M & above, IM , (FluLaval or Fluzone) 06/20/2020,06/21/2018,06/14/2017 Seasonal Influenza, Quadriva lent Hd (Fluzone Hd) 07/14/2023,06/30/2022,05/27/2021 Seasonal Influenza, Quadriva lent, No Preserve, IM 06/09/2016 Seasonal Influenza, Recombin ant, RIV4, PF, (Flublock) 06/20/2020,06/19/2020 Seasonal Influenza, Split, I IV3, With Preserve, Inj 06/05/2015,07/28/2014,06/12/2013,07/24,09/30/2011,06/25/2010,08/05/2009 Seasonal Influenza, Trivalen t, Adjuvanted, 65+ yrs 07/12/2019 TB Nichol Test 12/31/1979 TDAP (age 10 and older)(Boostrix) 12/20/2018 TDAP (age 11 and older)(Adacel) 05/30/2008 Varicella Zoster Vaccine (Adult) 06/20/2020,040 03/2015 Zoster Vaccine Recombinant (Shingrix) 06/20/2020 documented as of this encounter Social History Tobacco Use Types Packs/Day Years Used Date Smoking Tobacco: Former Cigarettes Q uit: 07/21/2014 Smokeless Tobacco: Never Alcohol Use Standard Drinks/Week Comments Yes 0 (1 standard drink = 0.6 oz pur e alcohol) rare PHQ-2 Answer Date Recorded PHQ Adult Total Score 0 01/06/2023 Hunger Vital Sign Answer Date Recorded Within the past 12 months, y ou worried that your food would run out before you got the money to buy more. Patient declined Within the past 12 months, t he food you bought just didn't last and you didn't have money to get more. Patient declined Sex and Gender Information Value Date Recorded Sex Assigned at Female 01/06/2023 2:09 PM EDT Gender Identity Female 01/06/2023 2:09 PM EDT Sexual Orientation Straight 01/06/2023 2: 09 PM EDT Job Start Date Occupation Industry Not on file Not on file Not on file documented as of this encounter Progress Notes * Janae Khan, [facility] - 12/29/2023 12:38 PM EDT Images from the original note were not included. Medication Therapy Disease Management - Anticoagulation Patient: Eda Estrada | : 1950 Subjective Contacts Type Contact Phone/Fax 12/29/2023 01:22 PM EDT Phone (Outgoing) Eda Estrada (Self) [phone] (H) Spoke to Patient 12/29/2023 01:22 PM EDT Phone (Outgoing) [facility] [phone] Patient-Reported Symptoms: Patient Findings Negatives: Signs/symptoms of thrombosis, Signs/symptoms of bleeding, Change in health, Change in alcohol use, Change in activity, Upcoming invasive procedure, Missed doses, Extra doses, Change in medications, Change in diet/appetite, Bruising Objective Current Warfarin Dose As of 12/29/2023 Warfarin maintenance plan: No maintenance plan INR Result As of 12/29/2023 INR goal: 2.0-3.0 INR used for dosin.5 (12/29/2023) Assessment & Plan Warfarin Plan As of 12/29/2023 Full warfarin instructions: 12/28: Hold; 12/29: Hold; 12/30: Hold Next INR check: 01/01/2024 Repeat PT/INR in 3 day(s) Weekly dose: re-establishing Additional Dosing Information: INR continuing to remain elevated despite holding warfarin. No discharge summary available. Hospital d/c appointment scheduled for 12/31. Discussed with PCP in 12/26 TE. Possible liver dysfunction? Will plan to further discuss continuation of anticoagulation. Called and spoke with patient to confirm no warfarin has been taken. Will continue holding through the weekend and repeat INR 12/31 at [facility]. Called and spoke with [facility]. They are seeing the patient on 12/31 and 01/04, agreeable to obtain INR on 01/04 as patient has inperson office visit on12/31. 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 # [phone] Ok to use fingerstick Dx: Acute DVT I82.409 Ordering provider: Sara Schwarz MD Please fax INR results to [facility] at [phone] [facility] can be reached at with any questions or problems Janae Khan RP Clinical Pharmacist 12/29/2023, 12:38 PM * Bro Gutierrez dental mold maker - 12/29/2023 12:20 PM EDT Verbal results from Joanna at [facility]: 4./ -- will fax hard copy. documented in this encounter Plan of Treatment Upcoming Encounters Date Type Department Care Team (Late st Contact Info) Description 01/01/2024 1:40 PM EDT Anticoagulation Pharmacy, [address] [place] [address] [place] [address] 01/01/2024 2:00 PM EDT Office Visit Family Medicine [address] [place] [phone] Reji Yan MD [address] [place] [address] [place] [address] 01/15/2024 6:10 PM EDT Pharmacy Pharmacy, [facility] [place] [address] [facility] [address] [place] [address] Health Maintenance Due Date Last Done Comments Cologuard 01/13/1996 Fecal Occult Blood Test 01/13/1996 Sigmoidoscopy 01/13/1996 Zoster Vaccines (3 of 3) 08/15/2020 020, 06/20/2020, 12/30/2014 Depression Screening 01/07/2024 01/06/2023 Mammogram 10/09/2024 10/09/2023, 0204/2023, 10/07/2022, Additional history exists GFR 11/06/2024 11/06/2023, 09/26, 07/07/2023, Additional history exists Albumin/Creatinine Ratio 05/10/2025 05/10/2022 Lipid Panel 07/14/2028 07/14/2023, 04/25, 05/25/2020, Additional history exists DTaP,Tdap,and Td Vaccines (3 - Td or Tdap) 12/20/2028 12/20/2018, 05/30/2008 DXA Scan 10/12/2029 10/12/2022, 10/26, 10/18/2012 Colonoscopy 05/24/2031 05/24/2021, 12/09/2004 Colorectal Cancer Screening 05/24/2031 Pneumococcal Vaccine: 65+ Years Completed 05/25/2020, 05/25/2019, 09/01/2016, Additional history exists COVID-19 Vaccine Completed 07/14/2023, , 08/10/2021, Additional history exists Influenza Vaccine (FLU shot) Completed , 06/30/2022, 05/27/2021, Additional history exists GARDASIL-HPV IMMUNIZATION SERIES Aged Out No longer eligible based on patient's age to complete this topic Hepatitis B Aged Out No longer eligi ble based on patient's age to complete this topic MENINGOCOCCAL (MENACTRA/MENVEO) Aged Out No longer eligible based on patient's age to complete this topic documented as of this encounter Medical Devices Not on filedocumented as of this encounter Procedures Procedure Name Priority Date/Time Associated Diagnosis Comments OUTSIDE LAB-PT/INR Routine 12/29/2023 documented in this encounter Results * OUTSIDE LAB-PT/INR (12/29/2023) INR-OUTSIDE LAB 4.5 History Per Patient LABORATORY documented in this encounter Visit Diagnoses Diagnosis Acute deep vein thrombosis (DVT) of other vein of lower extremity, unspecified laterality (HCC)- Primary documented in this encounter Care Teams Cabin Supervisor Relationship Specialty Start Date End Date Sara Schwarz MD [address] [place] [address] [place] [address] PCP - General Family Medicine 07/13/21 documented as of this encounter"
--- OUTSIDE RECORDS SUMMARY | 2024-01-01 23:17 | External Medical Summary | Summary of Care ---
Author Name Unknown Organization [facility] Address [address] [place] [address] Phone [phone] Care Team Providers Care Certified Diabetes Educator Name Role Phone Sara Schwarz MD Primary Care Prov ider Encounter Details Date Type Department Care Team (Late st Contact Info) Description 12/27/2023 Telephone Pharmacy, [address] [place], [place] [phone] Janae Khan, [facility] [address] [place], [place] [id number] Allergies Active Allergy Reactions Criticality Noted Date [...] region,Polyneuropat hy in other diseases classified elsewhere ([facility]) Take 1 Tablet by mouth at bedtime. In addition to 50 mg tablet 90 Tablet 3 3 Active Uvvix-2-otkl Ethyl Esters 1 GM Oral CapsuleIndications: Dyslipidemia, [...] left lower extremity through tibia and fibula ([facility]),Chronic bilateral back pain, unspecified back location Take [...] 80 mg before bedtime. Per hospital discharge [id number]. 0 3 Active Zinc 15 66 MG [...] mRNA, LNP-s, No Pre serve, 2-Dose Series ([employer]) 01/19/2021,11/28/2020 COVID-19, MRNA-LNP, 23-24, P F, 30 MCG/0.3 mL, 12 YRS AND ABOVE, IM ([employer]-ComirnatZondle) 07/14/2023 Covid-19 Adenovirus, [place] 1 Vector, 2-dose Series, PF ([employer]) 08/10/2021 Covid-19, Mrna, Lnp-s, Pf, B ivalent, 30 Mcg, IM, 12 yrs and above (Pfizer) 09/06/2022 PPD 12/12/2023,12/02/2023,07/21/2021 Pneumococcal Conjugate Vacc, 13 [...] and older)(Adacel) 05/30/2008 Varicella Zoster Vaccine (Adult) 06/20/2020,03/2015 Zoster Vaccine Recombinant (Shingrix) 06/20/2020 documented as [...] on file documented as of this encounter Miscellaneous Notes * Telephone Encounter - Sara Schwarz MD - 12/29/2023 4:26 PM EDT Agree with plan to hold coumadin. Hopefully we will have her hospital records by Monday. * Telephone Encounter - Janae Khan RPh - 12/29/2023 12:[address] Rui Lind - INR obtained today. Continuing to remain elevated > 4 despite holding warfarin all week. I spoke with patient, confirmed she has not been putting in her pillbox and has not been taking. Will plan to continue holding through the weekend repeat INR at hospital d/c visit on 12/31. Possible liver dysfunction? Routing to Dr Yan as well to make aware for 12/31. Janae Khan RPh, PharmD Clinical Pharmacist - Poultry Picker Medication Therapy [facility] 12/29/2023, 12:57 PM Ph.[phone] * Telephone Encounter - Sara Schwarz MD - 12/28/2023 12:21 PM EDT We need her Discharge Summary from [facility] from October to understand her current status and plan of care. Unclear to me whether she: 1) has current DVT 2) has recurrent osteosarcoma We need these records to provide appropriate care to her. * Telephone Encounter - Janae Khan RPh - 12/27/2023 4:59 PM EDT Received return call from on-call nurse. Agreeable to obtain INR at next visit on 12/28. Call placed. Of note, patient started on anticoagulation on 09/09/23 for treatment of DVT. Routing to PCP to assess anticoagulation status now that x3 months of treatment have been completed. Janae Khan RPh, PharmD Clinical Pharmacist - Poultry Picker Medication Therapy [facility] 12/27/2023, 5:02 PM [phone] * Telephone Encounter - Janae Khan RPh - 12/27/2023 4:37 PM EDT Attempted to contact [facility] ([phone]). Left message with nursing regarding nextvisit. Will look towards obtaining INR at that time as patient cancelled 12/25 HD appointment. Janae Khan RPh, PharmD Clinical Pharmacist - Poultry Picker Medication [facility] 12/27/2023, 4:38 PM [phone] documented in this encounter Plan of Treatment Upcoming Encounters Date Type Department Care Team (Latest Contact Info) Description 12/29/2023 5:30 PM EDT Anticoagulation Pharmacy, [address] [place] [phone] [address] [place] [address] Acute deep vein thrombosis (DVT) of other vein of lower extremity, unspecified laterality (HCC)* 01/01/2024 1:40 PM EDT Anticoagulation Pharmacy, [address] [place] [address] [place] [address] 01/01/2024 2:00 PM EDT Office Visit Family Medicine [address] [place] [phone] Reji Yan MD [address] [place] [address] [place] [address] 01/15/2024 6:10 PM EDT Pharmacy Pharmacy, [facility] [address] [facility] [place] [address] [facility] [address] [facility] [place] [address] Health Maintenance Due Date Last Done Comments Cologuard 01/13/1996 Fecal Occult Blood Test 01/13/1996 Sigmoidoscopy 01/13/1996 Zoster Vaccines (3 of 3) 08/15/2020 020, 06/20/2020, 12/30/2014 Depression Screening 01/07/2024 01/06/2023 Mammogram 10/09/2024 10/09/2023, 02/0 04/2023, 10/07/2022, Additional history exists GFR 11/06/2024 11/06/2023, [...] Not on filedocumented as of this encounter Visit Diagnoses Diagnosis Acute deep vein thrombosis (DVT) of other vein of lower extremity, unspecified laterality (HCC)- Primary Acute deep vein thrombosis (DVT) of other vein of lower extremity, unspecified laterality (HCC)- Primary documented in this encounter Care Teams Certified Diabetes Educator Relationship Specialty Start Date End Date Sara Schwarz MD [address] [place] [address] [place] [address] PCP - General Family Medicine 07/13/21 documented as of this encounter
--- OUTSIDE RECORDS SUMMARY | 2024-01-01 23:18 | External Medical Summary | Summary of Care ---
Author Name Unknown Organization [facility] Address [address] [place] [address] Phone [phone] Care Team Providers Care Cash Controller Name Role Phone Sara Schwarz MD Primary Care Prov ider Reason for Visit * Reason Comments Dosage Adjustment Via Phone (anticoag Cl inic) Encounter Details Date Type Department Care Team (Latest Contact Info) Description 12/29/2023 5:30 PM EDT Anticoagulation Pharmacy, [address] [place] [address] [place] [address] Acute deep vein thrombosis (DVT) of other [...] region,Polyneuropat hy in other diseases classified elsewhere ([facility]) Take 1 Tablet by mouth at bedtime. In addition to 50 mg tablet 90 Tablet 3 3 Active Mfolj-6-dbhr Ethyl Esters 1 GM Oral CapsuleIndications: Dyslipidemia, [...] left lower extremity through tibia and fibula ([facility]),Chronic bilateral back pain, unspecified back location Take [...] 80 mg before bedtime. Per hospital discharge [id number]. 0 3 Active Zinc 15 66 MG [...] mRNA, LNP-s, No Pre serve, 2-Dose Series ([employer]) 01/19/2021,11/28/2020 COVID-19, MRNA-LNP, 23-24, P F, 30 MCG/0.3 mL, 12 YRS AND ABOVE, IM ([employer]) 07/14/2023 Covid-19 Adenovirus, [place] 1 Vector, 2-dose Series, PF ([employer]) 08/10/2021 Covid-19, Mrna, Lnp-s, Pf, B ivalent, 30 Mcg, IM, 12 yrs and above ([employer]) 09/06/2022 PPD 12/12/2023,12/02/2023,07/21/2021 Pneumococcal Conjugate Vacc, 13 [...] this encounter Progress Notes * Janae Khan, [facility] - 12/29/2023 12:38 PM EDT Images from the original note were not included. Medication Therapy Disease Management - Anticoagulation Patient: Eda Estrada | : 1950 Subjective Contacts Type Contact Phone/Fax 12/29/2023 01:22 PM EDT Phone (Outgoing) Eda Estrada (Self) [phone] (H) Spoke to Patient 12/29/2023 01:22 PM EDT Phone (Outgoing) [facility] [phone] Patient-Reported Symptoms: Patient Findings Negatives: Signs/symptoms of [...] 12/31 at [facility]. Called and spoke with [facility]. They are seeing the patient on 12/31 and 01/04, agreeable to obtain INR on 01/04 as patient has inperson office visit on12/31. Description Takes warfarin AM NEUROUROLOGIST dosing 6 mg TuTh, 4.5 mg all other days Faxed orders to [facility] at [phone]. # [phone] Ok to use fingerstick Dx: Acute DVT I82.409 Ordering provider: Sara Schwarz MD Please fax INR results to [facility] at [phone] [facility] can be reached at with any questions or problems Janae Khan RP Clinical Pharmacist 12/29/2023, 12:38 PM * Bro Gutierrez morphology teacher - 12/29/2023 12:20 PM EDT Verbal results from Joanna at [facility]: 4./ -- will fax hard copy. documented in this encounter Plan of Treatment Upcoming Encounters Date Type Department Care Team (Late st Contact Info) Description 01/01/2024 1:40 PM EDT Anticoagulation Pharmacy, [address] [place] [address] [place] [address] 01/01/2024 2:00 PM EDT Office Visit Family Medicine [address] [place] [phone] Reji Yan MD [address] [place] [address] [place] [address] 01/15/2024 6:10 PM EDT Pharmacy Pharmacy, [facility] [place] [address] [facility] [address] [place] [address] Health Maintenance Due Date Last Done Comments [...] Primary documented in this encounter Care Teams Cash Controller Relationship Specialty Start Date End Date Sara Schwarz MD [address] [place] [address] [place] [address] PCP - General Family Medicine 07/13/21 documented as of this encounter"
--- OUTSIDE RECORDS SUMMARY | 2024-01-01 23:18 | External Medical Summary | Summary of Care ---
Author Name Unknown Organization [facility] Address [address] [place] [address] Phone [phone] Care Team Providers Care Manager Beverage Name Role Phone Sara Schwarz MD Primary Care Prov ider Encounter Details Date Type Department Care Team (Late st Contact Info) Description 12/27/2023 Telephone Pharmacy, [address] [place], [place] [phone] Janae Khan, [facility] [address] [place], [place] [phone] Allergies Active Allergy Reactions Criticality Noted Date Comments Cetirizine & Related 10/13/2003 zyrtec-much gi distress Vancomycin High 07/20/2020 Other reaction(s): kidney issues, unknown, WORSENING RENAL FUNCTION documented as of this encounter (statuses as of 12/27/2023) Medications Medication Sig Dispensed Refills Start Date [...] region,Polyneuropat hy in other diseases classified elsewhere ([facility]) Take 1 Tablet by mouth at bedtime. In addition to 50 mg tablet 90 Tablet 3 3 Active Oyqzf-5-tecr Ethyl Esters 1 GM Oral CapsuleIndications: Dyslipidemia, [...] left lower extremity through tibia and fibula ([facility]),Chronic bilateral back pain, unspecified back location Take [...] 80 mg before bedtime. Per hospital discharge [id number]. 0 3 Active Zinc 15 66 MG [...] as of this encounter (statuses as of 12/27/2023) Active Problems Problem Noted Date Diagnosed Date [...] as of this encounter (statuses as of 12/27/2023) Resolved Problems Problem Noted Date Diagnosed Date [...] as of this encounter (statuses as of 12/27/2023) Immunizations Name Administration Dates Next Due COVID-19 mRNA, LNP-s, No Pre serve, 2-Dose Series (Everdream) 01/19/2021,11/28/2020 COVID-19, MRNA-LNP, 23-24, P F, 30 MCG/0.3 mL, 12 YRS AND ABOVE, IM (PFIZER-Comirnaty) 07/14/2023 Covid-19 Adenovirus, [place] 1 Vector, 2-dose Series, PF (Tabula) 08/10/2021 Covid-19, Mrna, Lnp-s, Pf, B ivalent, 30 Mcg, IM, 12 yrs and above (Pfizer) 09/06/2022 Pneumococcal Conjugate Vacc, 13 Valent (Prevnar) 09/01/2016 [...] encounter Miscellaneous Notes * Telephone Encounter - Janae Khan RPh [...] Janae Khan RPh, PharmD Clinical Pharmacist - Real Estate Internship [facility] 12/27/2023, 5:02 PM [phone] * Telephone Encounter - Janae Khan RPh - 12/27/2023 4:37 PM EDT Attempted to contact [facility] ([phone]). Left message with nursing regarding nextvisit. Will look towards obtaining INR at that time as patient cancelled 12/25 HD appointment. Janae Khan RPh, PharmD Clinical Pharmacist - Real Estate Internship [facility] 12/27/2023, 4:38 PM [phone] documented in this encounter Plan of Treatment Upcoming Encounters Date Type Department Care Team (Late st Contact Info) Description 12/29/2023 5:30 PM EDT Anticoagulation Pharmacy, [address] [place] [address] [place] [address] 01/01/2024 1:40 PM EDT Anticoagulation Pharmacy, [address] [place] [address] [place] [address] 01/01/2024 2:00 PM EDT Office Visit Family Medicine [address] [place] [phone] Reji Yan MD [address] [place] [address] [place] [address] 01/02/2024 8:00 AM EDT Office Visit Family [address] [place] [address] Deedee Campoverde PA-C [address] [place] [address] [place] [address] 01/02/2024 9:00 AM EDT Anticoagulation Pharmacy, [address] [place] [address] [place] [address] 01/15/2024 6:10 PM EDT Pharmacy Pharmacy, [facility] [address] [place] [address] [facility] [address] [place] [address] Health Maintenance Due Date Last Done Comments Cologuard 01/13/1996 Fecal Occult Blood Test 01/13/1996 Sigmoidoscopy 01/13/1996 Zoster Vaccines (3 of 3) 08/15/2020 020, 06/20/2020, 12/30/2014 Depression Screening 01/07/2024 01/06/2023 Mammogram 10/09/2024 10/09/2023, 02/04/2023, 10/07/2022, Additional history exists GFR 11/06/2024 11/06/2023, 09/26, 07/07/2023, Additional history exists Albumin/Creatinine Ratio 05/10/2025 05/10/2022 Lipid Panel 07/14/2028 07/14/2023, 04/25, 05/25/2020, Additional history exists DTaP,Tdap,and Td Vaccines (3 - Td or Tdap) 12/20/2028 12/20/2018, 12/20/2018, 05/30/2008 DXA Scan 10/12/2029 10/12/2022, 10/26, [...] Primary documented in this encounter Care Teams Manager Beverage Relationship Specialty Start Date End Date Sara Schwarz MD [address] [place] [address] [place] [phone] PCP - General Family Medicine 07/13/21 documented as of this encounter
--- OUTSIDE RECORDS SUMMARY | 2024-01-01 23:18 | External Medical Summary | Summary of Care ---
Author Name Unknown Organization [facility] Address [address] [place] [address] Phone [phone] Care Team Providers Care Teacher Of The Visually Impaired Name Role Phone Sara Schwarz MD Primary Care Prov ider Encounter Details Date Type Department Care Team (Late st Contact Info) Description 12/27/2023 Telephone Pharmacy, [address] [place], [place] [phone] Janae Khan, [facility] [address] [place], [place] [phone] Allergies Active Allergy Reactions Criticality Noted Date Comments Cetirizine & Related 10/13/2003 zyrtec-much gi distress Vancomycin High 07/20/2020 Other reaction(s): kidney issues, unknown, WORSENING RENAL FUNCTION documented as of this encounter (statuses as of 12/28/2023) Medications Medication Sig Dispensed Refills Start Date [...] hy in other diseases classified elsewhere ([facility]) Take 1 Tablet by mouth at bedtime. In addition to 50 mg tablet 90 Tablet 3 3 Active Hqztr-5-lrlh Ethyl Esters 1 GM Oral CapsuleIndications: Dyslipidemia, [...] lower extremity through tibia and fibula ([facility]),Chronic bilateral back pain, unspecified back location [...] 80 mg before bedtime. Per hospital discharge [id number]. 0 3 Active Zinc 15 66 MG [...] as of this encounter (statuses as of 12/28/2023) Active Problems Problem Noted Date Diagnosed Date [...] as of this encounter (statuses as of 12/28/2023) Resolved Problems Problem Noted Date Diagnosed Date [...] as of this encounter (statuses as of 12/28/2023) Immunizations Name Administration Dates Next Due COVID-19 mRNA, LNP-s, No Pre serve, 2-Dose Series (DLS) 01/19/2021,11/28/2020 COVID-19, MRNA-LNP, 23-24, P F, 30 MCG/0.3 mL, 12 YRS AND ABOVE, IM (PFIZER-Comirnaty) 07/14/2023 Covid-19 Adenovirus, [place] 1 Vector, 2-dose Series, PF ([employer]ens) 08/10/2021 Covid-19, Mrna, Lnp-s, Pf, B ivalent, [...] EDT We need her Discharge Summary from [facility] from October to understand her current status [...] Janae Khan RPh, PharmD Clinical Pharmacist - Campus Director [facility] 12/27/2023, 5:02 PM [phone] * Telephone Encounter - Janae Khan RPh - 12/27/2023 4:37 PM EDT Attempted to contact [facility] ([phone]). Left message with nursing regarding nextvisit. Will look towards obtaining INR at that time as patient cancelled / HD appointment. Janae Khan RP, PharmD Clinical Pharmacist - Campus Director [facility] 12/27/2023, 4:38 PM [phone] documented in this encounter Plan of Treatment Upcoming Encounters Date Type Department Care Team (Late st Contact Info) Description 12/29/2023 5:30 PM EDT Anticoagulation Pharmacy, [address] [place] [address] [place] [address] 01/01/2024 1:40 PM EDT Anticoagulation Pharmacy, [address] [place] [address] [place] [address] 01/01/2024 2:00 PM EDT Office Visit [address] [place] [address] Reji Yan MD [address] [place] [address] [place] [address] 01/02/2024 8:00 AM EDT Office Visit [address] [place] [phone] Deedee Campoverde PA-C [address] [place] [address] [place] [address] 01/02/2024 9:00 AM EDT Anticoagulation Pharmacy, [address] [place] [address] [place] [address] 01/15/2024 6:10 PM EDT Pharmacy Pharmacy, [facility] [address] [place] [address] [facility] [address] [place] [address] Health Maintenance Due Date Last Done Comments Cologuard 01/13/1996 Fecal Occult Blood Test 01/13/1996 Sigmoidoscopy 01/13/1996 Zoster Vaccines (3 of 3) 08/15/2020 020, 06/20/2020, 12/30/2014 Depression Screening 01/07/2024 01/06/2023 Mammogram 10/09/2024 10/09/2023, 04/2023, 10/07/2022, Additional history exists GFR 11/06/2024 [...] Primary documented in this encounter Care Teams Teacher Of The Visually Impaired Relationship Specialty Start Date End Date Sara Schwarz MD [address] [place] [address] [place] [phone] PCP - General Family Medicine 07/13/21 documented as of this encounter
--- OUTSIDE RECORDS SUMMARY | 2024-01-01 23:18 | External Medical Summary | Summary of Care ---
Author Name Unknown Organization [facility] Address [address] [place] [address] Phone [phone] Care Team Providers Care Diesel Powerplant Mechanic Name Role Phone Sara Schwarz MD Primary Care Prov ider Encounter Details Date Type Department Care Team (Late st Contact Info) Description 12/27/2023 Telephone Pharmacy, [address] [place], [place] [phone] Janae Khan, [facility] [address] [place], [place] [phone] Allergies Active Allergy Reactions Criticality Noted Date [...] region,Polyneuropat hy in other diseases classified elsewhere ([facility]) Take 1 Tablet by mouth at bedtime. In addition to 50 mg tablet 90 Tablet 3 3 Active Kipht-2-cvuc Ethyl Esters 1 GM Oral CapsuleIndications: Dyslipidemia, [...] left lower extremity through tibia and fibula ([facility]),Chronic bilateral back pain, unspecified back location [...] 80 mg before bedtime. Per hospital discharge [id number]. 0 3 Active Zinc 15 66 MG [...] mRNA, LNP-s, No Pre serve, 2-Dose Series (TuTanda) 01/19/2021,11/28/2020 COVID-19, MRNA-LNP, 23-24, P F, 30 MCG/0.3 mL, 12 YRS AND ABOVE, IM ([email or web address].[email or web address]) 07/14/2023 Covid-19 Adenovirus, [place] 1 Vector, 2-dose Series, PF (RUSBASE) 08/10/2021 Covid-19, Mrna, Lnp-s, Pf, B ivalent, [...] to make aware for 12/31. Janae Khan [facility], PharmD Clinical Pharmacist - Accordion Maker Medication Therapy [facility] Management [facility] 12/29/2023, 12:57 PM [phone] * Telephone Encounter - Sara Schwarz MD - 12/28/2023 12:21 PM EDT We need her Discharge Summary from [facility] from October to understand her current [...] Janae Khan RPh, PharmD Clinical Pharmacist - Accordion Maker [facility] 12/27/2023, 5:02 PM [phone] * Telephone Encounter - Janae Khan RPh - 12/27/2023 4:37 PM EDT Attempted to contact [facility] ([phone]). Left message with nursing regarding nextvisit. Will look towards obtaining INR at that time as patient cancelled 12/25 HD appointment. Janae Khan RPh, PharmD Clinical Pharmacist - Accordion Maker [facility] 12/27/2023, 4:38 PM [phone] documented in this encounter Plan of Treatment Upcoming Encounters Date Type Department Care Team (Latest Contact Info) Description 12/29/2023 5:30 PM EDT Anticoagulation Pharmacy, [address] [place] [address] [place] [address] Acute deep vein thrombosis (DVT) of other vein of lower extremity, unspecified laterality (HCC)* 01/01/2024 1:40 PM EDT Anticoagulation Pharmacy, [address] [place] [address] [place] [address] 01/01/2024 2:00 PM EDT Office Visit [address] [place] [phone] Reji Yan MD [address] [place] [address] [place] [address] 01/02/2024 8:00 AM EDT Office Visit [address] [place] [phone] Deedee Campoverde PA-C [address] [place] [address] [place] [address] 01/02/2024 9:00 AM EDT Anticoagulation Pharmacy, [address] [place] [address] [place] [address] 01/15/2024 6:10 PM EDT Pharmacy Pharmacy, [facility] [address] [facility] [place] [address] [facility] [address] [place] [address] Health Maintenance Due Date Last Done Comments [...] Primary documented in this encounter Care Teams Diesel Powerplant Mechanic Relationship Specialty Start Date End Date Sara Schwarz MD [address] [place] [address] [place] [address] PCP - General Family Medicine 07/13/21 documented as of this encounter
--- OUTSIDE RECORDS SUMMARY | 2024-01-01 23:18 | External Medical Summary | Summary of Care ---
Author Name Unknown Organization [facility] Address [address] [place] [address] Phone [phone] Care Team Providers Care Chin Strap Cutter Name Role Phone Sara Schwarz MD Primary Care Prov ider Encounter Details Date Type Department Care Team (Late st Contact Info) Description 12/28/2023 Orders Only PATIENT PORTAL DO NOT DELETE THIS DEPT USED BY [place] [id number] Allergies Active Allergy Reactions Criticality Noted Date [...] hy in other diseases classified elsewhere ([facility]) Take 1 Tablet by mouth at bedtime. In addition to 50 mg tablet 90 Tablet 3 3 Active Kqqjx-7-rqkd Ethyl Esters 1 GM Oral CapsuleIndications: Dyslipidemia, [...] lower extremity through tibia and fibula ([facility]),Chronic bilateral back pain, unspecified back location Take [...] 80 mg before bedtime. Per hospital discharge [id number]. 0 3 Active Zinc 15 66 MG [...] mRNA, LNP-s, No Pre serve, 2-Dose Series (Mixertech) 01/19/2021,11/28/2020 COVID-19, MRNA-LNP, 23-24, P F, 30 MCG/0.3 mL, 12 YRS AND ABOVE, IM (Eqalix-Comirnaty) 07/14/2023 Covid-19 Adenovirus, [place] 1 Vector, 2-dose Series, PF (iGuidersaZenMusiwave) 08/10/2021 Covid-19, Mrna, Lnp-s, Pf, B ivalent, [...] Influenza, Trivalen t, Adjuvanted, 65+ yrs 07/12/2019 TDAP (age 10 and older)(Boostrix) 12/20/2018 TDAP [...] on file documented as of this encounter Plan of Treatment Upcoming Encounters Date Type Department Care Team (Late st Contact Info) Description 12/29/2023 5:30 PM EDT Anticoagulation Pharmacy, [address] [place] [address] [place] [address] 01/01/2024 1:40 PM EDT Anticoagulation Pharmacy, [address] [place] [address] [place] [address] 01/01/2024 2:00 PM EDT Office Visit Family [address] [place] [phone] Reji Yan MD [address] [place] [address] [place] [address] 01/02/2024 8:00 AM EDT Office Visit Family [address] [place] [phone] Deedee Campoverde PA-C [address] [place] [address] [place] [address] 01/02/2024 9:00 AM EDT Anticoagulation Pharmacy, [address] [place] [address] [place] [address] 01/15/2024 6:10 PM EDT Pharmacy Pharmacy, [facility] [address] [place] [address] [facility] [address] [place] [address] Health Maintenance Due Date Last Done Comments [...] Not on filedocumented as of this encounter Care Teams Chin Strap Cutter Relationship Specialty Start Date End Date Sara Schwarz MD [address] [place] [address] [place] [address] PCP - General Family Medicine 07/13/21 documented as of this encounter
--- OUTSIDE RECORDS SUMMARY | 2024-01-01 23:18 | External Medical Summary | Summary of Care ---
Author Name Unknown Organization [facility] Address [address] [place] [address] Phone [phone] Care Team Providers Care Special Education Resource Teacher Name Role Phone Sara Schwarz MD Primary Care Prov ider Encounter Details Date Type Department Care Team (Late st Contact Info) Description 12/27/2023 Telephone Pharmacy, [address] [place], [place] [phone] Janae Khan, [facility] [address] [place], [place] [phone] Allergies Active Allergy Reactions Criticality Noted Date [...] in other diseases classified elsewhere ([facility]) Take 1 Tablet by mouth at bedtime. In addition to 50 mg tablet 90 Tablet 3 3 Active Gnjal-8-groj Ethyl Esters 1 GM Oral CapsuleIndications: Dyslipidemia, [...] extremity through tibia and fibula ([facility]),Chronic bilateral back pain, unspecified back location [...] 80 mg before bedtime. Per hospital discharge [id number]. 0 3 Active Zinc 15 66 MG [...] mRNA, LNP-s, No Pre serve, 2-Dose Series (iMedia.fm) 01/19/2021,11/28/2020 COVID-19, MRNA-LNP, 23-24, P F, 30 MCG/0.3 mL, 12 YRS AND ABOVE, IM (PFIZER-Comirnaty) 07/14/2023 Covid-19 Adenovirus, [place] 1 Vector, 2-dose Series, PF (The Medical Memory) 08/10/2021 Covid-19, Mrna, Lnp-s, Pf, B ivalent, [...] 12/27/2023 4:37 PM EDT Attempted to contact [facility] ([phone]). Left message with nursing regarding nextvisit. Will look towards obtaining INR at that time as patient cancelled 12/25 HD appointment. Janae Khan RPh, PharmD Clinical Pharmacist - Automobile Body Worker Medication Therapy Disease Management Clinic 12/27/2023, 4:38 PM [phone] documented in this encounter Plan of Treatment Upcoming Encounters Date Type Department Care Team (Late st Contact Info) Description 01/01/2024 1:40 PM EDT Anticoagulation Pharmacy, [address] [place] [address] [place] [address] 01/01/2024 2:00 PM EDT Office Visit Family Medicine [address] [place] [phone] Reji Yan MD [address] [place] [address] [place] [address] 01/02/2024 8:00 AM EDT Office Visit Family Medicine [address] [place] [phone] Deedee Campoverde PA-C [address] [place] [address] [place] [address] 01/02/2024 9:00 AM EDT Anticoagulation Pharmacy, [address] [place] [address] [place] [address] 01/15/2024 6:10 PM EDT Pharmacy Pharmacy, [facility] [address] [facility] [place] [address] [facility] [address] [facility] [place] [address] Health Maintenance Due Date Last Done Comments [...] Primary documented in this encounter Care Teams Special Education Resource Teacher Relationship Specialty Start Date End Date Sara Schwarz MD [address] [place] [address] [place] [phone] PCP - General Family Medicine 07/13/21 documented as of this encounter
--- OUTSIDE RECORDS SUMMARY | 2024-01-01 23:18 | External Medical Summary | Summary of Care ---
Author Name Unknown Organization [facility] Address [address] [place] [address] Phone [phone] Care Team Providers Care Drop Board Man Name Role Phone Sara Schwarz MD Primary Care Prov ider Encounter Details Date Type Department Care Team (Late st Contact Info) Description 12/25/2023 Result Scan Unspecified Department Christy Rehman, [facility] [address] [facility] [place] [address] <No scans attached> Allergies Active Allergy Reactions Criticality Noted Date [...] region,Polyneuropat hy in other diseases classified elsewhere ([facility]) Take 1 Tablet by mouth at bedtime. In addition to 50 mg tablet 90 Tablet 3 3 Active Jruyw-4-sydu Ethyl Esters 1 GM Oral CapsuleIndications: Dyslipidemia, [...] left lower extremity through tibia and fibula ([facility]),Chronic bilateral back pain, unspecified back [...] 80 mg before bedtime. Per hospital discharge [id number]. 0 3 Active Zinc 15 66 MG [...] mRNA, LNP-s, No Pre serve, 2-Dose Series (OFERTALDIA) 01/19/2021,11/28/2020 COVID-19, MRNA-LNP, 23-24, P F, 30 MCG/0.3 mL, 12 YRS AND ABOVE, IM (PFIZER-Comirnaty) 07/14/2023 Covid-19 Adenovirus, [place] 1 Vector, 2-dose Series, PF (Dubset MediaaZenMobile Sorcery) 08/10/2021 Covid-19, Mrna, Lnp-s, Pf, B ivalent, [...] Description 01/01/2024 1:40 PM EDT Anticoagulation Pharmacy, [address] [place] [address] [place] [address] 01/01/2024 2:00 PM EDT Office Visit [address] [place] [address] [place] [address] Reji Yan MD [address] [place] [address] [place] [address] 01/02/2024 8:00 AM EDT Office Visit [address] [place] [address] Deedee Campoverde PA-C [address] [place] [address] [place] [address] 01/02/2024 9:00 AM EDT Anticoagulation Pharmacy, [address] [place] [address] [place] [address] 01/15/2024 6:10 PM EDT Pharmacy Pharmacy, [facility] [address] [place] [address] [facility] [address] [place] [address] Health Maintenance Due Date Last Done Comments [...] Name Priority Date/Time Associated Diagnosis Comments OUTSIDE LAB RESULTS 12/25/2023 documented in this encounter Results * OUTSIDE LAB RESULTS (12/25/2023) 12/25/2023 Christy Rehman [facility] documented in this encounter Care Teams Drop Board Man Relationship Specialty Start Date End Date Sara Schwarz MD [address] [place] [address] [place] [phone] PCP - General Family Medicine 07/13/21 documented as of this encounter
--- OUTSIDE RECORDS SUMMARY | 2024-01-01 23:18 | External Medical Summary | Summary of Care ---
Author Name Unknown Organization [facility] Address [address] [place] [address] Phone [phone] Care Team Providers Care Salad Chef Name Role Phone Sara Schwarz MD Primary Care Prov ider Reason for Visit * Reason Comments Dosage Adjustment Via Phone (anticoag Cl inic) Encounter Details Date Type Department Care Team (Latest Contact Info) Description 12/29/2023 5:30 PM EDT Anticoagulation Pharmacy, [address] [place] [address] [place] [address] Acute deep vein thrombosis (DVT) of other [...] mg tablet 90 Tablet 3 3 Active Mbggd-3-iwse Ethyl Esters 1 GM Oral CapsuleIndications: Dyslipidemia, [...] 80 mg before bedtime. Per hospital discharge [id number]. 0 3 Active Zinc 15 66 MG [...] mRNA, LNP-s, No Pre serve, 2-Dose Series (Bi[employer]) 01/19/2021,11/28/2020 COVID-19, MRNA-LNP, 23-24, P F, 30 MCG/0.3 mL, 12 YRS AND ABOVE, IM (Loom Decor-ComirNexDefense) 07/14/2023 Covid-19 Adenovirus, [place] 1 Vector, 2-dose Series, PF (GetMaid) 08/10/2021 Covid-19, Mrna, Lnp-s, Pf, B ivalent, 30 Mcg, IM, 12 yrs and above (Bi[employer]) 09/06/2022 PPD 12/12/2023,12/02/2023,07/21/2021 Pneumococcal Conjugate Vacc, 13 [...] PM EDT Phone (Outgoing) Eda Estrada (Self) [phone] (H) Spoke to Patient 12/29/2023 01:22 PM EDT Phone (Outgoing) [facility] [phone] Patient-Reported Symptoms: Patient Findings Negatives: Signs/symptoms of [...] despite holding warfarin. No discharge summary available. Discussed with PCP in 12/26 TE. Possible liver dysfunction? Will plan to further discuss continuation of anticoagulation. Called and spoke with patient to confirm no warfarin has been taken. Will continue holding through the weekend and repeat INR 12/31 at [facility]. Called and spoke with [facility]. They are seeing the patient on 12/31 and 01/04, agreeable to obtain INR on 01/04 as patient has inperson office visit on12/31. Description Takes warfarin AM CAR RENTAL AGENT dosing 6 mg TuTh, 4.5 mg all other days Faxed orders to [facility] at [phone]. # [phone] Ok to use fingerstick Dx: Acute DVT I82.409 Ordering provider: Sara Schwarz MD Please fax INR results to [facility] at [phone] [facility] can be reached at with any questions or problems Janae Khan [facility] Clinical Pharmacist 12/29/2023, 12:38 PM * Bro Gutierrez siding applicator - 12/29/2023 12:20 PM EDT Verbal results from Joanna at [facility]: 4./ -- will fax hard copy. documented in this encounter Plan of Treatment Upcoming Encounters Date Type Department Care Team (Late st Contact Info) Description 01/01/2024 1:40 PM EDT Anticoagulation Pharmacy, [address] [place] [address] [place] [address] 01/01/2024 2:00 PM EDT Office Visit Family Medicine [address] [place] [address] PilReji alvarado MD [address] [place] [address] [place] [address] 01/15/2024 6:10 PM EDT Pharmacy Pharmacy, [facility] [address] [facility] [place] [address] [facility] [address] [place] [address] Health Maintenance Due Date Last Done Comments [...] Primary documented in this encounter Care Teams Salad Chef Relationship Specialty Start Date End Date Sara Schwarz MD [address] [place] [address] [place] [address] PCP - General Family Medicine 07/13/21 documented as of this encounter"
--- OUTSIDE RECORDS SUMMARY | 2024-01-01 23:18 | External Medical Summary | Summary of Care ---
Author Name Unknown Organization [facility] Address [address] [place] [address] Phone [phone] Care Team Providers Care Desktop Engineer Name Role Phone Sara Schwarz MD Primary Care Prov ider Encounter Details Date Type Department Care Team (Late st Contact Info) Description 12/27/2023 Telephone Pharmacy, [address] [place], [place] [phone] Janae Khan, [facility] [address] [place], [place] [id number] Allergies Active Allergy Reactions Criticality Noted Date [...] in other diseases classified elsewhere ([facility]) Take 1 Tablet by mouth at bedtime. In addition to 50 mg tablet 90 Tablet 3 3 Active Zcgwz-6-sein Ethyl Esters 1 GM Oral CapsuleIndications: Dyslipidemia, [...] extremity through tibia and fibula ([facility]),Chronic bilateral back pain, unspecified back [...] 80 mg before bedtime. Per hospital discharge [id number]. 0 3 Active Zinc 15 66 MG [...] mRNA, LNP-s, No Pre serve, 2-Dose Series (Linkage) 01/19/2021,11/28/2020 COVID-19, MRNA-LNP, 23-24, P F, 30 MCG/0.3 mL, 12 YRS AND ABOVE, IM (PFIZER-Comirnaty) 07/14/2023 Covid-19 Adenovirus, [place] 1 Vector, 2-dose Series, PF (Click4Ride) 08/10/2021 Covid-19, Mrna, Lnp-s, Pf, B ivalent, [...] EDT We need her Discharge Summary from [facility] from October to understand her current [...] Janae Khan RPh, PharmD Clinical Pharmacist - Global Supply Chain Director [facility] 12/27/2023, 5:02 PM Ph.[phone] * Telephone Encounter - Janae Khan RPh - 12/27/2023 4:37 PM EDT Attempted to contact [facility] ([phone]). Left message with nursing regarding nextvisit. Will look towards obtaining INR at that time as patient cancelled / HD appointment. Janae Khan RP, PharmD Clinical Pharmacist - Global Supply Chain Director [facility] 12/27/2023, 4:38 PM Ph.[phone] documented in this encounter Plan of Treatment Upcoming Encounters Date Type Department Care Team (Late st Contact Info) Description 12/29/2023 5:30 PM EDT Anticoagulation Pharmacy, [address] [place] [address] [place] [address] 01/01/2024 1:40 PM EDT Anticoagulation Pharmacy, [address] [place] [address] [place] [address] 01/01/2024 2:00 PM EDT Office Visit [address] [place] [phone] Reji Yan MD [address] [place] [address] [place] [address] 01/02/2024 8:00 AM EDT Office Visit [address] [place] [phone] Deedee Campoverde PA-C [address] [place] [address] [place] [address] 01/02/2024 9:00 AM EDT Anticoagulation Pharmacy, [address] [place] [address] [place] [address] 01/15/2024 6:10 PM EDT Pharmacy Pharmacy, [facility] [address] [place] [address] [facility] [address] [place] [address] Health Maintenance Due Date Last Done Comments [...] Primary documented in this encounter Care Teams Desktop Engineer Relationship Specialty Start Date End Date Sara Schwarz MD [address] [place] [address] [place] [phone] PCP - General Family Medicine 07/13/21 documented as of this encounter
--- OUTSIDE RECORDS SUMMARY | 2024-01-01 23:19 | External Medical Summary | Summary of Care ---
Author Name Unknown Organization [facility] Address [address] [place] [address] Phone [phone] Care Team Providers Care Inbound Customer Service Representative Name Role Phone Vijaya Garcia MD Primary Care Prov ider Reason for Visit * Reason Comments eRx-Medication Refill Encounter Details Date Type Department Care Team (Late st Contact Info) Description 12/24/2023 Refill Family Medicine [address] [phone] Vijaya Garcia MD [address] [place], [place] [address] [phone] HTN, goal below 140/90; Cervicalgia; DDD (degenerative disc disease), cervical; Spasm of muscle Allergies Active Allergy Reactions Criticality Noted Date Comments Cetirizine & Related 10/13/2003 zyrtec-much gi distress Vancomycin High 07/20/2020 Other reaction(s): kidney issues, unknown, WORSENING RENAL FUNCTION documented as of this encounter (statuses as of 12/25/2023) Medications Medication Sig Dispensed Refills Start Date [...] 60 to 180 days 1 Each 1 03/15/20 22 Active Iron 325 (65 Fe) MG Oral Tablet Take by mouth. 0 Active Vitamin D 25 MCG (1000 UT) Oral Tablet Take by mouth. 0 Active Amitriptyline HCl 25 MG Oral Tablet (Elavil)Indication s:Other osteoarthritis of spine, lumbar region,Polyneuropa thy in other diseases classified elsewhere ([facility]) Take 1 Tablet by mouth at bedtime. In addition to 50 mg tablet 90 Tablet 3 02/10/20 23 Active Lbkhu-5-nnys Ethyl Esters 1 GM Oral CapsuleIndications :Dyslipidemia, goal LDL below 100 Take 4 capsules daily by mouth 360 Capsule 11 02/24/20 23 Active Amitriptyline HCl 50 MG Oral Tablet (Elavil) TAKE 1 TABLET BY MOUTH EVERYDAY AT BEDTIME 90 Tablet 3 06/02/20 23 Active Pregabalin 150 MG Oral Capsule (Lyrica) Take 1 Capsule by mouth in the morning and 1 Capsule at noon and 1 Capsule before bedtime. 90 Capsule 5 07/18/20 23 Active busPIRone HCl 10 MG Oral Tablet (Buspar)Indication s:Anxiety TAKE 1 TABLET BY MOUTH IN THE MORNING AND BEFORE BEDTIME 180 Tablet 3 07/19/20 23 Active Probiotic Product Oral Capsule Take 1 Capsule by mouth in the morning. 3,000 mmu cells daily with meals . 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 60 Tablet 0 08/01/20 23 Active Alendronate Sodium 70 MG Oral Tablet (Fosamax)Indicatio ns:Age-related osteoporosis without current pathological fracture TAKE 1 TABLET BY MOUTH ONCE A WEEK. WITH 8 OZ. WATER 30 MINUTES BEFORE FIRST MEAL OF THE DAY REMAIN UPRIGHT FOR 30 MIN AFTER TAKING 12 Tablet 1 08/28/20 23 Active Atorvastatin Calcium 20 MG Oral Tablet (Lipitor)Indicatio ns:Dyslipidemia, goal LDL below 100 TAKE 1 TABLET BY MOUTH EVERY DAY IN THE EVENING 90 Tablet 3 09/03/20 23 Active Enoxaparin Sodium 80 MG/0.8ML Injection Solution Prefilled Syringe (Lovenox) Inject 80 mg under the skin in the morning and 80 mg before bedtime. Per hospital discharge [id number]. 0 09/09/20 23 Active Zinc 15 66 MG Oral Tablet (Zinc Sulfate) Take by mouth once. Patient unsure dosage 0 Active Losartan Potassium 25 MG Oral Tablet (Cozaar)Indication s:HTN, goal below 140/90 TAKE 1 TABLET BY MOUTH EVERY DAY IN THE MORNING 90 Tablet 1 09/19/20 23 Active HYDROcodone-Acetam inophen 5-325 MG Oral TabletIndications: Amputation stump infection (HCC) Take 1 Tablet by mouth 2 times a day as needed for Pain, Mild or Pain, Breakthrough. 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 Brand necessary. 30 Tablet 0 11/04/19 24 Active amLODIPine Besylate 10 MG Oral Tablet (Norvasc)Indicatio ns:HTN, goal below 140/90 TAKE 1 TABLET BY MOUTH EVERY DAY IN THE MORNING 90 Tablet 1 12/25/19 24 Active tiZANidine HCl 4 MG Oral Tablet (Zanaflex)Indicati ons:Cervicalgia,DD D (degenerative disc disease), cervical,Spasm of muscle TAKE 1/2-1 TABLET BY MOUTH DAILY NEEDED FOR SPAMS 90 Tablet 1 12/25/19 24 Active amLODIPine Besylate 10 MG Oral Tablet (Norvasc)Indicatio ns:HTN, goal below 140/90 TAKE 1 TABLET BY MOUTH EVERY DAY IN THE MORNING 90 Tablet 1 01/21/20 23 024 Discontinued tiZANidine HCl 4 MG Oral Tablet (Zanaflex)Indicati ons:Cervicalgia,DD D (degenerative disc disease), cervical,Spasm of muscle TAKE 1/2-1 TABLET BY MOUTH DAILY NEEDED FOR SPAMS 90 Tablet 1 06/27/20 23 024 Discontinued documented as of this encounter (statuses as of 12/25/2023) Active Problems Problem Noted Date Diagnosed Date [...] as of this encounter (statuses as of 12/25/2023) Resolved Problems Problem Noted Date Diagnosed Date [...] as of this encounter (statuses as of 12/25/2023) Immunizations Name Administration Dates Next Due COVID-19 mRNA, LNP-s, No Pre serve, 2-Dose Series (mimoOn) 01/19/2021,11/28/2020 COVID-19, MRNA-LNP, 23-24, P F, 30 MCG/0.3 mL, 12 YRS AND ABOVE, IM (Shelby[employer] SolutionsirAutoAlert) 07/14/2023 Covid-19 Adenovirus, [place] 1 Vector, 2-dose Series, PF (Anaphore) 08/10/2021 Covid-19, Mrna, Lnp-s, Pf, B ivalent, 30 Mcg, IM, 12 yrs and above (mimoOn) 09/06/2022 Pneumococcal Conjugate Vacc, 13 Valent (Prevnar) [...] encounter Miscellaneous Notes * Telephone Encounter - Vijaya Garcia MD - 12/25/2023 10:47 AM EDTSigned Prescriptions: Disp Refills amLODIPine Besylate 10 MG Oral Tablet (Nor*90 Tab*1 Sig: TAKE 1 TABLET BY MOUTH EVERY DAY IN THE MORNING Authorizing Provider: VIJAYA GARCIA Ordering User: WENDIE FARRELL tiZANidine HCl 4 MG Oral Tablet (Zanaflex) 90 Tab*1 Sig: TAKE 1/2-1 TABLET BY MOUTH DAILY NEEDED FOR SPAMS Authorizing Provider: VIJAYA GARCIA< BR> * Telephone Encounter - Wendie Farrell RPh - 12/25/2023 10:26 AM EDTPending Prescriptions: Disp Refills tiZANidine HCl 4 MG Oral Tablet (Zanaflex) 90 Tab*1 Sig: TAKE 1/2-1 TABLET BY MOUTH DAILY NEEDED FOR SPAMS Signed Prescriptions: Disp Refills amLODIPine Besylate 10 MG Oral Tablet (Nor*90 Tab*1 Sig: TAKE 1 TABLET BY MOUTH EVERY DAY IN THE MORNING Authorizing Provider: VIJAYA GARCIA Ordering User: WENDIE FARRELL * Telephone Encounter - Wendie Farrell RPh - 12/25/2023 10:26 AM EDT [facility] is currently not authorized to approve refills for the pended medication(s) per refill protocol. Please approve if appropriate. Thanks, Wendie Farrell PharmD Clinical Pharmacist Centralized Clinical Pharmacy Services ([facility]) [phone] 12/25/2023, 10:26 AM * Telephone Encounter - Wendie Farrell RPh - 12/25/2023 10:25 AM EDT Pending Prescriptions: Disp Refills amLODIPine Besylate 10 MG Oral Tablet (No*90 Tab*1 Sig: TAKE 1 TABLET BY MOUTH EVERY DAY IN THE MORNING tiZANidine HCl 4 MG Oral Tablet (Zanaflex*90 Tab*1 Sig: TAKE 1/2-1 TABLET BY MOUTH DAILY NEEDED FOR SPAMS Last Visit: 09/19/2023 (in office), Visit date not found (telemedicine) Next Visit: 12/26/2023 If no future appointments scheduled, and last appointment is greater than a year ago, please schedule patient for a follow-up appointment Last date the medication was ordered: 06/27/23 Pharmacy: [id number] [id number] [facility] Is this request for a controlled substance? No Urine Drug Screen: Results for orders placed or performed in visit on 05/10/22 PAIN MANAGEMENT DRUG PANEL, URINE W/ INTERPRETATION Result Value Compliance Interpretation Based on the medication information provided: The presence of oxycodone and oxymorphone is CONSISTENT with oxycodone use. The presence of hydrocodone, dihydrocodeine and hydromorphone is CONSISTENT with hydrocodone use. Amphetamines Screen, U Negative Benzodiazepines Screen, U Negative Cannabinoids Screen, U Negative Cocaine Metabolite Screen, U Negative Fentanyl Screen, U Negative Hydrocodone Screen, U Refer to confirmation results (A) Methadone Metabolite Screen, U Negative Morphine/Codeine Screen, U Refer to confirmation results (A) Oxycodone Screen, U Refer to confirmation results (A) Valid Interpretation Normal Creatinine, U 151 Narrative Cutoff Concentrations: Drug Level Amphetamines 500 ng/mL Benzodiazepines 100 ng/mL Cannabinoids 50 ng/mL Cocaine Metabolite 150 ng/mL Fentanyl 1 ng/mL Hydrocodone / Hydromorphone 300 ng/mL Methadone Metabolite 100 ng/mL Morphine / Codeine 300 ng/mL Oxycodone / Oxymorphone 100 ng/mL Screening results are presumptive and can only be used for medical purposes. Confirmatory testing is available upon request. Results for orders placed or performed in visit on 01/03/18 TOX SCREEN, URINE, W/ CONFIRMATION Result Value Amphetamine POSITIVE (A) Barbiturates NEGATIVE Benzodiazepines POSITIVE (A) Cannabinoids NEGATIVE Cocaine Metabolite NEGATIVE Morphine / Codeine POSITIVE (A) METHADONE METABOLITE NEGATIVE OXYCODONE POSITIVE (A) TOX COMMENT THE ABOVE SCREENING RESULTS ARE PRESUMPTIVE AND CAN ONLY BE USED FOR MEDICAL PURPOSES. POSITIVE RESULTS REFLEX TO CONFIRMATORY TESTING. Cutoff Concentration *Note: Due to a large number of results and/or encounters for the requested time period, some results have not been displayed. A complete set of results can be found in Results Review. Patient Phone Numbers Labs: Lab Results Component Value Date/Time CREAT 0.57 11/06/2023 12:00 AM CREAT 0.41 (L) 07/20/2021 06:38 AM CREAT 0.6 06/24/2020 03:30 PM POTASSIUM 3.7 11/06/2023 12:00 AM POTASSIUM 4.1 07/20/2021 06:38 AM POTASSIUM 3.9 06/24/2020 03:30 PM TSH 2.16 10/26/2022 01:45 PM TSH 1.46 08/05/2009 01:18 PM LDLCALC 82 07/14/2023 01:49 PM LDLCALC 80 05/25/2020 12:58 PM LDLDIRECT 66 05/13/2022 02:10 PM LDLDIRECT NOT APPLICABLE 05/25/2020 12:58 PM LDLDIRECT 138 (H) 03/03/2011 10:55 AM ALT 30 07/07/2023 10:23 AM ALT 50 (H) 06/24/2020 03:30 PM documented in this encounter Plan of Treatment Upcoming Encounters Date Type Department Care Team (Late st Contact Info) Description 12/26/2023 11:20 AM EDT Office Visit Family [address] [place] [phone] Deedee Campoverde PA-C [address] [place] [address] [place] [address] 12/27/2023 5:10 PM EDT Anticoagulation Pharmacy, [address] [place] [address] [place] [address] 01/02/2024 8:00 AM EDT Office Visit [address] [place] [phone] Deedee Campoverde PA-C [address] [place] [address] [place] [address] 01/15/2024 6:10 PM EDT Pharmacy Pharmacy, [facility] [address] [place] [address] [facility] [place] [address] Health Maintenance Due Date Last Done Comments [...] as of this encounter Visit Diagnoses Diagnosis HTN, goal below 140/90 Unspecified essential hypertension Cervicalgia DDD (degenerative disc disease), cervical Degeneration of cervical intervertebral disc Spasm of muscle documented in this encounter Care Teams Inbound Customer Service Representative Relationship Specialty Start Date End Date Vijaya Garcia MD [address] [place] [address] [place] [address] PCP - General Family Medicine 07/13/21 documented as of this encounter
--- OUTSIDE RECORDS SUMMARY | 2024-01-01 23:19 | External Medical Summary | Summary of Care ---
Author Name Unknown Organization [facility] Address [address] [place] [address] Phone [phone] Care Team Providers Care Mainframe Consultant Name Role Phone Sara Schwarz MD Primary Care Prov ider Reason for Visit * Reason Comments Appointment Encounter Details Date Type Department Care Team (Late st Contact Info) Description 12/04/2023 6:10 PM EDT Pharm[facility] Pharm[facility], [facility] [place] [address] [facility] [address] [facility] [place] [address] Chronic pain syndrome* Allergies Active Allergy Reactions Criticality Noted Date Comments Cetirizine & Related 10/13/2003 zyrtec-much gi distress Vancomycin High 07/20/2020 Other reaction(s): kidney issues, unknown, WORSENING RENAL FUNCTION documented as of this encounter (statuses as of 12/04/2023) Medications Medication Sig Dispensed Refills Start Date [...] Oral Tablet Take by mouth. 0 Active amLODIPine Besylate 10 MG Oral Tablet (Norvasc)Indication s:HTN, goal below 140/90 TAKE 1 TABLET BY MOUTH EVERY DAY IN THE MORNING 90 Tablet 1 3 Active Amitriptyline HCl 25 MG Oral Tablet (Elavil)Indications :Other osteoarthritis of spine, lumbar region,Polyneuropat hy in other diseases classified elsewhere ([facility]) Take 1 Tablet by mouth at bedtime. In addition to 50 mg tablet 90 Tablet 3 3 Active Vqyhf-1-bkdq Ethyl Esters 1 GM Oral CapsuleIndications: Dyslipidemia, goal LDL below 100 Take 4 capsules daily by mouth 360 Capsule 11 3 Active Amitriptyline HCl 50 MG Oral Tablet (Elavil) TAKE 1 TABLET BY MOUTH EVERYDAY AT BEDTIME 90 Tablet 3 3 Active tiZANidine HCl 4 MG Oral Tablet (Zanaflex)Indicatio ns:Cervicalgia,DDD (degenerative disc disease), cervical,Spasm of muscle TAKE 1/2-1 TABLET BY MOUTH DAILY NEEDED FOR SPAMS 90 Tablet 1 3 Active Pregabalin 150 MG Oral Capsule [...] lower extremity through tibia and fibula ([facility]),Chronic bilateral back pain, unspecified back location Take [...] 80 mg before bedtime. Per hospital discharge [id number]. 0 3 Active Zinc 15 66 MG [...] Brand necessary. 30 Tablet 0 4 Active documented as of this encounter (statuses as of 12/04/2023) Active Problems Problem Noted Date Diagnosed Date [...] as of this encounter (statuses as of 12/04/2023) Resolved Problems Problem Noted Date Diagnosed Date [...] as of this encounter (statuses as of 12/04/2023) Immunizations Name Administration Dates Next Due COVID-19 mRNA, LNP-s, No Pre serve, 2-Dose Series (Pfizer) 01/19/2021,11/28/2020 COVID-19, MRNA-LNP, 23-24, P F, 30 MCG/0.3 mL, 12 YRS AND ABOVE, IM ([employer]-ComirnatCodefied) 07/14/2023 Covid-19 Adenovirus, [place] 1 Vector, 2-dose Series, PF (Bundle) 08/10/2021 Covid-19, Mrna, Lnp-s, Pf, B ivalent, [...] and older)(Adacel) 05/30/2008 Varicella Zoster Vaccine (Adult) 06/20/2020,0403/2015 Zoster Vaccine Recombinant (Shingrix) 06/20/2020 documented as [...] as of this encounter Progress Notes * Mary Lou Rodriguez, respiratory care specialist - 12/04/2023 9:37 AM EDT Patient Phone Numbers Left message on patients answering machine to schedule [facility] appointment for pain management. [facility] sent --no Clinic will follow up again in 4 week(s). [Attempt # 3] Thank you, Mary Lou Rodriguez Auto Body Builder Apprentice Centralized Clinical Pharmacy Services 12/04/2023,9:37 AM documented in this encounter Plan of Treatment Upcoming Encounters Date Type Department Care Team (Late st Contact Info) Description 12/06/2023 5:10 PM EDT Anticoagulation Pharmacy, [address] [place] [address] [place] [address] 01/02/2024 6:10 PM EDT Pharmacy Pharmacy, [facility] [address] [facility] [place] [address] [address] [place] [address] Health Maintenance Due Date Last Done Comments [...] as of this encounter Visit Diagnoses Diagnosis Chronic pain syndrome- Primary documented in this encounter Care Teams Mainframe Consultant Relationship Specialty Start Date End Date Sara Schwarz MD [address] [place] [address] [place] [phone] PCP - General Family Medicine 07/13/21 documented as of this encounter
--- OUTSIDE RECORDS SUMMARY | 2024-01-01 23:19 | External Medical Summary | Summary of Care ---
Author Name Unknown Organization [facility] Address [address] [place] [address] Phone [phone] Care Team Providers Care Spring Tier Name Role Phone Sara Schwarz MD Primary Care Prov ider Reason for Visit * Reason Comments Dosage Adjustment Via Phone (anticoag Cl inic) Encounter Details Date Type Department Care Team (Latest Contact Info) Description 12/11/2023 5:10 PM EDT Anticoagulation Pharmacy, [address] [place] [address] [place] [address] Acute deep vein thrombosis (DVT) of other vein of lower extremity, unspecified laterality (HCC)* Allergies Active Allergy Reactions Criticality Noted Date Comments Cetirizine & Related 10/13/2003 zyrtec-much gi distress Vancomycin High 07/20/2020 Other reaction(s): kidney issues, unknown, WORSENING RENAL FUNCTION documented as of this encounter (statuses as of 12/11/2023) Medications Medication Sig Dispensed Refills Start Date [...] in other diseases classified elsewhere ([facility]) Take 1 Tablet by mouth at bedtime. In addition to 50 mg tablet 90 Tablet 3 3 Active Fwgye-0-larl Ethyl Esters 1 GM Oral CapsuleIndications: Dyslipidemia, [...] extremity through tibia and fibula ([facility]),Chronic bilateral back pain, unspecified back [...] 80 mg before bedtime. Per hospital discharge [id number]. 0 3 Active Zinc 15 66 MG [...] as of this encounter (statuses as of 12/11/2023) Active Problems Problem Noted Date Diagnosed Date [...] as of this encounter (statuses as of 12/11/2023) Resolved Problems Problem Noted Date Diagnosed Date [...] as of this encounter (statuses as of 12/11/2023) Immunizations Name Administration Dates Next Due COVID-19 mRNA, LNP-s, No Pre serve, 2-Dose Series ([employer]) 01/19/2021,11/28/2020 COVID-19, MRNA-LNP, 23-24, P F, 30 MCG/0.3 mL, 12 YRS AND ABOVE, IM ([employer]on[employer]Comirnat[employer]wan [employer]) 07/14/2023 Covid-19 Adenovirus, [place] 1 Vector, 2-dose Series, PF ([employer]) 08/10/2021 Covid-19, Mrna, Lnp-s, Pf, B ivalent, [...] of this encounter Progress Notes * Janae Khan RPh - 12/11/2023 11:46 AM EDT Patient Phone Numbers Called and spoke with patient's daughter. States patient is currently at [facility] ([phone]). Called and spoke with center, disconnected from line. Attempted to call back without success. Left message to return call to clinic. Janae Khan RPh, PharmD Clinical Pharmacist - Marketing Strategy Lead Medication Therapy [facility] 12/11/2023, 4:20 PM [phone] documented in this encounter Plan of Treatment Upcoming Encounters Date Type Department Care Team (Late st Contact Info) Description 12/13/2023 5:10 PM EDT Anticoagulation Pharmacy, [address] [place] [address] [place] [address] 01/15/2024 6:10 PM EDT Pharmacy Pharmacy, [facility] [address] [place] [address] [facility] [address] [place] [address] Health Maintenance Due Date Last Done Comments [...] Primary documented in this encounter Care Teams Spring Tier Relationship Specialty Start Date End Date Sara Schwarz MD [address] [place] [address] [place] [id number] PCP - General Family Medicine 07/13/21 documented as of this encounter
--- OUTSIDE RECORDS SUMMARY | 2024-01-01 23:19 | External Medical Summary | Summary of Care ---
Author Name Unknown Organization [facility] Address [address] [place] [address] Phone [phone] Care Team Providers Care Weeder Thinner Name Role Phone Sara Schwarz MD Primary Care Prov ider Reason for Visit * Reason Onset Date Comments Order Request 12/25/2023 Encounter Details Date Type Department Care Team (Late st Contact Info) Description 12/25/2023 Telephone [address] [phone] Sara Schwarz MD [address] [place] [address] [place] [address] Order Request Allergies Active Allergy Reactions Criticality Noted Date Comments Cetirizine & Related 10/13/2003 zyrtec-much gi distress Vancomycin High 07/20/2020 Other reaction(s): kidney issues, unknown, WORSENING RENAL FUNCTION documented as of this encounter (statuses as of 12/26/2023) Medications Medication Sig Dispensed Refills Start Date [...] region,Polyneuropat hy in other diseases classified elsewhere ([facility]) Take 1 Tablet by mouth at bedtime. In addition to 50 mg tablet 90 Tablet 3 3 Active Ngohh-8-tydl Ethyl Esters 1 GM Oral CapsuleIndications: Dyslipidemia, [...] left lower extremity through tibia and fibula ([facility]),Chronic bilateral back pain, unspecified back location Take [...] 80 mg before bedtime. Per hospital discharge [id number]. 0 3 Active Zinc 15 66 MG [...] as of this encounter (statuses as of 12/26/2023) Active Problems Problem Noted Date Diagnosed Date [...] as of this encounter (statuses as of 12/26/2023) Resolved Problems Problem Noted Date Diagnosed Date [...] as of this encounter (statuses as of 12/26/2023) Immunizations Name Administration Dates Next Due COVID-19 mRNA, LNP-s, No Pre serve, 2-Dose Series ([employer]) 01/19/2021,11/28/2020 COVID-19, MRNA-LNP, 23-24, P F, 30 MCG/0.3 mL, 12 YRS AND ABOVE, IM ([employer]volvio-ComirnatEnsogo) 07/14/2023 Covid-19 Adenovirus, [place] 1 Vector, 2-dose Series, PF (Nimb[employer]) 08/10/2021 Covid-19, Mrna, Lnp-s, Pf, B ivalent, 30 Mcg, IM, 12 yrs and above ([employer]) 09/06/2022 Pneumococcal Conjugate Vacc, 13 Valent (Prevnar) [...] encounter Miscellaneous Notes * Telephone Encounter - Yolanda Bowling RN - 12/26/2023 8:31 AM EDT Pt Cancelled appt with Deedee hartman, R/S for next week Orders faxed to * Telephone Encounter - Sara Schwarz MD - 12/25/2023 4:50 PM EDT UA/C orders signed. OK to remove white - order signed. Patient to see Deedee tomorrow - FY, please look at her rash and see if she needs Nystatin powder * Telephone Encounter - Janae Khan [facility] - 12/25/2023 4:17 PM EDT Noted by [facility]. Need to clarify why Coumadin was on hold as well as last PT/INR. Previous NOZZLE AND SLEEVE WORKER dose was 6 mg every Mon, Mon; 4.5 mg all other days. Called and spoke with [facility] ([phone]). Specimen not yet received. Aden plan to contact [facility] with result. Patient has hospital discharge tomorrow with Deedee Campoverde PA-C. She will plan to discuss more atthat time. No INR results received by EOD. Call placed to follow up on result tomorrow. Hopeful to utilize Counts include 234 beds at the [facility] services to obtain additional INRs. 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 Will re-evaluate once patient is up and moving more. Requesting an order to remove patients white catheter and also collect an order for UA C&S because her urine is looking creamy yellow and foul smelling. She states that patient is able to get up to go to the BR. Patient told her that the rehab left the white in because she asked them to leave it in. Mary feels if it is removed patient will get out of bed move and start moving around more. Patient has a yeast infection in her radha area - Mary is requesting an order for Nystatin powder. PT/INR were drawn and she is just dropping it off at the lab now - [facility] Coumadin has been on hold since Monday, she is to start 1 mg daily today. Pharm selected. Please advise. Next Nursing visit(s) on Monday They will call with any updates or additional concerns from the upcoming HH visit. Last Office Visit: 09/19/2023 Has patient been scheduled or seen in the office for a follow up visit: Yes- on 12/26/23 Advised that orders will be signed by Dr. Diana Lind and to fax to the office for signature. Call back Mary with advice or orders [facility] documented in this encounter Plan of Treatment Upcoming Encounters Date Type Department Care Team (Late st Contact Info) Description 12/26/2023 5:40 PM EDT Anticoagulation Pharmacy, [address] [place] [address] [place] [address] 01/01/2024 2:00 PM EDT Office Visit [address] [place] [address] [place] [address] Reji Yan MD [address] [place] [address] [place] [address] 01/02/2024 8:00 AM EDT Office Visit [address] [place] [address] Deedee Campoverde PA-C [address] [place] [address] [place] [address] 01/15/2024 6:10 PM EDT Pharmacy Pharmacy, [facility] [address] [facility] [place] [address] [facility] [address] [facility] [place] [address] Scheduled Orders Name Type Priority Associated Diagnoses Orde r Schedule URINALYSIS, REFLEX TO MICROSCOPIC Lab Routine Dysuria Expected: 12/25/2023, Expires: 12/24/2024 CULTURE, URINE, QUANTITATIVE Lab Routine Dysuria Expected: 12/25/2023, Expires: 12/24/2024 Health Maintenance Due Date Last Done Comments [...] of lower extremity, unspecified laterality (HCC)- Primary Dysuria documented in this encounter Care Teams Weeder Thinner Relationship Specialty Start Date End Date Sara Schwarz MD [address] [place] [address] [place] [address] PCP - General Family Medicine 07/13/21 documented as of this encounter
--- OUTSIDE RECORDS SUMMARY | 2024-01-01 23:19 | External Medical Summary | Summary of Care ---
Author Name Unknown Organization [facility] Address [address] [place] [address] Phone [phone] Care Team Providers Care Photogrammetric Engineer Name Role Phone Sara Schwarz MD Primary Care Prov ider Reason for Visit * Reason Onset Date Comments FYI 12/06/2023 Encounter Details Date Type Department Care Team (Late st Contact Info) Description 12/06/2023 Telephone Pharmacy, [address] [place] [address] [place] [address] Allergies Active Allergy Reactions Criticality Noted Date Comments Cetirizine & Related 10/13/2003 zyrtec-much gi distress Vancomycin High 07/20/2020 Other reaction(s): kidney issues, unknown, WORSENING RENAL FUNCTION documented as of this encounter (statuses as of 12/06/2023) Medications Medication Sig Dispensed Refills Start Date [...] hy in other diseases classified elsewhere ([facility]) Take 1 Tablet by mouth at bedtime. In addition to 50 mg tablet 90 Tablet 3 3 Active Sycnm-3-sphl Ethyl Esters 1 GM Oral CapsuleIndications: Dyslipidemia, [...] lower extremity through tibia and fibula ([facility]),Chronic bilateral back pain, unspecified back location Take [...] 80 mg before bedtime. Per hospital discharge [id number]. 0 3 Active Zinc 15 66 MG [...] as of this encounter (statuses as of 12/06/2023) Active Problems Problem Noted Date Diagnosed Date [...] as of this encounter (statuses as of 12/06/2023) Resolved Problems Problem Noted Date Diagnosed Date [...] as of this encounter (statuses as of 12/06/2023) Immunizations Name Administration Dates Next Due COVID-19 mRNA, LNP-s, No Pre serve, 2-Dose Series (Pfizer) 01/19/2021,11/28/2020 COVID-19, MRNA-LNP, 23-24, P F, 30 MCG/0.3 mL, 12 YRS AND ABOVE, IM ([employer] 07/14/2023 Covid-19 Adenovirus, [place] 1 Vector, 2-dose Series, PF ([employer]) 08/10/2021 Covid-19, Mrna, Lnp-s, Pf, B ivalent, [...] Telephone Encounter - Janae Khan RPh - 12/06/2023 1:43 PM EDT Addressed in separate encounter. Janae Khan RPh, PharmD Clinical Pharmacist - Puller Machine Medication Therapy Disease Management [facility] 12/06/2023, 1:43 PM [phone] * Telephone Encounter - Christina Cabrera PHARM Tech - 12/06/2023 12:49 PM EDT Pt will be at facility for a while , unsure when you would like next follow up advised I would put on for Monday but family said terminal make up operator I will just move to end of next week documented in this encounter Plan of Treatment Upcoming Encounters Date Type Department Care Team (Latest Contact Info) Description 12/06/2023 5:10 PM EDT Anticoagulation Pharmacy, [address] [place] [address] [place] [address] Acute deep vein thrombosis (DVT) of other vein of lower extremity, unspecified laterality (HCC)* 12/15/2023 5:10 PM EDT Anticoagulation Pharmacy, [address] [place] [address] [place] [address] 01/15/2024 6:10 PM EDT [facility]acy Pharm[facility], [facility] [place] [address] [facility] [place] [address] Health Maintenance Due Date Last Done Comments [...] filedocumented as of this encounter Care Teams Photogrammetric Engineer Relationship Specialty Start Date End Date Sara Schwarz MD [address] [place] [address] [place] [address] PCP - General Family Medicine 07/13/21 documented as of this encounter
--- OUTSIDE RECORDS SUMMARY | 2024-01-01 23:19 | External Medical Summary | Summary of Care ---
Author Name Unknown Organization [facility] Address [address] [place] [address] Phone [phone] Care Team Providers Care Clay Mixer Name Role Phone Sara Schwarz MD Primary Care Prov ider Reason for Visit * Reason Comments Dosage Adjustment Via Phone (anticoag Cl inic) Encounter Details Date Type Department Care Team (Latest Contact Info) Description 11/22/2023 5:10 PM [facility] Anticoagulation Pharmacy, [address] [place] [address] [place] [address] Acute deep vein thrombosis (DVT) of other vein of lower extremity, unspecified laterality (HCC)* Allergies Active Allergy Reactions Criticality Noted Date Comments Cetirizine & Related 10/13/2003 zyrtec-much gi distress Vancomycin High 07/20/2020 Other reaction(s): kidney issues, unknown, WORSENING RENAL FUNCTION documented as of this encounter (statuses as of 11/22/2023) Medications Medication Sig Dispensed Refills Start Date [...] in other diseases classified elsewhere ([facility]) Take 1 Tablet by mouth at bedtime. In addition to 50 mg tablet 90 Tablet 3 3 Active Smyro-8-inmq Ethyl Esters 1 GM Oral CapsuleIndications: Dyslipidemia, [...] extremity through tibia and fibula ([facility]),Chronic bilateral back pain, unspecified back location [...] 80 mg before bedtime. Per hospital discharge [id number]. 0 3 Active Zinc 15 66 MG [...] as of this encounter (statuses as of 11/22/2023) Active Problems Problem Noted Date Diagnosed Date [...] as of this encounter (statuses as of 11/22/2023) Resolved Problems Problem Noted Date Diagnosed Date [...] as of this encounter (statuses as of 11/22/2023) Immunizations Name Administration Dates Next Due COVID-19 mRNA, LNP-s, No Pre serve, 2-Dose Series ([employer]) 01/19/2021,11/28/2020 COVID-19, MRNA-LNP, 23-24, P F, 30 MCG/0.3 mL, 12 YRS AND ABOVE, IM ([employer]ComirnatBrandwatch) 07/14/2023 Covid-19 Adenovirus, [place] 1 Vector, 2-dose Series, PF ([employer]obiTeris) 08/10/2021 Covid-19, Mrna, Lnp-s, Pf, B ivalent, [...] Progress Notes * Janae Khan RPh - 11/22/2023 3:11 PM EST Patient Phone Numbers Called and spoke with patient's daughter. Reports patient is still currently admitted at [facility]. Call placed to f/u next week. Janae Khan RPh, PharmD Clinical Pharmacist - Tractor Mechanic Medication Therapy Disease Management Clinic 11/22/2023, 3:13 PM [phone] documented in this encounter Plan of Treatment Upcoming Encounters Date Type Department Care Team (Late st Contact Info) Description 11/23/2023 6:10 PM EST Pharmacy Pharmacy, [facility] [address] [facility] [place] [address] [facility] [address] [facility] [place] [address] 11/29/2023 5:10 PM EST Anticoagulation Pharmacy, [address] [place] [address] [place] [address] Health Maintenance Due Date Last Done Comments [...] Primary documented in this encounter Care Teams Clay Mixer Relationship Specialty Start Date End Date Sara Schwarz MD [address] [place] [address] [place] [address] PCP - General Family Medicine 07/13/21 documented as of this encounter
--- OUTSIDE RECORDS SUMMARY | 2024-01-01 23:19 | External Medical Summary | Summary of Care ---
Author Name Unknown Organization [facility] Address [address] [place] [address] Phone [phone] Care Team Providers Care Radio Repairer Name Role Phone Sara Schwarz MD Primary Care Prov ider Reason for Visit * Reason Comments Dosage Adjustment Via Phone (anticoag Cl inic) Encounter Details Date Type Department Care Team (Latest Contact Info) Description 12/07/2023 5:10 PM EDT Anticoagulation Pharmacy, [address] [place] [address] [place] [address] Acute deep vein thrombosis (DVT) of other vein of lower extremity, unspecified laterality (HCC)* Allergies Active Allergy Reactions Criticality Noted Date Comments Cetirizine & Related 10/13/2003 zyrtec-much gi distress Vancomycin High 07/20/2020 Other reaction(s): kidney issues, unknown, WORSENING RENAL FUNCTION documented as of this encounter (statuses as of 12/07/2023) Medications Medication Sig Dispensed Refills Start Date [...] region,Polyneuropat hy in other diseases classified elsewhere ([facility]) Take 1 Tablet by mouth at bedtime. In addition to 50 mg tablet 90 Tablet 3 3 Active Wfsgf-7-lmdk Ethyl Esters 1 GM Oral CapsuleIndications: Dyslipidemia, [...] left lower extremity through tibia and fibula ([facility]),Chronic bilateral back pain, unspecified back [...] 80 mg before bedtime. Per hospital discharge [id number]. 0 3 Active Zinc 15 66 MG [...] as of this encounter (statuses as of 12/07/2023) Active Problems Problem Noted Date Diagnosed Date [...] as of this encounter (statuses as of 12/07/2023) Resolved Problems Problem Noted Date Diagnosed Date [...] as of this encounter (statuses as of 12/07/2023) Immunizations Name Administration Dates Next Due COVID-19 mRNA, LNP-s, No Pre serve, 2-Dose Series ([employer]) 01/19/2021,11/28/2020 COVID-19, MRNA-LNP, 23-24, P F, 30 MCG/0.3 mL, 12 YRS AND ABOVE, IM (BroadSoft-ComirnatMoneytree) 07/14/2023 Covid-19 Adenovirus, [place] 1 Vector, 2-dose Series, PF ([employer]) 08/10/2021 Covid-19, Mrna, Lnp-s, Pf, B ivalent, [...] Progress Notes * Janae Khan RPh - 12/07/2023 2:44 PM EDT Patient Phone Numbers Attempted to contact family, no answer. Left message to return call to clinic. Upon return call to clinic - will need to confirm which facility patient is currently in to ensure they are managing anticoagulation. Call placed to continue to follow up next week. Janae Khan RPh, PharmD Clinical Pharmacist - Cath Lab Medication Therapy Disease Management Clinic 12/07/2023, 2:46 PM [phone] documented in this encounter Plan of Treatment Upcoming Encounters Date Type Department Care Team (Late st Contact Info) Description 12/11/2023 5:10 PM EDT Anticoagulation Pharmacy, [address] [place] [address] [place] [address] 01/15/2024 6:10 PM EDT Pharmacy Pharmacy, [facility] [address] [place] [address] [facility] [address] [place] [address] Health Maintenance Due Date Last Done Comments [...] Primary documented in this encounter Care Teams Radio Repairer Relationship Specialty Start Date End Date Sara Schwarz MD [address] [place] [address] [place] [id number] PCP - General Family Medicine 07/13/21 documented as of this encounter
--- OUTSIDE RECORDS SUMMARY | 2024-01-01 23:19 | External Medical Summary | Summary of Care ---
Author Name Unknown Organization [facility] Address [address] [place] [address] Phone [phone] Care Team Providers Care Nuclear Station Operator Name Role Phone Sara Schwarz MD Primary Care Prov ider Reason for Visit * Reason Comments Dosage Adjustment Via Phone (anticoag Cl inic) Encounter Details Date Type Department Care Team (Latest Contact Info) Description 12/26/2023 5:40 PM EDT Anticoagulation Pharmacy, [address] [place] [address] [place] [address] Acute deep vein thrombosis (DVT) of other [...] in other diseases classified elsewhere ([facility]) Take 1 Tablet by mouth at bedtime. In addition to 50 mg tablet 90 Tablet 3 3 Active Sgldj-8-fevw Ethyl Esters 1 GM Oral CapsuleIndications: Dyslipidemia, [...] extremity through tibia and fibula ([facility]),Chronic bilateral back pain, unspecified back location [...] 80 mg before bedtime. Per hospital discharge [id number]. 0 3 Active Zinc 15 66 MG [...] mRNA, LNP-s, No Pre serve, 2-Dose Series (Modular Robotics) 01/19/2021,11/28/2020 COVID-19, MRNA-LNP, 23-24, P F, 30 MCG/0.3 mL, 12 YRS AND ABOVE, IM (Optensity-ComirnatProtAffin Biotechnologie) 07/14/2023 Covid-19 Adenovirus, [place] 1 Vector, 2-dose Series, PF (Yummy77) 08/10/2021 Covid-19, Mrna, Lnp-s, Pf, B ivalent, 30 Mcg, IM, 12 yrs and above (Modular Robotics) 09/06/2022 Pneumococcal Conjugate Vacc, 13 Valent (Prevnar) [...] as of this encounter Progress Notes * Christy Rehman, [facility] - 12/26/2023 2:51 PM EDT Images from the original note were not included. Medication Therapy Disease Management - Anticoagulation Patient: Eda Estrada | : 1950 Subjective Contacts Type Contact Phone/Fax 12/26/2023 02:51 PM EDT Phone (Outgoing) Eda Estrada (Self) [phone] (H) Spoke to Patient Patient-Reported Symptoms: Patient Findings Positives: Change in health, Change in diet/appetite Objective Current Warfarin Dose As of 12/26/2023 Pt reports last warfarin dose was on 12/22/23. Unsure of dose. INR Result As of 12/26/2023 INR goal: 2.0-3.0 INR used for dosin.94 (12/25/2023) Assessment & Plan Warfarin Plan As of 12/26/2023 Full warfarin instructions: 4/2: Hold; 4/3: Hold; 4/4: 4.5 mg; 4/5: 4.5 mg; 4/6: 4.5 mg; 4/7: 4.5 mg; 12/31: 4.5 mg Next INR check: 01/01/2024 Repeat PT/INR next week to match Dr. Patel's appt on 01/01/24; also scheduled appt for 01/02/24 to match that hospital discharge f/u uppt just in case patient cancels on 01/01/24. 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 Christy Rehman [facility] Clinical Pharmacist 12/26/2023, 2:51 PM * Norma Tse, pet sitter - 12/26/2023 12:52 PM EDT Spoke with [facility] lab and obtained verbal INR result from yesterday, 12/25/23. INR = 4.94 Thank you, Norma Tse Supervisor Slate Splitting [facility] ([facility]) 12/26/2023,12:53 PM documented in this encounter Plan of Treatment Upcoming Encounters Date Type Department Care Team (Late st Contact Info) Description 01/01/2024 1:40 PM EDT Anticoagulation Pharmacy, [address] [place] [address] [place] [address] 01/01/2024 2:00 PM EDT Office Visit [address] [place] [address] Reji Yan MD [address] [place] [address] [place] [address] 01/02/2024 8:00 AM EDT Office Visit [address] [place] [address] Deedee Campoverde PA-C [address] [place] [address] [place] [address] 01/02/2024 9:00 AM EDT Anticoagulation Pharmacy, [address] [place] [address] [place] [address] 01/15/2024 6:10 PM EDT Pharmacy Pharmacy, [facility] [place] [address] [facility] [address] [facility] [place] [address] Health Maintenance Due Date Last Done Comments [...] Date/Time Associated Diagnosis Comments OUTSIDE LAB-PT/INR Routine 12/25/2023 documented in this encounter Results * OUTSIDE LAB-PT/INR (12/25/2023) INR-OUTSIDE LAB 4.94 History Per Patient LABORATORY documented in this encounter Visit Diagnoses Diagnosis Acute deep vein thrombosis (DVT) of other vein of lower extremity, unspecified laterality (HCC)- Primary documented in this encounter Care Teams Nuclear Station Operator Relationship Specialty Start Date End Date Sara Schwarz MD [address] [place] [address] [place] [address] PCP - General Family Medicine 07/13/21 documented as of this encounter"
--- OUTSIDE RECORDS SUMMARY | 2024-01-01 23:19 | External Medical Summary | Summary of Care ---
Author Name Unknown Organization [facility] Address [address] [place] [address] Phone [phone] Care Team Providers Care Radial Drill Press Operator For Plastic Name Role Phone Sara Schwarz MD Primary Care Prov ider Reason for Visit * Reason Comments Dosage Adjustment Via Phone (anticoag Cl inic) Encounter Details Date Type Department Care Team (Latest Contact Info) Description 12/13/2023 5:10 PM EDT Anticoagulation Pharmacy, [address] [place] [address] [place] [address] Acute deep vein thrombosis (DVT) of other vein of lower extremity, unspecified laterality (HCC)* Allergies Active Allergy Reactions Criticality Noted Date Comments Cetirizine & Related 10/13/2003 zyrtec-much gi distress Vancomycin High 07/20/2020 Other reaction(s): kidney issues, unknown, WORSENING RENAL FUNCTION documented as of this encounter (statuses as of 12/13/2023) Medications Medication Sig Dispensed Refills Start Date [...] mg tablet 90 Tablet 3 3 Active Yzspz-2-scul Ethyl Esters 1 GM Oral CapsuleIndications: Dyslipidemia, [...] 80 mg before bedtime. Per hospital discharge [id number]. 0 3 Active Zinc 15 66 MG [...] as of this encounter (statuses as of 12/13/2023) Active Problems Problem Noted Date Diagnosed Date [...] as of this encounter (statuses as of 12/13/2023) Resolved Problems Problem Noted Date Diagnosed Date [...] as of this encounter (statuses as of 12/13/2023) Immunizations Name Administration Dates Next Due COVID-19 mRNA, LNP-s, No Pre serve, 2-Dose Series (KOTURA) 01/19/2021,11/28/2020 COVID-19, MRNA-LNP, 23-24, P F, 30 MCG/0.3 mL, 12 YRS AND ABOVE, IM (MESI-ComirnatEvento Social Promotion) 07/14/2023 Covid-19 Adenovirus, [place] 1 Vector, 2-dose Series, PF (ZeroPoint Clean Tech) 08/10/2021 Covid-19, Mrna, Lnp-s, Pf, B ivalent, [...] Progress Notes * Janae Khan RPh - 12/13/2023 12:46 PM EDT Patient Phone Numbers Called and spoke with [facility] and [facility] ([phone]). Confirmed patient still remains under their care. Attempted to transfer to center directly to discuss warfarin management, no answer. Multiple attempts made throughout the day. Left message to returncall to clinic to further discuss. Janae Khan RPh, PharmD Clinical Pharmacist - Supervisor Irrigation Medication Therapy Disease Management Clinic 12/13/2023, 12:48 PM [phone] documented in this encounter Plan of Treatment Upcoming Encounters Date Type Department Care Team (Late st Contact Info) Description 12/20/2023 5:10 PM EDT Anticoagulation Pharmacy, [address] [place] [address] [place] [address] 01/15/2024 6:10 PM EDT Pharmacy Pharmacy, [facility] [address] [place] [address] [facility] [address] [place] [address] Health Maintenance Due Date Last Done Comments [...] Primary documented in this encounter Care Teams Radial Drill Press Operator For Plastic Relationship Specialty Start Date End Date Sara Schwarz MD [address] [place] [address] [place] [phone] PCP - General Family Medicine 07/13/21 documented as of this encounter
--- OUTSIDE RECORDS SUMMARY | 2024-01-01 23:19 | External Medical Summary | Summary of Care ---
Author Name Unknown Organization [facility] Address [address] [place] [address] Phone [phone] Care Team Providers Care Histotechnologist Supervisor Name Role Phone Sara Schwarz MD Primary Care Prov ider Reason for Visit * Reason Comments Dosage Adjustment Via Phone (anticoag Cl inic) Encounter Details Date Type Department Care Team (Latest Contact Info) Description 12/26/2023 5:40 PM EDT Anticoagulation Pharmacy, [address] [place] [address] [place] [address] Acute deep vein thrombosis (DVT) of other [...] region,Polyneuropat hy in other diseases classified elsewhere ([facility]) Take 1 Tablet by mouth at bedtime. In addition to 50 mg tablet 90 Tablet 3 3 Active Yzdat-7-bymz Ethyl Esters 1 GM Oral CapsuleIndications: Dyslipidemia, [...] left lower extremity through tibia and fibula ([facility]),Chronic bilateral back pain, unspecified back location [...] 80 mg before bedtime. Per hospital discharge [id number]. 0 3 Active Zinc 15 66 MG [...] mRNA, LNP-s, No Pre serve, 2-Dose Series (KupiBonus) 01/19/2021,11/28/2020 COVID-19, MRNA-LNP, 23-24, P F, 30 MCG/0.3 mL, 12 YRS AND ABOVE, IM (Connexity-ComirnatUserEvents) 07/14/2023 Covid-19 Adenovirus, [place] 1 Vector, 2-dose Series, PF (Booodl) 08/10/2021 Covid-19, Mrna, Lnp-s, Pf, B ivalent, 30 Mcg, IM, 12 yrs and above (KupiBonus) 09/06/2022 Pneumococcal Conjugate Vacc, 13 Valent (Prevnar) [...] this encounter Progress Notes * Christy Rehman, [facility] - 12/26/2023 2:51 PM EDT Images from the original note were not included. 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 Christy Rehman [facility] Clinical Pharmacist 12/26/2023, 2:51 PM * Norma Tse, refuge worker - 12/26/2023 12:52 PM EDT Spoke with [facility] lab and obtained verbal INR result from yesterday, 12/25/23. INR = 4.94 Thank you, Norma Tse Office Services Clerk [facility] ([facility]) 12/26/2023,12:53 PM documented in this encounter Plan of Treatment Upcoming Encounters Date Type Department Care Team (Late st Contact Info) Description 01/01/2024 1:40 PM EDT Anticoagulation Pharmacy, [address] [place] [address] [place] [address] 01/01/2024 2:00 PM EDT Office Visit [address] [place] [address] Reji Yan MD [address] [place] [address] [place] [address] 01/02/2024 8:00 AM EDT Office Visit [address] [place] [address] Deedee Campoverde PA-C [address] [place] [address] [place] [address] 01/02/2024 9:00 AM EDT Anticoagulation Pharmacy, [address] [place] [address] [place] [address] 01/15/2024 6:10 PM EDT Pharmacy Pharmacy, [facility] [place] [address] [facility] [address] [facility] [place] [address] Health Maintenance Due Date Last Done Comments [...] Primary documented in this encounter Care Teams Histotechnologist Supervisor Relationship Specialty Start Date End Date Sara Schwarz MD [address] [place] [address] [place] [address] PCP - General Family Medicine 07/13/21 documented as of this encounter"
--- OUTSIDE RECORDS SUMMARY | 2024-01-01 23:19 | External Medical Summary | Summary of Care ---
Author Name Unknown Organization [facility] Address [address] [place] [address] Phone [phone] Care Team Providers Care Commission Sales Associate Name Role Phone Sara Schwarz MD Primary Care Prov ider Reason for Visit * Reason Comments Dosage Adjustment Via Phone (anticoag Cl inic) Encounter Details Date Type Department Care Team (Latest Contact Info) Description 12/06/2023 5:10 PM EDT Anticoagulation Pharmacy, [address] [place] [address] [place] [address] Acute deep vein thrombosis (DVT) of other [...] mg tablet 90 Tablet 3 3 Active Gjyjv-4-mttw Ethyl Esters 1 GM Oral CapsuleIndications: Dyslipidemia, [...] 80 mg before bedtime. Per hospital discharge [id number]. 0 3 Active Zinc 15 66 MG [...] mRNA, LNP-s, No Pre serve, 2-Dose Series (UTStarcom) 01/19/2021,11/28/2020 COVID-19, MRNA-LNP, 23-24, P F, 30 MCG/0.3 mL, 12 YRS AND ABOVE, IM (Ctrip-ComirnatCoPatient) 07/14/2023 Covid-19 Adenovirus, [place] 1 Vector, 2-dose Series, PF (Screaming Sports) 08/10/2021 Covid-19, Mrna, Lnp-s, Pf, B ivalent, [...] Progress Notes * Janae Khan RPh - 12/06/2023 10:50 AM EDT Patient Phone Numbers Called and spoke with [facility] directory. ([phone]). Cafeteria Clerk states patient is no longer admitted inpatient. Attempted to contact both numbers above, no answer. Left message to return call to clinic. Per separate TE, family returned call stating patient is in a senior care care facility. Will need toconfirm which facility and if they manage anticoagulation. Attempted to return call to family, no answer. Call placed to f/u again tomorrow. Janae Khan RPh, PharmD Clinical Pharmacist - Business Employment Specialist Medication Therapy Disease Management Clinic 12/06/2023, 3:39 PM [phone] documented in this encounter Plan of Treatment Upcoming Encounters Date Type Department Care Team (Late st Contact Info) Description 12/07/2023 5:10 PM EDT Anticoagulation Pharmacy, [address] [place] [address] [place] [address] 01/15/2024 6:10 PM EDT Pharmacy Pharmacy, [facility] [address] [place] [address] [facility] [place] [address] Health Maintenance Due Date Last Done Comments [...] Primary documented in this encounter Care Teams Commission Sales Associate Relationship Specialty Start Date End Date Sara Schwarz MD [address] [place] [address] [place] [phone] PCP - General Family Medicine 07/13/21 documented as of this encounter
--- OUTSIDE RECORDS SUMMARY | 2024-01-01 23:19 | External Medical Summary | Summary of Care ---
Author Name Unknown Organization [facility] Address [address] [place] [address] Phone [phone] Care Team Providers Care Java Developer Architect Name Role Phone Sara Schwarz MD Primary Care Prov ider Reason for Visit * Reason Comments Dosage Adjustment Via Phone (anticoag Cl inic) Encounter Details Date Type Department Care Team (Latest Contact Info) Description 11/29/2023 5:10 PM [facility] Anticoagulation Pharmacy, [address] [place] [address] [place] [address] Acute deep vein thrombosis (DVT) of other vein of lower extremity, unspecified laterality (HCC)* Allergies Active Allergy Reactions Criticality Noted Date Comments Cetirizine & Related 10/13/2003 zyrtec-much gi distress Vancomycin High 07/20/2020 Other reaction(s): kidney issues, unknown, WORSENING RENAL FUNCTION documented as of this encounter (statuses as of 11/29/2023) Medications Medication Sig Dispensed Refills Start Date [...] region,Polyneuropat hy in other diseases classified elsewhere ([facility]) Take 1 Tablet by mouth at bedtime. In addition to 50 mg tablet 90 Tablet 3 3 Active Bqefg-0-ybxw Ethyl Esters 1 GM Oral CapsuleIndications: Dyslipidemia, [...] left lower extremity through tibia and fibula ([facility]),Chronic bilateral back pain, unspecified back [...] 80 mg before bedtime. Per hospital discharge [id number]. 0 3 Active Zinc 15 66 MG [...] as of this encounter (statuses as of 11/29/2023) Active Problems Problem Noted Date Diagnosed Date [...] as of this encounter (statuses as of 11/29/2023) Resolved Problems Problem Noted Date Diagnosed Date [...] as of this encounter (statuses as of 11/29/2023) Immunizations Name Administration Dates Next Due COVID-19 mRNA, LNP-s, No Pre serve, 2-Dose Series (MePlease) 01/19/2021,11/28/2020 COVID-19, MRNA-LNP, 23-24, P F, 30 MCG/0.3 mL, 12 YRS AND ABOVE, IM (Godigex-ComirnatBioGenerics) 07/14/2023 Covid-19 Adenovirus, [place] 1 Vector, 2-dose Series, PF (RentMatch) 08/10/2021 Covid-19, Mrna, Lnp-s, Pf, B ivalent, [...] Progress Notes * Janae Khan RPh - 11/29/2023 10:44 AM EST Patient Phone Numbers Called and spoke with [facility] directory. ([phone]). Confirmed patient is currentlyadmitted. [facility] will continue to follow up on status and for discharge. Call placed to f/u next week. Janae Khan RPh, PharmD Clinical Pharmacist - Wringer Machine Operator Medication Therapy Disease Management Clinic 11/29/2023, 10:47 AM [phone] documented in this encounter Plan of Treatment Upcoming Encounters Date Type Department Care Team (Late st Contact Info) Description 12/04/2023 6:10 PM EDT Pharmacy Pharmacy, [facility] [address] [facility] [place] [address] [facility] [address] [place] [address] 12/06/2023 5:10 PM EDT Anticoagulation Pharmacy, [address] [place] [address] [place] [address] Health Maintenance Due Date Last Done Comments [...] Primary documented in this encounter Care Teams Java Developer Architect Relationship Specialty Start Date End Date Sara Schwarz MD [address] [place] [address] [place] [id number] PCP - General Family Medicine 07/13/21 documented as of this encounter
--- OUTSIDE RECORDS SUMMARY | 2024-01-01 23:19 | External Medical Summary | Summary of Care ---
Author Name Unknown Organization [facility] Address [address] [place] [address] Phone [phone] Care Team Providers Care Provider Scribe Name Role Phone Sara Schwarz MD Primary Care Prov ider Reason for Visit * Reason Onset Date Comments FYI 09/21/2023 Encounter Details Date Type Department Care Team (Late st Contact Info) Description 09/21/2023 Telephone Family [address] [address] Sara Schwarz MD [address] [place] [address] [place] [address] FYI Allergies Active Allergy Reactions Criticality Noted Date Comments Cetirizine & Related 10/13/2003 zyrtec-much gi distress Vancomycin High 07/20/2020 Other reaction(s): kidney issues, unknown, WORSENING RENAL FUNCTION documented as of this encounter (statuses as of 12/21/2023) Medications Medication Sig Dispensed Refills Start Date [...] 60 to 180 days 1 Each 1 03/15/2022 Active Iron 325 (65 Fe) MG Oral Tablet Take by mouth. 0 Active Vitamin D 25 MCG (1000 UT) Oral Tablet Take by mouth. 0 Active amLODIPine Besylate 10 MG Oral Tablet (Norvasc)Indications: HTN, goal below 140/90 TAKE 1 TABLET BY MOUTH EVERY DAY IN THE MORNING 90 Tablet 1 01/20/2023 Active Amitriptyline HCl 25 MG Oral Tablet (Elavil)Indications:O ther osteoarthritis of spine, lumbar region,Polyneuropathy in other diseases classified elsewhere ([facility]) Take 1 Tablet by mouth at bedtime. In addition to 50 mg tablet 90 Tablet 3 02/09/2023 Active Ukpcq-6-jbwh Ethyl Esters 1 GM Oral CapsuleIndications:Dy slipidemia, goal LDL below 100 Take 4 capsules daily by mouth 360 Capsule 11 02/23/2023 Active Amitriptyline HCl 50 MG Oral Tablet (Elavil) TAKE 1 TABLET BY MOUTH EVERYDAY AT BEDTIME 90 Tablet 3 06/02/2023 Active tiZANidine HCl 4 MG Oral Tablet (Zanaflex)Indications :Cervicalgia,DDD (degenerative disc disease), cervical,Spasm of muscle TAKE 1/2-1 TABLET BY MOUTH DAILY NEEDED FOR SPAMS 90 Tablet 1 06/27/2023 Active Pregabalin 150 MG Oral Capsule (Lyrica) Take 1 Capsule by mouth in the morning and 1 Capsule at noon and 1 Capsule before bedtime. 90 Capsule 5 07/18/2023 Active busPIRone HCl 10 MG Oral Tablet (Buspar)Indications:A nxiety TAKE 1 TABLET BY MOUTH IN THE MORNING AND BEFORE BEDTIME 180 Tablet 3 07/19/2023 Active Probiotic Product Oral Capsule Take 1 Capsule by mouth in the morning. 3,000 mmu cells daily with meals . 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 60 Tablet 0 08/01/2023 Active Alendronate Sodium 70 MG Oral Tablet (Fosamax)Indications: Age-related osteoporosis without current pathological fracture TAKE 1 TABLET BY MOUTH ONCE A WEEK. WITH 8 OZ. WATER 30 MINUTES BEFORE FIRST MEAL OF THE DAY REMAIN UPRIGHT FOR 30 MIN AFTER TAKING 12 Tablet 1 08/28/2023 Active Atorvastatin Calcium 20 MG Oral Tablet (Lipitor)Indications: Dyslipidemia, goal LDL below 100 TAKE 1 TABLET BY MOUTH EVERY DAY IN THE EVENING 90 Tablet 3 09/03/2023 Active Enoxaparin Sodium 80 MG/0.8ML Injection Solution Prefilled Syringe (Lovenox) Inject 80 mg under the skin in the morning and 80 mg before bedtime. Per hospital discharge [id number]. 0 09/09/2023 Active Zinc 15 66 MG Oral Tablet (Zinc Sulfate) Take by mouth once. Patient unsure dosage 0 Active Losartan Potassium 25 MG Oral Tablet (Cozaar)Indications:H TN, goal below 140/90 TAKE 1 TABLET BY MOUTH EVERY DAY IN THE MORNING 90 Tablet 1 09/19/2023 Active documented as of this encounter (statuses as of 12/21/2023) Active Problems Problem Noted Date Diagnosed Date [...] as of this encounter (statuses as of 12/21/2023) Resolved Problems Problem Noted Date Diagnosed Date [...] as of this encounter (statuses as of 12/21/2023) Immunizations Name Administration Dates Next Due COVID-19 mRNA, LNP-s, No Pre serve, 2-Dose Series ([employer]) 01/19/2021,11/28/2020 COVID-19, MRNA-LNP, 23-24, P F, 30 MCG/0.3 mL, 12 YRS AND ABOVE, IM (MedClimate-ComirnatMoments.me) 07/14/2023 Covid-19 Adenovirus, [place] 1 Vector, 2-dose Series, PF ([employer]) 08/10/2021 Covid-19, Mrna, Lnp-s, Pf, B ivalent, 30 Mcg, IM, 12 yrs and above ([employer]) 09/06/2022 Pneumococcal Conjugate Vacc, 13 Valent (Prevnar) [...] encounter Miscellaneous Notes * Telephone Encounter - Jess Dickey OSA - 09/21/2023 3:50 PM EST Home health services called to get plan of Care approval. They will fax over the plan for Dr Lind to sign. documented in this encounter Plan of Treatment Upcoming Encounters Date Type Department Care Team (Late st Contact Info) Description 12/26/2023 11:20 AM EDT Office Visit Family [address] [place] [address] Deedee Campoverde PA-C [address] [place] [address] [place] [address] 12/27/2023 5:10 PM EDT Anticoagulation Pharmacy, [address] [place] [address] [place] [address] 01/02/2024 8:00 AM EDT Office Visit [address] [place] [address] Deedee Campoverde PA-C [address] [place] [address] [place] [address] 01/15/2024 6:10 PM EDT Pharmacy Pharmacy, [facility] [address] [place] [address] [facility] [address] [place] [address] Health Maintenance Due Date Last Done Comments Wang 01/13/1996 Fecal Occult Blood Test 01/13/1996 Sigmoidoscopy [...] filedocumented as of this encounter Care Teams Provider Scribe Relationship Specialty Start Date End Date Sara Schwarz MD [address] [place] [address] [place] [phone] PCP - General Family Medicine 07/13/21 documented as of this encounter
--- OUTSIDE RECORDS SUMMARY | 2024-01-01 23:19 | External Medical Summary | Summary of Care ---
Author Name Unknown Organization [facility] Address [address] [place] [address] Phone [phone] Care Team Providers Care Credit Control Clerk Name Role Phone Sara Schwarz MD Primary Care Prov ider Reason for Visit * Reason Comments Dosage Adjustment Via Phone (anticoag Cl inic) Encounter Details Date Type Department Care Team (Latest Contact Info) Description 12/20/2023 5:10 PM EDT Anticoagulation Pharmacy, [address] [place] [address] [place] [address] Acute deep vein thrombosis (DVT) of other vein of lower extremity, unspecified laterality (HCC)* Allergies Active Allergy Reactions Criticality Noted Date Comments Cetirizine & Related 10/13/2003 zyrtec-much gi distress Vancomycin High 07/20/2020 Other reaction(s): kidney issues, unknown, WORSENING RENAL FUNCTION documented as of this encounter (statuses as of 12/20/2023) Medications Medication Sig Dispensed Refills Start Date [...] hy in other diseases classified elsewhere ([facility]) Take 1 Tablet by mouth at bedtime. In addition to 50 mg tablet 90 Tablet 3 3 Active Wxyyw-9-zsil Ethyl Esters 1 GM Oral CapsuleIndications: Dyslipidemia, [...] lower extremity through tibia and fibula ([facility]),Chronic bilateral back pain, unspecified back [...] 80 mg before bedtime. Per hospital discharge [id number]. 0 3 Active Zinc 15 66 MG [...] as of this encounter (statuses as of 12/20/2023) Active Problems Problem Noted Date Diagnosed Date [...] as of this encounter (statuses as of 12/20/2023) Resolved Problems Problem Noted Date Diagnosed Date [...] as of this encounter (statuses as of 12/20/2023) Immunizations Name Administration Dates Next Due COVID-19 mRNA, LNP-s, No Pre serve, 2-Dose Series (Pfizer) 01/19/2021,11/28/2020 COVID-19, MRNA-LNP, 23-24, P F, 30 MCG/0.3 mL, 12 YRS AND ABOVE, IM ([employer]) 07/14/2023 Covid-19 Adenovirus, Gray 1 Vector, 2-dose Series, PF (Seisquare) 08/10/2021 Covid-19, Mrna, Lnp-s, Pf, B ivalent, [...] Progress Notes * Janae Khan RPh - 12/20/2023 8:51 AM EDT Patient Phone Numbers Called and spoke with [facility] ([phone]). Confirmed patient still remains under their care. Spoke with floor nurse. Confirmed patient remainson warfarin and it is being managed in house. Call placed to check for discharge next week. Janae Khan RPh, PharmD Clinical Pharmacist - Ecommerce Marketing Specialist Medication Therapy [facility] 12/20/2023, 8:53 AM [phone] documented in this encounter Plan of Treatment Upcoming Encounters Date Type Department Care Team (Late st Contact Info) Description 12/27/2023 5:10 PM EDT Anticoagulation Pharmacy, [address] [place] [address] [place] [address] 01/15/2024 6:10 PM EDT Pharmacy Pharmacy, [facility] [address] [place] [address] [facility] [address] [place] [address] Health Maintenance Due Date Last Done Comments [...] Primary documented in this encounter Care Teams Credit Control Clerk Relationship Specialty Start Date End Date Sara Schwarz MD [address] [place] [address] [place] [phone] PCP - General Family Medicine 07/13/21 documented as of this encounter
--- OUTSIDE RECORDS SUMMARY | 2024-01-01 23:20 | External Medical Summary | Summary of Care ---
Author Name Unknown Organization [facility] Address [address] [place] [address] Phone [phone] Care Team Providers Care Universal Banker Name Role Phone Sara Schwarz MD Primary Care Prov ider Reason for Visit * Reason Comments Dosage Adjustment Via Phone (anticoag Cl inic) Encounter Details Date Type Department Care Team (Latest Contact Info) Description 11/13/2023 5:40 PM [facility] Anticoagulation Pharmacy, [address] [place] [address] [place] [address] Acute deep vein thrombosis (DVT) of other vein of lower extremity, unspecified laterality (HCC)* Allergies Active Allergy Reactions Criticality Noted Date Comments Cetirizine & Related 10/13/2003 zyrtec-much gi distress Vancomycin High 07/20/2020 Other reaction(s): kidney issues, unknown, WORSENING RENAL FUNCTION documented as of this encounter (statuses as of 11/13/2023) Medications Medication Sig Dispensed Refills Start Date [...] in other diseases classified elsewhere ([facility]) Take 1 Tablet by mouth at bedtime. In addition to 50 mg tablet 90 Tablet 3 3 Active Zewpw-6-zjpd Ethyl Esters 1 GM Oral CapsuleIndications: Dyslipidemia, [...] extremity through tibia and fibula ([facility]),Chronic bilateral back pain, unspecified back [...] 80 mg before bedtime. Per hospital discharge [id number]. 0 3 Active Zinc 15 66 MG [...] as of this encounter (statuses as of 11/13/2023) Active Problems Problem Noted Date Diagnosed Date [...] as of this encounter (statuses as of 11/13/2023) Resolved Problems Problem Noted Date Diagnosed Date [...] as of this encounter (statuses as of 11/13/2023) Immunizations Name Administration Dates Next Due COVID-19 mRNA, LNP-s, No Pre serve, 2-Dose Series ([employer]) 01/19/2021,11/28/2020 COVID-19, MRNA-LNP, 23-24, P F, 30 MCG/0.3 mL, 12 YRS AND ABOVE, IM ([employer]) 07/14/2023 Covid-19 Adenovirus, [place] 1 Vector, 2-dose Series, PF (Xianguo) 08/10/2021 Covid-19, Mrna, Lnp-s, Pf, B ivalent, [...] Progress Notes * Janae Khan RPh - 11/13/2023 4:07 PM EST Patient Phone Numbers Attempted to contact patient at numbers above, no answer. Called and spoke with [facility] directory ([phone]). Confirmed patient is currently admitted at [facility]. Call placed to f/u on status later this week. Janae Khan RPh, PharmD Clinical Pharmacist - Debridging Machine Operator Medication Therapy [facility] 11/13/2023, 4:12 PM [phone] * Kajal Arciniega PHARM Tech - 11/13/2023 3:24 PM EST [facility][phone] She stated pt has been admitted to a hospital in [place] since 11/08. She also noted pt "made her rounds" with [facility]. And now it sounds like theyare doing surgery on her leg and she might be looking at an extended stay. Please advise. Thank you, Kajal Arciniega Forensic Ballistics Expert [facility] ([facility]) (Formerly Telepharm[facility]) 11/13/2023, 3:26 PM documented in this encounter Plan of Treatment Upcoming Encounters Date Type Department Care Team (Late st Contact Info) Description 11/16/2023 5:10 PM EST Anticoagulation Pharmacy, [address] [place] [address] [place] [address] 11/23/2023 6:10 PM EST Pharmacy Pharmacy, [facility] [address] [facility] [place] [address] [facility] [address] [facility] [place] [address] Health Maintenance Due Date Last Done Comments [...] Primary documented in this encounter Care Teams Universal Banker Relationship Specialty Start Date End Date Sara Schwarz MD [address] [place] [address] [place] [phone] PCP - General Family Medicine 07/13/21 documented as of this encounter
--- OUTSIDE RECORDS SUMMARY | 2024-01-01 23:20 | External Medical Summary | Summary of Care ---
Author Name Unknown Organization [facility] Address [address] [place] [address] Phone [phone] Care Team Providers Care Clam Dredge Boat Captain Name Role Phone Sara Schwarz MD Primary Care Prov ider Encounter Details Date Type Department Care Team (Late st Contact Info) Description 11/07/2023 Orders Only Family Medicine [address] [address] Sara Schwarz MD [address] [place] [address] [place] [address] Allergies Active Allergy Reactions Criticality Noted Date Comments Cetirizine & Related 10/13/2003 zyrtec-much gi distress Vancomycin High 07/20/2020 Other reaction(s): kidney issues, unknown, WORSENING RENAL FUNCTION documented as of this encounter (statuses as of 11/07/2023) Medications Medication Sig Dispensed Refills Start Date [...] region,Polyneuropat hy in other diseases classified elsewhere ([facility]) Take 1 Tablet by mouth at bedtime. In addition to 50 mg tablet 90 Tablet 3 3 Active Qyqgh-6-fgwo Ethyl Esters 1 GM Oral CapsuleIndications: Dyslipidemia, [...] left lower extremity through tibia and fibula ([facility]),Chronic bilateral back pain, unspecified back location Take [...] 80 mg before bedtime. Per hospital discharge [id number]. 0 3 Active Zinc 15 66 MG [...] as of this encounter (statuses as of 11/07/2023) Active Problems Problem Noted Date Diagnosed Date [...] as of this encounter (statuses as of 11/07/2023) Resolved Problems Problem Noted Date Diagnosed Date [...] as of this encounter (statuses as of 11/07/2023) Immunizations Name Administration Dates Next Due COVID-19 mRNA, LNP-s, No Pre serve, 2-Dose Series (NextCloud) 01/19/2021,11/28/2020 COVID-19, MRNA-LNP, 23-24, P F, 30 MCG/0.3 mL, 12 YRS AND ABOVE, IM ([employer]ir[employer]) 07/14/2023 Covid-19 Adenovirus, [place] 1 Vector, 2-dose Series, PF (DeepFlex) 08/10/2021 Covid-19, Mrna, Lnp-s, Pf, B ivalent, [...] got the money to buy more. Patient refused Within the past 12 months, t he food you bought just didn't last and you didn't have money to get more. Patient refused Sex and Gender Information Value Date Recorded [...] Care Team (Late st Contact Info) Description 11/13/2023 5:40 PM EST Anticoagulation Pharmacy, [address] [place] [address] [place] [address] 11/15/2023 1:00 PM EST Office Visit Gastroenterology, [facility] [address] [place] [address] Cammy Mosqueda CRNP [address] [place] [address] 11/23/2023 6:10 PM EST Pharmacy Pharmacy, [facility] [address] [place] [address] [facility] [place] [address] Health Maintenance Due Date Last Done Comments Cologuard 01/13/1996 Fecal Occult Blood Test 01/13/1996 Sigmoidoscopy 01/13/1996 Zoster Vaccines (3 of 3) 08/15/2020 020, 06/20/2020, 12/30/2014 Depression Screening 01/07/2024 01/06/2023 Mammogram 10/09/2024 10/09/2023, 04/2023, 10/07/2022, Additional history exists GFR 10/23/2024 11/06/2023, 09/26, 07/07/2023, Additional history exists Albumin/Creatinine [...] Procedure Name Priority Date/Time Associated Diagnosis Comments CHEMISTRY-OUTSIDE Routine 11/06/2023 documented in this encounter Results * CHEMISTRY-OUTSIDE (11/06/2023) Not all results display below - see scan for full detail OUTSIDE LAB (SEE SCANNED REPORT) Comment:PH KSENIA ED-GFR,CMP ,CBCD CREATININE-OUTSID E LAB 0.57 0.55 - 1.02 MG/DL OUTSIDE LAB (SEE SCANNED REPORT) EGFR-OUTSIDE LAB >90 60 ML/MIN OUT SIDE LAB (SEE SCANNED REPORT) POTASSIUM-OUTSIDE LAB 3.7 3.5 - 5.1 MMOL OUTSIDE LAB (SEE SCANNED REPORT) GLUCOSE-OUTSIDE LAB 107 70 - 110 MG/DL OUTSIDE LAB (SEE SCANNED REPORT) HOURS FASTING OUTSID E LAB (SEE SCANNED REPORT) TRIGLYCERIDES-OUT SIDE LAB OUTSIDE LAB (SEE SCANNED REPORT) CHOLESTEROL-OUTSI DE LAB OUTSIDE LAB (SEE SCANNED REPORT) HDL-OUTSIDE LAB OUTS MARICARMEN LAB (SEE SCANNED REPORT) CHOL/HDL RATIO-OUTSIDE LAB OUTSIDE LA B (SEE SCANNED REPORT) LDL (CALCULATED)-OUTS MARICARMEN LAB OUTSIDE LAB (SEE SCANNED REPORT) LDL (DIRECT MEASURE)-OUTSIDE LAB OUTSIDE LAB (SEE SCANNED REPORT) HEMOGLOBIN, I0H-SABBODO LAB OUTSIDE LAB (SEE SCANNED REPORT) PHOSPHORUS-OUTSID E LAB OUTSIDE LAB (SEE SCANNED REPORT) PTH-OUTSIDE LAB OUTS MARICARMEN LAB (SEE SCANNED REPORT) MICROALBUMIN RATIO-OUTSIDE LAB OUTSIDE LA B (SEE SCANNED REPORT) PROTEIN, UA-OUTSIDE LAB OUTSIDE LAB (SEE SCANNED REPORT) HEMOGLOBIN-OUTSID E LAB 12.5 12 - 16 GM/DL OUTSIDE LAB (SEE SCANNED REPORT) 11/06/2023 Kris Lewis DO LABORATORY OUTSIDE LAB (SEE SCANNED REPORT) documented in this encounter Care Teams Clam Dredge Boat Captain Relationship Specialty Start Date End Date Sara Schwarz MD [address] [place] [address] [place] [address] PCP - General Family Medicine 07/13/21 documented as of this encounter
--- OUTSIDE RECORDS SUMMARY | 2024-01-01 23:20 | External Medical Summary | Summary of Care ---
Author Name Unknown Organization [facility] Address [address] [place] [address] Phone [phone] Care Team Providers Care Bridge Attacher Name Role Phone Sara Schwarz MD Primary Care Prov ider Reason for Visit * Reason Onset Date Comments Advice 11/15/2023 Encounter Details Date Type Department Care Team (Late st Contact Info) Description 11/15/[address] [address] Sara Schwarz MD [address] [place], [place] [address] [address] Advice Allergies Active Allergy Reactions Criticality Noted Date Comments Cetirizine & Related 10/13/2003 zyrtec-much gi distress Vancomycin High 07/20/2020 Other reaction(s): kidney issues, unknown, WORSENING RENAL FUNCTION documented as of this encounter (statuses as of 11/15/2023) Medications Medication Sig Dispensed Refills Start Date [...] in other diseases classified elsewhere ([facility]) Take 1 Tablet by mouth at bedtime. In addition to 50 mg tablet 90 Tablet 3 3 Active Inthg-0-ppsw Ethyl Esters 1 GM Oral CapsuleIndications: Dyslipidemia, [...] extremity through tibia and fibula ([facility]),Chronic bilateral back pain, unspecified back location Take [...] 80 mg before bedtime. Per hospital discharge [id number]. 0 3 Active Zinc 15 66 MG [...] as of this encounter (statuses as of 11/15/2023) Active Problems Problem Noted Date Diagnosed Date [...] as of this encounter (statuses as of 11/15/2023) Resolved Problems Problem Noted Date Diagnosed Date [...] as of this encounter (statuses as of 11/15/2023) Immunizations Name Administration Dates Next Due COVID-19 mRNA, LNP-s, No Pre serve, 2-Dose Series (Vaxart) 01/19/2021,11/28/2020 COVID-19, MRNA-LNP, 23-24, P F, 30 MCG/0.3 mL, 12 YRS AND ABOVE, IM ([employer]-ComirnatStorPool) 07/14/2023 Covid-19 Adenovirus, Reynolds 1 Vector, 2-dose Series, PF (Limtel) 08/10/2021 Covid-19, Mrna, Lnp-s, Pf, B ivalent, 30 Mcg, IM, 12 yrs and above (Vaxart) 09/06/2022 Pneumococcal Conjugate Vacc, 13 Valent (Prevnar) [...] encounter Miscellaneous Notes * Telephone Encounter - Nataliya Whitley LPN - 11/15/2023 3:50 PM EST Kirsten from [facility] is calling. Is asking if PCP would sign for HH orders. Made Kirsten aware that the pt was on caseload with [facility] before hospital admission and PCPwas signing those orders. Advised that pt will need to schedule hospital D/C f/u once aware of D/C date. documented in this encounter Plan of Treatment Upcoming Encounters Date Type Department Care Team (Late st Contact Info) Description 11/16/2023 5:10 PM EST Anticoagulation Pharmacy, [address] [place] [address] [place] [address] 11/23/2023 6:10 PM EST Pharmacy Pharmacy, [facility] [address] [facility] [place] [address] [facility] [address] [place] [address] Health Maintenance Due Date Last Done Comments [...] filedocumented as of this encounter Care Teams Bridge Attacher Relationship Specialty Start Date End Date Sara Schwarz MD [address] [place] [address] [place] [address] PCP - General Family Medicine 07/13/21 documented as of this encounter
--- OUTSIDE RECORDS SUMMARY | 2024-01-01 23:20 | External Medical Summary | Summary of Care ---
Author Name Unknown Organization [facility] Address [address] [place] [address] Phone [phone] Care Team Providers Care Janitor Custodian Name Role Phone Sara Schwarz MD Primary Care Prov ider Encounter Details Date Type Department Care Team (Late st Contact Info) Description 11/06/2023 Result Scan Unspecified Department <No scans attached> Allergies Active Allergy Reactions [...] in other diseases classified elsewhere ([facility]) Take 1 Tablet by mouth at bedtime. In addition to 50 mg tablet 90 Tablet 3 3 Active Kdtni-7-pqwv Ethyl Esters 1 GM Oral CapsuleIndications: Dyslipidemia, [...] extremity through tibia and fibula ([facility]),Chronic bilateral back pain, unspecified back location Take [...] 80 mg before bedtime. Per hospital discharge [id number]. 0 3 Active Zinc 15 66 MG [...] mRNA, LNP-s, No Pre serve, 2-Dose Series ([employer]) 01/19/2021,11/28/2020 COVID-19, MRNA-LNP, 23-24, P F, 30 MCG/0.3 mL, 12 YRS AND ABOVE, IM (Rev[facility] Pharmaceuticals[facility]) 07/14/2023 Covid-19 Adenovirus, [place] 1 Vector, 2-dose Series, PF ([employer]) 08/10/2021 Covid-19, Mrna, Lnp-s, Pf, B ivalent, [...] Description 11/13/2023 5:40 PM EST Anticoagulation Pharmacy, [address] [place] [address] [place] [address] 11/15/2023 1:00 PM EST Office Visit Gastroenterology, [facility] [address] [address] Cammy Mosqueda CRNP [address] [place] [address] 11/23/2023 6:10 PM EST Pharmacy Pharmacy, [facility] [address] [place] [address] [facility] [address] [place] [address] Health Maintenance Due Date Last Done Comments Cologuard 01/13/1996 Fecal Occult Blood Test 01/13/1996 Sigmoidoscopy 01/13/1996 Zoster Vaccines (3 of 3) 08/15/2020 020, 06/20/2020, 12/30/2014 Depression Screening 01/07/2024 01/06/2023 Mammogram 10/09/2024 10/09/2023, 02/0 04/2023, 10/07/2022, Additional history exists GFR 10/23/2024 [...] Date/Time Associated Diagnosis Comments OUTSIDE LAB RESULTS 11/06/2023 documented in this encounter Results * OUTSIDE LAB RESULTS (11/06/2023) 11/06/2023 No Physician Data Unknown LABORATORY documented in this encounter Care Teams Janitor Custodian Relationship Specialty Start Date End Date Sara Schwarz MD [address] [place] [address] [place] [phone] PCP - General Family Medicine 07/13/21 documented as of this encounter
--- OUTSIDE RECORDS SUMMARY | 2024-01-01 23:20 | External Medical Summary | Summary of Care ---
Author Name Unknown Organization [facility] Address [address] [place] [address] Phone [phone] Care Team Providers Care Paddock Judge Name Role Phone Vijaya Garcia MD Primary Care Prov ider Reason for Referral * Medication Prior Authorization - Pending Review Specialty Diagnoses / Procedures Referred By Contac t Referred To Contact Diagnoses History of amputation of left lower extremity through tibia and fibula (HCC) Chronic bilateral back pain, unspecified back location Vijaya Garcia MD [address] [place] [address] [place] [address] Referral ID Status Reason Start Date Expiration Date V isits Requested Visits Authorized [id number] Pending Review 999 999 Reason for Visit * Reason Onset Date Comments Medication Refill 11/02/2023 Encounter Details Date Type Department Care Team (Late st Contact Info) Description 11/02/2023 Refill Family Medicine [address] [place] [phone] Vijaya Garcia MD [address] [place] [address] [place] [address] History of amputation of left lower extremity through tibia and fibula (HCC); Chronic bilateral back pain, unspecified back location Allergies Active Allergy Reactions Criticality Noted Date Comments Cetirizine & Related 10/13/2003 zyrtec-much gi distress Vancomycin High 07/20/2020 Other reaction(s): kidney issues, unknown, WORSENING RENAL FUNCTION documented as of this encounter (statuses as of 11/04/2023) Medications Medication Sig Dispensed Refills Start Date [...] region,Polyneuropa thy in other diseases classified elsewhere (HCC) Take 1 Tablet by mouth at bedtime. In addition to 50 mg tablet 90 Tablet 3 3 Active Sspzg-5-rcms Ethyl Esters 1 GM Oral CapsuleIndications :Dyslipidemia, [...] daily with meals . 0 3 Active HYDROcodone-Acetam inophen 10-325 MG Oral TabletIndications: [...] 80 mg before bedtime. Per hospital discharge [id number]. 0 3 Active Zinc 15 66 MG Oral Tablet (Zinc Sulfate) Take by mouth once. Patient unsure dosage 0 Active Losartan Potassium 25 MG Oral Tablet (Cozaar)Indication s:HTN, goal below 140/90 TAKE 1 TABLET BY MOUTH EVERY DAY IN THE MORNING 90 Tablet 1 3 Active HYDROcodone-Acetam inophen 5-325 MG Oral TabletIndications: [...] Brand necessary. 30 Tablet 0 4 Active OxyCONTIN 10 MG Oral Tablet ER 12 Hour Abuse-DeterrentInd ications:History of amputation of left lower extremity through tibia and fibula (HCC),Chronic bilateral back pain, unspecified back location Take 1 Tablet by mouth in the morning. Brand necessary. 30 Tablet 0 4 11/02/19 24 Discontinu ed(Refill) documented as of this encounter (statuses as of 11/04/2023) Active Problems Problem Noted Date Diagnosed Date [...] as of this encounter (statuses as of 11/04/2023) Resolved Problems Problem Noted Date Diagnosed Date [...] as of this encounter (statuses as of 11/04/2023) Immunizations Name Administration Dates Next Due COVID-19 mRNA, LNP-s, No Pre serve, 2-Dose Series ([employer]MD(TM) by [employer]) 01/19/2021,11/28/2020 COVID-19, MRNA-LNP, 23-24, P F, 30 MCG/0.3 mL, 12 YRS AND ABOVE, IM ([employer]-ComirnatAMO[employer]) 07/14/2023 Covid-19 Adenovirus, [place] 1 Vector, 2-dose Series, PF ([employer]) 08/10/2021 Covid-19, Mrna, Lnp-s, Pf, B ivalent, 30 Mcg, IM, 12 yrs and above (Swift[employer]MD(TM) by [employer]) 09/06/2022 Pneumococcal Conjugate Vacc, 13 Valent (Prevnar) [...] Telephone Encounter - Vijaya Garcia MD - 11/04/2023 11:41 AM ESTSigned Prescriptions: Disp Refills OxyCONTIN 10 MG Oral Tablet ER 12 Hour Abu*30 Tab*0 Sig: Take 1 Tablet by mouth in the morning. Brand necessary. Authorizing Provider: VIJAYA GARCIA * Telephone Encounter - Deepail Strong LPN - 11/03/2023 1:18 PM EST Patient is calling. She just got back from seeing orthopaedics. They think the adalid broke in her leg. Said they might have to take her leg off the rest of the way. She has been in pain for weeks. She has 2 pain pills left. She will not make it the weekend. Plus there is something wrong with her lower back. She has a f/u appt. With Dr. Lind on the . * Telephone Encounter - Deepali Strong LPN - 11/02/2023 1:44 PM EST Pending Prescriptions: Disp Refills OxyCONTIN 10 MG Oral Tablet ER 12 Hour Ab*30 Tab*0 Sig: Take 1 Tablet by mouth in the morning. Brand necessary. Last Visit: 09/19/2023 (in office), Visit date not found (telemedicine) Next Visit: 11/07/2023 Last date the medication was ordered: 10/02/23 Patient Active Problem List Diagnosis Code Carpal tunnel syndrome G56.00 ADVANCE DIRECTIVE INFORMATION HTN, GOAL BELOW 140/90 I10 Patent foramen ovale Q21.12 Degenerative arthritis of lumbar spine M47.816 Dyslipidemia, goal LDL below 100 E78.5 Psychophysiological insomnia F51.04 Controlled substance agreement signed Z79.899 Iron deficiency anemia due to chronic blood loss D50.0 History of amputation of left lower extremity through tibia and fibula (HCC) Z89.512 Anxiety F41.9 Polyneuropathy in other diseases classified elsewhere ([facility]) G63 PVD (peripheral vascular disease) ([facility]) I73.9 Rectocele N81.6 Cystocele, midline N81.11 Colostomy status ([facility]) Z93.3 Superior mesenteric artery stenosis ([facility]) K55.1 Acute deep vein thrombosis (DVT) of other vein of lower extremity, unspecified laterality ([facility]) I82.409 Chronic deep vein thrombosis (DVT) of femoral vein of left lower extremity ([facility]) I82.512 Labs: Lab Results Component Value Date/Time CREATININE - [facility] 0.7 07/07/2023 10:23 AM CREATININE - [facility] 0.6 06/24/2020 03:30 PM CREATININE AJIT 110 06/02/2020 02:09 PM CREATININE AJIT - [facility] 151 05/10/2022 05:12 PM CREATININE, RANDOM URINE - [facility] 147 05/10/2022 05:12 PM CREATININE-OUTSIDE LAB 0.55 10/23/2023 12:00 AM CREATININE-OUTSIDE LAB 0.41 (L) 07/20/2021 06:38 AM Lab Results Component Value Date/Time POTASSIUM - [facility] 4.2 07/07/2023 10:23 AM POTASSIUM - [facility] 3.9 06/24/2020 03:30 PM POTASSIUM-OUTSIDE LAB 3.1 (A) 10/23/2023 12:00 AM POTASSIUM-OUTSIDE LAB 4.1 07/20/2021 06:38 AM Lab Results Component Value Date/Time TSH - [facility] 2.16 10/26/2022 01:45 PM TSH - [facility] 1.46 08/05/2009 01:18 PM Lab Results Component Value Date/Time LDL CHOLESTEROL (CALCULATED) - [facility] 82 07/14/2023 01:49 PM LDL CHOLESTEROL (CALCULATED) - [facility] 80 05/25/2020 12:58 PM LDL CHOLESTEROL (CALCULATED) - [facility] UNINTERPRETABLE RESULT 12/31/2018 10:05 AM LDL CHOLESTEROL (DIRECT MEASURE) - [facility] 66 05/13/2022 02:10 PM LDL CHOLESTEROL (DIRECT MEASURE) - [facility] NOT APPLICABLE 05/25/2020 12:58 PM LDL CHOLESTEROL (DIRECT MEASURE) - [facility] 78 12/31/2018 10:05 AM LDL CHOLESTEROL (DIRECT MEASURE) - [facility] 138 (H) 03/03/2011 10:55 AM Lab Results Component Value Date/Time ALT - [facility] 30 07/07/2023 10:23 AM ALT - [facility] 50 (H) 06/24/2020 03:30 PM ALT-OUTSIDE LAB 22 08/25/2016 12:00 AM Hemoglobin AIC Results: No results found for: "HEMOGLOBIN A1C" documented in this encounter Plan of Treatment Upcoming Encounters Date Type Department Care Team (Late st Contact Info) Description 11/07/2023 8:00 AM EST Office Visit Family Medicine [address] [place] [phone] Jimbo Torres MD [address] [place] [address] [place] [address] 11/13/2023 5:40 PM EST Anticoagulation Pharmacy, [address] [place] [address] [place] [address] 11/15/2023 1:00 PM EST Office Visit Gastroenterology, [facility] [address] [place] [address] Cammy Mosqueda CRNP [address] [place] [address] 11/23/2023 6:10 PM EST Pharmacy Pharmacy, [facility] [address] [place] [address] [facility] [address] [place] [address] Health Maintenance Due Date Last Done Comments Cologuard 01/13/1996 Fecal Occult Blood Test 01/13/1996 Sigmoidoscopy 01/13/1996 Zoster Vaccines (3 of 3) 08/15/2020 020, 06/20/2020, 12/30/2014 Depression Screening 01/07/2024 01/06/2023 Mammogram 10/09/2024 10/09/2023, 04/2023, 10/07/2022, Additional history exists GFR 10/23/2024 10/23/2023, 06/25, 03/25/2022, Additional history exists Albumin/Creatinine Ratio 05/10/2025 05/10/2022 [...] as of this encounter Visit Diagnoses Diagnosis History of amputation of left lower extremity through tibia and fibula (HCC) Chronic bilateral back pain, unspecified back location documented in this encounter Care Teams Paddock Judge Relationship Specialty Start Date End Date Vijaya Garcia MD [address] [place] [address] [place] [address] PCP - General Family Medicine 07/13/21 documented as of this encounter
--- OUTSIDE RECORDS SUMMARY | 2024-01-01 23:20 | External Medical Summary | Summary of Care ---
Author Name Unknown Organization [facility] Address [address] [place] [address] Phone [phone] Care Team Providers Care Ophthalmic Nurse Name Role Phone Sara Schwarz MD Primary Care Prov ider Reason for Visit * Reason Comments Dosage Adjustment Via Phone (anticoag Cl inic) Encounter Details Date Type Department Care Team (Latest Contact Info) Description 11/16/2023 5:10 PM [facility] Anticoagulation Pharmacy, [address] [place] [address] [place] [address] Acute deep vein thrombosis (DVT) of other vein of lower extremity, unspecified laterality (HCC)* Allergies Active Allergy Reactions Criticality Noted Date Comments Cetirizine & Related 10/13/2003 zyrtec-much gi distress Vancomycin High 07/20/2020 Other reaction(s): kidney issues, unknown, WORSENING RENAL FUNCTION documented as of this encounter (statuses as of 11/16/2023) Medications Medication Sig Dispensed Refills Start Date [...] in other diseases classified elsewhere ([facility]) Take 1 Tablet by mouth at bedtime. In addition to 50 mg tablet 90 Tablet 3 3 Active Egfwf-0-nqbs Ethyl Esters 1 GM Oral CapsuleIndications: Dyslipidemia, [...] extremity through tibia and fibula ([facility]),Chronic bilateral back pain, unspecified back location Take [...] 80 mg before bedtime. Per hospital discharge [id number]. 0 3 Active Zinc 15 66 MG [...] as of this encounter (statuses as of 11/16/2023) Active Problems Problem Noted Date Diagnosed Date [...] as of this encounter (statuses as of 11/16/2023) Resolved Problems Problem Noted Date Diagnosed Date [...] as of this encounter (statuses as of 11/16/2023) Immunizations Name Administration Dates Next Due COVID-19 mRNA, LNP-s, No Pre serve, 2-Dose Series ([employer]) 01/19/2021,11/28/2020 COVID-19, MRNA-LNP, 23-24, P F, 30 MCG/0.3 mL, 12 YRS AND ABOVE, IM ([employer]-ComirnatPen[employer]) 07/14/2023 Covid-19 Adenovirus, [place] 1 Vector, 2-dose Series, PF ([employer]) 08/10/2021 Covid-19, Mrna, Lnp-s, Pf, B ivalent, [...] Progress Notes * Janae Khan RPh - 11/16/2023 10:01 AM EST Patient Phone Numbers Called and spoke with [facility] directory. ([phone]). Confirmed patient is currentlyadmitted. Called and spoke with spouse. Confirmed above. [facility] will continue to follow up on status and for discharge. Call placed to f/u next week. Janae Khan RPh, PharmD Clinical Pharmacist - Production Statistical Clerk [facility] 11/16/2023, 10:05 AM [phone] documented in this encounter Plan of Treatment Upcoming Encounters Date Type Department Care Team (Late st Contact Info) Description 11/22/2023 5:10 PM EST Anticoagulation Pharmacy, [address] [place] [address] [place] [address] 11/23/2023 6:10 PM EST Pharmacy Pharmacy, [facility] [address] [place] [address] [facility] [address] [place] [address] Health Maintenance Due Date Last Done Comments [...] Primary documented in this encounter Care Teams Ophthalmic Nurse Relationship Specialty Start Date End Date Sara Schwarz MD [address] [place] [address] [place] [phone] PCP - General Family Medicine 07/13/21 documented as of this encounter
--- OUTSIDE RECORDS SUMMARY | 2024-01-01 23:21 | External Medical Summary | Summary of Care ---
Author Name Unknown Organization [facility] Address [address] [place] [address] Phone [phone] Care Team Providers Care Palletiser Operator Name Role Phone Sara Schwarz MD Primary Care Prov ider Encounter Details Date Type Department Care Team (Late st Contact Info) Description 10/25/2023 Orders Only Family Medicine [address] [phone] Sara Schwarz MD [address] [place] [address] [place] [address] Allergies Active Allergy Reactions Criticality Noted Date Comments Cetirizine & Related 10/13/2003 zyrtec-much gi distress Vancomycin High 07/20/2020 Other reaction(s): kidney issues, unknown, WORSENING RENAL FUNCTION documented as of this encounter (statuses as of 10/25/2023) Medications Medication Sig Dispensed Refills Start Date [...] mg tablet 90 Tablet 3 3 Active Whvfq-1-nhyl Ethyl Esters 1 GM Oral CapsuleIndications: Dyslipidemia, [...] 80 mg before bedtime. Per hospital discharge [id number]. 0 3 Active Zinc 15 66 MG Oral Tablet (Zinc Sulfate) Take by mouth once. Patient unsure dosage 0 Active Losartan Potassium 25 MG Oral Tablet (Cozaar)Indications :HTN, goal below 140/90 TAKE 1 TABLET BY MOUTH EVERY DAY IN THE MORNING 90 Tablet 1 3 Active OxyCONTIN 10 MG Oral Tablet ER 12 Hour Abuse-DeterrentIndi cations:History of amputation of left lower extremity through tibia and fibula (HCC),Chronic bilateral back pain, unspecified back location Take 1 Tablet by mouth in the morning. Brand necessary. 30 Tablet 0 4 Active HYDROcodone-Acetami nophen 5-325 MG Oral TabletIndications:A mputation stump infection (HCC) Take 1 Tablet by mouth 2 times a day as needed for Pain, Mild or Pain, Breakthrough. 60 Tablet 0 4 Active Warfarin Sodium 3 MG Oral Tablet (Coumadin) Take 1-2 tablets by mouth daily as directed by anticoagulation clinic 180 Tablet 3 4 Active documented as of this encounter (statuses as of 10/25/2023) Active Problems Problem Noted Date Diagnosed Date [...] as of this encounter (statuses as of 10/25/2023) Resolved Problems Problem Noted Date Diagnosed Date [...] as of this encounter (statuses as of 10/25/2023) Immunizations Name Administration Dates Next Due COVID-19 mRNA, LNP-s, No Pre serve, 2-Dose Series ([employer]) 01/19/2021,11/28/2020 COVID-19, MRNA-LNP, 23-24, P F, 30 MCG/0.3 mL, 12 YRS AND ABOVE, IM ([employer]im[employer]-ComirnatTraitify) 07/14/2023 Covid-19 Adenovirus, [place] 1 Vector, 2-dose Series, PF ([employer]) 08/10/2021 Covid-19, Mrna, Lnp-s, Pf, B ivalent, [...] Care Team (Late st Contact Info) Description 10/26/2023 6:10 PM EST Pharmacy Pharmacy, [place] [address] [address] [place] [address] [place] [address] [place] [address] 10/30/2023 5:40 PM EST Anticoagulation Pharmacy, [address] [place] [address] [place] [address] 11/07/2023 8:00 AM EST Office Visit Family Medicine [address] [place] [phone] Jimbo Torres MD [address] [place] [address] [place] [address] 11/15/2023 1:00 PM EST Office Visit Gastroenterology, [facility] [address] [place] [address] Cammy Mosqueda CRNP [address] [place] [address] Health Maintenance Due Date Last Done Comments Cologuard 01/13/1996 Fecal Occult Blood Test 01/13/1996 Sigmoidoscopy 01/13/1996 Zoster Vaccines (3 of 3) 08/15/2020 020, 06/20/2020, 12/30/2014 Depression Screening 01/07/2024 01/06/2023 GFR 07/07/2024 10/23/2023, 06/25, 03/25/2022, Additional history exists Mammogram 10/09/2024 10/09/2023, /04/2023, 10/07/2022, Additional history exists Albumin/Creatinine Ratio 05/10/2025 05/10/2022 [...] Priority Date/Time Associated Diagnosis Comments CHEMISTRY-OUTSIDE Routine 10/23/2023 documented in this encounter Results * (ABNORMAL) CHEMISTRY-OUTSIDE (10/23/2023) Not all results display below - see scan for full detail OUTSIDE LAB (SEE SCANNED REPORT) Comment:SCAN INCLUDES: PH TY AYE ED LABS - CBCD, UA, CMP, LIPASE, MG, TROPONIN I HS CREATININE-OUTSI DE LAB 0.55 0.55 - 1.02 MG/DL OUTSIDE LAB (SEE SCANNED REPORT) EGFR-OUTSIDE LAB >90 >=60 ML/MIN/1.73M 2 OUTSIDE LAB (SEE SCANNED REPORT) POTASSIUM-OUTSID E LAB 3.1(A) 3.5 - 5.1 MMOL/L OUTSIDE LAB (SEE SCANNED REPORT) GLUCOSE-OUTSIDE LAB 97 70 - 110 MG/DL OUTSIDE LAB (SEE SCANNED REPORT) HOURS FASTING OUTSID E LAB (SEE SCANNED REPORT) TRIGLYCERIDES-OU TSIDE LAB OUTSIDE LAB (SEE SCANNED REPORT) CHOLESTEROL-OUTS MARICARMEN LAB OUTSIDE LAB (SEE SCANNED REPORT) HDL-OUTSIDE LAB OUTS MARICARMEN LAB (SEE SCANNED REPORT) CHOL/HDL RATIO-OUTSIDE LAB OUTSIDE LAB (SEE SCANNED REPORT) LDL (CALCULATED)-OUT SIDE LAB OUTSIDE LAB (SEE SCANNED REPORT) LDL (DIRECT MEASURE)-OUTSIDE LAB OUTSIDE LAB (SEE SCANNED REPORT) HEMOGLOBIN, [id number] LAB OUTSIDE LAB (SEE SCANNED REPORT) PHOSPHORUS-OUTSI DE LAB OUTSIDE LAB (SEE SCANNED REPORT) PTH-OUTSIDE LAB OUTS MARICARMEN LAB (SEE SCANNED REPORT) MICROALBUMIN RATIO-OUTSIDE LAB OUTSIDE LAB (SEE SCANNED REPORT) PROTEIN, UA-OUTSIDE LAB 2+(A) NEGATIVE OUTSIDE LAB (SEE SCANNED REPORT) HEMOGLOBIN-OUTSI DE LAB 12.5 12.0 - 16.0 GM/DL OUTSIDE LAB (SEE SCANNED REPORT) 10/23/2023 Vinicio Singh MD LABORATORY OUTSIDE LAB (SEE SCANNED REPORT) documented in this encounter Care Teams Palletiser Operator Relationship Specialty Start Date End Date Sara Schwarz MD [address] [place] [address] [place] [phone] PCP - General Family Medicine 07/13/21 documented as of this encounter
--- OUTSIDE RECORDS SUMMARY | 2024-01-01 23:21 | External Medical Summary | Summary of Care ---
Author Name Unknown Organization [facility] Address [address] [place] [address] Phone [phone] Care Team Providers Care Fly Worker Name Role Phone Vijaya Garcia MD Primary Care Prov ider Reason for Visit * Reason Onset Date Comments Medication Refill 10/02/2023 Encounter Details Date Type Department Care Team (Late st Contact Info) Description 10/02/2023 Refill Family Medicine [address] [phone] Vijaya Garcia MD [address] [place] [address] [place] [id number] History of amputation of left lower extremity through tibia and fibula (HCC); Chronic bilateral back pain, unspecified back location Allergies Active Allergy Reactions Criticality Noted Date Comments Cetirizine & Related 10/13/2003 zyrtec-much gi distress Vancomycin High 07/20/2020 Other reaction(s): kidney issues, unknown, WORSENING RENAL FUNCTION documented as of this encounter (statuses as of 10/02/2023) Medications Medication Sig Dispensed Refills Start Date [...] region,Polyneuropa thy in other diseases classified elsewhere ([facility]) Take 1 Tablet by mouth at bedtime. In addition to 50 mg tablet 90 Tablet 3 3 Active Xrslf-9-kjrr Ethyl Esters 1 GM Oral CapsuleIndications :Dyslipidemia, [...] THE EVENING 90 Tablet 3 3 Active HYDROcodone-Acetam inophen 5-325 MG Oral TabletIndications: Amputation stump infection (HCC) Take 1 Tablet by mouth every 6 hours as needed for Pain, Mild. 60 Tablet 0 3 Active Enoxaparin Sodium 80 MG/0.8ML Injection Solution Prefilled Syringe (Lovenox) Inject 80 mg under the skin in the morning and 80 mg before bedtime. Per hospital discharge [id number]. 0 3 Active Zinc 15 66 MG Oral Tablet (Zinc Sulfate) Take by mouth once. Patient unsure dosage 0 Active Losartan Potassium 25 MG Oral Tablet (Cozaar)Indication s:HTN, goal below 140/90 TAKE 1 TABLET BY MOUTH EVERY DAY IN THE MORNING 90 Tablet 1 3 Active Warfarin Sodium 3 MG Oral Tablet (Coumadin) Take 1-2 tablets by mouth daily as directed by anticoagulation clinic 60 Tablet 3 4 Active OxyCONTIN 10 MG [...] the morning. Brand necessary. 30 Tablet 0 3 10/02/19 24 Discontinu ed(Refill) documented as of this encounter (statuses as of 10/02/2023) Active Problems Problem Noted Date Diagnosed Date [...] as of this encounter (statuses as of 10/02/2023) Resolved Problems Problem Noted Date Diagnosed Date [...] 10/13/2003 08/01/2019 Overview: acute BENIGN HYPERTENSION 07/31/20 Overview: Modified per HTN Taxonomy. CARDIOMYOPATH IN OTH DIS 11/2016 Dyslipidemia, goal LDL below 100 03/23/2012 documented as of this encounter (statuses as of 10/02/2023) Immunizations Name Administration Dates Next Due COVID-19 mRNA, LNP-s, No Pre serve, 2-Dose Series (Pfizer) 01/19/2021,11/28/2020 COVID-19, MRNA-LNP, 23-24, P F, 30 MCG/0.3 mL, 12 YRS AND ABOVE, IM ([employer] 07/14/2023 Covid-19 Adenovirus, [place] 1 Vector, 2-dose Series, PF ([employer]) 08/10/2021 Covid-19, Mrna, Lnp-s, Pf, B ivalent, 30 Mcg, IM, 12 yrs and above ([employer]) 09/06/2022 Pneumococcal Conjugate Vacc, 13 Valent (Prevnar) [...] and older)(Adacel) 05/30/2008 Varicella Zoster Vaccine (Adult) 06/20/2020,04/0 03/2015 Zoster Vaccine Recombinant (Shingrix) 06/20/2020 documented [...] Telephone Encounter - Vijaya Garcia MD - 10/02/2023 1:32 PM EST Signed Prescriptions: Disp Refills OxyCONTIN 10 MG Oral Tablet ER 12 Hour Abu*30 Tab*0 Sig: Take 1 Tablet by mouth in the morning. Brand necessary.Authorizing Provider: VIJAYA GARCIA---- * Telephone Encounter - Lizzie Rader LPN - 10/02/2023 12:44 PM EST Pending Prescriptions: Disp Refills OxyCONTIN 10 MG Oral Tablet ER 12 Hour Ab*30 Tab*0 Sig: Take 1 Tablet by mouth in the morning. Brand necessary. Last Visit: 09/19/2023 (in office), Visit date not found (telemedicine) Next Visit: 11/07/2023 Last date the medication was ordered: 08/30/23 Patient Active Problem List Diagnosis Code Carpal [...] extremity through tibia and fibula ([facility]) Z89.512 Anxiety F41.9 Polyneuropathy in other diseases classified elsewhere ([facility]) G63 PVD (peripheral vascular disease) ([facility]) I73.9 Rectocele N81.6 Cystocele, midline N81.11 Colostomy status ([facility]) Z93.3 Superior mesenteric artery stenosis ([facility]) K55.1 Acute deep vein thrombosis (DVT) of other vein of lower extremity, unspecified laterality ([facility]) I82.409 Chronic deep vein thrombosis (DVT) of femoral vein of left lower extremity ([facility]) I82.512 Labs: Lab Results Component Value Date/Time CREATININE - [facility] 0.7 07/07/2023 10:23 AM CREATININE - [facility] 0.6 06/24/2020 03:30 PM CREATININE AJIT 110 06/02/2020 02:09 PM CREATININE AJIT - [facility] 151 05/10/2022 05:12 PM CREATININE, RANDOM URINE - [facility] 147 05/10/2022 05:12 PM CREATININE-OUTSIDE LAB 0.81 12/31/2021 12:00 AM CREATININE-OUTSIDE LAB 0.41 (L) 07/20/2021 06:38 AM Lab Results Component Value Date/Time POTASSIUM - [facility] 4.2 07/07/2023 10:23 AM POTASSIUM - [facility] 3.9 06/24/2020 03:30 PM POTASSIUM-OUTSIDE LAB 3.8 12/31/2021 12:00 AM POTASSIUM-OUTSIDE LAB 4.1 07/20/2021 06:38 [...] Care Team (Late st Contact Info) Description 10/02/2023 5:40 PM EST Anticoagulation Pharmacy, [address] [place] [address] [place] [address] 10/09/2023 3:30 PM EST Imaging Radiology [address] [place] [address] 10/10/2023 1:00 PM EST Office Visit Pharmacy, [facility] [address] [facility] [place] [address] [facility] [address] [place] [address] 11/07/2023 8:00 AM EST Office Visit Family Medicine [address] [place] [phone] Jimbo Torres MD [address] [place] [address] [place] [address] 11/15/2023 1:00 PM EST Office Visit Gastroenterology, [facility] [address] [place] [address] Cammy Mosqueda CRNP [address] [place] [address] Health Maintenance Due Date Last Done Comments Cologuard 01/13/1996 Fecal Occult Blood Test 01/13/1996 Sigmoidoscopy 01/13/1996 Zoster Vaccines (3 of 3) 08/15/2020 020, 06/20/2020, 12/30/2014 Mammogram 11/02/2023 11/02/2022, 09/25, 07/30/2020, Additional history exists Depression Screening 01/07/2024 01/06/2023 GFR 07/07/2024 07/07/2023, 07/0 09/2021, 12/31/2021, Additional history exists Albumin/Creatinine Ratio 05/10/2025 05/10/2022 [...] location documented in this encounter Care Teams Fly Worker Relationship Specialty Start Date End Date Vijaya Garcia MD [address] [place] [address] [place] [phone] PCP - General Family Medicine 07/13/21 documented as of this encounter
--- OUTSIDE RECORDS SUMMARY | 2024-01-01 23:21 | External Medical Summary | Summary of Care ---
Author Name Unknown Organization [facility] Address [address] [place] [address] Phone [phone] Care Team Providers Care Finance Director Name Role Phone Sara Schwarz MD Primary Care Prov ider Reason for Visit * Reason Comments Appointment Encounter Details Date Type Department Care Team (Late st Contact Info) Description 10/26/2023 6:10 PM [facility], [facility] [address] [facility] [address] [facility] [address] [facility] [place] [address] Chronic pain syndrome* Allergies Active Allergy Reactions Criticality Noted Date Comments Cetirizine & Related 10/13/2003 zyrtec-much gi distress Vancomycin High 07/20/2020 Other reaction(s): kidney issues, unknown, WORSENING RENAL FUNCTION documented as of this encounter (statuses as of 10/26/2023) Medications Medication Sig Dispensed Refills Start Date [...] hy in other diseases classified elsewhere ([facility]) Take 1 Tablet by mouth at bedtime. In addition to 50 mg tablet 90 Tablet 3 3 Active Tupsf-1-wivg Ethyl Esters 1 GM Oral CapsuleIndications: Dyslipidemia, [...] lower extremity through tibia and fibula ([facility]),Chronic bilateral back pain, unspecified back [...] 80 mg before bedtime. Per hospital discharge [id number]. 0 3 Active Zinc 15 66 MG [...] as of this encounter (statuses as of 10/26/2023) Active Problems Problem Noted Date Diagnosed Date [...] as of this encounter (statuses as of 10/26/2023) Resolved Problems Problem Noted Date Diagnosed Date [...] as of this encounter (statuses as of 10/26/2023) Immunizations Name Administration Dates Next Due COVID-19 mRNA, LNP-s, No Pre serve, 2-Dose Series (Pfizer) 01/19/2021,11/28/2020 COVID-19, MRNA-LNP, 23-24, P F, 30 MCG/0.3 mL, 12 YRS AND ABOVE, IM ([employer]uroSave-ComirnatWear[employer]) 07/14/2023 Covid-19 Adenovirus, [place] 1 Vector, 2-dose Series, PF (Sign[employer]d) 08/10/2021 Covid-19, Mrna, Lnp-s, Pf, B ivalent, [...] as of this encounter Progress Notes * Patricia Gillette PHARM Tech - 10/26/2023 11:01 AM EST Patient Phone Numbers Voicemail is not set up, unable to leave message on patients answering machine to schedule [facility] appointment for [facility] management. [facility] message sent --no Clinic will follow up again in 4 week(s). [Attempt # 2] Thank you, Patricia Gillette Building Inspection Engineer [facility] ([facility]) (formerly Telepharmacy) [phone] 10/26/2023,11:01 AM documented in this encounter Plan of Treatment Upcoming Encounters Date Type Department Care Team (Late st Contact Info) Description 10/30/2023 5:40 PM EST Anticoagulation Pharmacy, [address] [place] [address] [place] [address] 11/07/2023 8:00 AM EST Office Visit Family Medicine [address] [place] [address] Jimbo Torres MD [address] [place] [address] [place] [address] 11/15/2023 1:00 PM EST Office Visit Gastroenterology, [facility] [address] [facility] [place] [address] Cammy Mosqueda CRNP 132 [facility] [place] [address] 11/23/2023 6:10 PM EST Pharmacy Pharmacy, [facility] [address] [facility] [place] [address] [facility] [address] [facility] [place] [address] Health Maintenance Due Date Last Done Comments Cologuard 01/13/1996 Fecal Occult Blood Test 01/13/1996 Sigmoidoscopy 01/13/1996 Zoster Vaccines (3 of 3) 08/15/2020 020, 06/20/2020, 12/30/2014 Depression Screening 01/07/2024 01/06/2023 Mammogram 10/09/2024 10/09/2023, 0204/2023, 10/07/2022, Additional history exists GFR 10/23/2024 10/23/2023, [...] Primary documented in this encounter Care Teams Finance Director Relationship Specialty Start Date End Date Sara Schwarz MD [address] [place] [address] [place] [phone] PCP - General Family Medicine 07/13/21 documented as of this encounter
--- OUTSIDE RECORDS SUMMARY | 2024-01-01 23:21 | External Medical Summary | Summary of Care ---
Author Name Unknown Organization [facility] Address [address] [place] [address] Phone [phone] Care Team Providers Care Ship'S Master Name Role Phone Vijaya Garcia MD Primary Care Prov ider Reason for Visit * Reason Onset Date Comments Medication Refill 10/23/2023 Encounter Details Date Type Department Care Team (Late st Contact Info) Description 10/23/2023 Refill Family Medicine [address] [phone] Vijaya Garcia MD [address] [place] [address] Allergies Active Allergy Reactions Criticality Noted Date Comments Cetirizine & Related 10/13/2003 zyrtec-much gi distress Vancomycin High 07/20/2020 Other reaction(s): kidney issues, unknown, WORSENING RENAL FUNCTION documented as of this encounter (statuses as of 10/23/2023) Medications Medication Sig Dispensed Refills Start Date [...] region,Polyneuropa thy in other diseases classified elsewhere ([facility]) Take 1 Tablet by mouth at bedtime. In addition to 50 mg tablet 90 Tablet 3 3 Active Gljoj-3-tslz Ethyl Esters 1 GM Oral CapsuleIndications :Dyslipidemia, [...] lower extremity through tibia and fibula ([facility]),Chronic bilateral back pain, unspecified back [...] 80 mg before bedtime. Per hospital discharge [id number]. 0 3 Active Zinc 15 66 MG [...] Brand necessary. 30 Tablet 0 4 Active HYDROcodone-Acetam inophen 5-325 MG Oral TabletIndications: Amputation stump infection (HCC) Take 1 Tablet by mouth 2 times a day as needed for Pain, Mild or Pain, Breakthrough. 60 Tablet 0 4 Active Warfarin Sodium 3 MG Oral Tablet (Coumadin) Take 1-2 tablets by mouth daily as directed by anticoagulation clinic 180 Tablet 3 4 Active Warfarin Sodium 3 MG Oral Tablet (Coumadin) Take 1-2 tablets by mouth daily as directed by anticoagulation clinic 60 Tablet 3 4 10/23/19 24 Discontinu ed(Refill) documented as of this encounter (statuses as of 10/23/2023) Active Problems Problem Noted Date Diagnosed Date [...] as of this encounter (statuses as of 10/23/2023) Resolved Problems Problem Noted Date Diagnosed Date [...] as of this encounter (statuses as of 10/23/2023) Immunizations Name Administration Dates Next Due COVID-19 mRNA, LNP-s, No Pre serve, 2-Dose Series (Pfizer) 01/19/2021,11/28/2020 COVID-19, MRNA-LNP, 23-24, P F, 30 MCG/0.3 mL, 12 YRS AND ABOVE, IM (PFIZER-ComirnatSHAPE) 07/14/2023 Covid-19 Adenovirus, [place] 1 Vector, 2-dose Series, PF ([employer] 08/10/2021 Covid-19, Mrna, Lnp-s, Pf, B ivalent, [...] Telephone Encounter - Vijaya Garcia MD - 10/23/2023 3:53 PM EST Signed Prescriptions: Disp Refills Warfarin Sodium 3 MG Oral Tablet (Coumadin)180 Ta*3 Sig: Take 1-2 tablets by mouth daily as directed by anticoagulation clinic Authorizing Provider: VIJAYA GARCIA * Telephone Encounter - Yolanda Bowling RN - 10/23/2023 3:52 PM ESTPending Prescriptions: Disp Refills Warfarin Sodium 3 MG Oral Tablet (Coumadin)180 Ta*3 Sig: Take 1-2 tablets by mouth daily as directed by anticoagulation clinic * Telephone Encounter - Mireille Clara Sherrell, EVONNE - 10/23/2023 11:02 AM EST Did you pend patient's preferred pharmacy and medication before forwarding?yes Pharmacy: [id number] [id number] [facility] Pending Prescriptions: Disp Refills Warfarin Sodium 3 MG Oral Tablet (Coumadi*60 Tab*3 Sig: Take 1-2 tablets by mouth daily as directed by anticoagulation clinic Last Visit: 09/19/2023 (in office), Visit date not found (telemedicine) Next Visit: 11/07/2023 If no future appointments scheduled, and last appointment is greater than a year ago, please schedule patient for a follow-up appointment Last date the medication was ordered: 09.28.23 Is this request for a controlled substance?No Urine Drug Screen: Results for orders placed [...] Labs: Lab Results Component Value Date/Time CREAT 0.7 07/07/2023 10:23 AM CREAT 0.81 12/31/2021 12:00 AM CREAT 0.41 (L) 07/20/2021 06:38 AM CREAT 0.6 06/24/2020 03:30 PM POTASSIUM 4.2 07/07/2023 10:23 AM POTASSIUM 3.8 12/31/2021 12:00 AM POTASSIUM 4.1 07/20/2021 06:38 AM [...] Description 10/26/2023 6:10 PM EST Pharmacy Pharmacy, [facility] [address] [place] [address] [facility] [address] [place] [address] 10/30/2023 5:40 PM EST Anticoagulation Pharmacy, [address] [place] [address] [place] [address] 11/07/2023 8:00 AM EST Office Visit Family Medicine [address] [place] [phone] Jimbo Torres MD [address] [place] [address] [place] [address] 11/15/2023 1:00 PM EST Office Visit Gastroenterology, [facility] [address] [place] [address] Cammy Mosqueda CRNP [address] [place] [address] Health Maintenance Due Date Last Done Comments Cologuard 01/13/1996 Fecal Occult Blood Test 01/13/1996 Sigmoidoscopy 01/13/1996 Zoster Vaccines (3 of 3) 08/15/2020 020, 06/20/2020, 12/30/2014 Depression Screening 01/07/2024 01/06/2023 GFR 07/07/2024 07/07/2023, 09/2021, 12/31/2021, Additional history exists Mammogram 10/09/2024 10/09/2023, 04/2023, 10/07/2022, Additional history exists Albumin/Creatinine Ratio 05/10/2025 [...] filedocumented as of this encounter Care Teams Ship'S Master Relationship Specialty Start Date End Date Vijaya Garcia MD [address] [place] [address] [place] [phone] PCP - General Family Medicine 07/13/21 documented as of this encounter
--- OUTSIDE RECORDS SUMMARY | 2024-01-01 23:21 | External Medical Summary | Summary of Care ---
Author Name Unknown Organization [facility] Address [address] [place] [address] Phone [phone] Care Team Providers Care Blockmason Name Role Phone Sara Schwarz MD Primary Care Prov ider Reason for Visit * Reason Comments Dosage Adjustment Via Phone (anticoag Cl inic) Encounter Details Date Type Department Care Team (Latest Contact Info) Description 10/16/2023 5:[address] [facility] Anticoagulation Pharmacy, [address] [place] [address] [place] [address] Acute deep vein thrombosis (DVT) of other vein of lower extremity, unspecified laterality (HCC)* Allergies Active Allergy Reactions Criticality Noted Date Comments Cetirizine & Related 10/13/2003 zyrtec-much gi distress Vancomycin High 07/20/2020 Other reaction(s): kidney issues, unknown, WORSENING RENAL FUNCTION documented as of this encounter (statuses as of 10/16/2023) Medications Medication Sig Dispensed Refills Start Date [...] region,Polyneuropat hy in other diseases classified elsewhere ([facility]) Take 1 Tablet by mouth at bedtime. In addition to 50 mg tablet 90 Tablet 3 3 Active Gfugf-0-htht Ethyl Esters 1 GM Oral CapsuleIndications: Dyslipidemia, [...] left lower extremity through tibia and fibula ([facility]),Chronic bilateral back pain, unspecified back location [...] 80 mg before bedtime. Per hospital discharge [id number]. 0 3 Active Zinc 15 66 MG [...] Pain, Breakthrough. 60 Tablet 0 4 Active documented as of this encounter (statuses as of 10/16/2023) Active Problems Problem Noted Date Diagnosed Date [...] as of this encounter (statuses as of 10/16/2023) Resolved Problems Problem Noted Date Diagnosed Date [...] as of this encounter (statuses as of 10/16/2023) Immunizations Name Administration Dates Next Due COVID-19 mRNA, LNP-s, No Pre serve, 2-Dose Series ([email or web address]) 01/19/2021,11/28/2020 COVID-19, MRNA-LNP, 23-24, P F, 30 MCG/0.3 mL, 12 YRS AND ABOVE, IM (Vendormate-ComirnatDealCloud) 07/14/2023 Covid-19 Adenovirus, [place] 1 Vector, 2-dose Series, PF (Fixya) 08/10/2021 Covid-19, Mrna, Lnp-s, Pf, B ivalent, [...] this encounter Progress Notes * Janae Khan, [facility] - 10/16/2023 3:51 PM EST Medication Therapy Disease Management - Anticoagulation Patient: Eda Sousa Sean | : 1950 Subjective Contacts Type Contact Phone/Fax 10/16/2023 03:01 PM EST Phone (Incoming) Edison (Other) [phone] 10/16/2023 03:55 PM EST Phone (Outgoing) Sean Eda M (Self) [phone] (H) Spoke to Patient Patient-Reported Symptoms: Patient Findings Negatives: Signs/symptoms of thrombosis, Signs/symptoms of bleeding, Change in health, Change in alcohol use, Change in activity, Upcoming invasive procedure, Missed doses, Extra doses, Change in medications, Change in diet/appetite, Bruising Objective Current Warfarin Dose As of 10/16/2023 Warfarin maintenance plan: 6 mg (3 mg x 2) every Mon, Mon; 4.5 mg (3 mg x 1.5) all other days INR Result As of 10/16/2023 INR goal: 2.0-3.0 INR used for dosin.7 (10/16/2023) Assessment & Plan Warfarin Plan As of 10/16/2023 Full warfarin instructions: 6 mg every Tue, Bettie; 4.5 mg all other days No change documented: Janea Khan sukhjinder Next INR check: 10/30/2023 Repeat PT/INR in 2 week(s) Weekly dose: not changed Additional Dosing Information: Description Takes warfarin AM Faxed orders to [facility] at [phone]. # [phone] Ok to use fingerstick Dx: Acute DVT I82.409 Ordering provider: Sara Schwarz MD Please fax INR results to [facility] at [phone] [facility] can be reached at with any questions or problems Janae Khan [facility] Clinical Pharmacist 10/16/2023, 3:51 PM * Aliyah Bob splitting machine feeder - 10/16/2023 3:01 PM EST Caller's name: [facility] call back number(OFFICE NUMBER FOR ): [phone] Reason for call: nursing facility, [facility], calling with INR results. Result is 2.7 which was drawn on 10/16/23. Patient is not being discharged. Thank you, Aliyah Bob Correspondence Section Supervisor [facility] 10/16/2023,3:01 PM documented in this encounter Plan of Treatment Upcoming Encounters Date Type Department Care Team (Late st Contact Info) Description 10/26/2023 6:10 PM EST Pharmacy Pharmacy, [facility] [address] [facility] [place] [address] [place] [address] 10/30/2023 5:40 PM EST Anticoagulation Pharmacy, [address] [place] [address] [place] [address] 11/07/2023 8:00 AM EST Office Visit Family Medicine [address] [place] [phone] Jimbo Torres MD [address] [place] [address] [place] [address] 11/15/2023 1:00 PM EST Office Visit Gastroenterology, [facility] [address] [place] [address] Cammy Mosqueda CRNP [address] [place] [address] Health Maintenance Due Date Last Done Comments Cologuard 01/13/1996 Fecal Occult Blood Test 01/13/1996 Sigmoidoscopy 01/13/1996 Zoster Vaccines (3 of 3) 08/15/2020 020, 06/20/2020, 12/30/2014 Depression Screening 01/07/2024 01/06/2023 GFR 07/07/2024 07/07/2023, 0709/2021, 12/31/2021, Additional history exists Mammogram 10/09/2024 10/09/2023, [...] Date/Time Associated Diagnosis Comments OUTSIDE LAB-PT/INR Routine 10/16/2023 documented in this encounter Results * OUTSIDE LAB-PT/INR (10/16/2023) INR-OUTSIDE LAB 2.7 History Per Patient LABORATORY documented in this encounter Visit Diagnoses Diagnosis Acute deep vein thrombosis (DVT) of other vein of lower extremity, unspecified laterality (HCC)- Primary documented in this encounter Care Teams Blockmason Relationship Specialty Start Date End Date Sara Schwarz MD [address] [place] [address] [place] [address] PCP - General Family Medicine 07/13/21 documented as of this encounter"
--- OUTSIDE RECORDS SUMMARY | 2024-01-01 23:21 | External Medical Summary | Summary of Care ---
Author Name Unknown Organization [facility] Address [address] [place] [address] Phone [phone] Care Team Providers Care Manufacture Specialist Name Role Phone Sara Schwarz MD Primary Care Prov ider Encounter Details Date Type Department Care Team (Late st Contact Info) Description 10/02/2023 Result Scan Unspecified Department <No scans attached> Allergies Active Allergy Reactions Criticality Noted Date Comments Cetirizine & Related 10/13/2003 zyrtec-much gi distress Vancomycin High 07/20/2020 Other reaction(s): kidney issues, unknown, WORSENING RENAL FUNCTION documented as of this encounter (statuses as of 10/03/2023) Medications Medication Sig Dispensed Refills Start Date [...] region,Polyneuropat hy in other diseases classified elsewhere ([facility]) Take 1 Tablet by mouth at bedtime. In addition to 50 mg tablet 90 Tablet 3 3 Active Zylgg-2-daqg Ethyl Esters 1 GM Oral CapsuleIndications: Dyslipidemia, [...] left lower extremity through tibia and fibula ([facility]),Chronic bilateral back pain, unspecified back location [...] THE EVENING 90 Tablet 3 3 Active HYDROcodone-Acetami nophen 5-325 MG Oral TabletIndications:A mputation stump infection (HCC) Take 1 Tablet by mouth every 6 hours as needed for Pain, Mild. 60 Tablet 0 3 Active Enoxaparin Sodium 80 MG/0.8ML Injection Solution Prefilled Syringe (Lovenox) Inject 80 mg under the skin in the morning and 80 mg before bedtime. Per hospital discharge [id number]. 0 3 Active Zinc 15 66 MG [...] as of this encounter (statuses as of 10/03/2023) Active Problems Problem Noted Date Diagnosed Date [...] as of this encounter (statuses as of 10/03/2023) Resolved Problems Problem Noted Date Diagnosed Date [...] as of this encounter (statuses as of 10/03/2023) Immunizations Name Administration Dates Next Due COVID-19 mRNA, LNP-s, No Pre serve, 2-Dose Series ([employer]) 01/19/2021,11/28/2020 COVID-19, MRNA-LNP, 23-24, P F, 30 MCG/0.3 mL, 12 YRS AND ABOVE, IM ([facility]) 07/14/2023 Covid-19 Adenovirus, [place] 1 Vector, 2-dose Series, PF (A[employer]en[employer]) 08/10/2021 Covid-19, Mrna, Lnp-s, Pf, B ivalent, [...] Care Team (Late st Contact Info) Description 10/09/2023 3:00 PM EST Laboratory Laboratory [address] [place] [phone] [place] [address] 10/09/2023 3:30 PM EST Imaging Radiology [address] [place] [address] 10/10/2023 7:00 AM EST Anticoagulation Pharmacy, [address] [place] [address] [place] [address] 10/10/2023 1:00 PM EST Office Visit Pharmacy, [facility] [address] [facility] [place] [address] [facility] [place] [address] 11/07/2023 8:00 AM EST Office Visit Family Medicine [address] [place] [phone] Jimbo Torres MD [address] [place] [address] [place] [address] 11/15/2023 1:00 PM EST Office Visit Gastroenterology, [facility] [address] [place] [address] Cammy Mosqueda CRNP [address] [place] [address] Health Maintenance Due Date Last Done Comments [...] Date/Time Associated Diagnosis Comments OUTSIDE LAB RESULTS 10/02/2023 documented in this encounter Results * OUTSIDE LAB RESULTS (10/02/2023) 10/02/2023 No Physician Data Unknown LABORATORY documented in this encounter Care Teams Manufacture Specialist Relationship Specialty Start Date End Date Sara Schwarz MD [address] [place] [address] [place] [phone] PCP - General Family Medicine 07/13/21 documented as of this encounter
--- OUTSIDE RECORDS SUMMARY | 2024-01-01 23:21 | External Medical Summary | Continuity of Care Document ---
Author Name Unknown Organization [facility] [id number] Address [address] [place] [address] [phone] Care Team Providers Care Manager Material Name Role Phone Sara Santos Primary Care Physician [phone] [id number] Date(s): 10/06/23 - 10/06/23 [facility] 0 [place] [facility] [address] [facility] [address] [address] [place] [phone] Encounter Diagnosis Superficial skin infection(Discharge Diagnosis) - 10/06/23 Discharge Disposition: Home or Self Care Attending Physician: MD Renner Paul S Allergies, Adverse Reactions, Alerts Substance Reaction Severity Status vancomycin kidney issues Active Neurontin rash Active ZyrTEC bowel cramping Active Immunizations Given and Recorded Vaccine Date Status Refusal Reason SARS-CoV-2 (COVID-19) mRNA BNT-162b2 vax 1 08/10/21 Recorded SARS-CoV-2 (COVID-19) mRNA BNT-162b2 vax 2 01/19/21 Recorded SARS-CoV-2 (COVID-19) mRNA BNT-162b2 vax 3 12/29/20 Recorded zoster vaccine, inactivated 4 06/20/20 Recorded pneumococcal 23-valent vaccine 5 05/25/20 Recorded pneumococcal 23-valent vaccine 6 07/31/16 Recorded tetanus/diphtheria/pertuss, acel (Tdap) 7 12/20/18 Recorded tetanus/diphtheria/pertuss, acel (Tdap) 8 05/30/08 Recorded pneumococcal 13-valent vaccine 9 09/01/16 Recorded influenza virus vaccine, H1N1 10 09/22/09 Recorded 1Result Comment: 2022-04-12: Historical information-source unspecified 2Result Comment: 2022-04-12: Historical information-source unspecified 3Result Comment: 2022-04-12: Historical information-source unspecified 4Result Comment: 2022-04-12: Historical information-source unspecified 5Result Comment: 2022-04-12: Historical information-source unspecified 6Result Comment: 2022-04-12: Historical information-source unspecified 7Result Comment: 2022-04-12: Historical information-source unspecified 8Result Comment: 2022-04-12: Historical information-source unspecified 9Result Comment: 2022-04-12: Historical information-source unspecified 10Result Comment: 2022-04-12: Historical information-source unspecified Medications acetaminophen 500 mg oral tablet Start: 02/23/22 11:04:00 EDT, 2 tab, PO, q8h Start Date: 02/23/22 Status: Ordered acetaminophen-HYDROcodone 325 mg-5 mg oral tablet Start: 04/15/22 14:57:00 EDT, 1 tab, PO, q6h, Disp# 20 tab, Refills: 0, PRN: as needed for pain, Pharmacy: [facility] [place] Start Date: 04/15/22 Status: Ordered alendronate 70 mg oral tablet PLEASE SEE ATTACHED FOR DETAILED DIRECTIONS Start Date: 07/11/23 Status: Ordered amitriptyline Start: 02/22/17 12:29:00 EDT, 75 mg =, PO, qhs Start Date: 02/22/17 Status: Ordered amLODIPine 5 mg oral tablet Start: 02/17/22 8:27:00 EDT, 1 tab, PO, qAM Start Date: 02/17/22 Status: Ordered amLODIPine-atorvastatin 10 mg-10 mg oral tablet Start: 03/18/22 12:47:00 EDT, 1 tab, PO, Daily Start Date: 03/18/22 Status: Ordered aspirin Start: 02/17/22 8:33:00 EDT, 81 mg =, PO, bid Start Date: 02/17/22 Status: Ordered atorvastatin Start: 03/03/21 12:37:00 EDT, 20 mg =, PO, qPM Start Date: 03/03/21 Status: Ordered busPIRone Start: 03/03/21 12:37:00 EDT, 10 mg =, PO, bid Start Date: 03/03/21 Status: Ordered losartan 25 mg oral tablet Start: 02/17/22 8:27:00 EDT, 1 tab, PO, qAM Start Date: 02/17/22 Status: Ordered multivitamin Start: 02/22/17 12:33:00, 1 tab, PO, Daily Start Date: 02/22/17 Status: Ordered [employer] Essentials Start: 03/03/21 12:38:00 EDT, 4 cap, PO, bid Start Date: 03/03/21 Status: Ordered OxyCONTIN 20 mg oral tablet, extended release Start: 02/22/17 12:33:00 EDT, See Instructions, Refills: 0, 1/2 tab PO q12h Start Date: 02/22/17 Status: Ordered Polysaccharide Iron (as elemental iron) 150 mg oral capsule Start: 12/31/21 12:33:00 EDT, See Instructions, 1 cap po daily on Monday and Monday Start Date: 12/31/21 Status: Ordered pregabalin 100 mg oral capsule TAKE 1 CAPSULE BY MOUTH EVERY DAY IN THE MORNING , AT NOON, AND BEFORE BEDTIME Start Date: 07/11/23 Status: Ordered tiZANidine Start: 03/03/21 12:39:00 EDT, See Instructions, 4 mg--take 1/2 to 1 tab po daily prn Start Date: 03/03/21 Status: Ordered warfarin 3 mg oral tablet Start: 10/06/23 11:08:00 EST Start Date: 10/06/23 Status: Ordered Mental Status 10/06/23 Barriers to Learning one year None evide nt Mandatory Health Literacy Documentation Yes Health Literacy Communication Barriers N ever Primary Language Thai Problem List Condition Confirmation Course Effective Dates Status Health St atus Informant S/p lower limb amputation Confirmed Active 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, left hip Confirmed Active Superficial skin infection Confirmed Active Inflammatory bowel disease Confirmed Active Radiation-induced bone injury Confirmed Active Crohn's disease, small and large intestine Confirmed Active Tobacco user Confirmed Active Diagnosis Diagnosis Type Effective Dates Health Status Clinical Service Informant Superficial skin infection Discharge Diagnosis 10/06/23 Procedures Procedure Date Related Diagnosis Body Site Status Amputation 2022 Completed Colostomy 2 06/2021 Completed 1L 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 The patient is accompanied by her son today. The patientcontinues to see a home health nurse has been treating her wounds. The initial wound happened in early June 2023.. The patient has been seeing Dr. Barba, who believes the pustules are a result of MRSA. He has placed her on an IV antibiotic.It sounds like she had 2 doses of long-acting IVantibiotics that seems to help overall. Then several days ago she had one recurrent eruption anteriorly and one posteriorly. She is not on oral antibiotics Focusing on the patient's LEFT leg: Prior lesions have largely healed Two recurrent pustules one anteriorly and posteriorly that just popped upwithin the last few days. No knee joint swelling IMPRESSION: 73 year old female 2.5 monthss/p left amputation stump status post irrigation and debridement, ongoingrecurrentsubcutaneous abscesses.. MRSA PLAN: Continue with infectious disease follow-up with antibiotics as needed Continue with wound healing measures and continue to monitor Follow up in 1 month ATTESTATION: IBecky, scribing for and in the presence of, Bolivar Renner, on this date,:47:54. Electronic Signature on File Electronically Reviewed/Signed by: Becky Valdivia Author Signature Dt/Tm:10/06/2023 01:04 PM Electronically Reviewed/Signed by: Bolivar Renner MD Cosigner Signature Dt/Tm: 10/06/2023 04:13 PM Division of Sports Medicine [place] Patient Care team information Care Team Personnel Name: MD Santos Kristen L Position: Referring DIRECT Member Role: Primary Care Provider Address: Address: [address] [place] [id number] Name: Brian Kyle Blaine Position: Pharmacist Member Role: Pharmacy - Lifetime Name: Brian Lewis Kyle Position: Pharmacist Member Role: Pharmacy - Lifetime Address: Address: [address] [place] [address] [place] [address] [place]
--- OUTSIDE RECORDS SUMMARY | 2024-01-01 23:21 | External Medical Summary | Summary of Care ---
Author Name Unknown Organization [facility] Address [address] [place] [address] Phone [phone] Care Team Providers Care Shot Core Drill Operator Helper Name Role Phone Sara Schwarz MD Primary Care Prov ider Reason for Visit * Reason Onset Date Comments Appointment 08/01/2023 Dressing questio n Encounter Details Date Type Department Care Team (Late st Contact Info) Description 08/01/2023 Telephone Family Medicine [address] [phone] Sara Schwarz MD [address] [place] [address] [place] [address] Appointment (Dressing question) Allergies Active Allergy Reactions Criticality Noted Date Comments Cetirizine & Related 10/13/2003 zyrtec-much gi distress Vancomycin High 07/20/2020 Other reaction(s): kidney issues, unknown, WORSENING RENAL FUNCTION documented as of this encounter (statuses as of 10/31/2023) Medications Medication Sig Dispensed Refills Start Date [...] lumbar region,Polyneuropathy in other diseases classified elsewhere ([facility]) Take 1 Tablet by mouth at bedtime. In addition to 50 mg tablet 90 Tablet 3 02/09/2023 Active Pemej-7-fwgz Ethyl Esters 1 GM Oral CapsuleIndications:Dy slipidemia, [...] left lower extremity through tibia and fibula ([facility]),Chronic bilateral back pain, unspecified back location Take 1 Tablet by mouth 2 times a day as needed for Pain, Severe. 60 Tablet 0 08/01/2023 Active documented as of this encounter (statuses as of 10/31/2023) Active Problems Problem Noted Date Diagnosed Date [...] as of this encounter (statuses as of 10/31/2023) Resolved Problems Problem Noted Date Diagnosed Date [...] as of this encounter (statuses as of 10/31/2023) Immunizations Name Administration Dates Next Due COVID-19 mRNA, LNP-s, No Pre serve, 2-Dose Series ([employer]) 01/19/2021,11/28/2020 COVID-19, MRNA-LNP, 23-24, P F, 30 MCG/0.3 mL, 12 YRS AND ABOVE, IM ([employer]) 07/14/2023 Covid-19 Adenovirus, [place] 1 Vector, 2-dose Series, PF ([employer]) 08/10/2021 Covid-19, Mrna, Lnp-s, Pf, B ivalent, 30 Mcg, IM, 12 yrs and above ([employer]) 09/06/2022 Pneumococcal Conjugate Vacc, 13 Valent (Prevnar) [...] Telephone Encounter - Sara Schwarz MD - 08/01/2023 12:59 PM EST She will need to bring the Novacem Ag with her. We do not have it in clinic stock. * Telephone Encounter - Eloisa oLwry LPN - 08/01/2023 8:40 AM EST Patient calling regarding her appt. She saw Dr. Renner yesterday for follow up from her post irrigation, debridement of left amputation stump wounds on 07/21. Dressing and Aquacel Ag packing was removed. She has 2 or 3 pinpoint areas of purulent "material" pustules on the superior medial aspect of the stump. Tender to palpation. Dr. Renner was able to express small amount of purulent drainage from these pinholes. Documentation from office notes for plan states that her daughter will put the Aquacel Ag in the wounds when the patient got home. Eda states that they didn't teach her daughter how to do the AquacelAg or dress the wound/stump. Patient currently only has an ABD pad on the area placed at her doctors appt yesterday. Scan from Dr. Aguilar's appt is in patients chart. doesn't see the patient until tomorrow. Patient is asking that Dr. Rui Lind assess the area and if she's willing to assist with packing and dressing. She is going to bring her supplies to her appt at 340pm. documented in this encounter Plan of Treatment Upcoming Encounters Date Type Department Care Team (Late st Contact Info) Description 11/07/2023 8:00 AM EST Office Visit Family Medicine [address] [place] [phone] Jimbo Torres MD [address] [place] [address] [place] [address] 11/13/2023 5:40 PM EST Anticoagulation Pharmacy, [address] [place] [address] [place] [address] 11/15/2023 1:00 PM EST Office Visit Gastroenterology, [facility] [address] [facility] [place] [address] Cammy Mosqueda CRNP [address] [place] [address] 11/23/2023 6:10 PM EST Pharmacy Pharmacy, [facility] [address] [place] [address] [facility] [address] [place] [address] Health Maintenance Due Date Last Done Comments [...] Not on filedocumented as of this encounter Additional Health Concerns Infection Onset Date Last Indicated Resolved Time MRSA 07/14/2023 07/14/2023 09/12/2023 12:2 0 AM EST documented as of this encounter Care Teams Shot Core Drill Operator Helper Relationship Specialty Start Date End Date Sara Schwarz MD [address] [place] [address] [place] [phone] PCP - General Family Medicine 07/13/21 documented as of this encounter
--- OUTSIDE RECORDS SUMMARY | 2024-01-01 23:21 | External Medical Summary | Summary of Care ---
Author Name Unknown Organization [facility] Address [address] [place] [address] Phone [phone] Care Team Providers Care Nuclear Weapons Mechanical Specialist Name Role Phone Sara Schwarz MD Primary Care Prov ider Reason for Visit * Reason Comments Dosage Adjustment Via Phone (anticoag Cl inic) Encounter Details Date Type Department Care Team (Latest Contact Info) Description 10/30/2023 5:40 PM [facility] Anticoagulation Pharmacy, [address] [place] [address] [place] [address] Acute deep vein thrombosis (DVT) of other vein of lower extremity, unspecified laterality (HCC)* Allergies Active Allergy Reactions Criticality Noted Date Comments Cetirizine & Related 10/13/2003 zyrtec-much gi distress Vancomycin High 07/20/2020 Other reaction(s): kidney issues, unknown, WORSENING RENAL FUNCTION documented as of this encounter (statuses as of 10/30/2023) Medications Medication Sig Dispensed Refills Start Date [...] region,Polyneuropat hy in other diseases classified elsewhere ([facility]) Take 1 Tablet by mouth at bedtime. In addition to 50 mg tablet 90 Tablet 3 3 Active Tcuyh-9-bitf Ethyl Esters 1 GM Oral CapsuleIndications: Dyslipidemia, [...] left lower extremity through tibia and fibula ([facility]),Chronic bilateral back pain, unspecified back [...] 80 mg before bedtime. Per hospital discharge [id number]. 0 3 Active Zinc 15 66 MG [...] as of this encounter (statuses as of 10/30/2023) Active Problems Problem Noted Date Diagnosed Date [...] as of this encounter (statuses as of 10/30/2023) Resolved Problems Problem Noted Date Diagnosed Date [...] as of this encounter (statuses as of 10/30/2023) Immunizations Name Administration Dates Next Due COVID-19 mRNA, LNP-s, No Pre serve, 2-Dose Series ([employer]) 01/19/2021,11/28/2020 COVID-19, MRNA-LNP, 23-24, P F, 30 MCG/0.3 mL, 12 YRS AND ABOVE, IM ([employer]) 07/14/2023 Covid-19 Adenovirus, [place] 1 Vector, 2-dose Series, PF ([employer]) 08/10/2021 Covid-19, Mrna, Lnp-s, Pf, B ivalent, [...] this encounter Progress Notes * Janae Khan, [facility] - 10/30/2023 1:31 PM EST Medication Therapy Disease Management - Anticoagulation Patient: Eda Sousa Matiaslorrainealli | : 1950 Subjective Contacts Type Contact Phone/Fax 10/30/2023 01:35 PM EST Phone (Outgoing) Eda Estrada (Self) [phone] (H) Spoke to Patient Patient-Reported Symptoms: Patient Findings Negatives: Signs/symptoms of thrombosis, Signs/symptoms of bleeding, Change in health, Change in alcohol use, Change in activity, Upcoming invasive procedure, Missed doses, Extra doses, Change in medications, Change in diet/appetite, Bruising Objective Current Warfarin Dose As of 10/30/2023 Warfarin maintenance plan: 6 mg (3 mg x 2) every Tue, Bettie; 4.5 mg (3 mg x 1.5) all other days INR Result As of 10/30/2023 INR goal: 2.0-3.0 INR used for dosin.1 (10/30/2023) Assessment & Plan Warfarin Plan As of 10/30/2023 Full warfarin instructions: 6 mg every Tue, Bettie; 4.5 mg all other days No change documented: Janae Khan sukhjinder Next INR check: 11/13/2023 Repeat PT/INR in 2 week(s) Weekly dose: not changed Additional Dosing Information: Description Takes warfarin AM Faxed orders to [facility] at [phone]. Ok to use fingerstick Dx: Acute DVT I82.409 Ordering provider: Sara Schwarz MD Please fax INR results to [facility] at [phone] [facility] can be reached at with any questions or problems Janae Khan [facility] Clinical Pharmacist 10/30/2023, 1:31 PM * Una Mary change lead - 10/30/2023 1:27 PM EST Lucía nurse Mary calling in today's INR 2.1. Una Mary MA Offset Second Press Operator I [facility] (formerly [facility]pharm[facility]) documented in this encounter Plan of Treatment Upcoming Encounters Date Type Department Care Team (Late st Contact Info) Description 11/07/2023 8:00 AM EST Office Visit Family Medicine [address] [place] [address] Jimbo Torres MD [address] [place] [address] [place] [address] 11/13/2023 5:40 PM EST Anticoagulation Pharmacy, [address] [place] [address] [place] [address] 11/15/2023 1:00 PM EST Office Visit Gastroenterology, [facility] [address] [place] [address] Cammy Mosqueda CRNP [address] [place] [address] 11/23/2023 6:10 PM EST Pharmacy Pharmacy, [facility] [address] [place] [address] [facility] [address] [place] [address] Health Maintenance Due Date Last Done Comments [...] Date/Time Associated Diagnosis Comments OUTSIDE LAB-PT/INR Routine 10/30/2023 documented in this encounter Results * OUTSIDE LAB-PT/INR (10/30/2023) INR-OUTSIDE LAB 2.1 History Per Patient LABORATORY documented in this encounter Visit Diagnoses Diagnosis Acute deep vein thrombosis (DVT) of other vein of lower extremity, unspecified laterality (HCC)- Primary documented in this encounter Care Teams Nuclear Weapons Mechanical Specialist Relationship Specialty Start Date End Date Sara Schwarz MD [address] [place] [address] [place] [address] PCP - General Family Medicine 07/13/21 documented as of this encounter"
--- OUTSIDE RECORDS SUMMARY | 2024-01-01 23:21 | External Medical Summary | Summary of Care ---
Author Name Unknown Organization [facility] Address [address] [place] [address] Phone [phone] Care Team Providers Care Flight Nurse Name Role Phone Sara Schwarz MD Primary Care Prov ider Reason for Visit * Reason Onset Date Comments Advice 10/09/2023 Encounter Details Date Type Department Care Team (Late st Contact Info) Description 10/09/2023 Telephone Family [address] [address] Janae Khan, [address] [phone] Advice Allergies Active Allergy Reactions Criticality Noted Date Comments Cetirizine & Related 10/13/2003 zyrtec-much gi distress Vancomycin High 07/20/2020 Other reaction(s): kidney issues, unknown, WORSENING RENAL FUNCTION documented as of this encounter (statuses as of 10/09/2023) Medications Medication Sig Dispensed Refills Start Date [...] region,Polyneuropat hy in other diseases classified elsewhere ([facility]) Take 1 Tablet by mouth at bedtime. In addition to 50 mg tablet 90 Tablet 3 3 Active Dqpoc-5-lpsu Ethyl Esters 1 GM Oral CapsuleIndications: Dyslipidemia, [...] left lower extremity through tibia and fibula ([facility]),Chronic bilateral back pain, unspecified back location [...] 80 mg before bedtime. Per hospital discharge [id number]. 0 3 Active Zinc 15 66 MG [...] as of this encounter (statuses as of 10/09/2023) Active Problems Problem Noted Date Diagnosed Date [...] as of this encounter (statuses as of 10/09/2023) Resolved Problems Problem Noted Date Diagnosed Date [...] as of this encounter (statuses as of 10/09/2023) Immunizations Name Administration Dates Next Due COVID-19 mRNA, LNP-s, No Pre serve, 2-Dose Series (Pfizer) 01/19/2021,11/28/2020 COVID-19, MRNA-LNP, 23-24, P F, 30 MCG/0.3 mL, 12 YRS AND ABOVE, IM ([employer]) 07/14/2023 Covid-19 Adenovirus, [place] 1 Vector, 2-dose Series, PF ([employer]) 08/10/2021 Covid-19, Mrna, Lnp-s, Pf, B ivalent, [...] encounter Miscellaneous Notes * Telephone Encounter - Zay Bass RPh - 10/09/2023 10:28 AM EST Called and informed patient that the upcoming INR is to be drawn on 10/16/23 by . Left voicemail. Zay Bass, PharmD, BCACP, [facility] Clinical Pharmacist 10/09/2023, 10:28 AM * Telephone Encounter - Deepali Strong LPN - 10/09/2023 9:54 AM EST Patient is calling. She thought she had a lab appt. Today to get her blood drawn. She has an appt. Today for a mammogram. She did have blood drawn last Monday. She is confused as to what she needs todo. Please advise. Please call her back. documented in this encounter Plan of Treatment Upcoming Encounters Date Type Department Care Team (Late st Contact Info) Description 10/09/2023 3:30 PM EST Imaging Radiology [address] [place] [address] 10/13/2023 2:40 PM EST Office Visit Pharmacy, [facility] [address] [facility] [place] [address] [facility] [place] [address] 10/16/2023 5:40 PM EST Anticoagulation Pharmacy, [address] [place] [address] [place] [address] 11/07/2023 8:00 AM EST Office Visit Family Medicine [address] [place] [phone] Jimbo Torres MD [address] [place] [address] [place] [address] 11/15/2023 1:00 PM EST Office Visit Gastroenterology, [facility] [address] [facility] [place] [address] Cammy Mosqueda CRNP [address] [place] [address] Health Maintenance Due Date Last Done Comments [...] filedocumented as of this encounter Care Teams Flight Nurse Relationship Specialty Start Date End Date Sara Schwarz MD [address] [place] [address] [place] [address] PCP - General Family Medicine 07/13/21 documented as of this encounter
--- OUTSIDE RECORDS SUMMARY | 2024-01-01 23:21 | External Medical Summary | Summary of Care ---
Author Name Unknown Organization [facility] Address [address] [place] [address] Phone [phone] Care Team Providers Care Legal Administrator Name Role Phone Sara Schwarz MD Primary Care Prov ider Encounter Details Date Type Department Care Team (Late st Contact Info) Description 10/23/2023 Result Scan Unspecified Department <No scans attached> Allergies Active Allergy Reactions Criticality Noted Date Comments Cetirizine & Related 10/13/2003 zyrtec-much gi distress Vancomycin High 07/20/2020 Other reaction(s): kidney issues, unknown, WORSENING RENAL FUNCTION documented as of this encounter (statuses as of 10/27/2023) Medications Medication Sig Dispensed Refills Start Date [...] other diseases classified elsewhere ([facility]) Take 1 Tablet by mouth at bedtime. In addition to 50 mg tablet 90 Tablet 3 3 Active Grbpz-3-bqvz Ethyl Esters 1 GM Oral CapsuleIndications: Dyslipidemia, [...] through tibia and fibula ([facility]),Chronic bilateral back pain, unspecified back location Take [...] 80 mg before bedtime. Per hospital discharge [id number]. 0 3 Active Zinc 15 66 MG [...] as of this encounter (statuses as of 10/27/2023) Active Problems Problem Noted Date Diagnosed Date [...] as of this encounter (statuses as of 10/27/2023) Resolved Problems Problem Noted Date Diagnosed Date [...] as of this encounter (statuses as of 10/27/2023) Immunizations Name Administration Dates Next Due COVID-19 mRNA, LNP-s, No Pre serve, 2-Dose Series ([employer] 01/19/2021,11/28/2020 COVID-19, MRNA-LNP, 23-24, P F, 30 MCG/0.3 mL, 12 YRS AND ABOVE, IM ([facility]) 07/14/2023 Covid-19 Adenovirus, [place] 1 Vector, 2-dose Series, PF ([employer]) 08/10/2021 Covid-19, Mrna, Lnp-s, Pf, B ivalent, [...] Description 10/30/2023 5:40 PM EST Anticoagulation Pharmacy, [address] [place] [address] [place] [address] 11/07/2023 8:00 AM EST Office Visit Family Medicine [address] [place] [phone] Jimbo Torres MD [address] [place] [address] [place] [address] 11/15/2023 1:00 PM EST Office Visit Gastroenterology, [facility] [address] [place] [address] Cammy Mosqueda CRNP [address] [facility] [place] [address] 11/23/2023 6:10 PM EST Pharmacy Pharmacy, [facility] [place] [address] [facility] [address] [place] [address] Health Maintenance Due Date Last Done Comments [...] Date/Time Associated Diagnosis Comments OUTSIDE LAB RESULTS 10/23/2023 documented in this encounter Results * OUTSIDE LAB RESULTS (10/23/2023) 10/23/2023 No Physician Data Unknown LABORATORY documented in this encounter Care Teams Legal Administrator Relationship Specialty Start Date End Date Sara Schwarz MD [address] [place] [address] [place] [phone] PCP - General Family Medicine 07/13/21 documented as of this encounter
--- OUTSIDE RECORDS SUMMARY | 2024-01-01 23:21 | External Medical Summary | Summary of Care ---
Author Name Unknown Organization [facility] Address [address] [place] [address] Phone [phone] Care Team Providers Care Rubber Turner Name Role Phone Sara Schwarz MD Primary Care Prov ider Reason for Visit * Reason Comments Dosage Adjustment Via Phone (anticoag Cl inic) Encounter Details Date Type Department Care Team (Latest Contact Info) Description 10/02/2023 5:40 PM [facility] Anticoagulation Pharmacy, [address] [place] [address] [place] [address] Acute deep vein thrombosis (DVT) of other [...] mg tablet 90 Tablet 3 3 Active Rytwt-3-mfgu Ethyl Esters 1 GM Oral CapsuleIndications: Dyslipidemia, [...] 80 mg before bedtime. Per hospital discharge [id number]. 0 3 Active Zinc 15 66 MG [...] MCG/0.3 mL, 12 YRS AND ABOVE, IM ([employer]) 07/14/2023 Covid-19 Adenovirus, [place] 1 Vector, 2-dose Series, PF ([employer]) 08/10/2021 Covid-19, Mrna, Lnp-s, Pf, B ivalent, [...] this encounter Progress Notes * Janae Khan, [facility] - 10/02/2023 4:55 PM EST Medication Therapy Disease Management - Anticoagulation Patient: Eda Estrada | : 1950 Subjective Contacts Type Contact Phone/Fax 10/02/2023 05:03 PM EST Phone (Outgoing) Eda Estrada (Self) [phone] (H) Spoke to Patient Patient-Reported Symptoms: Patient Findings Negatives: Signs/symptoms of thrombosis, Signs/symptoms of bleeding, Change in health, Change in alcohol use, Change in activity, Upcoming invasive procedure, Missed doses, Extra doses, Change in medications, Change in diet/appetite, Bruising Objective Current Warfarin Dose As of 10/02/2023 Warfarin maintenance plan: 6 mg (3 mg x 2) every Tue, Bettie; 4.5 mg (3 mg x 1.5) all other days INR Result As of 10/02/2023 INR goal: 2.0-3.0 INR used for dosin.02 (10/02/2023) Assessment & Plan Warfarin Plan As of 10/02/2023 Full warfarin instructions: 6 mg every Tue, Bettie; 4.5 mg all other days No change documented: Janae Khan RPh Next INR check: 10/09/2023 Repeat PT/INR in 1 week(s) at lab Weekly dose: not changed Additional Dosing Information: Description Takes warfarin AM Janae Khan RPh Clinical Pharmacist 10/02/2023, 4:56 PM * Janae Khan RPh - 10/02/2023 4:52 PM EST Called and spoke with [facility]. No documentation regarding lab drop off. Spoke with on-call provider, unsure of where specimen was dropped off. Called and spoke with [facility] lab. Received the following results: INR --> 2.02 Janae Khan RPh, PharmD Clinical Pharmacist - Bait Digger Medication Therapy Disease Management [facility] 10/02/2023, 4:55 PM [phone] * Patricia Gillette PHARM Tech - 10/02/2023 3:42 PM EST Spoke to Joan @ [facility]. Pt was seen today, nurse did not bring fingerstick device though so she had to do a vein draw. Result was not yet back at the time of call. Thank you, Patricia Gillette Forging Machine Operator [facility] ([facility]) (formerly Telepharmacy) [phone] 10/02/2023,3:44 PM documented in this encounter Plan of Treatment Upcoming Encounters Date Type Department Care Team (Late st Contact Info) Description 10/09/2023 3:00 PM EST Laboratory Laboratory [address] [place] [phone] [place] [phone] 10/09/2023 3:30 PM EST Imaging Radiology [address] [place] [address] 10/10/2023 7:00 AM EST Anticoagulation Pharmacy, [address] [place] [address] [place] [address] 10/10/2023 1:00 PM EST Office Visit Pharmacy, [facility] 132 [facility] [place] [address] [facility] 132 [facility] [place] [address] 11/07/2023 8:00 AM EST Office Visit Family Medicine [address] [place] [phone] Jimbo Torres MD [address] [place] [address] [place] [address] 11/15/2023 1:00 PM EST Office Visit Gastroenterology, [facility] 132 [facility] [place] [address] Cammy Mosqueda CRNP 132 [facility] [place] [address] Health Maintenance Due Date Last Done Comments [...] Date/Time Associated Diagnosis Comments OUTSIDE LAB-PT/INR Routine 10/02/2023 documented in this encounter Results * OUTSIDE LAB-PT/INR (10/02/2023) INR-OUTSIDE LAB 2.02 10/02/2023 Narrative Resulting Agency Comment [facility] Lab History Per Patient LABORATORY documented in this encounter Visit Diagnoses Diagnosis Acute deep vein thrombosis (DVT) of other vein of lower extremity, unspecified laterality (HCC)- Primary documented in this encounter Care Teams Rubber Turner Relationship Specialty Start Date End Date Sara Schwarz MD [address] [place] [address] [place] [address] PCP - General Family Medicine 07/13/21 documented as of this encounter"
--- OUTSIDE RECORDS SUMMARY | 2024-01-01 23:21 | External Medical Summary | Summary of Care ---
Author Name Unknown Organization [facility] Address [address] [place] [address] Phone [phone] Care Team Providers Care Phonograph Needle Tip Maker Name Role Phone Sara Schwarz MD Primary Care Prov ider Encounter Details Date Type Department Care Team (Late st Contact Info) Description 10/03/2023 Telephone Pharmacy, [address] [place], [place] [phone] Jnaae Khan, [facility] [address] [place], [place] [phone] Allergies Active Allergy Reactions Criticality Noted Date [...] mg tablet 90 Tablet 3 3 Active Zuqxz-6-tfyg Ethyl Esters 1 GM Oral CapsuleIndications: Dyslipidemia, [...] 5-325 MG Oral TabletIndications:A mputation stump infection ([facility]) Take 1 Tablet by mouth every 6 hours as needed for Pain, Mild. 60 Tablet 0 3 Active Enoxaparin Sodium 80 MG/0.8ML Injection Solution Prefilled Syringe (Lovenox) Inject 80 mg under the skin in the morning and 80 mg before bedtime. Per hospital discharge [id number]. 0 3 Active Zinc 15 66 MG [...] mRNA, LNP-s, No Pre serve, 2-Dose Series ([employer]) 01/19/2021,11/28/2020 COVID-19, MRNA-LNP, 23-24, P F, 30 MCG/0.3 mL, 12 YRS AND ABOVE, IM ([employer]Comir[employer]) 07/14/2023 Covid-19 Adenovirus, [place] 1 Vector, 2-dose Series, PF ([employer]) 08/10/2021 Covid-19, Mrna, Lnp-s, Pf, B ivalent, [...] Telephone Encounter - Janae Khan RPh - 10/03/2023 3:32 PM EST Called and spoke with [facility] ([phone]). Made aware patient will obtain INR at lab next week.Agreeable to obtain INR the following week on 10/16. Appointment placed. They stated they will continue to follow up with patient weekly for INR checks + wound care. Janae Khan RPh, PharmD Clinical Pharmacist - Retirement Manager Medication Therapy Disease Management Clinic 10/03/2023, 3:33 PM [phone] documented in this encounter Plan of Treatment Upcoming Encounters Date Type Department Care Team (Late st Contact Info) Description 10/09/2023 3:00 PM EST Laboratory Laboratory [address] [place] [phone] [facility] [address] [place] [address] 10/09/2023 3:30 PM EST Imaging Radiology [address] [place] [address] 10/10/2023 7:00 AM EST Anticoagulation Pharmacy, [address] [place] [address] [place] [address] 10/10/2023 1:00 PM EST Office Visit Pharmacy, [address] [place] [address] [place] [address] 10/16/2023 5:40 PM EST Anticoagulation Pharmacy, [address] [place] [address] [place] [address] 11/07/2023 8:00 AM EST Office Visit Family Medicine [address] [place] [phone] Jimbo Torres MD [address] [place] [address] [place] [address] 11/15/2023 1:00 PM EST Office Visit Gastroenterology, [facility] 132 [facility] [place] [address] Cammy Mosqueda CRNP 132 [facility] [place] [address] Health Maintenance Due Date Last Done Comments [...] Primary documented in this encounter Care Teams Phonograph Needle Tip Maker Relationship Specialty Start Date End Date Sara Schwarz MD [address] [place] [address] [place] [address] PCP - General Family Medicine 07/13/21 documented as of this encounter
--- OUTSIDE RECORDS SUMMARY | 2024-01-01 23:21 | External Medical Summary | Summary of Care ---
Author Name Unknown Organization [facility] Address [address] [place] [address] Phone [phone] Care Team Providers Care Command Post Superintendent Name Role Phone Vijaya Garcia MD Primary Care Prov ider Reason for Visit * Reason Onset Date Comments Medication Refill 10/06/2023 Encounter Details Date Type Department Care Team (Late st Contact Info) Description 10/06/2023 Refill Family Medicine [address] [phone] Vijaya Garcia MD [address] [place] [address] Amputation stump infection (HCC) Allergies Active Allergy Reactions Criticality Noted Date [...] thy in other diseases classified elsewhere ([facility]) Take 1 Tablet by mouth at bedtime. In addition to 50 mg tablet 90 Tablet 3 3 Active Nbboc-1-ctgo Ethyl Esters 1 GM Oral CapsuleIndications :Dyslipidemia, [...] and fibula ([facility]),Chronic bilateral back pain, unspecified back location Take [...] 80 mg before bedtime. Per hospital discharge [id number]. 0 3 Active Zinc 15 66 MG [...] Pain, Breakthrough. 60 Tablet 0 4 Active HYDROcodone-Acetam inophen 5-325 MG Oral TabletIndications: Amputation stump infection (HCC) Take 1 Tablet by mouth every 6 hours as needed for Pain, Mild. 60 Tablet 0 3 10/06/19 24 Discontinu ed(Refill) documented as of this [...] mRNA, LNP-s, No Pre serve, 2-Dose Series ([employer]) 01/19/2021,11/28/2020 COVID-19, MRNA-LNP, 23-24, P F, 30 MCG/0.3 mL, 12 YRS AND ABOVE, IM ([employer]) 07/14/2023 Covid-19 Adenovirus, [place] 1 Vector, 2-dose Series, PF ([employer]) 08/10/2021 Covid-19, Mrna, Lnp-s, Pf, B ivalent, 30 Mcg, IM, 12 yrs and above ([employer]) 09/06/2022 Pneumococcal Conjugate Vacc, 13 Valent (Prevnar) [...] Telephone Encounter - Vijaya Garcia MD - 10/09/2023 8:55 AM EST Signed Prescriptions: Disp Refills HYDROcodone-Acetaminophen 5-325 MG Oral Ta*60 Tab*0 Sig: Take 1Tablet by mouth 2 times a day as needed for Pain, Mild or Pain, Breakthrough.Authorizing Provider: VIJAYA GARCIA * Telephone Encounter - Nataliya Whitley LPN - 10/06/2023 1:39 PM EST Pending Prescriptions: Disp Refills HYDROcodone-Acetaminophen 5-325 MG Oral T*60 Tab*0 Sig: Take 1 Tablet by mouth every 6 hours as needed for Pain, Mild. Last Visit: 09/19/2023 (in office), Visit date not found (telemedicine) Next Visit: 11/07/2023 Last date the medication was ordered: 09/12/23 Patient Active Problem List Diagnosis Code Carpal [...] and fibula ([facility]) Z89.512 Anxiety F41.9 Polyneuropathy in other diseases classified elsewhere ([facility]) G63 PVD (peripheral vascular disease) ([facility]) I73.9 Rectocele N81.6 Cystocele, midline N81.11 Colostomy status ([facility]) Z93.3 Superior mesenteric artery stenosis ([facility]) K55.1 Acute deep vein thrombosis (DVT) of other vein of lower extremity, unspecified laterality ([facility]) I82.409 Chronic deep vein thrombosis (DVT) of femoral vein of left lower extremity ([facility]) I82.512 Labs: Lab Results Component Value Date/Time [...] Description 10/09/2023 3:30 PM EST Imaging Radiology [address] [place] [address] 10/10/2023 7:00 AM EST Anticoagulation Pharmacy, [address] [place] [address] [place] [address] 10/13/2023 2:40 PM EST Office Visit Pharmacy, [facility] [address] [place] [address] [facility] 132 [place] [address] 10/16/2023 5:40 PM EST Anticoagulation Pharmacy, [address] [place] [address] [place] [address] 11/07/2023 8:00 AM EST Office Visit Family Medicine [address] [place] [phone] Jimbo Torres MD [address] [place] [address] [place] [address] 11/15/2023 1:00 PM EST Office Visit Gastroenterology, [facility] [address] [place] [address] Cammy Mosqueda CRNP [address] [place] [address] Health Maintenance Due Date Last Done Comments [...] as of this encounter Visit Diagnoses Diagnosis 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
--- OUTSIDE RECORDS SUMMARY | 2024-01-01 23:22 | External Medical Summary | Summary of Care ---
Author Name Unknown Organization [facility] Address [address] [place] [address] Phone [phone] Care Team Providers Care Automotive Welder Name Role Phone Sara Schwarz MD Primary Care Prov ider Reason for Visit * Reason Onset Date Comments Encounter Created in Error 09/21/2023 Encounter Details Date Type Department Care Team (Late st Contact Info) Description 09/21/2023 Telephone Family [address] [phone] Sara Schwarz MD [address] [place] [address] Encounter Created in Error Allergies Active Allergy Reactions Criticality Noted Date Comments Cetirizine & Related 10/13/2003 zyrtec-much gi distress Vancomycin High 07/20/2020 Other reaction(s): kidney issues, unknown, WORSENING RENAL FUNCTION documented as of this encounter (statuses as of 09/21/2023) Medications Medication Sig Dispensed Refills Start Date [...] lumbar region,Polyneuropathy in other diseases classified elsewhere ([facility]) Take 1 Tablet by mouth at bedtime. 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 Brand necessary. 30 Tablet 0 08/30/2023 Active Atorvastatin Calcium 20 MG Oral Tablet (Lipitor)Indications: Dyslipidemia, goal LDL below 100 TAKE 1 TABLET BY MOUTH EVERY DAY IN THE EVENING 90 Tablet 3 09/03/2023 Active HYDROcodone-Acetamino phen 5-325 MG Oral TabletIndications:Amp utation stump infection (HCC) Take 1 Tablet by mouth every 6 hours as needed for Pain, Mild. 60 Tablet 0 09/12/2023 Active Enoxaparin Sodium 80 MG/0.8ML Injection Solution Prefilled Syringe (Lovenox) Inject 80 mg under the skin in the morning and 80 mg before bedtime. Per hospital discharge [id number]. 0 09/09/2023 Active Warfarin Sodium 3 MG Oral Tablet (Coumadin) Take 1 Tablet by mouth in the morning. Per hospital discharge . 0 09/09/2023 Active Zinc 15 66 MG Oral Tablet (Zinc Sulfate) Take by mouth once. Patient unsure dosage 0 Active Losartan Potassium 25 MG Oral Tablet (Cozaar)Indications:H TN, goal below 140/90 TAKE 1 TABLET BY MOUTH EVERY DAY IN THE MORNING 90 Tablet 1 09/19/2023 Active documented as of this encounter (statuses as of 09/21/2023) Active Problems Problem Noted Date Diagnosed Date [...] as of this encounter (statuses as of 09/21/2023) Resolved Problems Problem Noted Date Diagnosed Date [...] as of this encounter (statuses as of 09/21/2023) Immunizations Name Administration Dates Next Due COVID-19 mRNA, LNP-s, No Pre serve, 2-Dose Series ([employer]) 01/19/2021,11/28/2020 COVID-19, MRNA-LNP, 23-24, P F, 30 MCG/0.3 mL, 12 YRS AND ABOVE, IM ([employer]id-Comirnat) 07/14/2023 Covid-19 Adenovirus, [place] 1 Vector, 2-dose Series, PF ([employer]) 08/10/2021 Covid-19, Mrna, Lnp-s, Pf, B ivalent, 30 Mcg, IM, 12 yrs and above ([employer]) 09/06/2022 Pneumococcal Conjugate Vacc, 13 Valent (Prevnar) [...] encounter Miscellaneous Notes * Telephone Encounter - Eloisa Lowry LPN - 09/21/2023 2:16 PM EST . documented in this encounter Plan of Treatment Upcoming Encounters Date Type Department Care Team (Latest Contact Info) Description 09/21/2023 5:40 PM EST Anticoagulation Pharmacy, [address] [place] [address] [place] [address] Acute deep vein thrombosis (DVT) of other vein of lower extremity, unspecified laterality (HCC)* 09/26/2023 5:40 PM EST Anticoagulation Pharmacy, [address] [place] [address] [place] [address] 10/09/2023 3:30 PM EST Imaging Radiology [address] [place] [address] 10/10/2023 1:00 PM EST Office Visit Pharmacy, [facility] 132 [facility] [place] [address] [facility] [address] [place] [address] 11/07/2023 8:00 AM EST Office Visit Family [address] [place] [phone] Jimbo Torres MD [address] [place] [address] [place] [address] 11/15/2023 1:00 PM EST Office Visit Gastroenterology, [facility] [address] [place] [address] Cammy Mosqueda CRNP [facility] [place] [address] Health Maintenance Due Date Last Done Comments [...] filedocumented as of this encounter Care Teams Automotive Welder Relationship Specialty Start Date End Date Sara Schwarz MD [address] [place] [address] [place] [address] PCP - General Family Medicine 07/13/21 documented as of this encounter
--- OUTSIDE RECORDS SUMMARY | 2024-01-01 23:22 | External Medical Summary | Summary of Care ---
Author Name Unknown Organization [facility] Address [address] [place] [address] Phone [phone] Care Team Providers Care Fine Arts Instructor Name Role Phone Sara Schwarz MD Primary Care Prov ider Reason for Visit * Reason Comments Dosage Adjustment Via Phone (anticoag Cl inic) Encounter Details Date Type Department Care Team (Latest Contact Info) Description 09/28/2023 5:40 PM [facility] [place] Anticoagulation Pharmacy, [address] [place] [address] [place] [address] Acute deep vein thrombosis (DVT) of other vein of lower extremity, unspecified laterality (HCC)* Allergies Active Allergy Reactions Criticality Noted Date Comments Cetirizine & Related 10/13/2003 zyrtec-much gi distress Vancomycin High 07/20/2020 Other reaction(s): kidney issues, unknown, WORSENING RENAL FUNCTION documented as of this encounter (statuses as of 09/28/2023) Medications Medication Sig Dispensed Refills Start Date [...] region,Polyneuropa thy in other diseases classified elsewhere ([facility]) Take 1 Tablet by mouth at bedtime. In addition to 50 mg tablet 90 Tablet 3 3 Active Wpsas-5-qkwv Ethyl Esters 1 GM Oral CapsuleIndications :Dyslipidemia, [...] left lower extremity through tibia and fibula ([facility]),Chronic bilateral back pain, unspecified back location [...] AFTER TAKING 12 Tablet 1 3 Active OxyCONTIN 10 MG Oral Tablet ER 12 Hour Abuse-DeterrentInd ications:History of amputation of left lower extremity through tibia and fibula (HCC),Chronic bilateral back pain, unspecified back location Take 1 Tablet by mouth in the morning. Brand necessary. 30 Tablet 0 3 Active Atorvastatin Calcium 20 MG Oral [...] 80 mg before bedtime. Per hospital discharge [id number]. 0 3 Active Zinc 15 66 MG [...] anticoagulation clinic 60 Tablet 3 4 Active Warfarin Sodium 3 MG Oral Tablet (Coumadin) Take 1 Tablet by mouth in the morning. Per hospital discharge . 0 3 09/28/19 24 Discontinu ed(Refill) documented as of this encounter (statuses as of 09/28/2023) Active Problems Problem Noted Date Diagnosed Date [...] as of this encounter (statuses as of 09/28/2023) Resolved Problems Problem Noted Date Diagnosed Date [...] as of this encounter (statuses as of 09/28/2023) Immunizations Name Administration Dates Next Due COVID-19 mRNA, LNP-s, No Pre serve, 2-Dose Series (Pfizer) 01/19/2021,11/28/2020 COVID-19, MRNA-LNP, 23-24, P F, 30 MCG/0.3 mL, 12 YRS AND ABOVE, IM ([employer]) 07/14/2023 Covid-19 Adenovirus, [place] 1 Vector, 2-dose Series, PF (NEXAGE) 08/10/2021 Covid-19, Mrna, Lnp-s, Pf, B ivalent, 30 Mcg, IM, 12 yrs and above (Positionly) 09/06/2022 Pneumococcal Conjugate Vacc, 13 Valent (Prevnar) [...] and older)(Adacel) 05/30/2008 Varicella Zoster Vaccine (Adult) 06/20/2020,04/03/2015 Zoster Vaccine Recombinant (Shingrix) 06/20/2020 documented as [...] Progress Notes * Janae Khan, [facility] - 09/28/2023 3:45 PM EST Images from the original note were not included. Medication Therapy Disease Management - Anticoagulation Patient: Eda Sousa Matiasalea | : 1950 Subjective Contacts Type Contact Phone/Fax 09/28/2023 02:56 PM EST Phone (Incoming) Myra (Other) [phone] 09/28/2023 04:00 PM EST Phone (Outgoing) Eda Estrada (Self) [phone] (H) Spoke to Patient Patient-Reported Symptoms: Patient Findings Negatives: Signs/symptoms of thrombosis, Signs/symptoms of bleeding, Change in health, Change in alcohol use, Change in activity, Upcoming invasive procedure, Missed doses, Extra doses, Change in medications, Change in diet/appetite, Bruising Objective Current Warfarin Dose As of 09/28/2023 Warfarin maintenance plan: No maintenance plan INR Result As of 09/28/2023 INR goal: 2.0-3.0 INR used for dosin.7 (09/28/2023) Assessment & Plan Warfarin Plan As of 09/28/2023 Full warfarin instructions: 09/29: 6 mg; Otherwise 6 mg every Tue, Bettie; 4.5 mg all other days Next INR check: 10/02/2023 Repeat PT/INR in 4 day(s) Weekly dose: establishing Additional Dosing Information: Weekly dose established. Patient states only x3 Lovenox injections left. Will plan to finish last injections then stop. Bolus provided today, will follow up closely on 10/02. Description Takes warfarin AM Lovenox 70mg BID Faxed orders to [facility] at [phone]. # [phone] Ok to use fingerstick Dx: Acute DVT I82.409 Ordering provider: Sara Schwarz MD Please fax INR results to [facility] at [phone] [facility] can be reached at with any questions or problems Janae Khan [facility] Clinical Pharmacist 09/28/2023, 3:45 PM * Aliyah Bob PHARM Tech - 09/28/2023 2:56 PM EST Caller's name: Joanna Preferred call back number(OFFICE NUMBER FOR ): [phone] Reason for call: nursing facility, [facility], calling with INR results. Result is 1.7 which was drawn on 09/28/23. Patient is not being discharged. Thank you, Aliyah Bob Manager [facility] 09/28/2023,2:57 PM documented in this encounter Plan of Treatment Upcoming Encounters Date Type Department Care Team (Late st Contact Info) Description 10/02/2023 5:40 PM EST Anticoagulation Pharmacy, [address] [place] [address] [place] [address] 10/09/2023 3:30 PM EST Imaging Radiology [address] [place] [address] 10/10/2023 1:00 PM EST Office Visit Pharmacy, [facility] [address] [facility] [place] [address] [facility] [place] [address] 11/07/2023 8:00 AM EST Office Visit Family Medicine [address] [place] [address] Jimbo Torres MD [address] [place] [address] [place] [address] 11/15/2023 1:00 PM EST Office Visit Gastroenterology, [facility] [address] [place] [address] Cammy Mosqueda CRNP [address] [place] [address] Health Maintenance Due Date Last Done Comments [...] Date/Time Associated Diagnosis Comments OUTSIDE LAB-PT/INR Routine 09/28/2023 documented in this encounter Results * OUTSIDE LAB-PT/INR (09/28/2023) INR-OUTSIDE LAB 1.7 History Per Patient LABORATORY documented in this encounter Visit Diagnoses Diagnosis Acute deep vein thrombosis (DVT) of other vein of lower extremity, unspecified laterality (HCC)- Primary documented in this encounter Care Teams Fine Arts Instructor Relationship Specialty Start Date End Date Sara Schwraz MD [address] [place] [address] [place] [address] PCP - General Family Medicine 07/13/21 documented as of this encounter"
--- OUTSIDE RECORDS SUMMARY | 2024-01-01 23:22 | External Medical Summary | Summary of Care ---
Author Name Unknown Organization [facility] Address [address] [place] [address] Phone [phone] Care Team Providers Care Track Laborer Name Role Phone Sara Schwarz MD Primary Care Prov ider Reason for Visit * Reason Comments Dosage Adjustment Via Phone (anticoag Cl inic) Encounter Details Date Type Department Care Team (Latest Contact Info) Description 09/26/2023 5:40 PM [facility] Anticoagulation Pharmacy, [address] [place] [address] [place] [address] Acute deep vein thrombosis (DVT) of other vein of lower extremity, unspecified laterality (HCC)* Allergies Active Allergy Reactions Criticality Noted Date Comments Cetirizine & Related 10/13/2003 zyrtec-much gi distress Vancomycin High 07/20/2020 Other reaction(s): kidney issues, unknown, WORSENING RENAL FUNCTION documented as of this encounter (statuses as of 09/26/2023) Medications Medication Sig Dispensed Refills Start Date [...] lumbar region,Polyneuropathy in other diseases classified elsewhere ([facility]) Take 1 Tablet by mouth at bedtime. In addition to 50 mg tablet 90 Tablet 3 02/09/2023 Active Bwges-7-onxr Ethyl Esters 1 GM Oral CapsuleIndications:Dy slipidemia, [...] left lower extremity through tibia and fibula ([facility]),Chronic bilateral back pain, unspecified back location [...] 80 mg before bedtime. Per hospital discharge [id number]. 0 09/09/2023 Active Warfarin Sodium 3 MG [...] as of this encounter (statuses as of 09/26/2023) Active Problems Problem Noted Date Diagnosed Date [...] as of this encounter (statuses as of 09/26/2023) Resolved Problems Problem Noted Date Diagnosed Date [...] as of this encounter (statuses as of 09/26/2023) Immunizations Name Administration Dates Next Due COVID-19 mRNA, LNP-s, No Pre serve, 2-Dose Series (eMindful) 01/19/2021,11/28/2020 COVID-19, MRNA-LNP, 23-24, P F, 30 MCG/0.3 mL, 12 YRS AND ABOVE, IM (E[employer]ComirnatWeHack.It) 07/14/2023 Covid-19 Adenovirus, [place] 1 Vector, 2-dose Series, PF ([employer]) 08/10/2021 Covid-19, Mrna, Lnp-s, Pf, B ivalent, 30 Mcg, IM, 12 yrs and above (eMindful) 09/06/2022 Pneumococcal Conjugate Vacc, 13 Valent (Prevnar) [...] Progress Notes * Janae Khan RPh - 09/26/2023 3:13 PM EST Medication Therapy Disease Management - Anticoagulation Patient: Eda Estrada | : 1950 Subjective Contacts Type Contact Phone/Fax 09/26/2023 03:58 PM EST Phone (Outgoing) Taya (Child) Patient-Reported Symptoms: Objective Current Warfarin Dose As of 09/26/2023 Warfarin maintenance plan: No maintenance plan INR Result As of 09/26/2023 INR goal: 2.0-3.0 INR used for dosing: No new INR available at time of encounter Assessment & Plan Warfarin Plan As of 09/26/2023 Full warfarin instructions: 09/26: 4.5 mg; 09/27: 3 mg Next INR check: 09/28/2023 Repeat PT/INR in 2 day(s) Weekly dose: establishing Additional Dosing Information: Instructed to continue Lovenox at this time. Dosing provided until 09/28. Will plan to f/u on result at that time. Description Takes warfarin AM Lovenox 70mg BID Janae Khan RPh Clinical Pharmacist 09/26/2023, 3:13 PM * Patricia Gillette PHARM Tech - 09/26/2023 3:04 PM EST [facility] for [facility] on 09/28/23. Scheduled for f/u call on 09/28/23. Please advise, note says she needs dosing. Thank you, Patricia Gillette [employer] [facility] ([facility]) (formerly Telepharmacy) [phone] 09/26/2023,3:05 PM documented in this encounter Plan of Treatment Upcoming Encounters Date Type Department Care Team (Late st Contact Info) Description 09/28/2023 5:40 PM EST Anticoagulation Pharmacy, [address] [place] [address] [place] [address] 10/09/2023 3:30 PM EST Imaging Radiology [address] [place] [address] 10/10/2023 1:00 PM EST Office Visit Pharmacy, [address] [place] [address] [place] [address] 11/07/2023 8:00 AM EST Office Visit Family Medicine [address] [place] [address] Jimbo Torres MD [address] [place] [address] [place] [address] 11/15/2023 1:00 PM EST Office Visit Gastroenterology, [facility] [address] [facility] [place] [address] Cammy Mosqueda CRNP [address] [place] [address] Health Maintenance Due Date Last Done Comments Cologuard 01/13/1996 Fecal Occult Blood Test 01/13/1996 Sigmoidoscopy 01/13/1996 Zoster Vaccines (3 of 3) 08/15/2020 020, 06/20/2020, 12/30/2014 Mammogram 11/02/2023 11/02/2022, 09/25, 07/30/2020, Additional history exists Depression Screening 01/07/2024 01/06/2023 GFR 07/07/2024 07/07/2023, 07/09/2021, 12/31/2021, Additional history exists Albumin/Creatinine Ratio 05/10/2025 [...] Primary documented in this encounter Care Teams Track Laborer Relationship Specialty Start Date End Date Sara Schwarz MD [address] [place] [address] [place] [address] PCP - General Family Medicine 07/13/21 documented as of this encounter"
--- OUTSIDE RECORDS SUMMARY | 2024-01-01 23:22 | External Medical Summary | Summary of Care ---
Author Name Unknown Organization [facility] Address [address] [place] [address] Phone [phone] Care Team Providers Care Sample Maker Original Name Role Phone Sara Schwarz MD Primary Care Prov ider Reason for Visit * Reason Comments Dosage Adjustment In Person (Anticoag Cl inic) Encounter Details Date Type Department Care Team (Latest Contact Info) Description 09/19/2023 2:30 PM [facility] Anticoagulation Pharmacy, [address] [place] [address] [place] [address] Acute deep vein thrombosis (DVT) of other vein of lower extremity, unspecified laterality (HCC)*; Anticoagulation management encounter; intermediate manager current use of anticoagulant therapy Allergies Active Allergy Reactions Criticality Noted Date Comments Cetirizine & Related 10/13/2003 zyrtec-much gi distress Vancomycin High 07/20/2020 Other reaction(s): kidney issues, unknown, WORSENING RENAL FUNCTION documented as of this encounter (statuses as of 09/19/2023) Medications Medication Sig Dispensed Refills Start Date [...] lumbar region,Polyneuropathy in other diseases classified elsewhere (HCC) Take 1 Tablet by mouth at bedtime. In addition to 50 mg tablet 90 Tablet 3 02/09/2023 Active Etyzh-9-bhqn Ethyl Esters 1 GM Oral CapsuleIndications:Dy slipidemia, [...] FOR SPAMS 90 Tablet 1 06/27/2023 Active Losartan Potassium 25 MG Oral Tablet (Cozaar)Indications:H TN, goal below 140/90 TAKE 1 TABLET BY MOUTH EVERY DAY IN THE MORNING 90 Tablet 0 06/27/2023 Active Pregabalin 150 MG Oral Capsule [...] 80 mg before bedtime. Per hospital discharge [id number]. 0 09/09/2023 Active Warfarin Sodium 3 MG Oral Tablet (Coumadin) Take 1 Tablet by mouth in the morning. Per hospital discharge . 0 09/09/2023 Active Zinc 15 66 MG Oral Tablet (Zinc Sulfate) Take by mouth once. Patient unsure dosage 0 Active documented as of this encounter (statuses as of 09/19/2023) Active Problems Problem Noted Date Diagnosed Date Acute deep vein thrombosis ( DVT) of [...] as of this encounter (statuses as of 09/19/2023) Resolved Problems Problem Noted Date Diagnosed Date [...] as of this encounter (statuses as of 09/19/2023) Immunizations Name Administration Dates Next Due COVID-19 mRNA, LNP-s, No Pre serve, 2-Dose Series (Pfizer) 01/19/2021,11/28/2020 COVID-19, MRNA-LNP, 23-24, P F, 30 MCG/0.3 mL, 12 YRS AND ABOVE, IM ([employer]now [employer]Comirnatx[employer]) 07/14/2023 Covid-19 Adenovirus, [place] 1 Vector, 2-dose Series, PF (Webalo) 08/10/2021 Covid-19, Mrna, Lnp-s, Pf, B ivalent, [...] this encounter Progress Notes * Janae Khan, [facility] - 09/19/2023 2:37 PM EST Images from the original note were not included. Medication Therapy Disease Management - Anticoagulation Patient: Eda Estrada | : 1950 Patient presents with Taya daughter Subjective Patient-Reported Symptoms: Patient Findings Negatives: Signs/symptoms of thrombosis, Signs/symptoms of bleeding, Change in health, Change in alcohol use, Change in activity, Upcoming invasive procedure, Missed doses, Extra doses, Change in medications, Change in diet/appetite, Bruising Objective Current Warfarin Dose As of 09/19/2023 Warfarin maintenance plan: No maintenance plan INR Result As of 09/19/2023 INR goal: 2.0-3.0 INR used for dosin.6 (09/19/2023) Assessment & Plan Warfarin Plan As of 09/19/2023 Full warfarin instructions: 09/19: 6 mg; 09/20: 4.5 mg Next INR check: 09/21/2023 Repeat PT/INR in 2 day(s) Weekly dose: establishing Additional Dosing Information: Description Takes warfarin AM RESTART Lovenox 70mg BID Faxed orders to [facility] at [phone]. # [phone] Ok to use fingerstick Dx: Acute DVT I82.409 Ordering provider: Sara Schwarz MD Please fax INR results to [facility] at [phone] [facility] can be reached at with any questions or problems Janae Khan [facility] Clinical Pharmacist 09/19/2023, 2:37 PM documented in this encounter Plan of Treatment Upcoming Encounters Date Type Department Care Team (Late st Contact Info) Description 09/21/2023 5:40 PM EST Anticoagulation Pharmacy, [address] [place] [address] [place] [address] 10/09/2023 3:30 PM EST Imaging Radiology [address] [place] [address] 10/10/2023 1:00 PM EST Office Visit Pharmacy, [facility] [address] [facility] [place] [address] [facility] [place] [address] 11/15/2023 1:00 PM EST Office Visit Gastroenterology, [facility] [address] [facility] [place] [address] Cammy Mosqueda CRNP [address] [place] [address] Scheduled Orders Name Type Priority Associated Diagnoses Orde r Schedule PT INR Lab Routine Acute deep vein thrombosis (DVT) of other vein of lower extremity, unspecified laterality (HCC) Anticoagulation management encounter [facility] current use of anticoagulant therapy 26 Occurrences starting 09/19/2023 until 09/18/2024 INR FINGERSTICK, POINT OF CARE Point of Care Testing - Unsolicited Results STAT Acute deep vein thrombosis (DVT) of other vein of lower extremity, unspecified laterality (HCC) Anticoagulation management encounter intermediate manager current use of anticoagulant therapy Every 2 Weeks for 26 Occurrences starting 09/19/2023 until 09/19/2024, 1 completed Health Maintenance Due Date Last Done Comments [...] Procedure Name Priority Date/Time Associated Diagnosis Comments INR FINGERSTICK, POINT OF CARE STAT 09/19/2023 2:47 PM EST Acute deep vein thrombosis (DVT) of other vein of lower extremity, unspecified laterality (HCC) Anticoagulation management encounter [facility] current use of anticoagulant therapy documented in this encounter Results * INR FINGERSTICK, POINT OF CARE (09/19/2023 2:47 PM EST) Fingerstick INR 1.6 INR 2:49 PM EST [facility] [place] Blood 09/19/2023 2:47 PM EST 09/19/2023 2:49 PM EST Narrative [facility] [place] - 09/19/2023 2:49 PM EST Therapeutic ranges for non-operative patients: Prophylaxsis/treatment of DVT: (Range:2.0-3.0) Treatment of pulmonary embolism:(Range:2.0-3.0) Prevention of systemic embolism from: -tissue heart valves -acute myocardial infarction -valvular heart disease -atrial fibrillation (Range: 2.0-3.0) Mechanical prosthetic valves: (Range: 2.5-3.5) Janae Khan [facility] LAB POINT OF CARE TEST DOCKED DEVICE UNSOLICITED RESULTS [facility] [place] [place] [address] [place] [address] documented in this encounter Visit Diagnoses Diagnosis Acute deep vein thrombosis (DVT) of other vein of lower extremity, unspecified laterality (HCC)- Primary Anticoagulation management encounter Encounter for therapeutic drug monitoring [facility] current use of anticoagulant therapy documented in this encounter Care Teams Sample Maker Original Relationship Specialty Start Date End Date Sara Schwarz MD [address] [place] [address] [place] [address] PCP - General Family Medicine 07/13/21 documented as of this encounter"
--- OUTSIDE RECORDS SUMMARY | 2024-01-01 23:22 | External Medical Summary | Summary of Care ---
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 In addition to 50 mg tablet 90 Tablet 3 02/09/2023 Active Fowdh-6-rtfi Ethyl Esters 1 GM Oral CapsuleIndications: Dyslipidemia, [...] daily with meals . 0 07/26/2023 Active HYDROcodone-Acetami nophen 10-325 MG Oral TabletIndications:H [...] THE EVENING 90 Tablet 3 09/03/2023 Active HYDROcodone-Acetami nophen 5-325 MG Oral TabletIndications:A mputation stump infection (HCC) Take 1 Tablet by mouth every 6 hours as needed for Pain, Mild. 60 Tablet 0 09/12/2023 Active Enoxaparin Sodium 80 MG/0.8ML Injection Solution Prefilled Syringe (Lovenox) Inject 80 mg under the skin in the morning and 80 mg before bedtime. Per hospital discharge [id number]. 0 09/09/2023 Active Warfarin Sodium 3 MG [...] THE MORNING 90 Tablet 1 09/19/2023 Active Losartan Potassium 25 MG Oral Tablet (Cozaar)Indications :HTN, goal below 140/90 TAKE 1 TABLET BY MOUTH EVERY DAY IN THE MORNING 90 Tablet 0 06/27/2023 3 Discontinue d(Refill) Doxycycline Hyclate 100 MG Oral CapsuleIndications: MRSA (methicillin resistant staph aureus) culture positive Take 1 Capsule by mouth in the morning and 1 Capsule before bedtime. Do all this for 10 days. Until gone.. 20 Capsule 0 08/01/2023 Discontinue d(End of Procedure) documented as of this encounter (statuses as [...] mRNA, LNP-s, No Pre serve, 2-Dose Series (Intoloop) 01/19/2021,11/28/2020 COVID-19, MRNA-LNP, 23-24, P F, 30 MCG/0.3 mL, 12 YRS AND ABOVE, IM ([employer]) 07/14/2023 Covid-19 Adenovirus, [place] 1 Vector, 2-dose Series, PF ([employer]) 08/10/2021 Covid-19, Mrna, Lnp-s, Pf, B ivalent, 30 Mcg, IM, 12 yrs and above (Intoloop) 09/06/2022 Pneumococcal Conjugate Vacc, 13 Valent (Prevnar) [...] on file documented as of this encounter Last Filed Vital Signs Vital Sign Reading Time Taken Comments Blood Pressure 120/68 09/19/2023 3:27 PM EST Pulse 73 09/19/2023 3:27 PM EST Temperature 36.2 C (97.1 F) 09/19/2023 3:27 PM ES T Respiratory Rate 16 09/19/2023 3:27 PM EST Oxygen Saturation 92% 09/19/2023 3:27 PM EST Inhaled Oxygen Concentration - - Weight 69.4 kg (153 lb) 09/19/2023 3:27 PM EST Height - - Body Mass Index 26.26 07/14/2023 12:44 PM EDT documented in this encounter Progress Notes * Reji Yan MD - 09/19/2023 3:24 PM EST Eda was in [facility] 09/05 to 09/09 for DVT left leg indeterminant, left superficial femoral and common femoral with plaque. Ongoing antibiotic treatment for left leg infections. She is on amlodipine 10 mg, not 5. Other meds the same. She will be managed by Coumadin clinic She has a lot of pain yet. Health Maintenance addressed. Boosted for Covid and flu Past Medical History: Diagnosis Date BACKACHE NOS 10/13/2003 acute Carpal tunnel syndrome right Depression with anxiety 11/26/2009 Dyslipidemia, goal LDL below 100 History of amputation of left lower extremity through tibia and fibula (HCC) 03/09/2017 HTN, goal below 140/90 Iron deficiency anemia due to chronic blood loss 07/19/2016 Lymphosarcoma, unspecified site, extranodal and solid organ sites Past Surgical History: Procedure Laterality Date AMPUTATE LOWER LEG AT KNEE Left 02/14/2017 Kayleigh FAUST ANGIOPLASTY;SINGLE Left 05/2016 Arthrectomy and PTCA left SFA DELIVERY 1987 EGD, FLEXIBLE, DIAGNOSTIC 06/19/2020 normal / [facility] ERCP 06/19/2020 choledocholithiasis, stent placed, repeat 6-8 wks / [facility] ERCP 10/14/2020 Choledocholithiasis, stent removed / [facility] FOOT/TOE SURGERY NEC Left 10/14/2015 Dr. Wynne INFORMATION 1990 left thigh sarcoma maligancy x2 surergy LAPAROSCOPY; CHOLECYSTECTOMY N/A 07/20/2020 LIGATE/CUT OVIDUCT(S) LUMBAR SPINE FUSION, POST INTERBODY 12/2013 Dr. Hong LUMBAR SPINE FUSION, POST INTERBODY 03/10/2015 Dr. Hong MISCELLANEOUS ORDER ([facility] ONLY) 04/21/2013 left hip surg revision, Dr. Wynne OTHER Left 12/04/2020 left hip bone mass removal RADIATION THERAPY MANAGEMENT NEC 1990 Radiation Treatments REMOVE TONSILS & ADENOIDS, UNDER 12 REVISION OF TOTAL HIP JOINT SURGERY 2011 left hip, Dr. Wynne Patient Active Problem List Diagnosis Code Carpal [...] extremity through tibia and fibula ([facility]) Z89.512 Anxiety F41.9 Polyneuropathy in other diseases classified elsewhere ([facility]) G63 PVD (peripheral vascular disease) ([facility]) I73.9 Rectocele N81.6 Cystocele, midline N81.11 Colostomy status ([facility]) Z93.3 Superior mesenteric artery stenosis ([facility]) K55.1 Acute deep vein thrombosis (DVT) of other vein of lower extremity, unspecified laterality ([facility]) I82.409 Review of patient's allergies indicates: Allergen Reactions Vancomycin Other reaction(s): kidney issues, unknown, WORSENING RENAL FUNCTION Cetirizine & Related zyrtec-much gi distress Social History Socioeconomic History Marital status: Spouse name: Marquis Number of children: 4 Years of education: Not on file Highest education level: Not on file Occupational History 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, 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 [employer] Tobacco Use Smoking status: Former Types: Cigarettes Quit date: 07/21/2014 Years since quittin.1 Smokeless tobacco: Never Vaping Use Vaping Use: Never used Substance and Sexual Activity Alcohol use: Yes Comment: rare Drug use: No Sexual activity: Yes Partners: Male Other Topics Concern Not on file Social History Narrative Not on file Social Determinants of Health Financial Resource Strain: Not on file Food Insecurity: Unknown (01/06/2023) Hunger Vital Sign Worried About Running Out of Food in the Last Year: Patient refused Ran Out of Food in the Last Year: Patient refused Transportation Needs: Not on file Physical Activity: Not on file Stress: Not on file Social Connections: Not on file Intimate Partner Violence: Not on file Housing Stability: Not on file Current Outpatient Medications Medication Sig Dispense Refill Aspirin 81 MG Tablet Take 1 Tablet by mouth in the morning and 1 Tablet before bedtime. Multiple Vitamin (MULTIVITAMINS) Capsule Take 1 Capsule by mouth in the morning. Acetaminophen ER 650 MG Oral Tablet Extended Release Take 1 Tablet by mouth. 1 tab every 6 hours asneeded Docusate Sodium 100 MG Oral Capsule Take 1 Capsule by mouth in the morning and 1 Capsule before bedtime. Zoster Vac Recomb Adjuvanted 50 MCG/0.5ML Intramuscular Suspension Reconstituted (Shingrix) Inject 0.5 mL into a large muscle now and repeat dose in 60 to 180 days 1 Each 1 Iron 325 (65 Fe) MG Oral Tablet Take by mouth. Vitamin D 25 MCG (1000 UT) Oral Tablet Take by mouth. amLODIPine Besylate 10 MG Oral Tablet (Norvasc) TAKE 1 TABLET BY MOUTH EVERY DAY IN THE MORNING 90 Tablet 1 Amitriptyline HCl 25 MG Oral Tablet (Elavil) Take 1 Tablet by mouth at bedtime. In addition to 50 mg tablet 90 Tablet 3 Alrxt-6-ddas Ethyl Esters 1 GM Oral Capsule Take 4 capsules daily by mouth 360 Capsule 11 Amitriptyline HCl 50 MG Oral Tablet (Elavil) TAKE 1 TABLET BY MOUTH EVERYDAY AT BEDTIME 90 Tablet 3 tiZANidine HCl 4 MG Oral Tablet (Zanaflex) TAKE 1/2-1 TABLET BY MOUTH DAILY NEEDED FOR SPAMS 90 Tablet 1 Losartan Potassium 25 MG Oral Tablet (Cozaar) TAKE 1 TABLET BY MOUTH EVERY DAY IN THE MORNING 90 Tablet 0 Pregabalin 150 MG Oral Capsule (Lyrica) Take 1 Capsule by mouth in the morning and 1 Capsule at noon and 1 Capsule before bedtime. 90 Capsule 5 busPIRone HCl 10 MG Oral Tablet (Buspar) TAKE 1 TABLET BY MOUTH IN THE MORNING AND BEFORE BEDTIME 180 Tablet 3 Probiotic Product Oral Capsule Take 1 Capsule by mouth in the morning. 3,000 mmu cells daily with meals . HYDROcodone-Acetaminophen 10-325 MG Oral Tablet Take 1 Tablet by mouth 2 times a day as needed for Pain, Severe. 60 Tablet 0 Alendronate Sodium 70 MG Oral Tablet (Fosamax) TAKE 1 TABLET BY MOUTH ONCE A WEEK. WITH 8 OZ. WATER30 MINUTES BEFORE FIRST MEAL OF THE DAY REMAIN UPRIGHT FOR 30 MIN AFTER TAKING 12 Tablet 1 OxyCONTIN 10 MG Oral Tablet ER 12 Hour Abuse-Deterrent Take 1 Tablet by mouth in the morning. Brandnecessary. 30 Tablet 0 Atorvastatin Calcium 20 MG Oral Tablet (Lipitor) TAKE 1 TABLET BY MOUTH EVERY DAY IN THE EVENING 90Tablet 3 HYDROcodone-Acetaminophen 5-325 MG Oral Tablet Take 1 Tablet by mouth every 6 hours as needed for Pain, Mild. 60 Tablet 0 Enoxaparin Sodium 80 MG/0.8ML Injection Solution Prefilled Syringe (Lovenox) Inject 80 mg under theskin in the morning and 80 mg before bedtime. Per hospital discharge [id number]. Warfarin Sodium 3 MG Oral Tablet (Coumadin) Take 1 Tablet by mouth in the morning. Per hospital discharge . Zinc 15 66 MG Oral Tablet (Zinc Sulfate) Take by mouth once. Patient unsure dosage No current facility-administered medications for this visit. Immunization History Administered Date(s) Administered COVID-19 mRNA, LNP-s, No Preserve, 2-Dose Series (Intoloop) 11/28/2020, 01/19/2021, 08/10/2021 COVID-19, MRNA-LNP, 23-24, PF, 30 MCG/0.3 mL, 12 YRS AND ABOVE, IM ([employer]) 07/14/2023 Covid-19 [address]enovirus, [place] 1 Vector, 2-dose Series, PF ([employer]) 08/10/2021 Covid-19, Mrna, Lnp-s, Pf, Bivalent, 30 Mcg, IM, 12 yrs and above (Intoloop) 09/06/2022 Pneumococcal Conjugate Vacc, 13 Valent (Prevnar) 09/01/2016 Pneumococcal Polysaccharide PPV23 (Pneumovax) 03/05/2015, 07/31/2016, 05/25/2019, 05/25/2020 Seasonal Influenza Virus Vaccine, Unspecified Formulation 08/05/2009, 06/25/2010, 06/09/2016, 06/14/2017, 06/21/2018, 07/12/2019 Seasonal Influenza, PF, 6 M & above, IM , (FluLaval or Fluzone) 06/14/2017, 06/21/2018, 06/20/2020 Seasonal Influenza, Quadrivalent Hd (Fluzone Hd) 05/27/2021, 06/30/2022, 07/14/2023 Seasonal Influenza, Quadrivalent, No Preserve, IM 06/09/2016 Seasonal Influenza, Recombinant, RIV4, PF, (Flublock) 06/19/2020, 06/20/2020 Seasonal Influenza, Split, IIV3, With Preserve, Inj 08/05/2009, 06/25/2010, 09/30/2011, 07/24/2012,06/12/2013, 07/28/2014, 06/05/2015 Seasonal Influenza, Trivalent, Adjuvanted, 65+ yrs 07/12/2019 TB Nichol Test 12/31/1979 TDAP (age 10 and older)(Boostrix) 12/20/2018 TDAP (age 11 and older)(Adacel) 05/30/2008 Varicella Zoster Vaccine (Adult) 12/30/2014, 06/20/2020 Zoster Vaccine Recombinant (Shingrix) 06/20/2020 Results for orders placed or performed in visit on 07/14/23 LIPID PANEL WITH DIRECT LDL IF TG IS HIGH Result Value Ref Range Triglycerides 154 <=174 mg/dL Cholesterol 153 <200 mg/dL HDL Cholesterol 40 (L) >49 mg/dL Non-HDL Cholesterol 113 <=159 mg/dL LDL Cholesterol 82 <=129 mg/dL Results for orders placed or performed in visit on 07/07/23 COMPREHENSIVE METABOLIC PANEL Result Value Ref Range BUN 12 6 - 20 mg/dL Creatinine 0.7 0.5 - 1.0 mg/dL Estimated Glomerular Filtration Rate >90 >=60 mL/min Sodium 143 135 - 146 mmol/L Potassium 4.2 3.5 - 5.1 mmol/L Chloride 106 98 - 107 mmol/L CO2 25 22 - 32 mmol/L Anion Gap 12 7 - 15 mmol/L Glucose 104 70 - 120 mg/dL Albumin 3.8 3.8 - 5.0 g/dL AST 28 10 - 35 U/L Alkaline Phosphatase 279 (H) 35 - 130 U/L Bilirubin, Total 0.2 <=1.2 mg/dL Calcium 9.4 8.4 - 10.2 mg/dL Protein 6.8 6.0 - 8.3 g/dL ALT 30 10 - 35 U/L O: Blood pressure 120/68, pulse 73, temperature 36.2 C (97.1 F), temperature source Tympanic, resp. rate 16, weight 69.4 kg (153 lb), SpO2 92%. Neck is supple without adenopathy or thyromegaly. Chest is symmetrical and moves normally. The lungs are clear without wheezes, rales, rhonchi or rubs, and the heart is regular without murmurs or gallops, or ectopy. PMI not displaced. She has left leg amputation at knee. A: PVD (peripheral vascular disease) (HCC) (Primary) HTN, goal below 140/90 - Losartan Potassium 25 MG Oral Tablet (Cozaar); TAKE 1 TABLET BY MOUTH EVERY DAY IN THE MORNING History of amputation of left lower extremity through tibia and fibula (HCC) Chronic deep vein thrombosis (DVT) of femoral vein of left lower extremity (HCC) Colostomy status (HCC) Dyslipidemia, goal LDL below 100 Continue other meds as before. Follow Up: Return if symptoms worsen or fail to improve. documented in this encounter Nursing Notes * Constanza Pedroza LPN - 09/19/2023 3:23 PM EST [facility] follow up documented in this encounter Plan of Treatment Upcoming Encounters Date Type Department Care Team (Late st Contact Info) Description 09/21/2023 5:40 PM EST Anticoagulation Pharmacy, [address] [place] [address] [place] [address] 10/09/2023 3:30 PM EST Imaging Radiology [address] [place] [address] 10/10/2023 1:00 PM EST [facility], [facility] [address] [facility] [place] [address] [facility] [place] [address] 11/07/2023 8:00 AM EST Office Visit Family Medicine [address] [place] [phone] Jimbo Torres MD [address] [place] [address] [place] [address] 11/15/2023 1:00 PM EST Office Visit Gastroenterology, [facility] [address] [facility] [place] [address] Cammy Mosqueda CRNP [address] [place] [address] Health Maintenance Due Date Last Done Comments [...] as of this encounter Visit Diagnoses Diagnosis PVD (peripheral vascular disease) (HCC)- Primary Peripheral vascular disease, unspecified HTN, goal below 140/90 Unspecified essential hypertension History of amputation of left lower extremity through tibia and fibula (HCC) Chronic deep vein thrombosis (DVT) of femoral vein of left lower extremity (HCC) Colostomy status (HCC) Colostomy status Dyslipidemia, goal LDL below 100 Other and unspecified hyperlipidemia documented in this encounter Care Teams Communications Tech Relationship Specialty Start Date End Date Sara Schwarz MD [address] [place] [address] [place] [phone] PCP - General Family Medicine 07/13/21 documented as of this encounter
--- OUTSIDE RECORDS SUMMARY | 2024-01-01 23:22 | External Medical Summary | Summary of Care ---
Author Name Unknown Organization [facility] Address [address] [place] [address] Phone [phone] Care Team Providers Care Nascar Racer Name Role Phone Sara Schwarz MD Primary Care Prov ider Reason for Visit * Reason Onset Date Comments Test Results 09/21/2023 INR 09/21 Encounter Details Date Type Department Care Team (Late st Contact Info) Description 09/21/2023 Telephone Family Medicine [address] [address] Sara Schwarz MD [address] [place] [address] [place] [address] Test Results (INR 09/21) Allergies Active Allergy Reactions Criticality Noted Date [...] lumbar region,Polyneuropathy in other diseases classified elsewhere ([facility]) Take 1 Tablet by mouth at bedtime. In addition to 50 mg tablet 90 Tablet 3 02/09/2023 Active Ukrqv-5-oqwn Ethyl Esters 1 GM Oral CapsuleIndications:Dy slipidemia, [...] left lower extremity through tibia and fibula ([facility]),Chronic bilateral back pain, unspecified back [...] 80 mg before bedtime. Per hospital discharge [id number]. 0 09/09/2023 Active Warfarin Sodium 3 MG [...] mRNA, LNP-s, No Pre serve, 2-Dose Series ([employer]) 01/19/2021,11/28/2020 COVID-19, MRNA-LNP, 23-24, P F, 30 MCG/0.3 mL, 12 YRS AND ABOVE, IM ([employer]) 07/14/2023 Covid-19 Adenovirus, [place] 1 Vector, 2-dose Series, PF ([employer]) 08/10/2021 Covid-19, Mrna, Lnp-s, Pf, B ivalent, 30 Mcg, IM, 12 yrs and above ([employer]) 09/06/2022 Pneumococcal Conjugate Vacc, 13 Valent (Prevnar) [...] Telephone Encounter - Janae Khan RPh - 09/21/2023 1:35 PM EST Noted by [facility]. Notes faxed to obtain INR on 09/26. Successful fax confirmation received. Janae Khan RPh, PharmD Clinical Pharmacist - [facility] 09/21/2023, 1:36 PM Ph.[phone] * Telephone Encounter - Eloisa Lowry LPN - 09/21/2023 10:39 AM EST Rupal RN calling from Luc[facility] . Patient's INR today, 09/21 is 1.5 Please fax MT notes for today's appt to Lucía once completed. Thank you. documented in this encounter Plan of Treatment Upcoming Encounters Date Type Department Care Team (Latest Contact Info) Description 09/21/2023 5:40 PM EST Anticoagulation Pharmacy, [address] [place] [address] [place] [address] Acute deep vein thrombosis (DVT) of other vein of lower extremity, unspecified laterality (HCC)* 09/26/2023 5:40 PM EST Anticoagulation Pharmacy, [address] [place] [address] [place] [address] 10/09/2023 3:30 PM EST Imaging Radiology [address] [place] [address] 10/10/2023 1:00 PM EST Office Visit Pharmacy, [facility] [address] [place] [address] [facility] [place] [address] 11/07/2023 8:00 AM EST Office Visit Family Medicine [address] [place] [phone] Jimbo Torres MD [address] [place] [address] [place] [address] 11/15/2023 1:00 PM EST Office Visit Gastroenterology, [facility] [address] [place] [address] Cammy Mosqueda CRNP [address] [place] [address] Health Maintenance Due Date Last Done Comments [...] filedocumented as of this encounter Care Teams Nascar Racer Relationship Specialty Start Date End Date Sara Schwarz MD [address] [place] [address] [place] [phone] PCP - General Family Medicine 07/13/21 documented as of this encounter
--- OUTSIDE RECORDS SUMMARY | 2024-01-01 23:22 | External Medical Summary | Summary of Care ---
Author Name Unknown Organization [facility] Address [address] [place] [address] Phone [phone] Care Team Providers Care Alteration Tailor Apprentice Name Role Phone Sara Schwarz MD Primary Care Prov ider Reason for Visit * Reason Comments Dosage Adjustment Via Phone (anticoag Cl inic) Encounter Details Date Type Department Care Team (Latest Contact Info) Description 09/21/2023 5:40 PM [facility] Anticoagulation Pharmacy, [address] [place] [address] [place] [address] Acute deep vein thrombosis (DVT) of other [...] lumbar region,Polyneuropathy in other diseases classified elsewhere ([facility]) Take 1 Tablet by mouth at bedtime. In addition to 50 mg tablet 90 Tablet 3 02/09/2023 Active Vxcik-1-qgkg Ethyl Esters 1 GM Oral CapsuleIndications:Dy slipidemia, [...] and fibula ([facility]),Chronic bilateral back pain, unspecified back location Take [...] 80 mg before bedtime. Per hospital discharge [id number]. 0 09/09/2023 Active Warfarin Sodium 3 MG [...] mRNA, LNP-s, No Pre serve, 2-Dose Series ([employer]) 01/19/2021,11/28/2020 COVID-19, MRNA-LNP, 23-24, P F, 30 MCG/0.3 mL, 12 YRS AND ABOVE, IM ([employer]ir[employer]) 07/14/2023 Covid-19 Adenovirus, [place] 1 Vector, 2-dose Series, PF ([employer]ag) 08/10/2021 Covid-19, Mrna, Lnp-s, Pf, B ivalent, 30 Mcg, IM, 12 yrs and above ([employer]) 09/06/2022 Pneumococcal Conjugate Vacc, 13 Valent (Prevnar) [...] this encounter Progress Notes * Janae Khan, [facility] - 09/21/2023 1:20 PM EST Images from the original note were not included. Medication Therapy Disease Management - Anticoagulation Patient: Eda Sousa Matiaslorrainealli | : 1950 Subjective Contacts Type Contact Phone/Fax 09/21/2023 01:31 PM EST Phone (Outgoing) Eda Estrada (Self) [phone] (H) Spoke to Patient Patient-Reported Symptoms: Patient Findings Negatives: Signs/symptoms of thrombosis, Signs/symptoms of bleeding, Change in health, Change in alcohol use, Change in activity, Upcoming invasive procedure, Missed doses, Extra doses, Change in medications, Change in diet/appetite, Bruising Objective Current Warfarin Dose As of 09/21/2023 Warfarin maintenance plan: No maintenance plan INR Result As of 09/21/2023 INR goal: 2.0-3.0 INR used for dosin.5 (09/21/2023) Assessment & Plan Warfarin Plan As of 09/21/2023 Full warfarin instructions: 09/21: 6 mg; 09/22: 6 mg; 09/23: 3 mg; 09/24: 6 mg; 1/1: 3 mg Next INR check: 09/26/2023 Repeat PT/INR in 5 day(s) Weekly dose: establishing Additional Dosing Information: Instructed to continue Lovenox at this time Description Takes warfarin AM Lovenox 70mg BID Faxed orders to [facility] at [phone]. # [phone] Ok to use fingerstick Dx: Acute DVT I82.409 Ordering provider: Sara Schwarz MD Please fax INR results to [facility] at [phone] [facility] can be reached at with any questions or problems Janae Khan [facility] Clinical Pharmacist 09/21/2023, 1:20 PM documented in this encounter Plan of Treatment Upcoming Encounters Date Type Department Care Team (Late st Contact Info) Description 09/26/2023 5:40 PM EST Anticoagulation Pharmacy, [address] [place] [address] [place] [address] 10/09/2023 3:30 PM EST Imaging Radiology [address] [place] [address] 10/10/2023 1:00 PM EST Office Visit Pharmacy, [facility] [address] [facility] [place] [address] [facility] [place] [address] 11/07/2023 8:00 AM EST Office Visit Family Medicine [address] [place] [phone] Jimbo Torres MD [address] [place] [address] [place] [address] 11/15/2023 1:00 PM EST Office Visit Gastroenterology, [facility] [address] [place] [address] Cammy Mosqueda CRNP [address] [place] [address] Health Maintenance Due Date Last Done Comments [...] Date/Time Associated Diagnosis Comments OUTSIDE LAB-PT/INR Routine 09/21/2023 documented in this encounter Results * OUTSIDE LAB-PT/INR (09/21/2023) INR-OUTSIDE LAB 1.5 09/21/2023 Narrative Resulting Agency Comment [facility] History Per Patient LABORATORY documented in this encounter Visit Diagnoses Diagnosis Acute deep vein thrombosis (DVT) of other vein of lower extremity, unspecified laterality (HCC)- Primary documented in this encounter Care Teams Alteration Tailor Apprentice Relationship Specialty Start Date End Date Sara Schwarz MD [address] [place] [address] [place] [phone] PCP - General Family Medicine 07/13/21 documented as of this encounter"
--- OUTSIDE RECORDS SUMMARY | 2024-01-01 23:23 | External Medical Summary | Continuity of Care Document ---
Author Name Unknown Organization [facility] [id number] Address [address] [place] [address] [id number] Care Team Providers Care Bibliographic Services Specialist Name Role Phone Sara Santos Primary Care Physician [phone] Encounter [facility] [id number] Date(s): 09/04/23 - 09/04/23 [facility] 0 Get10 [facility] 112A [facility] [address] [address] [place] [phone] Encounter Diagnosis Superficial skin infection(Discharge Diagnosis) - 09/04/23 Discharge Disposition: Home or Self Care Attending [...] 0, PRN: as needed for pain, Pharmacy: [facility] [place] Start Date: 04/15/22 Status: Ordered alendronate 70 [...] PO, Daily Start Date: 02/22/17 Status: Ordered [place] [employer]entials Start: 03/03/21 12:38:00 EDT, 4 cap, [...] daily prn Start Date: 03/03/21 Status: Ordered Mental Status 09/04/23 Barriers to Learning one year None evide nt Mandatory Health Literacy Documentation Yes Health Literacy Communication Barriers N ever Primary Language Greenlandic Problem List Condition Confirmation Course Effective Dates [...] Service Informant Superficial skin infection Discharge Diagnosis 09/04/23 Procedures Procedure Date Related Diagnosis Body Site Status Amputation 2022 Completed Colostomy 2 06/2021 Completed 1L BKA 2Done secondary to bowel perforation Social History Social History Type Response Smoking Status Current every day li ght smoker Sex Female Patient Care team information Care Team Personnel Name: MD Tom, Sara Pendleton Position: Referring DIRECT Member Role: Primary Care Provider Address: Address: [address] [place] [address] Name: Brian Kyle Blaine Position: Pharmacist Member Role: Pharmacy - Lifetime Name: Brina Lewis Kyle Position: Pharmacist Member Role: Pharmacy - Lifetime Address: Address: [address] [place] [address] [place] [address]
--- OUTSIDE RECORDS SUMMARY | 2024-01-01 23:23 | External Medical Summary | Summary of Care ---
Author Name Unknown Organization [facility] Address [address] [place] [address] Phone [phone] Care Team Providers Care Egg Buyer Name Role Phone Sara Schwarz MD Primary Care Prov ider Reason for Visit * Reason Onset Date Comments Hospital Follow-Up 09/11/2023 Encounter Details Date Type Department Care Team (Late st Contact Info) Description 09/11/2023 Telephone General Internal Medicine [facility] [place] [facility] [place] [id number] Sara Schwarz MD [address] [place] [address] [place] [address] Hospital Follow-Up Allergies Active Allergy Reactions Criticality Noted Date Comments Cetirizine & Related 10/13/2003 zyrtec-much gi distress Vancomycin High 07/20/2020 Other reaction(s): kidney issues, unknown, WORSENING RENAL FUNCTION documented as of this encounter (statuses as of 09/11/2023) Medications Medication Sig Dispensed Refills Start Date [...] 180 days 1 Each 1 03/15/2022 Active Polysaccharide-Iron Complex 150 MG Oral Capsule Take by mouth . 0 Active Iron 325 (65 Fe) MG Oral Tablet Take by mouth. 0 Active Fenoprofen Calcium 400 MG Oral Capsule Take by mouth. 0 A ctive Vitamin D 25 MCG (1000 UT) Oral Tablet Take by mouth. 0 Active amLODIPine Besylate 10 MG Oral Tablet (Norvasc)Indications :HTN, goal below 140/90 TAKE 1 TABLET BY MOUTH EVERY DAY IN THE MORNING 90 Tablet 1 01/20/2023 Active Amitriptyline HCl 25 MG Oral Tablet (Elavil)Indications: Other osteoarthritis of spine, lumbar region,Polyneuropath y in other diseases classified elsewhere (HCC) Take 1 Tablet by mouth at bedtime. In addition to 50 mg tablet 90 Tablet 3 02/09/2023 Active Fwvsf-5-fsqu Ethyl Esters 1 GM Oral CapsuleIndications:D yslipidemia, goal LDL below 100 Take 4 capsules daily by mouth 360 Capsule 11 02/23/2023 Active Amitriptyline HCl 50 MG Oral Tablet (Elavil) TAKE 1 TABLET BY MOUTH EVERYDAY AT BEDTIME 90 Tablet 3 06/02/2023 Active tiZANidine HCl 4 MG Oral Tablet (Zanaflex)Indication s:Cervicalgia,DDD (degenerative disc disease), cervical,Spasm of muscle TAKE 1/2-1 TABLET BY MOUTH DAILY NEEDED FOR SPAMS 90 Tablet 1 06/27/2023 Active Losartan Potassium 25 MG Oral Tablet (Cozaar)Indications: HTN, goal below 140/90 TAKE 1 TABLET BY MOUTH EVERY DAY IN THE MORNING 90 Tablet 0 06/27/2023 Active Pregabalin 150 MG Oral Capsule (Lyrica) Take 1 Capsule by mouth in the morning and 1 Capsule at noon and 1 Capsule before bedtime. 90 Capsule 5 07/18/2023 Active busPIRone HCl 10 MG Oral Tablet (Buspar)Indications: Anxiety TAKE 1 TABLET BY MOUTH IN THE MORNING AND BEFORE BEDTIME 180 Tablet 3 07/19/2023 Active Mesalamine 1.2 GM Oral Tablet Delayed Release (Lialda) MESALAMINE 1.2 GM TBEC 0 Active traZODone HCl 50 MG Oral Tablet (Desyrel) Take by mouth. 0 Active Doxycycline Hyclate 100 MG Oral Capsule Take 1 Capsule by mouth in the morning and 1 Capsule before bedtime. 0 07/26/2023 Active Probiotic Product Oral Capsule Take 1 Capsule by mouth in the morning. 3,000 mmu cells daily with meals . 0 07/26/2023 Active HYDROcodone-Acetamin ophen 10-325 MG Oral TabletIndications:Hi story of amputation of left lower extremity through tibia and fibula (HCC),Chronic bilateral back pain, unspecified back location Take 1 Tablet by mouth 2 times a day as needed for Pain, Severe. 60 Tablet 0 08/01/2023 Active HYDROcodone-Acetamin ophen 5-325 MG Oral TabletIndications:Am putation stump infection (HCC) Take 1 Tablet by mouth every 6 hours as needed for Pain, Mild. 60 Tablet 0 08/18/2023 Active Alendronate Sodium 70 MG Oral Tablet (Fosamax)Indications :Age-related osteoporosis without current pathological fracture TAKE 1 TABLET BY MOUTH ONCE A WEEK. WITH 8 OZ. WATER 30 MINUTES BEFORE FIRST MEAL OF THE DAY REMAIN UPRIGHT FOR 30 MIN AFTER TAKING 12 Tablet 1 08/28/2023 Active OxyCONTIN 10 MG Oral Tablet ER 12 Hour Abuse-DeterrentIndic ations:History of amputation of left lower extremity through tibia and fibula (HCC),Chronic bilateral back pain, unspecified back location Take 1 Tablet by mouth in the morning. Brand necessary. 30 Tablet 0 08/30/2023 Active Atorvastatin Calcium 20 MG Oral Tablet (Lipitor)Indications :Dyslipidemia, goal LDL below 100 TAKE 1 TABLET BY MOUTH EVERY DAY IN THE EVENING 90 Tablet 3 09/03/2023 Active Enoxaparin Sodium 80 MG/0.8ML Injection Solution Prefilled Syringe (Lovenox) Inject 80 mg under the skin in the morning and 80 mg before bedtime. Per hospital discharge [id number]. 0 09/09/2023 Active Warfarin Sodium 3 MG Oral Tablet (Coumadin) Take 1 Tablet by mouth in the morning. Per hospital discharge . 0 09/09/2023 Active documented as of this encounter (statuses as of 09/11/2023) Active Problems Problem Noted Date Diagnosed Date Superior mesenteric artery stenosis 2022 Colostomy status [...] as of this encounter (statuses as of 09/11/2023) Resolved Problems Problem Noted Date Diagnosed Date [...] as of this encounter (statuses as of 09/11/2023) Immunizations Name Administration Dates Next Due COVID-19 mRNA, LNP-s, No Pre serve, 2-Dose Series ([employer]) 01/19/2021,11/28/2020 COVID-19, MRNA-LNP, 23-24, P F, 30 MCG/0.3 mL, 12 YRS AND ABOVE, IM ([employer] LabirnatT-Quad 22) 07/14/2023 Covid-19 Adenovirus, [place] 1 Vector, 2-dose Series, PF ([employer]) 08/10/2021 Covid-19, Mrna, Lnp-s, Pf, B ivalent, 30 Mcg, IM, 12 yrs and above ([employer]) 09/06/2022 Pneumococcal Conjugate Vacc, 13 Valent (Prevnar) [...] Telephone Encounter - Janae Khan RPh - 09/11/2023 3:28 PM EST Addressed by MTM in separate encounter. Janae Khan RPh, PharmD Clinical Pharmacist - Soliciting Freight Agent Medication Therapy [facility] 09/11/2023, 3:28 PM Ph.[phone] * Telephone Encounter - Kelvin Padgett RN - 09/11/2023 12:57 PM EST Patient discharged to home from [facility] 09/09/23 after treament for DVT. Patient discharge on lovenox bridge. Lovenox 70mg BID sq. [facility] home health following with the patient. Please consider MTM referral for coumadin mgmt. Hospital follow up scheduled with Dr Mckinney 09/15. Thank you documented in this encounter Plan of Treatment Upcoming Encounters Date Type Department Care Team (Latest Contact Info) Description 09/11/2023 5:10 PM EST Anticoagulation Pharmacy, [facility] [address] [place] [address] [facility] [place] [address] Chronic pain syndrome* 09/13/2023 5:40 PM EST Anticoagulation Pharmacy, [facility] [place] [address] [facility] [address] [facility] [place] [address] 10/09/2023 3:30 PM EST Imaging Radiology [address] [place] [address] 10/10/2023 1:00 PM EST Office Visit Pharmacy, [facility] [place] [address] [facility] [address] [place] [address] 11/15/2023 1:00 PM EST Office Visit [facility]enterology, [facility] [place] [address] Cammy Mosqueda CRNP [address] [facility] [place] [address] Health Maintenance Due Date Last Done Comments [...] Last Indicated Resolved Time MRSA 07/14/2023 07/14/2023 documented as of this encounter Care Teams Egg Buyer Relationship Specialty Start Date End Date Sara Schwarz MD [address] [place] [address] [place] [address] PCP - General Family Medicine 07/13/21 documented as of this encounter
--- OUTSIDE RECORDS SUMMARY | 2024-01-01 23:23 | External Medical Summary | Summary of Care ---
Author Name Unknown Organization [facility] Address [address] [place] [address] Phone [phone] Care Team Providers Care Preschool Aide Name Role Phone Sara Schwarz MD Primary Care Prov ider Reason for Visit * Reason Comments Dosage Adjustment Via Phone (anticoag Cl inic) Encounter Details Date Type Department Care Team (Latest Contact Info) Description 09/15/2023 5:30 PM [facility] Anticoagulation Pharmacy, [address] [place] [address] [place] [address] Acute deep vein thrombosis (DVT) of other vein of lower extremity, unspecified laterality (HCC)* Allergies Active Allergy Reactions Criticality Noted Date Comments Cetirizine & Related 10/13/2003 zyrtec-much gi distress Vancomycin High 07/20/2020 Other reaction(s): kidney issues, unknown, WORSENING RENAL FUNCTION documented as of this encounter (statuses as of 09/15/2023) Medications Medication Sig Dispensed Refills Start Date [...] mg tablet 90 Tablet 3 02/09/2023 Active Pelxc-0-jzco Ethyl Esters 1 GM Oral CapsuleIndications:Dy slipidemia, [...] 80 mg before bedtime. Per hospital discharge [id number]. 0 09/09/2023 Active Warfarin Sodium 3 MG Oral Tablet (Coumadin) Take 1 Tablet by mouth in the morning. Per hospital discharge . 0 09/09/2023 Active Zinc 15 66 MG Oral Tablet (Zinc Sulfate) Take by mouth once. Patient unsure dosage 0 Active documented as of this encounter (statuses as of 09/15/2023) Active Problems Problem Noted Date Diagnosed Date [...] as of this encounter (statuses as of 09/15/2023) Resolved Problems Problem Noted Date Diagnosed Date [...] as of this encounter (statuses as of 09/15/2023) Immunizations Name Administration Dates Next Due COVID-19 mRNA, LNP-s, No Pre serve, 2-Dose Series (Savor) 01/19/2021,11/28/2020 COVID-19, MRNA-LNP, 23-24, P F, 30 MCG/0.3 mL, 12 YRS AND ABOVE, IM ([employer]ifind-ComirnatGoInstant) 07/14/2023 Covid-19 Adenovirus, [place] 1 Vector, 2-dose Series, PF ([employer]) 08/10/2021 Covid-19, Mrna, Lnp-s, Pf, B ivalent, 30 Mcg, IM, 12 yrs and above (Savor) 09/06/2022 Pneumococcal Conjugate Vacc, 13 Valent (Prevnar) [...] Progress Notes * Janae Khan RPh - 09/15/2023 12:35 PM EST Medication Therapy Disease Management - Anticoagulation Patient: Eda Estrada | : 1950 Subjective Contacts Type Contact Phone/Fax 09/15/2023 12:43 PM EST Phone (Outgoing) Eda Estrada (Self) [phone] (H) Spoke to Patient Patient-Reported Symptoms: Objective Current Warfarin Dose As of 09/15/2023 Warfarin maintenance plan: No maintenance plan INR Result As of 09/15/2023 INR goal: 2.0-3.0 INR used for dosin.5 (09/15/2023) Assessment & Plan Warfarin Plan As of 09/15/2023 Full warfarin instructions: 09/15: 3 mg; 09/16: 3 mg; 09/17: 4.5 mg; 09/18: 3 mg Next INR check: 09/19/2023 Repeat PT/INR in 4 day(s) Weekly dose: establishing Additional Dosing Information: Provided with toll-free [facility] number for over the weekend/holiday with any questions or concerns. Description Instructed to STOP Lovenox 70 mg BID Takes warfarin AM Janae Khan RPh Clinical Pharmacist 09/15/2023, 12:35 PM * Christina Cabrera PHARM Tech - 09/15/2023 11:27 AM EST Caller's name: [email or web address] Preferred call back number(OFFICE NUMBER FOR ): [phone] Reason for call: [facility] results. Result is 2.5 which was drawnon 09.15.23. Patient is not being discharged. Thank you, Christina Cabrera Dye Worker Centralized [facility]acy Services ([facility]) (Formerly Telepharmacy) 09/15/2023,11:27 AM documented in this encounter Plan of Treatment Upcoming Encounters Date Type Department Care Team (Late st Contact Info) Description 09/19/2023 2:30 PM EST Anticoagulation Pharmacy, [address] [place] [address] [place] [address] 09/19/2023 3:00 PM EST Office Visit Family Medicine [address] [place] [phone] Deedee Campoverde PA-C [address] [place] [address] [place] [address] 10/09/2023 3:30 PM EST Imaging Radiology [address] [place] [address] 10/10/2023 1:00 PM EST Office Visit Pharmacy, [address] [place] [address] [place] [address] 11/15/2023 1:00 PM EST Office Visit Gastroenterology, [address] [place] [address] Cammy Mosqueda CRNP [address] [place] [address] Health Maintenance Due Date Last Done Comments [...] Date/Time Associated Diagnosis Comments OUTSIDE LAB-PT/INR Routine 09/15/2023 documented in this encounter Results * OUTSIDE LAB-PT/INR (09/15/2023) INR-OUTSIDE LAB 2.5 09/15/2023 History Per Patient LABORATORY documented in this encounter Visit Diagnoses Diagnosis Acute deep vein thrombosis (DVT) of other vein of lower extremity, unspecified laterality (HCC)- Primary documented in this encounter Care Teams Preschool Aide Relationship Specialty Start Date End Date Sara Schwarz MD [address] [place] [address] [place] [address] PCP - General Family Medicine 07/13/21 documented as of this encounter"
--- OUTSIDE RECORDS SUMMARY | 2024-01-01 23:23 | External Medical Summary | Summary of Care ---
Author Name Unknown Organization [facility] Address [address] [place] [address] Phone [phone] Care Team Providers Care Calender Supervisor Name Role Phone Vijaya Garcia MD Primary Care Prov ider Encounter Details Date Type Department Care Team (Late st Contact Info) Description 09/11/2023 Refill Family Medicine [address] [phone] Vijaya Garcia MD [address] [place] [address] [place] [address] History of amputation of left lower extremity through tibia and fibula (HCC); Chronic bilateral back pain, unspecified back location; Amputation stump infection ([facility]) Allergies Active Allergy Reactions Criticality Noted Date Comments Cetirizine & Related 10/13/2003 zyrtec-much gi distress Vancomycin High 07/20/2020 Other reaction(s): kidney issues, unknown, WORSENING RENAL FUNCTION documented as of this encounter (statuses as of 09/12/2023) Medications Medication Sig Dispensed Refills Start Date [...] mg tablet 90 Tablet 3 02/09/2023 Active Opkrf-2-scym Ethyl Esters 1 GM Oral CapsuleIndications: Dyslipidemia, [...] Pain, Mild. 60 Tablet 0 09/12/2023 Active HYDROcodone-Acetami nophen 5-325 MG Oral TabletIndications:A mputation stump infection (HCC) Take 1 Tablet by mouth every 6 hours as needed for Pain, Mild. 60 Tablet 0 08/18/2023 3 Discontinu ed(Refill) documented as of this encounter (statuses as of 09/12/2023) Active Problems Problem Noted Date Diagnosed Date [...] as of this encounter (statuses as of 09/12/2023) Resolved Problems Problem Noted Date Diagnosed Date [...] as of this encounter (statuses as of 09/12/2023) Immunizations Name Administration Dates Next Due COVID-19 mRNA, LNP-s, No Pre serve, 2-Dose Series (Pfizer) 01/19/2021,11/28/2020 COVID-19, MRNA-LNP, 23-24, P F, 30 MCG/0.3 mL, 12 YRS AND ABOVE, IM (PFIZER-ComirnatCode71) 07/14/2023 Covid-19 Adenovirus, [place] 1 Vector, 2-dose Series, PF (Kaizena) 08/10/2021 Covid-19, Mrna, Lnp-s, Pf, B ivalent, [...] Telephone Encounter - Vijaya Garcia MD - 09/12/2023 1:17 PM EST Signed Prescriptions: Disp Refills HYDROcodone-Acetaminophen 5-325 MG Oral Ta*60 Tab*0 Sig: Take 1 Tablet by mouth every 6 hours as needed for Pain, Mild.Authorizing Provider: VIJAYA GARCIA * Telephone Encounter - Sandie Zarate LPN - 09/11/2023 10:24 AM EST Pt calling for refill hydrocodone, the pharm is now able to the 5-325. Pending Prescriptions: Disp Refills HYDROcodone-Acetaminophen 5-325 MG Oral T*60 Tab*0 Sig: Take 1 Tablet by mouth every 6 hours as needed for Pain, Mild. Last Visit: 08/01/2023 (in office), Visit date not found (telemedicine) Next Visit: Visit date not found Last date the medication was ordered: 08/18/23 Patient Active Problem List Diagnosis Code Carpal [...] extremity through tibia and fibula ([facility]) Z89.512 Anxiety F41.9 Polyneuropathy in other diseases classified elsewhere ([facility]) G63 PVD (peripheral vascular disease) ([facility]) I73.9 Rectocele N81.6 Cystocele, midline N81.11 Colostomy status ([facility]) Z93.3 Superior mesenteric artery stenosis ([facility]) K55.1 Labs: Lab Results Component Value Date/Time CREATININE [...] Care Team (Late st Contact Info) Description 09/13/2023 5:40 PM EST Anticoagulation Pharmacy, [facility] [address] [place] [address] [facility] [place] [address] [place] [address] 10/09/2023 3:30 PM EST Imaging Radiology [address] [place] [address] 10/10/2023 1:00 PM EST Office Visit Pharmacy, [facility] [address] [place] [address] [facility] [address] [place] [address] 11/15/2023 1:00 PM EST Office Visit Gastroenterology, [facility] [address] [place] [address] Cammy Mosqueda CRNP [address] [place] [address] Health Maintenance Due Date Last Done Comments [...] Chronic bilateral back pain, unspecified back location 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
--- OUTSIDE RECORDS SUMMARY | 2024-01-01 23:23 | External Medical Summary | Summary of Care ---
Author Name Unknown Organization [facility] Address [address] [place] [address] Phone [phone] Care Team Providers Care Cylinder Filler Name Role Phone Sara Schwarz MD Primary Care Prov ider Reason for Visit * Reason Comments Dosage Adjustment Via Phone (anticoag Cl inic) Encounter Details Date Type Department Care Team (Latest Contact Info) Description 09/11/2023 5:10 PM EST Anticoagulation Pharmacy, [facility] 132 [place] [address] [facility] [address] Chronic pain syndrome* Allergies Active Allergy Reactions [...] mg tablet 90 Tablet 3 02/09/2023 Active Ewriz-3-nqer Ethyl Esters 1 GM Oral CapsuleIndications:D yslipidemia, [...] THE EVENING 90 Tablet 3 09/03/2023 Active documented as of this encounter (statuses [...] mRNA, LNP-s, No Pre serve, 2-Dose Series ([employer]ential) 01/19/2021,11/28/2020 COVID-19, MRNA-LNP, 23-24, P F, 30 MCG/0.3 mL, 12 YRS AND ABOVE, IM (PFIZER-Comirnaty) 07/14/2023 Covid-19 Adenovirus, [place] 1 Vector, 2-dose Series, PF ([employer]) 08/10/2021 Covid-19, Mrna, Lnp-s, Pf, B ivalent, [...] as of this encounter Progress Notes * Megan Mcknight, [facility] - 09/11/2023 1:07 PM EST Medication Therapy Disease Management - Anticoagulation Patient: Eda Estrada | : 1950 Subjective Contacts Type Contact Phone/Fax 09/11/2023 11:50 AM EST Phone (Incoming) 09/11/2023 11:53 AM EST Phone (Incoming) Mary Castrejon (Other) [phone] Patient-Reported Symptoms: Patient Findings Negatives: Signs/symptoms of thrombosis, Signs/symptoms of bleeding, Change in health, Change in alcohol use, Change in activity, Upcoming invasive procedure, Missed doses, Extra doses, Change in medications, Change in diet/appetite, Bruising Objective Current Warfarin Dose As of 09/11/2023 Warfarin maintenance plan: No maintenance plan INR Result As of 09/11/2023 INR goal: INR used for dosin.2 (09/11/2023) Assessment & Plan Warfarin Plan As of 09/11/2023 Full warfarin instructions: 09/11: 3 mg; 09/12: 6 mg; 09/13: 6 mg Next INR check: 09/13/2023 Repeat PT/INR in 2 day(s) Weekly dose: not changed Additional Dosing Information: Description Lovenox 70 mg BID Takes warfarin AM Next PT/INR: 09/13 [facility] Ordering Provider: Dr. Sara Guzman M Roxanna, [facility] Clinical Pharmacist 09/11/2023, 1:18 PM Electronically signed by Megan Mcknight [facility] at 09/11/2023 1:23 PM EST * Aliyah Bob OSA - 09/11/2023 11:53 AM EST Caller's name: Mary Galan Preferred call back number(OFFICE NUMBER FOR ): [phone] Reason for call: nursing facility, [facility] , calling with INR results. Result is 1.2 which was drawn on 09/11/23. Patient is not being discharged. Thank you, Aliyah Bob Board Member [facility] 09/11/2023,11:53 AM documented in this encounter Plan of Treatment Upcoming Encounters Date Type Department Care Team (Late st Contact Info) Description 10/09/2023 3:30 PM EST Imaging Radiology [address] [place] [address] 10/10/2023 1:00 PM EST Office Visit Pharmacy, [facility] 132 [facility] [place] [address] [facility] [address] [place] [address] 11/15/2023 1:00 PM EST Office Visit Gastroenterology, [facility] [address] [place] [address] Cammy Mosqueda CRNP [address] [place] [address] Health Maintenance Due Date Last Done Comments [...] Date/Time Associated Diagnosis Comments OUTSIDE LAB-PT/INR Routine 09/11/2023 documented in this encounter Results * OUTSIDE LAB-PT/INR (09/11/2023) INR-OUTSIDE LAB 1.2 History Per Patient LABORATORY documented in this encounter Visit Diagnoses Diagnosis Chronic pain syndrome- Primary documented in this encounter Additional Health Concerns Infection Onset Date Last Indicated Resolved Time MRSA 07/14/2023 07/14/2023 documented as of this encounter Care Teams Cylinder Filler Relationship Specialty Start Date End Date Sara Schwarz MD [address] [place] [address] [place] [id number] PCP - General Family Medicine 07/13/21 documented as of this encounter"
--- OUTSIDE RECORDS SUMMARY | 2024-01-01 23:23 | External Medical Summary | Summary of Care ---
Author Name Unknown Organization [facility] Address [address] [place] [address] Phone [phone] Care Team Providers Care Museum Assistant Name Role Phone Sara Schwarz MD Primary Care Prov ider Reason for Visit * Reason Onset Date Comments Hospital Follow-Up 09/11/2023 YAHAIRA for [facility] first attempt Encounter Details Date Type Department Care Team (Late st Contact Info) Description 09/11/20[address] [place] [address] Libia Dunham, ULISES Hospital Follow-Up (YAHAIRA for [facility] first att... Allergies Active Allergy Reactions Criticality Noted Date Comments Cetirizine & Related 10/13/2003 zyrtec-much gi distress Vancomycin High 07/20/2020 Other reaction(s): kidney issues, unknown, WORSENING RENAL FUNCTION documented as of this encounter (statuses as of 09/13/2023) Medications Medication Sig Dispensed Refills Start Date [...] mg tablet 90 Tablet 3 02/09/2023 Active Jaydw-1-pipj Ethyl Esters 1 GM Oral CapsuleIndications: Dyslipidemia, [...] 5-325 MG Oral TabletIndications:A mputation stump infection ([facility]) Take 1 Tablet by mouth every 6 hours as needed for Pain, Mild. 60 Tablet 0 09/12/2023 Active Enoxaparin Sodium 80 MG/0.8ML Injection Solution Prefilled Syringe (Lovenox) Inject 80 mg under the skin in the morning and 80 mg before bedtime. Per hospital discharge [id number]. 0 09/09/2023 Active Warfarin Sodium 3 MG Oral Tablet (Coumadin) Take 1 Tablet by mouth in the morning. Per hospital discharge . 0 09/09/2023 Active Zinc 15 66 MG Oral Tablet (Zinc Sulfate) Take by mouth once. Patient unsure dosage 0 Active Polysaccharide-Iron Complex 150 MG Oral Capsule Take by mouth . 0 3 Discontinu ed(Medicat ion List Clean Up) Fenoprofen Calcium 400 MG Oral Capsule Take by mouth. 0 3 Discontinu ed(Medicat ion List Clean Up) Mesalamine 1.2 GM Oral Tablet Delayed Release (Lialda) MESALAMINE 1.2 GM TBEC 0 3 Discontinu ed(Medicat ion List Clean Up) traZODone HCl 50 MG Oral Tablet (Desyrel) Take by mouth. 0 3 Discontinu ed(Medicat ion List Clean Up) Doxycycline Hyclate 100 MG Oral Capsule Take 1 Capsule by mouth in the morning and 1 Capsule before bedtime. 0 07/26/2023 3 Discontinu ed(Medicat ion List Clean Up) HYDROcodone-Acetami nophen 5-325 MG Oral TabletIndications:A mputation stump infection (HCC) Take 1 Tablet by mouth every 6 hours as needed for Pain, Mild. 60 Tablet 0 08/18/2023 3 Discontinu ed(Refill) documented as of this encounter (statuses as of 09/13/2023) Active Problems Problem Noted Date Diagnosed Date [...] as of this encounter (statuses as of 09/13/2023) Resolved Problems Problem Noted Date Diagnosed Date [...] as of this encounter (statuses as of 09/13/2023) Immunizations Name Administration Dates Next Due COVID-19 mRNA, LNP-s, No Pre serve, 2-Dose Series ([employer]) 01/19/2021,11/28/2020 COVID-19, MRNA-LNP, 23-24, P F, 30 MCG/0.3 mL, 12 YRS AND ABOVE, IM ([employer]) 07/14/2023 Covid-19 Adenovirus, [place]oto 1 Vector, 2-dose Series, PF ([employer]) 08/10/2021 Covid-19, Mrna, Lnp-s, Pf, B ivalent, 30 Mcg, IM, 12 yrs and above ([employer]) 09/06/2022 Pneumococcal Conjugate Vacc, 13 Valent (Prevnar) [...] encounter Miscellaneous Notes * Telephone Encounter - Imelda Keen LPN - 09/13/2023 11:32 AM EST Patient is aware and verbalizes understanding. Appt scheduled with Deedee on 09/19/2023 at 3:00pm * Telephone Encounter - Aidee Manjarrez LPN - 09/13/2023 9:06 AM EST Needs Hospital F/u Apt BUDDY does not have anything within 14 days She needs to SEE another provider now then can f/u with PCP in 1 mo Left Her a VM to contact clinic back at [phone] 09/19/23 she can be scheduled with Deedee then 1 mo with BUDDY (After 09/19 apt) * Telephone Encounter - Libia Dunham RN - 09/12/2023 3:46 PM EST Transitions of Care Note Reason for Referral:Recent Admission Phone visit for follow up: yahaira Admitted to: [facility], Date: 09.05.23 Discharged to: home, Date: 09.09.23 Diagnosis driving hospitalization: DVT Per Hospital discharge Per other encounter : Patient discharged to home from [facility] 09/09/23 after treament for DVT. Patient discharge on lovenox bridge. Lovenox 70mg BID sq. [facility] home health following with the patient. Please consider [facility] referral for coumadin mgmt. Hospital follow up scheduled with Dr Mckinney 09/15. Per hospital discharge : A follow-up chest CT in 6 months is recommended. Will need home health services including INR check at home PCP in [address] Reji Palafox, [facility] in 1 to 2 weeks Source/Contact: Patient SUBJECTIVE Consent: Verbal consent for review of hospital discharge: Yes REVIEW OF SYSTEMS Patient/Other Reports: Current patient/caregiver problems or concerns: follow up with pcp CV: Denies problems Pulmonary: Denies problems Chills/Sweats/Fever:Denies chills/sweats Denies fever Appetite:Denies problems such as nausea, vomiting, burning, decreased appetite Current diet: reg Bowel: denies problems Bladder: denies problems Wound (If applicable): Site-patient does go to wound clinic and infusions of antibiotics Pain:Denies Intensity- 8 (Scale 0-10) when its severe Sleep:Denies problems FUNCTIONAL STATUS: ADL'S: Needs Assistance With:Bathing and Dressing IADL'S: Needs Assistance With:Grocery Shopping, Routine Housework, and Attending to safety Cognitive and Mental Health: denies problems, alert and oriented x 3, and able to communicate, understand instructions, process information. MEDICATION RECONCILIATION Medications: Reports all medications taken as prescribed. OBJECTIVE ASSESSMENT Medication Risk Assessment: No risks identified Did patient fail outpatient treatment? No Discharge instructions available for review? Yes PLAN Symptom Monitoring Interventions:Member/caregiver education - signs and symptoms to contact PrimaryCare (DO NOT DELETE-Three tovar symptoms patient is to report to PCP) 1. Worsening pain 2. Worsening infection/fevers 3. Chest pain or sob. Agency Legal CounselIrrigation Equipment Installer of Care interventions/Action Plan: Trying to coordinate an appointment with PCP. Message sent to pcp for advice. Educated on role of YAHAIRA completed with patient/caregiver. Educated patient/caregiver on patient right to have input on YAHAIRA plan of care. Verification of Home Health/DME if indicated: YES Identified Care Gaps: Yes Care Gaps closed this call: Transition of Care follow-up communication Re-evaluation of Plan of Care and progress towards goals achievement: Patient education this visit: Verbal, patient to watch for any worsening pain or signs of infection Plan to instructed to call Primary Care Provider with change in symptoms or as needed before next follow-up, verbalizes understanding and agrees with plan. Coumadin 3 mg daily with Lovenox bridge 70 mg twice daily until INR therapeutic Patient to be followed up by Coumadin clinic on Monday, will need INR check on Monday by home health service Will need to follow-up with screw machine adjuster automatic/oncologist Dr. Reji Palafox at [facility] outpatient clinic in 1 to 2 weeks. Patient states she will be calling for that appointment. Libia Dunham RN * Telephone Encounter - Sandie Zarate LPN - 09/12/2023 9:49 AM EST Pt calling to make hospital discharge appt with PCP. No HD appts avail PCP until 12/27/23. I offered other provider in the office she declined, stating she will only see PCP. "No one else will be able to do what she can do." Pt inquiring if PCP would be willing to squeeze her in? Please advise. * Telephone Encounter - Libia Dunham RN - 09/11/2023 1:41 PM EST Transitions of Care Note Reason for Referral:Recent Admission Phone visit for follow up: yahaira Admitted to: [facility], Date: 09.05.23 Discharged to: home, Date: 09.09.23 Diagnosis driving hospitalization: DVT Per Hospital discharge Coumadin 3 mg daily with Lovenox bridge 70 mg twice daily until INR therapeutic Patient to be followed up by Coumadin clinic on Monday, will need INR check on Monday by home health service Will need to follow-up with screw machine adjuster automatic/oncologist Dr. Reji Palafox at [facility] outpatient clinic in 1 to 2 weeks. Plan per hospital discharge Per other encounter : Patient discharged to home from [facility] 09/09/23 after treament for DVT. Patient discharge on lovenox bridge. Lovenox 70mg BID sq. [facility] home health following with the patient. Please consider [facility] referral for coumadin mgmt. Hospital follow up scheduled with Dr Mckinney 09/15. Per hospital discharge : A follow-up chest CT in 6 months is recommended. Will need home health services including INR check at home PCP in [address] Reji Palafox, [facility] in 1 to 2 weeks Left message for the patient to call the office. Libia Dunham RN documented in this encounter Plan of Treatment Upcoming Encounters Date Type Department Care Team (Late st Contact Info) Description 09/13/2023 5:40 PM EST Anticoagulation Pharmacy, [facility] [address] [place] [address] [facility] [address] [place] [address] 09/19/2023 3:00 PM EST Office Visit [address] [place] [phone] Deedee Campoverde PA-C [address] [place] [address] [place] [address] 10/09/2023 3:30 PM EST Imaging Radiology [address] [place] [address] 10/10/2023 1:00 PM EST Office Visit Pharmacy, [facility] [address] [place] [address] [facility] [address] [place] [address] 11/15/2023 1:00 PM EST Office Visit Gastroenterology, [facility] [address] [place] [address] Cammy Mosqueda CRNP [address] [place] [address] Health Maintenance Due Date Last Done Comments [...] documented as of this encounter Care Teams Museum Assistant Relationship Specialty Start Date End Date Sara Schwarz MD [address] [place] [address] [place] [address] PCP - General Family Medicine 07/13/21 documented as of this encounter
--- OUTSIDE RECORDS SUMMARY | 2024-01-01 23:23 | External Medical Summary ---
Author Name Unknown Address Unknown Organization : Laboratory Report Ordering Provider Test Date Status PARVEEN MARTINEZ 09/19/2023 14:47:05 Final Therapeutic ranges for non-o perative patients:
Prophylaxsis/treatment of DVT: (Range:2.0-3.0)
Treatment of pulmonary embolism:(Range:2.0-3.0)
Prevention of systemic embolism from:
-tissue heart valves
-acute myocardial infarction
-valvular heart disease
-atrial fibrillation
(Range: 2.0-3.0)
Mechanical prosthetic valves: (Range: 2.5-3.5) Observation Date Value Abnormality Reference (Units ) Status INR in Capillary blood by Coagulation assay 09/19/2023 14:47:05 1.6 (INR) Final Performing Location
--- OUTSIDE RECORDS SUMMARY | 2024-01-01 23:23 | External Medical Summary | Summary of Care ---
Author Name Unknown Organization [facility] Address [address] [place] [address] Phone [phone] Care Team Providers Care C Engineer Name Role Phone Sara Schwarz MD Primary Care Prov ider Reason for Referral * Evaluate & Treat - Unlimited Visits (Within 3 days (urgent)) - Pending Review Specialty Diagnoses / Procedures Referred By Usha t Referred To Contact ANTI-COAG CLINIC / Pharmacy Diagnoses Acute deep vein thrombosis (DVT) of other vein of lower extremity, unspecified laterality (HCC) Megan Mcknight, [facility] [address] [place] [address] Referral ID Status Reason Start Date Expiration Date Visits Requested Visits Authorized [id number] Pending Review Specialty Services Required 3 03/09/2024 99 99 Question Answer Referral Priority Within 3 days (urgent) Where should this appointment be scheduled? Gely Comments Anticoagulation referral for management of: Warfarin Indication and INR goal for Warfarin Management: VTE: Treatment of Deep Vein Thrombosis, INR Goal: 2.0 - 3.0 Relevant History: N/A Enoxaparin bridging required? Yes Minimum frequency patient should be seen in person for medication management: as appropriate per clinical condition and patient status By my signature, I understand that my patient Eda Estrada will have her medication therapy managed by the [facility] Medication Therapy Disease Management Clinic (MTDM) per established policies, procedures, and protocols. I also certify that this referral may serve as an initiation of service for the management of drug therapy in the above noted patient. [facility] providers will be responsible for scheduling patient visits, obtaining appropriate laboratory studies, and adjusting medication management therapy per patient's need, in addition to those roles spelled out in the clinic policy, procedures, and drug management protocols. I understand that the service provided by the [facility] is voluntary and have informed patient that they can refuse the service at their discretion. I am aware that the [facility] Clinic will provide me with a copy of the patient encounter via my [employer] In[employer]ream[employer]. I authorize the [facility] to carry out these activities on my behalf. I consider this program to be a necessary part of the patient's medical care. Mgean Mcknight [facility] Reason for Visit * Reason Onset Date Comments Referral 09/11/2023 Encounter Details Date Type Department Care Team (Late st Contact Info) Description 09/11/2023 Telephone Pharmacy, [facility] 132 [facility] [place] [address] Megan Mcknight [facility] 21 [facility] [place] [address] Referral Allergies Active Allergy Reactions Criticality Noted Date [...] mg tablet 90 Tablet 3 02/09/2023 Active Pcbqm-9-fajf Ethyl Esters 1 GM Oral CapsuleIndications:D yslipidemia, [...] 80 mg before bedtime. Per hospital discharge [id number]. 0 09/09/2023 Active Warfarin Sodium 3 MG [...] mRNA, LNP-s, No Pre serve, 2-Dose Series ([employer]) 01/19/2021,11/28/2020 COVID-19, MRNA-LNP, 23-24, P F, 30 MCG/0.3 mL, 12 YRS AND ABOVE, IM ([employer]) 07/14/2023 Covid-19 Adenovirus, [place]on 1 Vector, 2-dose Series, PF ([employer]) 08/10/2021 Covid-19, Mrna, Lnp-s, Pf, B ivalent, 30 Mcg, IM, 12 yrs and above ([employer]) 09/06/2022 Pneumococcal Conjugate Vacc, 13 Valent (Prevnar) [...] encounter Miscellaneous Notes * Telephone Encounter - Megan Mcknight RPh - 09/11/2023 1:22 PM EST Patient needs an [facility] referral from a [facility] physician. Sending to Dr. Lind, please place referral, if wish to be followed by [facility]. Referral pended. Meanwhile dosing was given to patient today until referral can be obtained and labs orderf for her via her home nursing as well. Megan Mcknight, Pharm D, BCACP Clinical Pharmacist 09/11/2023, 1:22 PM documented in this encounter Plan of Treatment Upcoming Encounters Date Type Department Care Team (Latest Contact Info) Description 09/11/2023 5:10 PM EST Anticoagulation Pharmacy, [facility] 132 [facility] [place] [address] [facility] 132 [facility] [place] [address] Chronic pain syndrome* 09/13/2023 5:40 PM EST Anticoagulation Pharmacy, [facility] [place] [address] [facility] [place] [address] 10/09/2023 3:30 PM EST Imaging Radiology [address] [place] [address] 10/10/2023 1:00 PM EST Office Visit Pharmacy, [facility] [place] [address] [facility] [address] [place] [address] 11/15/2023 1:00 PM EST Office Visit Gastroenterology, [facility] [place] [address] Cammy Mosqueda CRNP 132 [facility] [place] [address] Scheduled Referrals Name Type Priority Associated Diagnoses Orde r Schedule ANTI-COAGULATION REFERRAL OP Referral Within 3 days (urgent) Acute deep vein thrombosis (DVT) of other vein of lower extremity, unspecified laterality (HCC) Ordered: 09/11/2023 Health Maintenance Due Date Last Done Comments [...] Visit Diagnoses Diagnosis Chronic pain syndrome- Primary Acute deep vein thrombosis (DVT) of other vein of lower extremity, unspecified laterality (HCC)- Primary documented in this encounter Additional Health Concerns Infection Onset Date Last Indicated Resolved Time MRSA 07/14/2023 07/14/2023 documented as of this encounter Care Teams C Engineer Relationship Specialty Start Date End Date Sara Schwarz MD [address] [place] [address] [place] [address] PCP - General Family Medicine 07/13/21 documented as of this encounter
--- OUTSIDE RECORDS SUMMARY | 2024-01-01 23:23 | External Medical Summary | Summary of Care ---
Author Name Unknown Organization [facility] Address [address] [place] [address] Phone [phone] Care Team Providers Care Squaring Machine Operator Name Role Phone Sara Schwarz MD Primary Care Prov ider Reason for Visit * Reason Comments Dosage Adjustment Via Phone (anticoag Cl inic) * Evaluate & Treat - Unlimited Visits (Within 3 days (urgent)) - Pending Review Specialty Diagnoses / Procedures Referred By Contac t Referred To Contact ANTI-COAG CLINIC / Pharmacy Diagnoses Acute deep vein thrombosis (DVT) of other vein of lower extremity, unspecified laterality (HCC) Megan Mcknight, [facility] [place] [address] Referral ID Status Reason Start Date Expiration Date Visits Requested Visits Authorized [id number] Pending Review Specialty Services Required 3 03/09/2024 99 99 Encounter Details Date Type Department Care Team (Latest Contact Info) Description 09/13/2023 5:40 PM EST [facility] 132 [facility] [place] [address] [place], [facility] [place] [address] Acute deep vein thrombosis (DVT) of other [...] mg tablet 90 Tablet 3 02/09/2023 Active Awnjp-4-itgt Ethyl Esters 1 GM Oral CapsuleIndications:Dy slipidemia, [...] 80 mg before bedtime. Per hospital discharge [id number]. 0 09/09/2023 Active Warfarin Sodium 3 MG [...] mRNA, LNP-s, No Pre serve, 2-Dose Series ([employer]) 01/19/2021,11/28/2020 COVID-19, MRNA-LNP, 23-24, P F, 30 MCG/0.3 mL, 12 YRS AND ABOVE, IM ([employer]) 07/14/2023 Covid-19 Adenovirus, Morning View 1 Vector, 2-dose Series, PF ([employer]) 08/10/2021 Covid-19, Mrna, Lnp-s, Pf, B ivalent, 30 Mcg, IM, 12 yrs and above ([employer]) 09/06/2022 Pneumococcal Conjugate Vacc, 13 Valent (Prevnar) [...] this encounter Progress Notes * Megan Mcknight, [facility] - 09/13/2023 12:50 PM EST Medication Therapy Disease Management - Anticoagulation Patient: Eda Lars Estrada | : 1950 Subjective Contacts Type Contact Phone/Fax 09/13/2023 12:21 PM EST Phone (Outgoing) Eda Estrada (Self) [phone] (H) Patient-Reported Symptoms: Patient Findings Negatives: Signs/symptoms of thrombosis, Signs/symptoms of bleeding, Change in health, Change in alcohol use, Change in activity, Upcoming invasive procedure, Missed doses, Extra doses, Change in medications, Change in diet/appetite, Bruising Objective Current Warfarin Dose As of 09/13/2023 Warfarin maintenance plan: No maintenance plan INR Result As of 09/13/2023 INR goal: INR used for dosin.4 (09/13/2023) Assessment & Plan Warfarin Plan As of 09/13/2023 Full warfarin instructions: 09/13: 6 mg; 09/14: 6 mg Next INR check: 09/15/2023 Repeat PT/INR in 2 day(s) Weekly dose: not changed Additional Dosing Information: Description Lovenox 70 mg BID Takes warfarin AM Next PT/INR: 09/15 [facility] Ordering Provider: Dr. Sara Mcknight [facility] Clinical Pharmacist 09/13/2023, 12:50 PM * Christina Cabrera sports editor - 09/13/2023 12:11 PM EST Caller's name: jazmín Preferred call back number(OFFICE NUMBER FOR HH): [phone] Reason for call: nursing facility, [facility], calling with INR results. Result is 1.4 which was drawnon 09.13.23. Patient is not being discharged. Thank you, Christina Cabrera American History Teacher [facility] ([facility]) (Formerly Telepharmacy) 09/13/2023,12:12 PM documented in this encounter Plan of Treatment Upcoming Encounters Date Type Department Care Team (Late st Contact Info) Description 09/15/2023 5:30 PM EST Anticoagulation Pharmacy, [address] [place] [address] [place] [address] 09/19/2023 3:00 PM EST Office Visit Family Medicine [address] [place] [phone] Deedee Campoverde PA-C [address] [place] [address] [place] [address] 10/09/2023 3:30 PM EST Imaging Radiology [address] [place] [address] 10/10/2023 1:00 PM EST Office Visit Pharmacy, [facility] 132 [facility] [place] [address] [facility] [place] [address] 11/15/2023 1:00 PM EST Office Visit Gastroenterology, [facility] [place] [address] Cammy Mosqueda CRNP [facility] [place] [address] Health Maintenance Due Date Last Done Comments [...] Date/Time Associated Diagnosis Comments OUTSIDE LAB-PT/INR Routine 09/13/2023 documented in this encounter Results * OUTSIDE LAB-PT/INR (09/13/2023) INR-OUTSIDE LAB 1.4 09/13/2023 History Per Patient LABORATORY documented in this encounter Visit Diagnoses Diagnosis Acute deep vein thrombosis (DVT) of other vein of lower extremity, unspecified laterality (HCC)- Primary documented in this encounter Care Teams Squaring Machine Operator Relationship Specialty Start Date End Date Sara Schwarz MD [address] [place] [address] [place] [address] PCP - General Family Medicine 07/13/21 documented as of this encounter"
[2024-01-01] MEDS: KETOROLAC TROMETHAMINE 15 MG/ML VIAL IV PRN (23:25)
[2024-01-02] MEDS ORDERED: CHECK fentaNYL PATCH PLACEMENT SCH
[2024-01-02] MEDS: VANCOMYCIN HCL 1,250 MG in SODIUM CHLORIDE 0.9% 250 ML IV SCH (02:22)
[2024-01-02 08:16] LABS: Basophils # (auto) 0.03 K/uL (0.00-0.20); Basophils % (auto) 0.3 %; Eosinophils # (auto) 0.04 K/uL (0.00-0.50); Eosinophils % (auto) 0.4 %; Hematocrit (blood only) 31.1 % (37.0-47.0); Hemoglobin 9.6 g/dl (12.0-16.0); Immature Granulocytes # (auto) 0.05 K/uL (0.01-0.20); Immature Granulocytes % (auto) 0.5 %; Lymphocytes # (auto) 0.96 K/uL (1.20-3.40); Lymphocytes % (auto) 9.9 %; Mean Corpuscular Hemoglobin 23.4 pg (25.0-34.0); Mean Corpuscular Hgb Conc 30.9 g/dL (32.0-36.0); Mean Corpuscular Volume 75.9 fL (80.0-100.0); Mean Platelet Volume 9.1 fL (9.4-12.4); Monocytes # (auto) 0.75 K/uL (0.11-0.59); Monocytes % (auto) 7.7 %; Neutrophils # (auto) 7.91 K/uL (1.40-6.50); Neutrophils % (auto) 81.2 %; Platelet Count 506 K/uL (130-400); RDW Coefficient of Variation 17.6 % (11.5-14.5); RDW Standard Deviation 47.8 fL (36.4-46.3); White Blood Count 9.74 K/ul (4.8-10.8)
[2024-01-02 08:40] LABS: BUN Creatinine Ratio 32.5 (10-20); Calcium 8.1 mg/dl (8.6-10.3); Creatinine Clr Calc Pharmacy 109.8 ml/min; Est GFR (African American) 120.6 ml/min; Est GFR (Non-African American) 104.1 ml/min; Magnesium 1.5 mg/dl (1.7-2.4); Phosphorus 2.3 mg/dl (2.5-4.9); Potassium 3.4 mmol/L (3.5-5.1)
[2024-01-02 08:47] LABS: INR 3.3 (0.9-1.1); Prothrombin Time 33.1 Seconds (9.0-12.0)
[2024-01-02] MEDS: oxyCODONE HCL IR 5 MG TAB (IMMEDIATE RELEASE) PO PRN (08:58)
[2024-01-02] MEDS ORDERED: POTASSIUM PHOS 3 MMOL/1 ML INFUSION IV STA (09:03)
--- NOTE | 2024-01-02 09:29 | Pharmacy Report ---
Pharmacy PK ABX Note - Date of Service January 02, 2024 - Assessment and Plan Assessment 73 year old F receiving empiric vancomycin and ceftriaxone for concern of UTI/SSTI in context of MRSA history. Patient recently discharged from rehab facility a couple of weeks ago. Patient had been declining with noticeable altered mental status on 01/01 prompting ED visit. Pertinent microbiologic data includes: Positive MRSA Nasal Swab, urine culture growing gram-negative bacilli, and blood cultures x2 pending. Patient w/ reported ADR to vancomycin (worsening renal function). Given this, will follow SCr closely and order vanco level tomorrow prior to 4th maintenance dose. Low risk of nephrotoxicity at this time based on [employer] predictions. Patient reportedly w/ recent cancer diagnosis w/ possible metastasis. S/p colostomy, left AKA, and hx of MRSA infection. Day # 2 of antimicrobial therapy. Plan Vancomycin * Loading dose: 1500 mg IV x 1 * Maintenance dose: 1250 mg IV every 12 hours * Regimen is predicted to achieve target AUC/JAX of 400-600 mg/L.hr * Random level ordered for: 01/03/24 Ceftriaxone * 2 g IV q24h - appropriately dosed Pharmacy will continue to follow and will adjust dose/frequency as necessary. Thank you. Pharmacy has transitioned to AUC monitoring for vancomycin. AUC/JAX is the preferred PK/PD target and is associated with decreased risk of nephrotoxicity compared to traditional trough targets.
[2024-01-02] MEDS: MAGNESIUM SULFATE / D5W 1 GM/100 ML BAG IV ONE (10:27)
[2024-01-02] MEDS: POTASSIUM PHOSPHATE 30 MMOL in SODIUM CHLORIDE 0.9% 500 ML IV ONE (10:28)
[2024-01-02] MEDS: amLODIPine BESYLATE 5 MG TAB PO SCH (11:28)
[2024-01-02] MEDS: LOSARTAN POTASSIUM 25 MG TAB PO SCH (11:29)
[2024-01-02] MEDS: LIDOCAINE 5% 1 PATCH TD SCH (11:31)
[2024-01-02] MEDS: cefTRIAXone SODIUM 2,000 MG in DEXTROSE 5 % MINI-B 50 ML IV SCH (13:51)
--- NOTE | 2024-01-02 16:58 | Hospitalist Progress Note ---
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 Pt has a chronic Kevin catheter for unclear reasons. Work-up in the ED appears consistent with UTI. Pt has apparently been diagnosed with new cancer of the bone in her left leg and possibly metastatic to lung but family is unclear on what the diagnosis specifically is or what the care plan/prognosis is. Will need to clarify. 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 Will discuss with the family members about further management with oncologist likely as an outpatient She is to we will to have any inpatient chemo therapy Will get records from [facility]-- Review of outpatient records shows an US from late November showing a complex LLQ anterior abd mass so will check CT abd/pel for better evaluation Prognosis remains poor Palliative care consulted History of DVT Has been on Coumadin with INR 3.3 as of 01/02/2024 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 Hold most of her narcotics and some of her sedating home medications to see if this helps with mental status. Since pt is hemodynamically stable and does have chronic pain, we will hold off on Narcan for now. Monitor mental status with treatment of infection. Will keep pt NPO until mental status improves as concern for aspiration if eati ng while this lethargic. For now, will use scheduled Tylenol for pt's chronic pain with low-dose oxycodone for breakthrough. Received small dose of oxycodone 5 mg this morning with 9 out of 10 pain and the patient became semiresponsive Will hold narcotic pain medications for now because of worsening lethargy and confusion and unresponsiveness (4) History of methicillin resistant staphylococcus aureus (MRSA): Plan: Family reports chronic wounds have been associated with MRSA infection Check wound culture, MRSA nasal swab Continue Vancomycin for now Wound care consult (5) Anemia: Plan: Chronic issue Appears to be around her baseline but no recent labs in Psychiatric (6) PAD (peripheral artery disease): Plan: Was to see vascular surgery for a second opinion as outpatient but not clear that this was ever done Pt is on warfarin due to DVT in Aug 2023 - review of outpatient records shows that INR has been persistently elevated despite warfarin being on hold. Concern for liver dysfunction raised by cheyanne mercer. Continue to hold warfarin for now but check INR daily Plan Pt seen and reviewed with collaborating physician, Dr. Stevenson. Plan of care discussed and as outlined above. Will need to delineate goals and plan of care moving forward but limited information from family and Psychiatric makes this difficult. Continue to try to get her records from [facility]. Code Status: Full code per pt's son DVT Prophylaxis: INR currently 2.9 - has been on chronic warfarin though currently on hold Admission and Anticipated Discharge Date Admission Date: January 01, 2024 Subjective 01/02/2024 The patient was seen and examined in presence of the son in telemetry unit She has been stable this morning and has had her breakfast and ask for more pain medications due to 9 out of 10 pain She was given 5 of oxy and following that she was snoring and was difficult to arouse She opens her eyes but does not talk remains very lethargic Hemodynamically stable with normal saturation Review of Systems Review of Systems: Unobtainable due to cognitive status Physical Exam Physical Exam: Lying in bed without any acute distress Constitutional: + ill appearing and average body habitus Eyes: Closed ENMT: external ear and nose normal, oropharynx normal Neck: trachea midline, no thyromegaly Respiratory: no respiratory distress Auscultation: + diminished lung sounds; no crackles Cardiovascular: Rate/Rhythm: regular rate and regular rhythm; not tachycardic Heart Sounds: normal S1 and normal S2; no murmur Extremities: no edema Below-knee amputation on right Gastrointestinal (Abdomen): Inspection/Auscultation: normal bowel sounds; abdomen not distended Percussion/Palpation: abdomen soft; abdomen nontender Musculoskeletal: No acute arthritis in any of the joint Neurologic: Remains semiconscious. Very lethargic. Opening eyes with commands and trying to communicate. Lymphatic: no cervical or axillary lymphadenopathy Results & Data Results & Data Vital Signs (Past 12 Hours) Vital Signs Temp Pulse Resp BP Pulse Ox O2 Del Method 01/02/24 15:26 36.3 C L 92 H 16 122/75 96 Room Air 01/02/24 11:32 36.4 C L 90 19 126/80 96 Room Air 01/02/24 07:18 36.3 C L 101 H 16 151/81 H 96 Room Air Laboratory Results Short CBC 01/02/24 Range/Units 07:58 WBC 9.74 (4.8-10.8) K/ul Hgb 9.6 L (12.0-16.0) g/dl Hct 31.1 L (37.0-47.0) % Plt Count 506 H (130-400) K/uL BMP 01/02/24 07:58 Sodium 133 L Potassium 3.4 L Chloride 100 Carbon Dioxide 24 BUN 13 Creatinine 0.40 L Glucose 84 Calcium 8.1 L Medications Administered Current Inpatient Medications Amlodipine Besylate (Amlodipine Besylate 5 Mg Tab) 10 mg PO QAM ENRIQUE Stop: 02/01/24 08:59 Last Admin: 01/02/24 11:28 Dose: 10 mg Buspirone HCl (Buspirone 5 Mg Tab) 10 mg PO BID ENRIQUE Stop: 01/31/24 20:59 Last Admin: 01/02/24 11:28 Dose: 10 mg Docusate Sodium (Docusate Sodium 100 Mg Cap) 100 mg PO BID ENRIQUE Stop: 01/31/24 20:59 Last Admin: 01/02/24 11:30 Dose: 100 mg Acetaminophen (Ofirmev) 1,000 mg in 100 mls @ 400 mls/hr IV Q8H [facility] Stop: 01/04/24 16:59 Last Admin: 01/02/24 16:21 Dose: 400 mls/hr Vancomycin HCl 1,250 mg/ (Sodium Chloride) 275 mls @ 200 mls/hr IV Q12H [facility] Stop: 01/04/24 01:59 Last Infusion: 01/02/24 16:16 Dose: Infused Ceftriaxone Sodium 2,000 mg/ (Dextrose) 50 mls @ 100 mls/hr IV Q24H [facility]; Protocol Stop: 01/07/24 14:59 Last Infusion: 01/02/24 16:16 Dose: Infused Ketorolac Tromethamine (Ketorolac Tromethamine 15 Mg/Ml Vial) 15 mg IV Q6H PRN PRN Reason: Pain Stop: 01/06/24 19:22 Last Admin: 01/02/24 16:25 Dose: 15 mg Lidocaine (Lidocaine 5% 1 Patch) 1 patch TD [facility] Stop: 02/01/24 08:59 Last Admin: 01/02/24 11:31 Dose: Not Given Losartan Potassium (Losartan Potassium 25 Mg Tab) 25 mg PO QAM [facility] Stop: 02/01/24 08:59 Last Admin: 01/02/24 11:29 Dose: 25 mg Miscellaneous (Remove Lidoderm Patch) 1 each N/A DAILY@2100 [facility] Stop: 01/31/24 20:59 Last Admin: 01/01/24 23:00 Dose: Not Given Miscellaneous Information (Vancomycin Consult Active) 1 each N/A UD PRN PRN Reason: Consult Stop: 01/31/24 15:25 Oxycodone HCl (Oxycodone Hcl Ir 5 Mg Tab (Immediate Release)) 5 mg PO Q4H PRN PRN Reason: Mod-Sev Pain (Scale 4-10) Stop: 01/15/24 17:33 Last Admin: 01/02/24 08:58 Dose: 5 mg Pregabalin (Pregabalin 150 Mg Cap) 150 mg PO TID [facility] Stop: 01/31/24 20:59 Last Admin: 01/02/24 13:50 Dose: Not Given (1) UTI (urinary tract infection) Urinary tract infection type: catheter-associated UTI Indwelling urinary catheter type: indwelling urethral catheter Encounter type: initial encounter Qualified Code(s): T83.511A - Infection and inflammatory reaction due to indwelling urethral catheter, initial encounter; N39.0 - Urinary tract infection, site not specified (5) Anemia Anemia type: iron deficiency Iron deficiency anemia type: unspecified iron deficiency Qualified Code(s): D50.9 - Iron deficiency anemia, unspecified
--- NOTE | 2024-01-02 19:07 | Palliative Care Consultation ---
Date of Consultation January 02, 2024 Assessment & Plan (1) Altered mental status: (2) Cancer related pain: (3) Weakness generalized: (4) Discussion about advance care planning held with family member: a 20 min telephonic ACP was held with pt son/SDM Timbo and his . They share that they feel she is better today than when admitted. He shares my worry she may not get better given the complexity of her medical issues and we agreed to a time limited trial if abtx therapy. We agreed to reconvene for meeting in person on Monday at 230pm. He is hoping patient may be more awake and alert by then and can participate in discussion. (5) Palliative care by specialist: Provided overview of Palliative Medicine, a subspecialty that provides specialized medical care for people living with a serious illness by offering a focus on quality of life. Palliative Medicine is often conflated with hospice: I advised patient/family that Palliative and hospice can be partners but we are not the same. It is important to understand the difference so that we may be informed, and not afraid. Palliative Medicine works to improve QOL through reduction of symptom burden/more control over their illness, for both the patient and family. Palliative medicine clinicians are board certified, speci ally-trained and another member of the patient's medical care team. We often provide an extra layer of support because our care is based on the needs of the patient, not the prognosis; as such, it's appropriate at any age/advancing stage of a serious illness and can be provided along with curative treatment. Palliative Medicine clinicians are also trained in advanced communication methodologies, to facilitate complex discussions about advanced illness planning, which are needed to help assure that the treatment choices match the patient's goals, aka delivering Goal Concordant care. Finally, we discussed that hospice is a visiting nurse service that focuses on care delivered at the very end of life for patients with terminal illness, with life expectancy less than 6 month. (6) History of lymphosarcoma: (7) Liposarcoma of left lower extremity: (8) Metabolic encephalopathy: Plan * ACP as noted above * Patient does not presently have capacity for decision making * [facility] Monday 230pm, confirmed with son Timbo who will update additional family members. Thank you for allowing us to participate in the ongoing care of this patient. Please don't hesitate to call or page with any additional concerns. Dr. Noelle Nava DNP Director, Palliative Care History of Present Illness Reason for Consultation: [facility] Attending Physician: Berna Gloria MD History of Present Illness 73yo female admitted with AMS PMH, PSH, surgical hx, social and MAR reviewed complex medically she is lethargic and unresponsive to me this afternoon and no family is present Allergies Allergy/AdvReac Type Severity Reaction Status Date / Time vancomycin AdvReac Severe WORSENING Verified 10/11/23 13:05 RENAL FUNCTION cetirizine AdvReac Intermediate BOWEL Verified 10/11/23 13:05 CRAMPS gabapentin [From Neurontin] AdvReac Unknown DID NOT Verified 10/11/23 13:05 WORK FOR PAIN Home Medications Medication Instructions Recorded Confirmed Type atorvastatin 20 mg tablet 20 mg PO HS 05/21/19 01/01/24 History buspirone 10 mg tablet 10 mg PO BID 06/19/20 01/01/24 History tizanidine 4 mg tablet (Zanaflex) 2 - 4 mg PO HS PRN Muscle Spasm 06/19/20 01/01/24 History docusate sodium 100 mg capsule 100 mg PO BID 12/31/21 01/01/24 History (Colace) alendronate 70 mg tablet 70 mg PO WK 07/21/23 01/01/24 History losartan 25 mg tablet 25 mg PO QAM 07/21/23 01/01/24 History pregabalin 150 mg capsule 150 mg PO TID 07/21/23 01/01/24 History amitriptyline 50 mg tablet 50 mg PO HS 01/01/24 01/01/24 History amlodipine 10 mg tablet 10 mg PO QAM 01/01/24 01/01/24 History fentanyl 50 mcg/hr transdermal 1 patch transdermal Q72H 01/01/24 01/01/24 History patch hydrocodone 5 mg-acetaminophen 325 1 tab PO BID PRN Mild Pain (Scale 01/01/24 01/01/24 History mg tablet Score 1-4) morphine 10 mg/5 mL oral solution See Rx Instructions .Route .COMPLEX 01/01/24 01/01/24 History naloxone 4 mg/actuation nasal spray 1 spray intranasal UD PRN - 01/01/24 01/01/24 History warfarin 1 mg tablet 1 mg PO DAILY 01/01/24 01/01/24 History Patient History Medical History (Updated 01/02/24 @ 18:59 by Noelle Nava DNP) Cancer related pain Palliative care by specialist Discussion about advance care planning held with family member Weakness generalized Altered mental status Anemia Superior mesenteric artery stenosis Weakness Near syncope Pre-syncope Osteoarthritis Presence of pessary Hearing deficit BL FABIAN Hyperlipidemia Bile duct stone Hx of sarcoma of bone LLE; h/o surgery, radiation treatment 1989 History of anxiety Hypertension PAD (peripheral artery disease) PFO (patent foramen ovale) Surgical History History of cholecystectomy lap [place]: 07/20/20: Grade view 3, MAC#3.0, ETT 7.0 at [facility] History of ERCP History of elbow surgery Left History of carpal tunnel release Right 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) History of lumbar surgery x2 History of cancer surgery LLE History of colonoscopy History of ankle surgery Left History of section X 1 History of tonsillectomy and adenoidectomy History of hip surgery x 2 - Left Family History Mother Anxiety Cardiac disorder Father Cardiac disorder Myocardial infarction Hypertension Grandmother (Maternal) Diabetes Other No family history of adverse response to anesthesia Social History Smoking Status: Never smoker Second Hand Exposure: No; Do You Dip or Chew Tobacco: No; Hx Alcohol Use: No Hx Substance Use: No Preferred Language: Mohawk Communication Ability: Impaired Pododermatologist Required: No Beliefs That Will Affect Care: None marital status: Current Living Situation: Family Current Living Situation Comment: Erik () and Taya (daughter) Other Information That Helps Us Care for You: No Feels Safe at Home: Yes Safety Concerns: Feels Safe At This Time Assistive Devices: Bedside Commode, Hospital Bed and Wheelchair Review of Systems Review of Systems: Unobtainable due to cognitive status and Unobtainable due to reduced consciousness Physical Exam Constitutional: + ill appearing, + thin, + frail appeari ng and + lethargic Eyes: PERRL ENMT: dentition fair, mm dry Neck: no stridor Respiratory: mild inc effort with use of accessory muscles diminished bilat no wheeze, faint crackles Cardiovascular: s1s2 Gastrointestinal (Abdomen): scaphoid, NTP, BS diminished Musculoskeletal: Left BKA, +wound dressing RLE pale, warm, venous insuff changes with heel wound noted Skin: pale Neurologic: lethargic and somnolent, unable to follow commands Results & Data Vital Signs (Past 12 Hours) Vital Signs Temp Pulse Resp BP Pulse Ox O2 Del Method 01/02/24 15:26 36.3 C L 92 H 16 122/75 96 Room Air 01/02/24 11:32 36.4 C L 90 19 126/80 96 Room Air 01/02/24 07:18 36.3 C L 101 H 16 151/81 H 96 Room Air Laboratory Results 01/02/24 01/02/24 01/01/24 Range/Units 11:28 07:58 Unknown WBC 9.74 (4.8-10.8) K/ul RBC 4.10 L (4.20-5.40) M/uL Hgb 9.6 L (12.0-16.0) g/dl Hct 31.1 L (37.0-47.0) % MCV 75.9 L (80.0-100.0) fL MCH 23.4 L (25.0-34.0) pg MCHC 30.9 L (32.0-36.0) g/dL RDW Std Deviation 47.8 H (36.4-46.3) fL RDW Coeff of Leslie 17.6 H (11.5-14.5) % Plt Count 506 H (130-400) K/uL MPV 9.1 L (9.4-12.4) fL Immature Gran % (Auto) 0.5 % Neut % (Auto) 81.2 % Lymph % (Auto) 9.9 % Brule % (Auto) 7.7 % Eos % (Auto) 0.4 % Baso % (Auto) 0.3 % Neut # (Auto) 7.91 H (1.40-6.50) K/uL Lymph # (Auto) 0.96 L (1.20-3.40) K/uL Brule # (Auto) 0.75 H (0.11-0.59) K/uL Eos # (Auto) 0.04 (0.00-0.50) K/uL Baso # (Auto) 0.03 (0.00-0.20) K/uL Immature Gran # (Auto) 0.05 (0.01-0.20) K/uL PT 33.1 H (9.0-12.0) Seconds INR 3.3 H (0.9-1.1) Sodium 133 L (136-145) mmol/L Potassium 3.4 L (3.5-5.1) mmol/L Chloride 100 (98-107) mmol/L Carbon Dioxide 24 (21-32) mmol/L Anion Gap 9 (3-11) BUN 13 (6-23) mg/dl Creatinine 0.40 L (0.6-1.2) mg/dl Est Cr Clr Drug Dosing 109.8 ml/min Est GFR ( Amer) 120.6 ml/min Est GFR (Non-Af Amer) 104.1 ml/min BUN/Creatinine Ratio 32.5 H (10-20) Glucose 84 (70-99(Fasting)) mg/dl POC Glucose 105 H (70-99) mg/dl Lactate (0.4-2.0) mmol/L Calcium 8.1 L (8.6-10.3) mg/dl Phosphorus 2.3 L (2.5-4.9) mg/dl Magnesium 1.5 L (1.7-2.4) mg/dl Total Bilirubin (0.2-1.0) mg/dl Direct Bilirubin (0-0.2) mg/dl AST (13-39) U/L ALT (7-52) U/L Alkaline Phosphatase (34-104) U/L Troponin I High Sens (0-14) pg/ml Total Protein (6.0-8.3) gm/dl Albumin (3.4-5.0) gm/dl Procalcitonin (0-0.5) ng/ml Urine Color Urine Appearance (Clear) Urine pH (4.5-7.5) Ur Specific [place] (1.000-1.030) Urine Protein (Negative) Urine Glucose (UA) (Negative) Urine Ketones (Negative) Urine Blood (Negative) Urine Nitrite (Negative) Urine Bilirubin (Negative) Urine Urobilinogen (Negative) Ur Leukocyte Esterase (Negative) Urine RBC (0-2) /hpf Urine WBC (0-5) /hpf Ur Epithelial Cells (0-2) /hpf Urine Bacteria (None Seen) Nasal Screen MRSA (PCR) Positive A (Negative) 01/01/24 01/01/24 Range/Units 13:59 13:54 WBC 11.78 H (4.8-10.8) K/ul RBC 4.57 (4.20-5.40) M/uL Hgb 10.6 L (12.0-16.0) g/dl Hct 34.5 L (37.0-47.0) % MCV 75.5 L (80.0-100.0) fL MCH 23.2 L (25.0-34.0) pg MCHC 30.7 L (32.0-36.0) g/dL RDW Std Deviation 47.6 H (36.4-46.3) fL RDW Coeff of Leslie 17.4 H (11.5-14.5) % Plt Count 522 H (130-400) K/uL MPV 9.2 L (9.4-12.4) fL Immature Gran % (Auto) 0.8 % Neut % (Auto) 89.3 % Lymph % (Auto) 4.8 % Brule % (Auto) 4.8 % Eos % (Auto) 0.1 % Baso % (Auto) 0.2 % Neut # (Auto) 10.51 H (1.40-6.50) K/uL Lymph # (Auto) 0.57 L (1.20-3.40) K/uL Brule # (Auto) 0.57 (0.11-0.59) K/uL Eos # (Auto) 0.01 (0.00-0.50) K/uL Baso # (Auto) 0.02 (0.00-0.20) K/uL Immature Gran # (Auto) 0.10 (0.01-0.20) K/uL PT 29.6 H (9.0-12.0) Seconds INR 2.9 H (0.9-1.1) Sodium 130 L (136-145) mmol/L Potassium 3.4 L (3.5-5.1) mmol/L Chloride 91 L (98-107) mmol/L Carbon Dioxide 24 (21-32) mmol/L Anion Gap 15 H (3-11) BUN 16 (6-23) mg/dl Creatinine 0.52 L (0.6-1.2) mg/dl Est Cr Clr Drug Dosing 93.2 ml/min Est GFR ( Amer) 110.6 ml/min Est GFR (Non-Af Amer) 95.5 ml/min BUN/Creatinine Ratio 30.8 H (10-20) Glucose 125 H (70-99(Fasting)) mg/dl POC Glucose (70-99) mg/dl Lactate 1.5 (0.4-2.0) mmol/L Calcium 8.6 (8.6-10.3) mg/dl Phosphorus (2.5-4.9) mg/dl Magnesium 1.7 (1.7-2.4) mg/dl Total Bilirubin 0.4 (0.2-1.0) mg/dl Direct Bilirubin 0.1 (0-0.2) mg/dl AST 26 (13-39) U/L ALT 14 (7-52) U/L Alkaline Phosphatase 297 H (34-104) U/L Troponin I High Sens 12.1 (0-14) pg/ml Total Protein 7.3 (6.0-8.3) gm/dl Albumin 3.1 L (3.4-5.0) gm/dl Procalcitonin 1.09 H (0-0.5) ng/ml Urine Color Brittnee Urine Appearance Cloudy A (Clear) Urine pH 7.5 (4.5-7.5) Ur Specific [place] 1.025 (1.000-1.030) Urine Protein 3+ H (Negative) Urine Glucose (UA) Negative (Negative) Urine Ketones 1+ H (Negative) Urine Blood 3+ H (Negative) Urine Nitrite Positive A (Negative) Urine Bilirubin Negative (Negative) Urine Urobilinogen Negative (Negative) Ur Leukocyte Esterase 3+ H (Negative) Urine RBC 6-10 H (0-2) /hpf Urine WBC >50 H (0-5) /hpf Ur Epithelial Cells 3-5 H (0-2) /hpf Urine Bacteria 1+ H (None Seen) Nasal Screen MRSA (PCR) (Negative) Diagnostic Findings Chest X-Ray 01/01/24 14:08 XR chest 1V portable HISTORY: 73 years-old Female Sepsis COMPARISON: 01/10/2022 TECHNIQUE: AP view of the chest FINDINGS: Cardiomediastinal and hilar silhouettes are within normal limits. No pneumothorax, pleural effusion or airspace consolidation. No overt pulmonary edema. Cholecystectomy. Lumbar spinal fusion hardware. Degenerative changes of the shoulders and spine. IMPRESSION: No acute process. ACT 112: Negative or not required by law. The above report was generated using voice recognition software. It may contain grammatical, syntax or spelling errors. Electronically signed by: Michael Kilpatrick M.D. 01/01/2024 3:[address] 01/01/24 14:[address] DOSE: 625.8 mGy.cm HISTORY: Altered mental status. TECHNIQUE: Multiaxial CT images of the head were performed without the use of intravenous contrast. Automated exposure control was utilized for this study. A dose lowering technique was utilized adhering to the principles of ALARA. Comparison: None. Findings: The paranasal sinuses and mastoid air cells are clear. The calvarium and skull base are intact. There is no mass, hematoma, midline shift, acute infarct. White matter hypodensity is nonspecific but suggestive of microvascular ischemic change. The ventricles and sulci demonstrate mild age-related involutional changes. Impression: No acute intracranial abnormality. ACT 112: Negative or not required by law. Electronically signed by: Akash Gross M.D. 01/01/2024 2:57 PM Abdomen/Pelvis CT 01/01/24 17:[address] WITH IV CONTRAST CT DOSE: 1180.16 mGy.cm HISTORY: Acute left lower quadrant abdominal pain . Prior left-sided colonic resection with right lower quadrant ostomy. LLQ anterior abd complex lesion US 12/21 TECHNIQUE: Multiaxial CT images of the abdomen and pelvis were performed following the IV administration of 92 cc of Optiray, A dose lowering technique was utilized adhering to the principles of ALARA. COMPARISON STUDY: CT abdomen and pelvis 12/31/2021, femur radiographs 07/21/2023, 03/03/2021, CT left hip 10/29/2020 FINDINGS: Cardiomegaly with coronary arterial calcifications. Mild dependent subsegmental bibasilar atelectasis. Right hemidiaphragmatic elevation. No free air identified. Unremarkable spleen, pancreas and adrenal glands. Cholecystectomy with likely postsurgical pneumobilia. The liver is otherwise unremarkable. There is patency of the hepatic and portal veins. Cortical scarring of the superior to mid pole right kidney. Bilateral nonobstructing renal calculi measuring up to 12 mm on the right. 1.5 cm calculus in the dependent left renal pelvis. There is layering debris versus calcifications within the dependent right renal pelvis. There is mild left-sided hydroureteronephrosis with urothelial thickening, likely secondary to distal obstruction secondary to a large pelvic mass as below. Atherosclerosis of the aorta. Expansile thrombus is noted within the infrarenal IVC and also within the bilateral common iliac veins. There is also thrombus in the left internal and external iliac veins and also possibly within the left femoral vein. 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 No definite lymphadenopathy. Urinary bladder wall thickening with Kevin catheter. Air is also present within the urinary bladder lumen. Circumferential wall thickening of the rectosigmoid. Additional wall thickening of the cecum. There is a large cystic mass centered within the left hemipelvis encasing the left iliac bone and sacrum with involvement of the left psoas, iliopsoas, iliacus, gluteal, obturator internus and proximal thigh musculature. The mass contains marginal calcifications and overall measures approximately 15 x 15 x 21 cm. 3.27 m subcutaneous nodules in the left anterior abdominal wall. Areas of loculated fluid versus hypodense mesenteric nodules noted within the abdominal flow or quadrant. The mass extends into the left lateral abdominal wall. Lucent/osteolytic bony destruction is noted within portions of the left sacrum and iliac bone. Heterogeneous sclerotic appearance of the left hemipelvis and left proximal femur is a chronic finding. Chronic left proximal femoral fixated fracture deformity. Postoperative changes of the lumbar spine. Prior left-sided colonic resection with right lower quadrant ostomy and bowel- containing parastomal hernia redemonstrated. Additionally, there is a periumbilical hernia with diastases of 7.8 cm containing mesenteric fat and nonobstructed bowel. IMPRESSION: 1. There is a large mixed cystic and solid and partially calcified mass within the left hemipelvis as above encasing the left pelvic musculature and left hemipelvis with osseous lytic erosion of the sacrum and left iliac bone overall measuring up to approximately 21 cm. An indeterminate malignancy would be the differential of exclusion. Follow-up with oncology is needed. 2. Bilateral nephrolithiasis with calculi within the bilateral renal pelves. Mild left-sided hydroureteronephrosis with urothelial thickening is likely secondary to distal ureteral obstruction from the large pelvic mass. 3. No bowel obstruction. 4. Prior left-sided colonic resection with right lower quadrant ostomy and peristomal hernia redemonstrated. 5. 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 6. Additional findings as above. ACT 112: Negative or not required by law. The above report was generated using voice recognition software. It may contain grammatical, syntax or spelling errors. Electronically signed by: Michael Kilpatrick M.D. 01/01/2024 6:47 PM PG Care Time/CCT Total # of Minutes Spent Total Time Spent with Patient: Total time spent is greater than 50%in coordination of care (as documented) at patient's floor/unit and/or counseling patient: I spent 75 minutes overall addressing this case: 15 min in medical data review/discussion with referring provider(s) and/or preparation for the visit 20 min in direct interaction with the patient/exam 20 min in Advance Care Planning/Goals of Care discussions as detailed above in note (must be >16min) 10 min in subsequent review and synthesis of assessment and plan 10 min communicating with other providers regarding the patient's case: Advanced Care Planning 77642 Advanced Care Planning 30 [place] [address] IN/OBS CONSULT LVL 4,60M Patient Type New History Comprehensive Exam Comprehensive Medical Decision Making High Complexity Diagnoses Altered mental status R41.82 Cancer related pain G89.3 Weakness generalized R53.1 Discussion about advance care planning held with family member Z71.0 Palliative care by specialist Z51.5 History of lymphosarcoma Z85.79 Liposarcoma of left lower extremity C49.22 Metabolic encephalopathy G93.41 Additional Codes Advanced Care Planning - 15117 Advanced Care Planning 30 Min: 91706 Advanced Care Planning 30 Min ([id number])
[2024-01-03 06:21] LABS: Basophils # (auto) 0.02 K/uL (0.00-0.20); Basophils % (auto) 0.3 %; Eosinophils # (auto) 0.07 K/uL (0.00-0.50); Eosinophils % (auto) 0.9 %; Hematocrit (blood only) 27.7 % (37.0-47.0); Hemoglobin 8.3 g/dl (12.0-16.0); Immature Granulocytes # (auto) 0.05 K/uL (0.01-0.20); Immature Granulocytes % (auto) 0.6 %; Lymphocytes # (auto) 1.37 K/uL (1.20-3.40); Lymphocytes % (auto) 17.8 %; Mean Corpuscular Hemoglobin 23.4 pg (25.0-34.0); Mean Corpuscular Volume 78.2 fL (80.0-100.0); Mean Platelet Volume 8.8 fL (9.4-12.4); Monocytes # (auto) 0.68 K/uL (0.11-0.59); Monocytes % (auto) 8.8 %; Neutrophils # (auto) 5.51 K/uL (1.40-6.50); Neutrophils % (auto) 71.6 %; Platelet Count 436 K/uL (130-400); RDW Coefficient of Variation 17.8 % (11.5-14.5); RDW Standard Deviation 50.8 fL (36.4-46.3); Red Blood Count 3.54 M/uL (4.20-5.40)
[2024-01-03 06:23] LABS: Albumin Globulin Ratio 0.8 (0.9-2); Albumin Level 2.5 gm/dl (3.4-5.0); BUN Creatinine Ratio 36.4 (10-20); Bilirubin,Total 0.2 mg/dl (0.2-1.0); Calcium 7.5 mg/dl (8.6-10.3); Creatinine Clr Calc Pharmacy 133.1 ml/min; Est GFR (African American) 128.5 ml/min; Est GFR (Non-African American) 110.9 ml/min; Globulin 3.1 gm/dl (2.5-4.0); Magnesium 1.8 mg/dl (1.7-2.4); Phosphorus 1.9 mg/dl (2.5-4.9); Potassium 3.7 mmol/L (3.5-5.1); Total Protein 5.6 gm/dl (6.0-8.3)
[2024-01-03 06:37] LABS: INR 3.2 (0.9-1.1); Prothrombin Time 32.1 Seconds (9.0-12.0)
--- NOTE | 2024-01-03 07:07 | Electrocardiogram Report ---
Test Reason : Blood Pressure : / mmHG Vent. Rate : 111 BPM Atrial Rate : 111 BPM P-R Int : 170 ms QRS Dur : 102 ms QT Int : 304 ms P-R-T Axes : 048 029 228 degrees QTc Int : 413 ms Sinus tachycardia Possible Left atrial enlargement Abnormal ECG When compared with ECG of 05-SEP-2023 18:13, T wave inversion now evident in Anterior leads Confirmed by Vinicio Pérez ([id number]) on 01/03/2024 7:06:55 AM Referred By: Confirmed By:Vinicio Pérez
[2024-01-03] MEDS ORDERED: POTASSIUM PHOS 3 MMOL/1 ML INFUSION IV STA ×2 (08:23→13:56)
[2024-01-03] MEDS: POTASSIUM PHOSPHATE 24 MMOL in SODIUM CHLORIDE 0.9% 500 ML IV ONE (09:23)
--- NOTE | 2024-01-03 12:52 | Pharmacy Report ---
Pharmacy PK ABX Note - Date of Service January 03, 2024 - Assessment and Plan Assessment 73 year old F receiving empiric vancomycin and ceftriaxone for concern of UTI/SSTI in context of MRSA history. Patient recently discharged from rehab facility a couple of weeks ago. Patient had been declining with noticeable altered mental status on 01/01 prompting ED visit. Pertinent microbiologic data includes: Positive MRSA Nasal Swab, urine culture growing prater-sensitive Serratia marcescens, and blood cultures x2 show no growth at 24 hours. Patient w/ reported ADR to vancomycin (worsening renal function). Given this, will follow SCr closely and order vanco level tomorrow prior to 4th maintenance dose. Low risk of nephrotoxicity at this time based on [employer] predictions. Patient reportedly w/ recent cancer diagnosis w/ possible metastasis. S/p colostomy, left AKA, and hx of MRSA infection. Day # 3 of antimicrobial therapy. Plan Vancomycin * Current regimen: 1250 mg IV every 12 hours * Random level obtained 01/03/24 resulted as 16.6 mcg/mL. This is predicted to achieve target AUC/JAX of 400-600 mg/L.hr * Predicted AUC at steady state: 492 mg/L.hr * Continue 1250 mg IV every 12 hours * Will repeat level in the next 48-72 hours if therapy is continued and/or change in patient clinical status Ceftriaxone * 2 g IV q24h - appropriately dosed Pharmacy will continue to follow and will adjust dose/frequency as necessary. Thank you. Pharmacy has transitioned to AUC monitoring for vancomycin. AUC/JAX is the preferred PK/PD target and is associated with decreased risk of nephrotoxicity compared to traditional trough targets.
--- NOTE | 2024-01-03 13:55 | Hospitalist Progress Note ---
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 Pt has a chronic Kevin catheter for unclear reasons. Work-up in the ED appears consistent with UTI. Pt has apparently been diagnosed with new cancer of the bone in her left leg and possibly metastatic to lung but family is unclear on what the diagnosis specifically is or what the care plan/prognosis is. Will need to clarify. Catheter induced UTI with sepsis on admission Urine cultures growing gram-negative bacilli and blood cultures remains negative so far Started on intravenous ceftriaxone and vancomycin Will continue both with MRSA screen positive Blood cultures are negative Urine culture is growing Serratia marcescens which is pansensitive Clinically much better today and remains alert, awake and oriented x 3 Will continue IV ceftriaxone and vancomycin for now and likely to discontinue vancomycin from tomorrow Severe electrolyte imbalance Secondary to sepsis and poor intake Electrolytes are improving with phosphate level remains minimally low at 1.9 Will replace intravenous phosphate today and monitor (2) History of lymphosarcoma: Plan: 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 Will discuss with the family members about further management with oncologist mesfin becker as an outpatient She is to we will to have any inpatient chemo therapy Will get records from [facility]-- Review of outpatient records shows an US from late November showing a complex LLQ anterior abd mass so will check CT abd/pel for better evaluation Prognosis remains poor Palliative care consulted-palliative will have a meeting with the family members on [place] History of DVT Has been on Coumadin with INR 3.3 as of 01/02/2024 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 Hold most of her narcotics and some of her sedating home medications to see if this helps with mental status. Since pt is hemodynamically stable and does have chronic pain, we will hold off on Narcan for now. Monitor mental status with treatment of infection. Will keep pt NPO until mental status improves as concern for aspiration if eating while this lethargic. For now, will use scheduled Tylenol for pt's chronic pain with low-dose oxycodone for breakthrough. Received small dose of oxycodone 5 mg this morning with 9 out of 10 pain and the patient became semiresponsive Will hold narcotic pain medications for now because of worsening lethargy and confusion and unresponsiveness Will not give any oxycodone-Ultram seems to be doing fine Metabolic and cephalopathy is cleared (4) History of methicillin resistant staphylococcus aureus (MRSA): Plan: Family reports chronic wounds have been associated with MRSA infection Check wound culture, MRSA nasal swab Continue Vancomycin for now Wound care consult (5) Anemia: Plan: Chronic issue Appears to be around her baseline but no recent labs in [facility] (6) PAD (peripheral artery disease): Plan: Was to see vascular surgery for a second opinion as outpatient but not clear that this was ever done Pt is on warfarin due to DVT in Aug 2023 - review of outpatient records shows that INR has been persistently elevated despite warfarin being on hold. Concern for liver dysfunction raised by cheyanne mercer. Continue to hold warfarin for now but check INR daily Plan Pt seen and reviewed with collaborating physician, Dr. Stevenson. Plan of care discussed and as outlined above. Will need to delineate goals and plan of care moving forward but limited information from family and [facility] makes this difficult. Continue to try to get her records from [facility]. Code Status: Full code per pt's son DVT Prophylaxis: INR currently 2.9 - has been on chronic warfarin though currently on hold Admission and Anticipated Discharge Date Admission Date: January 01, 2024 Subjective 01/02/2024 The patient was seen and examined in presence of the son in telemetry unit She has been stable this morning and has had her breakfast and ask for more pain medications due to 9 out of 10 pain She was given 5 of oxy and following that she was snoring and was difficult to arouse She opens her eyes but does not talk remains very lethargic Hemodynamically stable with normal saturation 01/03/2024 The patient was seen and examined in telemetry unit She has been much better today Communicating normally and not in any acute distress Remains hemodynamically stable without any fever and or chills Remains generally weak and free of any pain Review of Systems Review of Systems: All systems reviewed and are unremarkable except as noted below Physical Exam Physical Exam: Lying in bed without any acute distress Constitutional: + ill appearing and average body habitus Eyes: PERRL, conjunctivae normal, anicteric sclerae ENMT: external ear and nose normal, oropharynx normal Neck: trachea midline, no thyromegaly Respiratory: no respiratory distress Auscultation: + diminished lung sounds; no crackles Cardiovascular: Rate/Rhythm: regular rate and regular rhythm; not tachycardic Heart Sounds: normal S1 and normal S2; no murmur Extremities: no edema Gastrointestinal (Abdomen): Inspection/Auscultation: normal bowel sounds; abdomen not distended Percussion/Palpation: abdomen soft; abdomen nontender Musculoskeletal: No acute arthritis involving any of the joint, left AKA Neurologic: Alert, awake and oriented x 3. Moves all extremities but has left AKA. Lymphatic: no cervical or axillary lymphadenopathy Results & Data Results & Data Vital Signs (Past 12 Hours) Vital Signs Temp Pulse Resp BP Pulse Ox O2 Del Method 01/03/24 11:48 36.8 C 85 16 102/67 96 Room Air 01/03/24 07:16 36.9 C 90 17 129/74 95 Room Air 01/03/24 03:50 36.3 C L 87 18 122/72 95 Room Air Laboratory Results Short CBC 01/03/24 Range/Units 05:39 WBC 7.70 (4.8-10.8) K/ul Hgb 8.3 L (12.0-16.0) g/dl Hct 27.7 L (37.0-47.0) % Plt Count 436 H (130-400) K/uL BMP 01/03/24 05:39 Sodium 135 L Potassium 3.7 Chloride 103 Carbon Dioxide 24 BUN 12 Creatinine 0.33 L Glucose 58 L Calcium 7.5 L Liver Function 01/03/24 Range/Units 05:39 Total Bilirubin 0.2 (0.2-1.0) mg/dl AST 20 (13-39) U/L ALT 10 (7-52) U/L Alkaline Phosphatase 254 H (34-104) U/L Albumin 2.5 L (3.4-5.0) gm/dl Medications Administered Current Inpatient Medications Amlodipine Besylate (Amlodipine Besylate 5 Mg Tab) 10 mg PO QAM [facility] Stop: 02/01/24 08:59 Last Admin: 01/03/24 08:03 Dose: 10 mg Buspirone HCl (Buspirone 5 Mg Tab) 10 mg PO BID [facility] Stop: 01/31/24 20:59 Last Admin: 01/03/24 08:03 Dose: 10 mg Docusate Sodium (Docusate Sodium 100 Mg Cap) 100 mg PO BID [facility] Stop: 01/31/24 20:59 Last Admin: 01/03/24 08:07 Dose: 100 mg Acetaminophen (Ofirmev) 1,000 mg in 100 mls @ 400 mls/hr IV Q8H [facility] Stop: 01/04/24 16:59 Last Infusion: 01/03/24 09:23 Dose: Infused Vancomycin HCl 1,250 mg/ (Sodium Chloride) 275 mls @ 200 mls/hr IV Q12H [facility] Stop: 01/04/24 23:59 Last Infusion: 01/03/24 04:20 Dose: Infused Ceftriaxone Sodium 2,000 mg/ (Dextrose) 50 mls @ 100 mls/hr IV Q24H [facility]; Protocol Stop: 01/07/24 14:59 Last Infusion: 01/02/24 16:16 Dose: Infused Potassium Phosphate 24 mmol/ (Sodium Chloride) 508 mls @ 88 mls/hr IV ONE ONE Stop: 01/03/24 14:16 Last Admin: 01/03/24 09:23 Dose: 88 mls/hr Ketorolac Tromethamine (Ketorolac Tromethamine 15 Mg/Ml Vial) 15 mg IV Q6H PRN PRN Reason: Pain Stop: 01/06/24 19:22 Last Admin: 01/03/24 08:02 Dose: 15 mg Lidocaine (Lidocaine 5% 1 Patch) 1 patch TD QAM [facility] Stop: 02/01/24 08:59 Last Admin: 01/03/24 08:03 Dose: 1 patch Losartan Potassium (Losartan Potassium 25 Mg Tab) 25 mg PO QAM [facility] Stop: 02/01/24 08:59 Last Admin: 01/03/24 08:03 Dose: 25 mg Miscellaneous (Remove Lidoderm Patch) 1 each N/A DAILY@2100 [facility] Stop: 01/31/24 20:59 Last Admin: 01/02/24 20:32 Dose: Not Given Miscellaneous Information (Vancomycin Consult Active) 1 each N/A UD PRN PRN Reason: Consult Stop: 01/31/24 15:25 Oxycodone HCl (Oxycodone Hcl Ir 5 Mg Tab (Immediate Release)) 5 mg PO Q4H PRN PRN Reason: Mod-Sev Pain (Scale 4-10) Stop: 01/15/24 17:33 Last Admin: 01/02/24 08:58 Dose: 5 mg Pregabalin (Pregabalin 150 Mg Cap) 150 mg PO TID [facility] Stop: 01/31/24 20:59 Last Admin: 01/03/24 08:02 Dose: 150 mg (1) UTI (urinary tract infection) Urinary tract infection type: catheter-associated UTI Indwelling urinary catheter type: indwelling urethral catheter Encounter type: initial encounter Qualified Code(s): T83.511A - Infection and inflammatory reaction due to indwelling urethral catheter, initial encounter; N39.0 - Urinary tract infection, site not specified (5) Anemia Anemia type: iron deficiency Iron deficiency anemia type: unspecified iron deficiency Qualified Code(s): D50.9 - Iron deficiency anemia, unspecified
[2024-01-04 06:28] LABS: Basophils # (auto) 0.03 K/uL (0.00-0.20); Basophils % (auto) 0.4 %; Eosinophils # (auto) 0.12 K/uL (0.00-0.50); Eosinophils % (auto) 1.5 %; Hematocrit (blood only) 27.8 % (37.0-47.0); Hemoglobin 8.5 g/dl (12.0-16.0); Immature Granulocytes # (auto) 0.05 K/uL (0.01-0.20); Immature Granulocytes % (auto) 0.6 %; Lymphocytes # (auto) 1.92 K/uL (1.20-3.40); Lymphocytes % (auto) 24.3 %; Mean Corpuscular Hemoglobin 23.7 pg (25.0-34.0); Mean Corpuscular Hgb Conc 30.6 g/dL (32.0-36.0); Mean Corpuscular Volume 77.4 fL (80.0-100.0); Mean Platelet Volume 9.1 fL (9.4-12.4); Monocytes # (auto) 0.83 K/uL (0.11-0.59); Monocytes % (auto) 10.5 %; Neutrophils # (auto) 4.95 K/uL (1.40-6.50); Neutrophils % (auto) 62.7 %; Platelet Count 493 K/uL (130-400); RDW Coefficient of Variation 18.3 % (11.5-14.5); RDW Standard Deviation 51.2 fL (36.4-46.3); Red Blood Count 3.59 M/uL (4.20-5.40)
[2024-01-04 06:50] LABS: BUN Creatinine Ratio 31.6 (10-20); Calcium 7.5 mg/dl (8.6-10.3); Creatinine Clr Calc Pharmacy 125.9 ml/min; Est GFR (African American) 122.7 ml/min; Est GFR (Non-African American) 105.8 ml/min
[2024-01-04 06:51] LABS: INR 1.5 (0.9-1.1); Prothrombin Time 15.9 Seconds (9.0-12.0)
[2024-01-04 06:52] LABS: Phosphorus 1.2 mg/dl (2.5-4.9)
[2024-01-04] MEDS ORDERED: SODIUM PHOSPHATE 3 MMOL/1 ML INFUSION IV STA (06:54)
[2024-01-04] MEDS: SODIUM PHOSPHATE 3 MMOL/1 ML 5 ML VIAL IV STA (08:21)
[2024-01-04] MEDS: SODIUM PHOSPHATE 30 MMOL in SODIUM CHLORIDE 0.9% 500 ML IV ONE (09:17)
--- NOTE | 2024-01-04 16:21 | Hospitalist Progress Note ---
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 Pt has a chronic Kevin catheter for unclear reasons. Work-up in the ED appears consistent with UTI. Pt has apparently been diagnosed with new cancer of the bone in her left leg and possibly metastatic to lung but family is unclear on what the diagnosis specifically is or what the care plan/prognosis is. Will need to clarify. Catheter induced UTI with sepsis on admission Urine cultures growing gram-negative bacilli and blood cultures remains negative so far Started on intravenous ceftriaxone and vancomycin Will continue both with MRSA screen positive Blood cultures are negative Urine culture is growing Serratia marcescens which is pansensitive Clinically much better today and remains alert, awake and oriented x 3 Will continue IV ceftriaxone and vancomycin for now and likely to discontinue vancomycin from tomorrow Vancomycin has been discontinued Clinically stable without any fever and/or chills Blood cultures have been negative Severe electrolyte imbalance Secondary to sepsis and poor intake Electrolytes are improving with phosphate level remains minimally low at 1.9 Will replace intravenous phosphate today and monitor Still electrolytes remains depleted and is being supplemented Will monitor (2) History of lymphosarcoma: Plan: 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 Will discuss with the family members about further management with oncologist likely as an outpatient She is to we will to have any inpatient chemo therapy Will get records from [facility]-- Review of outpatient records shows an US from late November showing a complex LLQ anterior abd mass so will check CT abd/pel for better evaluation Prognosis remains poor Palliative care consulted-palliative will have a meeting with the family members on Monday Palliative care will evaluate her and discussed with the family members tomorrow History of DVT Has been on Coumadin with INR 3.3 as of 01/02/2024 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 Hold most of her narcotics and some of her sedating home medications to see if this helps with mental status. Since pt is hemodynamically stable and does have chronic pain, we will hold off on Narcan for now. Monitor mental status with treatment of infection. Will keep pt NPO until mental status improves as concern for aspiration if eating while this lethargic. For now, will use scheduled Tylenol for pt's chronic pain with low-dose oxy codone for breakthrough. Received small dose of oxycodone 5 mg this morning with 9 out of 10 pain and the patient became semiresponsive Will hold narcotic pain medications for now because of worsening lethargy and confusion and unresponsiveness Will not give any oxycodone-Ultram seems to be doing fine Metabolic and cephalopathy is cleared (4) History of methicillin resistant staphylococcus aureus (MRSA): Plan: Family reports chronic wounds have been associated with MRSA infection Check wound culture, MRSA nasal swab Continue Vancomycin for now Wound care consult (5) Anemia: Plan: Chronic issue Appears to be around her baseline but no recent labs in [facility] (6) PAD (peripheral artery disease): Plan: Was to see vascular surgery for a second opinion as outpatient but not clear that this was ever done Pt is on warfarin due to DVT in Aug 2023 - review of outpatient records shows that INR has been persistently elevated despite warfarin being on hold. Concern for liver dysfunction raised by cheyanne mercer. Continue to hold warfarin for now but check INR daily Plan Pt seen and reviewed with collaborating physician, Dr. Stevenson. Plan of care discussed and as outlined above. Will need to delineate goals and plan of care moving forward but limited information from family and [facility] makes this difficult. Continue to try to get her records from [facility]. Code Status: Full code per pt's son DVT Prophylaxis: INR currently 2.9 - has been on chronic warfarin though currently on hold Will restart Coumadin her INR is 1.5 today Admission and Anticipated Discharge Date Admission Date: January 01, 2024 Subjective 01/02/2024 The patient was seen and examined in presence of the son in telemetry unit She has been stable this morning and has had her breakfast and ask for more pain medications due to 9 out of 10 pain She was given 5 of oxy and following that she was snoring and was difficult to arouse She opens her eyes but does not talk remains very lethargic Hemodynamically stable with normal saturation 01/03/2024 The patient was seen and examined in telemetry unit She has been much better today Communicating normally and not in any acute distress Remains hemodynamically stable without any fever and or chills Remains generally weak and free of any pain 01/04/2024 Patient was seen and examined in telemetry unit She has been extremely lethargic and weak Still complains to have significant pain and wanted to have her MS Contin Pain is reasonably controlled with current regimen Review of Systems Review of Systems: All systems reviewed and are unremarkable except as noted below Physical Exam Physical Exam: Lying in bed without any acute distress Constitutional: + ill appearing and average body habitus Eyes: PERRL, conjunctivae normal, anicteric sclerae ENMT: external ear and nose normal, oropharynx normal Neck: trachea midline, no thyromegaly Respiratory: no respiratory distress Auscultation: + diminished lung sounds; no crackles Cardiovascular: Rate/Rhythm: regular rate and regular rhythm; not tachycardic Heart Sounds: normal S1 and normal S2; no murmur Extremities: no edema Gastrointestinal (Abdomen): Inspection/Auscultation: normal bowel sounds; abdomen not distended Percussion/Palpation: abdomen soft; abdomen nontender Musculoskeletal: No acute arthritis involving any of the joint Neurologic: Alert and awake, extremely weak and lethargic Lymphatic: no cervical or axillary lymphadenopathy Results & Data Results & Data Vital Signs (Past 12 Hours) Vital Signs Temp Pulse Resp BP BP Pulse Ox O2 Del Method 01/04/24 14:25 37.2 C 95 H 19 119/72 96 Room Air 01/04/24 10:52 37.2 C 81 17 110/64 96 Room Air 01/04/24 07:12 36.8 C 88 17 122/70 96 Room Air Laboratory Results Short CBC 01/04/24 Range/Units 05:31 WBC 7.90 (4.8-10.8) K/ul Hgb 8.5 L (12.0-16.0) g/dl Hct 27.8 L (37.0-47.0) % Plt Count 493 H (130-400) K/uL BMP 01/04/24 05:31 Sodium 134 L Potassium 4.0 Chloride 103 Carbon Dioxide 23 BUN 12 Creatinine 0.38 L Glucose 77 Calcium 7.5 L Medications Administered Current Inpatient Medications Amlodipine Besylate (Amlodipine Besylate 5 Mg Tab) 10 mg PO QAM [facility] Stop: 02/01/24 08:59 Last Admin: 01/04/24 09:18 Dose: 10 mg Buspirone HCl (Buspirone 5 Mg Tab) 10 mg PO BID [facility] Stop: 01/31/24 20:59 Last Admin: 01/04/24 09:17 Dose: 10 mg Docusate Sodium (Docusate Sodium 100 Mg Cap) 100 mg PO BID [facility] Stop: 01/31/24 20:59 Last Admin: 01/04/24 09:18 Dose: Not Given Acetaminophen (Ofirmev) 1,000 mg in 100 mls @ 400 mls/hr IV Q8H [facility] Stop: 01/04/24 16:59 Last Infusion: 01/04/24 10:01 Dose: Infused Vancomycin HCl 1,250 mg/ (Sodium Chloride) 275 mls @ 200 mls/hr IV Q12H [facility] Stop: 01/04/24 23:59 Last Admin: 01/04/24 14:52 Dose: 200 mls/hr Ceftriaxone Sodium 2,000 mg/ (Dextrose) 50 mls @ 100 mls/hr IV Q24H [facility]; Protocol Stop: 01/07/24 14:59 Last Infusion: 01/03/24 15:09 Dose: Infused Ketorolac Tromethamine (Ketorolac Tromethamine 15 Mg/Ml Vial) 15 mg IV Q6H PRN PRN Reason: Pain Stop: 01/06/24 19:22 Last Admin: 01/04/24 10:06 Dose: 15 mg Lidocaine (Lidocaine 5% 1 Patch) 1 patch TD QAM [facility] Stop: 02/01/24 08:59 Last Admin: 01/04/24 09:18 Dose: 1 patch Losartan Potassium (Losartan Potassium 25 Mg Tab) 25 mg PO QAM [facility] Stop: 02/01/24 08:59 Last Admin: 01/04/24 09:18 Dose: 25 mg Miscellaneous (Remove Lidoderm Patch) 1 each N/A DAILY@2100 [facility] Stop: 01/31/24 20:59 Last Admin: 01/03/24 21:20 Dose: 1 each Miscellaneous Information (Vancomycin Consult Active) 1 each N/A UD PRN PRN Reason: Consult Stop: 01/04/24 23:59 Oxycodone HCl (Oxycodone Hcl Ir 5 Mg Tab (Immediate Release)) 5 mg PO Q4H PRN PRN Reason: Mod-Sev Pain (Scale 4-10) Stop: 01/15/24 17:33 Last Admin: 01/02/24 08:58 Dose: 5 mg Pregabalin (Pregabalin 150 Mg Cap) 150 mg PO TID [facility] Stop: 01/31/24 20:59 Last Admin: 01/04/24 14:52 Dose: 150 mg (1) UTI (urinary tract infection) Urinary tract infection type: catheter-associated UTI Indwelling urinary catheter type: indwelling urethral catheter Encounter type: initial encounter Qualified Code(s): T83.511A - Infection and inflammatory reaction due to indwelling urethral catheter, initial encounter; N39.0 - Urinary tract infection, site not specified (5) Anemia Anemia type: iron deficiency Iron deficiency anemia type: unspecified iron deficiency Qualified Code(s): D50.9 - Iron deficiency anemia, unspecified
[2024-01-04] MEDS: oxyCODONE HCL IR 5 MG TAB (IMMEDIATE RELEASE) PO PRN (19:44)
[2024-01-05 11:50] LABS: Basophils # (auto) 0.05 K/uL (0.00-0.20); Basophils % (auto) 0.7 %; Eosinophils % (auto) 1.3 %; Immature Granulocytes # (auto) 0.06 K/uL (0.01-0.20); Immature Granulocytes % (auto) 0.8 %; Lymphocytes # (auto) 1.41 K/uL (1.20-3.40); Lymphocytes % (auto) 18.4 %; Mean Corpuscular Hemoglobin 23.4 pg (25.0-34.0); Mean Corpuscular Volume 78.1 fL (80.0-100.0); Mean Platelet Volume 8.8 fL (9.4-12.4); Monocytes # (auto) 0.75 K/uL (0.11-0.59); Monocytes % (auto) 9.8 %; Platelet Count 480 K/uL (130-400); RDW Coefficient of Variation 18.6 % (11.5-14.5); RDW Standard Deviation 51.7 fL (36.4-46.3); Red Blood Count 3.84 M/uL (4.20-5.40); White Blood Count 7.67 K/ul (4.8-10.8)
[2024-01-05 12:04] LABS: BUN Creatinine Ratio 25.7 (10-20); Calcium 7.9 mg/dl (8.6-10.3); Creatinine Clr Calc Pharmacy 125.5 ml/min; Est GFR (Non-African American) 108.7 ml/min; Potassium 4.1 mmol/L (3.5-5.1)
[2024-01-05 12:09] LABS: Magnesium 1.5 mg/dl (1.7-2.4)
[2024-01-05 12:12] LABS: INR 1.1 (0.9-1.1); Prothrombin Time 12.3 Seconds (9.0-12.0)
[2024-01-05] MEDS ORDERED: SODIUM PHOSPHATE 3 MMOL/1 ML 5 ML VIAL IV ONE (12:16)
[2024-01-05] MEDS: SODIUM PHOSPHATE 30 MMOL in SODIUM CHLORIDE 0.9% 500 ML IV ONE (12:52)
[2024-01-05] MEDS: MAGNESIUM SULFATE / D5W 1 GM/100 ML BAG IV SCH (12:52)
--- NOTE | 2024-01-05 17:04 | Hospitalist Progress Note ---
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 Pt has a chronic Kevin catheter for unclear reasons. Work-up in the ED appears consistent with UTI. Pt has apparently been diagnosed with new cancer of the bone in her left leg and possibly metastatic to lung but family is unclear on what the diagnosis specifically is or what the care plan/prognosis is. Will need to clarify. Catheter induced UTI with sepsis on admission Urine cultures growing gram-negative bacilli and blood cultures remains negative so far Started on intravenous ceftriaxone and vancomycin Will continue both with MRSA screen positive Blood cultures are negative Urine culture is growing Serratia marcescens which is pansensitive Clinically much better today and remains alert, awake and oriented x 3 Will continue IV ceftriaxone and vancomycin for now and likely to discontinue vancomycin from tomorrow Vancomycin has been discontinued Clinically stable without any fever and/or chills Blood cultures have been negative Severe electrolyte imbalance Secondary to sepsis and poor intake Electrolytes are improving with phosphate level remains minimally low at 1.9 Will replace intravenous phosphate today and monitor Still electrolytes remains depleted and is being supplemented Electrolytes remain depleted and will replace and monitor Palliative care encounter Likely going to be hospice care at home following discharge Would ask for radiation oncologist for possible radiation therapy to the pelvis No chemo and/or surgery Will change the CODE STATUS to DNR and DNI Adequate pain medications will be provided (2) History of lymphosarcoma: Plan: 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 Will discuss with the family members about further management with oncologist likely as an outpatient She is to we will to have any inpatient chemo therapy Will get records from [facility]-- Review of outpatient records shows an US from late November showing a complex LLQ anterior abd mass so will check CT abd/pel for better evaluation Prognosis remains poor Palliative care consulted-palliative will have a meeting with the family members on Monday Palliative care will evaluate her and discussed with the family members tomorrow Appreciate palliative care input and recommendation Will ask for radiation oncology on Monday History of DVT Has been on Coumadin with INR 3.3 as of 01/02/2024 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 Hold most of her narcotics and some of her sedating home medications to see if this helps with mental status. Since pt is hemodynamically stable and does have chronic pain, we will hold off on Narcan for now. Monitor mental status with treatment of infection. Will keep pt NPO until mental status improves as concern for aspiration if eating while this lethargic. For now, will use scheduled Tylenol for pt's chronic pain with low-dose oxycodone for breakthrough. Received small dose of oxycodone 5 mg this morning with 9 out of 10 pain and the patient became semiresponsive Will hold narcotic pain medications for now because of worsening lethargy and confusion and unresponsiveness Will not give any oxycodone-Ultram seems to be doing fine Metabolic and cephalopathy is cleared (4) History of methicillin resistant staphylococcus aureus (MRSA): Plan: Family reports chronic wounds have been associated with MRSA infection Check wound culture, MRSA nasal swab Continue Vancomycin for now Wound care consult (5) Anemia: Plan: Chronic issue Appears to be around her baseline but no recent labs in Epic (6) PAD (peripheral artery disease): Plan: Was to see vascular surgery for a second opinion as outpatient but not clear that this was ever done Pt is on warfarin due to DVT in Aug 2023 - review of outpatient records shows that INR has been persistently elevated despite warfarin being on hold. Concern for liver dysfunction raised by cheyanne mercer. Continue to hold warfarin for now but check INR daily Plan Pt seen and reviewed with collaborating physician, Dr. Stevenson. Plan of care discussed and as outlined above. Will need to delineate goals and plan of care moving forward but limited information from family and Epic makes this difficult. Continue to try to get her records from [facility]. Code Status: Full code per pt's son DVT Prophylaxis: INR currently 2.9 - has been on chronic warfarin though currently on hold Will restart Coumadin her INR is 1.5 today Admission and Anticipated Discharge Date Admission Date: January 01, 2024 Subjective 01/02/2024 The patient was seen and examined in presence of the son in telemetry unit She has been stable this morning and has had her breakfast and ask for more pain medications due to 9 out of 10 pain She was given 5 of oxy and following that she was snoring and was difficult to arouse She opens her eyes but does not talk remains very lethargic Hemodynamically stable with normal saturation 01/03/2024 The patient was seen and examined in telemetry unit She has been much better today Communicating normally and not in any acute distress Remains hemodynamically stable without any fever and or chills Remains generally weak and free of any pain 01/04/2024 Patient was seen and examined in telemetry unit She has been extremely lethargic and weak Still complains to have significant pain and wanted to have her MS Contin Pain is reasonably controlled with current regimen 01/05/2024 The patient was seen and examined in telemetry unit in presence of the family members She has been stable and the pain seems to be controlled Remains weak and lethargic Has been eating and drinking reasonably Has had palliative care meeting with the family this afternoon Review of Systems Review of Systems: All systems reviewed and are unremarkable except as noted below Physical Exam Physical Exam: Lying in bed without any acute distress Constitutional: + ill appearing and average body habitus Eyes: PERRL, conjunctivae normal, anicteric sclerae ENMT: external ear and nose normal, oropharynx normal Neck: trachea midline, no thyromegaly Respiratory: no respiratory distress Auscultation: + diminished lung sound s; no crackles Cardiovascular: Rate/Rhythm: regular rate and regular rhythm; not tachycardic Heart Sounds: normal S1 and normal S2; no murmur Extremities: no edema Gastrointestinal (Abdomen): Inspection/Auscultation: normal bowel sounds; abdomen not distended Percussion/Palpation: abdomen soft; abdomen nontender Musculoskeletal: No acute arthritis involving any of the joint Neurologic: moves all extremities; no focal motor deficits Lymphatic: no cervical or axillary lymphadenopathy Results & Data Results & Data Vital Signs (Past 12 Hours) Vital Signs Temp Pulse Resp BP Pulse Ox O2 Del Method 01/05/24 15:34 36.9 C 102 H 18 134/79 94 Room Air 01/05/24 11:34 37.1 C 90 18 129/75 94 Room Air 01/05/24 07:24 37.3 C 103 H 16 146/77 H 95 Room Air Laboratory Results Short CBC 01/05/24 Range/Units 11:18 WBC 7.67 (4.8-10.8) K/ul Hgb 9.0 L (12.0-16.0) g/dl Hct 30.0 L (37.0-47.0) % Plt Count 480 H (130-400) K/uL BMP 01/05/24 11:18 Sodium 135 L Potassium 4.1 Chloride 104 Carbon Dioxide 23 BUN 9 Creatinine 0.35 L Glucose 120 H Calcium 7.9 L Medications Administered Current Inpatient Medications Amlodipine Besylate (Amlodipine Besylate 5 Mg Tab) 10 mg PO QAM ENRIQUE Stop: 02/01/24 08:59 Last Admin: 01/05/24 08:51 Dose: 10 mg Buspirone HCl (Buspirone 5 Mg Tab) [address] [facility] Stop: 01/31/24 20:59 Last Admin: 01/05/24 08:52 Dose: 10 mg Docusate Sodium (Docusate Sodium 100 Mg Cap) 100 mg PO BID ENRIQUE Stop: 01/31/24 20:59 Last Admin: 01/05/24 08:52 Dose: 100 mg Ceftriaxone Sodium 2,000 mg/ (Dextrose) 50 mls @ 100 mls/hr IV Q24H ENRIQUE; Protocol Stop: 01/07/24 14:59 Last Infusion: 01/04/24 17:37 Dose: Infused Sodium Phosphate 30 mmol/ (Sodium Chloride) 510 mls @ 88 mls/hr IV ONE ONE Stop: 01/05/24 18:32 Last Admin: 01/05/24 12:52 Dose: 88 mls/hr Ketorolac Tromethamine (Ketorolac Tromethamine 15 Mg/Ml Vial) 15 mg IV Q6H PRN PRN Reason: Pain Stop: 01/06/24 19:22 Last Admin: 01/05/24 15:45 Dose: 15 mg Lidocaine (Lidocaine 5% 1 Patch) [facility] Stop: 02/01/24 08:59 Last Admin: 01/05/24 08:53 Dose: 1 patch Losartan Potassium (Losartan Potassium 25 Mg Tab) [address] [facility] Stop: 02/01/24 08:59 Last Admin: 01/05/24 08:53 Dose: 25 mg Miscellaneous (Remove Lidoderm Patch) 1 each N/A DAILY@2100 [facility] Stop: 01/31/24 20:59 Last Admin: 01/04/24 20:07 Dose: 1 each Oxycodone HCl (Oxycodone Hcl Ir 5 Mg Tab (Immediate Release)) 2.5 mg PO Q3H PRN PRN Reason: Mod-Sev Pain (Scale 4-10) Stop: 01/15/24 19:23 Last Admin: 01/05/24 15:45 Dose: 5 mg Pregabalin (Pregabalin 150 Mg Cap) [address] [facility] Stop: 01/31/24 20:59 Last Admin: 01/05/24 08:54 Dose: 150 mg (1) UTI (urinary tract infection) Urinary tract infection type: catheter-associated UTI Indwelling urinary catheter type: indwelling urethral catheter Encounter type: initial encounter Qualified Code(s): T83.511A - Infection and inflammatory reaction due to indwelling urethral catheter, initial encounter; N39.0 - Urinary tract infection, site not specified (5) Anemia Anemia type: iron deficiency Iron deficiency anemia type: unspecified iron deficiency Qualified Code(s): D50.9 - Iron deficiency anemia, unspecified
--- NOTE | 2024-01-05 17:48 | Palliative Family Discussion ---
Date of Service January 05, 2024 Patient Directed Conference Time of [id number] Participants: Noelle Nava DNP Patient participation: yes Patient Support System: luigi Pollard, /mitchel's , Marvin Napier,. dtr Taya and pt /he has adv PD Other Healthcare Provider Participation: None Meeting Location: bedside Advanced Directive available: NO The patient's surrogate medical decision maker participated: dtr and sons A family meeting was held for ROXANNE LOYD. This meeting was necessary for determining the appropriate course of treatment. Topics of Discussion Topics of Discussion: 1. Overall decline 2. New lesions c/w recurrent sarcoma 3. She does not want chemo or surgery; we discussed poss palliative RT-she is willing to have consult ordered while admitted. She notes she was and still is willing to go to [facility] where she used to work but would prefer home with hospice if family can come together with caregiver support. They are willing to try and will take the weekend to coordinate schedules and see who else might be able to help. 4. We discussed the goals of hospice as a patient service and the goals of care; we discussed EOL trajectories and transitions pablo the emotional impact of r ealizing mortality as a concrete reality from prior abstract considerations. Pt was reassured that no matter where they are along this trajectory, they are not alone - their medical team will remain by their side through their journey. Discussed the pros/cons of accepting help when especially weakened and distressed by pain-which would also help provide relief/decrease caregiver burden/strain. I provided education about the hospice benefit: an interdisciplinary program offered by nurses, nurses aides, social workers, chaplains and a medical billing specialist for patients with a terminal condition and a life expectancy of less than 6 months. This is covered by Medicare at 100%/no out of pocket expense to patient and all meds/supplies needed by patient for the reason they are on hospice are paid for/covered by hospice. The goal is assure quality of life of the patient in their home setting (home, care home, inpatient hospice setting) by providing symptoms management, psychosocial and spiritual support. However, they cannot offer 24 hours care and if the family is unable to provide that care, they will have to consider personal care with out of pocket cost vs. care home placement. We discussed the goals of hospice as a patient service and the goals of care; we discussed EOL trajectories and transitions pablo the emotional impact of realizing mortality as a concrete reality from prior abstract considerations. Pt was reassured that no matter where they are along this trajectory, they are not alone - their medical team will remain by their side through their journey. Discussed the pros/cons of accepting help when especially weakened and distressed by pain-which would also help provide relief/decrease caregiver burden/strain. Other Content of Meetin. Opportunity given for participants to speak and ask questions. 2. Participants were assured of attention to patient comfort. 3. Reassurance provided. 4. Support was provided for informed, good-cristian decisions. 5. Emotions expressed by family were acknowledged and addressed. 6. Rad Onc consult monday and likely home hospice once stable; she would like her pain meds started and I have ordered 7. Additional eol info as noted below was provided: * Dying patients fear dyspnea and pain, therefore, symptom control is one cornerstone of pulmonary palliative care. Dyspnea is a prominent symptom of the patient with advanced respiratory disease of any cause: nearly all patients with COPD had dyspnea during the last 3 days of their lives. Providers routinely care for patients with chronic or advanced respiratory diseases and critical illnesses. The ATS recognizes: the growing importance and complexity of palliative care for patients with life-threatening and life-limiting diseases and disorders and the need for improving professional competence and teamwork in providing such care. The statement strongly endorses the concept that palliative care should be available to patients at all stages of illness and should be individualized based on the needs and preferences of the patient and the patients family. Clinicians should consult with palliative care specialists as appropriate for managing palliative care situations beyond the clinicians level of competence. (ATS Clinical Policy Statement: Palliative Care for Patients with Respiratory Diseases and Critical Illnesses; Dina Traore, et al., for the [employer], the [employer], the [employer] [employer], and the Respiratory Society* Diagnosis and Management of Stable Chronic Obstructive Pulmonary Disease: A Clinical Practice Guideline Update from the [employer], [employer], [employer] [employer], and Respiratory Society . Simi Disease Education Specialist Med. 2011;155:179-191.) * Dying process: Discussed changes pt may move through in the dying process inc luding but not limited to sleeping more, disorientation when awake, restlessness, diminished senses/inability to respond to stimulus although ability to be aware of them remains intact longer, and changes in body temperatures, skin changes/mottling/cyanosis, respiratory pattern changes, and oral secretions. Family verbalized understanding. The goal is to assure a peaceful . * EOL Rally: When a person facing the end of life rallies, they seem to become "more stable" - may want to talk or even begin taking PO; this phenomenon is usually seen as a sudden burst of energy before . This period of perking up can be accompanied by such a notable change in mental clarity that is often referred to as terminal lucidity. This change in cognition and behavior goes against everything families learn about the physical signs that the end of life is near. It is important to note that evidence-based data is elusive, if nonexistent. Theories support that it may be a search for a final, strong connection. Also, as organs shut down, they can release a steroid like compound that briefly rouses the body - in the specific case of brain tumors, swelling occurs in the confined space of the skull. The edema shrinks as EOL care patients are weaned off food and drink, waking up the brain a bit. Families and caregivers may grasp at what seems to be a turnaround in a loved ones health, however, the EOL Rally is a hallmark pre- sign. It is not uncommon for patients to show improvement before : they may want to talk while others may become restless or act as if they need to start preparing for a trip. Some patients will become more relaxed yet remain tuned in to what is going on around them, others will show signs of physical stability when, seconds before, they seemed on the verge of letting go. A rally can last for a few moments or even days. Short or long, these temporary improvements can have a profound effect on loved ones who are keeping conner. Like a moment of clarity for someone who has dementia, a rally is one last opportunity to connect with a loved one. Each persons experience is unique and impossible to predict with total accuracy. Life is full of questions, and some of them simply are not meant to be answered. Read more: [email or web address] * Oxygen at EOL: For patients at the end of life, oxygen delivered by a nasal cannula provides no additional symptomatic benefit for relief of refractory dyspnea in patients with life-limiting illness compared with room air: there's a point at which that the oxygen level gets so low that it's no longer compatible with life. By providing supplemental oxygen, the dying process will be unnecessarily prolonged. Please use less burdensome but more effective strategies such as comfort care meds, oscillating fan, massage, repositioning, etc. (Elizabeth AP, Tom CF, Linus MORELOS, et al. Effect of palliative oxygen versus room air in relief of breathlessness in patients with refractory dyspnoea: a double-blind, randomised controlled trial. Lancet. 2010;376(1146):024-793. doi:10.1016/[id number]([id number])54317-4) Time Involved in Meeting: I spent 60 minutes overall addressing this case
[2024-01-05] MEDS: oxyCODONE HCL 10 MG TABCR (OxyCONTIN) PO SCH (18:49)
[2024-01-05] MEDS: AMITRIPTYLINE HCL 10 MG TAB PO SCH (20:05)
[2024-01-05] MEDS: oxyCODONE HCL IR 5 MG TAB (IMMEDIATE RELEASE) PO PRN (20:52)
[2024-01-06 06:10] LABS: BUN Creatinine Ratio 22.2 (10-20); Calcium 7.7 mg/dl (8.6-10.3); Est GFR (African American) 124.9 ml/min; Est GFR (Non-African American) 107.7 ml/min; Magnesium 1.7 mg/dl (1.7-2.4); Phosphorus 1.9 mg/dl (2.5-4.9)
[2024-01-06 06:26] LABS: Basophils # (auto) 0.05 K/uL (0.00-0.20); Basophils % (auto) 0.6 %; Echinocytes 1+; Eosinophils # (auto) 0.27 K/uL (0.00-0.50); Eosinophils % (auto) 3.5 %; Hematocrit (blood only) 30.2 % (37.0-47.0); Hemoglobin 8.7 g/dl (12.0-16.0); Immature Granulocytes # (auto) 0.07 K/uL (0.01-0.20); Immature Granulocytes % (auto) 0.9 %; Lymphocytes # (auto) 1.61 K/uL (1.20-3.40); Lymphocytes % (auto) 20.9 %; Mean Corpuscular Hemoglobin 22.9 pg (25.0-34.0); Mean Corpuscular Hgb Conc 28.8 g/dL (32.0-36.0); Mean Corpuscular Volume 79.5 fL (80.0-100.0); Mean Platelet Volume 8.9 fL (9.4-12.4); Monocytes # (auto) 0.78 K/uL (0.11-0.59); Monocytes % (auto) 10.1 %; Neutrophils # (auto) 4.94 K/uL (1.40-6.50); Platelet Count 445 K/uL (130-400); Polychromasia 1+; RDW Standard Deviation 52.7 fL (36.4-46.3); White Blood Count 7.72 K/ul (4.8-10.8)
[2024-01-06 06:31] LABS: Prothrombin Time 11.4 Seconds (9.0-12.0)
[2024-01-06] MEDS: ENOXAPARIN INJ 40 MG/0.4 ML SYR SQ SCH (09:38)
[2024-01-06] MEDS: ENOXAPARIN INJ 60 MG/0.6 ML SYR SQ SCH ×2 (14:15→20:49)
--- NOTE | 2024-01-06 15:40 | Hospitalist Progress Note ---
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 Pt has a chronic Kevin catheter for unclear reasons. Work-up in the ED appears consistent with UTI. Pt has apparently been diagnosed with new cancer of the bone in her left leg and possibly metastatic to lung but family is unclear on what the diagnosis specifically is or what the care plan/prognosis is. Will need to clarify. Catheter induced UTI with sepsis on admission Urine cultures growing gram-negative bacilli and blood cultures remains negative so far Started on intravenous ceftriaxone and vancomycin Will continue both with MRSA screen positive Blood cultures are negative Urine culture is growing Serratia marcescens which is pansensitive Clinically much better today and remains alert, awake and oriented x 3 Will continue IV ceftriaxone and vancomycin for now and likely to discontinue vancomycin from tomorrow Vancomycin has been discontinued Clinically stable without any fever and/or chills Blood cultures have been negative Clinically much better and will continue current management Severe electrolyte imbalance Secondary to sepsis and poor intake Electrolytes are improving with phosphate level remains minimally low at 1.9 Will replace intravenous phosphate today and monitor Still electrolytes remains depleted and is being supplemented Electrolytes remain depleted and will replace and monitor Electrolytes not yet corrected and she is getting replacement Advised to eat and drink more Palliative care encounter Likely going to be hospice care at home following discharge Would ask for radiation oncologist for possible radiation therapy to the pelvis No chemo and/or surgery Will change the CODE STATUS to DNR and DNI Adequate pain medications will be provided Will increase the pain medications tomorrow if needed (2) History of lymphosarcoma: Plan: 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 Will discuss with the family members about further management with oncologist likely as an outpatient She is to we will to have any inpatient chemo therapy Will get records from [facility]-- Review of outpatient records shows an US from late November showing a complex LLQ anterior abd mass so will check CT abd/pel for better evaluation Prognosis remains poor Palliative care consulted-palliative will have a meeting with the family members on Monday Palliative care will evaluate her and discussed with the family members tomorrow Appreciate palliative care input and recommendation Will ask for radiation oncology on Monday History of DVT Has been on Coumadin with INR 3.3 as of 01/02/2024 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 Hold most of her narcotics and some of her sedating home medications to see if this helps with mental status. Since pt is hemodynamically stable and does have chronic pain, we will hold off on Narcan for now. Monitor mental status with treatment of infection. Will keep pt NPO until mental status improves as concern for aspiration if eating while this lethargic. For now, will use scheduled Tylenol for pt's chronic pain with low-dose oxycodone for breakthrough. Received small dose of oxycodone 5 mg this morning with 9 out of 10 pain and the patient became semiresponsive Will hold narcotic pain medications for now because of worsening lethargy and confusion and unresponsiveness Will not give any oxycodone-Ultram seems to be doing fine Metabolic and cephalopathy is cleared (4) History of methicillin resistant staphylococcus aureus (MRSA): Plan: Family reports chronic wounds have been associated with MRSA infection Check wound culture, MRSA nasal swab Continue Vancomycin for now Wound care consult (5) Anemia: Plan: Chronic issue Appears to be around her baseline but no recent labs in Epic (6) PAD (peripheral artery disease): Plan: Was to see vascular surgery for a second opinion as outpatient but not clear that this was ever done Pt is on warfarin due to DVT in Aug 2023 - review of outpatient records shows that INR has been persistently elevated despite warfarin being on hold. Concern for liver dysfunction raised by cheyanne mercer. Continue to hold warfarin for now but check INR daily Plan Pt seen and reviewed with collaborating physician, Dr. Stevenson. Plan of care discussed and as outlined above. Will need to delineate goals and plan of care moving forward but limited information from family and Epic makes this difficult. Continue to try to get her records from [facility]. Code Status: Full code per pt's son DVT Prophylaxis: INR currently 2.9 - has been on chronic warfarin though currently on hold Will restart Coumadin her INR is 1.5 today Admission and Anticipated Discharge Date Admission Date: January 01, 2024 Subjective 01/02/2024 The patient was seen and examined in presence of the son in telemetry unit She has been stable this morning and has had her breakfast and ask for more pain medications due to 9 out of 10 pain She was given 5 of oxy and following that she was snoring and was difficult to arouse She opens her eyes but does not talk remains very lethargic Hemodynamically stable with normal saturation 01/03/2024 The patient was seen and examined in telemetry unit She has been much better today Communicating normally and not in any acute distress Remains hemodynamically stable without any fever and or chills Remains generally weak and free of any pain 01/04/2024 Patient was seen and examined in telemetry unit She has been extremely lethargic and weak Still complains to have significant pain and wanted to have her MS Contin Pain is reasonably controlled with current regimen 01/05/2024 The patient was seen and examined in telemetry unit in presence of the family members She has been stable and the pain seems to be controlled Remains weak and lethargic Has been eating and drinking reasonably Has had palliative care meeting with the family this afternoon 01/06/2024 The patient was seen and examined in telemetry unit in presence of the family members She has been feeling better Wants her pain medication to be increased Denies any significant distress and her pain Review of Systems Review of Systems: All systems reviewed and are unremarkable except as noted below Physical Exam Physical Exam: Lying in bed without any acute distress Constitutional: + ill appearing and average body habitus Eyes: PERRL, conjunctivae normal, anicteric sclerae ENMT: external ear and nose normal, oropharynx normal Neck: trachea midline, no thyromegaly Respiratory: no respiratory distress Auscultation: + diminished lung sounds; no crackles Cardiovascular: Rate/Rhythm: regular rate and regular rhythm; not tachycardic Heart Sounds: normal S1 and normal S2; no murmur Extremities: no edema Gastrointestinal (Abdomen): Inspection/Auscultation: normal bowel sounds; abdomen not distended Percussion/Palpation: abdomen soft; abdomen nontender Neurologic: moves all extremities; no focal motor deficits Lymphatic: no cervical or axillary lymphadenopathy Results & Data Results & Data Vital Signs (Past 12 Hours) Vital Signs Temp Pulse Pulse Resp BP Pulse Ox O2 Del Method 01/06/24 15:31 36.8 C 98 H 18 133/76 94 Room Air 01/06/24 11:16 36.8 C 95 H 18 119/74 95 Room Air 01/06/24 09:00 Room Air 01/06/24 07:30 87 01/06/24 07:23 36.9 C 103 H 18 139/79 94 Room Air Laboratory Results Short CBC 01/06/24 Range/Units 05:29 WBC 7.72 (4.8-10.8) K/ul Hgb 8.7 L (12.0-16.0) g/dl Hct 30.2 L (37.0-47.0) % Plt Count 445 H (130-400) K/uL BMP 01/06/24 05:29 Sodium 131 L Potassium 4.0 Chloride 101 Carbon Dioxide 23 BUN 8 Creatinine 0.36 L Glucose 101 H Calcium 7.7 L Medications Administered Current Inpatient Medications Amitriptyline HCl (Amitriptyline Hcl 10 Mg Tab) 10 mg PO HS ENRIQUE Stop: 02/04/24 20:59 Last Admin: 01/05/24 20:05 Dose: 10 mg Amlodipine Besylate (Amlodipine Besylate 5 Mg Tab) 10 mg PO QAM ENRIQUE Stop: 02/01/24 08:59 Last Admin: 01/06/24 09:38 Dose: 10 mg Buspirone HCl (Buspirone 5 Mg Tab) 10 mg PO BID [facility] Stop: 01/31/24 20:59 Last Admin: 01/06/24 09:38 Dose: 10 mg Docusate Sodium (Docusate Sodium 100 Mg Cap) 100 mg PO BID [facility] Stop: 01/31/24 20:59 Last Admin: 01/06/24 09:38 Dose: 100 mg Enoxaparin Sodium (Enoxaparin Inj 60 Mg/0.6 Ml Syr) 60 mg SQ Q12H [facility] Stop: 02/05/24 13:59 Last Admin: 01/06/24 14:15 Dose: Not Given Ceftriaxone Sodium 2,000 mg/ (Dextrose) 50 mls @ 100 mls/hr IV Q24H [facility]; Protocol Stop: 01/07/24 14:59 Last Admin: 01/06/24 15:14 Dose: 100 mls/hr Ketorolac Tromethamine (Ketorolac Tromethamine 15 Mg/Ml Vial) 15 mg IV Q6H PRN PRN Reason: Pain Stop: 01/06/24 19:22 Last Admin: 01/06/24 09:39 Dose: 15 mg [facility]oc[facility] ([facility] 5% 1 [facility]) [facility]: 02/01/24 08:59 Last Admin: 01/06/24 09:40 Dose: 1 patch Losartan Potassium (Losartan Potassium 25 Mg Tab) [facility] Stop: 02/01/24 08:59 Last Admin: 01/06/24 09:38 Dose: 25 mg Miscellaneous (Remove Lidoderm Patch) 1 each N/A DAILY@2100 [facility] Stop: 01/31/24 20:59 Last Admin: 01/05/24 20:06 Dose: 1 each Oxycodone HCl (Oxycodone Hcl Ir 5 Mg Tab (Immediate Release)) 2.5 mg PO Q3H PRN PRN Reason: Mod-Sev Pain (Scale 4-10) Stop: 01/15/24 19:23 Last Admin: 01/05/24 15:45 Dose: 5 mg Oxycodone HCl (Oxycodone Hcl 10 Mg Tabcr (Oxycontin)) 10 mg PO Q12H [facility] Stop: 01/19/24 17:59 Last Admin: 01/06/24 05:33 Dose: 10 mg Oxycodone HCl (Oxycodone Hcl Ir 5 Mg Tab (Immediate Release)) 5 mg PO Q3H PRN PRN Reason: pain breakthru Stop: 01/19/24 17:48 Last Admin: 01/06/24 04:12 Dose: 5 mg Pregabalin (Pregabalin 150 Mg Cap) 150 mg PO TID [facility] Stop: 01/31/24 20:59 Last Admin: 01/06/24 14:02 Dose: 150 mg (1) UTI (urinary tract infection) Urinary tract infection type: catheter-associated UTI Indwelling urinary catheter type: indwelling urethral catheter Encounter type: initial encounter Qualified Code(s): T83.511A - Infection and inflammatory reaction due to indwelling urethral catheter, initial encounter; N39.0 - Urinary tract infection, site not specified (5) Anemia Anemia type: iron deficiency Iron deficiency anemia type: unspecified iron deficiency Qualified Code(s): D50.9 - Iron deficiency anemia, unspecified
[2024-01-07 06:24] LABS: BUN Creatinine Ratio 26.3 (10-20); Calcium 8.5 mg/dl (8.6-10.3); Creatinine Clr Calc Pharmacy 115.6 ml/min; Est GFR (African American) 122.7 ml/min; Est GFR (Non-African American) 105.8 ml/min; Magnesium 1.6 mg/dl (1.7-2.4); Phosphorus 2.1 mg/dl (2.5-4.9); Potassium 4.3 mmol/L (3.5-5.1)
[2024-01-07 06:54] LABS: Basophils # (auto) 0.04 K/uL (0.00-0.20); Basophils % (auto) 0.5 %; Eosinophils # (auto) 0.19 K/uL (0.00-0.50); Eosinophils % (auto) 2.3 %; Hemoglobin 8.9 g/dl (12.0-16.0); Immature Granulocytes # (auto) 0.07 K/uL (0.01-0.20); Immature Granulocytes % (auto) 0.8 %; Lymphocytes # (auto) 1.98 K/uL (1.20-3.40); Lymphocytes % (auto) 23.8 %; Mean Corpuscular Hemoglobin 23.1 pg (25.0-34.0); Mean Corpuscular Hgb Conc 28.7 g/dL (32.0-36.0); Mean Corpuscular Volume 80.5 fL (80.0-100.0); Mean Platelet Volume 9.3 fL (9.4-12.4); Monocytes # (auto) 0.96 K/uL (0.11-0.59); Monocytes % (auto) 11.5 %; Neutrophils # (auto) 5.09 K/uL (1.40-6.50); Neutrophils % (auto) 61.1 %; Platelet Count 454 K/uL (130-400); Polychromasia 1+; RDW Coefficient of Variation 19.5 % (11.5-14.5); RDW Standard Deviation 54.1 fL (36.4-46.3); Red Blood Count 3.85 M/uL (4.20-5.40); White Blood Count 8.33 K/ul (4.8-10.8)
[2024-01-07] MEDS ORDERED: SODIUM PHOSPHATE 3 MMOL/1 ML 5 ML VIAL IV ONE (08:24)
[2024-01-07] MEDS: SODIUM PHOSPHATE 24 MMOL in SODIUM CHLORIDE 0.9% 500 ML IV ONE (09:25)
[2024-01-07] MEDS: MAGNESIUM SULFATE / D5W 1 GM/100 ML BAG IV SCH (09:25)
[2024-01-07] MEDS: HYDROmorphone INJ 0.5 MG/0.5 ML SYR IV PRN (10:34)
--- NOTE | 2024-01-07 14:38 | Hospitalist Progress Note ---
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 Pt has a chronic Kevin catheter for unclear reasons. Work-up in the ED appears consistent with UTI. Pt has apparently been diagnosed with new cancer of the bone in her left leg and possibly metastatic to lung but family is unclear on what the diagnosis specifically is or what the care plan/prognosis is. Will need to clarify. Catheter induced UTI with sepsis on admission Urine cultures growing gram-negative bacilli and blood cultures remains negative so far Started on intravenous ceftriaxone and vancomycin Will continue both with MRSA screen positive Blood cultures are negative Urine culture is growing Serratia marcescens which is pansensitive Clinically much better today and remains alert, awake and oriented x 3 Will continue IV ceftriaxone and vancomycin for now and likely to discontinue vancomycin from tomorrow Vancomycin has been discontinued Clinically stable without any fever and/or chills Blood cultures have been negative Clinically much better and will continue current management Severe electrolyte imbalance Secondary to sepsis and poor intake Electrolytes are improving with phosphate level remains minimally low at 1.9 Will replace intravenous phosphate today and monitor Still electrolytes remains depleted and is being supplemented Electrolytes remain depleted and will replace and monitor Electrolytes not yet corrected and she is getting replacement Advised to eat and drink more Electrolytes there is still abnormal and will continue to replace and monitor Palliative care encounter Likely going to be hospice care at home following discharge Would ask for radiation oncologist for possible radiation therapy to the pelvis No chemo and/or surgery Will change the CODE STATUS to DNR and DNI Adequate pain medications will be provided Pain is not controlled and will increase pain medications to long-acting oxycodone 20 mg twice daily Intravenous Dilaudid 0.25 mg every 3 hourly was added to better control of pain (2) History of lymphosarcoma: Plan: 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 to clarify Pending review of records, consider inpatient vs. 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 Hold most of her narcotics and some of her sedating home medications to see if this helps with mental status. Since pt is hemodynamically stable and does have chronic pain, we will hold off on Narcan for now. Monitor mental status with treatment of infection. Will keep pt NPO until mental status improves as concern for aspiration if eating while this lethargic. For now, will use scheduled Tylenol for pt's chronic pain with low-dose oxycodone for breakthrough. Received small dose of oxycodone 5 mg this morning with 9 out of 10 pain and the patient became semiresponsive Will hold narcotic pain medications for now because of worsening lethargy and confusion and unresponsiveness Will not give any oxycodone-Ultram seems to be doing fine Metabolic and cephalopathy is cleared No more confusion but remains very very weak and lethargic (4) History of methicillin resistant staphylococcus aureus (MRSA): Plan: Family reports chronic wounds have been associated with MRSA infection Check wound culture, MRSA nasal swab Continue Vancomycin for now Wound care consult (5) Anemia: Plan: Chronic issue Appears to be around her baseline but no recent labs in Epic (6) PAD (peripheral artery disease): Plan: Was to see vascular surgery for a second opinion as outpatient but not clear that this was ever done Pt is on warfarin due to DVT in Aug 2023 - review of outpatient records shows that INR has been persistently elevated despite warfarin being on hold. Concern for liver dysfunction raised by cheyanne mercer. Continue to hold warfarin for now but check INR daily Plan Pt seen and reviewed with collaborating physician, Dr. Stevenson. Plan of care discussed and as outlined above. Will need to delineate goals and plan of care moving forward but limited information from family and [facility] makes this difficult. Continue to try to get her records from [facility]. Code Status: Full code per pt's son DVT Prophylaxis: INR currently 2.9 - has been on chronic warfarin though currently on hold Will restart Coumadin her INR is 1.5 today Admission and Anticipated Discharge Date Admission Date: January 01, 2024 Subjective 01/02/2024 The patient was seen and examined in presence of the son in telemetry unit She has been stable this morning and has had her breakfast and ask for more pain medications due to 9 out of 10 pain She was given 5 of oxy and following that she was snoring and was difficult to a rouse She opens her eyes but does not talk remains very lethargic Hemodynamically stable with normal saturation 01/03/2024 The patient was seen and examined in telemetry unit She has been much better today Communicating normally and not in any acute distress Remains hemodynamically stable without any fever and or chills Remains generally weak and free of any pain 01/04/2024 Patient was seen and examined in telemetry unit She has been extremely lethargic and weak Still complains to have significant pain and wanted to have her MS Contin Pain is reasonably controlled with current regimen 01/05/2024 The patient was seen and examined in telemetry unit in presence of the family members She has been stable and the pain seems to be controlled Remains weak and lethargic Has been eating and drinking reasonably Has had palliative care meeting with the family this afternoon 01/06/2024 The patient was seen and examined in telemetry unit in presence of the family members She has been feeling better Wants her pain medication to be increased Denies any significant distress and her pain 01/07/2024 The patient was seen and examined in telemetry unit She has been complaining of more pain since this morning Pain seems to be in the left lateral hip area Denies any chest pain and no shortness of breath Review of Systems Review of Systems: All systems reviewed and are unremarkable except as noted below Physical Exam Physical Exam: Lying in bed without any acute distress Constitutional: + ill appearing and average body habitus Eyes: PERRL, conjunctivae normal, anicteric sclerae ENMT: external ear and nose normal, oropharynx normal Neck: trachea midline, no thyromegaly Respiratory: no respiratory distress Auscultation: + diminished lung sounds; no crackles Cardiovascular: Rate/Rhythm: regular rate and regular rhythm; not tachycardic Heart Sounds: normal S1 and normal S2; no murmur Extremities: no edema Gastrointestinal (Abdomen): Inspection/Auscultation: normal bowel sounds; abdomen not distended Percussion/Palpation: abdomen soft; abdomen nontender Musculoskeletal: No acute arthritis involving any of the joint Neurologic: moves all extremities; no focal motor deficits Lymphatic: no cervical or axillary lymphadenopathy Results & Data Results & Data Vital Signs (Past 12 Hours) Vital Signs Temp Pulse Pulse Resp BP Pulse Ox O2 Del Method 01/07/24 11:52 36.9 C 101 H 18 115/66 93 Room Air 01/07/24 07:41 37.0 C 105 H 18 122/72 93 Room Air 01/07/24 07:00 106 H 01/07/24 03:09 36.7 C 104 H 17 119/73 92 Room Air Laboratory Results Short CBC 01/07/24 Range/Units 05:26 WBC 8.33 (4.8-10.8) K/ul Hgb 8.9 L (12.0-16.0) g/dl Hct 31.0 L (37.0-47.0) % Plt Count 454 H (130-400) K/uL BMP 01/07/24 05:26 Sodium 136 Potassium 4.3 Chloride 103 Carbon Dioxide 26 BUN 10 Creatinine 0.38 L Glucose 109 H Calcium 8.5 L Medications Administered Current Inpatient Medications Amitriptyline HCl (Amitriptyline Hcl 10 Mg Tab) 10 mg PO HS ENRIQUE Stop: 02/04/24 20:59 Last Admin: 01/06/24 20:50 Dose: 10 mg Amlodipine Besylate (Amlodipine Besylate 5 Mg Tab) 10 mg PO QAM [facility] Stop: 02/01/24 08:59 Last Admin: 01/07/24 08:59 Dose: 10 mg Buspirone HCl (Buspirone 5 Mg Tab) 10 mg PO BID [facility] Stop: 01/31/24 20:59 Last Admin: 01/07/24 09:00 Dose: 10 mg Docusate Sodium (Docusate Sodium 100 Mg Cap) 100 mg PO BID [facility] Stop: 01/31/24 20:59 Last Admin: 01/07/24 09:00 Dose: 100 mg Enoxaparin Sodium (Enoxaparin Inj 60 Mg/0.6 Ml Syr) 60 mg SQ Q12H [facility] Stop: 02/05/24 20:59 Last Admin: 01/07/24 09:01 Dose: 60 mg Hydromorphone HCl (Hydromorphone Inj 0.5 Mg/0.5 Ml Syr) 0.25 mg IV Q3H PRN PRN Reason: Pain Stop: 01/21/24 09:31 Last Admin: 01/07/24 13:31 Dose: 0.25 mg Ceftriaxone Sodium 2,000 mg/ (Dextrose) 50 mls @ 100 mls/hr IV Q24H [facility]; Protocol Stop: 01/07/24 14:59 Last Infusion: 01/06/24 16:03 Dose: Infused Lidocaine (Lidocaine 5% 1 Patch) 1 patch TD [facility] Stop: 02/01/24 08:59 Last Admin: 01/07/24 09:01 Dose: 1 patch Losartan Potassium (Losartan Potassium 25 Mg Tab) 25 mg PO [facility] Stop: 02/01/24 08:59 Last Admin: 01/07/24 09:00 Dose: 25 mg Miscellaneous (Remove Lidoderm Patch) 1 each N/A DAILY@2100 [facility] Stop: 01/31/24 20:59 Last Admin: 01/06/24 20:50 Dose: 1 each Oxycodone HCl (Oxycodone Hcl Ir 5 Mg Tab (Immediate Release)) 2.5 mg PO Q3H PRN PRN Reason: Mod-Sev Pain (Scale 4-10) Stop: 01/15/24 19:23 Last Admin: 01/05/24 15:45 Dose: 5 mg Oxycodone HCl (Oxycodone Hcl Ir 5 Mg Tab (Immediate Release)) 5 mg PO Q3H PRN PRN Reason: pain breakthru Stop: 01/19/24 17:48 Last Admin: 01/07/24 12:29 Dose: 5 mg Oxycodone HCl (Oxycodone Hcl 10 Mg Tabcr (Oxycontin)) 20 mg PO Q12H [facility] Stop: 01/21/24 17:59 (1) UTI (urinary tract infection) Urinary tract infection type: catheter-associated UTI Indwelling urinary catheter type: indwelling urethral catheter Encounter type: initial encounter Qualified Code(s): T83.511A - Infection and inflammatory reaction due to indwelling urethral catheter, initial encounter; N39.0 - Urinary tract infection, site not specified (5) Anemia Anemia type: iron deficiency Iron deficiency anemia type: unspecified iron deficiency Qualified Code(s): D50.9 - Iron deficiency anemia, unspecified
[2024-01-07] MEDS: POLYETHYLENE (MIRALAX) 17 GM PACK PO SCH (16:52)
[2024-01-07] MEDS: oxyCODONE HCL 10 MG TABCR (OxyCONTIN) PO SCH (20:29)
[2024-01-07] MEDS: MICONAZOLE NITRATE POWDER 85 GM EXT PRN (20:33)
[2024-01-08] MEDS: ACETAMINOPHEN 500 MG TAB PO PRN (00:01)
[2024-01-08 06:16] LABS: Basophils # (auto) 0.05 K/uL (0.00-0.20); Basophils % (auto) 0.6 %; Eosinophils # (auto) 0.23 K/uL (0.00-0.50); Eosinophils % (auto) 2.8 %; Hematocrit (blood only) 26.4 % (37.0-47.0); Hemoglobin 7.8 g/dl (12.0-16.0); Immature Granulocytes # (auto) 0.05 K/uL (0.01-0.20); Immature Granulocytes % (auto) 0.6 %; Lymphocytes # (auto) 1.76 K/uL (1.20-3.40); Lymphocytes % (auto) 21.4 %; Mean Corpuscular Hemoglobin 23.7 pg (25.0-34.0); Mean Corpuscular Hgb Conc 29.5 g/dL (32.0-36.0); Mean Corpuscular Volume 80.2 fL (80.0-100.0); Mean Platelet Volume 9.4 fL (9.4-12.4); Monocytes # (auto) 0.82 K/uL (0.11-0.59); Neutrophils # (auto) 5.32 K/uL (1.40-6.50); Neutrophils % (auto) 64.6 %; Platelet Count 368 K/uL (130-400); RDW Coefficient of Variation 19.5 % (11.5-14.5); Red Blood Count 3.29 M/uL (4.20-5.40); White Blood Count 8.23 K/ul (4.8-10.8)
[2024-01-08 06:19] LABS: BUN Creatinine Ratio 23.8 (10-20); Calcium 8.5 mg/dl (8.6-10.3); Creatinine Clr Calc Pharmacy 104.6 ml/min; Est GFR (African American) 118.7 ml/min; Est GFR (Non-African American) 102.4 ml/min; Magnesium 1.8 mg/dl (1.7-2.4); Phosphorus 2.7 mg/dl (2.5-4.9); Potassium 4.6 mmol/L (3.5-5.1)
[2024-01-08 06:40] LABS: Polychromasia 1+
[2024-01-08] MEDS: HYDROmorphone INJ 0.5 MG/0.5 ML SYR IV PRN (10:53)
--- NOTE | 2024-01-08 16:51 | Hospitalist Progress Note ---
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 Pt has a chronic Kevin catheter for unclear reasons. Work-up in the ED appears consistent with UTI. Pt has apparently been diagnosed with new cancer of the bone in her left leg and possibly metastatic to lung but family is unclear on what the diagnosis specifically is or what the care plan/prognosis is. Will need to clarify. Catheter induced UTI with sepsis on admission Urine cultures growing gram-negative bacilli and blood cultures remains negative so far Started on intravenous ceftriaxone and vancomycin Will continue both with MRSA screen positive Blood cultures are negative Urine culture is growing Serratia marcescens which is pansensitive Clinically much better today and remains alert, awake and oriented x 3 Will continue IV ceftriaxone and vancomycin for now and likely to discontinue vancomycin from tomorrow Vancomycin has been discontinued Clinically stable without any fever and/or chills Blood cultures have been negative Clinically much better and will continue current management Severe electrolyte imbalance Secondary to sepsis and poor intake Electrolytes are improving with phosphate level remains minimally low at 1.9 Will replace intravenous phosphate today and monitor Still electrolytes remains depleted and is being supplemented Electrolytes remain depleted and will replace and monitor Electrolytes not yet corrected and she is getting replacement Advised to eat and drink more Electrolytes have been corrected-will monitor periodically Palliative care encounter Likely going to be hospice care at home following discharge Would ask for radiation oncologist for possible radiation therapy to the pelvis No chemo and/or surgery Will change the CODE STATUS to DNR and DNI Adequate pain medications will be provided Pain is not controlled and will increase pain medications to long-acting oxycodone 20 mg twice daily Intravenous Dilaudid 0.25 mg every 3 hourly was added to better control of pain Pain has been increasing and will increase Dilaudid to 0.5 mg every 8 hourly as needed Appreciate radiation therapy input and recommendation for radiation treatment (2) History of lymphosarcoma: Plan: 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 to clarify Pending review of records, consider inpatient vs. 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-- Review of outpatient records shows an US from late November showing a complex LLQ anterior abd mass so will check CT abd/pel for better evaluation Prognosis remains poor Palliative care consulted-palliative will have a meeting with the family members on Monday Palliative care will evaluate her and discussed with the family members tomorrow Appreciate palliative care input and recommendation Will ask for radiation oncology on Monday Appreciate radiation therapy input and recommendation for radiation therapy locally to improve pain History of DVT Has been on Coumadin with INR 3.3 as of 01/02/2024 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 Hold most of her narcotics and some of her sedating home medications to see if this helps with mental status. Since pt is hemodynamically stable and does have chronic pain, we will hold off on Narcan for now. Monitor mental status with treatment of infection. Will keep pt NPO until mental status improves as concern for aspiration if eating while this lethargic. For now, will use scheduled Tylenol for pt's chronic pain with low-dose oxycodone for breakthrough. Received small dose of oxycodone 5 mg this morning with 9 out of 10 pain and the patient became semiresponsive Will hold narcotic pain medications for now because of worsening lethargy and confusion and unresponsiveness Will not give any oxycodone-Ultram seems to be doing fine Metabolic and cephalopathy is cleared No more confusion but remains very very weak and lethargic (4) History of methicillin resistant staphylococcus aureus (MRSA): Plan: Family reports chronic wounds have been associated with MRSA infection Check wound culture, MRSA nasal swab Continue Vancomycin for now Wound care consult (5) Anemia: Plan: Chronic issue Appears to be around her baseline but no recent labs in [facility] (6) PAD (peripheral artery disease): Plan: Was to see vascular surgery for a second opinion as outpatient but not clear that this was ever done Pt is on warfarin due to DVT in Aug 2023 - review of outpatient records shows that INR has been persistently elevated despite warfarin being on hold. Concern for liver dysfunction raised by cheyanne mercer. Continue to hold warfarin for now but check INR daily Plan Pt seen and reviewed with collaborating physician, Dr. Stevenson. Plan of care discussed and as outlined above. Will need to delineate goals and plan of care moving forward but limited information from family and [facility] makes this difficult. Continue to try to get her records from [facility]. Code Status: Full code per pt's son DVT Prophylaxis: INR currently 2.9 - has been on chronic warfarin though currently on hold Will restart Coumadin her INR is 1.5 today Has been on Lovenox Admission and Anticipated Discharge Date Admission Date: January 01, 2024 Subjective 01/02/2024 The patient was seen and examined in presence of the son in telemetry unit She has been stable this morning and has had her breakfast and ask for more pain medications due to 9 out of 10 pain She was given 5 of oxy and following that she was snoring and was difficult to arouse She opens her eyes but does not talk remains very lethargic Hemodynamically stable with normal saturation 01/03/2024 The patient was seen and examined in telemetry unit She has been much better today Communicating normally and not in any acute distress Remains hemodynamically stable without any fever and or chills Remains generally weak and free of any pain 01/04/2024 Patient was seen and examined in telemetry unit She has been extremely lethargic and weak Still complains to have significant pain and wanted to have her MS Contin Pain is reasonably controlled with current regimen 01/05/2024 The patient was seen and examined in telemetry unit in presence of the family members She has been stable and the pain seems to be controlled Remains weak and lethargic Has been eating and drinking reasonably Has had palliative care meeting with the family this afternoon 01/06/2024 The patient was seen and examined in telemetry unit in presence of the family members She has been feeling better Wants her pain medication to be increased Denies any significant distress and her pain 01/07/2024 The patient was seen and examined in telemetry unit She has been complaining of more pain since this morning Pain seems to be in the left lateral hip area Denies any chest pain and no shortness of breath 01/08/2024 The patient was seen and examined in telemetry unit in presence of the family members She complained of more pain left hip area Her Dilaudid was increased to 0.5 mg every 8 hourly as needed She denies any other significant symptoms Review of Systems Review of Systems: All systems reviewed and are unremarkable except as noted below Physical Exam Physical Exam: Lying in bed without any acute distress Constitutional: + ill appearing and average body habitus Eyes: PERRL, conjunctivae normal, anicteric sclerae ENMT: external ear and nose normal, oropharynx normal Neck: trachea midline, no thyromegaly Respiratory: no respiratory distress Auscultation: + diminished lung sounds; no crackles Cardiovascular: Rate/Rhythm: regular rate and regular rhythm; not tachycardic Heart Sounds: normal S1 and normal S2; no murmur Extremities: no edema Gastrointestinal (Abdomen): Inspection/Auscultation: normal bowel sounds; abdomen not distended Percussion/Palpation: abdomen soft; abdomen nontender Musculoskeletal: Painful movement of the left hip Neurologic: moves all extremities; no focal motor deficits Lymphatic: no cervical or axillary lymphadenopathy Results & Data Results & Data Vital Signs (Past 12 Hours) Vital Signs Temp Pulse Pulse Resp BP Pulse Ox O2 Del Method 01/08/24 15:32 101 H 01/08/24 15:20 36.6 C 100 H 20 129/67 92 Room Air 01/08/24 08:00 Room Air 01/08/24 07:58 88 01/08/24 07:20 36.7 C 99 H 17 132/72 93 Room Air Laboratory Results Short CBC 01/08/24 Range/Units 05:24 WBC 8.23 (4.8-10.8) K/ul Hgb 7.8 L (12.0-16.0) g/dl Hct 26.4 L (37.0-47.0) % Plt Count 368 (130-400) K/uL BMP 01/08/24 05:24 Sodium 135 L Potassium 4.6 Chloride 102 Carbon Dioxide 27 BUN 10 Creatinine 0.42 L Glucose 104 H Calcium 8.5 L Medications Administered Current Inpatient Medications Acetaminophen (Acetaminophen 500 Mg Tab) 500 mg PO Q6H PRN PRN Reason: Pain or Fever Stop: 02/06/24 23:08 Last Admin: 01/08/24 08:14 Dose: 500 mg Amitriptyline HCl (Amitriptyline Hcl 10 Mg Tab) 10 mg PO [facility] Stop: 02/04/24 20:59 Last Admin: 01/07/24 20:30 Dose: 10 mg Amlodipine Besylate (Amlodipine Besylate 5 Mg Tab) [facility] Stop: 02/01/24 08:59 Last Admin: 01/08/24 08:56 Dose: 10 mg Buspirone HCl (Buspirone 5 Mg Tab) 10 mg PO BID [facility] Stop: 01/31/24 20:59 Last Admin: 01/08/24 08:56 Dose: 10 mg Docusate Sodium (Docusate Sodium 100 Mg Cap) 100 mg PO BID [facility] Stop: 01/31/24 20:59 Last Admin: 01/08/24 08:58 Dose: 100 mg Enoxaparin Sodium (Enoxaparin Inj 60 Mg/0.6 Ml Syr) 60 mg SQ Q12H [facility] Stop: 02/05/24 20:59 Last Admin: 01/08/24 08:58 Dose: 60 mg Hydromorphone HCl (Hydromorphone Inj 0.5 Mg/0.5 Ml Syr) 0.5 mg IV Q3H PRN PRN Reason: Pain Stop: 01/21/24 09:31 Last Admin: 01/08/24 14:09 Dose: 0.5 mg Lidocaine (Lidocaine 5% 1 Patch) 1 patch TD [facility] Stop: 02/01/24 08:59 Last Admin: 01/08/24 10:53 Dose: Not Given Losartan Potassium (Losartan Potassium 25 Mg Tab) 25 mg PO [facility] Stop: 02/01/24 08:59 Last Admin: 01/08/24 08:55 Dose: 25 mg Miconazole Nitrate (Miconazole Nitrate Powder 85 Gm) 1 appln EXT PRN PRN PRN Reason: Affected Skin Folds Stop: 02/06/24 18:15 Last Admin: 01/07/24 20:33 Dose: 1 appln Miscellaneous (Remove Lidoderm Patch) 1 each N/A DAILY@2100 [facility] Stop: 01/31/24 20:59 Last Admin: 01/07/24 20:30 Dose: 1 each Oxycodone HCl (Oxycodone Hcl Ir 5 Mg Tab (Immediate Release)) 2.5 mg PO Q3H PRN PRN Reason: Mod-Sev Pain (Scale 4-10) Stop: 01/15/24 19:23 Last Admin: 01/05/24 15:45 Dose: 5 mg Oxycodone HCl (Oxycodone Hcl Ir 5 Mg Tab (Immediate Release)) 5 mg PO Q3H PRN PRN Reason: pain breakthru Stop: 01/19/24 17:48 Last Admin: 01/08/24 12:41 Dose: 5 mg Oxycodone HCl (Oxycodone Hcl 10 Mg Tabcr (Oxycontin)) 20 mg PO Q12H [facility] Stop: 01/21/24 17:59 Last Admin: 01/08/24 05:26 Dose: 20 mg Polyethylene Glycol (Polyethylene (Miralax) 17 Gm Pack) 17 gm PO DAILY [facility] Stop: 02/06/24 15:59 Last Admin: 01/08/24 09:25 Dose: Not Given (1) UTI (urinary tract infection) Urinary tract infection type: catheter-associated UTI Indwelling urinary catheter type: indwelling urethral catheter Encounter type: initial encounter Qualified Code(s): T83.511A - Infection and inflammatory reaction due to indwelling urethral catheter, initial encounter; N39.0 - Urinary tract infection, site not specified (5) Anemia Anemia type: iron deficiency Iron deficiency anemia type: unspecified iron deficiency Qualified Code(s): D50.9 - Iron deficiency anemia, unspecified
[2024-01-09] MEDS: ONDANSETRON INJ 2 MG/ML 2 ML VIAL IV STA (06:38)
--- NOTE | 2024-01-09 10:21 | Radiation Oncology Progress Nt ---
Date of Service January 09, 2024 Assessment & Plan (1) Cancer related pain: (2) Liposarcoma of left lower extremity: Plan Assessment: Ms. Estrada is a 73-year-old female who presents with unresectable noncurable liposarcoma of the pelvis. Of note, the patient did have previous radiation therapy at an outside facility in 1989 related to this cancer for which there are no available records. The patient believes that her radiation therapy was to the pelvis where she is currently having symptoms involving her large pelvic mass. The patient has been admitted to the hospital for pain control. At this point, the patient has refused treatment options including s urgery and chemotherapy. The patient has been seen by palliative care medicine and the patient has ultimately elected to undergo hospice care after discharge from the hospital. We were requested to see the patient in consultation regarding the role of palliative radiation therapy. The patient agreed to a short course of palliative radiation therapy. The patient was brought down today for CT simulation. She could not tolerate CT simulation. Recommendation: I attempted to offer multiple options to make the patient more comfortable get through CT simulation including getting more pain medication prior to the procedure. The patient has declined further attempts at CT simulation and radiation therapy in general. Plan: 1. Patient has declined radiation therapy. 2. Continue pain management as per primary medical team. 3. Plan for hospice after discharge. 4. Radiation oncology will sign off patient's case. Please call with any f urther questions or concerns. Admission and Anticipated Discharge Date Admission Date: January 01, 2024 Subjective This is a 73-year-old white female with a known history of liposarcoma of the left lower extremity. She underwent a above-knee amputation in 1989. This was followed by radiation therapy. She recalls 33 fractions of treatment. These were given at [facility] in [place]. She did not require any chemotherapy. She has not had follow-up in the past several years with medical oncology or radiation oncology. Over the past several months she has developed increasing pain of the pelvis. This especially on the left side. Pain level can be up to a 9 out of 10. As an outpatient she had prescriptions for oxycodone 10 mg extended release twice daily and hydrocodone APAP 5-325. 1 tablet twice daily as needed pain. Patient was brought to the emergency room due to lethargy and confusion. She is diagnosed with urinary tract infection. She has improved cognitively after receiving treatment for the urinary tract infection. She underwent imaging of the head as well as abdomen and pelvis. 01/01/2024. CT of the head. No acute intracranial abnormality. 01/01/2024. CT of the abdomen and pelvis. 1. There is a large mixed cystic and solid and partially calcified mass within the left hemipelvis as above encasing the left pelvic musculature and left hemipelvis with osseous lytic erosion of the sacrum and left iliac bone overall measuring up to approximately 21 cm. An indeterminate malignancy would be the differential of exclusion. Follow-up with oncology is needed. 2. Bilateral nephrolithiasis with calculi within the bilateral renal pelves. Mild left-sided hydroureteronephrosis with urothelial thickening is likely secondary to distal ureteral obstruction from the large pelvic mass. 3. No bowel obstruction. 4. Prior left-sided colonic resection with right lower quadrant ostomy and peristomal hernia redemonstrated. 5. 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 01/08/2024. Radiation oncology consultation. The patient has declined any surgical interventions as well as chemotherapy. She has stated that in the future she plans to go home on hospice. She was in agreement to a radiation oncology consultation and evaluation for possible palliative treatment to the large pelvic mass which has caused destructive changes to the left iliac bone and sacrum. Radiation History Diagnosis: 1989. Liposarcoma. Pelvis vs left lower extremity? Treatment: 1989. Status post left leg above-knee amputation followed by radiation therapy. She had received 33 fractions of treatment at [facility] in [place]. Patient recalls radiation therapy delivered to pelvis but no documentation available. Results & Data Vital Signs (Past 12 Hours) Vital Signs Temp Pulse Pulse Resp BP Pulse Ox O2 Del Method 01/09/24 07:59 117 H 01/09/24 07:42 37.1 C 108 H 20 155/75 H 94 Room Air 01/09/24 02:52 36.6 C 100 H 18 130/69 94 Room Air 01/08/24 22:44 36.6 C 99 H 18 120/62 94 Room Air 01/08/24 22:35 Room Air PG Care Time/CCT Total # of Minutes Spent Total Time Spent: 10 Total Time Spent with Patient: Total time spent is greater than 50% in coordination of care (as documented) at patient's floor/unit and/or counseling patient: Coding Level of Care Code 68836 SUB INP/OBS CARE 10/19MIN Diagnoses Cancer related pain G89.3 Liposarcoma of left lower extremity C49.22
[2024-01-09 10:43] LABS: BUN Creatinine Ratio 21.1 (10-20); Calcium 8.8 mg/dl (8.6-10.3); Creatinine Clr Calc Pharmacy 115.6 ml/min; Est GFR (African American) 122.7 ml/min; Est GFR (Non-African American) 105.8 ml/min; Magnesium 1.6 mg/dl (1.7-2.4); Phosphorus 2.9 mg/dl (2.5-4.9); Potassium 3.9 mmol/L (3.5-5.1)
[2024-01-09 11:04] LABS: Basophils # (auto) 0.06 K/uL (0.00-0.20); Basophils % (auto) 0.5 %; Eosinophils # (auto) 0.05 K/uL (0.00-0.50); Eosinophils % (auto) 0.4 %; Hematocrit (blood only) 29.7 % (37.0-47.0); Hemoglobin 8.9 g/dl (12.0-16.0); Immature Granulocytes # (auto) 0.06 K/uL (0.01-0.20); Immature Granulocytes % (auto) 0.5 %; Lymphocytes # (auto) 1.29 K/uL (1.20-3.40); Lymphocytes % (auto) 11.1 %; Mean Corpuscular Hemoglobin 23.6 pg (25.0-34.0); Mean Corpuscular Volume 78.8 fL (80.0-100.0); Mean Platelet Volume 9.2 fL (9.4-12.4); Monocytes # (auto) 0.81 K/uL (0.11-0.59); Neutrophils # (auto) 9.35 K/uL (1.40-6.50); Neutrophils % (auto) 80.5 %; Platelet Count 465 K/uL (130-400); RDW Coefficient of Variation 19.5 % (11.5-14.5); RDW Standard Deviation 54.3 fL (36.4-46.3); Red Blood Count 3.77 M/uL (4.20-5.40); White Blood Count 11.62 K/ul (4.8-10.8)
--- NOTE | 2024-01-09 17:54 | Hospitalist Progress Note ---
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 Pt has a chronic Kevin catheter for unclear reasons. Work-up in the ED appears consistent with UTI. Pt has apparently been diagnosed with new cancer of the bone in her left leg and possibly metastatic to lung but family is unclear on what the diagnosis specifically is or what the care plan/prognosis is. Will need to clarify. Catheter induced UTI with sepsis on admission Urine cultures growing gram-negative bacilli and blood cultures remains negative so far Started on intravenous ceftriaxone and vancomycin Will continue both with MRSA screen positive Blood cultures are negative Urine culture is growing Serratia marcescens which is pansensitive Clinically much better today and remains alert, awake and oriented x 3 Will continue IV ceftriaxone and vancomycin for now and likely to discontinue vancomycin from tomorrow Vancomycin has been discontinued Clinically stable without any fever and/or chills Blood cultures have been negative Clinically much better and will continue current management Will continue current IV antibiotic and can be changed to oral on discharge for a total of 10 days Severe electrolyte imbalance Secondary to sepsis and poor intake Electrolytes are improving with phosphate level remains minimally low at 1.9 Will replace intravenous phosphate today and monitor Still electrolytes remains depleted and is being supplemented Electrolytes remain depleted and will replace and monitor Electrolytes not yet corrected and she is getting replacement Advised to eat and drink more Electrolytes have been corrected-will monitor periodically Electrolytes are normal now and was advised to eat and drink little bit more Palliative care encounter Likely going to be hospice care at home following discharge Would ask for radiation oncologist for possible radiation therapy to the pelvis No chemo and/or surgery Will change the CODE STATUS to DNR and DNI Adequate pain medications will be provided Pain is not controlled and will increase pain medications to long-acting oxycodone 20 mg twice daily Intravenous Dilaudid 0.25 mg every 3 hourly was added to better control of pain Pain has been increasing and will increase Dilaudid to 0.5 mg every 8 hourly as needed Appreciate radiation therapy input and recommendation for radiation treatment Discussed with the patient about hospice care at home-she has hospital bed at home and other equipments to continue with the care Will discuss with the daughter and ask for hospice evaluation in the hospital (2) History of lymphosarcoma: Plan: 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 to clarify Pending review of records, consider inpatient vs. 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-- Review of outpatient records shows an US from late November showing a complex LLQ anterior abd mass so will check CT abd/pel for better evaluation Prognosis remains poor Palliative care consulted-palliative will have a meeting with the family members on Monday Palliative care will evaluate her and discussed with the family members tomorrow Appreciate palliative care input and recommendation Will ask for radiation oncology on Monday Appreciate radiation therapy input and recommendation for radiation therapy locally to improve pain Pain has been worse and she refused to have any radiation Long-acting oxycodone has been increased to 30 mg twice daily Will have short acting for breakthrough pain History of DVT Has been on Coumadin with INR 3.3 as of 01/02/2024 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 Hold most of her narcotics and some of her sedating home medications to see if this helps with mental status. Since pt is hemodynamically stable and does have chronic pain, we will hold off on Narcan for now. Monitor mental status with treatment of infection. Will keep pt NPO until mental status improves as concern for aspiration if eating while this lethargic. For now, will use scheduled Tylenol for pt's chronic pain with low-dose oxycodone for breakthrough. Received small dose of oxycodone 5 mg this morning with 9 out of 10 pain and the patient became semiresponsive Will hold narcotic pain medications for now because of worsening lethargy and confusion and unresponsiveness Will not give any oxycodone-Ultram seems to be doing fine Metabolic and cephalopathy is cleared No more confusion but remains very very weak and lethargic She is cleared of any encephalopathy (4) History of methicillin resistant staphylococcus aureus (MRSA): Plan: Family reports chronic wounds have been associated with MRSA infection Check wound culture, MRSA nasal swab Continue Vancomycin for now Wound care consult (5) Anemia: Plan: Chronic issue Appears to be around her baseline but no recent labs in [facility] (6) PAD (peripheral artery disease): Plan: Was to see vascular surgery for a second opinion as outpatient but not clear that this was ever done Pt is on warfarin due to DVT in Aug 2023 - review of outpatient records shows that INR has been persistently elevated despite warfarin being on hold. Concern for liver dysfunction raised by cheyanne mercer. Continue to hold warfarin for now but check INR daily Plan Pt seen and reviewed with collaborating physician, Dr. Stevenson. Plan of care discussed and as outlined above. Will need to delineate goals and plan of care moving forward but limited information from family and [facility] makes this difficult. Continue to try to get her records from [facility]. Code Status: Full code per pt's son DVT Prophylaxis: INR currently 2.9 - has been on chronic warfarin though currently on hold Will restart Coumadin her INR is 1.5 today Has been on Lovenox Likely discharge home with hospice Admission and Anticipated Discharge Date Admission Date: January 01, 2024 Subjective 01/02/2024 The patient was seen and examined in presence of the son in telemetry unit She has been stable this morning and has had her breakfast and ask for more pain medications due to 9 out of 10 pain She was given 5 of oxy and following that she was snoring and was difficult to arouse She opens her eyes but does not talk remains very lethargic Hemodynamically stable with normal saturation 01/03/2024 The patient was seen and examined in telemetry unit She has been much better today Communicating normally and not in any acute distress Remains hemodynamically stable without any fever and or chills Remains generally weak and free of any pain 01/04/2024 Patient was seen and examined in telemetry unit She has been extremely lethargic and weak Still complains to have significant pain and wanted to have her MS Contin Pain is reasonably controlled with current regimen 01/05/2024 The patient was seen and examined in telemetry unit in presence of the family members She has been stable and the pain seems to be controlled Remains weak and lethargic Has been eating and drinking reasonably Has had palliative care meeting with the family this afternoon 01/06/2024 The patient was seen and examined in telemetry unit in presence of the family members She has been feeling better Wants her pain medication to be increased Denies any significant distress and her pain 01/07/2024 The patient was seen and examined in telemetry unit She has been complaining of more pain since this morning Pain seems to be in the left lateral hip area Denies any chest pain and no shortness of breath 01/08/2024 The patient was seen and examined in telemetry unit in presence of the family members She complained of more pain left hip area Her Dilaudid was increased to 0.5 mg every 8 hourly as needed She denies any other significant symptoms 01/09/2024 The patient was seen and examined in telemetry unit She refused to have any radiation treatment Complains to have more pain and wants to have more pain medications She denies any other significant symptoms except weakness Has been trying to eat and drink as much as she can Review of Systems Review of Systems: All systems reviewed and are unremarkable except as noted below Physical Exam Physical Exam: Lying in bed without any acute distress Constitutional: + ill appearing and average body habitus Eyes: PERRL, conjunctivae normal, anicteric sclerae ENMT: external ear and nose normal, oropharynx normal Neck: trachea midline, no thyromegaly Respiratory: no respiratory distress Auscultation: + diminished lung sounds; no crackles Cardiovascular: Rate/Rhythm: regular rate and regular rhythm; not tachycardic Heart Sounds: normal S1 and normal S2; no murmur Extremities: no edema Gastrointestinal (Abdomen): Inspection/Auscultation: normal bowel sounds; abdomen not distended Percussion/Palpation: abdomen soft; abdomen nontender Musculoskeletal: No acute arthritis in any joint Neurologic: moves all extremities; no focal motor deficits Lymphatic: no cervical or axillary lymphadenopathy Results & Data Results & Data Vital Signs (Past 12 Hours) Vital Signs Temp Pulse Pulse Resp BP Pulse Ox O2 Del Method 01/09/24 16:27 105 H 01/09/24 15:39 36.5 C 101 H 20 134/70 96 Room Air 01/09/24 12:13 36.9 C 102 H 20 120/72 95 Room Air 01/09/24 10:17 Room Air 01/09/24 07:59 117 H 01/09/24 07:42 37.1 C 108 H 20 155/75 H 94 Room Air Laboratory Results Short CBC 01/09/24 Range/Units 09:34 WBC 11.62 H (4.8-10.8) K/ul Hgb 8.9 L (12.0-16.0) g/dl Hct 29.7 L (37.0-47.0) % Plt Count 465 H (130-400) K/uL BMP 01/09/24 09:34 Sodium 130 L Potassium 3.9 Chloride 93 L Carbon Dioxide 25 BUN 8 Creatinine 0.38 L Glucose 146 H Calcium 8.8 Medications Administered Current Inpatient Medications Acetaminophen (Acetaminophen 500 Mg Tab) 500 mg PO Q6H PRN PRN Reason: Pain or Fever Stop: 02/06/24 23:08 Last Admin: 01/08/24 19:07 Dose: 500 mg Amitriptyline HCl (Amitriptyline Hcl 10 Mg Tab) 10 mg PO HS ENRIQUE Stop: 02/04/24 20:59 Last Admin: 01/08/24 20:26 Dose: 10 mg Amlodipine Besylate (Amlodipine Besylate 5 Mg Tab) 10 mg PO QAM ENRIQUE Stop: 02/01/24 08:59 Last Admin: 01/09/24 08:33 Dose: 10 mg Buspirone HCl (Buspirone 5 Mg Tab) 10 mg PO BID ENRIQUE Stop: 01/31/24 20:59 Last Admin: 01/09/24 08:33 Dose: 10 mg Docusate Sodium (Docusate Sodium 100 Mg Cap) 100 mg PO BID ENRIQUE Stop: 01/31/24 20:59 Last Admin: 01/09/24 08:32 Dose: 100 mg Enoxaparin Sodium (Enoxaparin Inj 60 Mg/0.6 Ml Syr) 60 mg SQ Q12H ENRIQUE Stop: 02/05/24 20:59 Last Admin: 01/09/24 08:33 Dose: 60 mg Hydromorphone HCl (Hydromorphone Inj 0.5 Mg/0.5 Ml Syr) 0.5 mg IV Q3H PRN PRN Reason: Pain Stop: 01/21/24 09:31 Last Admin: 01/09/24 13:09 Dose: 0.5 mg Lidocaine (Lidocaine 5% 1 Patch) [facility] Stop: 02/01/24 08:59 Last Admin: 01/09/24 08:31 Dose: 1 patch Losartan Potassium (Losartan Potassium 25 Mg Tab) [facility] Stop: 02/01/24 08:59 Last Admin: 01/09/24 08:33 Dose: 25 mg Miconazole Nitrate (Miconazole Nitrate Powder 85 Gm) 1 appln EXT PRN PRN PRN Reason: Affected Skin Folds Stop: 02/06/24 18:15 Last Admin: 01/08/24 21:26 Dose: 1 appln Miscellaneous (Remove Lidoderm Patch) 1 each N/A DAILY@2100 [facility] Stop: 01/31/24 20:59 Last Admin: 01/08/24 20:30 Dose: 1 each Oxycodone HCl (Oxycodone Hcl Ir 5 Mg Tab (Immediate Release)) 2.5 mg PO Q3H PRN PRN Reason: Mod-Sev Pain (Scale 4-10) Stop: 01/15/24 19:23 Last Admin: 01/05/24 15:45 Dose: 5 mg Oxycodone HCl (Oxycodone Hcl Ir 5 Mg Tab (Immediate Release)) 5 mg PO Q3H PRN PRN Reason: pain breakthru Stop: 01/19/24 17:48 Last Admin: 01/09/24 16:37 Dose: 5 mg Oxycodone HCl (Oxycodone Hcl 15 Mg Tabcr (Oxycontin)) 30 mg PO Q12H [facility] Stop: 01/21/24 17:59 Polyethylene Glycol (Polyethylene (Miralax) 17 Gm Pack) 17 gm PO DAILY [facility] Stop: 02/06/24 15:59 Last Admin: 01/09/24 08:32 Dose: 17 gm (1) UTI (urinary tract infection) Urinary tract infection type: catheter-associated UTI Indwelling urinary catheter type: indwelling urethral catheter Encounter type: initial encounter Qualified Code(s): T83.511A - Infection and inflammatory reaction due to indwelling urethral catheter, initial encounter; N39.0 - Urinary tract infection, site not specified (5) Anemia Anemia type: iron deficiency Iron deficiency anemia type: unspecified iron deficiency Qualified Code(s): D50.9 - Iron deficiency anemia, unspecified
[2024-01-09] MEDS: oxyCODONE HCL 15 MG TABCR (OxyCONTIN) PO SCH (17:55)
[2024-01-09] MEDS: ONDANSETRON INJ 2 MG/ML 2 ML VIAL ONE (18:21)
[2024-01-09] MEDS: ONDANSETRON INJ 2 MG/ML 2 ML VIAL IV SCH (18:44)
[2024-01-10] MEDS: oxyCODONE HCL IR 5 MG TAB (IMMEDIATE RELEASE) PO PRN (13:43)
[2024-01-10] MEDS: oxyCODONE HCL 15 MG TABCR (OxyCONTIN) PO SCH (13:54)
[2024-01-10 14:56] LABS: Basophils # (auto) 0.03 K/uL (0.00-0.20); Basophils % (auto) 0.3 %; Eosinophils # (auto) 0.13 K/uL (0.00-0.50); Eosinophils % (auto) 1.3 %; Hematocrit (blood only) 26.1 % (37.0-47.0); Hemoglobin 8.1 g/dl (12.0-16.0); Immature Granulocytes # (auto) 0.03 K/uL (0.01-0.20); Immature Granulocytes % (auto) 0.3 %; Lymphocytes # (auto) 1.58 K/uL (1.20-3.40); Lymphocytes % (auto) 16.1 %; Mean Corpuscular Hemoglobin 24.2 pg (25.0-34.0); Mean Corpuscular Volume 77.9 fL (80.0-100.0); Mean Platelet Volume 9.4 fL (9.4-12.4); Monocytes # (auto) 0.92 K/uL (0.11-0.59); Monocytes % (auto) 9.4 %; Neutrophils # (auto) 7.14 K/uL (1.40-6.50); Neutrophils % (auto) 72.6 %; Platelet Count 411 K/uL (130-400); RDW Coefficient of Variation 19.3 % (11.5-14.5); RDW Standard Deviation 53.4 fL (36.4-46.3); Red Blood Count 3.35 M/uL (4.20-5.40); White Blood Count 9.83 K/ul (4.8-10.8)
[2024-01-10 15:11] LABS: BUN Creatinine Ratio 21.1 (10-20); Calcium 8.6 mg/dl (8.6-10.3); Creatinine Clr Calc Pharmacy 115.6 ml/min; Est GFR (African American) 122.7 ml/min; Est GFR (Non-African American) 105.8 ml/min; Magnesium 1.6 mg/dl (1.7-2.4); Potassium 4.2 mmol/L (3.5-5.1)
[2024-01-10 15:27] LABS: Prothrombin Time 11.1 Seconds (9.0-12.0)
--- NOTE | 2024-01-10 18:31 | Hospitalist Progress Note ---
Date of Service January 10, 2024 Assessment & Plan (1) UTI (urinary tract infection): Plan: Catheter associated UTI due to Serratia-completed 6 days of Rocephin 01/05. Remains afebrile and clinically stable with no urinary symptoms. Leukocytosis is resolved Hyponatremia-will start on gentle IVF and recheck in a.m. Recurrent liposarcoma-patient refused further treatment options including surgery chemo and declined even palliative radiation yesterday. Seen by palliative. Plan to go on home hospice. Hospice to evaluate the patient. CT abdomen pelvis shows a large mixed cystic and solid and partially calcified mass within the left hemipelvis as above encasing the left pelvic musculature and left hemipelvis with osseous lytic erosion of the sacrum and left iliac bone overall measuring up to approximately 21 cm. An indeterminate malignancy would be the differential of exclusion. Follow-up with oncology is needed. Cancer-related pain-pain medicine adjusted by palliative today. Will follow for better pain control DVT- CT shows extensive DVT with extension into IVC, this was despite being on Coumadin. She has been on therapeutic Lovenox. After detailed discussions at bedside, she does not want to be on anticoagulation at discharge. Metabolic encephalopathy on admission-likely due to UTI. Currently resolved DVT prophylaxis-therapeutic Lovenox Disposition-plan to discharge home on home hospice when arrangements made Time spent-approximately 50 minutes Plan c Admission and Anticipated Discharge Date Admission Date: January 01, 2024 Subjective Patient was seen and examined at bedside. She does not remember me from the ED visit. Complains of pain and this was already adjusted by palliative. Palliative also did not recommend any anticoagulation at discharge. I spoke to the patient regarding this. Patient is currently on Lovenox but palliative did not recommend that at discharge as she is going on hospice. Also continue Coumadin will be riskier as well with no labs and there is increased risk for bleeding due to supratherapeutic INR without monitoring. Did discuss that her clots might progress and might lead to pulmonary embolism and hypoxemia however she will have all the medications to help with her breathing and she will not be in any distress. Patient did not want to continue anticoagulation at discharge. No fever, chills, chest pain, shortness of breath. Review of Systems Review of Systems: All systems reviewed & are unremarkable except as noted in Subjective Physical Exam Physical Exam: General: Awake, alert, not in acute distress, on room air HEENT: [place] Chest: Fair breath sounds anteriorly, no wheezes or crackles CVS: Regular rate and rhythm, normal heart sounds, no murmur Abdomen: Soft, tenderness left lower quadrant, colostomy with stool, normal bowel sounds Neuro: Lethargic, arousable to verbal stimuli, answers basic questions, AAOx1 Extremities: Left AKA with stump wrapped Kevin with clear urine Results & Data Results & Data Vital Signs (Past 12 Hours) Vital Signs Temp Pulse Pulse Resp BP Pulse Ox O2 Del Method 01/10/24 15:19 94 H 01/10/24 15:04 37.5 C 89 18 120/67 94 Room Air 01/10/24 11:25 36.7 C 95 H 17 111/64 95 Room Air 01/10/24 09:40 Room Air 01/10/24 08:35 166 H 01/10/24 07:11 37.1 C 101 H 16 134/59 L 93 Room Air (1) UTI (urinary tract infection) Urinary tract infection type: catheter-associated UTI Indwelling urinary catheter type: indwelling urethral catheter Encounter type: initial encounter Qualified Code(s): T83.511A - Infection and inflammatory reaction due to indwelling urethral catheter, initial encounter; N39.0 - Urinary tract infection, site not specified
[2024-01-10] MEDS: HYDROmorphone INJ 0.5 MG/0.5 ML SYR IV PRN (18:53)
[2024-01-10] MEDS: SODIUM CHLORIDE 0.9% 1,000 ML IV SCH (19:30)
[2024-01-10] MEDS: MAGNESIUM SULFATE / D5W 1 GM/100 ML BAG IV ONE (19:30)
--- NOTE | 2024-01-10 20:14 | Palliative Care Progress Note ---
Date of Service January 10, 2024 Assessment & Plan (1) Cancer related pain: Plan: She is using total of 113 oral oxycodone equivalents per day (combination of her OxyContin plus oxyIR plus IV Dilaudid) and without good relief. She has end of dose failure by hour 6-7. I am increasing her to OxyContin 30mg q8h which brings her to 90mg daily in long acting and I increased OxyIR to 10mg po q3h prn breakthrough pain and modified dilaudid to q4h very severe pain unrelieved by oral meds. I discussed all of this with her. She wants to try prn Ativan for insomnia which Alisia ordered. She also is willing to complete course of abtx orally at home if needed and is ok stopping blood thinners. 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 She is ok stopping lovenox and would be willing to finish course of ABtx PO at home if needed Thank you for allowing us to participate in the ongoing care of this patient. Please don't hesitate to call or page with any additional concerns. Dr. Noelle Nava DNP Director, Palliative Care Admission and Anticipated Discharge Date Admission Date: January 01, 2024 Teresa Veras is seen at lunchtime She tells me her pain is not well controlled She is also not happy with the food She could not tolerate positioning for RT and ultimately decided to forego it She is asking for improved pain mgt She states the OxyContin wears off by hour 6-7 She is using both Oxy IR and IV Dilaudid prn for BTP Review of Systems Review of Systems: All systems reviewed & are unremarkable except as noted in Subjective Physical Exam Constitutional: + ill appearing, + thin, + frail appeari ng and + lethargic Eyes: PERRL ENMT: dentition fair, mm dry Neck: no stridor Respiratory: mild inc effort with use of accessory muscles diminished bilat no wheeze, faint crackles Cardiovascular: s1s2 Gastrointestinal (Abdomen): scaphoid, NTP, BS diminished Musculoskeletal: Left BKA, +wound dressing RLE pale, warm, venous insuff changes with heel wound noted Skin: pale Neurologic: AAOx3 Results & Data Vital Signs (Past 12 Hours) Vital Signs Temp Pulse Pulse Resp BP Pulse Ox O2 Del Method 01/10/24 19:17 36.6 C 83 20 104/64 94 Room Air 01/10/24 15:19 94 H 01/10/24 15:04 37.5 C 89 18 120/67 94 Room Air 01/10/24 11:25 36.7 C 95 H 17 111/64 95 Room Air 01/10/24 09:40 Room Air 01/10/24 08:35 166 H Laboratory Results Most recent lab results Calcium 8.6 mg/dl (8.6-10.3) 01/10/24 14:21 Phosphorus 2.9 mg/dl (2.5-4.9) 01/09/24 09:34 Magnesium 1.6 mg/dl (1.7-2.4) L 01/10/24 14:21 Diagnostic Findings Chest X-Ray 01/01/24 14:08 XR chest 1V portable HISTORY: 73 years-old Female Sepsis COMPARISON: 01/10/2022 TECHNIQUE: AP view of the chest FINDINGS: Cardiomediastinal and hilar silhouettes are within normal limits. No pneumothorax, pleural effusion or airspace consolidation. No overt pulmonary edema. Cholecystectomy. Lumbar spinal fusion hardware. Degenerative changes of the shoulders and spine. IMPRESSION: No acute process. ACT 112: Negative or not required by law. The above report was generated using voice recognition software. It may contain grammatical, syntax or spelling errors. Electronically signed by: Michael Kilpatrick M.D. 01/01/2024 3:[address] 01/01/24 14:[address] DOSE: 625.8 mGy.cm HISTORY: Altered mental status. TECHNIQUE: Multiaxial CT images of the head were performed without the use of intravenous contrast. Automated exposure control was utilized for this study. A dose lowering technique was utilized adhering to the principles of ALARA. Comparison: None. Findings: The paranasal sinuses and mastoid air cells are clear. The calvarium and skull base are intact. There is no mass, hematoma, midline shift, acute infarct. White matter hypodensity is nonspecific but suggestive of microvascular ischemic change. The ventricles and sulci demonstrate mild age-related involutional changes. Impression: No acute intracranial abnormality. ACT 112: Negative or not required by law. Electronically signed by: Akash Gross M.D. 01/01/2024 2:57 PM Abdomen/Pelvis CT 01/01/24 17:[address] WITH IV CONTRAST CT DOSE: 1180.16 mGy.cm HISTORY: Acute left lower quadrant abdominal pain . Prior left-sided colonic resection with right lower quadrant ostomy. LLQ anterior abd complex lesion US 12/21 TECHNIQUE: Multiaxial CT images of the abdomen and pelvis were performed following the IV administration of 92 cc of Optiray, A dose lowering technique was utilized adhering to the principles of ALARA. COMPARISON STUDY: CT abdomen and pelvis 12/31/2021, femur radiographs 07/21/2023, 03/03/2021, CT left hip 10/29/2020 FINDINGS: Cardiomegaly with coronary arterial calcifications. Mild dependent subsegmental bibasilar atelectasis. Right hemidiaphragmatic elevation. No free air identified. Unremarkable spleen, pancreas and adrenal glands. Cholecyst ectomy with likely postsurgical pneumobilia. The liver is otherwise unremarkable. There is patency of the hepatic and portal veins. Cortical scarring of the superior to mid pole right kidney. Bilateral nonobstructing renal calculi measuring up to 12 mm on the right. 1.5 cm calculus in the dependent left renal pelvis. There is layering debris versus calcifications within the dependent right renal pelvis. There is mild left-sided hydroureteronephrosis with urothelial thickening, likely secondary to distal obstruction secondary to a large pelvic mass as below. Atherosclerosis of the aorta. Expansile thrombus is noted within the infrarenal IVC and also within the bilateral common iliac veins. There is also thrombus in the left internal and external iliac veins and also possibly within the left femoral vein. 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 No definite lymphadenopathy. Urinary bladder wall thickening with Kevin catheter. Air is also present within the urinary bladder lumen. Circumferential wall thickening of the rectosigmoid. Additional wall thickening of the cecum. There is a large cystic mass centered within the left hemipelvis encasing the left iliac bone and sacrum with involvement of the left psoas, iliopsoas, iliacus, gluteal, obturator internus and proximal thigh musculature. The mass contains marginal calcifications and overall measures approximately 15 x 15 x 21 cm. 3.27 m subcutaneous nodules in the left anterior abdominal wall. Areas of loculated fluid versus hypodense mesenteric nodules noted within the abdominal flow or quadrant. The mass extends into the left lateral abdominal wall. Lucent/osteolytic bony destruction is noted within portions of the left sacrum and iliac bone. Heterogeneous sclerotic appearance of the left hemipelvis and left proximal femur is a chronic finding. Chronic left proximal femoral fixated fracture deformity. Postoperative changes of the lumbar spine. Prior left-sided colonic resection with right lower quadrant ostomy and bowel- containing parastomal hernia redemonstrated. Additionally, there is a periumbilical hernia with diastases of 7.8 cm containing mesenteric fat and nonobstructed bowel. IMPRESSION: 1. There is a large mixed cystic and solid and partially calcified mass within the left hemipelvis as above encasing the left pelvic musculature and left hemipelvis with osseous lytic erosion of the sacrum and left iliac bone overall measuring up to approximately 21 cm. An indeterminate malignancy would be the differential of exclusion. Follow-up with oncology is needed. 2. Bilateral nephrolithiasis with calculi within the bilateral renal pelves. Mild left-sided hydroureteronephrosis with urothelial thickening is likely secondary to distal ureteral obstruction from the large pelvic mass. 3. No bowel obstruction. 4. Prior left-sided colonic resection with right lower quadrant ostomy and peristomal hernia redemonstrated. 5. 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 6. Additional findings as above. ACT 112: Negative or not required by law. The above report was generated using voice recognition software. It may contain grammatical, syntax or spelling errors. Electronically signed by: Michael Kilpatrick M.D. 01/01/2024 6:47 PM PG Care Time/CCT Total # of Minutes Spent Total Time Spent with Patient: Total time spent is greater than 50% in coordination of care (as documented) at patient's floor/unit and/or counseling patient: I spent 80 minutes overall addressing this case: 15 min in medical data review/discussion with referring provider(s) and/or preparation for the visi 20 min in direct interaction with the patient/exam 10 min in Advance Care Planning/Goals of Care discussions as detailed above in note (must be >16min) 15 min in subsequent review and synthesis of assessment and plan 20 min communicating with other providers regarding the patient's case: primary team, nursing, care mgt, pharmacy [place] [address] SUB INP/OBS CARE 3/50MIN Patient Type Established History Comprehensive Exam Comprehensive Medical Decision Making High Complexity Diagnoses Cancer related pain G89.3 Palliative care by specialist Z51.5 Weakness generalized R53.1 Liposarcoma of left lower extremity C49.22 Open wound of left knee with complication, initial encounter S81.002A Encounter type: initial encounter 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
[2024-01-10] MEDS: LORazepam 0.5 MG TAB PO PRN (22:29)
[2024-01-11 11:34] LABS: Hematocrit (blood only) 26.3 % (37.0-47.0); Hemoglobin 7.7 g/dl (12.0-16.0)
[2024-01-11 11:52] LABS: BUN Creatinine Ratio 16.3 (10-20); Calcium 8.2 mg/dl (8.6-10.3); Creatinine Clr Calc Pharmacy 102.1 ml/min; Est GFR (African American) 117.8 ml/min; Est GFR (Non-African American) 101.6 ml/min; Potassium 3.8 mmol/L (3.5-5.1)
--- NOTE | 2024-01-11 15:36 | Discharge Summary ---
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 History from the patient is unobtainable so her outpatient Epic records were extensively reviewed and her son at the bedside provides some additional information. Pt was admitted to [facility] 09/05/23- 09/09/23 when she was diagnosed with age-indeterminate left common femoral and superficial femoral vein DVTs as well as significant PVD for which she was started on Lovenox to bridge to warfarin. She also had an ongoing infection of the left AKA site, which was being treated with IV Dalvance. After discharge, she followed up with ID and wound care. At some point in October, it looks like she was diagnosed with osteomyelitis at [facility] and ultimately ended up with [facility] in [place] where she was treated although family was unclear on how she was treated. Records are not currently available to me but are being requested. During that admission, she was apparently diagnosed with "cancer in the bone" per her son and was recommended to have surgical removal with subsequent radiation and chemo, which patient initially refused. She was considering the surgical removal. She was discharged to [facility] but her family states she was unable to stay there for more than a couple of weeks due to insurance coverage. She was discharged from there to home where she lives with her and daughter and has been receiving home health services. Her family has been trying to get patient into the Cancer Center here as it sounds like she does not currently have a local oncologist. Since getting home from rehab, the family has noted progressive decline with increasing weakness. Pt typically uses a wheelchair and is active around the house, but she has been essentially lying in bed since coming home. Last night, she was interactive and alert, but this morning, her son and daughter noted she was more weak and confused so they called EMS who brought patient to the ED. Her son brings several pill bottles in with her to the ED including tizanidine, buspar, hydrocodone-acetaminophen, amitriptyline, and fentanyl pathches. He also reports that she has liquid morphine at home, which she has been taking for pain. He is unsure what other medications she is currently taking. She has a wound in her left groin, which he reports is chronic and has a history of MRSA infection. She has also had chronic issues with wounds on her AKA site. ABDOMINAL ULTRA LTD FINDINGS: Abdomen Ultrasound Limited: Real time images of the superficial soft tissues Left lower quadrant anterior abdomen in area of clinical concern in sagittal and transverse views were obtained. There is thick- walled complex collection and/or cystic lesion in the area of clinical concern. There are few scattered peripheral color Doppler registration may either represent flow within the wall of the lesion and/or in adjacent vessels. The lesion is measured approximate 3 x 1.1 x 1.9 cm. Finding possibly represent hematoma, abscess and/or complex cystic lesion of other origin. Further evaluation recommended which may include additional imaging modalities among other workup. CONCLUSION: 1. Left lower quadrant anterior abdomen complex lesion as described. Further evaluation recommended. ELECTRONICALLY SIGNED BY LEIA ZAPATA D.O. 12/22/2023 2:12:12 PM EDT. Admission Exam Per Admitting Provider General: Sick looking, lethargic, not in acute distress, on room air HEENT: LILIAN, MMM Chest: Fair breath sounds anteriorly, no wheezes or crackles CVS: Regular rate and rhythm, normal heart sounds, no murmur Abdomen: Soft, tenderness left lower quadrant, colostomy with stool, normal bowel sounds Neuro: Lethargic, arousable to verbal stimuli, answers basic questions, AAOx1 Extremities: Left AKA with stump wrapped Wound in left groin area-no purulent drainage Kevin with ernesto urine Principal Diagnosis UTI due to Serratia, Encephalopathy, Recurrent liposarcoma, Cancer related pain Discharge Exam General: Lying in bed eating lunch, not in acute distress, on room air HEENT: LILIAN, MMM Chest: Fair breath sounds anteriorly, no wheezes or crackles CVS: Regular rate and rhythm, normal heart sounds, no murmur Abdomen: Soft, tenderness left lower quadrant, colostomy with stool, normal bowel sounds Neuro: Awake, alert, answering questions appropriately Extremities: Left AKA with stump wrapped Kevin with clear urine Discharge Data Allergies Allergy/AdvReac Type Severity Reaction Status Date / Time vancomycin AdvReac Severe WORSENING Verified 10/11/23 13:05 RENAL FUNCTION cetirizine AdvReac Intermediate BOWEL Verified 10/11/23 13:05 CRAMPS gabapentin [From Neurontin] AdvReac Unknown DID NOT Verified 10/11/23 13:05 WORK FOR PAIN Consultations 01/01/24 15:47 ED Decision to Admit Stat 01/01/24 19:08 Consult Palliative Care Routine 01/05/24 15:36 Consult Radiation Oncology Routine Ordered Studies 01/01/24 14:09 CT head/brain wo con Stat 01/01/24 17:30 CT Abd and Pelvis [CT abd pelvis IV con only] Urgent Laboratory Results WBC 9.83 K/ul (4.8-10.8) 01/10/24 14:21 RBC 3.35 M/uL (4.20-5.40) L 01/10/24 14:21 Hgb 7.7 g/dl (12.0-16.0) L 01/11/24 11:16 Hct 26.3 % (37.0-47.0) L 01/11/24 11:16 MCV 77.9 fL (80.0-100.0) L 01/10/24 14:21 MCH 24.2 pg (25.0-34.0) L 01/10/24 14:21 MCHC 31.0 g/dL (32.0-36.0) L 01/10/24 14:21 RDW Std Deviation 53.4 fL (36.4-46.3) H 01/10/24 14:21 RDW Coeff of Leslie 19.3 % (11.5-14.5) H 01/10/24 14:21 Plt Count 411 K/uL (130-400) H 01/10/24 14:21 MPV 9.4 fL (9.4-12.4) 01/10/24 14:21 Immature Gran % (Auto) 0.3 % 01/10/24 14:21 Neut % (Auto) 72.6 % 01/10/24 14:21 Lymph % (Auto) 16.1 % 01/10/24 14:21 [place]au % (Auto) 9.4 % 01/10/24 14:21 Eos % (Auto) 1.3 % 01/10/24 14:21 Baso % (Auto) 0.3 % 01/10/24 14:21 Neut # (Auto) 7.14 K/uL (1.40-6.50) H 01/10/24 14:21 Lymph # (Auto) 1.58 K/uL (1.20-3.40) 01/10/24 14:21 [place] # (Auto) 0.92 K/uL (0.11-0.59) H 01/10/24 14:21 Eos # (Auto) 0.13 K/uL (0.00-0.50) 01/10/24 14:21 Baso # (Auto) 0.03 K/uL (0.00-0.20) 01/10/24 14:21 Immature Gran # (Auto) 0.03 K/uL (0.01-0.20) 01/10/24 14:21 Polychromasia 1+ 01/08/24 05:24 Echinocytes 1+ 01/06/24 05:29 PT 11.1 Seconds (9.0-12.0) 01/10/24 14:21 INR 1.0 (0.9-1.1) 01/10/24 14:21 Sodium 128 mmol/L (136-145) L 01/11/24 11:16 Potassium 3.8 mmol/L (3.5-5.1) 01/11/24 11:16 Chloride 94 mmol/L (98-107) L 01/11/24 11:16 Carbon Dioxide 26 mmol/L (21-32) 01/11/24 11:16 Anion Gap 8 (3-11) 01/11/24 11:16 BUN 7 mg/dl (6-23) 01/11/24 11:16 Creatinine 0.43 mg/dl (0.6-1.2) L 01/11/24 11:16 Est Cr Clr Drug Dosing 102.1 ml/min 01/11/24 11:16 Est GFR ( Amer) 117.8 ml/min 01/11/24 11:16 Est GFR (Non-Af Amer) 101.6 ml/min 01/11/24 11:16 BUN/Creatinine Ratio 16.3 (10-20) 01/11/24 11:16 Glucose 119 mg/dl (70-99(Fasting)) H 01/11/24 11:16 POC Glucose 105 mg/dl (70-99) H 01/02/24 11:28 Lactate 1.5 mmol/L (0.4-2.0) 01/01/24 13:59 Calcium 8.2 mg/dl (8.6-10.3) L 01/11/24 11:16 Phosphorus 2.9 mg/dl (2.5-4.9) 01/09/24 09:34 Magnesium 1.6 mg/dl (1.7-2.4) L 01/10/24 14:21 Total Bilirubin 0.2 mg/dl (0.2-1.0) 01/03/24 05:39 Direct Bilirubin 0.1 mg/dl (0-0.2) 01/01/24 13:59 AST 20 U/L (13-39) 01/03/24 05:39 ALT 10 U/L (7-52) 01/03/24 05:39 Alkaline Phosphatase 254 U/L (34-104) H 01/03/24 05:39 Troponin I High Sens 12.1 pg/ml (0-14) 01/01/24 13:59 Total Protein 5.6 gm/dl (6.0-8.3) L D 01/03/24 05:39 Albumin 2.5 gm/dl (3.4-5.0) L 01/03/24 05:39 Globulin 3.1 gm/dl (2.5-4.0) 01/03/24 05:39 Albumin/Globulin Ratio 0.8 (0.9-2) L 01/03/24 05:39 Procalcitonin 1.09 ng/ml (0-0.5) H 01/01/24 13:59 Urine Color Ernesto 01/01/24 13:54 Urine Appearance Cloudy (Clear) A 01/01/24 13:54 Urine pH 7.5 (4.5-7.5) 01/01/24 13:54 Ur Specific Widen 1.025 (1.000-1.030) 01/01/24 13:54 Urine Protein 3+ (Negative) H 01/01/24 13:54 Urine Glucose (UA) Negative (Negative) 01/01/24 13:54 Urine Ketones 1+ (Negative) H 01/01/24 13:54 Urine Blood 3+ (Negative) H 01/01/24 13:54 Urine Nitrite Positive (Negative) A 01/01/24 13:54 Urine Bilirubin Negative (Negative) 01/01/24 13:54 Urine Urobilinogen Negative (Negative) 01/01/24 13:54 Ur Leukocyte Esterase 3+ (Negative) H 01/01/24 13:54 Urine RBC 6-10 /hpf (0-2) H 01/01/24 13:54 Urine WBC >50 /hpf (0-5) H 01/01/24 13:54 Ur Epithelial Cells 3-5 /hpf (0-2) H 01/01/24 13:54 Urine Bacteria 1+ (None Seen) H 01/01/24 13:54 Nasal Screen MRSA (PCR) Positive (Negative) A 01/01/24 Unknown Random Vancomycin 16.6 mcg/ml (10-20) 01/03/24 11:50 Impressions Chest X-Ray 01/01/24 14:08 XR chest 1V portable HISTORY: 73 years-old Female Sepsis COMPARISON: 01/10/2022 TECHNIQUE: AP view of the chest FINDINGS: Cardiomediastinal and hilar silhouettes are within normal limits. No pneumothorax, pleural effusion or airspace consolidation. No overt pulmonary edema. Cholecystectomy. Lumbar spinal fusion hardware. Degenerative changes of the shoulders and spine. IMPRESSION: No acute process. ACT 112: Negative or not required by law. The above report was generated using voice recognition software. It may contain grammatical, syntax or spelling errors. Electronically signed by: Michael Kilpatrick M.D. 01/01/2024 3:[address] 01/01/24 14:[address] DOSE: 625.8 mGy.cm HISTORY: Altered mental status. TECHNIQUE: Multiaxial CT images of the head were performed without the use of intravenous contrast. Automated exposure control was utilized for this study. A dose lowering technique was utilized adhering to the principles of ALARA. Comparison: None. Findings: The paranasal sinuses and mastoid air cells are clear. The calvarium and skull base are intact. There is no mass, hematoma, midline shift, acute infarct. White matter hypodensity is nonspecific but suggestive of microvascular ischemic change. The ventricles and sulci demonstrate mild age-related involutional changes. Impression: No acute intracranial abnormality. ACT 112: Negative or not required by law. Electronically signed by: Akash Gross M.D. 01/01/2024 2:57 PM Abdomen/Pelvis CT 01/01/24 17:[address] WITH IV CONTRAST CT DOSE: 1180.16 mGy.cm HISTORY: Acute left lower quadrant abdominal pain . Prior left-sided colonic resection with right lower quadrant ostomy. LLQ anterior abd complex lesion US 12/21 TECHNIQUE: Multiaxial CT images of the abdomen and pelvis were performed following the IV administration of 92 cc of Optiray, A dose lowering technique was utilized adhering to the principles of ALARA. COMPARISON STUDY: CT abdomen and pelvis 12/31/2021, femur radiographs 07/21/2023, 03/03/2021, CT left hip 10/29/2020 FINDINGS: Cardiomegaly with coronary arterial calcifications. Mild dependent subsegmental bibasilar atelectasis. Right hemidiaphragmatic elevation. No free air identified. Unremarkable spleen, pancreas and adrenal glands. Cholecystectomy with likely postsurgical pneumobilia. The liver is otherwise unremarkable. There is patency of the hepatic and portal veins. Cortical scarring of the superior to mid pole right kidney. Bilateral nonobstructing renal calculi measuring up to 12 mm on the right. 1.5 cm calculus in the dependent left renal pelvis. There is layering debris versus calcifications within the dependent right renal pelvis. There is mild left-sided hydroureteronephrosis with urothelial thickening, likely secondary to distal obstruction secondary to a large pelvic mass as below. Atherosclerosis of the aorta. Expansile thrombus is noted within the infrarenal IVC and also within the bilateral common iliac veins. There is also thrombus in the left internal and external iliac veins and also possibly within the left femoral vein. 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 No definite lymphadenopathy. Urinary bladder wall thickening with Kevin catheter. Air is also present within the urinary bladder lumen. Circumferential wall thickening of the rectosigmoid. Add itional wall thickening of the cecum. There is a large cystic mass centered within the left hemipelvis encasing the left iliac bone and sacrum with involvement of the left psoas, iliopsoas, iliacus, gluteal, obturator internus and proximal thigh musculature. The mass contains marginal calcifications and overall measures approximately 15 x 15 x 21 cm. 3.27 m subcutaneous nodules in the left anterior abdominal wall. Areas of loculated fluid versus hypodense mesenteric nodules noted within the abdominal flow or quadrant. The mass extends into the left lateral abdominal wall. Lucent/osteolytic bony destruction is noted within portions of the left sacrum and iliac bone. Heterogeneous sclerotic appearance of the left hemipelvis and left proximal femur is a chronic finding. Chronic left proximal femoral fixated fracture deformity. Postoperative changes of the lumbar spine. Prior left-sided colonic resection with right lower quadrant ostomy and bowel- containing parastomal hernia redemonstrated. Additionally, there is a periumbilical hernia with diastases of 7.8 cm containing mesenteric fat and nonobstructed bowel. IMPRESSION: 1. There is a large mixed cystic and solid and partially calcified mass within the left hemipelvis as above encasing the left pelvic musculature and left hemipelvis with osseous lytic erosion of the sacrum and left iliac bone overall measuring up to approximately 21 cm. An indeterminate malignancy would be the differential of exclusion. Follow-up with oncology is needed. 2. Bilateral nephrolithiasis with calculi within the bilateral renal pelves. Mi ld left-sided hydroureteronephrosis with urothelial thickening is likely secondary to distal ureteral obstruction from the large pelvic mass. 3. No bowel obstruction. 4. Prior left-sided colonic resection with right lower quadrant ostomy and peristomal hernia redemonstrated. 5. 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 6. Additional findings as above. ACT 112: Negative or not required by law. The above report was generated using voice recognition software. It may contain grammatical, syntax or spelling errors. Electronically signed by: Michael Kilpatrick M.D. 01/01/2024 6:47 PM Hospital Course (1) UTI (urinary tract infection): Catheter associated UTI due to Serratia-completed 6 days of Rocephin 01/05. Remains afebrile and clinically stable with no urinary symptoms. Leukocytosis is resolved Recurrent liposarcoma- CT abdomen pelvis shows a large mixed cystic and solid and partially calcified mass within the left hemipelvis as above encasing the left pelvic musculature and left hemipelvis with osseous lytic erosion of the sacrum and left iliac bone overall measuring up to approximately 21 cm. Patient refused further treatment options including surgery chemo and declined even palliative radiation. Seen by palliative and going home on home hospice. Pain medications adjusted by palliative and pain is controlled with no need for further iv pain meds. Being discharged on couple days supply until home hospice can take over. Cancer-related pain- pain controlled with adjustment of opiates by palliative and is being discharged on same. DVT- CT shows extensive DVT with extension into IVC, this was despite being on Coumadin. She has been on therapeutic Lovenox. Per palliative as well as my detailed discussions with patient at bedside, she does not want to be on anticoagulation at discharge. Lovenox would not be covered and neither would the labs for coumadin. Metabolic encephalopathy on admission-likely due to UTI. Currently resolved Total Time Total Time Spent Total Time Spent (In Minutes): 40 Discharge Plan Discharge Items Patient Disposition: Hospice - Home Reason For Visit: UTI, CONFUSION Discharge Diagnosis: UTI due to Serratia, Encephalopathy, Recurrent liposarcoma, Cancer related pain Activity: Per Instructions section Non-emergency contact: Primary Care Provider Call non-emergency contact if: you have any medication questions, your symptoms worsen and your pain is not controlled Follow-up/Referrals: Sara Santos MD [Primary Care Provider] - Diet: Regular Addtl Attending Provider Instructions: You have chosen to go home on home hospice. Hospice agency will take care of you at home. Coumadin have been stopped after discussing with you. Pending Studies at Discharge: No Stand-Alone Forms: [id number] Medications and DC Order Prescriptions: New lorazepam 0.5 mg Tablet 0.5 mg PO TID PRN (Reason: anxiety) 2 Days Qty: 6 0RF polyethylene glycol 3350 [Miralax] 17 gram Powder In Packet 17 g PO DAILY Qty: 14 0RF lidocaine 5 % Adhesive Patch,Medicated 1 patch transdermal QAM Qty: 10 0RF oxycodone 10 mg tablet 10 mg PO Q6H PRN (Reason: pain) Qty: 8 0RF oxycodone [OxyContin] 30 mg tablet,oral only,ext.rel.12 hr 30 mg PO Q12H 3 Days Qty: 6 0RF Continued atorvastatin 20 mg tablet 20 mg PO HS tizanidine [Zanaflex] 4 mg Tablet 2 - 4 mg PO HS PRN (Reason: Muscle Spasm) buspirone 10 mg Tablet 10 mg PO BID pregabalin 150 mg capsule 150 mg PO TID alendronate 70 mg tablet 70 mg PO WK losartan 25 mg tablet 25 mg PO QAM docusate sodium [Colace] 100 mg Capsule 100 mg PO BID amitriptyline 50 mg tablet 50 mg PO HS amlodipine 10 mg tablet 10 mg PO QAM Discontinued naloxone 4 mg/actuation spray,non-aerosol 1 spray INTRANASAL UD PRN (Reason: - ) hydrocodone-acetaminophen 5-325 mg tablet 1 tab PO BID PRN (Reason: Mild Pain (Scale Score 1-4)) morphine 10 mg/5 mL solution See Rx Instructions .ROUTE .COMPLEX Rx Instructions: Take 3.75ML PO Q4H PRN PAIN on scale of (4-6) OR 7.5ML Q4H PRN PAIN on scale of (7-10) fentanyl 50 mcg/hr Patch 72 Hour 1 patch TRANSDERMAL Q72H warfarin 1 mg Tablet 1 mg PO DAILY Rx Instructions: currently on hold Discharge Orders: Discharge Order (Routine); Ordered 01/11/24 Ordered By: Blaze Stevenson Admission Data Admit Date/Time: 01/01/24 16:05 Attending Provider: Berna Gloria Admit Provider: Blaze Stevenson Primary Care Provider: Sara Santos Other Providers: Blaze Stevenson; [facility]; Ollie Hunt Other Interventions: Discharge Summary Assessment (RN) Last Done: 01/11/24 11:39
--- NOTE | 2024-01-13 10:58 | Communication Note ---
Date of Service: January 13, 2024 Call came through from Taya Estrada, who is patient's daughter and employee communications coordinator. She said her last dose of oxycontin 30mg was this morning and mom needs a refill. The PDMP was reviewed. This recent medication was confirmed dispensed at [facility] in [place] and sent there. Called Taya back to confirm the prescription for 10 days for cancer-related pain. Taya was counseled that this medication was effective for controlling pain but has dangerous side effects including respiratory suppression and , especially if it is crushed or taken with other narcotics. We reviewed additional medications on her home medication list that may interact with this medication including but not limited to lyrica, Zanaflex and the importance of not continuing drugs like fentanyl patch, vicodin and morphine solution which should have been stopped already. Taya was also counseled about the risk of bowel-related side effects including abdominal distention, constipation and vomiting. If these became concerning, immediate medical attention should be sought. Taya verbalized understanding with intent to comply and communicate these dangers with her mother. She also confirmed that she has naloxone spray and understands when to use this if needed. The patient is on Hospice and will review with her hospice provider early next week on how this medication regimen is working for refills as needed. DO Kevyn
== END 2024-01-11 17:20 | disposition hospice, home (50) | DRG 698 ==
LOC: ED 13:44 → SUATTDRO 16:05 → EDINP 16:05 → 4W 22:16
DX: N39.0 Urinary tract infection, site not specified; Z66 Do not resuscitate; I10 Essential (primary) hypertension; Q21.12 Patent foramen ovale; T83.511A Infection and inflammatory reaction due to indwelling urethral catheter, initial encounter; I82.220 Acute embolism and thrombosis of inferior vena cava; Z53.29 Procedure and treatment not carried out because of patient's decision for other reasons; Z88.1 Allergy status to other antibiotic agents; E87.1 Hypo-osmolality and hyponatremia; B96.89 Other specified bacterial agents as the cause of diseases classified elsewhere; Z86.14 Personal history of Methicillin resistant Staphylococcus aureus infection; A41.9 Sepsis, unspecified organism; Z93.3 Colostomy status; Z51.5 Encounter for palliative care; C79.51 Secondary malignant neoplasm of bone; C49.5 Malignant neoplasm of connective and soft tissue of pelvis; Y92.019 Unspecified place in single-family (private) house as the place of occurrence of the external cause; G89.3 Neoplasm related pain (acute) (chronic); Z89.612 Acquired absence of left leg above knee; Z80.8 Family history of malignant neoplasm of other organs or systems; Y81.2 Prosthetic and other implants, materials and accessory general- and plastic-surgery devices associated with adverse incidents; G62.9 Polyneuropathy, unspecified; I73.9 Peripheral vascular disease, unspecified; D64.9 Anemia, unspecified; Z86.718 Personal history of other venous thrombosis and embolism; G93.41 Metabolic encephalopathy; Z88.8 Allergy status to other drugs, medicaments and biological substances